=== PATIENT | female | born 1955 | race Caucasian/White ===

== ENCOUNTER 2021-11-02 11:17 | Emergency (ER) | payer MEDICARE, SELFPAY ==
--- NOTE | ~2021-11-02 | CT_ITS ---
EXAMINATION: CT lumbar spine wo con DATE: 11/02/2021 12:01 INDICATION: Ground-level fall. TECHNIQUE: Computed tomography (CT) of the lumbar spine was performed without intravenous contrast. A utomated exposure control and iterative reconstruction technique were employed. The dose-length produ ct was 1565.37 mGy-cm. COMPARISON: CT lumbar spine 03/26/2017 FINDINGS: There is hypolordosis of lumbar spine. There is mild chronic anterior wedging of T11 verteb ral body. There is severely decreased disc height from L2-L3 through L5-S1 with interbody fusion at L 3-L4. There is calcification of the thecal sac from L3 to L5. The following disc levels are specifica lly discussed: L1-L2: The disc is bulging. There is severe bilateral facet joint osteoarthritis. There is moderate r ight and mild left neural foraminal stenosis. There is mild central canal stenosis. L2-L3: The disc is bulging. There is severe bilateral facet joint osteoarthritis. There is moderate b ilateral neural foraminal stenosis. There is moderate central canal stenosis with posterior decompres arya. There is severe stenosis of right lateral recess. L3-L4: There is moderate bilateral facet joint hypertrophy. There is moderate bilateral neural forami nal stenosis. There is mild central canal stenosis with posterior decompression. L4-L5: The disc is bulging. There is severe bilateral facet joint osteoarthritis. There is severe rig ht and moderate left neural foraminal stenosis. There is moderate central canal stenosis. L5-S1: The disc is bulging. There is severe bilateral facet joint osteoarthritis. There is moderate b ilateral neural foraminal stenosis. There is mild central canal stenosis. IMPRESSION: 1. No fracture. 2. Severe lumbar spondylosis. 3. Arachnoiditis ossificans. Reviewed, dictated and finalized at location A.
[2021-11-02 11:18] VITALS: BP 131/104; PULSE 57; RESP 20; TEMP 36.7; O2SAT 100
--- NOTE | 2021-11-02 11:24 | ED_ITS ---
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 She landed on her buttock. She denies hitting her head or LOC and she has no neck or upper back pain. Onset (ago): hour(s) Fall from: wheelchair Fall witnessed: yes, by bystander Place fall occurred: street Loss of consciousness: none Prolonged down time: no Symptoms prior to fall: none Related Data Allergies Allergy/AdvReac Type Severity Reaction Status Date / Time latex Allergy Unknown Verified 03/25/17 19:50 Course Course Emergency Course: Pt CT is unremarkable for fracture. She and family at [facility] are advised of imaging results. Pain is controlled at this time. Plan to discharge home with RICE instructions, home medications for pain and muscle stiffness, FU with PCP if pain is not improving in 3-5 days Vital Signs Vital signs: Vital Signs Temperature 36.7 C 11/02/21 11:18 Pulse Rate 57 L 11/02/21 11:18 Respiratory Rate 20 11/02/21 11:18 Blood Pressure 131/104 H 11/02/21 11:18 Pulse Oximetry 100 11/02/21 11:18 Temperature 36.8 C 11/02/21 11:35 Pulse Rate 58 L 11/02/21 12:16 Respiratory Rate 28 H 11/02/21 12:16 Blood Pressure 172/67 H 11/02/21 12:16 Pulse Oximetry 97 11/02/21 12:16 MDM - Fall Differential Diagnosis Differential diagnosis: Likely other (fracture, sprain, strain, contusion) Discharge Plan Discharge Clinical Impression: Low back strain, Fall from ground level Patient Disposition: Home, Self-Care Condition: Improved Instructions: Antibiotic Form, Contusion in Adults (ED), Muscle Strain (ED) Additional Instructions: REST, ICE SORE AREAS OFF AND ON FOR 2 DAYS, CONTINUE HOME MEDICATIONS DIRECTED. FOLLOW UP WITH YOUR PRIMARY CARE PROVIDER IF PAIN IS NOT IMPROVING IN 3-5 DAYS Follow-up/Referrals: Robin,MD Soy [Primary Care Provider] -
[2021-11-02 11:35] VITALS: BP 186/88; PULSE 56; RESP 21; TEMP 36.8; O2SAT 100
[2021-11-02] MEDS: MORPHINE SULFATE (*CRX) 4 MG/ML INJ IV PUSH (11:50)
[2021-11-02 12:16] VITALS: BP 172/67; PULSE 58; RESP 28; O2SAT 97
[2021-11-02 12:37] VITALS: BP 156/72; PULSE 58; RESP 23; TEMP 36.7; O2SAT 96
--- NOTE | 2021-11-23 08:53 | ED_ITS ---
HPI - Fall General Chief Complaint: Fall Stated Complaint: ground level fall Time Seen by Provider: 11/02/21 11:20 Source: patient Mode of arrival: ambulatory Limitations: no limitations History of Present Illness Place fall occurred: street Related Data Allergies Allergy/AdvReac Type Severity Reaction Status Date / Time latex Allergy Unknown Verified 03/25/17 19:50 Review of Systems Review of Systems: refer to HPI Musculoskeletal: Musculoskeletal: Reports as per HPI and Reports back pain Comments: mild discomfort of the mid and low back, more concerned she may have caused an injury secondary to chronic back pain, denies bowel or bladder incontinence, saddle anesthesia, radicular pain or otherwise associated symptoms. Exam Const: Orientation/consciousness: patient oriented x3 HENMT: Head: normal to inspection Eyes: Conjunctivae: conjunctivae normal Pupils: Equal, round and reactive p upils present Neck: Neck: normal visual inspection Chest: Chest palpation & inspection: normal inspection of the chest Resp: Effort & Inspection: normal respiratory effort Cardio: Rate: regular rate GI: GI Palp: Yes Soft to palpation : General: Yes no CVA tenderness Back/Spine/Pelvis: Other: Pt is diffusely TTP over the lumbar paraspinal muscles bilaterally. No C T or L spine point tenderness, no step offs Neuro: General: patient oriented x3, moves all extremities, no meningeal signs and CN's II-XI intact bilaterally Extrem: General: normal to inspection Course Vital Signs Vital signs: Vital Signs Temperature 36.7 C 11/02/21 11:18 Pulse Rate 57 L 11/02/21 11:18 Respiratory Rate 20 11/02/21 11:18 Blood Pressure 131/104 H 11/02/21 11:18 Pulse Oximetry 100 11/02/21 11:18 Temperature 36.7 C 11/02/21 12:37 Pulse Rate 58 L 11/02/21 12:37 Respiratory Rate 23 H 11/02/21 12:37 Blood Pressure 156/72 H 11/02/21 12:37 Pulse Oximetry 96 11/02/21 12:37 MDM - Fall MDM Narrative Medical decision making narrative: contusion, fracture (given bariatric size), sprain, strain Differential Diagnosis Differential diagnosis: Likely compression fracture Discharge Plan Discharge Clinical Impression: Low back strain, Fall from ground level Patient Disposition: Home, Self-Care Condition: Improved Instructions: Antibiotic Form, Muscle Strain (ED), Contusion in Adults (ED) Additional Instructions: REST, ICE SORE AREAS OFF AND ON FOR 2 DAYS, CONTINUE HOME MEDICATIONS DIRECTED. FOLLOW UP WITH YOUR PRIMARY CARE PROVIDER IF PAIN IS NOT IMPROVING IN 3-5 DAYS Follow-up/Referrals: Robin,MD Soy [Primary Care Provider] - Time of Disposition: 12:32
== END 2021-11-02 12:45 | disposition home or self-care (01) ==
PROVIDERS: Emergency Provider Nurse Practitioner Family; PCP Internal Medicine
DX: S39.012A Strain of muscle, fascia and tendon of lower back, initial encounter (principal); M54.9 Dorsalgia, unspecified; G89.29 Other chronic pain; W05.0XXA Fall from non-moving wheelchair, initial encounter
CPT/HCPCS: 72131; 96374; 99284; J2270

== ENCOUNTER 2025-02-12 19:25 | Inpatient (IN) | payer MEDICARE, SELFPAY ==
--- NOTE | ~2025-02-12 | US_ITS ---
EXAMINATION: US renal BI DATE: 02/13/2025 16:14 INDICATION: Hydronephrosis TECHNIQUE: Multiple ultrasound grayscale images of the kidneys were obtained. COMPARISON: None. FINDINGS: The right kidney measures 12.2 x 6.2 x 6.0 cm. The left kidney measures 11.6 x 6.7 x 5.0 cm. The kidn eys demonstrate normal echogenicity. There is no hydronephrosis in either kidney. No stones identifi ed. The bladder is visualized, likely decompressed with a Olvera catheter reportedly in place. IMPRESSION: 1. Normal kidneys without hydronephrosis. Reviewed, dictated and finalized at location A.
--- NOTE | ~2025-02-12 | CT_ITS ---
Non-contrast CT scan of the Abdomen and Pelvis Clinical indication: Pyelonephritis Technique: 2.5 mm axial scans were obtained through the abdomen and pelvis without intravenous or or al contrast. Dose reduction technique was used on this scan by utilizing automated exposure control a nd iterative reconstruction technique. The dose-length product (DLP) was 2023.46 mGy-cm. Findings: Images through the lung bases reveal mild left basilar atelectatic change. There is mild to moderate right hydroureteronephrosis. There is mild left hydroureteronephrosis. No o bstructing stones are identified. There is a 3 mm nonobstructing left renal stone. The liver, spleen, pancreas, and adrenals appear normal. Gallbladder absent. There are atheroscleroti c calcifications of the aorta. . There is no evidence of bowel obstruction. Images through the pelvis were performed. There is no evidence of ascites or lymphadenopathy. Urinary bladder diffusely distended, but otherwise unremarkable. No adnexal mass. There is severe degenerative spondylosis of the visualized spine. Impression: Bilateral hydroureteronephrosis, as detailed above, right worse than left, without obstructing stone or mass evident. 3 mm nonobstructing left renal stone. Reviewed, dictated and finalized at location . Impression: Bilateral hydroureteronephrosis, as detailed above, right worse than left, with out obstructing stone or mass evident. 3 mm nonobstructing left renal stone.
--- NOTE | ~2025-02-12 | XR_ITS ---
CHEST RADIOGRAPH CLINICAL HISTORY: fever . COMPARISON: None available TECHNIQUE: Single portable view of the chest. FINDINGS Cardiomediastinal silhouette is unremarkable. Elevation of the left hemidiaphragm with adjacent compressive atelectasis. Increased interstitial markings are identified bilaterally, findings suggesting mild pulmonary vascul ar congestion. Blunting of the left costophrenic sulcus suggesting a small left-sided pleural effusion. The remainder of the lungs are clear. IMPRESSION: Mild pulmonary vascular congestion with a small left-sided pleural effusion. Reviewed, dictated and finalized at location A.
--- NOTE | ~2025-02-12 | US_ITS ---
Abdominal Sonogram: Real-time sonographic imaging of the abdomen was performed. Clinical History: Thrombocytopenia Findings: The liver appears normal with no evidence of mass lesion or bile duct dilatation. Main por bob vein demonstrates normal direction of flow. The spleen is normal in size without evidence of foca l lesion. The gallbladder is absent, compatible prior cholecystectomy. The common bile duct measures 8 mm. The pancreas, aorta, and IVC are largely obscured, but no gross abnormality seen. The right kidney measures 12.8 cm in length and the left kidney measures 12.2 cm. There is no hydronephrosis o r renal calculus. Impression: No significant abnormality seen. Somewhat suboptimal imaging related to patient body habitus. Reviewed, dictated and finalized at location . Impression: No significant abnormality seen. Somewhat suboptimal imaging related to patient body habitus.
[2025-02-12 19:20] VITALS: BP 171/69; PULSE 99; RESP 29; TEMP 38.4; O2SAT 95
--- NOTE | 2025-02-12 19:28 | ECG_ITS ---
Test Date: 2025-02-12 19:29:08 Measurements Intervals [place] Rate: 88 P: 57 AL: 175 QRS: -24 QRSD: 110 T: 66 QT: 346 QTc: 421 Interpretive Statements SINUS RHYTHM INTRAVENTRICULAR CONDUCTION DELAY DELAYED PRECORDIAL R/S TRANSITION LEFT VENTRICULAR HYPERTROPHY AND ST-T CHANGE BASELINE ARTIFACT- II, III, AVR, AVL, AVF, V1-V2, V4 BORDERLINE ECG No previous ECG available for comparison Electronically Signed On 02-12-2025 20:53:15 CDT by Homer Patrick D.O.
--- NOTE | 2025-02-12 19:43 | ED.GENADULT ---
HPI - General Adult General Chief complaint: Fever Stated complaint: FEVER, AMS, SEPSIS ALERT History of Present Illness HPI narrative: 69-year-old female with history of diabetes presents to the emergency department for evaluation for intermittent altered mental status. Patient does have a prior history of a left BKA and does have chronic wounds on her right lower extremity she is followed by wound care at [facility]. Patient has had worsening altered mental status fever for the past few days. Patient arrived to the emergency department by EMS. Patient's like complaint is that she feels shaky but patient family states that she does have a baseline tremor and this is unchanged than her baseline. Patient's temperature was 101.1? on arrival. Related Data Allergies Allergy/AdvReac Type Severity Reaction Status Date / Time latex Allergy Unknown Verified 03/25/17 19:50 Review of Systems Review of Systems: All systems reviewed & are unremarkable except as noted in HPI and below Exam Narrative: APPEARANCE: Ill-appearing HEAD: normocephalic, atraumatic. EYES: PERRLA/EOMI, conjunctivae clear. NOSE: Normal no drainage EARS:TMS clear with good light reflex. THROAT: Pharynx clear, no exudate. NECK: Supple. No adenopathy, no masses. RESPIRATORY: Airway patent, respirations nonlabored. Clear to auscultation bilaterally, no rales, rhonchi, wheezing. CARDIOVASCULAR: Regular rate and rhythm without murmurs rubs or gallops. ABDOMINAL: Soft, nontender, nondistended, normal bowel sounds MUSCULOSKELETAL: Moves all extremities. Strength/ROM intact, No edema, No calf tenderness. NEURO: Alert. Cranial nerves II through XII intact. Grossly intact SKIN: Warm, dry. Normal Color Course Vital Signs Vital signs: Vital Signs Temperature 101.1 F H 02/12/25 19:20 Pulse Rate 99 02/12/25 19:20 Respiratory Rate 29 H 02/12/25 19:20 Blood Pressure 171/69 H 02/12/25 19:20 Pulse Oximetry 95 02/12/25 19:20 Oxygen Delivery Room Air 02/12/25 19:20 Temperature 102.5 F H 02/12/25 21:33 Pulse Rate 78 02/12/25 21:33 Respiratory Rate 16 02/12/25 21:33 Blood Pressure 125/65 02/12/25 21:33 Pulse Oximetry 98 02/12/25 21:33 Oxygen Delivery Room Air 02/12/25 19:20 Medical Decision Making [facility] Narrative Medical decision making narrative: 69-year-old female presents emergency department for evaluation for altered mental status and tremor. Patient does have a chronic lower extremity wound on the right leg that does not appear to be acutely infected. Patient was febrile in the emergency department she was treated with Tylenol and ibuprofen, blood cultures were ordered. Patient has no elevated leukocytosis and hemoglobin 11.4, INR is 1.2, patient does have a mildly elevated glucose 186 with an anion gap of 13 with normal kidney function, UA was nitrate positive leukocyte esterase positive +4 bacteria and 50-100 white blood cells, urine culture was ordered and patient was started on IV Levaquin due to her penicillin allergy. Differential Diagnosis Differential Diagnosis: COVID, RSV, influenza, UTI, pneumonia Vital Signs Vital Signs: Vital Signs Temperature 101.1 F H 02/12/25 19:20 Pulse Rate 99 02/12/25 19:20 Respiratory Rate 29 H 02/12/25 19:20 Blood Pressure 171/69 H 02/12/25 19:20 Pulse Oximetry 95 02/12/25 19:20 Oxygen Delivery Room Air 02/12/25 19:20 Temperature 102.5 F H 02/12/25 21:33 Pulse Rate 78 02/12/25 21:33 Respiratory Rate 16 02/12/25 21:33 Blood Pressure 125/65 02/12/25 21:33 Pulse Oximetry 98 02/12/25 21:33 Oxygen Delivery Room Air 02/12/25 19:20 Lab Data Lab results reviewed: Yes I reviewed the patient's lab results. 02/12/25 19:46 02/12/25 19:46 Labs: Lab Results 02/12/25 02/12/25 Range/Units 19:46 20:18 WBC 9.5 (4.5-10.0) K/mm3 RBC 4.02 L (4.2-5.4) M/mm3 Hgb 11.4 L (12.0-15.0) g/dL Hct 35.5 L (37.0-47.0) % MCV 88.3 (80-100) fl MCH 28.4 (26-34) pg MCHC 32.1 (32-36) g/dl RDW 14.5 (11.5-14.5) % Plt Count 111 L (150-375) k/mm3 MPV 11.0 H (7.4-10.4) fl Immature Gran % (Auto) 0.4 (0-0.5) % Neut % (Auto) 90.1 H (45.5-73.1) % Lymph % (Auto) 3.8 L (18.3-44.2) % [place] % (Auto) 4.0 (2.6-8.5) % Eos % (Auto) 1.3 (0-4.4) % Baso % (Auto) 0.4 (0.2-1.2) % Lymph # (Auto) 0.36 L (0.9-3.2) K/mm3 [place] # (Auto) 0.4 (0.1-0.6) K/mm3 Eos # (Auto) 0.1 (0-0.3) K/mm3 Baso # (Auto) 0.0 (0.0-0.1) K/mm3 Abs Immat Gran (auto) 0.04 H (0.00-0.031) K/mm3 Absolute Neuts (auto) 8.6 H (1.3-6.7) K/mm3 Absolute Nucleated RBC 0.000 (0.0-0.012) K/mm3 Nucleated RBC % 0.0 (0.0-0.2) % PT 14.8 H (11.1-14.7) Seconds INR 1.2 APTT 22.9 (22.3-36.8) Seconds Sodium 137 (137-145) mmol/L Potassium 4.6 (3.4-5.0) mmol/L Chloride 106 (98-107) mmol/L Carbon Dioxide 18 L (22-30) mmol/L Anion Gap 13 H (4-12) mmol/L BUN 42 H (7-17) mg/dL Creatinine 0.96 (0.7-1.0) mg/dL Estim Creat Clear Calc 88 ml/min Estimated GFR 58 L (59 - ) Glucose 186 H (65-110) mg/dL Lactic Acid 1.3 (0.7-2.0) mmol/L Calcium 10.1 (8.4-10.2) mg/dL Total Bilirubin 0.7 (0.2-1.3) mg/dL AST 69 H (14-36) U/L ALT 58 H (6-35) U/L Alkaline Phosphatase 124 (38-126) U/L C-Reactive Protein 2.3 H (<1.0) mg/dL NT-Pro-B Natriuret Pep 404 H (19.9-100) pg/mL Total Protein 7.6 (6.3-8.2) g/dL Albumin 4.1 (3.5-5.1) g/dL Urine Color Yellow (Yellow) Urine Appearance Cloudy H (Clear) Urine pH 5.0 (5.0-9.0) Ur Specific [place] 1.018 (1.001-1.035) Urine Protein 2+ H (Negative) mg/dL Urine Glucose (UA) 3+ H (Negative) mg/dL Urine Ketones Negative (Negative) mg/dL Ur Blood (Man) Negative (Negative) Urine Nitrate Positive H (Negative) Urine Bilirubin Negative (Negative) Urine Urobilinogen 0.2 (<2.0) mg/dL Leukocyte Esterase Rfl 2+ H (Negative) RAVINDER/UL Urine RBC 0-2 (0-2) /hpf Urine WBC 51-100 H (0-3) /hpf Ur Squamous Epith Cells Occasional (Few) /hpf Urine Bacteria 4+ H /hpf Urine Casts 0-2 Imaging Data Radiologist's impression: Impressions Chest X-Ray 02/12/25 19:52 IMPRESSION: Mild pulmonary vascular congestion with a small left-sided pleural effusion. Discharge Plan Discharge Clinical Impression: Pyelonephritis, Fever Patient Disposition: Still a Patient Condition: Serious
[2025-02-12] MEDS: ACETAMINOPHEN 500 MG TABLET 1000 MG PO (19:52)
[2025-02-12] MEDS: KETOROLAC 30 MG/ML VIAL (*BKC) IV PUSH (19:52)
[2025-02-12 19:54] LABS: Hematocrit 35.5 % (37.0-47.0); Hemoglobin 11.4 g/dL (12.0-15.0); Immature Granulocyte Percent A 0.4 % (0-0.5); Lymphocytes Absolute Auto 0.36 K/mm3 (0.9-3.2); Mean Corpuscular HGB Conc 32.1 g/dl (32-36); Mean Corpuscular Hemoglobin 28.4 pg (26-34); Mean Corpuscular Volume 88.3 fl (80-100); Nucleated Red Blood Cells Absolute Auto 0.000 K/mm3 (0.0-0.012); Nucleated Red Blood Cells Perc 0.0 % (0.0-0.2); Platelet Count Result 111 k/mm3 (150-375); Red Blood Count 4.02 M/mm3 (4.2-5.4); White Blood Count 9.5 K/mm3 (4.5-10.0)
[2025-02-12 20:08] LABS: Alanine Aminotransferase 58 U/L (6-35); Albumin Level 4.1 g/dL (3.5-5.1); Alkaline Phosphatase 124 U/L (38-126); Anion Gap 13 mmol/L (4-12); Aspartate Amino Transferase 69 U/L (14-36); Bilirubin,Total 0.7 mg/dL (0.2-1.3); Blood Urea Nitrogen 42 mg/dL (7-17); Calcium 10.1 mg/dL (8.4-10.2); Carbon Dioxide 18 mmol/L (22-30); Chloride 106 mmol/L (98-107); Estimated CRCL calculation 88 ml/min; Estimated Glomerular Filt Rate 58; Glucose 186 mg/dL (65-110); Potassium 4.6 mmol/L (3.4-5.0); Sodium 137 mmol/L (137-145); Total Protein 7.6 g/dL (6.3-8.2)
[2025-02-12 20:16] LABS: INR 1.2; Prothrombin Time 14.8 Seconds (11.1-14.7)
[2025-02-12 20:17] LABS: Partial Thromboplastin Time 22.9 Seconds (22.3-36.8)
[2025-02-12 20:29] LABS: Add Urine Microscopic? YES; Appearance Urine Cloudy (Clear); Glucose Urine UA 3+ mg/dL (Negative); Leukocyte Esterase Ur 2+ LEU/UL (Negative); Nitrate Urine Positive (Negative); Non Pathogenic Casts 0-2; Specific Grav Ur 1.018 (1.001-1.035)
[2025-02-12 20:50] LABS: CRP 2.3 mg/dL (<1.0)
[2025-02-12] MEDS: LACTATED RINGERS 1,000 ML 250 ML IV CONT (20:54)
[2025-02-12] MEDS: levoFLOXacin 750 MG/D5W 150 ML 750 MG/150 ML BAG 100 MG IVPB (20:55)
[2025-02-12 21:06] LABS: NT Pro B Type Natriuretic Pept 404 pg/mL (19.9-100)
[2025-02-12 21:10] LABS: Alveolar/Arterial O2 Gradient 43.7 mmHg; Carboxyhemoglobin 0.7 % THb (0-2.0); Fractional Inspired Oxygen 21 %; HCO3 ABG 19.4 mEq/l (22.0-26.0); Methemoglobin ABG 0.3 %THb (0-1.5); Oxygen Content ABG 14.8 %vol (16.0-22.0); Oxygen Saturation ABG 95.1 % (95.0-100.0); PCO2 ABG 29.3 mmHg (35.0-45.0); PO2 ABG 70.9 mmHg (80.0-100.0); PO2 FiO2 Ratio Arterial Blood 3.38 %; Reduced Hemoglobin 6.0 %THb (0-5.0)
[2025-02-12 21:12] LABS: Modified Allen's Test Pass; Site Drawn RIGHT RADIAL
[2025-02-12 21:33] VITALS: BP 125/65; PULSE 78; RESP 16; TEMP 39.2; O2SAT 98
[2025-02-12] MEDS: ACETAMINOPHEN 500 MG TABLET PO (21:51)
--- NOTE | 2025-02-12 21:51 | PM.IMHP ---
H&P: HPI History of Present Illness Date/Time: 02/12/25 21:51 Chief Complaint: Fever, incoherence, UTI Narrative: The patient presented with acute onset fever, incoherence, and malaise beginning around 5:30 PM today. She reports feeling well earlier in the day and developed symptoms suddenly after supper. She was brought to the hospital by ambulance from her home in [place], as advised by EMS for proximity, as her usual [facility] facilities were further away. She has a history of chronic right leg wounds (requiring bandage changes three times weekly) and a left leg amputation two years ago at [facility]. She denies any history of Parkinson?s disease or multiple sclerosis but reports rhythmic arm shaking of unclear etiology, which is not associated with any massive disease. She has been noted to be dehydrated and has evidence of a urinary tract infection. She has experienced confusion, prompting admission for overnight observation, which she reluctantly agreed to. She reports pain with movement in her right mid abdomen area (present for 3?4 weeks), but denies chest pain (in the cardiac sense) or shortness of breath. She has had decreased urinary frequency (possibly twice daily) and dysuria at the end of urination for about a month. No nausea or vomiting. She has been seen regularly [facility] every Monday, including earlier today. She reports feeling very cold at home prior to arrival, turning on the heat, which was likely related to the onset of her fever. She has a Dexcom continuous glucose monitor (model 7); currently worn on her abdomen because she kept dislodging in from her arm. Her recent blood glucose readings have been within a good range (last reading 124 mg/dL).. She reports significant thirst and dry tongue despite drinking substantial fluids (64 oz water from a 32-ounce cup and two root beers today), noting she is still dehydrated. No known medication allergies except latex and possibly another, unspecified, mild allergy that the patient cannot recall. Review of Systems Review of Systems: Constitutional: Fever, chills, malaise, incoherence, dehydration, significant thirst, dry tongue Respiratory: No shortness of breath Cardiovascular: No chest pain (cardiac type) Gastrointestinal: No nausea, no vomiting Genitourinary: Dysuria at end of urination (1 month), decreased urinary frequency (possibly twice daily) Musculoskeletal: Chronic right leg wounds, left leg amputation (2 years ago), pain with movement in chest area (3?4 weeks), rhythmic arm shaking of unclear etiology, not associated with massive disease Skin: Chronic right leg wounds Neurological: Confusion, incoherence, no known neurodegenerative disease (Parkinson's or MS) Endocrine: Diabetes (on Dexcom CGM), recent glucose readings normal Allergic/Immunologic: Latex allergy, possible additional mild allergy (unspecified) All systems reviewed & are unremarkable except as noted in HPI and below PMFSH Surgical History Surgical History Hx of left BKA Family History Family History Father Acute myocardial infarction Mother Diabetes mellitus Social History Social History Smoking status: Light tobacco smoker Tobacco type: cigarettes Second hand tobacco smoke exposure: Yes Alcohol intake: current Drinks per week: 0 Substance use: never Substance use type: does not use Do You Feel Safe in your Home?: Yes Lack of Transportation: No Lack of Food: Never True Current Housing: I Have Housing Concerned About Future Housing: No Difficulty Paying Gas/Electric Bills: No Difficulty Paying for Meds: No Currently Unemployed: No Education: Decline to Answer Difficulty w/ Childcare or Family Care: No Spiritual care concerns: No Meds Home Medications and Allergies Home Medications ?Medication ?Instructions ?Recorded ?Confirmed ?Type amlodipine 10 mg tablet 10 mg PO DAILY 02/13/25 02/13/25 History aripiprazole 10 mg tablet 10 mg PO DAILY 02/13/25 02/13/25 History atorvastatin 80 mg tablet 80 mg PO DAILY 02/13/25 02/13/25 History baclofen 10 mg tablet 10 mg PO TID PRN muscle spasm 02/13/25 02/13/25 History clopidogrel 75 mg tablet 75 mg PO DAILY 02/13/25 02/13/25 History dapagliflozin propanediol 10 mg 10 mg PO DAILY 02/13/25 02/13/25 History tablet (Farxiga) duloxetine 60 mg capsule,delayed 60 mg PO QAM 02/13/25 02/13/25 History release ezetimibe 10 mg tablet 10 mg PO DAILY 02/13/25 02/13/25 History hydralazine 50 mg tablet mg 02/13/25 History Allergies Allergy/AdvReac Type Severity Reaction Status Date / Time latex Allergy Unknown Unknown Verified 02/12/25 22:38 Vital Signs Vital Signs - 24 hr 02/12/25 19:20 02/12/25 21:33 Temperature 38.4 C H 39.2 C H Pulse Rate 99 78 Respiratory Rate 29 H 16 Blood Pressure 171/69 H Pulse Oximetry 95 98 Oxygen Delivery Room Air Exam Narrative: GENERAL: Obese, left BKA, wounds right leg, awake, alert, oriented, no acute distress HEAD: Normocephalic, atraumatic. ENT:? Mucous membranes dry despite drinking fluids well today CHEST: Clear to auscultation.? No respiratory distress. HEART: Regular rate and rhythm. ? Normal peripheral pulses. ABDOMEN: Soft, nontender, nondistended. EXTREMITIES: Left BKA, right leg with multiple chronic wounds, no drainage or erythema SKIN: Warm dry normal color NEURO: Alert and oriented x3. Bilateral upper extremity gross tremors which patient states is chronic PSYCH: Normal mood and affect H&P: Results Labs Labs: Short CBC 02/12/25 Range/Units 19:46 WBC 9.5 (4.5-10.0) K/mm3 Hgb 11.4 L (12.0-15.0) g/dL Hct 35.5 L (37.0-47.0) % Plt Count 111 L (150-375) k/mm3 BMP 02/12/25 19:46 Sodium 137 Potassium 4.6 Chloride 106 Carbon Dioxide 18 L BUN 42 H Creatinine 0.96 Glucose 186 H Calcium 10.1 Liver Function 02/12/25 Range/Units 19:46 Total Bilirubin 0.7 (0.2-1.3) mg/dL AST 69 H (14-36) U/L ALT 58 H (6-35) U/L Alkaline Phosphatase 124 (38-126) U/L Albumin 4.1 (3.5-5.1) g/dL Urine 02/12/25 Range/Units 20:18 Urine Color Yellow (Yellow) Urine Appearance Cloudy H (Clear) Urine pH 5.0 (5.0-9.0) Ur Specific [place] 1.018 (1.001-1.035) Urine Protein 2+ H (Negative) mg/dL Urine Glucose (UA) 3+ H (Negative) mg/dL ABG ABG results: PH 7.439, pCO2 29.3, PO2 70.9, HC03 19.4, O2 saturation 95.1 Attestation: I personally reviewed and interpreted this ABG as follows: Interpretation: Compensated metabolic acidosis Pulse Oximetry SpO2 results: 95-100% on room air Attestation: I personally reviewed and interpreted this pulse oximetry as follows: Interpretation: No need for supplemental oxygenation at this ECG Attestation: I personally reviewed and interpreted this ECG as follows: ECG completion date: 02/12/25 ECG completion time: 19:29 Prior ECG tracings: not available for review Interpretation: Sinus rhythm rate of 88 SD interval 175 QRS duration 110 QTC 421 QRS axis -24 2, STEMI, nonspecific ST changes and LVH findings Imaging Chest x-ray: Radiologist's impression: CHEST RADIOGRAPH CLINICAL HISTORY: fever . COMPARISON: None available TECHNIQUE: Single portable view of the chest. FINDINGS Cardiomediastinal silhouette is unremarkable. Elevation of the left hemidiaphragm with adjacent compressive atelectasis. Increased interstitial markings are identified bilaterally, findings suggesting mild pulmonary vascular congestion. Blunting of the left costophrenic sulcus suggesting a small left-sided pleural effusion. The remainder of the lungs are clear. IMPRESSION: Mild pulmonary vascular congestion with a small left-sided pleural effusion. Reviewed, dictated and finalized at location A. Assessment and Plan Assessment and plan (1) Pyelonephritis: Code(s): N12 - Tubulo-interstitial nephritis, not specified as acute or chronic Status: Acute Assessment and Plan: -Presented with fever, altered mental status -Mental status improved with medical treatments so far -Fever resistant to Tylenol and ketorolac -WBC 9.5, CRP 2.3 -abnormal urine with positive nitrates, 2+ leukocyte esterase, 51-100 wbc's and 4+ urine bacteria -urine and blood cultures in process -prior history of requiring straight catheterization for urinary retention, bladder scan Q6 and straight cath if retaining (2) Fever: Code(s): R50.9 - Fever, unspecified Status: Acute Assessment and Plan: -T-max 39.2, took ibuprofen at home -Still 38.3 after a gram of Tylenol and IV ketorolac -Additional 500 mg Tylenol given -IV Levaquin given for pyelonephritis in ER, chosen due to possible PCN allergy per ER provider -Patient and family not able to confirm PCN allergy, only latex and maybe something else minor -CT scan abdomen pelvis ordered to rule out obstructive uropathy (3) Pulmonary vascular congestion: Code(s): R09.89 - Other specified symptoms and signs involving the circulatory and respiratory systems Status: Acute Assessment and Plan: -CXR with significant findings of pulmonary vascular congestion and small pleural effusion -BNP 404 -IV fluids LR 1500 mL given over 6 hours to prevent flash pulmonary edema -No records on file here, obtain echocardiogram recent report or obtain echocardiogram imaging recommended. (4) Metabolic acidosis: Code(s): E87.20 - Acidosis, unspecified Status: Acute Assessment and Plan: -Urine ketones noted with anion gap of 13 -Normal blood sugar -Patient appears mildly dehydrated with dry mucous membranes but is not in DKA -ABG shows overcompensated metabolic acidosis or more likely chronic metabolic alkalosis with acute metabolic acidosis and respiratory compensation of acute change -Patient does take Farxiga, possible mild euglycemic DKA initially present with confusion, nausea, abdominal pain... -Recheck metabolic panel in the morning and and will add beta-hydroxybutyrate (5) Diabetes mellitus: Code(s): E11.9 - Type 2 diabetes mellitus without complications Status: Acute Assessment and Plan: -Previously very uncontrolled and led to left BKA -Currently takes Farxiga and is better controlled -Wears Dexcom 7 but is on abdomen instead of back of arm, uncertain if this is ok with version 7... -Add A1c to labs -ACHS fingerstick glucose checks with high dose SSI -Consider holding Farxiga/Jardiance if Beta-hydroxybutyrate is elevated (6) Hx of left BKA: Code(s): Z89.512 - Acquired absence of left leg below knee Status: Acute Assessment and Plan: -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 diabetes -Chronic wounds present on right lower extremity, follows with [facility] VTE Prophylaxis VTE prophylaxis: pharmacologic ordered (Lovenox 40 mg BID (due to weight) Total time spent with this patient 115 minutes including critical care time documented below: Due to a high probability of clinically significant, life threatening deterioration, the patient required my highest level of preparedness to intervene emergently and I personally spent this critical care time directly and personally managing the patient. This critical care time included obtaining a history; examining the patient; pulse oximetry; ordering and review of studies; arranging urgent treatment with development of a management plan; evaluation of patient's response to treatment; frequent reassessment; and discussions with other providers. It was exclusive of separately billable procedures and treating other patients and teaching time. Please see Assessment and Plan section and the rest of the note for further information on patient assessment and treatment. Critical Care time: 35 minutes Hospitalist MIPS Advance Care Plan I have confirmed that the patient's Advanced Care Plan is present, code status is documented, or surrogate decision maker is listed in patient medical record.: Yes Medication Reconciliation I have utilized all available resources to obtain, update and review the patients current medications (includes all prescriptions, OTC, herbals, cannabis, and nutritional supplements).: Yes
[2025-02-12 22:50] VITALS: TEMP 38.3
[2025-02-12 23:27] VITALS: BMI 38.2
--- NOTE | 2025-02-12 23:47 | ADMGEN ---
This patient, Cassi Yo, was admitted to [facility] Surg Room 324-02, arrived to the floor at 2252. Patient/family oriented to hospital policies and general routines including ID bracelet, bed and alarms, visiting hours, pain management, procedures, bathroom and other care routines, personal items, smoking policy, room service/diet, and visiting hours. Information on how to activate the Rapid Response Team has been discussed. Patient/Family are encouraged to report perceived risks to care and to ask questions if they do not understand what they are told or what they should do.
[2025-02-13] VITALS (13 sets, daily range): BP systolic 125–154; BP diastolic 58–91; PULSE 59–92; RESP 16–24; TEMP 36.1–37.1; O2SAT 94–100
--- NOTE | 2025-02-13 | ECHO_ITS ---
Patient Info Name: Cassi Yo Age: 69 years : 1955 Gender: Female Ht: 75 in Wt: 306 lbs BSA: 2.76 m2 HR: 74 bpm BP: 152 / 84 mmHg Technical Quality: Good Exam Date: 02/13/2025 11:39 AM Patient Status: O Admit Date: 02/12/2025 Exam Type: CA echo dop color flow w con Complete two-dimensional, color flow and Doppler transthoracic echocardiogram is performed with contrast to opacify the left ventricle and to improve the deliniation of the left ventricle endocardial borders. Staff Referring Physician: Jayne Green MD Senior Analyst: Eileen Rodrigez Attending Provider: Antione Deras Contrast/Agitated Saline Contrast/Ag. Saline: Definity Amount: 3.00 ml Administered By: Eileen Rodrigez Existing IV Access: Yes IV Access Condition: patent with no signs of infiltration Summary 1. There is normal biventricular size and systolic function. 2. There are no significant valvular abnormalities. Left Ventricle The left ventricle is normal in size and systolic function. The left ventricular ejection fraction is visually estimated to be 60-65%. Right Ventricle The right ventricle is normal in size and systolic function. Left Atria The left atrium is normal size. Right Atria The right atrium is normal size. Atrial Septum Atrial septum is visually intact. Aortic Valve The aortic valve is trileaflet and opens well. There is no aortic regurgitation. Pulmonic Valve The pulmonic valve is not well visualized. There is no pulmonic valve regurgitation. Mitral Valve The mitral valve leaflets are sclerotic. There is no mitral stenosis. There is trace mitral regurgitation. Tricuspid Valve The tricuspid valve is grossly normal. There is trace tricuspid regurgitation. Pericardium/Pleural Pericardium is normal in appearance with no evidence for significant pericardial effusion. Inferior Vena Cava Inferior vena cava is not well visualized. Aorta The aortic root at the level of the sinus of Valsalva measures 3.0 cm in diameter. Left Ventricular Outflow Tract Name Value Normal LVOT 2D LVOT Diameter 2.2 cm LVOT Doppler LVOT Peak Velocity 152 cm/s LVOT Peak Gradient 9 mmHg LVOT Mean Gradient 5 mmHg LVOT VTI 33 cm LVOT VTI/AV VTI Ratio 0.8 LVOT Stroke Volume 128 ml LVOT CO 9.4 l/min LVOT CI 3.4 l/min/m2 Pulmonic Valve Name Value Normal RVOT Doppler RVOT Peak Velocity 117 cm/s RVOT Peak Gradient 6 mmHg PV Doppler PV Peak Velocity 138 cm/s PV Peak Gradient 8 mmHg Mitral Valve Name Value Normal MV Diastolic Function MV E Peak Velocity 92 cm/s MV A Peak Velocity 95 cm/s MV E/A 1.0 MV Decel Time (PW) 285 ms MV Annular TDI MV E/e' (Septal) 11.2 MV E/e' (Lateral) 7.2 MV E/e' (Average) 9.2 Tricuspid Valve Name Value Normal TV Regurgitation Doppler TR Peak Velocity 259 cm/s TR Peak Gradient 27 mmHg Aortic Valve Name Value Normal AV Doppler AV Peak Velocity 207 cm/s AV Peak Gradient 17 mmHg AV Mean Gradient 8 mmHg AV VTI 43 cm AV Area (Cont Eq VTI) 2.9 cm2 >=3.0 AV Area (Cont Eq Honorio) 2.9 cm2 AV DI (Honorio) 0.74 AV Regurgitation 2D LVOT Area 3.9 cm2 Ventricles Name Value Normal LV Dimensions 2D/MM IVS Diastolic Thickness (2D) 1.3 cm 0.6-1.0 LVID Diastole (2D) 4.5 cm 3.8-5.2 LVIW Diastolic Thickness (2D) 1.0 cm 0.6-0.9 LVID Systole (2D) 3.0 cm 2.2-3.5 LVOT Diameter 2.2 cm LV Mass (2D Cubed) 184.85 g 67.00-162.00 LV Mass Index (2D Cubed) 67 g/m2 43-95 Relative Wall Thickness (2D) 0.44 <=0.42 LV Fractional Shortening/Ejection Fraction 2D/MM LV Fractional Shortening (2D) 35 % 27-45 LV EF (2D Teichholz) 64 % LV Diastolic Volume (4C MOD) 140 ml LV EF (4C MOD) 65 % LV Diastolic Volume (2C MOD) 91 ml LV EF (2C MOD) 54 % LV Diastolic Volume (BP MOD) 118 ml 46-106 LV Diastolic Volume Index (BP MOD) 43 ml/m2 29-61 LV Systolic Volume (BP MOD) 45 ml 14-42 LV Systolic Volume Index (BP MOD) 16 ml/m2 8-24 LV EF (BP MOD) 62 % 54-74 LV Diastolic Length (4C) 9.1 cm LV Systolic Length (4C) 8.4 cm LV Stroke Volume (4C MOD) 91 ml Atria Name Value Normal LA Dimensions LA Volume (4C A-L) 63 ml LA Volume (BP A-L) 65 ml RA Dimensions RA Systolic Major Solon Length (4C) 6.2 cm 2.2-2.8 RA Area (4C) 20.4 cm2 <=18.0 Report Signatures
[2025-02-13 01:41] LABS: Hemoglobin A1C 6.3 % (<5.7)
[2025-02-13 02:09] LABS: Procalcitonin 0.6 ng/mL
--- NOTE | 2025-02-13 05:19 | PC.NURSE ---
Patient stated that her sister Allyn would be in today 02/13/25 to bring in her Dexcom Monitor and Medication list.
[2025-02-13 07:04] LABS: Hematocrit 34.2 % (37.0-47.0); Hemoglobin 10.6 g/dL (12.0-15.0); Immature Granulocyte Percent A 0.4 % (0-0.5); Immature Platelet Fraction Pct 2.4 % (0.9-11.2); Lymphocytes Absolute Auto 0.26 K/mm3 (0.9-3.2); Mean Corpuscular HGB Conc 31.0 g/dl (32-36); Mean Corpuscular Hemoglobin 27.8 pg (26-34); Mean Corpuscular Volume 89.8 fl (80-100); Nucleated Red Blood Cells Absolute Auto 0.000 K/mm3 (0.0-0.012); Nucleated Red Blood Cells Perc 0.0 % (0.0-0.2); Platelet Count Result 74 k/mm3 (150-375); Red Blood Count 3.81 M/mm3 (4.2-5.4); White Blood Count 7.5 K/mm3 (4.5-10.0)
[2025-02-13 07:21] LABS: Beta-Hydroxybutyrate/Acetoacetate 0.65 mmol/L (0.02-0.27)
[2025-02-13 07:22] LABS: Alanine Aminotransferase 119 U/L (6-35); Albumin Level 3.8 g/dL (3.5-5.1); Alkaline Phosphatase 140 U/L (38-126); Anion Gap 12 mmol/L (4-12); Aspartate Amino Transferase 188 U/L (14-36); Bilirubin,Total 0.9 mg/dL (0.2-1.3); Blood Urea Nitrogen 37 mg/dL (7-17); Calcium 9.9 mg/dL (8.4-10.2); Carbon Dioxide 19 mmol/L (22-30); Chloride 105 mmol/L (98-107); Estimated CRCL calculation 75 ml/min; Estimated Glomerular Filt Rate 52; Glucose 171 mg/dL (65-110); Magnesium 1.9 mg/dL (1.6-2.3); Potassium 4.1 mmol/L (3.4-5.0); Sodium 136 mmol/L (137-145); Total Protein 7.1 g/dL (6.3-8.2)
[2025-02-13] MEDS: DULoxetine HCL 60 MG CAPSULE.DR PO (08:36)
[2025-02-13] MEDS: CLOPIDOGREL BISULFATE 75 MG TABLET PO (08:36)
[2025-02-13] MEDS: EZETIMIBE 10 MG TABLET PO (08:36)
[2025-02-13] MEDS: ATORVASTATIN 40 MG TABLET 80 MG PO (08:36)
[2025-02-13] MEDS: ENOXAPARIN 40 MG/0.4 ML SYRINGE SUB-Q (08:57)
[2025-02-13] MEDS: PERFLUTREN LIPID MICROSPHERES 1.5 ML VIAL DILUTED TO 10 ML TOTAL VOLUME IV PUSH (11:45)
[2025-02-13] MEDS: INSULIN ASPART (*BKC) 100 UNITS/ML 20 UNITS SUB-Q ×2 (12:06→17:46)
--- NOTE | 2025-02-13 12:19 | IVDEFINITY ---
Prior to administration of IV Definity the patient was educated on the risks and benefits of the imaging enhancing agent including potential adverse side effects. The patient verbalized understanding. Allergies were verified. No exclusion criteria were identified and at least one of the following inclusion criteria were met: 1) physician request, 2) patient technically difficult to image (per the [place] [employer]ocardi[employer] guidelines of two or more segments not discernable within the apical view), or 3) questionable left ventricular function. ?
--- NOTE | 2025-02-13 13:39 | PM.IMPN ---
Progress Note: A&P Assessment and Plan (1) Pyelonephritis: Code(s): N12 - Tubulo-interstitial nephritis, not specified as acute or chronic Status: Acute Assessment and Plan: -Presented with fever, altered mental status -pt has clemons cath in situ -prior history of requiring straight catheterization for urinary retention - consult urology - start iv levaquin - wc much improved - order renal us - await UC and BC (2) Fever: Code(s): R50.9 - Fever, unspecified Status: Acute Assessment and Plan: -T-max 39.2, took ibuprofen at home -Still 38.3 after a gram of Tylenol and IV ketorolac in ED no fever now -Tylenol ordered for fever (3) Pulmonary vascular congestion: Code(s): R09.89 - Other specified symptoms and signs involving the circulatory and respiratory systems Status: Acute Assessment and Plan: -CXR with significant findings of pulmonary vascular congestion and small pleural effusion -BNP 404 - give fluids sparingly (4) Metabolic acidosis: Code(s): E87.20 - Acidosis, unspecified Status: Acute Assessment and Plan: -Urine ketones noted with anion gap of 13 -Normal blood sugar -give fluids sparingly (5) Diabetes mellitus: Code(s): E11.9 - Type 2 diabetes mellitus without complications Status: Acute Assessment and Plan: -Previously very uncontrolled and led to left BKA -restart home insulin -Consider holding Farxiga/Jardiance if Beta-hydroxybutyrate is elevated (6) Hx of left BKA: Code(s): Z89.512 - Acquired absence of left leg below knee Status: Acute Assessment and Plan: -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 She reports feeling well earlier in the day and developed symptoms suddenly after supper. She was brought to the hospital by ambulance from her home in [place], as advised by EMS for proximity, as her usual [facility] facilities were further away. She has a history of chronic right leg wounds (requiring bandage changes three times weekly) and a left leg amputation two years ago at [facility]. She denies any history of Parkinson?s disease or multiple sclerosis but reports rhythmic arm shaking of unclear etiology, which is not associated with any massive disease. She has been noted to be dehydrated and has evidence of a urinary tract infection. Pt admitted for fever, pyelonephritis, acidosis ct shows - right hydroureteronephrosis. There is mild left hydroureteronephrosis. No obstructing stones are identified. There is a 3 mm nonobstructing left renal stone. urology consulted Review of Systems Review of Systems: Pt feels unwell sugars are running high ongoing R flank pains Exam Narrative: GENERAL: Obese, left BKA, wounds right leg chronic old wound ENT:? Mucous membranes dry despite drinking fluids well today CHEST: Clear to auscultation.? No respiratory distress. HEART: Regular rate and rhythm. ? Normal peripheral pulses. ABDOMEN: Soft, nontender, nondistended. EXTREMITIES: Left BKA, right leg with multiple chronic wounds, no drainage or erythema SKIN: Warm dry normal color NEURO: Alert and oriented x3. Bilateral upper extremity gross tremors which patient states is chronic PSYCH: Normal mood and affect Objective Data Vital Signs Vital Signs: Vital Signs - 24 hr 02/12/25 19:20 02/12/25 21:33 02/12/25 22:50 Temperature 38.4 C H 39.2 C H 38.3 C H Pulse Rate 99 78 Respiratory Rate 29 H 16 Blood Pressure 171/69 H 125/65 Pulse Oximetry 95 98 Oxygen Delivery Room Air 02/13/25 00:15 02/13/25 02:49 02/13/25 04:00 Temperature 36.8 C Pulse Rate 59 L 69 70 Respiratory Rate 24 H Blood Pressure 125/91 H Pulse Oximetry 94 Oxygen Delivery 02/13/25 06:00 02/13/25 08:00 02/13/25 08:35 Temperature 36.1 C L Pulse Rate 92 80 Respiratory Rate 24 H Blood Pressure 152/84 H Pulse Oximetry 100 Oxygen Delivery Room Air 02/13/25 12:00 02/13/25 12:13 Temperature Pulse Rate 71 Respiratory Rate Blood Pressure Pulse Oximetry 94 Oxygen Delivery Room Air Intake/Output Intake/Output: Intake & Output 02/10/25 02/11/25 02/12/25 02/13/25 23:59 23:59 23:59 23:59 Intake Total 240 Output Total 100 1500 Balance -100 -1260 Meds/Results Medications: Active Medications Generic Name Dose Route Start Last Admin Trade Name Freq PRN Reason Stop Dose Admin Acetaminophen 325 mg 02/13/25 14:00 Acetaminophen 325 Mg Tablet PO 0900,1400,2100 [facility] Amlodipine Besylate 10 mg 02/13/25 09:00 02/13/25 08:36 Amlodipine Besylate 10 Mg Tablet PO 10 mg DAILY [facility] Administration Aripiprazole 10 mg 02/13/25 09:00 02/13/25 08:36 Aripiprazole 10 Mg Tablet PO 10 mg DAILY [facility] Administration Aspirin 81 mg 02/14/25 09:00 Aspirin 81 Mg Enteric Tablet PO DAILY [facility] Atorvastatin Calcium 80 mg 02/13/25 09:00 02/13/25 08:36 Atorvastatin 40 Mg Tablet PO 80 mg DAILY [facility] Administration Baclofen 10 mg 02/13/25 00:47 Baclofen 10 Mg Tablet PO TID PRN muscle spasm Clopidogrel Bisulfate 75 mg 02/13/25 09:00 02/13/25 08:36 Clopidogrel Bisulfate 75 Mg Tablet PO 75 mg DAILY [facility] Administration Dextrose 12.5 gm 02/13/25 01:20 Dextrose 50% 25 Gm/50 Ml Syringe IV PUSH PRN PRN Hypoglycemia Protocol Duloxetine HCl 60 mg 02/13/25 09:00 02/13/25 08:36 Duloxetine Hcl 60 Mg Capsule.Dr PO 60 mg QAM [facility] Administration Ezetimibe 10 mg 02/13/25 09:00 02/13/25 08:36 Ezetimibe 10 Mg Tablet PO 10 mg DAILY [facility] Administration Empagliflozin 25 mg 02/13/25 09:00 Empagliflozin 25 Mg Tablet BY MOUTH DAILY [facility] Enoxaparin Sodium 40 mg 02/13/25 09:00 02/13/25 11:28 Enoxaparin 40 Mg/0.4 Ml Syringe SUB-Q Not Given Q12HR [facility] Gabapentin 300 mg 02/13/25 14:00 Gabapentin 300 Mg Capsule PO 0900,1400,2100 [facility] Glucagon 1 mg 02/13/25 01:20 Glucagon For Inj 1 Mg Vial IM PRN PRN Hypoglycemia Protocol Glucose 15 gm 02/13/25 01:20 Glucose Oral Gel 15 Gm Of Glucse In 37.5 Gm Tube PO PRN PRN Hypoglycemia Protocol Hydralazine HCl 50 mg 02/13/25 14:00 Hydralazine Hcl 50 Mg Tablet PO 0900,1400,2100 [facility] Levofloxacin/Dextrose 750 mg in 150 mls @ 100 mls/hr 02/13/25 21:00 Levaquin 750 Mg/D5w 150 Ml IVPB Q24H [facility] Dextrose 1,000 mls @ 100 mls/hr 02/13/25 01:20 Dextrose 5% 1,000 Ml IVPB PRN PRN Hypoglycemia Protocol Ibuprofen 400 mg 02/12/25 20:53 Ibuprofen 400 Mg Tablet PO Q6H PRN Mild Pain (1-3) or Fever Insulin Aspart 4 - 8 units 02/13/25 08:00 02/13/25 12:16 Insulin Aspart (*Bkc) 100 Units/Ml SUB-Q Not Given TIDWM [facility] Protocol Insulin Glargine 35 units 02/13/25 21:00 Insulin Glargine (*Bkc) 100 Units/Ml 0.25 units/kg (35 units) SUB-Q HS [facility] Lamotrigine 100 mg 02/13/25 21:00 Lamotrigine 100 Mg Tablet PO Q12HR [facility] Losartan Potassium 100 mg 02/14/25 09:00 Losartan Potassium 100 Mg Tablet PO DAILY [facility] Melatonin 5 mg 02/13/25 21:00 Melatonin 5 Mg Tablet PO HS [facility] Metoprolol Tartrate 50 mg 02/13/25 13:35 Metoprolol Tartrate 50 Mg Tab PO Q12H [facility] Non-Formulary Medication 20 unit 02/13/25 17:00 Insulin Aspart U-100 [Novolog Flexpen U-100 Insulin] SUB-Q 03/15/25 16:59 TIDWM [facility] Rivaroxaban 2.5 mg 02/13/25 13:35 Rivaroxaban 2.5 Mg Tablet PO Q12H [facility] Radiology Results: ITS Impressions Chest X-Ray 02/12/25 19:52 IMPRESSION: Mild pulmonary vascular congestion with a small left-sided pleural effusion. Abdomen/Pelvis CT 02/13/25 05:24 Impression: Bilateral hydroureteronephrosis, as detailed above, right worse than left, without obstructing stone or mass evident. 3 mm nonobstructing left renal stone. Labs Labs: Laboratory Results - last 24 hr 02/12/25 02/12/25 02/12/25 19:46 20:18 21:03 WBC 9.5 RBC 4.02 L Hgb 11.4 L Hct 35.5 L MCV 88.3 MCH 28.4 MCHC 32.1 RDW 14.5 Plt Count 111 L MPV 11.0 H Immature Gran % (Auto) 0.4 Neut % (Auto) 90.1 H Lymph % (Auto) 3.8 L [place] % (Auto) 4.0 Eos % (Auto) 1.3 Baso % (Auto) 0.4 Lymph # (Auto) 0.36 L [place] # (Auto) 0.4 Eos # (Auto) 0.1 Baso # (Auto) 0.0 Abs Immat Gran (auto) 0.04 H Absolute Neuts (auto) 8.6 H Absolute Nucleated RBC 0.000 Nucleated RBC % 0.0 % Immature Plt Fraction PT 14.8 H INR 1.2 APTT 22.9 Puncture Site Right radial ABG pH 7.439 ABG pCO2 29.3 L ABG pO2 70.9 L ABG PO2/FiO2 Ratio 3.38 ABG HCO3 19.4 L ABG O2 Saturation 95.1 ABG O2 Content 14.8 L ABG Base Excess -3.8 A-a Gradient 43.7 Oxyhemoglobin 93.0 Carboxyhemoglobin 0.7 Methemoglobin 0.3 Reduced Hemoglobin 6.0 H Total Hemoglobin 11.3 L O2 Delivery Device Not Reportable O2 Liters/Min Not Reportable FiO2 21 Sodium 137 Potassium 4.6 Chloride 106 Carbon Dioxide 18 L Anion Gap 13 H BUN 42 H Creatinine 0.96 Estim Creat Clear Calc 88 Estimated GFR 58 L Glucose 186 H POC Capillary Glucose Hemoglobin A1c 6.3 H Lactic Acid 1.3 Calcium 10.1 Magnesium Total Bilirubin 0.7 AST 69 H ALT 58 H Alkaline Phosphatase 124 C-Reactive Protein 2.3 H NT-Pro-B Natriuret Pep 404 H Total Protein 7.6 Albumin 4.1 Beta-Hydroxybutyrate/Acetoacetate Procalcitonin Urine Color Yellow Urine Appearance Cloudy H Urine pH 5.0 Ur Specific [place] 1.018 Urine Protein 2+ H Urine Glucose (UA) 3+ H Urine Ketones Negative Ur Blood (Man) Negative Urine Nitrate Positive H Urine Bilirubin Negative Urine Urobilinogen 0.2 Leukocyte Esterase Rfl 2+ H Urine RBC 0-2 Urine WBC 51-100 H Ur Squamous Epith Cells Occasional Urine Bacteria 4+ H Urine Casts 0-2 06/25/25 06/26/25 06/26/25 23:09 06:37 07:41 WBC 7.5 RBC 3.81 L Hgb 10.6 L Hct 34.2 L MCV 89.8 MCH 27.8 MCHC 31.0 L RDW 14.6 H Plt Count 74 L MPV 10.9 H Immature Gran % (Auto) 0.4 Neut % (Auto) 90.6 H Lymph % (Auto) 3.5 L [place] % (Auto) 5.2 Eos % (Auto) 0.0 Baso % (Auto) 0.3 Lymph # (Auto) 0.26 L [place] # (Auto) 0.4 Eos # (Auto) 0.0 Baso # (Auto) 0.0 Abs Immat Gran (auto) 0.03 Absolute Neuts (auto) 6.8 H Absolute Nucleated RBC 0.000 Nucleated RBC % 0.0 % Immature Plt Fraction 2.4 PT INR APTT Puncture Site ABG pH ABG pCO2 ABG pO2 ABG PO2/FiO2 Ratio ABG HCO3 ABG O2 Saturation ABG O2 Content ABG Base Excess A-a Gradient Oxyhemoglobin Carboxyhemoglobin Methemoglobin Reduced Hemoglobin Total Hemoglobin O2 Delivery Device O2 Liters/Min FiO2 Sodium 136 L Potassium 4.1 Chloride 105 Carbon Dioxide 19 L Anion Gap 12 BUN 37 H Creatinine 1.05 H Estim Creat Clear Calc 75 Estimated GFR 52 L Glucose 171 H POC Capillary Glucose 183 H 181 H Hemoglobin A1c Lactic Acid Calcium 9.9 Magnesium 1.9 Total Bilirubin 0.9 AST 188 H ALT 119 H Alkaline Phosphatase 140 H C-Reactive Protein NT-Pro-B Natriuret Pep Total Protein 7.1 Albumin 3.8 Beta-Hydroxybutyrate/Acetoacetate 0.65 H Procalcitonin Urine Color Urine Appearance Urine pH Ur Specific [place] Urine Protein Urine Glucose (UA) Urine Ketones Ur Blood (Man) Urine Nitrate Urine Bilirubin Urine Urobilinogen Leukocyte Esterase Rfl Urine RBC Urine WBC Ur Squamous Epith Cells Urine Bacteria Urine Casts 02/13/25 02/13/25 11:53 19:46 WBC RBC Hgb Hct MCV MCH MCHC RDW Plt Count MPV Immature Gran % (Auto) Neut % (Auto) Lymph % (Auto) [place] % (Auto) Eos % (Auto) Baso % (Auto) Lymph # (Auto) [place] # (Auto) Eos # (Auto) Baso # (Auto) Abs Immat Gran (auto) Absolute Neuts (auto) Absolute Nucleated RBC Nucleated RBC % % Immature Plt Fraction PT INR APTT Puncture Site ABG pH ABG pCO2 ABG pO2 ABG PO2/FiO2 Ratio ABG HCO3 ABG O2 Saturation ABG O2 Content ABG Base Excess A-a Gradient Oxyhemoglobin Carboxyhemoglobin Methemoglobin Reduced Hemoglobin Total Hemoglobin O2 Delivery Device O2 Liters/Min FiO2 Sodium Potassium Chloride Carbon Dioxide Anion Gap BUN Creatinine Estim Creat Clear Calc Estimated GFR Glucose POC Capillary Glucose 218 H Hemoglobin A1c Lactic Acid Calcium Magnesium Total Bilirubin AST ALT Alkaline Phosphatase C-Reactive Protein NT-Pro-B Natriuret Pep Total Protein Albumin Beta-Hydroxybutyrate/Acetoacetate Procalcitonin 0.6 Urine Color Urine Appearance Urine pH Ur Specific [place] Urine Protein Urine Glucose (UA) Urine Ketones Ur Blood (Man) Urine Nitrate Urine Bilirubin Urine Urobilinogen Leukocyte Esterase Rfl Urine RBC Urine WBC Ur Squamous Epith Cells Urine Bacteria Urine Casts
[2025-02-13] MEDS: GABAPENTIN 300 MG CAPSULE PO ×2 (14:39→21:00)
[2025-02-13] MEDS: BACLOFEN 10 MG TABLET PO ×2 (14:39→21:00)
[2025-02-13] MEDS: ACETAMINOPHEN 325 MG TABLET PO ×2 (14:41→21:00)
[2025-02-13 14:52] LABS: Hematocrit 29.8 % (37.0-47.0); Hemoglobin 9.4 g/dL (12.0-15.0); Immature Platelet Fraction Pct 2.5 % (0.9-11.2); Mean Corpuscular HGB Conc 31.5 g/dl (32-36); Mean Corpuscular Hemoglobin 28.3 pg (26-34); Mean Corpuscular Volume 89.8 fl (80-100); Platelet Count Result 67 k/mm3 (150-375); Red Blood Count 3.32 M/mm3 (4.2-5.4); White Blood Count 5.0 K/mm3 (4.5-10.0)
--- NOTE | 2025-02-13 15:15 | P.CONUR_ITS ---
Assessment and Plan Assessment and plan (1) Urinary retention: Code(s): R33.9 - Retention of urine, unspecified Status: Acute Plan 69y old with urinary retention in the setting of UTI -CT AP today reveals mild to moderate right hydroureteronephrosis. There is mild left hydroureteronephrosis. No obstructing stones are identified. There is a 3 mm nonobstructing left renal stone. Urinary bladder diffusely distended, but otherwise unremarkable. -UA was nitrate positive leukocyte esterase positive +4 bacteria and 50-100 white blood cells. Culture pending. agree with empiric antibiotics. Culture driven antibiotics when resulted. -maintain clemons. -repeat renal us monday -start tamsulosin 0.4mg daily Urology Consult Note HPI Date Seen: 02/13/25 Requesting Physician: Antione Deras MD Primary Care Provider: Soy Kelly, Consult Narrative Narrative: Cassi Yo is a 69 year old female with history of diabetes presents to the emergency department for evaluation for intermittent altered mental status. Patient does have a prior history of a left BKA and does have chronic wounds on her right lower extremity she is followed by wound care at [facility]. Patient has had worsening altered mental status fever for the past few days. Patient arrived to the emergency department by EMS. Patient's like complaint is that she feels shaky but patient family states that she does have a baseline tremor and this is unchanged than her baseline. Patient's temperature was 101.1? on arrival. Patient has no elevated leukocytosis and hemoglobin 11.4, INR is 1.2, patient does have a mildly elevated glucose 186 with an anion gap of 13 with normal kidney function, UA was nitrate positive leukocyte esterase positive +4 bacteria and 50-100 white blood cells, urine culture was ordered and patient was started on IV Levaquin due to her penicillin allergy. [facility] Surgical History Surgical History Hx of left BKA Family History Family History Father Acute myocardial infarction Mother Diabetes mellitus Social History Social History Smoking status: Light tobacco smoker Tobacco type: cigarettes Second hand tobacco smoke exposure: Yes Alcohol intake: current Drinks per week: 0 Substance use: never Substance use type: does not use Do You Feel Safe in your Home?: Yes Lack of Transportation: No Lack of Food: Never True Current Housing: I Have Housing Concerned About Future Housing: No Difficulty Paying Gas/Electric Bills: No Difficulty Paying for Meds: No Currently Unemployed: No Education: Decline to Answer Difficulty w/ Childcare or Family Care: No Spiritual care concerns: No Meds Home Medications and Allergies Home Medications ?Medication ?Instructions ?Recorded ?Confirmed ?Type acetaminophen 325 mg tablet 325 mg PO 0900,1400,209902/13/25 02/13/25 History amlodipine 10 mg tablet 10 mg PO DAILY 02/13/25 02/13/25 History aripiprazole 10 mg tablet 10 mg PO DAILY 02/13/25 02/13/25 History ascorbic acid (vitamin C) 500 mg 500 mg PO DAILY 02/13/25 02/13/25 History tablet (C-500) aspirin 81 mg tablet,delayed 81 mg PO DAILY 02/13/25 02/13/25 History release (Adult Low Dose Aspirin) atorvastatin 80 mg tablet 80 mg PO DAILY 02/13/25 02/13/25 History baclofen 10 mg tablet 10 mg PO TID PRN muscle spasm 02/13/25 02/13/25 History calcium carbonate (Super Calcium) 600 mg PO DAILY 02/13/25 02/13/25 History cholecalciferol (vitamin D3) 50 2,000 unit PO DAILY 02/13/25 02/13/25 History mcg (2,000 unit) capsule (Vitamin D3) clopidogrel 75 mg tablet 75 mg PO DAILY 02/13/25 02/13/25 History dapagliflozin propanediol 10 mg 10 mg PO DAILY 02/13/25 02/13/25 History tablet (Farxiga) duloxetine 60 mg capsule,delayed 60 mg PO QAM 02/13/25 02/13/25 History release ezetimibe 10 mg tablet 10 mg PO DAILY 02/13/25 02/13/25 History gabapentin 300 mg capsule 300 mg PO 0900,1400,209902/13/25 02/13/25 History hydralazine 50 mg tablet 50 mg PO 0900,1400,209902/13/25 02/13/25 History insulin aspart U-100 100 unit/mL 20 unit subcut TIDWM 02/13/25 02/13/25 History (3 mL) subcutaneous pen (Novolog FlexPen U-100 Insulin aspart) insulin glargine 100 45 unit subcut Q12H 02/13/25 02/13/25 History unit-lixisenatide 33 mcg/mL subcutaneous pen ([place] /) lamotrigine 100 mg tablet 100 mg PO Q12H 02/13/25 02/13/25 History losartan 100 mg tablet 100 mg PO DAILY 02/13/25 02/13/25 History melatonin 5 mg tablet 5 mg PO HS 02/13/25 02/13/25 History metoprolol tartrate 50 mg tablet 50 mg PO Q12H 02/13/25 02/13/25 History multivitamin (Daily Multi-Vitamin 1 tablet PO DAILY 02/13/25 02/13/25 History tablet) rivaroxaban 2.5 mg tablet (Xarelto) 2.5 mg PO Q12H 02/13/25 02/13/25 History Allergies Allergy/AdvReac Type Severity Reaction Status Date / Time latex Allergy Unknown Unknown Verified 02/12/25 22:38 Vital Signs Vital Signs - 24 hr 02/12/25 19:20 02/12/25 21:33 02/12/25 22:50 Temperature 101.1 F H 102.5 F H 101.0 F H Pulse Rate 99 78 Respiratory Rate 29 H 16 Blood Pressure 171/69 H 125/65 Pulse Oximetry 95 98 Oxygen Delivery Room Air 02/13/25 00:15 02/13/25 02:49 02/13/25 04:00 Temperature 98.3 F Pulse Rate 59 L 69 70 Respiratory Rate 24 H Blood Pressure 125/91 H Pulse Oximetry 94 Oxygen Delivery 02/13/25 06:00 02/13/25 08:00 02/13/25 08:35 Temperature 96.9 F L Pulse Rate 92 80 Respiratory Rate 24 H Blood Pressure 152/84 H Pulse Oximetry 100 Oxygen Delivery Room Air 02/13/25 12:00 02/13/25 12:13 Temperature Pulse Rate 71 Respiratory Rate Blood Pressure Pulse Oximetry 94 Oxygen Delivery Room Air Exam 2 Narrative: APPEARANCE: Ill-appearing HEAD: normocephalic, atraumatic. EYES: PERRLA/EOMI, conjunctivae clear. NOSE: Normal no drainage NECK: Supple. No adenopathy, no masses. RESPIRATORY: Airway patent, respirations nonlabored. ABDOMINAL: Soft, nontender, nondistended, normal bowel sounds MUSCULOSKELETAL: Moves all extremities. Strength/ROM intact, No edema, No R calf tenderness. LLE BKA. RLE has wounds NEURO: Alert. Cranial nerves II through XII intact. Grossly intact SKIN: Warm, dry. Normal Color Results Labs 02/13/25 14:17 02/13/25 06:37 Labs: Short CBC 02/12/25 02/13/25 02/13/25 Range/Units 19:46 06:37 14:17 WBC 9.5 7.5 5.0 (4.5-10.0) K/mm3 Hgb 11.4 L 10.6 L 9.4 L (12.0-15.0) g/dL Hct 35.5 L 34.2 L 29.8 L (37.0-47.0) % Plt Count 111 L 74 L 67 L (150-375) k/mm3 BMP 02/12/25 02/13/25 19:46 06:37 Sodium 137 136 L Potassium 4.6 4.1 Chloride 106 105 Carbon Dioxide 18 L 19 L BUN 42 H 37 H Creatinine 0.96 1.05 H Glucose 186 H 171 H Calcium 10.1 9.9 Liver Function 02/12/25 02/13/25 Range/Units 19:46 06:37 Total Bilirubin 0.7 0.9 (0.2-1.3) mg/dL AST 69 H 188 H (14-36) U/L ALT 58 H 119 H (6-35) U/L Alkaline Phosphatase 124 140 H (38-126) U/L Albumin 4.1 3.8 (3.5-5.1) g/dL Urine 02/12/25 Range/Units 20:18 Urine Color Yellow (Yellow) Urine Appearance Cloudy H (Clear) Urine pH 5.0 (5.0-9.0) Ur Specific [place] 1.018 (1.001-1.035) Urine Protein 2+ H (Negative) mg/dL Urine Glucose (UA) 3+ H (Negative) mg/dL
[2025-02-13 17:12] LABS: Anion Gap 8 mmol/L (4-12); Blood Urea Nitrogen 36 mg/dL (7-17); Calcium 9.3 mg/dL (8.4-10.2); Carbon Dioxide 19 mmol/L (22-30); Chloride 107 mmol/L (98-107); Estimated CRCL calculation 71 ml/min; Estimated Glomerular Filt Rate 49; Glucose 186 mg/dL (65-110); Potassium 4.0 mmol/L (3.4-5.0); Sodium 134 mmol/L (137-145)
[2025-02-13] MEDS: levoFLOXacin 750 MG/D5W 150 ML 750 MG/150 ML BAG 100 MG IVPB (20:59)
[2025-02-13] MEDS: INSULIN GLARGINE (*BKC) 100 UNITS/ML 35 UNITS SUB-Q (20:59)
[2025-02-13] MEDS: RIVAROXABAN 2.5 MG TABLET PO (21:00)
[2025-02-13] MEDS: MELATONIN 5 MG TABLET PO (21:00)
[2025-02-13] MEDS: METOPROLOL TARTRATE 50 MG TAB PO (21:00)
[2025-02-14] VITALS (13 sets, daily range): BP systolic 118–142; BP diastolic 49–79; PULSE 47–68; RESP 18–20; TEMP 36.1–36.8; O2SAT 94–98
--- NOTE | 2025-02-14 07:21 | P.PNUR_ITS ---
Progress Note: A&P Assessment and Plan (1) Urinary retention: Code(s): R33.9 - Retention of urine, unspecified Status: Acute Assessment and Plan: * Imaging/chart reviewed and discussed with our [employer], Frederick Marrero. * Scant hydronephrosis is likely clinically insignificant and related to incomplete bladder emptying. * Recommend tamsulosin to enhance bladder emptying and repeat ultrasound tomorrow with catheter drainage. * Regardless of ultrasound findings I think her catheter can come out tomorrow after the ultrasound with follow-up in 2-3 weeks to check response to tamsulosin Subjective Subjective Date/Time Seen: 02/14/25 07:21 Interval history: Tolerating [place] catheter well Review of Systems Review of Systems: All systems reviewed & are unremarkable except as noted in HPI and below Exam Const: General: no acute distress Resp: Effort & Inspection: normal respiratory effort GI: Inspection: non-distended GI Palp: No abdominal tenderness and No Guarding due to palpation present (GI) Auscultation: normal bowel sounds Urinary Catheter: Urinary Catheter: patent and draining and urine clear Objective Data Vital Signs Vital Signs: Vital Signs - 24 hr 02/13/25 08:00 02/13/25 08:35 02/13/25 12:00 Temperature Pulse Rate 80 71 Respiratory Rate Blood Pressure Pulse Oximetry Oxygen Delivery Room Air 02/13/25 12:13 02/13/25 14:00 02/13/25 16:00 Temperature 98.8 F Pulse Rate 71 74 Respiratory Rate 16 Blood Pressure 143/58 H Pulse Oximetry 94 95 Oxygen Delivery Room Air 02/13/25 20:00 02/13/25 20:00 02/13/25 21:00 Temperature Pulse Rate 72 71 72 Respiratory Rate 18 Blood Pressure Pulse Oximetry 95 Oxygen Delivery Room Air 02/13/25 21:06 02/13/25 23:21 02/14/25 00:00 Temperature 98.4 F Pulse Rate 72 60 Respiratory Rate 18 Blood Pressure 154/64 H Pulse Oximetry 95 95 Oxygen Delivery Room Air 02/14/25 04:00 02/14/25 05:40 Temperature 98.2 F Pulse Rate 53 L 60 Respiratory Rate 20 Blood Pressure 118/79 Pulse Oximetry 94 Oxygen Delivery Intake/Output Intake/Output: Intake & Output 02/11/25 02/12/25 02/13/25 02/14/25 23:59 23:59 23:59 23:59 Intake Total 870 500 Output Total 100 3400 950 Balance -100 -2530 -450 Meds/Results Medications: Active Medications Generic Name Dose Route Start Last Admin Trade Name Freq PRN Reason Stop Dose Admin Acetaminophen 325 mg 02/13/25 14:00 02/13/25 21:00 Acetaminophen 325 Mg Tablet PO 325 mg 0900,1400,2100 [facility] Administration Amlodipine Besylate 10 mg 02/13/25 09:00 02/13/25 08:36 Amlodipine Besylate 10 Mg Tablet PO 10 mg DAILY [facility] Administration Aripiprazole 10 mg 02/13/25 09:00 02/13/25 08:36 Aripiprazole 10 Mg Tablet PO 10 mg DAILY [facility] Administration Aspirin 81 mg 02/14/25 09:00 Aspirin 81 Mg Enteric Tablet PO DAILY [facility] Atorvastatin Calcium 80 mg 02/13/25 09:00 02/13/25 08:36 Atorvastatin 40 Mg Tablet PO 80 mg DAILY [facility] Administration Baclofen 10 mg 02/13/25 21:00 02/13/25 21:00 Baclofen 10 Mg Tablet PO 10 mg 0900,1400,2100 [facility] Administration Clopidogrel Bisulfate 75 mg 02/13/25 09:00 02/13/25 08:36 Clopidogrel Bisulfate 75 Mg Tablet PO 75 mg DAILY [facility] Administration Dextrose 12.5 gm 02/13/25 01:20 Dextrose 50% 25 Gm/50 Ml Syringe IV PUSH PRN PRN Hypoglycemia Protocol Duloxetine HCl 60 mg 02/13/25 09:00 02/13/25 08:36 Duloxetine Hcl 60 Mg Capsule.Dr PO 60 mg QAM [facility] Administration Ezetimibe 10 mg 02/13/25 09:00 02/13/25 08:36 Ezetimibe 10 Mg Tablet PO 10 mg DAILY [facility] Administration Empagliflozin 25 mg 02/13/25 09:00 Empagliflozin 25 Mg Tablet BY MOUTH DAILY [facility] Enoxaparin Sodium 40 mg 02/13/25 09:00 02/13/25 11:28 Enoxaparin 40 Mg/0.4 Ml Syringe SUB-Q Not Given Q12HR [facility] Gabapentin 300 mg 02/13/25 14:00 02/13/25 21:00 Gabapentin 300 Mg Capsule PO 300 mg 0900,1400,2100 [facility] Administration Glucagon 1 mg 02/13/25 01:20 Glucagon For Inj 1 Mg Vial IM PRN PRN Hypoglycemia Protocol Glucose 15 gm 02/13/25 01:20 Glucose Oral Gel 15 Gm Of Glucse In 37.5 Gm Tube PO PRN PRN Hypoglycemia Protocol Hydralazine HCl 50 mg 02/13/25 14:00 02/13/25 21:00 Hydralazine Hcl 50 Mg Tablet PO 50 mg 0900,1400,2100 [facility] Administration Levofloxacin/Dextrose 750 mg in 150 mls @ 100 mls/hr 02/13/25 21:00 02/13/25 22:29 Levaquin 750 Mg/D5w 150 Ml IVPB Infused Q24H [facility] Infusion Dextrose 1,000 mls @ 100 mls/hr 02/13/25 01:20 Dextrose 5% 1,000 Ml IVPB PRN PRN Hypoglycemia Protocol Ibuprofen 400 mg 02/12/25 20:53 Ibuprofen 400 Mg Tablet PO Q6H PRN Mild Pain (1-3) or Fever Insulin Aspart 20 units 02/13/25 17:00 02/13/25 17:46 Insulin Aspart (*Bkc) 100 Units/Ml SUB-Q 20 units TIDWM [facility] Administration Insulin Glargine 35 units 02/13/25 21:00 02/13/25 20:59 Insulin Glargine (*Bkc) 100 Units/Ml 0.25 units/kg (35 units) 35 units SUB-Q Administration HS [facility] Lamotrigine 100 mg 02/13/25 21:00 02/13/25 21:03 Lamotrigine 100 Mg Tablet PO 100 mg Q12HR [facility] Administration Losartan Potassium 100 mg 02/14/25 09:00 Losartan Potassium 100 Mg Tablet PO DAILY [facility] Melatonin 5 mg 02/13/25 21:00 02/13/25 21:00 Melatonin 5 Mg Tablet PO 5 mg HS [facility] Administration Metoprolol Tartrate 50 mg 02/13/25 21:00 02/13/25 21:00 Metoprolol Tartrate 50 Mg Tab PO 50 mg Q12HR [facility] Administration Rivaroxaban 2.5 mg 02/13/25 21:00 02/13/25 21:00 Rivaroxaban 2.5 Mg Tablet PO 2.5 mg Q12HR [facility] Administration Radiology Results: ITS Impressions Chest X-Ray 02/12/25 19:52 IMPRESSION: Mild pulmonary vascular congestion with a small left-sided pleural effusion. Abdomen/Pelvis CT 02/13/25 05:24 Impression: Bilateral hydroureteronephrosis, as detailed above, right worse than left, without obstructing stone or mass evident. 3 mm nonobstructing left renal stone. Renal Ultrasound 02/13/25 16:16 IMPRESSION: 1. Normal kidneys without hydronephrosis. Labs Labs: Laboratory Results - last 24 hr 02/13/25 02/13/25 02/13/25 06:37 07:41 11:53 WBC 7.5 RBC 3.81 L Hgb 10.6 L Hct 34.2 L MCV 89.8 MCH 27.8 MCHC 31.0 L RDW 14.6 H Plt Count 74 L MPV 10.9 H Immature Gran % (Auto) 0.4 Neut % (Auto) 90.6 H Lymph % (Auto) 3.5 L [place] % (Auto) 5.2 Eos % (Auto) 0.0 Baso % (Auto) 0.3 Lymph # (Auto) 0.26 L [place] # (Auto) 0.4 Eos # (Auto) 0.0 Baso # (Auto) 0.0 Abs Immat Gran (auto) 0.03 Absolute Neuts (auto) 6.8 H Absolute Nucleated RBC 0.000 Nucleated RBC % 0.0 % Immature Plt Fraction 2.4 Sodium 136 L Potassium 4.1 Chloride 105 Carbon Dioxide 19 L Anion Gap 12 BUN 37 H Creatinine 1.05 H Estim Creat Clear Calc 75 Estimated GFR 52 L Glucose 171 H POC Capillary Glucose 181 H 218 H Calcium 9.9 Magnesium 1.9 Total Bilirubin 0.9 AST 188 H ALT 119 H Alkaline Phosphatase 140 H Total Protein 7.1 Albumin 3.8 Beta-Hydroxybutyrate/Acetoacetate 0.65 H 02/13/25 02/13/25 02/13/25 14:17 17:01 19:24 WBC 5.0 RBC 3.32 L Hgb 9.4 L Hct 29.8 L MCV 89.8 MCH 28.3 MCHC 31.5 L RDW 14.7 H Plt Count 67 L MPV 11.0 H Immature Gran % (Auto) Neut % (Auto) Lymph % (Auto) [place] % (Auto) Eos % (Auto) Baso % (Auto) Lymph # (Auto) [place] # (Auto) Eos # (Auto) Baso # (Auto) Abs Immat Gran (auto) Absolute Neuts (auto) Absolute Nucleated RBC Nucleated RBC % % Immature Plt Fraction 2.5 Sodium 134 L Potassium 4.0 Chloride 107 Carbon Dioxide 19 L Anion Gap 8 BUN 36 H Creatinine 1.12 H Estim Creat Clear Calc 71 Estimated GFR 49 L Glucose 186 H POC Capillary Glucose 190 H 212 H Calcium 9.3 Magnesium Total Bilirubin AST ALT Alkaline Phosphatase Total Protein Albumin Beta-Hydroxybutyrate/Acetoacetate
[2025-02-14 08:18] LABS: Hematocrit 31.0 % (37.0-47.0); Hemoglobin 9.7 g/dL (12.0-15.0); Immature Granulocyte Percent A 0.6 % (0-0.5); Immature Platelet Fraction Pct 3.5 % (0.9-11.2); Lymphocytes Absolute Auto 0.58 K/mm3 (0.9-3.2); Mean Corpuscular HGB Conc 31.3 g/dl (32-36); Mean Corpuscular Hemoglobin 28.0 pg (26-34); Mean Corpuscular Volume 89.3 fl (80-100); Nucleated Red Blood Cells Absolute Auto 0.000 K/mm3 (0.0-0.012); Nucleated Red Blood Cells Perc 0.0 % (0.0-0.2); Platelet Count Result 62 k/mm3 (150-375); Red Blood Count 3.47 M/mm3 (4.2-5.4); White Blood Count 3.1 K/mm3 (4.5-10.0)
[2025-02-14 08:54] LABS: Alanine Aminotransferase 171 U/L (6-35); Albumin Level 3.0 g/dL (3.5-5.1); Alkaline Phosphatase 156 U/L (38-126); Anion Gap 8 mmol/L (4-12); Aspartate Amino Transferase 174 U/L (14-36); Bilirubin,Total 0.7 mg/dL (0.2-1.3); Blood Urea Nitrogen 33 mg/dL (7-17); Calcium 9.2 mg/dL (8.4-10.2); Carbon Dioxide 20 mmol/L (22-30); Chloride 106 mmol/L (98-107); Estimated CRCL calculation 68 ml/min; Estimated Glomerular Filt Rate 46; Glucose 144 mg/dL (65-110); Magnesium 2.0 mg/dL (1.6-2.3); Potassium 3.9 mmol/L (3.4-5.0); Sodium 134 mmol/L (137-145); Total Protein 6.0 g/dL (6.3-8.2)
[2025-02-14] MEDS: METOPROLOL TARTRATE 50 MG TAB PO ×2 (08:54→21:24)
[2025-02-14] MEDS: ATORVASTATIN 40 MG TABLET 80 MG PO (08:54)
[2025-02-14] MEDS: DULoxetine HCL 60 MG CAPSULE.DR PO (08:55)
[2025-02-14] MEDS: EZETIMIBE 10 MG TABLET PO (08:55)
[2025-02-14] MEDS: ASPIRIN 81 MG ENTERIC TABLET PO (08:55)
[2025-02-14] MEDS: LOSARTAN POTASSIUM 100 MG TABLET PO (08:55)
[2025-02-14] MEDS: BACLOFEN 10 MG TABLET PO ×3 (09:00→21:27)
[2025-02-14] MEDS: ACETAMINOPHEN 325 MG TABLET PO ×3 (09:00→21:21)
[2025-02-14] MEDS: GABAPENTIN 300 MG CAPSULE PO ×3 (09:00→21:21)
[2025-02-14] MEDS: INSULIN ASPART (*BKC) 100 UNITS/ML 20 UNITS SUB-Q ×3 (09:03→17:13)
[2025-02-14 09:27] LABS: Schistocytes None Seen
[2025-02-14] MEDS: CLOPIDOGREL BISULFATE 75 MG TABLET PO (09:49)
[2025-02-14] MEDS: SENNA/DOCUSATE SODIUM TABLET 2 TAB PO ×2 (09:49→17:13)
--- NOTE | 2025-02-14 13:41 | P.PNIM_ITS ---
Progress Note: A&P Assessment and Plan (1) Pyelonephritis: Code(s): N12 - Tubulo-interstitial nephritis, not specified as acute or chronic Status: Acute Assessment and Plan: Pyelonephritis Presented with fever, altered mental status -pt has clemons cath in situ -prior history of requiring straight catheterization for urinary retention - consult urology on levaquin Urine culture is content admitted Blood culture grows E coli (2) Fever: Code(s): R50.9 - Fever, unspecified Status: Acute Assessment and Plan: Resulting from pyelonephritis Urine culture grows mixed genital michelle Blood culture grows E coli (3) Pulmonary vascular congestion: Code(s): R09.89 - Other specified symptoms and signs involving the circulatory and respiratory systems Status: Acute Assessment and Plan: -CXR with significant findings of pulmonary vascular congestion and small pleural effusion -BNP 404 - give fluids sparingly (4) Metabolic acidosis: Code(s): E87.20 - Acidosis, unspecified Status: Acute Assessment and Plan: -Urine ketones noted with anion gap of 13 -Normal blood sugar -give fluids sparingly (5) Diabetes mellitus: Code(s): E11.9 - Type 2 diabetes mellitus without complications Status: Acute Assessment and Plan: -Previously very uncontrolled and led to left BKA -restart home insulin -Consider holding Farxiga/Jardiance if Beta-hydroxybutyrate is elevated (6) Hx of left BKA: Code(s): Z89.512 - Acquired absence of left leg below knee Status: Acute Assessment and Plan: -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 diabetes -Chronic wounds present on right lower extremity, follows with [facility] wound care Plan Urine retention Scant hydronephrosis Continue tamsulosin Urologist recommend ultrasound tomorrow with folic catheter drainage bipolar - on aripiprazole HTN - on norvasc PAD- on plavix chronic pain - on baclofen BKA clean stump Subjective Date/time seen: 02/14/25 13:41 Interval history: Patient is afebrile over night, blood pressure stable Labs showed leukopenia white blood cells 3100 Chemistry showed hyponatremia, elevated BUN creatinine ratio 33/1.17 Exam Narrative: GENERAL: Obese, left BKA, wounds right leg chronic old wound ENT:? Mucous membranes dry despite drinking fluids well today CHEST: Clear to auscultation.? No respiratory distress. HEART: Regular rate and rhythm. ? Normal peripheral pulses. ABDOMEN: Soft, nontender, nondistended. EXTREMITIES: Left BKA, right leg with multiple chronic wounds, no drainage or erythema SKIN: Warm dry normal color NEURO: Alert and oriented x3. Bilateral upper extremity gross tremors which patient states is chronic PSYCH: Normal mood and affect Objective Data Vital Signs Vital Signs: Vital Signs - 24 hr 02/13/25 14:00 02/13/25 16:00 02/13/25 20:00 Temperature 98.8 F Pulse Rate 71 74 72 Respiratory Rate 16 18 Blood Pressure 143/58 H Pulse Oximetry 95 95 Oxygen Delivery Room Air 02/13/25 20:00 02/13/25 21:00 02/13/25 21:06 Temperature 98.4 F Pulse Rate 71 72 72 Respiratory Rate 18 Blood Pressure 154/64 H Pulse Oximetry 95 Oxygen Delivery 02/13/25 23:21 02/14/25 00:00 02/14/25 04:00 Temperature Pulse Rate 60 53 L Respiratory Rate Blood Pressure Pulse Oximetry 95 Oxygen Delivery Room Air 02/14/25 05:40 02/14/25 08:00 02/14/25 08:54 Temperature 98.2 F Pulse Rate 60 62 60 Respiratory Rate 20 Blood Pressure 118/79 Pulse Oximetry 94 Oxygen Delivery 02/14/25 09:00 02/14/25 12:00 Temperature Pulse Rate 60 61 Respiratory Rate 20 Blood Pressure Pulse Oximetry 94 Oxygen Delivery Room Air Intake/Output Intake/Output: Intake & Output 02/11/25 02/12/25 02/13/25 02/14/25 23:59 23:59 23:59 23:59 Intake Total 870 680 Output Total 100 3400 950 Balance -100 -2530 -270 Meds/Results Medications: Active Medications Generic Name Dose Route Start Last Admin Trade Name Freq PRN Reason Stop Dose Admin Acetaminophen 325 mg 02/13/25 14:00 02/14/25 09:00 Acetaminophen 325 Mg Tablet PO 325 mg 0900,1400,2100 [facility] Administration Amlodipine Besylate 10 mg 02/13/25 09:00 02/14/25 08:55 Amlodipine Besylate 10 Mg Tablet PO 10 mg DAILY [facility] Administration Aripiprazole 10 mg 02/13/25 09:00 02/14/25 08:54 Aripiprazole 10 Mg Tablet PO 10 mg DAILY [facility] Administration Aspirin 81 mg 02/14/25 09:00 02/14/25 08:55 Aspirin 81 Mg Enteric Tablet PO 81 mg DAILY [facility] Administration Atorvastatin Calcium 80 mg 02/13/25 09:00 02/14/25 08:54 Atorvastatin 40 Mg Tablet PO 80 mg DAILY [facility] Administration Baclofen 10 mg 02/13/25 21:00 02/14/25 09:00 Baclofen 10 Mg Tablet PO 10 mg 0900,1400,2100 [facility] Administration Clopidogrel Bisulfate 75 mg 02/13/25 09:00 02/14/25 09:49 Clopidogrel Bisulfate 75 Mg Tablet PO 75 mg DAILY [facility] Administration Dextrose 12.5 gm 02/13/25 01:20 Dextrose 50% 25 Gm/50 Ml Syringe IV PUSH PRN PRN Hypoglycemia Protocol Duloxetine HCl 60 mg 02/13/25 09:00 02/14/25 08:55 Duloxetine Hcl 60 Mg Capsule.Dr PO 60 mg QAM [facility] Administration Ezetimibe 10 mg 02/13/25 09:00 02/14/25 08:55 Ezetimibe 10 Mg Tablet PO 10 mg DAILY [facility] Administration Empagliflozin 25 mg 02/13/25 09:00 Empagliflozin 25 Mg Tablet BY MOUTH DAILY [facility] Enoxaparin Sodium 40 mg 02/13/25 09:00 02/14/25 09:01 Enoxaparin 40 Mg/0.4 Ml Syringe SUB-Q Not Given Q12HR [facility] Gabapentin 300 mg 02/13/25 14:00 02/14/25 09:00 Gabapentin 300 Mg Capsule PO 300 mg 0900,1400,2100 [facility] Administration Glucagon 1 mg 02/13/25 01:20 Glucagon For Inj 1 Mg Vial IM PRN PRN Hypoglycemia Protocol Glucose 15 gm 02/13/25 01:20 Glucose Oral Gel 15 Gm Of Glucse In 37.5 Gm Tube PO PRN PRN Hypoglycemia Protocol Hydralazine HCl 50 mg 02/13/25 14:00 02/14/25 09:00 Hydralazine Hcl 50 Mg Tablet PO 50 mg 0900,1400,2100 [facility] Administration Levofloxacin/Dextrose 750 mg in 150 mls @ 100 mls/hr 02/13/25 21:00 02/13/25 22:29 Levaquin 750 Mg/D5w 150 Ml IVPB Infused Q24H [facility] Infusion Dextrose 1,000 mls @ 100 mls/hr 02/13/25 01:20 Dextrose 5% 1,000 Ml IVPB PRN PRN Hypoglycemia Protocol Ibuprofen 400 mg 02/12/25 20:53 Ibuprofen 400 Mg Tablet PO Q6H PRN Mild Pain (1-3) or Fever Insulin Aspart 20 units 02/13/25 17:00 02/14/25 11:57 Insulin Aspart (*Bkc) 100 Units/Ml SUB-Q 20 units TIDWM [facility] Administration Insulin Glargine 35 units 02/13/25 21:00 02/13/25 20:59 Insulin Glargine (*Bkc) 100 Units/Ml 0.25 units/kg (35 units) 35 units SUB-Q Administration HS [facility] Lamotrigine 100 mg 02/13/25 21:00 02/14/25 08:55 Lamotrigine 100 Mg Tablet PO 100 mg Q12HR [facility] Administration Losartan Potassium 100 mg 02/14/25 09:00 02/14/25 08:55 Losartan Potassium 100 Mg Tablet PO 100 mg DAILY [facility] Administration Melatonin 5 mg 02/13/25 21:00 02/13/25 21:00 Melatonin 5 Mg Tablet PO 5 mg HS [facility] Administration Metoprolol Tartrate 50 mg 02/13/25 21:00 02/14/25 08:54 Metoprolol Tartrate 50 Mg Tab PO 50 mg Q12HR [facility] Administration Rivaroxaban 2.5 mg 02/13/25 21:00 02/14/25 09:49 Rivaroxaban 2.5 Mg Tablet PO Not Given Q12HR [facility] Senna/Docusate Sodium 2 tab 02/14/25 09:40 02/14/25 09:49 Senna/Docusate Sodium Tablet PO 2 tab BID [facility] Administration Radiology Results: ITS Impressions Chest X-Ray 02/12/25 19:52 IMPRESSION: Mild pulmonary vascular congestion with a small left-sided pleural effusion. Abdomen/Pelvis CT 02/13/25 05:24 Impression: Bilateral hydroureteronephrosis, as detailed above, right worse than left, without obstructing stone or mass evident. 3 mm nonobstructing left renal stone. Renal Ultrasound 02/13/25 16:16 IMPRESSION: 1. Normal kidneys without hydronephrosis. Labs Labs: Laboratory Results - last 24 hr 02/13/25 02/13/25 02/13/25 14:17 17:01 19:24 WBC 5.0 RBC 3.32 L Hgb 9.4 L Hct 29.8 L MCV 89.8 MCH 28.3 MCHC 31.5 L RDW 14.7 H Plt Count 67 L MPV 11.0 H Immature Gran % (Auto) Neut % (Auto) Lymph % (Auto) [place] % (Auto) Eos % (Auto) Baso % (Auto) Lymph # (Auto) [place] # (Auto) Eos # (Auto) Baso # (Auto) Abs Immat Gran (auto) Absolute Neuts (auto) Absolute Nucleated RBC Band Neutrophils % Nucleated RBC % Atypical Lymphocytes Platelet Estimate % Immature Plt Fraction 2.5 Schistocytes Sodium 134 L Potassium 4.0 Chloride 107 Carbon Dioxide 19 L Anion Gap 8 BUN 36 H Creatinine 1.12 H Estim Creat Clear Calc 71 Estimated GFR 49 L Glucose 186 H POC Capillary Glucose 190 H 212 H Calcium 9.3 Magnesium Total Bilirubin AST ALT Alkaline Phosphatase Total Protein Albumin 02/14/25 02/14/25 02/14/25 07:38 08:06 11:36 WBC 3.1 L RBC 3.47 L Hgb 9.7 L Hct 31.0 L MCV 89.3 MCH 28.0 MCHC 31.3 L RDW 14.8 H Plt Count 62 L MPV 11.2 H Immature Gran % (Auto) 0.6 H Neut % (Auto) 66.0 Lymph % (Auto) 18.6 [place] % (Auto) 13.5 H Eos % (Auto) 0.3 Baso % (Auto) 1.0 Lymph # (Auto) 0.58 L [place] # (Auto) 0.4 Eos # (Auto) 0.0 Baso # (Auto) 0.0 Abs Immat Gran (auto) 0.02 Absolute Neuts (auto) 2.1 Absolute Nucleated RBC 0.000 Band Neutrophils % Not Reportable Nucleated RBC % 0.0 Atypical Lymphocytes Present Platelet Estimate Decreased % Immature Plt Fraction 3.5 Schistocytes None seen Sodium 134 L Potassium 3.9 Chloride 106 Carbon Dioxide 20 L Anion Gap 8 BUN 33 H Creatinine 1.17 H Estim Creat Clear Calc 68 Estimated GFR 46 L Glucose 144 H POC Capillary Glucose 154 H 172 H Calcium 9.2 Magnesium 2.0 Total Bilirubin 0.7 AST 174 H ALT 171 H Alkaline Phosphatase 156 H Total Protein 6.0 L Albumin 3.0 L
[2025-02-14] MEDS: levoFLOXacin 750 MG/D5W 150 ML 750 MG/150 ML BAG 100 MG IVPB (21:19)
[2025-02-14] MEDS: MELATONIN 5 MG TABLET PO (21:21)
[2025-02-14] MEDS: RIVAROXABAN 2.5 MG TABLET PO (21:22)
[2025-02-14] MEDS: INSULIN GLARGINE (*BKC) 100 UNITS/ML 35 UNITS SUB-Q (21:34)
--- NOTE | 2025-02-14 23:43 | PC.NURSE ---
Hydralazine held due to patient sinus bradycardia mid-low 50's. When sleeping, heart rate ranges in 40's. Patient denies chest pain, light head, or dizziness. Yadi Kirk, notified change in patient heart rate. No new orders given, continue to monitor progress.
[2025-02-15] VITALS (12 sets, daily range): BP systolic 119–148; BP diastolic 40–52; PULSE 41–55; RESP 16–20; TEMP 35.7–36.6; O2SAT 95–100
--- NOTE | 2025-02-15 00:24 | ECG_ITS ---
Test Date: 2025-02-15 05:12:22 Measurements Intervals [place] Rate: 46 P: 0 SD: 0 QRS: -25 QRSD: 114 T: -39 QT: 497 QTc: 436 Interpretive Statements SINUS OR ECTOPIC ATRIAL BRADYCARDIA INCOMPLETE LEFT BUNDLE BRANCH BLOCK BORDERLINE R WAVE PROGRESSION, ANTERIOR LEADS LEFT VENTRICULAR HYPERTROPHY ST-T WAVE ABNORMALITY IN ANTEROLAT/INF LEADS- CONSIDER ISCHEMIA BASELINE ARTIFACT- I, II, AVR, AVL, AVF, V1-V6 ABNORMAL ECG Compared to ECG 02/12/2025 19:29:08 HEART RATE HAS DECREAED T-wave abnormality now present Possible ischemia now present Electronically Signed On 02-15-2025 07:16:23 CDT by Homer Patrick D.O.
--- NOTE | 2025-02-15 00:31 | PC.NURSE ---
Patient bradycardic on telemtry monitor lowest 39 bpm. Amaya Dobbs, notified patient status change in heart rate. Orders for EKG, continue to monitor progress. Patient asleep without chest pain or dizziness.
[2025-02-15 06:49] LABS: Hematocrit 31.8 % (37.0-47.0); Hemoglobin 9.9 g/dL (12.0-15.0); Immature Granulocyte Percent A 0.5 % (0-0.5); Immature Platelet Fraction Pct 4.2 % (0.9-11.2); Lymphocytes Absolute Auto 0.82 K/mm3 (0.9-3.2); Mean Corpuscular HGB Conc 31.1 g/dl (32-36); Mean Corpuscular Hemoglobin 28.0 pg (26-34); Mean Corpuscular Volume 89.8 fl (80-100); Nucleated Red Blood Cells Absolute Auto 0.000 K/mm3 (0.0-0.012); Nucleated Red Blood Cells Perc 0.0 % (0.0-0.2); Platelet Count Result 61 k/mm3 (150-375); Red Blood Count 3.54 M/mm3 (4.2-5.4); White Blood Count 3.9 K/mm3 (4.5-10.0)
[2025-02-15 07:05] LABS: Alanine Aminotransferase 125 U/L (6-35); Albumin Level 2.9 g/dL (3.5-5.1); Alkaline Phosphatase 143 U/L (38-126); Anion Gap 7 mmol/L (4-12); Aspartate Amino Transferase 93 U/L (14-36); Bilirubin,Total 0.3 mg/dL (0.2-1.3); Blood Urea Nitrogen 35 mg/dL (7-17); Calcium 9.2 mg/dL (8.4-10.2); Carbon Dioxide 20 mmol/L (22-30); Chloride 110 mmol/L (98-107); Estimated CRCL calculation 67 ml/min; Estimated Glomerular Filt Rate 46; Glucose 167 mg/dL (65-110); Magnesium 2.2 mg/dL (1.6-2.3); Potassium 4.1 mmol/L (3.4-5.0); Sodium 137 mmol/L (137-145); Total Protein 5.9 g/dL (6.3-8.2)
[2025-02-15 08:11] LABS: Anisocytosis 1+; Schistocytes None Seen; Smudge Cells FEW
[2025-02-15] MEDS: ATORVASTATIN 40 MG TABLET 80 MG PO (09:48)
[2025-02-15] MEDS: ASPIRIN 81 MG ENTERIC TABLET PO (09:48)
[2025-02-15] MEDS: SENNA/DOCUSATE SODIUM TABLET 2 TAB PO ×2 (09:49→17:20)
[2025-02-15] MEDS: METOPROLOL TARTRATE 50 MG TAB PO (09:49)
[2025-02-15] MEDS: LOSARTAN POTASSIUM 100 MG TABLET PO (09:50)
[2025-02-15] MEDS: EZETIMIBE 10 MG TABLET PO (09:50)
[2025-02-15] MEDS: DULoxetine HCL 60 MG CAPSULE.DR PO (09:50)
[2025-02-15] MEDS: INSULIN ASPART (*BKC) 100 UNITS/ML 20 UNITS SUB-Q ×3 (09:51→17:21)
--- NOTE | 2025-02-15 09:58 | P.PNIM_ITS ---
Progress Note: A&P Assessment and Plan (1) Fever: Code(s): R50.9 - Fever, unspecified Status: Acute Assessment and Plan: Resulting from pyelonephritis Urine culture grows mixed genital michelle Blood culture grows E coli Continue IV antibiotics. (2) Pulmonary vascular congestion: Code(s): R09.89 - Other specified symptoms and signs involving the circulatory and respiratory systems Status: Acute Assessment and Plan: -CXR with significant findings of pulmonary vascular congestion and small pleural effusion -BNP 404 - give fluids sparingly (3) Metabolic acidosis: Code(s): E87.20 - Acidosis, unspecified Status: Acute Assessment and Plan: -Urine ketones noted with anion gap of 13 -Normal blood sugar -give fluids sparingly (4) Diabetes mellitus: Code(s): E11.9 - Type 2 diabetes mellitus without complications Status: Acute Assessment and Plan: -Previously very uncontrolled and led to left BKA -restart home insulin -Consider holding Farxiga/Jardiance if Beta-hydroxybutyrate is elevated (5) Hx of left BKA: Code(s): Z89.512 - Acquired absence of left leg below knee Status: Acute Assessment and Plan: -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 diabetes -Chronic wounds present on right lower extremity, follows [facility] (6) Pancytopenia: Code(s): D61.818 - Other pancytopenia Status: Acute Assessment and Plan: Will hold anticoagulation for now. Consult Hematology-Oncology. Plan Urine retention Scant hydronephrosis Continue tamsulosin Urologist recommend ultrasound tomorrow with folic catheter drainage bipolar - on aripiprazole HTN - on norvasc PAD- on plavix chronic pain - on baclofen BKA clean stump Subjective Date/time seen: 02/15/25 09:58 Interval history: Pyelonephritis Diabetes Electrolyte imbalance Patient was seen during the morning rounds today. Patient is feeling slightly better. Decreased pain. No fever. No abdominal pain, nausea, no vomiting. No shortness of breath or chest pain Review of Systems Review of Systems: Pt feels unwell sugars are running high ongoing R flank pains All systems reviewed & are unremarkable except as noted in HPI and below Exam Narrative: GENERAL: Obese, left BKA, wounds right leg chronic old wound ENT:? Mucous membranes dry despite drinking fluids well today CHEST: Clear to auscultation.? No respiratory distress. HEART: Regular rate and rhythm. ? Normal peripheral pulses. ABDOMEN: Soft, nontender, nondistended. EXTREMITIES: Left BKA, right leg with multiple chronic wounds, no drainage or erythema SKIN: Warm dry normal color NEURO: Alert and oriented x3. Bilateral upper extremity gross tremors which patient states is chronic PSYCH: Normal mood and affect Objective Data Vital Signs Vital Signs: Vital Signs - 24 hr 02/14/25 12:00 02/14/25 14:00 02/14/25 16:00 Temperature 36.8 C Pulse Rate 61 68 54 L Respiratory Rate 18 Blood Pressure 142/49 H Pulse Oximetry 96 Oxygen Delivery 02/14/25 20:00 02/14/25 21:21 02/14/25 21:24 Temperature Pulse Rate 47 L 52 L 53 L Respiratory Rate 18 Blood Pressure Pulse Oximetry 98 Oxygen Delivery Room Air 02/14/25 22:00 02/15/25 00:05 02/15/25 04:01 Temperature 36.1 C L Pulse Rate 52 L 41 L 50 L Respiratory Rate 18 Blood Pressure 137/51 L Pulse Oximetry 98 Oxygen Delivery 02/15/25 06:00 02/15/25 08:33 02/15/25 09:49 Temperature 36.3 C L 35.7 C L Pulse Rate 47 L 51 L 51 L Respiratory Rate 18 16 Blood Pressure 123/52 L 131/49 L Pulse Oximetry 100 95 Oxygen Delivery Intake/Output Intake/Output: Intake & Output 02/12/25 02/13/25 02/14/25 02/15/25 23:59 23:59 23:59 23:59 Intake Total 870 1190 380 Output Total 100 3400 2075 1400 Balance -100 -2530 -885 -1020 Meds/Results Medications: Active Medications Generic Name Dose Route Start Last Admin Trade Name Freq PRN Reason Stop Dose Admin Acetaminophen 325 mg 02/13/25 14:00 02/14/25 21:21 Acetaminophen 325 Mg Tablet PO 325 mg 0900,1400,2100 FARHANA Administration Amlodipine Besylate 10 mg 02/13/25 09:00 02/15/25 09:48 Amlodipine Besylate 10 Mg Tablet PO 10 mg DAILY FARHANA Administration Aripiprazole 10 mg 02/13/25 09:00 02/15/25 09:48 Aripiprazole 10 Mg Tablet PO 10 mg DAILY FARHANA Administration Aspirin 81 mg 02/14/25 09:00 02/15/25 09:48 Aspirin 81 Mg Enteric Tablet PO 81 mg DAILY FARHANA Administration Atorvastatin Calcium 80 mg 02/13/25 09:00 02/15/25 09:48 Atorvastatin 40 Mg Tablet PO 80 mg DAILY FARHANA Administration Baclofen 10 mg 02/13/25 21:00 02/14/25 21:27 Baclofen 10 Mg Tablet PO 10 mg 0900,1400,2100 FARHANA Administration Clopidogrel Bisulfate 75 mg 02/13/25 09:00 02/14/25 09:49 Clopidogrel Bisulfate 75 Mg Tablet PO 75 mg DAILY FARHANA Administration Dextrose 12.5 gm 02/13/25 01:20 Dextrose 50% 25 Gm/50 Ml Syringe IV PUSH PRN PRN Hypoglycemia Protocol Duloxetine HCl 60 mg 02/13/25 09:00 02/15/25 09:50 Duloxetine Hcl 60 Mg Capsule. PO 60 mg QAM FARHANA Administration Ezetimibe 10 mg 02/13/25 09:00 02/15/25 09:50 Ezetimibe 10 Mg Tablet PO 10 mg DAILY FARHANA Administration Empagliflozin 25 mg 02/13/25 09:00 Empagliflozin 25 Mg Tablet BY MOUTH DAILY [facility] Enoxaparin Sodium 40 mg 02/13/25 09:00 02/14/25 09:01 Enoxaparin 40 Mg/0.4 Ml Syringe SUB-Q Not Given Q12HR [facility] Gabapentin 300 mg 02/13/25 14:00 02/14/25 21:21 Gabapentin 300 Mg Capsule PO 300 mg 0900,1400,2099 [facility] Administration Glucagon 1 mg 02/13/25 01:20 Glucagon For Inj 1 Mg Vial IM PRN PRN Hypoglycemia Protocol Glucose 15 gm 02/13/25 01:20 Glucose Oral Gel 15 Gm Of Glucse In 37.5 Gm Tube PO PRN PRN Hypoglycemia Protocol Hydralazine HCl 50 mg 02/13/25 14:00 02/14/25 21:30 Hydralazine Hcl 50 Mg Tablet PO Not Given 0900,1400,2100 [facility] Levofloxacin/Dextrose 750 mg in 150 mls @ 100 mls/hr 02/13/25 21:00 02/14/25 22:49 Levaquin 750 Mg/D5w 150 Ml IVPB Infused Q24H FARHANA Infusion Dextrose 1,000 mls @ 100 mls/hr 02/13/25 01:20 Dextrose 5% 1,000 Ml IVPB PRN PRN Hypoglycemia Protocol Ibuprofen 400 mg 02/12/25 20:53 Ibuprofen 400 Mg Tablet PO Q6H PRN Mild Pain (1-3) or Fever Insulin Aspart 20 units 02/13/25 17:00 02/14/25 17:13 Insulin Aspart (*Bkc) 100 Units/Ml SUB-Q 20 units TIDWM FARHANA Administration Insulin Glargine 35 units 02/13/25 21:00 02/14/25 21:34 Insulin Glargine (*Bkc) 100 Units/Ml 0.25 units/kg (35 units) 35 units SUB-Q Administration HS FARHANA Lamotrigine 100 mg 02/13/25 21:00 02/14/25 21:23 Lamotrigine 100 Mg Tablet PO 100 mg Q12HR FARHANA Administration Losartan Potassium 100 mg 02/14/25 09:00 02/15/25 09:50 Losartan Potassium 100 Mg Tablet PO 100 mg DAILY FARHANA Administration Melatonin 5 mg 02/13/25 21:00 02/14/25 21:21 Melatonin 5 Mg Tablet PO 5 mg HS FARHANA Administration Metoprolol Tartrate 50 mg 02/13/25 21:00 02/15/25 09:49 Metoprolol Tartrate 50 Mg Tab PO 50 mg Q12HR FARHANA Administration Rivaroxaban 2.5 mg 02/13/25 21:00 02/14/25 21:22 Rivaroxaban 2.5 Mg Tablet PO 2.5 mg Q12HR FARHANA Administration Senna/Docusate Sodium 2 tab 02/14/25 09:40 02/15/25 09:49 Senna/Docusate Sodium Tablet PO 2 tab BID FARHANA Administration Radiology Results: ITS Impressions Chest X-Ray 02/12/25 19:52 IMPRESSION: Mild pulmonary vascular congestion with a small left-sided pleural effusion. Abdomen/Pelvis CT 02/13/25 05:24 Impression: Bilateral hydroureteronephrosis, as detailed above, right worse than left, without obstructing stone or mass evident. 3 mm nonobstructing left renal stone. Renal Ultrasound 02/13/25 16:16 IMPRESSION: 1. Normal kidneys without hydronephrosis. Labs Labs: Laboratory Results - last 24 hr 02/14/25 02/14/25 02/14/25 11:36 16:29 20:57 WBC RBC Hgb Hct MCV MCH MCHC RDW Plt Count MPV Immature Gran % (Auto) Neut % (Auto) Lymph % (Auto) [place] % (Auto) Eos % (Auto) Baso % (Auto) Lymph # (Auto) [place] # (Auto) Eos # (Auto) Baso # (Auto) Abs Immat Gran (auto) Absolute Neuts (auto) Absolute Nucleated RBC Band Neutrophils % Nucleated RBC % Smudge Cells Platelet Estimate % Immature Plt Fraction Anisocytosis Schistocytes Sodium Potassium Chloride Carbon Dioxide Anion Gap BUN Creatinine Estim Creat Clear Calc Estimated GFR Glucose POC Capillary Glucose 172 H 162 H 155 H Calcium Magnesium Total Bilirubin AST ALT Alkaline Phosphatase Total Protein Albumin 02/15/25 02/15/25 06:32 07:52 WBC 3.9 L RBC 3.54 L Hgb 9.9 L Hct 31.8 L MCV 89.8 MCH 28.0 MCHC 31.1 L RDW 14.7 H Plt Count 61 L MPV 11.3 H Immature Gran % (Auto) 0.5 Neut % (Auto) 59.1 Lymph % (Auto) 21.1 [place] % (Auto) 14.9 H Eos % (Auto) 3.6 Baso % (Auto) 0.8 Lymph # (Auto) 0.82 L [place] # (Auto) 0.6 Eos # (Auto) 0.1 Baso # (Auto) 0.0 Abs Immat Gran (auto) 0.02 Absolute Neuts (auto) 2.3 Absolute Nucleated RBC 0.000 Band Neutrophils % Not Reportable Nucleated RBC % 0.0 Smudge Cells Few Platelet Estimate Decreased % Immature Plt Fraction 4.2 Anisocytosis 1+ Schistocytes None seen Sodium 137 Potassium 4.1 Chloride 110 H Carbon Dioxide 20 L Anion Gap 7 BUN 35 H Creatinine 1.18 H Estim Creat Clear Calc 67 Estimated GFR 46 L Glucose 167 H POC Capillary Glucose 173 H Calcium 9.2 Magnesium 2.2 Total Bilirubin 0.3 AST 93 H ALT 125 H Alkaline Phosphatase 143 H Total Protein 5.9 L Albumin 2.9 L
[2025-02-15] MEDS: BACLOFEN 10 MG TABLET PO ×3 (10:00→21:45)
[2025-02-15] MEDS: ACETAMINOPHEN 325 MG TABLET PO ×3 (10:00→21:45)
[2025-02-15] MEDS: GABAPENTIN 300 MG CAPSULE PO ×3 (10:01→21:46)
[2025-02-15 10:47] LABS: Vitamin B12 > 1000.0 pg/mL (239-931)
[2025-02-15 12:04] LABS: Iron 30 ug/dL (37-170)
[2025-02-15 12:13] LABS: Percent Iron Saturation 10 % (20-50)
[2025-02-15] MEDS: MELATONIN 5 MG TABLET PO (21:45)
[2025-02-15] MEDS: levoFLOXacin 750 MG/D5W 150 ML 750 MG/150 ML BAG 100 MG IVPB (21:50)
[2025-02-15] MEDS: INSULIN GLARGINE (*BKC) 100 UNITS/ML 35 UNITS SUB-Q (21:59)
[2025-02-16] VITALS (12 sets, daily range): BP systolic 145–161; BP diastolic 58–65; PULSE 48–61; RESP 18; TEMP 36.4–37; O2SAT 95–97
[2025-02-16 07:15] LABS: Hematocrit 31.7 % (37.0-47.0); Hemoglobin 9.9 g/dL (12.0-15.0); Immature Granulocyte Percent A 0.4 % (0-0.5); Immature Platelet Fraction Pct 3.3 % (0.9-11.2); Lymphocytes Absolute Auto 0.95 K/mm3 (0.9-3.2); Mean Corpuscular HGB Conc 31.2 g/dl (32-36); Mean Corpuscular Hemoglobin 28.1 pg (26-34); Mean Corpuscular Volume 90.1 fl (80-100); Nucleated Red Blood Cells Absolute Auto 0.000 K/mm3 (0.0-0.012); Nucleated Red Blood Cells Perc 0.0 % (0.0-0.2); Platelet Count Result 72 k/mm3 (150-375); Red Blood Count 3.52 M/mm3 (4.2-5.4); White Blood Count 4.5 K/mm3 (4.5-10.0)
[2025-02-16 07:31] LABS: Alanine Aminotransferase 90 U/L (6-35); Albumin Level 3.0 g/dL (3.5-5.1); Alkaline Phosphatase 145 U/L (38-126); Anion Gap 9 mmol/L (4-12); Aspartate Amino Transferase 49 U/L (14-36); Bilirubin,Total 0.2 mg/dL (0.2-1.3); Blood Urea Nitrogen 39 mg/dL (7-17); Calcium 9.0 mg/dL (8.4-10.2); Carbon Dioxide 19 mmol/L (22-30); Chloride 109 mmol/L (98-107); Estimated CRCL calculation 59 ml/min; Estimated Glomerular Filt Rate 39; Glucose 204 mg/dL (65-110); Magnesium 2.2 mg/dL (1.6-2.3); Potassium 4.4 mmol/L (3.4-5.0); Sodium 137 mmol/L (137-145); Total Protein 5.9 g/dL (6.3-8.2)
[2025-02-16] MEDS: ATORVASTATIN 40 MG TABLET 80 MG PO (08:56)
[2025-02-16] MEDS: DULoxetine HCL 60 MG CAPSULE.DR PO (09:08)
[2025-02-16] MEDS: SENNA/DOCUSATE SODIUM TABLET 2 TAB PO ×2 (09:08→16:09)
[2025-02-16] MEDS: LOSARTAN POTASSIUM 100 MG TABLET PO (09:08)
[2025-02-16] MEDS: ASPIRIN 81 MG ENTERIC TABLET PO (09:08)
[2025-02-16] MEDS: EZETIMIBE 10 MG TABLET PO (09:08)
[2025-02-16] MEDS: GABAPENTIN 300 MG CAPSULE PO ×3 (09:11→21:55)
[2025-02-16] MEDS: BACLOFEN 10 MG TABLET PO ×3 (09:11→21:55)
[2025-02-16] MEDS: ACETAMINOPHEN 325 MG TABLET PO ×3 (09:12→21:55)
--- NOTE | 2025-02-16 11:43 | P.PNIM_ITS ---
Progress Note: A&P Assessment and Plan (1) Fever: Code(s): R50.9 - Fever, unspecified Status: Acute Assessment and Plan: Resulting from pyelonephritis Urine culture grows mixed genital michelle Blood culture grows E coli Continue IV antibiotics. Improving, will continue current treatment. (2) Pulmonary vascular congestion: Code(s): R09.89 - Other specified symptoms and signs involving the circulatory and respiratory systems Status: Acute Assessment and Plan: -CXR with significant findings of pulmonary vascular congestion and small pleural effusion -BNP 404 - give fluids sparingly Improving,will continue current treatment. (3) Metabolic acidosis: Code(s): E87.20 - Acidosis, unspecified Status: Acute Assessment and Plan: -Urine ketones noted with anion gap of 13 -Normal blood sugar -give fluids sparingly Resolved (4) Diabetes mellitus: Code(s): E11.9 - Type 2 diabetes mellitus without complications Status: Acute Assessment and Plan: -Previously very uncontrolled and led to left BKA -restart home insulin -Consider holding Farxiga/Jardiance if Beta-hydroxybutyrate is elevated Getting better, will continue current treatment (5) Hx of left BKA: Code(s): Z89.512 - Acquired absence of left leg below knee Status: Acute Assessment and Plan: -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 diabetes -Chronic wounds present on right lower extremity, follows with [facility] wound care (6) Thrombocytopenia: Code(s): D69.6 - Thrombocytopenia, unspecified Status: Acute Assessment and Plan: Platelets 72 Will monitor closely. Heme consult. Plan Urine retention Scant hydronephrosis Continue tamsulosin Urologist recommend ultrasound tomorrow with folic catheter drainage bipolar - on aripiprazole HTN - on norvasc PAD- on plavix chronic pain - on baclofen BKA clean stump Subjective Date/time seen: 02/16/25 11:43 Interval history: Pyelonephritis Diabetes Electrolyte imbalance Patient was seen during the morning rounds today. Patient is feeling slightly better. Decreased pain. No fever. No abdominal pain, nausea, no vomiting. No shortness of breath or chest pain Review of Systems Review of Systems: Pt feels unwell sugars are running high ongoing R flank pains All systems reviewed & are unremarkable except as noted in HPI and below Exam Narrative: GENERAL: Obese, left BKA, wounds right leg chronic old wound ENT:? Mucous membranes dry despite drinking fluids well today CHEST: Clear to auscultation.? No respiratory distress. HEART: Regular rate and rhythm. ? Normal peripheral pulses. ABDOMEN: Soft, nontender, nondistended. EXTREMITIES: Left BKA, right leg with multiple chronic wounds, no drainage or erythema SKIN: Warm dry normal color NEURO: Alert and oriented x3. Bilateral upper extremity gross tremors which patient states is chronic PSYCH: Normal mood and affect Objective Data Vital Signs Vital Signs: Vital Signs - 24 hr 02/15/25 12:00 02/15/25 14:00 02/15/25 16:00 Temperature 36.2 C L Pulse Rate 52 L 54 L 54 L Respiratory Rate 16 Blood Pressure 119/40 L Pulse Oximetry 95 Oxygen Delivery 02/15/25 20:38 02/15/25 21:43 02/15/25 21:45 Temperature 36.6 C Pulse Rate 55 L 52 L Respiratory Rate 20 Blood Pressure 148/52 H Pulse Oximetry 96 96 Oxygen Delivery Room Air 02/15/25 21:45 02/16/25 00:05 02/16/25 01:00 Temperature Pulse Rate 49 L 53 L Respiratory Rate Blood Pressure 145/58 H Pulse Oximetry Oxygen Delivery 02/16/25 04:01 02/16/25 06:00 02/16/25 08:00 Temperature 36.6 C Pulse Rate 48 L 56 L Respiratory Rate 18 Blood Pressure 157/65 H Pulse Oximetry 95 Oxygen Delivery Room Air 02/16/25 09:06 Temperature Pulse Rate 57 L Respiratory Rate Blood Pressure Pulse Oximetry Oxygen Delivery Intake/Output Intake/Output: Intake & Output 02/13/25 02/14/25 02/15/25 02/16/25 23:59 23:59 23:59 23:59 Intake Total 870 1190 530 0 Output Total 3400 2075 2300 1500 Balance -2530 -885 -1770 -1500 Meds/Results Medications: Active Medications Generic Name Dose Route Start Last Admin Trade Name Freq PRN Reason Stop Dose Admin Acetaminophen 325 mg 02/13/25 14:00 02/16/25 09:12 Acetaminophen 325 Mg Tablet PO 325 mg 0900,1400,2100 FARHANA Administration Amlodipine Besylate 10 mg 02/13/25 09:00 02/16/25 09:08 Amlodipine Besylate 10 Mg Tablet PO 10 mg DAILY FARHANA Administration Aripiprazole 10 mg 02/13/25 09:00 02/16/25 09:08 Aripiprazole 10 Mg Tablet PO 10 mg DAILY FARHANA Administration Aspirin 81 mg 02/14/25 09:00 02/16/25 09:08 Aspirin 81 Mg Enteric Tablet PO 81 mg DAILY FARHANA Administration Atorvastatin Calcium 80 mg 02/13/25 09:00 02/16/25 08:56 Atorvastatin 40 Mg Tablet PO 80 mg DAILY FARHANA Administration Baclofen 10 mg 02/13/25 21:00 02/16/25 09:11 Baclofen 10 Mg Tablet PO 10 mg 0900,1399,2099 FARHANA Administration Clopidogrel Bisulfate 75 mg 02/13/25 09:00 02/14/25 09:49 Clopidogrel Bisulfate 75 Mg Tablet PO 75 mg DAILY FARHANA Administration Dextrose 12.5 gm 02/13/25 01:20 Dextrose 50% 25 Gm/50 Ml Syringe IV PUSH PRN PRN Hypoglycemia Protocol Duloxetine HCl 60 mg 02/13/25 09:00 02/16/25 09:08 Duloxetine Hcl 60 Mg Capsule. PO 60 mg QAM FARHANA Administration Ezetimibe 10 mg 02/13/25 09:00 02/16/25 09:08 Ezetimibe 10 Mg Tablet PO 10 mg DAILY [facility]ARHANA Administration Empagliflozin 25 mg 02/13/25 09:00 Empagliflozin 25 Mg Tablet BY MOUTH DAILY [facility] Enoxaparin Sodium 40 mg 02/13/25 09:00 02/14/25 09:01 Enoxaparin 40 Mg/0.4 Ml Syringe SUB-Q Not Given Q12HR [facility]ARHANA Gabapentin 300 mg 02/13/25 14:00 02/16/25 09:11 Gabapentin 300 Mg Capsule PO 300 mg 09,1399,2099 FARHANA Administration Glucagon 1 mg 02/13/25 01:20 Glucagon For Inj 1 Mg Vial IM PRN PRN Hypoglycemia Protocol Glucose 15 gm 02/13/25 01:20 Glucose Oral Gel 15 Gm Of Glucse In 37.5 Gm Tube PO PRN PRN Hypoglycemia Protocol Hydralazine HCl 50 mg 02/13/25 14:00 02/16/25 09:11 Hydralazine Hcl 50 Mg Tablet PO 50 mg 0900,1399,2099 FARHANA Administration Levofloxacin/Dextrose 750 mg in 150 mls @ 100 mls/hr 02/13/25 21:00 02/15/25 23:20 Levaquin 750 Mg/D5w 150 Ml IVPB Infused Q24H FARHANA Infusion Dextrose 1,000 mls @ 100 mls/hr 02/13/25 01:20 Dextrose 5% 1,000 Ml IVPB PRN PRN Hypoglycemia Protocol Ibuprofen 400 mg 02/12/25 20:53 Ibuprofen 400 Mg Tablet PO Q6H PRN Mild Pain (1-3) or Fever Insulin Aspart 20 units 02/13/25 17:00 02/16/25 08:55 Insulin Aspart (*Bkc) 100 Units/Ml SUB-Q Not Given TIDWM FARHANA Insulin Glargine 35 units 02/13/25 21:00 02/15/25 21:59 Insulin Glargine (*Bkc) 100 Units/Ml 0.25 units/kg (35 units) 35 units SUB-Q Administration HS [facility] Lamotrigine 100 mg 02/13/25 21:00 02/16/25 09:08 Lamotrigine 100 Mg Tablet PO 100 mg Q12HR FARHANA Administration Losartan Potassium 100 mg 02/14/25 09:00 02/16/25 09:08 Losartan Potassium 100 Mg Tablet PO 100 mg DAILY FARHANA Administration Melatonin 5 mg 02/13/25 21:00 02/15/25 21:45 Melatonin 5 Mg Tablet PO 5 mg HS FARHANA Administration Metoprolol Tartrate 50 mg 02/16/25 21:00 Metoprolol Tartrate 50 Mg Tab PO Q12HR FARHANA Polyethylene Glycol 17 gm 02/16/25 11:01 Polyethylene Glycol 3350 17 Gm Powd.Pack PO QAM PRN Constipation Rivaroxaban 2.5 mg 02/13/25 21:00 02/14/25 21:22 Rivaroxaban 2.5 Mg Tablet PO 2.5 mg Q12HR FARHANA Administration Senna/Docusate Sodium 2 tab 02/14/25 09:40 02/16/25 09:08 Senna/Docusate Sodium Tablet PO 2 tab BID FARHANA Administration Radiology Results: ITS Impressions Chest X-Ray 02/12/25 19:52 IMPRESSION: Mild pulmonary vascular congestion with a small left-sided pleural effusion. Abdomen/Pelvis CT 02/13/25 05:24 Impression: Bilateral hydroureteronephrosis, as detailed above, right worse than left, without obstructing stone or mass evident. 3 mm nonobstructing left renal stone. Renal Ultrasound 02/13/25 16:16 IMPRESSION: 1. Normal kidneys without hydronephrosis. Abdomen Ultrasound 02/16/25 08:52 Impression: No significant abnormality seen. Somewhat suboptimal imaging related to patient body habitus. Labs Labs: Laboratory Results - last 24 hr 02/15/25 02/15/25 02/15/25 06:30 16:44 21:58 WBC RBC Hgb Hct MCV MCH MCHC RDW Plt Count MPV Immature Gran % (Auto) Neut % (Auto) Lymph % (Auto) [place] % (Auto) Eos % (Auto) Baso % (Auto) Lymph # (Auto) [place] # (Auto) Eos # (Auto) Baso # (Auto) Abs Immat Gran (auto) Absolute Neuts (auto) Absolute Nucleated RBC Nucleated RBC % % Immature Plt Fraction Sodium Potassium Chloride Carbon Dioxide Anion Gap BUN Creatinine Estim Creat Clear Calc Estimated GFR Glucose POC Capillary Glucose 168 H 143 H Calcium Magnesium Iron 30 L TIBC 286 % Saturation 10 L Total Bilirubin AST ALT Alkaline Phosphatase Total Protein Albumin 02/16/25 02/16/25 06:20 08:09 WBC 4.5 RBC 3.52 L Hgb 9.9 L Hct 31.7 L MCV 90.1 MCH 28.1 MCHC 31.2 L RDW 14.8 H Plt Count 72 L MPV 11.3 H Immature Gran % (Auto) 0.4 Neut % (Auto) 62.9 Lymph % (Auto) 21.2 [place] % (Auto) 11.1 H Eos % (Auto) 4.0 Baso % (Auto) 0.4 Lymph # (Auto) 0.95 [place] # (Auto) 0.5 Eos # (Auto) 0.2 Baso # (Auto) 0.0 Abs Immat Gran (auto) 0.02 Absolute Neuts (auto) 2.8 Absolute Nucleated RBC 0.000 Nucleated RBC % 0.0 % Immature Plt Fraction 3.3 Sodium 137 Potassium 4.4 Chloride 109 H Carbon Dioxide 19 L Anion Gap 9 BUN 39 H Creatinine 1.35 H Estim Creat Clear Calc 59 Estimated GFR 39 L Glucose 204 H POC Capillary Glucose 201 H Calcium 9.0 Magnesium 2.2 Iron TIBC % Saturation Total Bilirubin 0.2 AST 49 H ALT 90 H Alkaline Phosphatase 145 H Total Protein 5.9 L Albumin 3.0 L Quality VTE Prophylaxis VTE prophylaxis: pharmacologic ordered (Lovenox 40 mg BID (due to weight)
[2025-02-16] MEDS: INSULIN ASPART (*BKC) 100 UNITS/ML 20 UNITS SUB-Q ×2 (12:10→17:01)
[2025-02-16] MEDS: levoFLOXacin 750 MG/D5W 150 ML 750 MG/150 ML BAG 100 MG IVPB (21:53)
[2025-02-16] MEDS: MELATONIN 5 MG TABLET PO (21:55)
[2025-02-16] MEDS: INSULIN GLARGINE (*BKC) 100 UNITS/ML 35 UNITS SUB-Q (21:55)
[2025-02-17] VITALS (12 sets, daily range): BP systolic 136–160; BP diastolic 44–58; PULSE 49–73; RESP 18; TEMP 36–36.8; O2SAT 96–97
--- NOTE | 2025-02-17 02:06 | PC.NURSE ---
Amaya Dobbs notified, patient pulse has been bradycardic throughout day shift ranging high 40's but low 50's. Blood pressure medications Hydralazine 50mg PO and Lopressor 50mg PO held. Will continue to monitor blood pressures and pulse Q4H for high blood pressures and bradycardic pulses. Patient denies chest pain, lightheadedness or fatigued, resting in bed. Call light within reach, bed in lowest position, and bed alarm set for fall precautions.
[2025-02-17 06:43] LABS: Hematocrit 31.9 % (37.0-47.0); Hemoglobin 9.9 g/dL (12.0-15.0); Immature Granulocyte Percent A 0.7 % (0-0.5); Immature Platelet Fraction Pct 2.5 % (0.9-11.2); Lymphocytes Absolute Auto 1.09 K/mm3 (0.9-3.2); Mean Corpuscular HGB Conc 31.0 g/dl (32-36); Mean Corpuscular Hemoglobin 28.0 pg (26-34); Mean Corpuscular Volume 90.1 fl (80-100); Nucleated Red Blood Cells Absolute Auto 0.000 K/mm3 (0.0-0.012); Nucleated Red Blood Cells Perc 0.0 % (0.0-0.2); Platelet Count Result 83 k/mm3 (150-375); Red Blood Count 3.54 M/mm3 (4.2-5.4); White Blood Count 5.9 K/mm3 (4.5-10.0)
[2025-02-17 06:52] LABS: Alanine Aminotransferase 78 U/L (6-35); Albumin Level 3.4 g/dL (3.5-5.1); Alkaline Phosphatase 156 U/L (38-126); Anion Gap 9 mmol/L (4-12); Aspartate Amino Transferase 40 U/L (14-36); Bilirubin,Total 0.3 mg/dL (0.2-1.3); Blood Urea Nitrogen 36 mg/dL (7-17); Calcium 9.6 mg/dL (8.4-10.2); Carbon Dioxide 21 mmol/L (22-30); Chloride 109 mmol/L (98-107); Estimated CRCL calculation 64 ml/min; Estimated Glomerular Filt Rate 43; Glucose 175 mg/dL (65-110); Magnesium 2.1 mg/dL (1.6-2.3); Potassium 4.5 mmol/L (3.4-5.0); Sodium 139 mmol/L (137-145); Total Protein 6.7 g/dL (6.3-8.2)
[2025-02-17] MEDS: INSULIN ASPART (*BKC) 100 UNITS/ML 20 UNITS SUB-Q ×3 (08:49→17:09)
[2025-02-17] MEDS: EZETIMIBE 10 MG TABLET PO (08:55)
[2025-02-17] MEDS: ASPIRIN 81 MG ENTERIC TABLET PO (08:56)
[2025-02-17] MEDS: SENNA/DOCUSATE SODIUM TABLET 2 TAB PO ×2 (08:56→17:06)
[2025-02-17] MEDS: LOSARTAN POTASSIUM 100 MG TABLET PO (08:57)
[2025-02-17] MEDS: DULoxetine HCL 60 MG CAPSULE.DR PO (08:57)
[2025-02-17] MEDS: ATORVASTATIN 40 MG TABLET 80 MG PO (08:57)
[2025-02-17] MEDS: GABAPENTIN 300 MG CAPSULE PO ×3 (09:00→21:17)
[2025-02-17] MEDS: BACLOFEN 10 MG TABLET PO ×3 (09:00→21:17)
[2025-02-17] MEDS: ACETAMINOPHEN 325 MG TABLET PO ×3 (09:00→21:17)
--- NOTE | 2025-02-17 11:31 | PM.IMPN ---
Progress Note: A&P Assessment and Plan (1) Fever: Code(s): R50.9 - Fever, unspecified Status: Acute Assessment and Plan: Resulting from pyelonephritis Urine culture grows mixed genital michelle Blood culture grows E coli Continue IV Levaquin today Will changed over Levaquin tomorrow per ID pharmacist recommendation Improving, will continue current treatment. (2) Pulmonary vascular congestion: Code(s): R09.89 - Other specified symptoms and signs involving the circulatory and respiratory systems Status: Acute Assessment and Plan: -CXR with significant findings of pulmonary vascular congestion and small pleural effusion -BNP 404 - give fluids sparingly Improving,will continue current treatment. (3) Metabolic acidosis: Code(s): E87.20 - Acidosis, unspecified Status: Acute Assessment and Plan: -Urine ketones noted with anion gap of 13 -Normal blood sugar -give fluids sparingly Resolved (4) Diabetes mellitus: Code(s): E11.9 - Type 2 diabetes mellitus without complications Status: Acute Assessment and Plan: -Previously very uncontrolled and led to left BKA -restart home insulin -Consider holding Farxiga/Jardiance if Beta-hydroxybutyrate is elevated Getting better, will continue current treatment (5) Hx of left BKA: Code(s): Z89.512 - Acquired absence of left leg below knee Status: Acute Assessment and Plan: -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 diabetes -Chronic wounds present on right lower extremity, follows with [facility] wound care (6) Thrombocytopenia: Code(s): D69.6 - Thrombocytopenia, unspecified Status: Acute Assessment and Plan: Platelets is trending up, bleed 83 today Will monitor closely. Heme consult. Plan Urine retention Scant hydronephrosis Continue tamsulosin management per Urologist sinus bradycardia Hold metoprolol p.o. History DVT Hold Xarelto because of thrombocytopenia bipolar - on aripiprazole HTN - on norvasc PAD- hold plavix ago thrombocytopenia chronic pain - on baclofen BKA clean stump Subjective Date/time seen: 02/17/25 11:31 Interval history: Patient feels better, still feels generally weak. Denies nausea vomiting dysuria Exam Narrative: GENERAL: Obese, left BKA, wounds right leg chronic old wound ENT:? Mucous membranes dry despite drinking fluids well today CHEST: Clear to auscultation.? No respiratory distress. HEART: Regular rate and rhythm. ? Normal peripheral pulses. ABDOMEN: Soft, nontender, nondistended. EXTREMITIES: Left BKA, right leg with multiple chronic wounds, no drainage or erythema SKIN: Warm dry normal color NEURO: Alert and oriented x3. Bilateral upper extremity gross tremors which patient states is chronic PSYCH: Normal mood and affect Objective Data Vital Signs Vital Signs: Vital Signs - 24 hr 02/16/25 12:00 02/16/25 14:00 02/16/25 16:00 Temperature 97.5 F L Pulse Rate 59 L 61 58 L Respiratory Rate 18 Blood Pressure 151/60 H Pulse Oximetry 96 Oxygen Delivery 02/16/25 20:01 02/16/25 21:55 02/16/25 21:55 Temperature Pulse Rate 54 L 48 L Respiratory Rate Blood Pressure Pulse Oximetry 97 Oxygen Delivery Room Air 02/16/25 22:00 02/17/25 00:00 02/17/25 00:04 Temperature 98.6 F Pulse Rate 56 L 49 L 58 L Respiratory Rate 18 Blood Pressure 161/59 H 147/53 H Pulse Oximetry 97 Oxygen Delivery 02/17/25 04:00 02/17/25 06:00 02/17/25 08:00 Temperature 96.8 F L Pulse Rate 59 L 56 L Respiratory Rate 18 Blood Pressure 160/58 H Pulse Oximetry 97 Oxygen Delivery Room Air 02/17/25 08:54 02/17/25 09:00 Temperature Pulse Rate 54 L Respiratory Rate Blood Pressure 154/55 H Pulse Oximetry Oxygen Delivery Intake/Output Intake/Output: Intake & Output 02/14/25 02/15/25 02/16/25 02/17/25 23:59 23:59 23:59 23:59 Intake Total 1190 530 630 790 Output Total 2075 2300 3950 1400 [facility] -[phone] Meds/Results Medications: Active Medications Generic Name Dose Route Start Last Admin Trade Name Freq PRN Reason Stop Dose Admin Acetaminophen 325 mg 02/13/25 14:00 02/17/25 09:00 Acetaminophen 325 Mg Tablet PO 325 mg 0900,1400,2100 FARHANA Administration Amlodipine Besylate 10 mg 02/13/25 09:00 02/17/25 08:57 Amlodipine Besylate 10 Mg Tablet PO 10 mg DAILY FARHANA Administration Aripiprazole 10 mg 02/13/25 09:00 02/17/25 08:57 Aripiprazole 10 Mg Tablet PO 10 mg DAILY FARHANA Administration Aspirin 81 mg 02/14/25 09:00 02/17/25 08:56 Aspirin 81 Mg Enteric Tablet PO 81 mg DAILY FARHANA Administration Atorvastatin Calcium 80 mg 02/13/25 09:00 02/17/25 08:57 Atorvastatin 40 Mg Tablet PO 80 mg DAILY FARHANA Administration Baclofen 10 mg 02/13/25 21:00 02/17/25 09:00 Baclofen 10 Mg Tablet PO 10 mg 0900,1399,2099 [facility] Administration Clopidogrel Bisulfate 75 mg 02/13/25 09:00 02/14/25 09:49 Clopidogrel Bisulfate 75 Mg Tablet PO 75 mg DAILY FARHANA Administration Dextrose 12.5 gm 02/13/25 01:20 Dextrose 50% 25 Gm/50 Ml Syringe IV PUSH PRN PRN Hypoglycemia Protocol Duloxetine HCl 60 mg 02/13/25 09:00 02/17/25 08:57 Duloxetine Hcl 60 Mg Capsule. PO 60 mg QAM FARHANA Administration Ezetimibe 10 mg 02/13/25 09:00 02/17/25 08:55 Ezetimibe 10 Mg Tablet PO 10 mg DAILY FARHANA Administration Empagliflozin 25 mg 02/13/25 09:00 Empagliflozin 25 Mg Tablet BY MOUTH DAILY [facility] Enoxaparin Sodium 40 mg 02/13/25 09:00 02/14/25 09:01 Enoxaparin 40 Mg/0.4 Ml Syringe SUB-Q Not Given Q12HR [facility] Gabapentin 300 mg 02/13/25 14:00 02/17/25 09:00 Gabapentin 300 Mg Capsule PO 300 mg 09,1399,2099 [facility] Administration Glucagon 1 mg 02/13/25 01:20 Glucagon For Inj 1 Mg Vial IM PRN PRN Hypoglycemia Protocol Glucose 15 gm 02/13/25 01:20 Glucose Oral Gel 15 Gm Of Glucse In 37.5 Gm Tube PO PRN PRN Hypoglycemia Protocol Hydralazine HCl 50 mg 02/13/25 14:00 02/17/25 09:00 Hydralazine Hcl 50 Mg Tablet PO 50 mg 0900,1399,2099 [facility] Administration Levofloxacin/Dextrose 750 mg in 150 mls @ 100 mls/hr 02/13/25 21:00 02/16/25 23:23 Levaquin 750 Mg/D5w 150 Ml IVPB 02/17/25 22:29 Infused Q24H FARHANA Infusion Dextrose 1,000 mls @ 100 mls/hr 02/13/25 01:20 Dextrose 5% 1,000 Ml IVPB PRN PRN Hypoglycemia Protocol Ibuprofen 400 mg 02/12/25 20:53 Ibuprofen 400 Mg Tablet PO Q6H PRN Mild Pain (1-3) or Fever Insulin Aspart 20 units 02/13/25 17:00 02/17/25 08:49 Insulin Aspart (*Bkc) 100 Units/Ml SUB-Q 20 units TIDWM FARHANA Administration Insulin Glargine 35 units 02/13/25 21:00 02/16/25 21:55 Insulin Glargine (*Bkc) 100 Units/Ml 0.25 units/kg (35 units) 35 units SUB-Q Administration HS [facility] Lamotrigine 100 mg 02/13/25 21:00 02/17/25 08:57 Lamotrigine 100 Mg Tablet PO 100 mg Q12HR FARHANA Administration Levofloxacin 750 mg 02/18/25 21:00 Levofloxacin 750 Mg Tablet PO 02/21/25 21:01 QHS FARHANA Losartan Potassium 100 mg 02/14/25 09:00 02/17/25 08:57 Losartan Potassium 100 Mg Tablet PO 100 mg DAILY FARHANA Administration Melatonin 5 mg 02/13/25 21:00 02/16/25 21:55 Melatonin 5 Mg Tablet PO 5 mg HS [facility] Administration Metoprolol Tartrate 50 mg 02/16/25 21:00 02/17/25 09:00 Metoprolol Tartrate 50 Mg Tab PO Not Given Q12HR [facility] Polyethylene Glycol 17 gm 02/16/25 11:01 02/17/25 08:55 Polyethylene Glycol 3350 17 Gm Powd.Pack PO 17 gm QAM PRN Administration Constipation Rivaroxaban 2.5 mg 02/13/25 21:00 02/14/25 21:22 Rivaroxaban 2.5 Mg Tablet PO 2.5 mg Q12HR FARHANA Administration Senna/Docusate Sodium 2 tab 02/14/25 09:40 02/17/25 08:56 Senna/Docusate Sodium Tablet PO 2 tab BID FARHANA Administration Radiology Results: ITS Impressions Chest X-Ray 02/12/25 19:52 IMPRESSION: Mild pulmonary vascular congestion with a small left-sided pleural effusion. Abdomen/Pelvis CT 02/13/25 05:24 Impression: Bilateral hydroureteronephrosis, as detailed above, right worse than left, without obstructing stone or mass evident. 3 mm nonobstructing left renal stone. Renal Ultrasound 02/13/25 16:16 IMPRESSION: 1. Normal kidneys without hydronephrosis. Abdomen Ultrasound 02/16/25 08:52 Impression: No significant abnormality seen. Somewhat suboptimal imaging related to patient body habitus. Labs Labs: Laboratory Results - last 24 hr 02/16/25 02/16/25 02/16/25 11:55 16:28 20:41 WBC RBC Hgb Hct MCV MCH MCHC RDW Plt Count MPV Immature Gran % (Auto) Neut % (Auto) Lymph % (Auto) [place] % (Auto) Eos % (Auto) Baso % (Auto) Lymph # (Auto) [place] # (Auto) Eos # (Auto) Baso # (Auto) Abs Immat Gran (auto) Absolute Neuts (auto) Absolute Nucleated RBC Nucleated RBC % % Immature Plt Fraction Sodium Potassium Chloride Carbon Dioxide Anion Gap BUN Creatinine Estim Creat Clear Calc Estimated GFR Glucose POC Capillary Glucose 181 H 193 H 174 H Calcium Magnesium Total Bilirubin AST ALT Alkaline Phosphatase Total Protein Albumin 02/17/25 02/17/25 06:12 08:00 WBC 5.9 RBC 3.54 L Hgb 9.9 L Hct 31.9 L MCV 90.1 MCH 28.0 MCHC 31.0 L RDW 14.6 H Plt Count 83 L MPV 10.8 H Immature Gran % (Auto) 0.7 H Neut % (Auto) 68.2 Lymph % (Auto) 18.5 [place] % (Auto) 8.0 Eos % (Auto) 4.3 Baso % (Auto) 0.3 Lymph # (Auto) 1.09 [place] # (Auto) 0.5 Eos # (Auto) 0.3 Baso # (Auto) 0.0 Abs Immat Gran (auto) 0.04 H Absolute Neuts (auto) 4.0 Absolute Nucleated RBC 0.000 Nucleated RBC % 0.0 % Immature Plt Fraction 2.5 Sodium 139 Potassium 4.5 Chloride 109 H Carbon Dioxide 21 L Anion Gap 9 BUN 36 H Creatinine 1.24 H Estim Creat Clear Calc 64 Estimated GFR 43 L Glucose 175 H POC Capillary Glucose 179 H Calcium 9.6 Magnesium 2.1 Total Bilirubin 0.3 AST 40 H ALT 78 H Alkaline Phosphatase 156 H Total Protein 6.7 Albumin 3.4 L
--- NOTE | 2025-02-17 18:49 | WPDONCCN ---
Assessment and Plan Assessment and plan (1) Thrombocytopenia: Code(s): D69.6 - Thrombocytopenia, unspecified Status: Acute Plan Thrombocytopenia. Patient has a history of chronic right leg wound and left leg amputation. She came into the hospital with mental status changes and fever. She was diagnosed with pyelonephritis. CT scan abdomen and pelvis showed bilateral hydroureteronephrosis with 3 mm left renal stone. There was no evidence of hepatosplenomegaly. I suspect her thrombocytopenia could be secondary to infection or drug induced. Vitamin B12 level came back elevated. Iron levels were low. I will start her on iron infusion for anemia as well. 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 Her liver enzymes are also elevated suggesting liver pathology even though the CT scan showed normal liver and spleen. No need for platelet transfusion at this time. No need for bone marrow biopsy testing. I will see her in my office for follow-up visit. HPI Data of Consult Date/Time: 02/17/25 18:49 Requesting Physician: Antione Deras MD Primary Care Provider: Soy Kelly, Consult Narrative Narrative: Cassi Yo is a 69 year old female with history of chronic right leg wound and left leg amputation 2 years ago brought into the hospital with acute onset of fever and mental status changes. She was diagnosed with UTI. She denies any bleeding including melena and hematochezia. She denies any previous history of liver disease. Her labs showed hemoglobin [place] 9.9 [place] [address]. Abdominal ultrasound showed no acute abnormality. CT abdomen and pelvis showed 3 mm left kidney stone and bilateral hydroureteronephrosis. She was diagnosed with pyelonephritis with E coli and started on Levaquin. Denies any other new complaints. Review of Systems Review of Systems: Review of system as per HPI otherwise negative [facility] Surgical History Surgical History Hx of left BKA Family History Family History Father Acute myocardial infarction Mother Diabetes mellitus Social History Social History Smoking status: Light tobacco smoker Tobacco type: cigarettes Second hand tobacco smoke exposure: Yes Alcohol intake: current Drinks per week: 0 Substance use: never Substance use type: does not use Do You Feel Safe in your Home?: Yes Lack of Transportation: No Lack of Food: Never True Current Housing: I Have Housing Concerned About Future Housing: No Difficulty Paying Gas/Electric Bills: No Difficulty Paying for Meds: No Currently Unemployed: No Education: Decline to Answer Difficulty w/ Childcare or Family Care: No Spiritual care concerns: No Meds Home Medications and Allergies Home Medications ?Medication ?Instructions ?Recorded ?Confirmed ?Type acetaminophen 325 mg tablet 325 mg PO 0900,1400,209902/13/25 02/13/25 History amlodipine 10 mg tablet 10 mg PO DAILY 02/13/25 02/13/25 History aripiprazole 10 mg tablet 10 mg PO DAILY 02/13/25 02/13/25 History ascorbic acid (vitamin C) 500 mg 500 mg PO DAILY 02/13/25 02/13/25 History tablet (C-500) aspirin 81 mg tablet,delayed 81 mg PO DAILY 02/13/25 02/13/25 History release (Adult Low Dose Aspirin) atorvastatin 80 mg tablet 80 mg PO DAILY 02/13/25 02/13/25 History baclofen 10 mg tablet 10 mg PO TID PRN muscle spasm 02/13/25 02/13/25 History calcium carbonate (Super Calcium) 600 mg PO DAILY 02/13/25 02/13/25 History cholecalciferol (vitamin D3) 50 2,000 unit PO DAILY 02/13/25 02/13/25 History mcg (2,000 unit) capsule (Vitamin D3) clopidogrel 75 mg tablet 75 mg PO DAILY 02/13/25 02/13/25 History dapagliflozin propanediol 10 mg 10 mg PO DAILY 02/13/25 02/13/25 History tablet (Farxiga) duloxetine 60 mg capsule,delayed 60 mg PO QAM 02/13/25 02/13/25 History release ezetimibe 10 mg tablet 10 mg PO DAILY 02/13/25 02/13/25 History gabapentin 300 mg capsule 300 mg PO 0900,1400,209902/13/25 02/13/25 History hydralazine 50 mg tablet 50 mg PO 0900,1400,209902/13/25 02/13/25 History insulin aspart U-100 100 unit/mL 20 unit subcut TIDWM 02/13/25 02/13/25 History (3 mL) subcutaneous pen (Novolog FlexPen U-100 Insulin aspart) insulin glargine 100 45 unit subcut Q12H 02/13/25 02/13/25 History unit-lixisenatide 33 mcg/mL subcutaneous pen (Soliqua ) lamotrigine 100 mg tablet 100 mg PO Q12H 02/13/25 02/13/25 History losartan 100 mg tablet 100 mg PO DAILY 02/13/25 02/13/25 History melatonin 5 mg tablet 5 mg PO HS 02/13/25 02/13/25 History metoprolol tartrate 50 mg tablet 50 mg PO Q12H 02/13/25 02/13/25 History multivitamin (Daily Multi-Vitamin 1 tablet PO DAILY 02/13/25 02/13/25 History tablet) rivaroxaban 2.5 mg tablet (Xarelto) 2.5 mg PO Q12H 02/13/25 02/13/25 History Allergies Allergy/AdvReac Type Severity Reaction Status Date / Time latex Allergy Unknown Unknown Verified 02/12/25 22:38 Vital Signs Vital Signs - 24 hr 02/16/25 20:01 02/16/25 21:55 02/16/25 21:55 Temperature Pulse Rate 54 L 48 L Respiratory Rate Blood Pressure Pulse Oximetry 97 Oxygen Delivery Room Air 02/16/25 22:00 02/17/25 00:00 02/17/25 00:04 Temperature 37.0 C Pulse Rate 56 L 49 L 58 L Respiratory Rate 18 Blood Pressure 161/59 H 147/53 H Pulse Oximetry 97 Oxygen Delivery 02/17/25 04:00 02/17/25 06:00 02/17/25 08:00 Temperature 36.0 C L Pulse Rate 59 L 56 L Respiratory Rate 18 Blood Pressure 160/58 H Pulse Oximetry 97 Oxygen Delivery Room Air 02/17/25 08:00 02/17/25 08:54 02/17/25 09:00 Temperature Pulse Rate 73 54 L Respiratory Rate Blood Pressure 154/55 H Pulse Oximetry Oxygen Delivery 02/17/25 12:00 02/17/25 14:00 02/17/25 16:00 Temperature 36.7 C Pulse Rate 66 63 52 L Respiratory Rate 18 Blood Pressure 136/44 L Pulse Oximetry 96 Oxygen Delivery Exam Narrative: Lungs are clear to auscultation bilaterally Cardiovascular regular rate rhythm no murmurs Abdomen soft nontender nondistended bowel sounds are positive Extremities no edema Results Labs 02/17/25 06:12 02/17/25 06:12 Labs: Short CBC 02/17/25 Range/Units 06:12 WBC 5.9 (4.5-10.0) K/mm3 Hgb 9.9 L (12.0-15.0) g/dL Hct 31.9 L (37.0-47.0) % Plt Count 83 L (150-375) k/mm3 BMP 02/17/25 06:12 Sodium 139 Potassium 4.5 Chloride 109 H Carbon Dioxide 21 L BUN 36 H Creatinine 1.24 H Glucose 175 H Calcium 9.6 Liver Function 02/17/25 Range/Units 06:12 Total Bilirubin 0.3 (0.2-1.3) mg/dL AST 40 H (14-36) U/L ALT 78 H (6-35) U/L Alkaline Phosphatase 156 H (38-126) U/L Albumin 3.4 L (3.5-5.1) g/dL
[2025-02-17] MEDS: IRON SUCROSE COMPLEX 400 MG, IRON SUCROSE COMPLEX 100 MG in SODIUM CHLORIDE 0.9% IV 250 ML 78.57 MG IVPB (21:16)
[2025-02-17] MEDS: INSULIN GLARGINE (*BKC) 100 UNITS/ML 35 UNITS SUB-Q (21:16)
[2025-02-17] MEDS: TAMSULOSIN HCL 0.4 MG CAPSULE PO (21:16)
[2025-02-17] MEDS: MELATONIN 5 MG TABLET PO (21:17)
[2025-02-18] VITALS: PULSE 45
[2025-02-18] MEDS: levoFLOXacin 750 MG/D5W 150 ML 750 MG/150 ML BAG 100 MG IVPB (01:14)
[2025-02-18 04:00] VITALS: PULSE 43
[2025-02-18 06:00] VITALS: BP 158/60; PULSE 55; RESP 18; TEMP 36.1; O2SAT 95
[2025-02-18 06:06] LABS: Hematocrit 31.1 % (37.0-47.0); Hemoglobin 9.6 g/dL (12.0-15.0); Immature Granulocyte Percent A 0.7 % (0-0.5); Immature Platelet Fraction Pct 1.9 % (0.9-11.2); Lymphocytes Absolute Auto 1.73 K/mm3 (0.9-3.2); Mean Corpuscular HGB Conc 30.9 g/dl (32-36); Mean Corpuscular Hemoglobin 27.7 pg (26-34); Mean Corpuscular Volume 89.9 fl (80-100); Nucleated Red Blood Cells Absolute Auto 0.000 K/mm3 (0.0-0.012); Nucleated Red Blood Cells Perc 0.0 % (0.0-0.2); Platelet Count Result 96 k/mm3 (150-375); Red Blood Count 3.46 M/mm3 (4.2-5.4); White Blood Count 5.6 K/mm3 (4.5-10.0)
[2025-02-18 06:16] LABS: Alanine Aminotransferase 56 U/L (6-35); Albumin Level 3.1 g/dL (3.5-5.1); Alkaline Phosphatase 127 U/L (38-126); Anion Gap 5 mmol/L (4-12); Aspartate Amino Transferase 33 U/L (14-36); Bilirubin,Total 0.4 mg/dL (0.2-1.3); Blood Urea Nitrogen 31 mg/dL (7-17); Calcium 9.2 mg/dL (8.4-10.2); Carbon Dioxide 23 mmol/L (22-30); Chloride 109 mmol/L (98-107); Estimated CRCL calculation 75 ml/min; Estimated Glomerular Filt Rate 52; Glucose 133 mg/dL (65-110); Magnesium 2.1 mg/dL (1.6-2.3); Potassium 4.4 mmol/L (3.4-5.0); Sodium 137 mmol/L (137-145); Total Protein 6.0 g/dL (6.3-8.2)
[2025-02-18 08:00] VITALS: PULSE 92
[2025-02-18] MEDS: INSULIN ASPART (*BKC) 100 UNITS/ML 20 UNITS SUB-Q ×2 (08:30→13:02)
[2025-02-18] MEDS: DULoxetine HCL 60 MG CAPSULE.DR PO (08:32)
[2025-02-18] MEDS: LOSARTAN POTASSIUM 100 MG TABLET PO (08:32)
[2025-02-18] MEDS: ASPIRIN 81 MG ENTERIC TABLET PO (08:32)
[2025-02-18] MEDS: EZETIMIBE 10 MG TABLET PO (08:32)
[2025-02-18] MEDS: SENNA/DOCUSATE SODIUM TABLET 2 TAB PO (08:32)
[2025-02-18] MEDS: ATORVASTATIN 40 MG TABLET 80 MG PO (08:32)
[2025-02-18] MEDS: ACETAMINOPHEN 325 MG TABLET PO (08:37)
[2025-02-18] MEDS: BACLOFEN 10 MG TABLET PO (08:37)
[2025-02-18] MEDS: GABAPENTIN 300 MG CAPSULE PO (08:41)
[2025-02-18 12:00] VITALS: PULSE 62
--- NOTE | 2025-02-18 13:43 | PM.DS ---
DS: Admitting Diagnosis Discharge Date 02/18/25 Admitting Diagnosis Pyelonephritis DS: Discharge Diagnosis Discharge Diagnosis (1) Fever: Code(s): R50.9 - Fever, unspecified Status: Acute Assessment and Plan: Resulting from pyelonephritis Urine culture grows mixed genital michelle Blood culture grows E coli Continue IV Levaquin today Will changed over Levaquin tomorrow per ID pharmacist recommendation Improving, will continue current treatment. (2) Pulmonary vascular congestion: Code(s): R09.89 - Other specified symptoms and signs involving the circulatory and respiratory systems Status: Acute Assessment and Plan: -CXR with significant findings of pulmonary vascular congestion and small pleural effusion -BNP 404 - give fluids sparingly Improving,will continue current treatment. (3) Metabolic acidosis: Code(s): E87.20 - Acidosis, unspecified Status: Acute Assessment and Plan: -Urine ketones noted with anion gap of 13 -Normal blood sugar -give fluids sparingly Resolved (4) Diabetes mellitus: Code(s): E11.9 - Type 2 diabetes mellitus without complications Status: Acute Assessment and Plan: -Previously very uncontrolled and led to left BKA -restart home insulin -Consider holding Farxiga/Jardiance if Beta-hydroxybutyrate is elevated Getting better, will continue current treatment (5) Hx of left BKA: Code(s): Z89.512 - Acquired absence of left leg below knee Status: Acute Assessment and Plan: -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 diabetes -Chronic wounds present on right lower extremity, follows with [facility] wound care (6) Thrombocytopenia: Code(s): D69.6 - Thrombocytopenia, unspecified Status: Acute Assessment and Plan: Platelets is trending up, bleed 83 today Will monitor closely. Heme consult. Plan Urine retention Scant hydronephrosis Continue tamsulosin management per Urologist sinus bradycardia Hold metoprolol p.o. History DVT Hold Xarelto because of thrombocytopenia bipolar - on aripiprazole HTN - on norvasc PAD- hold plavix ago thrombocytopenia chronic pain - on baclofen BKA clean stump DS: Summary Hospital Course Hospital Course: patient presented with c/o urinary retention, was seen by the urologist and started patient on tamsulosin, and recommended to discharge home, RTC to urology clinic in 2-3 week for reassessment if the medication is helping. patient is clinically stable will discharge home today without [place]. Time Spent with Patient Time attestation: Total time spent providing and/or coordinating discharge services: Exam Narrative: GENERAL: Obese, left BKA, wounds right leg chronic old wound ENT:? Mucous membranes dry despite drinking fluids well today CHEST: Clear to auscultation.? No respiratory distress. HEART: Regular rate and rhythm. ? Normal peripheral pulses. ABDOMEN: Soft, nontender, nondistended. EXTREMITIES: Left BKA, right leg with multiple chronic wounds, no drainage or erythema SKIN: Warm dry normal color NEURO: Alert and oriented x3. Bilateral upper extremity gross tremors which patient states is chronic PSYCH: Normal mood and affect DS: Data Data Completed and Pending Labs on day of discharge: Labs from last 24 hours 02/18/25 02/18/25 02/18/25 12:03 07:57 05:49 WBC 5.6 RBC 3.46 L Hgb 9.6 L Hct 31.1 L MCV 89.9 MCH 27.7 MCHC 30.9 L RDW 14.7 H Plt Count 96 L MPV 10.6 H Immature Gran % (Auto) 0.7 H Neut % (Auto) 52.2 Lymph % (Auto) 30.7 [place] % (Auto) 8.3 Eos % (Auto) 7.4 H Baso % (Auto) 0.7 Lymph # (Auto) 1.73 [place] # (Auto) 0.5 Eos # (Auto) 0.4 H Baso # (Auto) 0.0 Abs Immat Gran (auto) 0.04 H Absolute Neuts (auto) 2.9 Absolute Nucleated RBC 0.000 Nucleated RBC % 0.0 % Immature Plt Fraction 1.9 Sodium 137 Potassium 4.4 Chloride 109 H Carbon Dioxide 23 Anion Gap 5 BUN 31 H Creatinine 1.06 H Estim Creat Clear Calc 75 Estimated GFR 52 L Glucose 133 H POC Capillary Glucose 191 H 154 H Calcium 9.2 Magnesium 2.1 Total Bilirubin 0.4 AST 33 ALT 56 H Alkaline Phosphatase 127 H Total Protein 6.0 L Albumin 3.1 L Direct Plt-Bound IgG Ab Pending 02/17/25 02/17/25 21:11 17:03 WBC RBC Hgb Hct MCV MCH MCHC RDW Plt Count MPV Immature Gran % (Auto) Neut % (Auto) Lymph % (Auto) [place] % (Auto) Eos % (Auto) Baso % (Auto) Lymph # (Auto) [place] # (Auto) Eos # (Auto) Baso # (Auto) Abs Immat Gran (auto) Absolute Neuts (auto) Absolute Nucleated RBC Nucleated RBC % % Immature Plt Fraction Sodium Potassium Chloride Carbon Dioxide Anion Gap BUN Creatinine Estim Creat Clear Calc Estimated GFR Glucose POC Capillary Glucose 127 H 146 H Calcium Magnesium Total Bilirubin AST ALT Alkaline Phosphatase Total Protein Albumin Direct Plt-Bound IgG Ab Discharge Plan Discharge Attending physician on discharge: Antione Deras Consulting providers: Oscar Sigala; Colton Arias; Jillian Marrero; Homer Patrick; Riley Sullivan; Bk Nunez; Jayne Green; Arpit Valerio; Jamey Guillen; Rola Bonilla; Damien Gee; Rocky Simpson Discharging Clinician: Dandre Lopez Patient Disposition: Home with Home Health Service Activity: as tolerated Discharge Instructions: Per Care Coordination: [facility] will resume services at discharge. [facility] will follow for daycare provider. [facility] can be contacted at [phone]. Nursing please fax discharge paperwork to [phone] patient to follow up with her primary care provider as soon as possible, patient is instructed if any symptoms redevelop to go to nearest ER. Patient Instructions: Tamsulosin (By mouth), Clopidogrel (By mouth) Patient Language: [place]ib[place]ian Stand Alone Forms: General Discharge Information Follow-up/Referrals: Robin,MD Soy [Primary Care Provider] - Jillian Marrero APRN [Advanced Practice Nurse] - 2 Weeks Discharge Medications: New polyethylene glycol 3350 [Miralax] 17 gram Powder In Packet 17 g PO QAM PRN (Reason: Constipation) Qty: 30 0RF sennosides-docusate sodium [Senokot-S] 8.6-50 mg Tablet 2 tab PO BID Qty: 60 0RF tamsulosin 0.4 mg Capsule 0.4 mg PO HS Qty: 30 0RF Continued atorvastatin 80 mg tablet 80 mg PO DAILY clopidogrel 75 mg tablet 75 mg PO DAILY baclofen 10 mg tablet 10 mg PO TID PRN (Reason: muscle spasm) Patient Comments: it is not prn she takes 0900,1400,2100 amlodipine 10 mg tablet 10 mg PO DAILY hydralazine 50 mg tablet 50 mg PO 0900,1400,2100 ezetimibe 10 mg tablet 10 mg PO DAILY aripiprazole 10 mg tablet 10 mg PO DAILY duloxetine 60 mg capsule,delayed release(DR/EC) 60 mg PO QAM dapagliflozin propanediol [Farxiga] 10 mg tablet 10 mg PO DAILY acetaminophen 325 mg tablet 325 mg PO 0900,1399,2099 aspirin [Adult Low Dose Aspirin] 81 mg tablet,delayed release (DR/EC) 81 mg PO DAILY calcium carbonate [Super Calcium] 600 mg calcium (1,500 mg) tablet 600 mg PO DAILY cholecalciferol (vitamin D3) [Vitamin D3] 50 mcg (2,000 unit) capsule 2,000 unit PO DAILY gabapentin 300 mg capsule 300 mg PO 0900,1399,2099 lamotrigine 100 mg tablet 100 mg PO Q12H losartan 100 mg tablet 100 mg PO DAILY metoprolol tartrate 50 mg tablet 50 mg PO Q12H melatonin 5 mg tablet 5 mg PO HS rivaroxaban [Xarelto] 2.5 mg tablet 2.5 mg PO Q12H multivitamin [Daily Multi-Vitamin] Tablet 1 tablet PO DAILY ascorbic acid (vitamin C) [C-500] 500 mg tablet 500 mg PO DAILY insulin aspart U-100 [Novolog FlexPen U-100 Insulin] 100 unit/mL (3 mL) insulin pen 20 unit SUBCUT TIDWM Soliqua 100/33 100 unit-33 mcg/mL insulin pen 45 unit subcut Q12H Date of admission: 02/14/25 14:09 Primary Care Provider: TcSoy Admitting Provider: Antione Deras Attending physician on admission: Dandre Lopez Condition: Stable
[2025-02-18 13:45] VITALS: BP 151/53; PULSE 66; RESP 16; TEMP 36.1; O2SAT 96
--- NOTE | 2025-02-18 14:25 | PC.NURSE ---
On 02/18/25, the TANK CALIBRATOR, Vania Gottlieb, provided care and completed [place] documentation on this patient. I have reviewed the TANK CALIBRATOR's documentation and agree with the findings.Patient refused 1400 meds.
[2025-02-18 22:38] LABS: Platelet Ab,Indirect (IgA) NEGATIVE (NEGATIVE); Platelet Ab,Indirect (IgG) NEGATIVE (NEGATIVE); Platelet Ab,Indirect (IgM) NEGATIVE (NEGATIVE)
== END 2025-02-18 14:25 | disposition home health service (06) | DRG 690 ==
LOC: ANHED 20:55 → ANH3MEDSUR 22:20
PROVIDERS: Family Medicine; Internal Medicine Hematology & Oncology; Nurse Practitioner; Admitting Provider Internal Medicine; Emergency Provider Emergency Medicine; PCP Internal Medicine; Visit Provider Family Medicine
DX: N10 Acute pyelonephritis (principal); R78.81 Bacteremia; L97.919 Non-pressure chronic ulcer of unspecified part of right lower leg with unspecified severity; E87.1 Hypo-osmolality and hyponatremia; E87.20 Acidosis, unspecified; E87.4 Mixed disorder of acid-base balance; N20.0 Calculus of kidney; D69.59 Other secondary thrombocytopenia; E11.622 Type 2 diabetes mellitus with other skin ulcer; R33.9 Retention of urine, unspecified; E11.65 Type 2 diabetes mellitus with hyperglycemia; B96.20 Unspecified Escherichia coli [E. coli] as the cause of diseases classified elsewhere; I10 Essential (primary) hypertension; F31.9 Bipolar disorder, unspecified; Z79.82 Long term (current) use of aspirin; Z79.02 Long term (current) use of antithrombotics/antiplatelets; Z72.0 Tobacco use; Z89.512 Acquired absence of left leg below knee
CPT/HCPCS: 36415; 36600; 71045; 74176; 76700; 76775; 80048; 80053; 81001; 82010; 82375; 82607; 82805; 82948; 83036; 83050; 83540; 83550; 83605; 83735; 83880; 84145; 85018; 85025; 85027; 85055; 85610; 85730; 86022; 86023; 86140; 87040; 87086; 87186; 93005; 96365; 96366; 96372; 96375; 99285; A9270; C8929; G0378; J1650; J1756; J1815; J1885; J1956; J7050; J7120; Q9957

== ENCOUNTER 2025-03-13 10:43 | Outpatient (CLI) | payer MEDICARE, SELFPAY ==
--- NOTE | ~2025-03-13 | XR_ITS ---
EXAM/ PROCEDURE: XR hand LT min 3V - 03/13/2025 11:06 CDT HISTORY: 69 years old Female with Left hand pain. COMPARISON: None available TECHNIQUE: 5 view(s) FINDINGS/ IMPRESSION: There are no fractures or dislocations.Joint space narrowing, subchondral sclerosis, subchondral cyst formation and osteophyte formation, compatible with mild osteoarthritis. Reviewed, dictated and finalized at location A.
--- OUTSIDE RECORDS SUMMARY | 2025-03-13 10:49 | XMS_ITS ---
Author Name VASYL FRAUSTO, MS. WILLIAN Fox CASTRO Address [address] [place] [address] Phone [phone] Organization [facility] Care Team Providers Care Employee Adviser Name Role Phone WILLIAN FALLON Unavailable [phone] Reason for Referral Not Available Allergies, adverse reactions, alerts Allergen Type Reaction Severity Status Onset Date Adhesive Tape Allergy to substance (disorder) Unknown Active N/A Latex Allergy to substance (disorder) Unknown Active N/A Carbidopa-Levodopa Allergy to substance (disorder) Unknown Active N/A History of medication use Medication Class Instructions Start Date End Date BD Ultra-Fine Short Pen Needle 31 gauge x 5/16 USE TO INJECT INSULIN THREE TIMES DAILY 2023-10-26 2025-03-01 hydrALAZINE 50 mg Tab TAKE 1 TABLET BY M OUTH THREE TIMES DAILY 2024-09-17 No Data Available Farxiga 10 mg Tab TAKE ONE TABLET BY M OUTH (10 MG TOTAL) BY MOUTH DAILY 2024-04-04 No Data Available Clopidogrel Bisulfate 75 mg Tab TAKE 1 TABLET BY MOUTH ONCE DAILY 2024-09-17 No Data Available NovoLOG FlexPen 100 UNIT/ML Solution Pen-injector Subcutaneous INJECT 20 UNITS UNDER THE SKIN THREE TIMES DAILY BEFORE MEALS 2024-03-19 No Data Available Xarelto 2.5 mg Tab TAKE ONE TABLET (2.5 MG TOTAL) BY MOUTH TWICE DAILY 2024-07-04 No Data Available amLODIPine Besylate 10 mg Tab TAKE ONE TABLET BY MOUTH DAILY 2024-04-04 No Data Available Atorvastatin Calcium 80 mg Tab TAKE ONE TABLET (80MG TOTAL) BY MOUTH DAILY 2024-04-04 No Data Available Carbidopa-Levodopa 10/100 mg Tab TAKE ONE TABLET BY MOUTH THREE TIMES DAILY 2024-04-04 2025-03-01 Losartan Potassium 100 mg Tab TAKE ONE TABLET BY MOUTH DAILY AT 9AM 2024-04-05 No Data Available Ezetimibe 10 mg Tab TAKE 1 TABLET BY MAICOL TH ONCE DAILY 2024-04-04 No Data Available Metoprolol Tartrate 50 mg Tab TAKE ONE TABLET (50MG TOTAL) BY MOUTH TWICE DAILY 2024-07-04 2025-03-01 DULoxetine 60 mg Cap delayed rel TAKE ONE CAPSULE BY MOUTH DAILY IN THE MORNING 90 DAYS 2024-10-10 No Data Available ARIPiprazole 10 mg Tab TAKE ONE TABLET B Y MOUTH ONCE DAILY 90 DAYS 2024-10-04 No Data Available lamoTRIgine 100 mg Tab TAKE ONE TABLET B Y MOUTH TWICE DAILY 90 DAYS 2024-10-10 No Data Available Gabapentin 300 mg Cap TAKE 1 CAPSULE BY MOUTH THREE TIMES DAILY 2024-11-07 No Data Available prednisoLONE Acetate 1 % Suspension INSTILL 1 DROP INTO SURGICAL EYE 3 TIMES DAILY STARTING AFTER SURGERY AND CONTINUING FOR 3 WEEKS 2025-01-14 2025-03-01 Ofloxacin 0.3 % Solution INSTILL 1 DROP 3 TIMES DAILY INTO SURGICAL EYE STARTING 2 DAYS PRIOR TO SURGERY CONTINUING FOR 1 WEEK AFTER SURGERY 2025-01-14 2025-03-01 Ketorolac Tromethamine 0.5 % Solution INSTILL 1 DROP INTO THE SURGICAL EYE 3 TIMES DAILY STARTING 2 DAYS PRIOR TO SURGERY AND CONTINUING FOR 2 WEEKS AFTER 2025-01-14 2025-03-01 Tamsulosin 0.4 mg Cap TAKE 1 CAPSULE BY MOUTH AT BEDTIME 2025-02-18 No Data Available Embecta Pen Needle Ultrafine 31G X 8 MM Miscellaneous No Data Available 2025-02-25 No Data Availab le Aspirin EC 81 mg Tab delayed rel 1 tab po daily 2025-03-01 No Data Available Calcium 600 1500 (600 Ca) MG Tab 1 tablet orally daily 2025-03-01 No Data Available Tylenol 325 mg Tab 2 tablets orally deo ry 8 hours 2025-03-01 No Data Available Melatonin 5 mg Cap 1 capsule orally daily 2025-03-01 No Data Available Soliqua 100-33 UNT-MCG/ML Solution Pen-injector Subcutaneous 45 units subcutaneously 2 times daily 2025-03-01 No Data Available Vitamin D3 50 MCG (2000 UT) Cap 1 capsule orally daily 2025-03-01 No Data Available True Vitamin B12 500 MCG Tab 1 tablet orally daily 12-26-11 No Data Available Baclofen 10 mg Tab 1 tablet orally 3 ti mes per day 2025-03-01 No Data Available Lactulose 10 GM Packet 1 packet orally 2 times per day 2025-03-01 2025-03-01 Union 5 mg-325 mg tablet 1 tab q8 hrs prn 2025-03-01 No Data Available Lidocaine 5 % Patch 1 patch topically to affected area every 12 hours 2025-03-01 No Data Available Lidocaine 5 % Patch 1 patch topically to affected area every 12 hours 2025-03-01 No Data Available Zinc Oxide 25 % Paste 1 application as n eeded to prevent skin breakdown 2025-03-01 No Data Available Problem List Problem Status Onset Date Resolved Date Synopsis Tobacco use disorder Active 2025-03-01 N/A N/A Anemia Active 2025-03-01 N/A N/A Thrombocytopenia Active 2025-03-01 N/A N/A Spinal stenosis, lumbar milton on with neurogenic claudication Active 2025-03-01 N/A N/A Mixed action and resting tremor Active 2025-03-01 N/A N/A PAD (peripheral artery disease) with stent placement Active 2025-03-01 N/A N/ A T2DM (type 2 diabetes mellitus) Active 2025-03-01 N/A per endo 01/12 - controlled, continue Soliqua 100/33- 20 and 45 units, lispro 20 units tid before meals, farxiga 10 mg daily CKD stage 3b, GFR 30-44 ml/min Active 2025-03-01 N/A 11/12 - eGFR 39, uACR 180 Bipolar 1 disorder Active 2025-03-01 N/A N/A Status post below-knee amputation of left lower extremity - unable to get prosthesis due to chronic wound Active 2025-03-01 N/A N/A Diabetic ulcer of morrison - left Active 2025-03-01 N/A N/A Chronic constipation Active 2025-03-01 N/A / 4 - likely due to immobility and narcotic use. Continue current aggressive bowel regimen including bisacodyl 10 mg daily, lactulose 10 g b.i.d., MiraLax b.i.d., p.r.n. 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 Active 2025-03-01 N/A N/A HLD (hyperlipidemia) Active 2025-03-01 N/A N/A Diabetic neuropathy Active 2025-03-01 N/A N/A Urinary retention Active 2025-03-01 N/A N/A Alcohol use disorder Active 2025-03-01 N/A N/A Unstable angina Active 2025-03-01 N/A N/A Encounters Encounters Type Facility Date of Service Diagnosis/Co mplaint [facility] 7 Day Disch [facility], [place], [facility] 03/01/2025 Sepsis, unspecified organismEncntr for f/u exam aft trtmt for cond oth than malig neoplm [facility] 7 Day Disch [place], [place], PC 03/01/2025 Sepsis, unspecified organismEncntr for f/u exam aft trtmt for cond oth than malig neoplm [facility] 7 Day Disch [place], 03/01/2025 Sepsis, unspecified organismEncntr for f/u exam aft trtmt for cond oth than malig neoplm [facility] 7 Day Disch [facility], [place], [facility] 03/01/2025 Sepsis, unspecified organismEncntr for f/u exam aft trtmt for cond oth than malig neoplm [facility] 7 Day Disch [place], [place], [facility] 03/01/2025 Sepsis, unspecified organismEncntr for f/u exam aft trtmt for cond oth than malig neoplm Vital Signs Date of Collection Vitals 2025-03-01 10:02:35 BP Diastolic - 70.0 mm[Hg]BP Systolic - 160.0 mm[Hg]Pain Scale - 5.0 {score} Social History Sex Female History of Procedures Procedures Service Procedure code Service date Servicing provider Phone# Transitional [facility] 7 Day Disch [id number] 2025-03-01 No Data Available No Data Avail able Medrec Completed within 30 Days of Discharge 1111F 2025-03-01 No Data Available No Data Availa ble Pain Assessment - Pain Documented 1125F 2025-03-01 No Data Available No Data Availa ble Systolic BP Greater Than or Equal to 140 MMHG (Not Controlled) 3077F 2025-03-01 No Data Available No Data Available Diastolic BP Less Than 80 MMHG (Controlled) 3078F 2025-03-01 No Data Available No Data Availa ble Functional Status No Information Mental Status No Information Assessments Date of Service Assessments 2025-03-01 10:02:35 Sepsis, unspecified organismType 2 diabetes mellitusHypertensionAcute back painUrinary incontinence Plan of Care Date of Service Plans 2025-03-01 10:02:35 F/u with urology and PCP as plannedRN follow up needs: gave pt/sister the number for [employer] CM to discuss additional caregiver support, etc.F/u with endo as planneduncontrolled; recommended that she contact cardiology re: med adjustment, since next PCP appt is in em[place] likely [facility], ?2/2 immobility. Rxd lidocaine 5% patch; f/u with PCP as plannedrxd barrier cream as requested; may not be covered. F/u with urology as planned Goals Date Goal 2025-03-01 Provider recommendat ions and precautions reviewed with patient/caregiver. They have been advised to call the urgent care number provided for any concerning symptoms or signs that arise prior to 03/20/25. Patient/caregiver expressed understanding and agreement with the plan. Health Concerns Date Concern 2025-03-01 [employer] access ends: 0 5Can patient text? Yes, but prefers phone calls. Plan name: [employer] Medicare Gold Advantage (HMO-POS) 2025-03-01 Visit modality:Phone visit 2025-03-01 Transitions of Care Visit:The patient name and date of were confirmed.The patient/caregiver consented to a PRIYANKA/PD visit with Sharif. The patient was present at the time of the visit. Pt spoke with: Ana Jordan NPPresent during call: sister Georgia gill preferred language: EnglishTime spent with patient: xx minutesHPI: Pt is a 69 yo F . 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 Treated and discharged to home where she lives alone; has support from caregivers (day/evening) sister, and mom. She is non-ambulatory due to BKA, transfers from bed to wheelchair in a Brenda lift, spends day in the wheelchair. Urinates in a female urinal or diapers; BM in bedpan. She does not see well due to cataracts; sister manages her meds. Has home health RN once a week. She has been feeling better, but notes new pain in bilateral mid and lower back since getting home from the hospital. Also has pain in R anterior hip since before the hospitalization, and pain from her chronic wounds. No fever, chills, CP, SOB, n/v, abd pain, dysuria, diarrhea, constipation. Pain in back and hip is managed with pain pill (takes Union occasionally, used to be followed by pain management for chronic back pain), OTC pain patch, rest. She saw cardiology last week, they d/c'd metoprolol due to overnight hypotension. She is seeing a new computer terminal operator on 03/03. She sees urology on 03/06. She continues to see wound care regularly. She sees PCP in April. Wears a CGM; states BG has been well controlled (did not provide readings). States BP was 160/70 when checked by home health cna (after metoprolol was discontinued). Does not know heart rate. She would like rx for lidocaine patch and triple paste barrier cream. 2025-03-01 Type of Visit: IPAdm ission date: 02/14/2025Discharge date: 02/18/2025?Hospital: [facility] Description: Sepsis, unspecified organism 2025-03-01 Discharge summary un available
--- OUTSIDE RECORDS SUMMARY | 2025-03-13 10:49 | XMS_ITS | Encounter Summary ---
Author Organization [facility] Healthcare Address [address] [place] [address] Care Team Providers Care Clinical Veterinarian Name Role Phone José Verduzco DPM Unavailable [phone] Anup Mayo MD Unavailable [phone] Tha Arzate MD Unavailable Salinas Hawkins MD Unavailable [phone] Lula Lafleur RN Unavailable [phone] Hu Bruno MD Unavailable [phone] Elyse Young CNM Unavailable Burton Akhtar MD Primary Care Provider Encounter Details Date Type Department Care Team (Late st Contact Info) Description 03/12/2025 10:00 AM CDT Orders Only [facility] [address] [place] [address] Social History Tobacco Use Types Packs/Day Years Used Date Smoking Tobacco: Some Days Cigarettes Last attempted to quit: 1957 Smokeless Tobacco: Never Comments:Julien july 2022 Alcohol Use Standard Drinks/Week Comments No 0 (1 standard drink = 0.6 oz pur e alcohol) occasional OASIS D0700: Social Isolation Answer Da te Recorded Frequency of experiencing loneliness or isolatio n Never 05/02/2023 OASIS A1250: Transportation Answer Date Recorded Lack of Transportation (Medical) No 05/02/2023 Lack of Transportation (Non-Medical) No 05/02/2023 Patient Unable or Declines to Respond No 05/02/2023 OASIS B1300: Health Literacy Answer Salomon e Recorded Frequency of needing help to read materials from doctor or pharmacy Never 05/02/2023 [facility] Utilities Answer Date Recorded In the past 12 months has th e electric, gas, oil, or water company threatened to shut off services in your home? No 08/23/2024 Social Connection and Isolation Panel [NHANES] A nswer Date Recorded In a typical week, how many times do you talk on the phone with family, friends, or neighbors? Twice a week 08/23/2024 How often do you get together with friends or re latives? Once a week 08/23/2024 How often do you attend presybeterian or buddhism serv ices? Never 08/23/2024 Do you belong to any clubs o r organizations such as presybeterian groups, unions, fraternal or athletic groups, or school groups? No 08/23/2024 How often do you attend meet ings of the clubs or organizations you belong to? Never 08/23/2024 Are you , , di vorced, , never , or living with a partner? 08/23/2024 AUDIT-C Answer Date Recorded Q1: How often do you have a drink containing alc ohol? Monthly or less 08/23/2024 Q2: How many drinks containi ng alcohol do you have on a typical day when you are drinking? 1 or 2 08/23/2024 Q3: How often do you have si x or more drinks on one occasion? Never 08/23/2024 Overall Financial Resource Strain (CARDIA) Answe r Date Recorded How hard is it for you to pa y for the very basics like food, housing, medical care, and heating? Not hard at all 08/23/2024 PHQ-2 Answer Date Recorded PHQ-2 Total Score (If total score is 3 or more points, staff should administer the PHQ-9) 0 01/10/2025 Hunger Vital Sign Answer Date Recorded Within the past 12 months, y ou worried that your food would run out before you got the money to buy more. Never true 08/23/19 25 Within the past 12 months, t he food you bought just didn't last and you didn't have money to get more. Never true 08/23/2024 PRAPARE - Transportation Answer Date Re corded In the past 12 months, has l ack of transportation kept you from medical appointments or from getting medications? No 10/2024 In the past 12 months, has l ack of transportation kept you from meetings, work, or from getting things needed for daily living? No 08/23/2024 Housing Stability Vital Sign Answer Salomon e Recorded In the last 12 months, was t here a time when you were not able to pay the mortgage or rent on time? No 07/01/2022 Number of Places Lived in the Last Year Not on f ile 07/01/2022 In the last 12 months, was t here a time when you did not have a steady place to sleep or slept in a chcf (including now)? No 07/01/2022 PHQ-9 Answer Date Recorded PHQ-9 Total Score 3 04/26/2024 Housing Stability Vital Sign Answer Salomon e Recorded In the last 12 months, was t here a time when you were not able to pay the mortgage or rent on time? No 08/23/2024 In the past 12 months, how m any times have you moved where you were living? 0 08/23/2024 At any time in the past 12 m onths, were you homeless or living in a chcf (including now)? No 08/23/2024 Personal Safety Answer Date Recorded Have you ever been in or are you currently in a harmful physical or emotional relationship or is someone making you feel afraid or unsafe? Denies 08/23/2024 Education Answer Date Recorded What is the highest level of school you have completed or the highest degree you have received? 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 Author PRIYANKA General Goal - Patient / caregiver verbalizes lifestyle changes necessary to meet self-care needs and executes self-care activities to utmost capability ACO Care Management On track(2024 10:05 AM CDT) Lula Barber, JES Note: Problem: At Risk for Self Care Deficit Interventions: - Assess patient's level of dependence on others along with current level of assistance being provided. - Use motivational interviewing to help guide the patient in accepting the needed amount of assisstance, as applicable. - Contact caregiver and assess their involvement with patient and level of assistance provided, as appropriate. - Assess appropriateness for Home Health. Start referral process if skilled need is present. - Encourage independent ADL's as appropriate. Ensure patient has the appropriate tools at home to be as independent as possible. - Provide fall prevention education to patient and caregiver. - Evaluate need for assistive devices. - Refer to SW if appropriate and patient is agreeable. PRIYANKA General Goal - Patient is knowledgeable about condition when worsening and how to respond ACO Care Management On track(2024 10:05 AM CDT) Lula Barber, RN Note: Problem: Knowledge deficit related to signs and symptoms of worsening condition Interventions: - Assess patient's level of understanding related to their condition(s), specific medications and self-management of their chronic conditions. - Send educational materials to patient related to their chronic condition, including signs and symptoms, self-management actions, and serious symptoms that require urgent medical intervention. - Assist patient/provider in developing an action plan for symptom management. - Review with patient weekly: s/s worsening condition, self-management actions to take, when to call CM or provider. documented as of this encounter Visit Diagnoses Not on filedocumented in this encounter Additional Health Concerns Infection Onset Date Last Indicated Resolved Time CRE Comment:Contact Precautions (gown and gloves) JES De La Cruz 01/04/23 07/08/2022 07/13/2022 documented as of this encounter Care Teams Clinical Veterinarian Relationship Specialty Start Date End Date Burton Akhtar MD [address] [facility] [address] [place] [address] PCP - General Family Medicine 01/28/25 José Verduzco DPM [id number] [place] [address] Consulting Physician Foot and Ankle Surg 07/26/22 Anup Mayo MD [address] [address] [place] [address] Endocrinology Diabetes & Metabolism 07/26/22 Tha Arzate MD [address] [facility] [address] [place] [address] Consulting Physician Cardiovascular Disease 07/26/22 Salinas Hawkins MD [address] [facility] [address] [place] [address] Surgeon General Surgery 09/09/22 Lula Lafleur RN [address] [place] [address] [address] [place] [address] Derrick Boat Leverman 07/19/24 Hu Bruno MD [address] [facility] [address] [place] [address] Consulting Physician Vascular Surgery 08/27/24 Elyse Young CNM [address] [place], [place] [id number] Nurse Practitioner Psychiatry 01/10/25 documented as of this encounter
--- OUTSIDE RECORDS SUMMARY | 2025-03-13 10:49 | XMS_ITS | Encounter Summary ---
Author Organization [facility] Healthcare Address [address] [place] [address] Care Team Providers Care Rotating Equipment Engineer Name Role Phone José Verduzco DPM Unavailable [phone] Anup Mayo MD Unavailable [phone] Tha Arzate MD Unavailable Salinas Hawkins MD Unavailable [phone] Lula Lafleur RN Unavailable Hu Bruno MD Unavailable Elyse Young CNM Unavailable [phone] Burton Akhtar MD Primary Care Provider Reason for Visit * Reason Onset Date Comments Medical Question/Miscellaneous 03/09/2025 Encounter Details Date Type Department Care Team (Late st Contact Info) Description 03/09/2025 Results Follow-Up [facility] Primary Care at [address] [address] Burton Akhtar MD [address] [place] [address] [address] [place] [address] Thyroid Function [place], Hemoglobin A1c, Lipid panel, Additional followed-up results: 4 Social History Tobacco Use Types Packs/Day Years [...] materials from doctor or pharmacy Never 05/02/2023 [facility] Utilities Answer Date Recorded In the past 12 months has e electric, gas, oil, or water company [...] week 08/23/2024 How often do you attend pentecostalism or buddhist serv ices? 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 Akhtar's results/recommendations, patient understood. Does message need to be routed? Yes-FYI Only * Result Encounter Note - Burton Akhtar MD - 03/09/2025 11:34 PM CDT Have results show good cholesterol levels was well-controlled diabetes, good improvement in your anemia which is very encouraging as well as platelet count. Good improvement in your kidney function as well with normal thyroid function and electrolytes. Overall encouraging results so keep it up. Theonly area that I can see that needs to be improvement is your triglyceride level which I recommend that you start taking [id number] omega-3/fish oil supplements which can help lower this. documented in this encounter Plan of Treatment Not on file documented as of this encounter Goals Goal Patient Goal Type Associated Problems Recent Progress Patient-Stated? Author PRIYANKA General Goal - Patient / caregiver verbalizes lifestyle changes necessary to meet self-care needs and executes self-care activities to utmost capability ACO Care Management On track(2024 10:05 AM CDT) No Lula Lafleur, JES Note: Problem: At Risk for Self [...] Management On track(2024 10:05 AM CDT) Lula Barber RN Note: Problem: Knowledge deficit related to [...] documented as of this encounter Care Teams Rotating Equipment Engineer Relationship Specialty Start Date End Date Burton Akhtar MD [address] [facility] [address] [place] [address] PCP - General Family Medicine 01/28/25 José Verduzco DPM [id number] [place] [address] Consulting Physician Foot and Ankle Surg 07/26/22 Anup Mayo MD [facility] [facility] [address] [place] [address] Endocrinology Diabetes & Metabolism 07/26/22 Tha Arzate MD [address] [facility] [address] [place] [address] Consulting Physician Cardiovascular Disease 07/26/22 Salinas Hawkins MD [address] [facility] [address] [place] [address] Surgeon General Surgery 09/09/22 Lula Lafleur, JES [address] [place] [address] [address] [place] [address] Materials Technician 07/19/24 Hu Bruno MD [address] [facility] [address] [place] [address] Consulting Physician Vascular Surgery 08/27/24 Elyse Young CNM [address] [place] [address] Nurse Practitioner Psychiatry 01/10/25 documented as of this encounter
--- OUTSIDE RECORDS SUMMARY | 2025-03-13 10:49 | XMS_ITS | Clinical Summary ---
Author Organization [facility] Address [address] [place] [address] Care Team Providers Care Senior Bioinformatics Specialist Name Role Phone Stefan Frost MD Primary Care Provider [phone] Source Comments [facility],non-owned Affiliates and Associated Physician Practices is [facility] organization consisting of ambulatory clinics and hospital sitesin [place], [place], [place] and [place]. This disclosure is being madepursuant to the Care Everywhere program and may not contain all information available regarding this patient. Last updated 18.[facility] Allergies No known active allergies Medications * Be aware that medications may not be up to date on this document. Alwaysverify current medications with the patient. cyclobenzaprine (FLEXERIL) 10 MG tablet 3 times daily. Active DULoxetine (CYMBALTA) 60 MG capsule once daily. Active metoprolol tartrate IR (LOPRESSOR) 100 MG tablet 2 times daily. Active metFORMIN (GLUCOPHAGE) 500 MG tablet 2 times daily. Active glimepiride (AMARYL) 1 MG tablet once daily. Active oxycodone-acetam inophen (PERCOCET) 5-325 MG tablet every 6 hours as needed. Active Active Problems Problem Noted Date Diagnosed Date HTN (hypertension) 08/31/2012 Diabetes mellitus type II, uncontrolled 08/31/19 13 Overview (08/31/2012): Per Dr. Dang's demographic sheet sent with pt on 08/29/2012 visit. Hyperlipidemia 08/31/2012 Displacement of lumbar inter vertebral disc without myelopathy 08/31/2012 Degeneration of lumbar or lumbosacral interverte bral disc 08/31/2012 Spinal stenosis, lumbar milton on, without neurogenic claudication 08/31/2012 Social History Tobacco Use Types Packs/Day Years Used Date Smoking Tobacco: Every Day Cigarettes Alcohol Use Standard Drinks/Week Comments Not Asked 0 (1 standard drink = 0.6 oz pur e alcohol) Comments Unknown Sex and Gender Information Value Date Recorded Sex Assigned at Not on file Legal Sex Female 6:17 AM PERIODONTIST Gender Identity Not on file Sexual Orientation Not on file Last Filed Vital Signs Vital Sign Reading Time Taken Comments Blood Pressure 118/82 08/31/2012 10:14 AM PERIODONTIST Pulse - - Temperature - - Respiratory Rate - - Oxygen Saturation - - Inhaled Oxygen Concentration - - Weight 169.2 kg (373 lb) 08/31/2012 10:14 AM PERIODONTIST Height 188 cm (6' 2) 08/31/2012 10:14 AM PERIODONTIST Body Mass Index 47.89 08/31/2012 10:14 AM PERIODONTIST Plan of Treatment Health Maintenance Due Date Last Done Comments BONE DENSITY TESTING 1957 COLOGUARD (AGES 45-75) - COL ON CA SCREENING 1957 COLON MONITORING 1957 COLONOSCOPY - COLON CA SCREENING 1957 CT COLONOGRAPHY - COLON CA SCREENING 1957 Colorectal Cancer Screening 1957 FIT - COLON CA SCREENING 1957 FLEX SIG - COLON CA SCREENING 1957 LIPID TESTING 1957 MAMMOGRAM 1957 MEDICARE AWV 12 MONTHS 1957 HEPATITIS C SCREENING 10/15/1975 DTAP/TDAP/TD VACCINES (1 - Tdap) 1976 PNEUMOCOCCAL VACCINE 50+ (1 of 2 - PCV) 1976 ZOSTER VACCINE (1 of 2) 10/20/2007 Respiratory Syncytial Virus (RSV) Vaccine Pt: or over 60 yrs (1 - Risk 60-74 years 1-dose series) 2017 COVID-19 VACCINE ( - 2023-2 5 season) 2024 DEPRESSION SCREENING 08/21/2024 INFLUENZA VACCINE (#1) 2025 HEPATITIS B VACCINE Aged Out No longe r eligible based on patient's age to complete this topic HIB VACCINE Aged Out No longer eligi ble based on patient's age to complete this topic HPV VACCINE Aged Out No longer eligi ble based on patient's age to complete this topic MENINGOCOCCAL (Group B) VACC INE SHARED DECISION-MAKING Aged Out No longer eligibl e based on patient's age to complete this topic MENINGOCOCCAL GROUPS A/C/Y/W VACCINE Aged Out No longer eligible b ased on patient's age to complete this topic Procedures Procedure Name Priority Date/Time Associated Diagnosis Comments EYE EXAM 05/13/2024 from Last 3 Months or Most Recently Relevant to Health Maintenance Results * EYE EXAM (05/13/2024) Anatomical Region Laterality Modality Other 05/13/2024 Narrative 05/13/2024 Ordered by an unspecified provider. us Scanned Document SCANNING ONLY Final Result from Last 3 Months or Most Recently Relevant to Health Maintenance Insurance MEDICARE Care Teams Senior Bioinformatics Specialist Relationship Specialty Start Date End Date Stefan Frost MD PCP - General Internal Medicine 08/29/12
--- OUTSIDE RECORDS SUMMARY | 2025-03-13 10:49 | XMS_ITS | Clinical Summary ---
Author Organization [facility] Address [address] [place] [address] Care Team Providers Care Shook Machine Operator Name Role Phone José Verduzco DPM Unavailable [phone] Anup Mayo MD Unavailable Tha Arzate MD Unavailable Salinas Hawkins MD Unavailable [phone] Lula Lafleur RN Unavailable [phone] Hu Bruno MD Unavailable [phone] Darren Young CNM Unavailable Burton Akhtar MD Primary Care Provider Allergies Active Allergy Reactions Criticality Noted Date Comments Adhesive Rash High 11/02/2021 Carbidopa-Levodopa Rash Medium 04/18/2024 Latex Rash Medium 05/18/[address] (CYMBALTA) 60 mg capsule Take 1 capsule (60 mg total) by mouth daily before breakfast Active lamoTRIgine (LaMICtal) 100 mg tablet Take 1 tablet (100 mg total) by mouth 2 (two) times a day 018 Active aspirin 81 mg enteric coated tabletIndications :cardiovascular disease Take 1 tablet (81 mg total) by mouth daily 30 tablet 11 022 Active calcium carbonate (CALCIUM 600 ORAL)Indications: Low bone density Take 600 mg of base by mouth daily. Indications: Low bone density 021 Active losartan (COZAAR) 100 mg tablet Take 1 tablet (100 mg total) by mouth daily 023 Active ARIPiprazole (ABILIFY) 10 mg tablet Take 1 tablet (10 mg total) by mouth daily for 90 days 024 Active acetaminophen (TYLENOL) 325 mg tabletIndications :Spinal stenosis of lumbar region with neurogenic claudication Take 2 tablets (650 mg total) by mouth 3 (three) times a day Active melatonin 5 mg tabletIndications :Type 2 diabetes mellitus with diabetic polyneuropathy, with long-term current use of insulin (HCC) Take 1 tablet (5 mg total) by mouth nightly Active tamsulosin (FLOMAX) 0.4 mg extended release capsuleIndication s:Urinary retention Take 1 capsule (0.4 mg total) by mouth nightly 30 capsule Active Additional Information Patient not taking.Reported on 03/03/2025 insulin glargine-lixisena tide (Soliqua 100/33) 100 unit-33 mcg/mL insulin pen Inject 45 Units under the skin daily Active rivaroxaban (XARELTO) 2.5 mg tablet Take 1 tablet (2.5 mg total) by mouth 2 (two) times a day Active cholecalciferol (VITAMIN D-3) 2000 unit tablet Take 1 tablet (2,000 Units total) by mouth daily Active cyanocobalamin (Vitamin B-12) 500 mcg tabletIndications :Prevention of Vitamin B12 Deficiency Take 1 tablet (500 mcg total) by mouth daily Active baclofen (LIORESAL) 10 mg tablet TAKE ONE TABLET (10MG TOTAL) BY MOUTH THREE TIMES DAILY NEEDED FOR MUSCLE SPASMS 30 tablet 025 Active lactulose (CEPHULAC) 10 gram packetIndications :Drug-induced constipation Take 1 packet (10 g total) by mouth 2 (two) times a day 60 packet 2 025 Active clopidogreL (PLAVIX) 75 mg tabletIndications :myocardial infarction prevention,cardio vascular disease Take 1 tablet (75 mg total) by mouth daily 90 tablet 1 025 2025 Active Farxiga 10 mg tabletIndications :Type 2 diabetes mellitus with diabetic polyneuropathy, with long-term current use of insulin ([facility]),Type 2 diabetes mellitus with microalbuminuria, with long-term current use of insulin (HCC),CKD stage 2 due to type 2 diabetes mellitus (HCC) {VIAL] TAKE ONE TABLET (10 MG TOTAL) BY MOUTH DAILY 90 tablet 1 025 Active amLODIPine (NORVASC) 10 mg tabletIndications :Essential hypertension TAKE ONE TABLET (10 MG) BY MOUTH DAILY 90 tablet 11 025 Active NovoLOG 100 unit/mL (3 mL) pen for injection INJECT 60 UNITS UNDER THE SKIN THREE TIMES DAILY BEFORE MEALS 150 mL 3 025 Active atorvastatin (LIPITOR) 80 mg tablet Take 1 tablet (80 mg total) by mouth daily 90 tablet 1 025 Active pen needle, diabetic (Pen Needle) 31 gauge x 5/16 needle Use to inject insulin 3 times daily 300 each 1 025 Active ezetimibe (ZETIA) 10 mg tabletIndications :Mixed diabetic hyperlipidemia associated with type 2 diabetes mellitus (HCC) Take 1 tablet (10 mg total) by mouth daily 90 tablet 3 025 Active hydrALAZINE (APRESOLINE) 50 mg tabletIndications :Hypertension associated with type 2 diabetes mellitus (HCC) TAKE ONE TABLET BY MOUTH THREE TIMES DAILY 300 tablet 1 025 Active gabapentin (NEURONTIN) 300 mg capsuleIndication s:Spinal stenosis of lumbar region with neurogenic claudication TAKE 1 CAPSULE BY MOUTH THREE TIMES DAILY 300 capsule 1 025 Active Gvoke HypoPen 2-Pack 1 mg/0.2 mL auto-injectorIndi cations:patient with diabetes mellitus at risk of hypoglycemia Inject 0.2 mL under the skin as needed (for severe Hypoglycemia) 0.4 mL 3 025 Active metoprolol tartrate (LOPRESSOR) 50 mg immediate release tablet Take 1 tablet (50 mg total) by mouth 2 (two) times a day 2024 Discontinued(P atient Reported) gabapentin (Neurontin) 300 mg capsuleIndication s:Spinal stenosis of lumbar region with neurogenic claudication Take 1 capsule (300 mg total) by mouth 3 (three) times a day 90 capsule 025 2024 Discontinued Active Problems Problem Noted Date Diagnosed Date Stage 3a chronic kidney disease 03/03/2025 Tobacco use disorder 10/28/2024 Overview (01/10/2025): Active smoker Assessment & Plan (02/16/2025 9:28 PM CDT): - chronic condition, not at goal - Current active daily tobacco smoker, discussed importance of tobacco smoking cessation, she has quit several times in her life but has resumed back to smoking. Most recent that she restarted smoking was around July of 2024 - has known PAD, T2DM - she was smoking at least 1/2 pk/day, now smoking about 3-4 cig/day Anemia 08/23/2024 Thrombocytopenia 08/23/2024 Class 2 severe obesity due t o excess calories with serious comorbidity and body mass index (BMI) of 37.0 to 37.9 in adult 08/06/2024 Assessment & Plan (10/28/2024 1:47 AM CDT): Wt Readings from Last 3 Encounters: 08/23/24 133.4 kg (294 lb 1.5 oz) 08/23/24 134.7 kg (297 lb) 06/09/24 (!) 138.4 kg (305 lb 1.6 oz) Body mass index is 37.76 kg/m . - chronic condition, not at goal - BMI Follow-up includes: nutrition counseling, exercise counseling and education provided - Recommend to exercise at least 30 minutes moderate to vigorous exercise most days of the week. (minimum 150 minutes weekly) Assessment & Plan (08/06/2024 8:56 PM CAUSTIC PURIFICATION OPERATOR): - ADA/heart healthy/renal diet Multilevel thoracic spondylosis with myelopathy 08/06/2024 Overview (10/28/2024): Chronic back pain Hx of back surgery Assessment & Plan (10/28/2024 2:17 AM CDT): - Chronic conditipon, persistent - reports hx of back pain since , s/p two back surgeries S/p laminectomy in 1997- and another surgery in 1999 - Spinal stenosis of lumbar region with neurogenic claudication - Continues on baclofen 10 mg t.i.d. p.r.n., gabapentin 600 mg t.i.d. - she is no longer on Gatzke 5-325 Q6hrs - reviewed PDMP, last refilled in 05/2024 - reports she used to get injections from Pain management in the past but never wants to get injections in future, reports hx of developing abscesses - during past hospital stay, diagnosed with spinal stensosi, was discharged with narcotic pain medications - Consider pain management referral Assessment & Plan (08/06/2024 9:04 PM CAUSTIC PURIFICATION OPERATOR): - Chronic; on conservative tx; continue home PT - Continues on Gatzke 5/325 mg- 1 tab 4 times daily p.r.n., baclofen 10 mg t.i.d. p.r.n., gabapentin 600 mg t.i.d. - Consider pain management referral Spinal stenosis of lumbar re gion with neurogenic claudication 06/12/2024 Overview (10/28/2024): Chronic back pain Assessment & Plan (07/14/2024 9:00 PM CAUSTIC PURIFICATION OPERATOR): Pain has been adequately controlled, continue scheduled baclofen, scheduled Tylenol, scheduled Gatzke. Patient continues to require significant assistance for bed mobility and transfers, unfortunately has not made much progress with therapy. Patient was felt stable for discharge on 07/15/2024 to return home with family who has demonstrated the ability to care for patient. We will arrange home health PT, OT, RN. Assessment & Plan (07/08/2024 1:25 PM CAUSTIC PURIFICATION OPERATOR): Pain is controlled, continue scheduled norco, baclofen, tylenol. Pt has not made much progress, therapy working on family transfers with zaynab. Anticipate that she will need 24 hour at discharge. Assessment & Plan (07/03/2024 12:49 PM CAUSTIC PURIFICATION OPERATOR): Pain is better controlled with current regimen of scheduled Gatzke 5/325 mg 1 tab q.i.d., baclofen 10 mg t.i.d., Tylenol t.i.d. therapies are in place, monitor patient's progress. Has not made much progress with slide board transfers, but has been sitting up in chair for a short period of time in the afternoons. Assessment & Plan (06/25/2024 1:57 PM CAUSTIC PURIFICATION OPERATOR): Patient continues to struggle with pain with movement. Patient was not standing at baseline but is hoping to be able to transfer via slide board independently. Patient was not noted increased lethargy with last weeks medication adjustments. She is concerned because he does not feel she is getting her pain medication in correlation with when she has therapy. Have asked the care team to estimate a time so that medications can be given more routinely in relationship to therapy. We will scheduled Gatzke 1 tab q.i.d., continue baclofen 10 mg t.i.d., scheduled Tylenol t.i.d. Assessment & Plan (06/22/2024 11:02 AM CDT): She is currently in appeal. Later, I was advised that her appeal had been recognized and she will not be discharged soon. She does report that her pain control is improved. I recommend continuing gabapentin as scripted and Gatzke as scripted t.i.d. p.r.n. pain. Also continue baclofen as scripted Assessment & Plan (06/19/2024 11:49 PM CDT): Nursing staff in care plan/family reporting that pain is suboptimally controlled. When patient is initially asked she denies this however she then explains that pain is still preventing her from pushing herself in therapy and making progress. Patient is already somewhat lethargic but is able to arouse and participate. She reports that she has been having difficulty receiving her p.r.n. Gatzke due to nursing staff. Agreeable to scheduled Gatzke t.i.d., schedule baclofen increase gabapentin dosing. We will need to monitor closely for over-sedation, inability to participate in therapy due to lethargy Assessment & Plan (06/14/2024 11:05 AM CDT): Pain remains uncontrolled, we will scheduled Gatzke 5/325 mg, 1 tablet b.i.d., and t.i.d. p.r.n.. We will also increase gabapentin to 300 mg t.i.d.(creatinine clearance 84). Continue p.r.n. baclofen. Assessment & Plan (06/12/2024 8:31 PM CDT): We will continue conservative management. Therapies are in place, monitor patient's progress. Continue pain control with baclofen t.i.d. p.r.n., gabapentin 200 mg b.i.d., Gatzke 5/325 1 tablet q.6 hours p.r.n.. We will stop ibuprofen secondary to renal dysfunction. Patient's baseline functional level is independent slide board transfers, wheelchair level. Patient does not have a prosthesis to left lower extremity. Personal history of colonic polyps 05/02/2024 History of colon polyps 04/26/2024 Assessment & Plan (02/16/2025 9:26 PM CDT): - reports hx of colon polyps - reports she has had Colonoscopy in [place] about 2 years ago, at [facility] Mixed action and resting tremor 01/24/2024 Assessment & Plan (02/16/2025 9:24 PM CDT): - reports chronic - prior PCP had prescribed Carbidopa-Levodopa but patient discontinued it, states she was allergic to it - Primidone shows interaction with her blood thinner Xarelto - I have also talked to her to talk with the psychiatrist if this is secondary to her psychiatric medications - Referral placed to Neurology for patient - Dr. Rodriguez ([facility]) neurology Assessment & Plan (10/28/2024 2:10 AM CDT): - reports chronic - prior PCP had prescribed Carbidopa-Levodopa but patient discontinued it, states she was allergic to it Ben[employer]a continuous glucose monitoring device 12/19 Assessment & Plan (12/29/2023 3:16 PM CDT): Continuous glucose monitor (cgm) applied from 12/16/2023 to 12/29/2023 This device was placed for monitor and treatment of blood sugar. Interpretation of data- average glucose 260. 21% time in range. 79% hyperglycemia. 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 - Follow-up with cardiology - hx of poorly controlled DM, active tobacco smoker - long diabetes hx since - continue current management Lab Results Component Value Date LDLCALC 50 04/18/2024 Lab Results Component Value Date HGBA1C 6.0 (H) 08/24/2024 Lab Results Component Value Date SCRA1C 10.7 08/06/2021 Assessment & Plan (10/28/2024 2:14 AM CDT): - chronic; stable - reports hx of stent placement in bilateral lower extremities - Continues on Xarelto 2.5 mg b.i.d., Plavix 75 mg daily, ASA 81 mg daily and Atorvastatin 80 mg daily with Ezetimibe 10 mg daily - 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 She still has a chronic lower extremity wound that is in the process of healing. She sees [facility] vascular for vascular side of things. Cholesterol is controlled. Continue low-dose Xarelto, aspirin, Clopidogrel as well as cholesterol medications for risk factor modification Assessment & Plan (01/24/2024 7:18 PM CDT): Patient reports she has a new recent wound on the left leg. Working with the wound care center. Were closely with specialists. Continue cholesterol medication. Assessment & Plan (09/18/2023 5:50 PM CAUSTIC PURIFICATION OPERATOR): Patient has significant atherosclerosis of the lower extremity. The prior right leg ulceration has now healed after having interventions with her vascular specialist. Continue risk factor modification with high-intensity statin and Zetia. LDL goal less than 70 with optimal less than 55 Assessment & Plan (06/14/2023 6:44 PM CDT): Patient has ulceration of over the right greater toe that started after a injury. She is likely having difficulty healing this due to her underlying vascular conditions. She is seen wound care for her left leg and plans to discuss with them tomorrow on the right Type 2 diabetes mellitus wit h stage 3b chronic kidney disease, with long-term current use of insulin 12/12/2022 Assessment & Plan (10/28/2024 1:51 AM CDT): - Chronic; slightly decreased from prior - eGFR 39, uACR 180 - avoid NSAIDs/nephrotoxic medications - Continue lispro, Soliqua, Farxiga, Zetia, atorvastatin - another provider had recommended referral to Nephrology- Pt declines at this time 07/2024 Lab Results Component Value Date CREATININE 1.17 (H) 08/27/2024 CREATININE 1.02 08/26/2024 CREATININE 1.16 (H) 08/25/2024 CREATININE 1.17 (H) 08/24/2024 Assessment & Plan (08/06/2024 8:52 PM CAUSTIC PURIFICATION OPERATOR): - Chronic; slightly decreased from prior - eGFR 39, uACR 180 - avoid NSAIDs/nephrotoxic medications - Continue lispro, Soliqua, Farxiga, Zetia, atorvastatin - Consider referral to Nephrology- Pt declines at this time Assessment & Plan (06/22/2024 10:59 AM CDT): Chronic stable. Continue to monitor point of care glucose. Continue insulin lispro, Victoza, Farxiga, Zetia, atorvastatin, Assessment & Plan (06/10/2024 2:52 PM CDT): This is currently stable with hyperglycemia. The nurses will follow Accu-Cheks a.c. and HS q.i.d.. Dietary will follow. We will continue insulin glargine 48 units subcutaneous b.i.d., discontinue Soliqua, order Victoza, decrease insulin lispro a.c. from 70 units t.i.d. to 20 units t.i.d., and continue insulin lispro. The nurses are asked to call this provider if glucose a.c. is greater than 300. We will try to simplify her regimen and achieve adequate glycemic control prior to discharge. Continue Farxiga Assessment & Plan (04/26/2024 3:41 PM CDT): Renal function worsening on most recent labs. We will do repeat to see if it has improved. Avoid dehydration. Monitor Assessment & Plan (01/24/2024 7:09 PM CDT): Renal function has been stable on labs. We will continue to monitor. Continue work with Endocrinology for diabetes. Continue Farxiga for renal benefits Assessment & Plan (09/18/2023 5:49 PM CAUSTIC PURIFICATION OPERATOR): Patient has chronic diabetes with stage 2 chronic kidney disease. Continue care per endocrinology. Monitor renal function Assessment & Plan (06/14/2023 6:45 PM CDT): Diabetes was uncontrolled on last check. Recent blood sugars out arrange. Patient was encouraged to work closely with her in home caregiver. She is an appointment coming up in 2 weeks. Discussed blood sugar goals. Encouraged her to continue working on diabetic diet. Encouraged her to work on exercise as able Bipolar 1 disorder, depressed 12/12/2022 Overview (02/16/2025): Follows with Psychiatry - Psychiatrist is DARREN YOUNG NP in [place] Assessment & Plan (01/10/2025 12:37 PM CDT): - Chronic, stable on current regimen - known conditions of Anxiety and Bipolar disorder - follows and managed by psychiatry - Continue duloxetine 60 mg daily, Lamictal 100 mg b.i.d., Abilify 10 mg daily - recommend that she talk with her psychiatrist about her tremors/movement disorder that she is having this is secondary to psychiatric medications Assessment & Plan (10/28/2024 2:13 AM CDT): - Chronic, stable on current regimen - known conditions of Anxiety and Bipolar disorder - follows and managed by psychiatry - Continue duloxetine 60 mg daily, Lamictal 100 mg b.i.d., Abilify 10 mg daily The current medical regimen is effective; continue present plan and medications per psychiatry provider Assessment & Plan (08/06/2024 8:43 PM CAUSTIC PURIFICATION OPERATOR): - Chronic, stable on current regimen - Continue duloxetine 60 mg daily, Lamictal 100 mg b.i.d., Abilify 10 mg daily Assessment & Plan (07/14/2024 8:58 PM CAUSTIC PURIFICATION OPERATOR): Mood has significantly improved. Patient has been participating but has not yet made much progress in therapy. Continue duloxetine, Lamictal, Abilify Assessment & Plan (07/03/2024 12:47 PM CAUSTIC PURIFICATION OPERATOR): Pt reported some hallucinations yesterday - has a history of these with psych meds. Mental status now back to baseline. Continue duloxetine, Lamictal, Abilify Assessment & Plan (07/01/2024 1:34 PM CAUSTIC PURIFICATION OPERATOR): Mood stable, pt participating. Continue Abilify, lamictal, duloxetine. Assessment & Plan (06/10/2024 3:09 PM CDT): Continue duloxetine 60 mg daily, continue Lamictal 100 mg p.o. b.i.d. we will also continue Abilify 10 mg daily. Since this is a chronic prescription (epic indicates that she has been prescribed this medication since at least 2021,) I advise against a gradual dose reduction and we will continue as scripted. Assessment & Plan (04/26/2024 3:39 PM CDT): Chronic. Mood fluctuates. Continue medication and care per Psychiatry Assessment & Plan (01/24/2024 7:11 PM CDT): Chronic. Could be slightly better. Continue current medications. Keep work closely with Psychiatry. We will need to monitor for potential worsening mood with starting Sinemet for the new tremor as they are some risk that these 2 can counter act each other. It is possible that the Abilify could be contributing some to her parkinsonism Assessment & Plan (09/18/2023 5:49 PM CAUSTIC PURIFICATION OPERATOR): Chronic. Stable. Follows with Psychiatry. Denies any issues with severe anxiety or depression today Assessment & Plan (06/14/2023 6:44 PM CDT): Chronic. Patient reports mood is relatively stable on the current medications. She is managed by Psychiatry S/P BKA (below knee amputation), left 09/05/2022 Overview (11/28/2022): Due to Diabetic ulcer with gangrene Assessment & Plan (04/26/2024 3:38 PM CDT): Chronic. Following with [facility] for a chronic diabetic ulcer. The picture she provided today do not show any signs of infection. Continue care per [facility]. Patient has not been able to get a prosthesis due to the chronic wound issue Assessment & Plan (01/24/2024 7:12 PM CDT): Patient has a recurrent wound on the left leg for which she is still working with wound care. They are continuing to work with her to heal up her BKA site. Continue wound care per movement education specialist Assessment & Plan (09/18/2023 5:49 PM CAUSTIC PURIFICATION OPERATOR): Patient with prior left leg amputation due to diabetic ulcer with gangrene. She has a chronic wound on the upper morrison for which she is working with the wound care center. Continue care per movement education specialist Assessment & Plan (09/10/2022 10:21 AM CAUSTIC PURIFICATION OPERATOR): Patient underwent left BKA on 09/05, postop day 5. Due to gangrenous ulcer. Reviewed WBC count on 09/10 at 7.5 and remains without leukocytosis. Hemoglobin of 8.7 on 09/10 and presently stable. - s/p vancomycin (08/31 - 09/05), Meropenem (09/01 - 09/06), Flagyl (09/02 - 09/05) - infectious disease does not recommend any further antibiotic treatment - Wound care, Podiatry, Infectious Disease and surgery consulted. - pain control per surgery - weaned off Dilaudid MINIATURE SET DESIGNER pump on 09/08 and transitioned to oral pain control JOSE L (obstructive sleep apnea) 09/04/2022 Overview (10/28/2024): Not on CPAP, CPAP intolerant Assessment & Plan (08/06/2024 8:39 PM CAUSTIC PURIFICATION OPERATOR): - chronic; uncontrolled, CPAP intolerant Assessment & Plan (04/26/2024 3:38 PM CDT): Chronic. Uncontrolled. CPAP intolerant. Work on diet, exercise, weight loss. If patient is able to get her leg wounds healed up then may be worth having her see sleep medicine for consult to see if she might be a candidate for inspire device. Assessment & Plan (01/24/2024 7:14 PM CDT): Remains untreated. Prior intolerance to CPAP. May benefit from oral appliance Assessment & Plan (09/18/2023 5:51 PM CAUSTIC PURIFICATION OPERATOR): Chronic. Previously intolerant to CPAP. Encouraged weight loss Assessment & Plan (09/10/2022 10:07 AM CAUSTIC PURIFICATION OPERATOR): Using home CPAP. Constipation 09/03/2022 Assessment & Plan (01/10/2025 9:48 AM CDT): - chronic, better controlled - Associated with immobility - Lactulose PRN use - MiraLax p.r.n., continue The current medical regimen is effective; continue present plan and medications. Assessment & Plan (10/28/2024 2:09 AM CDT): - Associated with immobility and chronic foods - Lactulose PRN --> refill provided - MiraLax p.r.n., continue - Notify office if further concerns - continue current management Assessment & Plan (08/06/2024 8:57 PM CAUSTIC PURIFICATION OPERATOR): - Associated with immobility and chronic foods - Lactulose, MiraLax p.r.n. - Notify office if further concerns Assessment & Plan (07/14/2024 8:57 PM CAUSTIC PURIFICATION OPERATOR): Patient continues to struggle with constipation likely due to immobility and narcotic use. No longer is uncomfortable and is having small bowel movements. Continue current aggressive bowel regimen including bisacodyl 10 mg daily, lactulose 10 g b.i.d., MiraLax b.i.d., p.r.n. milk of magnesia Assessment & Plan (07/03/2024 12:44 PM CAUSTIC PURIFICATION OPERATOR): Abd xray demonstrates large fecal burden in rectum and large intestine. Still has not had a bowel movement per patient report. Nursing documentation indicates she had a bowel movement 06/30/2024. We will give fleets x1 today, continue other bowel regimen with lactulose 10 g b.i.d., bisacodyl 10 mg daily, Monika Colace 2 capsules b.i.d., MiraLax b.i.d.. We will repeat fleets enema if she does not have a bowel movement before 8:00 p.m.. Assessment & Plan (07/01/2024 1:49 PM CAUSTIC PURIFICATION OPERATOR): Pt continues to report that she is constipated despite additional medications - miralax x 7, mag citrate. Pt denies abd pain, no vomiting. Pt sits up only a hour or so per day, non ambulatory. Will check abd xray, will add lactulose 10g bid. Continue bisacodyl 10mg daily, pericolace 2 cap BID, miralax bid. Assessment & Plan (06/27/2024 2:57 PM CAUSTIC PURIFICATION OPERATOR): Bonnie and her mother report no substantial bowel movement for at least 7 days despite all interventions offered. These have included enemas and cathartics. Nurse Aure confirms this history. I have ordered 7 scoops of MiraLax and 1/2 gal of water or gatoraid (nurse is going to use OJ at patient request). She is to sepsis slowly by bedtime tonight. If there is no effective bowel movement by tomorrow morning this exercises to be repeated. Otherwise she is to continue her sennosides with docusate as scripted Assessment & Plan (06/10/2024 3:03 PM CDT): She reports an absence of bowel movement since May 30. The discharge summary documents that this is not true. We will continue MiraLax as scripted Dependence on wheelchair 07/26/2022 Overview (01/10/2025): S/p Left BKA Assessment & Plan (01/10/2025 12:40 PM CDT): Patient is still wheelchair dependent. She is s/p Left BKA, hx of diabetic foot ulcers, active smoker She is unable to use a prosthesis on her left lower extremity due to chronic wound. She will continue use a wheelchair she has handicap placard Assessment & Plan (10/28/2024 2:12 AM CDT): Patient is still wheelchair dependent. She is unable to use a prosthesis on her left lower extremity due to chronic wound. She will continue use a wheelchair Completed paperwork for handicap placcarina on this visit Assessment & Plan (09/18/2023 5:50 PM CAUSTIC PURIFICATION OPERATOR): Patient is still wheelchair dependent. She is unable to use a prosthesis on her left lower extremity due to chronic wound. She will continue use a wheelchair Assessment & Plan (06/14/2023 6:44 PM CDT): Patient remains wheelchair dependent at current time. She is unable to use a left leg prosthesis until the chronic wound on the left lower extremity heels Hypertension associated with diabetes 10/23/2020 Assessment & Plan (01/10/2025 9:40 AM CDT): BP Readings from Last 3 Encounters: 01/10/25 132/74 09/12/24 136/80 08/27/24 146/49 - chronic, better controlled - continue Amlodipine 10 mg daily, Losartan 100 mg daily, metoprolol tartrate 50 mg BID, hydralazine 50 mg TID - Monitor BP 1-2x daily, report readings > 140/90 or < 100/60 - has known conditions of PAD, follows with Cardiology The current medical regimen is effective; continue present plan and medications. Assessment & Plan (10/28/2024 1:49 AM CDT): BP Readings from Last 3 Encounters: 09/12/24 136/80 08/27/24 146/49 07/24/24 132/78 - chronic, stable at goal of < 140/90 - continue amlodipine 10 mg daily, losartan 100 mg daily, metoprolol tartrate 50 mg daily, hydralazine 50 mg TID - Monitor BP 1-2x daily, report readings > 140/90 or < 100/60 - has known conditions of PAD, follows with Cardiology Assessment & Plan (08/06/2024 8:35 PM CAUSTIC PURIFICATION OPERATOR): - chronic, stable at goal of < 140/90 - continue amlodipine 10 mg daily, losartan 100 mg daily, metoprolol 50 mg daily, hydralazine 50 mg TID - Monitor BP 1-2x daily, report readings > 140/90 or < 100/60 Assessment & Plan (07/14/2024 8:54 PM CAUSTIC PURIFICATION OPERATOR): Blood pressure controlled, continue losartan, Norvasc, metoprolol. Chlorthalidone has been discontinued Assessment & Plan (07/08/2024 1:17 PM CAUSTIC PURIFICATION OPERATOR): BP stable, continue metoprolol, norvasc, losartan. Chlorthalidone on hold Assessment & Plan (07/03/2024 12:41 PM CAUSTIC PURIFICATION OPERATOR): Blood pressure well controlled, continue losartan 100 mg daily, Norvasc 10 mg daily, metoprolol 50 mg b.i.d. Chlorthalidone on hold Assessment & Plan (06/27/2024 2:58 PM CAUSTIC PURIFICATION OPERATOR): Continue current scripting of hydralazine, losartan, metoprolol Assessment & Plan (06/22/2024 10:58 AM CDT): Chronic, stable. Continue to monitor vital signs for trending patterns. Continue amlodipine, chlorthalidone, losartan, metoprolol, all as scripted Assessment & Plan (06/12/2024 8:27 PM CDT): Blood pressure mildly elevated, continue Norvasc 10 mg daily, chlorthalidone 25 mg daily, metoprolol 50 mg b.i.d., losartan 100 mg daily, will increase hydralazine to 75 mg t.i.d. Assessment & Plan (06/10/2024 2:54 PM CDT): This is chronic and stable. Monitor vital signs for trending pattern. Continue amlodipine 10 mg daily, chlorthalidone 25 mg daily, hydralazine 50 mg t.i.d. continue losartan, continue metoprolol Assessment & Plan (04/26/2024 3:37 PM CDT): Chronic. Blood pressure is controlled. Continue amlodipine and losartan. Encouraged healthy diet, exercise, weight loss. Continue working with Endocrinology for diabetes Assessment & Plan (04/18/2024 11:11 AM CDT): This is a chronic condition which is at goal. Goal is less than 140/90 Continue amlodipine, chlorthalidone, losartan, metoprolol Encouraged to monitor weight and B/P at home. Encouraged to void caffeine and excessive alcohol consumption as this will elevate B/P Assessment & Plan (01/24/2024 7:10 PM CDT): Chronic. Hypertension is controlled. Continue losartan and amlodipine. Diabetes needs improvement. She will continue on her insulin regimen, Soliqua, Farxiga. She will continue working with Endocrinology Assessment & Plan (12/29/2023 3:14 PM CDT): This is a chronic condition which is was not at goal upon arrival to the office. But returned a goal after some rest. Goal is less than 140/90 Personally reviewed labs. Continue amlodipine, chlorthalidone, losartan, metoprolol Encouraged to monitor weight and B/P at home. Explained correct way to take blood pressure. - After 5 minutes of sitting calmly with arm supported. Encouraged to void caffeine and excessive alcohol consumption as this will elevate B/P Encouraged to take medications as prescribed. Assessment & Plan (09/18/2023 5:50 PM CAUSTIC PURIFICATION OPERATOR): Chronic. HTN controlled. Cont prescription Rx. Low sodium diet (DASH or Mediterranean), exercise, wt loss (if over weight) discussed Assessment & Plan (06/28/2023 12:13 PM CAUSTIC PURIFICATION OPERATOR): This is a chronic condition which is at goal of less than 140/90 Personally reviewed labs. Continue chlorthalidone, amlodipine, losartan Encouraged to monitor weight and B/P at home Encouraged to take medications as prescribed. Assessment & Plan (06/14/2023 6:45 PM CDT): Chronic. Controlled. Continue current prescription medications Assessment & Plan (09/10/2022 10:13 AM CAUSTIC PURIFICATION OPERATOR): Patient with a history of elevated blood pressure managed with home medication Norvasc 10 mg daily, Chlorthalidone 25 mg daily, Losartan 25 mg daily. Blood pressure reviewed 09/10/2022; stable. Plan: - continue amlodipine 10 mg, Chlorthalidone 25 mg daily, losartan 25 mg daily. - continue metoprolol 50 mg b.i.d. Assessment & Plan (03/11/2022 12:55 PM CDT): This is a chronic condition which is not at goal Goal is <140/90 B/P today- 150/74, currently on enalapril, lopressor. not at Goal blood pressure is <140/90 and as close to 120/80 as possible. Continue enalapril, lopressor. Avoid caffeine, caffeine will raise blood pressure and excessive alcohol consumption. Monitor your weight and B/P. Encouraged to take medications as prescribed. Assessment & Plan (11/02/2021 9:20 AM CDT): This is a chronic condition which is not at goal Goal is <140/90 b/p today 150/74 Personally reviewed labs. Continue enalapril, lopressor. Avoid caffeine, caffeine will raise blood pressure and excessive alcohol consumption. Monitor your weight and B/P. Encouraged to take medications as prescribed. Assessment & Plan (06/25/2021 4:09 PM CDT): This is a chronic condition which is not at goal Goal is <140/90 b/p today 150/74 Personally reviewed labs. Continue enalapril, lopressor. Avoid caffeine, caffeine will raise blood pressure and excessive alcohol consumption. Monitor your weight and B/P. Encouraged to take medications as prescribed. Assessment & Plan (03/01/2021 6:08 PM CDT): This is a chronic condition which is not at goal Goal is <140/90 Personally reviewed labs. Continue enalapril, lopressor. Avoid caffeine, caffeine will raise blood pressure and excessive alcohol consumption. Monitor your weight and B/P. Encouraged to take medications as prescribed. Type 2 diabetes mellitus wit h diabetic polyneuropathy, with long-term current use of insulin 08/31/2012 Overview (10/28/2024): Follows with Endocrinology Assessment & Plan (01/10/2025 9:39 AM CDT): - chronic, well controlled - hx of poorly controlled DM - hx of diabetic foot ulcers, s/p left BKA - continue Soliqua 100/33- 20 and 45 units, lispro 20 units tid before meals, farxiga 10 mg daily - currently on atoravstatin 80 and Ezetimibe 10 daily - has CKD stage3 - recommend yearly dilated eye exams - recommend routine diabetic foot care per podiatry - continue management per endocrinology, establishing with new endocrinology on March 03, 2025 Dr. Hutchison Lab Results Component Value Date HGBA1C 6.0 (H) 08/24/2024 HGBA1C 10.2 04/18/2024 HGBA1C 10.2 12/29/2023 Lab Results Component Value Date LDLCALC 50 04/18/2024 CREATININE 1.17 (H) 08/27/2024 Assessment & Plan (10/28/2024 2:02 AM CDT): - chronic, well controlled but improved from prior, most recent HgA1c 10.2 (04/18/24) - hx of poorly controlled DM - hx of diabetic foot ulcers, s/p left BKA - continue Soliqua 100/33- 45 units subQ bid, lispro 20 units tid before meals, farxiga 10 mg daily - currently on atoravstatin 80 and Ezetimibe 10 daily - has CKD stage3 - recommend yearly dilated eye exams - recommend routine diabetic foot care per podiatry - continue management per endocrinology Lab Results Component Value Date HGBA1C 6.0 (H) 08/24/2024 HGBA1C 10.2 04/18/2024 HGBA1C 10.2 12/29/2023 Lab Results Component Value Date LDLCALC 50 04/18/2024 CREATININE 1.17 (H) 08/27/2024 Assessment & Plan (08/06/2024 7:23 AM CAUSTIC PURIFICATION OPERATOR): - chronic, poorly controlled but improved from prior, most recent HgA1c 10.2 (04/18/24) - continue Soliqua 100/33- 45 units subQ bid, lispro 20 units tid before meals, farxiga 10 mg daily - eGFR 39 - recommend yearly dilated eye exams - recommend routine diabetic foot care per podiatry Assessment & Plan (07/14/2024 8:55 PM CAUSTIC PURIFICATION OPERATOR): A1c 10.2, Accu-Cheks generally controlled, ranging from 123 to 246, continue Lantus 45 units b.i.d., lispro 20 units t.i.d. a.c., Victoza, Farxiga. We will discontinue sliding scale insulin upon discharge Assessment & Plan (07/08/2024 1:22 PM CAUSTIC PURIFICATION OPERATOR): A1c 10.2, BS 107-247. Continue lantus 45 units BID, lispro 20 units TIDAC, SSI, vitcoza, farxiga Assessment & Plan (06/25/2024 1:55 PM CAUSTIC PURIFICATION OPERATOR): A1c 10.2, BS 110-211, we will continue Victoza, Farxiga, Lantus 45 units b.i.d., lispro 20 units t.i.d. with sliding scale insulin Assessment & Plan (06/19/2024 11:52 PM CDT): A1c 10.2, Accu-Cheks better controlled, currently ranging from 112-315. Continue Lantus 45 units b.i.d., lispro 20 units t.i.d. a.c., sliding scale t.i.d. a.c., Farxiga, Victoza Assessment & Plan (06/14/2024 11:09 AM CDT): A1c 10.2, blood sugar lower at 93-187. We will reduce Lantus to 45 units b.i.d., continue mealtime insulin 20 units t.i.d. a.c. with sliding scale. We will continue Farxiga, Victoza Assessment & Plan (06/12/2024 8:25 PM CDT): A1c 10.2, Accu-Cheks ranging from 95-218. No noted hypoglycemic events, continue glargine 48 units b.i.d., lispro 20 units t.i.d. a.c. with sliding scale insulin, Farxiga, Victoza. Continue to monitor Assessment & Plan (06/10/2024 2:51 PM CDT): Continue gabapentin 200 mg p.o. b.i.d.. Continue Gatzke as scripted Assessment & Plan (04/26/2024 3:37 PM CDT): Chronic. Controlled needs improvement. She had been off insulin for a while due to refill issues. Work closely with Endocrinology. Encouraged diabetic diet and exercise. Assessment & Plan (01/24/2024 7:09 PM CDT): Chronic. Poorly controlled. Working with Endocrinology. Encouraged to continue working on diabetic diet. Try to get exercise as able. Patient did recently have some adjustments in her short-acting insulin. She had been off her Humalog for a few weeks prior to her last A1c as she was having difficulty getting it. Endocrinology is trying to get her some of her medications through patient assistance. Assessment & Plan (09/18/2023 5:49 PM CAUSTIC PURIFICATION OPERATOR): Chronic. Poorly controlled. Working with Endocrinology. Encouraged patient to really work on diabetic diet. Encouraged to work on exercise as able. We offered a referral for perinatal educator and dietitian but patient deferred Assessment & Plan (06/28/2023 12:13 PM CAUSTIC PURIFICATION OPERATOR): This is a chronic condition which is out of control, worsening not at goal of less than 7%. Personally reviewed most recent A1c - Lab Results Component Value Date HGBA1C 12.1 06/28/2023 Personally reviewed POC blood sugar- not at goal 80-180 Lab Results Component Value Date POCGLU 442 06/28/2023 Medication- continue xultophy 50 units daily. (Received from Patient assistance from [employer] program) continue Humalog U200 60 units 3 times a day prior to meals. We discussed possibly switching to U500 insulin. She does not want to change anything at this time. We discussed setting alarms on her cell phone to ring when she should take her insulin. She states she will try this. She reports she is sleeping a lot and struggling emotionally Monitor blood sugar 4times a day. Encouraged annual eye exam. Monofilament foot exam completed. loss of protective senses. Treated with Gabapentin Wearing a postop boot to right foot has ulcer on big toe, is being treated by Dr. Siu We discussed the importance of keeping blood sugars around 150 to promote wound healing of her foot ulcer. Personally reviewed CMP eGFR- 43 Kidney function- abnormal Urine microalbumin/creatinine ratio - not at goal <30 treated with chlorthalidone, amlodipine, losartan B/P today- at goal of <140/90. continue chlorthalidone, amlodipine, losartan Personally reviewed lipid panel. at Goal of less than 70. Continue atorvastatin, Zetia Assessment & Plan (06/14/2023 6:45 PM CDT): Chronic diagnosis. Diabetes needs improvement. Continue gabapentin for neuropathic pain. Continue care per Endocrinology Assessment & Plan (03/29/2023 1:44 PM CDT): This is a chronic condition which is worsening not at goal of less than 7%. Personally reviewed most recent A1c - Lab Results Component Value Date HGBA1C 8.3 03/29/2023 Personally reviewed POC blood sugar- not at goal 80-180 Lab Results Component Value Date POCGLU 210 03/29/2023 Medication- Continue xultophy 50 units daily. (Received from Patient assistance from [employer] program) continue Humalog U200 36 units 3 times a day prior to meals. Encouraged good blood sugar control to promote wound healing. Monitor blood sugar 3 times a day. Will apply for dexcom 7 sensor Encouraged annual eye exam. Monofilament foot exam completed. 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 Treated with Gabapentin Personally reviewed CMP eGFR- 83 Kidney function- normal Urine microalbumin/creatinine ratio - at goal <30 not treated with losartan, amlodipine, metoprolol, chlorthalidone B/P today- at goal of <140/90. continue losartan, amlodipine, metoprolol, chlorthalidone Personally reviewed lipid panel. Not at Goal of less than 70. Continue atorvastatin, Zetia Assessment & Plan (12/21/2022 2:52 PM CDT): This is a chronic condition which is close at goal of less than 8% with taking Xultophy 36 units every 4 hrs. (6x/day) Total daily dose of insulin 216 units . Informed that she could not continue to take Xultophy 36 units every 4 hours. She would need to be turned back to Tresiba U 200 basal insulin. However she has a surplus of the Xultophy from the [employer] patient assistance. Will start Humalog U 200 at 32 units 3 times a day prior to meals. This will equal 146 units- total daily dose. She may need U500 insulin. Encouraged to call blood sugars. She is off all her oral medications. I attempted to refill those. She states she prefers to just take insulin. Personally reviewed most recent A1c - Lab Results Component Value Date HGBA1C 7.5 12/21/2022 Personally reviewed POC blood sugar- not at goal 80-180 Lab Results Component Value Date POCGLU 274 12/21/2022 Medication- Continue Xultophy 50 units daily, start humalog u200 36 units three times a day prior to meals. Continue Farxiga 10 mg p.o. daily. Monitor blood sugar 4 times a day. Encouraged annual eye exam. Monofilament foot exam completed. Complete loss of protective senses. Continue Cymbalta, gabapentin Urine microalbumin/creatinine ratio - not at goal <30 treated with amlodipine, chlorthalidone, losartan, metoprolol Personally reviewed CMP eGFR- 83. Kidney function- normal B/P today-at goal of <140/90. continue amlodipine, chlorthalidone, losartan, metoprolol Personally reviewed lipid panel. Not at Goal of less than 70. Continue atorvastatin. Assessment & Plan (09/10/2022 10:13 AM CAUSTIC PURIFICATION OPERATOR): Home regimen includes Lantus 62 units every morning, Humalog 22 units t.i.d. with meals and sliding scale with meals and nightly. Blood sugars initially elevated on admission. Last hemoglobin A1c on 06/29/2022 was 10.7. Blood sugar range 183-268 in the last 24 hours reviewed on 09/10/2022. Poorly controlled diabetes. Patient denies any late night meal consumption or intermittent snacks. Plan: - Lantus 46 units b.i.d. (increased on 09/08/22) - Lispro mealtime t.i.d. 25 units - continue sliding scale - monitor blood sugar and adjust as needed Assessment & Plan (03/11/2022 12:55 PM CDT): This is a chronic condition which is worsening but not at goal. Personally reviewed A1c Today- increased to 9.9% Not at goal less than 7% Personally reviewed blood sugar -257- Not at goal 80-180 Medication- switch Tresiba 50 units daily to xultophy 50 units daily. Will start at 25 units and titrate up once she received the medication. Patient assistance forms provided and filled out for the [employer] program- she is receiving Tresiba U200 already. Glimeperide 4mg twice a day, Metformin XL 1000mg bid. Monitor blood sugar 3 times a day for 3 days Encouraged annual eye exam. Monofilament foot exam completed, loss of protective senses. Urine microalbumin/creatinine ratio -442 POC >300mg high abnormal. Will monitor as blood sugars/A1c decreases. currently on enalapril , not at goal <30 Personally reviewed labs: will obtain most recent labs from PCP office BUN- 19, creatinine-0.86 GFR- >60 Kidney function- normal B/P today- 150/74, currently on enalapril, lopressor. not at Goal blood pressure is <140/90 and as close to 120/80 as possible. Encouraged to notify PMD. Personally reviewed LDL - 112 currently on atorvastatin, 20mg daily. Not at goal of less than 70 No history of macrovascular disease - [place], [place]. Assessment & Plan (11/02/2021 4:44 PM CDT): This is a chronic condition which is improving but not at goal. Personally reviewed A1c Today- 9.2% Not at goal less than 7% Personally reviewed blood sugar -300 Not at goal 80-180 Medication- ITresiba U200 48 units daily. Bydureon 2mg weekly on - not taking due to cost- will stop, Glimeperide 4mg twice a day, Metformin XL 1000mg bid- patient is receiving Tresiba from [employer] assistance program- will change to Xultophy to cover tresiba and GLP-1 victoza. Monitor blood sugar 3 times a day for 3 days Encouraged annual eye exam. Monofilament foot exam completed, loss of protective senses. Urine microalbumin/creatinine ratio -442 (08/09) from care everywhere. POC >300mg high abnormal. Will monitor as blood sugars/A1c decreases. currently on enalapril , not at goal <30 Personally reviewed labs: fax from PCP office BUN- 19, creatinine-0.86 GFR- >60 Kidney function- normal B/P today- 168/84, currently on enalapril, lopressor. not at Goal blood pressure is <140/90 and as close to 120/80 as possible. Encouraged to notify PMD. Personally reviewed LDL - 112 currently on atorvastatin, 20mg daily. Not at goal of less than 70 No history of macrovascular disease - CVA, [place]. Assessment & Plan (06/25/2021 4:09 PM CDT): This is a chronic condition which is worsening and not at goal. Personally reviewed A1c Today- 10.9% Not at goal less than 7% Personally reviewed blood sugar -258 Not at goal 80-180 Medication- Increase Tresiba U200 40 units daily goal blood sugar 90-130, if blood sugars not in this range, increase to 42units daily. Continue Bydureon 2mg weekly on , Glimeperide 4mg twice a day, Metformin XL 1000mg bid. Has not been taking insulin or bydureon as she could not afford it. Applied for patient assistance for [employer] and was accepted. Tresiba provided to patient today. Applied for Bydureon patient assistance. Monitor blood sugar 3 times a day for 3 days Encouraged annual eye exam. Monofilament foot exam completed, loss of protective senses. Urine microalbumin/creatinine ratio -442 (08/09) from care everywhere. POC >300mg high abnormal. Will monitor as blood sugars/A1c decreases. currently on enalapril , not at goal <30 Personally reviewed labs: (07/31/20-care everywhere) BUN- 21 , creatinine-0.92 GFR- >60 Kidney function- normal B/P today- 150/74, currently on enalapril, lopressor. not at Goal blood pressure is <140/90 and as close to 120/80 as possible. Encouraged to notify PMD. Personally reviewed LDL - 85 currently on atorvastatin, 20mg daily. Not at goal of less than 70 No history of macrovascular disease - CVA, [place]. Assessment & Plan (03/01/2021 6:06 PM CDT): This is a chronic condition which is improving but not at goal. Personally reviewed A1c Today- 9.1%% Not at goal less than 7% Personally reviewed blood sugar -203 Not at goal 80-180 Medication- Increase Tresiba U200 40 units daily goal blood sugar 90-130, if blood sugars not in this range, increase to 42units daily. Continue Bydureon 2mg weekly on , Glimeperide 4mg twice a day, Metformin XL 1000mg bid. Monitor blood sugar 3 times a day for 3 days Encouraged annual eye exam. Monofilament foot exam completed, loss of protective senses. Urine microalbumin/creatinine ratio -442 (08/09) from care everywhere. POC >300mg high abnormal. Will monitor as blood sugars/A1c decreases. currently on enalapril , not at goal <30 Personally reviewed labs: (07/31/20-care everywhere) BUN- 21 , creatinine-0.92 GFR- >60 Kidney function- normal B/P today- 150/70, currently on enalapril, lopressor. not at Goal blood pressure is <140/90 and as close to 120/80 as possible. Encouraged to notify PMD. Personally reviewed LDL - 85 currently on atorvastatin, 20mg daily. Not at goal of less than 70 No history of macrovascular disease - CVA, [place]. Assessment & Plan (12/07/2020 12:48 PM CDT): This is a chronic condition which is improving but not at goal. Personally reviewed A1c Today- 8.3% decreased from 11.4% Not at goal less than 7% Personally reviewed blood sugar -245 Not at goal 80-180 Medication- Increase Tresiba U200 40 units daily goal blood sugar 90-130, if blood sugars not in this range, increase to 42units daily. Continue Bydureon 2mg weekly on , Glimeperide 4mg twice a day, Metformin XL 1000mg bid. we discussed add jardiance once A1C is decreased to avoid yeast infections. Se discussed adding mealtime insulin after seeing the dietitian if blood sugar do not improve. Monitor blood sugar 3 times a day for 3 days and call results to the office for adjustment next . Encouraged annual eye exam. Monofilament foot exam completed, loss of protective senses. Urine microalbumin/creatinine ratio -442 (08/09) from care everywhere. POC >300mg high abnormal. Will monitor as blood sugars/A1c decreases. currently on enalapril , not at goal <30 Personally reviewed labs: (07/31/20-care everywhere) BUN- 21 , creatinine-0.92 GFR- >60 Kidney function- normal B/P today- 164/94, currently on enalapril, lopressor. not at Goal blood pressure is <140/90 and as close to 120/80 as possible. Encouraged to notify PMD. Personally reviewed LDL - 87 currently on atorvastatin, increased to 20mg daily. Not at goal of less than 70 No history of macrovascular disease - [place], [place]. Referred for nutritional counseling. Assessment & Plan (10/23/2020 12:27 PM CAUSTIC PURIFICATION OPERATOR): This is a chronic condition which is uncontrolled with hyperglycemia, not at goal. Personally reviewed A1c Today- 11.4 Not at goal less than 7% Personally reviewed blood sugar -264 Not at goal 80-180 Medication- Continue Tresiba U200 38 units daily, Bydureon 2mg weekly on , Glimeperide 4mg twice a day, Metformin XL 1000mg bid Monitor blood sugar 3 times a day for 3 days and call results to the office for adjustment next . Encouraged annual eye exam. Monofilament foot exam completed, loss of protective senses. Urine microalbumin/creatinine ratio -442 (08/09) from care everywhere. currently on enalapril , not at goal <30 Personally reviewed labs: BUN- , creatinine-0.92 GFR- >60 Kidney function- normal B/P today- 130/78, currently on enalapril, lopressor. Goal blood pressure is <140/90 and as close to 120/80 as possible. Personally reviewed LDL - 81, currently on atorvastatin. Close to goal of less than 70 No history of macrovascular disease - CVA, [place]. Referred for nutritional counseling. Encouraged to take medications as prescribed and call blood sugars in 1 week. Hyperlipidemia associated with type 2 diabetes andrew yap 08/31/2012 Assessment & Plan (01/10/2025 12:40 PM CDT): - chronic, LDL at goal of < 70 - Continue atorvastatin 80 mg daily, Zetia 10 mg daily - check lipid panel, order placed, results updated below The current medical regimen is effective; continue present plan and medications. Lab Results Component Value Date LDLCALC 50 04/18/2024 Assessment & Plan (10/28/2024 1:54 AM CDT): - chronic, LDL at goal of < 70 - Continue atorvastatin 80 mg daily, Zetia 10 mg daily The current medical regimen is effective; continue present plan and medications. Lab Results Component Value Date LDLCALC 50 04/18/2024 Assessment & Plan (08/06/2024 8:38 PM CAUSTIC PURIFICATION OPERATOR): - chronic, LDL at goal of < 70 - Continue atorvastatin 80 mg daily, Zetia 10 mg daily Assessment & Plan (06/10/2024 2:52 PM CDT): This is chronic and stable. Continue atorvastatin, dietary to follow. Continue Zetia Assessment & Plan (04/26/2024 3:38 PM CDT): Chronic. Continue atorvastatin 80 mg daily and ezetimibe. Work on healthy diet, exercise and weight loss. LDL at goal Resulted in the Past 12 Months 04/18/24 1145 CHOL 117 TRIG 130 HDL 44 LDLCALC 50 Assessment & Plan (04/18/2024 11:11 AM CDT): This is a chronic condition which is at goal . Goal is LDL less than 70 Continue atorvastatin, Zetia Encouraged to eat healthy, include fresh fruits and vegetables daily and avoid eating fried foods more than once per week. Assessment & Plan (04/18/2024 11:12 AM CDT): >>ASSESSMENT AND PLAN FOR MIXED DIABETIC HYPERLIPIDEMIA ASSOCIATED WITH TYPE 2 DIABETES MELLITUS (HCC) WRITTEN ON 01/24/2024 7:10 PM BY ALEXIS FLORES MD Chronic. Diabetes is poorly controlled but is slightly better than last check. Cholesterol levels are improving. Continue atorvastatin and ezetimibe. Continue risk factor modification >>ASSESSMENT AND PLAN FOR HYPERLIPIDEMIA WRITTEN ON 01/24/2024 7:12 PM BY ALEXIS FLORES MD Chronic. Tolerates cholesterol medications. Continue Assessment & Plan (12/29/2023 3:13 PM CDT): This is a chronic condition which is at goal . Goal is LDL less than 70 Continue atorvastatin, Zetia Encouraged to eat healthy, include fresh fruits and vegetables daily and avoid eating fried foods more than once per week. Encouraged to take medications as prescribed. Assessment & Plan (09/18/2023 5:51 PM CAUSTIC PURIFICATION OPERATOR): Chronic. Tolerates rx. Atorvastatin now 80 mg daily. continue Assessment & Plan (06/28/2023 12:14 PM CAUSTIC PURIFICATION OPERATOR): This is a chronic condition which is at goal of LDL less than 70 Continue atorvastatin, Zetia Encouraged to eat healthy, include fresh fruits and vegetables daily and avoid eating fried foods more than once per week. Encouraged to take medications as prescribed. Assessment & Plan (06/14/2023 6:45 PM CDT): Chronic. On cholesterol medications. LDL goal is less than 70. Continue atorvastatin and ezetimibe Assessment & Plan (03/29/2023 1:46 PM CDT): This is a chronic condition which is not at goal of LDL less than 70 Continue atorvastatin Zetia Encouraged to eat healthy, include fresh fruits and vegetables daily and avoid eating fried foods more than once per week. Encouraged to take medications as prescribed. Assessment & Plan (12/21/2022 2:49 PM CDT): This is a chronic condition which is not at goal of LDL less than 70 Continue atorvastatin Will repeat lipid panel with at next office visit Encouraged to eat healthy, include fresh fruits and vegetables daily and avoid eating fried foods more than once per week. Encouraged to take medications as prescribed. Assessment & Plan (11/02/2021 11:25 AM CDT): This is a chronic condition which is not at goal. Goal is less than 70. Personally reviewed lipid panel from care everywhere (07/31/20). Personally reviewed LDL - 85 increased atorvastatin 20mg daily. Not at goal of less than 70 Encouraged to eat healthy, include fresh fruits and vegetables daily and avoid eating fried foods more than once per week. Please take medications as prescribed. Resolved Problems Problem Noted Date Diagnosed Date Resolved Date Diabetic ulcer of heel assoc iated with diabetes mellitus due to underlying condition, limited to breakdown of skin, unspecified laterality 08/23/2024 09/12/2024 Osteomyelitis of right foot 08/23/2024 10/28/2024 Overview (08/23/2024): Suspected osteomyelitis of right heel Diabetes 08/23/2024 10/28/2024 CKD (chronic kidney disease) 08/23/2024 09/12/2024 Neuropathy 08/23/2024 09/12/2024 Bradycardia 08/23/2024 10/28/2024 Acute cystitis without hematuria 06/30/2024 09/12/2024 Abnormal urine 06/27/2024 10/28/2024 Assessment & Plan (06/27/2024 2:58 PM CAUSTIC PURIFICATION OPERATOR): The midnight nurse notes urine with a strange odor. Appearance cloudy. I have asked the nurses to obtain a urine specimen and send for UA with reflex culture. The patient and her mother deny any symptoms of acute cystitis Urinary retention 06/25/2024 09/12/2024 Assessment & Plan (08/06/2024 8:45 PM CAUSTIC PURIFICATION OPERATOR): - chronic, indwelling catheter; continue tamsulosin 0.4 mg nightly - Follow-up with urology Assessment & Plan (07/15/2024 2:08 PM CAUSTIC PURIFICATION OPERATOR): Now resolved, continue Flomax 0.4 mg nightly Assessment & Plan (07/01/2024 1:52 PM CAUSTIC PURIFICATION OPERATOR): Pt has been voiding more often, but still needing occasional straight cath. Will increase flomax 0.8mg nightly Assessment & Plan (06/25/2024 1:58 PM CAUSTIC PURIFICATION OPERATOR): Patient reports that Olvera catheter is leaking, we will remove catheter, attempt voiding trial. Straight cath p.r.n. Chronic renal failure, stage 3b 06/14/2024 10/28/2024 Assessment & Plan (07/14/2024 8:58 PM CAUSTIC PURIFICATION OPERATOR): Renal function had elevated but has since been stable after discontinuing chlorthalidone. GFR of 39-47. Continue to monitor Assessment & Plan (07/01/2024 1:31 PM CAUSTIC PURIFICATION OPERATOR): Renal function stable, Bun/Cr 57/1.40, GFR 41. Chlorthalidone will remain on hold. F/u labs 07/03 Assessment & Plan (06/25/2024 1:56 PM CAUSTIC PURIFICATION OPERATOR): Renal function slightly worsened, BUN/creatinine 51/1.52 with a GFR of [address]. [address] chlorthalidone on hold, follow-up labs on 03/31/2024, monitor for edema/fluid overload Assessment & Plan (06/19/2024 11:50 PM CDT): Renal function stable, BUN/creatinine 25/1.25 with a GFR 48 Assessment & Plan (06/14/2024 11:15 AM CDT): Renal function about at baseline, BUN/creatinine 41/1.33 with EGFR of 44. Continue to monitor Acute encephalopathy 06/10/2024 025 Acute exacerbation of chronic low back pain 05/30/2024 09/12/2024 Assessment & Plan (06/14/2024 11:00 AM CDT): Assessment & Plan (06/10/2024 2:53 PM CDT): Continue gabapentin. Consult physical and occupational therapy. I have ordered Gatzke 5 over 3-5 every 6 hours p.r.n. pain because the patient complains of uncontrolled low back pain. Encounter for screening colonoscopy 05/02/2024 06/10/2024 Type 2 diabetes mellitus wit h diabetic microalbuminuria, with long-term current use of insulin 04/29/2024 08/06/2024 Type 2 diabetes mellitus wit h hyperglycemia, with long-term current use of insulin 09/18/2023 Assessment & Plan (04/26/2024 3:39 PM CDT): Diabetes remains poorly controlled. Needs improvement. Work on diabetic diet and exercise. Continue medications and work closely with Endocrinology to get A1c under better control Assessment & Plan (04/18/2024 11:11 AM CDT): This is a chronic condition which is not at goal, uncontrolled. Due to Lack of insulin . Goal is less than 7%. Personally reviewed most recent A1c - Lab Results Component Value Date HGBA1C 10.2 04/18/2024 This morning she took 60 units of NovoLog without checking her blood sugar. Her blood sugars was in the 60s upon arrival to the office she was sweaty and weak. She was provided with 8 glucose tablets and 4 oz of apple juice. Prior to leaving her blood sugar was up in the 90s. Personally reviewed POC blood sugar- not at goal of 80-180 Lab Results Component Value Date POCGLU 67 04/18/2024 Medication- Continue Soliqua 50 units daily- received from patient assistance. Take Novolog 3 times a day prior to meals. If blood sugar less than 100 take 0 units If blood sugar 100-125 - take 30 units If blood sugar 125-200 - 45 units If blood sugar >200 - take 50 units If blood sugar >250 - take 55 units If blood sugar >300 - take 60 units Monitor blood sugar 3 times a day times a day. Continuously with Dexcom cgm. Encouraged not to take insulin if she did not check her blood sugar Encouraged annual eye exam. eGFR- 55 Kidney function-abnormal Urine microalbumin/creatinine ratio - abnormal. Goal is <30 Continue amlodipine, chlorthalidone, losartan, metoprolol Assessment & Plan (01/24/2024 7:12 PM CDT): Chronic. Needs improvement. Continue diabetic medication. Work closely with Endocrinology Assessment & Plan (12/29/2023 3:12 PM CDT): This is a chronic condition which is Improving but still not at goal due to lack of fast acting insulin . Goal is less than 7%. Personally reviewed most recent A1c - Lab Results Component Value Date HGBA1C 10.2 12/29/2023 Personally reviewed POC blood sugar- at goal of 80-180 Lab Results Component Value Date POCGLU 177 12/29/2023 Medication- continue xultophy 50 units daily. (Received from Patient assistance from [employer] program). change Humalog U200 to Fiasp 60 units 3 times a day prior to meals. Monitor blood sugar continuously with cgm. Monofilament foot exam completed. Loss of protective senses Treated with Gabapentin Personally reviewed CMP eGFR- 55 Kidney function- abnormal Urine microalbumin/creatinine ratio - abnormal. Goal is <30 Continue amlodipine, chlorthalidone, losartan, metoprolol Assessment & Plan (09/18/2023 5:55 PM CAUSTIC PURIFICATION OPERATOR): Chronic. Very poorly controlled on last A1c. Continue work with endocrinology. Really needs to work on diabetic diet and lifestyle. Patient declined referral for perinatal educator today Peripheral angiopathy due to DM 07/18/2023 10/28/2024 Assessment & Plan (01/24/2024 7:10 PM CDT): Continue atorvastatin and ezetimibe. Continue working on trying to keep cholesterol controlled. Continue risk factor modification with Clopidogrel as well as low- dose Xarelto. Has had prior vascular interventions. 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 Continue risk factor modification. Works with Interventional Cardiology as well as endocrinology. Continue cholesterol medications. Needs to work with endocrinology to get diabetes better controlled PVD (peripheral vascular disease) 06/15/2023 09/18/2023 Transaminitis 03/30/2023 04/26/2024 Overview (03/30/2023): Present all the way back to original labs in 2017 with mild elevation to alkaline phosphatase and ALT. CT abdomen and pelvis in 2017 did not show signs of fatty liver disease. Prior screen for viral hepatitis-A, B, C were negative. Ferritin was elevated June 2022 but associated iron panel showed actual iron-deficiency so was likely being elevated due to being acute phase reaction and not true iron overload. Unlikely to be statin related as she was not on cholesterol medication in 2017 May need to consider liver ultrasound in the future to further assess says not had imaging since 2017. Assessment & Plan (01/24/2024 7:13 PM CDT): Mild low-level elevation. We will need to continue to monitor. Chest pain 03/01/2023 06/14/2023 Atherosclerosis of arteries of extremities 03/01/2023 10/28/2024 Assessment & Plan (07/14/2024 8:53 PM CAUSTIC PURIFICATION OPERATOR): Currently at baseline, continue aspirin, atorvastatin, Zetia, blood pressure control. Assessment & Plan (06/10/2024 2:49 PM CDT): Wound care to follow. Continue aspirin and atorvastatin Assessment & Plan (01/24/2024 7:12 PM CDT): Chronic. Continue risk factor modification with low-dose Xarelto as well as high-intensity atorvastatin Assessment & Plan (09/18/2023 5:50 PM CAUSTIC PURIFICATION OPERATOR): Patient has a significant amount of peripheral arterial disease. She has had prior interventions on both lower extremities with Interventional Cardiology. Continue risk factor modification Assessment & Plan (06/14/2023 6:43 PM CDT): Bilateral lower extremities. Prior intervention on the left lower extremity. Recent right lower extremity intervention failed. Sees [facility]. Continue low-dose Xarelto and cholesterol medications. LDL goal less than 70 Obesity 12/12/2022 08/06/2024 Assessment & Plan (06/10/2024 2:51 PM CDT): Dietary to follow Assessment & Plan (04/26/2024 3:42 PM CDT): Obesity needs improvement. Unable to get accurate weight today due to patient's wheelchair status. Encouraged healthy diet, exercise and weight loss. Assessment & Plan (09/18/2023 5:51 PM CAUSTIC PURIFICATION OPERATOR): Chronic. Suboptimally controlled. Encouraged healthy diet and lifestyle. Encouraged weight loss Assessment & Plan (06/14/2023 6:46 PM CDT): Chronic. Suboptimally controlled. Encouraged healthy diet, exercise as able as well as weight loss Asymptomatic COVID-19 virus infection 09/09/2022 12/12/2022 Assessment & Plan (09/10/2022 10:09 AM CAUSTIC PURIFICATION OPERATOR): Patient is asymptomatic. No treatment necessary at this time. Isolation precautions put in place. 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 Plan: - continue aspirin 81 mg daily and Xarelto 2.5 mg b.i.d. Gangrene 06/28/2022 06/14/2023 Overview (07/12/2022): Added automatically from request for surgery [id number] Dyslipidemia 07/06/2019 09/12/2024 Assessment & Plan (06/25/2021 4:10 PM CDT): This is a chronic condition which is not at goal. Goal is less than 70. Personally reviewed lipid panel from care everywhere (07/31/20). Personally reviewed LDL - 85 increased atorvastatin 20mg daily. Not at goal of less than 70 Encouraged to eat healthy, include fresh fruits and vegetables daily and avoid eating fried foods more than once per week. Please take medications as prescribed. Assessment & Plan (12/07/2020 12:47 PM CDT): This is a chronic condition which is not at goal. Goal is less than 70. Personally reviewed lipid panel from care everywhere (07/31/20). Personally reviewed LDL - 85 increased atorvastatin 20mg daily. Not at goal of less than 70 Encouraged to eat healthy, include fresh fruits and vegetables daily and avoid eating fried foods more than once per week. Please take medications as prescribed. See dietitian as scheduled. Chronic cholecystitis 02/09/20182022 Osteomyelitis of left foot (CMS/HCC) 05/18/2017 09/06/2022 Chronic back pain 06/13/2013 10/28/2024 Degeneration of lumbar or mike mbosacral intervertebral disc 08/31/2012 10/28/2024 Osteoarthritis 08/21/2012 09/12/2024 Encounters Date Type Department Care Team Description 03/12/2025 10:00 AM CDT Orders Only [address] [address] 03/09/2025 Results Follow-Up [facility] Primary Care at [address] [phone] Burton Akhtar MD Thyroid Function [place], Hemoglobin A1c, Lipid panel, Additional followed-up results: 4 03/07/2025 12:30 PM CDT Lab [facility] Outpatient Lab at [address] [phone] 03/07/2025 12:21 PM CDT - 03/07/2025 11:59 PM CDT Hospital Encounter [address] [address] Type 2 diabetes mellitus with diabetic polyneuropathy, with long-term current use of insulin ([facility]) Discharge Disposition: Discharge to home or self care 03/05/2025 10:00 AM CDT Orders Only [address] [address] 03/05/2025 Telephone [facility] [id number] [place] [address] [address] [phone] Lynne Astorga MD 03/03/2025 11:42 AM CDT - 03/03/2025 11:59 PM CDT Hospital Encounter [address] [address] Type 2 diabetes mellitus with diabetic polyneuropathy, with long-term current use of insulin (HCC); Mixed diabetic hyperlipidemia associated with type 2 diabetes mellitus (HCC); Hypertension associated with type 2 diabetes mellitus (HCC) Discharge Disposition: Discharge to home or self care 03/03/2025 11:42 AM CDT - 03/03/2025 11:59 PM CDT Hospital Encounter [address] [address] Type 2 diabetes mellitus with diabetic polyneuropathy, with long-term current use of insulin (HCC); Stage 3a chronic kidney disease (HCC); Hypertension associated with diabetes (HCC) Discharge Disposition: Discharge to home or self care 03/03/2025 11:30 AM CDT Lab [facility] Outpatient Lab at [address] [phone] 03/03/2025 11:30 AM CDT Office Visit [facility] Endocr[facility]ology [address] [place] [phone] Lynne Astorga MD Type 2 diabetes mellitus with diabetic polyneuropathy, with long-term current use of insulin (HCC) (Primary Dx); Stage 3a chronic kidney disease (HCC); Hyperlipidemia associated with type 2 diabetes mellitus (HCC); Hypertension associated with diabetes (HCC); Class 2 severe obesity due to excess calories with serious comorbidity and body mass index (BMI) of 37.0 to 37.9 in adult ([facility]); S/P BKA (below knee amputation), left ([facility]) 03/03/2025 Telephone [facility] [id number] [place] [address] [address] [phone] Lynne Astorga MD 02/26/2025 10:00 AM CDT Orders Only [facility] [address] [place] [phone] 02/24/2025 Telephone [facility] Diabetes Endocrine [facility] at [place] [address] [place] [phone] Rola Mae, LICENSE AND PERMIT SPECIALIST 02/17/2025 Telephone [facility] Endocrine Care at [address] [phone] Rola Mae, JETT 02/12/2025 10:00 AM CDT Orders Only [facility] [address] [place] [address] 02/05/2025 10:00 AM CDT Orders Only [address] [address] 01/22/2025 Telephone [facility] Primary Care at [address] [phone] Burotn Akhtar MD Medical Question/Miscellaneous 01/15/2025 10:00 AM CDT Orders Only [address] [address] 01/10/2025 9:15 AM CDT Office Visit [facility] Primary Care at [address] [phone] Burton Akhtar MD Type 2 diabetes mellitus with diabetic polyneuropathy, with long-term current use of insulin ([facility]) (Primary Dx); Hypertension associated with type 2 diabetes mellitus ([facility]); Mixed diabetic hyperlipidemia associated with type 2 diabetes mellitus ([facility]); Tobacco use disorder; Drug-induced constipation; Bipolar 1 disorder, depressed ([facility]); Mixed action and resting tremor; Left hand pain; Dependence on wheelchair; PAD (peripheral artery disease); History of colon polyps 01/08/2025 10:00 AM CDT Orders Only [address] [address] 01/01/2025 10:00 AM CDT Orders Only [address] [address] 12/26/2024 Telephone [facility] Primary Care at [address] [phone] Burton Akhtar MD Additional Services Or Orders; Call Back 12/25/2024 10:45 AM CDT - 12/25/2024 11:59 PM CDT Hospital Encounter [facility] [address] [place] [address] Pain in right foot; PAD (peripheral artery disease); Type 2 diabetes mellitus with diabetic polyneuropathy, with long-term current use of insulin ([facility]) Discharge Disposition: Discharge to home or self care 12/25/2024 10:00 AM CDT Orders Only [facility] [address] [place] [address] 12/25/2024 Results Follow-Up General Surgery Fatuma Stone V., JETT XR Calcaneus Right 2 or More Views 12/25/2024 Orders Only General Surgery Fatuma Stone NP Pain in right foot (Primary Dx); PAD (peripheral artery disease); Type 2 diabetes mellitus with diabetic polyneuropathy, with long-term current use of insulin ([facility]) 12/18/2024 10:00 AM CDT Orders Only [facility] [address] [place] [address] from Last 3 Months Immunizations Immunization Administration Dates Next Due Influenza, Quadrivalent, Spl it, Preservative Free, Intramuscular 07/12/2022(Deferred: Patient Refused) Influenza, Trivalent, High D ose, Split, Preservative Free, Intramuscular 06/09/2024 Influenza, Trivalent, IM (MDV) 06/17/2014 Influenza, Trivalent, Preser vative Free, Intramuscular 06/17/2014 Influenza, Unspecified 04/26/2024(Deferred: Angelita ent Refused) Pfizer SARS-CoV-2 Monovalent Vaccination (12+ Yrs) PURPLE 10/20/2020 Tdap 06/14/2023 Surgical History Surgery Date Site/Laterality Comments [facility] W/O FACETEC FORAMOT/D SC 1/2 VRT SGM CRV Laminectomy Lumbar - (Added by TW Conv) KNEE SURGERY Knee Surgery - (Added by TW Conv) CHOLECYSTECTOMY SPINE SURGERY AMPUTATION FOOT / TOE Left INCISION AND DRAINAGE ABSCES S POSTERIOR THORACIC SPINE BELOW KNEE LEG AMPUTATION Left SMALL INTESTINE SURGERY Medical History Medical History Date Comments Personal history of other me ntal and behavioral disorders History of depression - (Add ed by TW Conv) Personal history of other en docrine, nutritional and metabolic disease History of diabetes mellitus - (Added by TW Conv) Personal history of other di seases of the circulatory system History of hypertension - (A dded by TW Conv) Dyslipidemia 07/06/2019 Diabetes ([facility]) Unstable angina (HCC) 09/03/2022 Hypertension Sleep apnea 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, with necrosis of bone (HCC) 08/31/2022 Gangrene ([facility]) 06/28/2022 Added automatica lly from request for surgery [id number] Peripheral arterial disease PONV (postoperative nausea a nd vomiting) Motion sickness Depression Alcohol abuse Arthritis Osteoporosis Meningitis Chronic kidney disease Neuromuscular disorder (HCC) Mixed conductive and sensori neural hearing loss Infection PVD (peripheral vascular disease) Cataracts, bilateral Family History Medical History Relation Name Comments Alcohol abuse Father Juliocesar Yo Arthritis Father Juliocesar Yo Depression Father Juliocesar Yo Early Father Juliocesar Yo Hearing loss Father Juliocesar Yo Heart attack Father Juliocesar Yo Heart disease Father Juliocesar Yo Hypertension Father Juliocesar Yo Learning disabilities Father Juliocesar Yo Mental illness Father Juliocesar oY Obesity Father Juliocesar Yo Obesity Maternal Grandfather Bud Darby Obesity Maternal Grandmother Cassi Darby Stroke Maternal Grandmother Cassi Darby Diabetes Mother Geri Yo Hearing loss Mother Geri Yo Hypertension Mother Geri Yo Memory loss Mother Geri Yo Obesity Mother Geri Yo heart palpatations Mother Geri Yo Diabetes Other 1 Family history of diabetes mellitus - (Added by TW Conv) Hypertension Other 2 Family history of hypertension - (Added by TW Conv) Coronary artery disease Other 3 Fami ly history of coronary artery disease - (Added by TW Conv) Heart failure Other 4 Family history of congestive heart failure - (Added by TW Conv) Hypertension Sister 2 Allyn Mccoy Obesity Sister 2 Allyn Mccoy Relation Name Status Comments Father Juliocesar Yo Maternal Grandfather Bud Darby Maternal Grandmother Cassi Darby Mother Geri Yo Alive Other 1 Other 2 Other 3 Other 4 Sister 1 Alive Sister 2 Allyn Mccoy Social History Tobacco Use Types Packs/Day Years Used Date Smoking Tobacco: Some Days Cigarettes Last attempted to quit: 1957 Smokeless Tobacco: Never Tobacco Cessation:Ready to Q uit: Not Asked; Counseling Given: Not Answered Comments:Julien july 2022 Alcohol Use Standard Drinks/Week [...] materials from doctor or pharmacy Never 05/02/2023 [facility] Utilities Answer Date Recorded In the past 12 months has e [employer], gas, oil, or water [employer] threatened to shut off services in your home? No 08/23/2024 Social Connection and Isolation Panel [NHANES] A nswer Date Recorded In a typical week, how many times do you talk on the phone with family, friends, or neighbors? Twice a week 08/23/2024 How often do you get together with friends or re latives? Once a week 08/23/2024 How often do you attend zoroastrian or yarsanism serv ices? Never 08/23/2024 Do you belong to any clubs o r organizations such as zoroastrian groups, unions, fraternal or athletic groups, or [...] place to sleep or slept in a mcfp (including now)? No 07/01/2022 PHQ-9 Answer Date [...] in the past 12 m [facility], were you homeless or living in a mcfp (including now)? No 08/23/2024 Personal Safety Answer [...] on file Legal Sex Female 10:33 AM CAUSTIC PURIFICATION OPERATOR Gender Identity Female 11/26/2022 1:44 AM CDT Sexual Orientation Straight 11/26/2022 1: 44 AM CDT Obstetrics History Last Filed Vital Signs Vital Sign Reading Time Taken Comments Blood Pressure 138/72 03/03/2025 10:57 AM CDT Pulse 76 03/03/2025 10:57 AM CDT Temperature 36.8 C (98.2 F) 01/10/2025 9:27 AM CDT Respiratory Rate 17 03/03/2025 10:5 7 AM CDT Oxygen Saturation 96% 01/10/2025 9:27 AM CDT Inhaled Oxygen Concentration - - Weight 133.4 kg (294 lb 1.5 oz) 08/23/2024 2:59 PM CAUSTIC PURIFICATION OPERATOR Height 188 cm (6' 2) 03/03/2025 10:57 AM CDT Body Mass Index 37.76 08/23/2024 2:59 PM CAUSTIC PURIFICATION OPERATOR Plan of Treatment Health Maintenance Due Date Last Done Comments Breast Cancer Screening-Mammogram 1955 Osteoporosis Screening-Bone Density Scan 1955 Pneumococcal vaccine 65+ (1 of 2 - PCV) 1976 Zoster Vaccine (1 of 2) 10/20/2007 Covid-19 Vaccine (4 - 2023-2 5 season) 2024 10/12/2021, 11/11/2020, 10/20/2020 Foot Exam 04/18/2025 04/18/2024, 12/19, 06/28/2023, Additional history exists Influenza Vaccine (#1) 2025 , 06/17/2014, 06/17/2014 Well Visit 65+ 04/26/2025 04/26/2024 Hemoglobin A1C 09/03/2025 03/03/2025, 02/18, 08/24/2024, Additional history exists Depression Screening 01/10/2026 01/10/2025, 09/12/2024, 04/26/2024, Additional history exists Fall Risk Assessment 01/10/2026 01/10/2025, 09/12/2024, 08/27/2024, Additional history exists Dilated Eye Exam 01/14/2026 01/14/2025, 09/2023, 07/15/2019 Lipid Panel 03/03/2026 03/03/2025, 03/22, 03/29/2023, Additional history exists eGFR 03/03/2026 03/03/2025, 02/18, 08/27/2024, Additional history exists Albumin Creatinine Ratio, Urine 03/07/2026 03/07/2025, 04/29/2024, 07/16/2022, Additional history exists Colon Cancer Screening-Colonoscopy 09/07/2031 09/07/2021 DTaP/Tdap/Td Vaccine (2 - Td or Tdap) 06/14/2033 06/14/2023 Colon Cancer Screening-CT Colonography Discontinued 09/07/2021 Colon Cancer Screening-DNA Stool Discontinued 09/07/19 Colon Cancer Screening-FIT Discontinued 09/07/2021 Colon Cancer Screening-Sigmoidoscopy Discontinued 09/07/2021 Hepatitis C Screening Completed 07/17/2022 Hepatitis B Screening Completed 04/29/2024 Goals Goal Patient Goal Type Associated Problems Recent Progress Patient-Stated? Author PRIYANKA General Goal - Patient / caregiver verbalizes lifestyle changes necessary to meet self-care needs and executes self-care activities to utmost capability ACO Care Management On track(2024 10:05 AM CDT) Lula Barber, RN Note: Problem: At Risk for Self Care [...] AM CDT) Lula Barber, JES Note: Problem: Knowledge deficit related to signs [...] take, when to call CM or provider. Medical Devices Implanted Type Area Production Internship Device Identifier Shelf Expiration Date Model / Serial / Lot Med[employer]onic [employer] Everflex Entrust 7mm 150mm 120cm Self Expand Delivery System Low - [id number] - [id number] Implanted:Qty: 1 on 06/29/2022 by Tha Arzate MD at [facility] Stent Left: Superficial Femoral Artery [employer] 10/09/2023 [id number] 150-120 / [id number] / [id number] Med[employer] Everflex Entrust 7mm 150mm 120cm Self Expand Delivery System Low - [id number] - [id number] Implanted:Qty: 1 on 07/06/2022 by Tha Arzate MD at [facility] Stent Left: Superficial Femoral Artery [employer]onic Inc 03/22/2025 [id number] 150-120 / [id number] / [id number] Med[employer]onic Inc Stent Peripheral Biliary Over The Wire Protege Everflex [id number] Nitinol [id number] - [id number] Implanted:Qty: 1 on 07/18/2023 by Tha Arzate MD at [facility] [employer] 03/12/2024 [id number] 200-120 / / [id number] Procedures Procedure Name Priority Date/Time Associated Diagnosis Comments ALBUMIN CREATININE RATIO, URINE Routine 03/07/2025 12:21 PM CDT Type 2 diabetes mellitus with diabetic polyneuropathy, with long-term current use of insulin (HCC) EGFR Routine 03/03/2025 11:42 AM CDT Type 2 diabetes mellitus with diabetic polyneuropathy, with long-term current use of insulin (HCC) Stage 3a chronic kidney disease (HCC) Hypertension associated with diabetes (HCC) EGFR Routine 03/03/2025 11:42 AM CDT Type 2 diabetes mellitus with diabetic polyneuropathy, with long-term current use of insulin (HCC) Hypertension associated with type 2 diabetes mellitus (HCC) DIFFERENTIAL AUTO Routine 03/03/2025 11:42 AM CDT Type 2 diabetes mellitus with diabetic polyneuropathy, with long-term current use of insulin (HCC) Hypertension associated with type 2 diabetes mellitus (HCC) CBC WITH AUTO DIFFERENTIAL Routine 03/03/2025 11:42 AM CDT Type 2 diabetes mellitus with diabetic polyneuropathy, with long-term current use of insulin (HCC) Hypertension associated with type 2 diabetes mellitus (HCC) COMPREHENSIVE METABOLIC PANEL Routine 03/03/2025 11:42 AM CDT Type 2 diabetes mellitus with diabetic polyneuropathy, with long-term current use of insulin (HCC) Hypertension associated with type 2 diabetes mellitus (HCC) LIPID PANEL Routine 03/03/2025 11:42 AM CDT Type 2 diabetes mellitus with diabetic polyneuropathy, with long-term current use of insulin (HCC) Mixed diabetic hyperlipidemia associated with type 2 diabetes mellitus (HCC) HEMOGLOBIN A1C Routine 03/03/2025 11:42 AM CDT Type 2 diabetes mellitus with diabetic polyneuropathy, with long-term current use of insulin (HCC) THYROID FUNCTION CASCADE Routine 03/03/2025 11:42 AM CDT Type 2 diabetes mellitus with diabetic polyneuropathy, with long-term current use of insulin (HCC) COMPREHENSIVE METABOLIC PANEL Routine 03/03/2025 11:42 AM CDT Type 2 diabetes mellitus with diabetic polyneuropathy, with long-term current use of insulin (HCC) Stage 3a chronic kidney disease (HCC) Hypertension associated with diabetes (HCC) POCT HEMOGLOBIN A1C Routine 03/03/2025 11:02 AM CDT Type 2 diabetes mellitus with diabetic polyneuropathy, with long-term current use of insulin (HCC) POCT GLUCOSE Routine 03/03/2025 10:59 AM CDT Type 2 diabetes mellitus with diabetic polyneuropathy, with long-term current use of insulin (HCC) DIABETES EYE EXAM Routine 01/14/2025 XR CALCANEUS RIGHT 2 OR MORE VIEWS Schedule Routine, Read Routine (OP Routine) 12/25/2024 11:02 AM CDT Pain in right foot PAD (peripheral artery disease) Type 2 diabetes mellitus with diabetic polyneuropathy, with long-term current use of insulin (HCC) HEPATITIS PANEL, ACUTE Routine 07/17/2022 6:03 AM CAUSTIC PURIFICATION OPERATOR COLONOSCOPY Routine 09/07/2021 from Last 3 Months or Most Recently Relevant to Health Maintenance Results * (ABNORMAL) Albumin Creatinine Ratio, Urine (03/07/2025 12:21 PM CDT) Albumin Ur 149.3 mg/L Comment: Interpretive Data No reference range established. Current interpretive data was last revised 2019. Creatinine Ur 42.7 mg/dL [facility] Comment: Interpretive Data No reference range established. Current interpretive data was last revised 2019. Albumin Creatinine Ratio, Ur 350(H) 1 - 29 mg/g [facility] Urine 03/07/2025 12:2 1 PM CDT 03/07/2025 7:58 PM CDT us Lynne Hutchison MD LAB URINE ORDERABLE S Final Result [facility] [address] [facility] [place] [address] * eGFR (03/03/2025 11:42 AM CDT) eGFR 67 >=60 mL/min/1. 73 m2 Comment: Interpretive Data Reference Interval Normal >/= 90 mL/min/1.73m2 Mildly decreased* 60 - 89 mL/min/1.73m2 Mildly to moderately decreased 45 - 59 mL/min/1.73m2 Moderately to severely decreased 30 - 44 mL/min/1.73m2 Severely decreased 15 - 29 mL/min/1.73m2 Kidney Failure < 15 mL/min/1.73m2 *Relative to young adult level Estimated glomerular filtration rate is determined by the 2020 CKD-EPI equation recommended by the National Kidney Foundation (A Unifying Approach to GFR Estimation: Recommendations of the NKF-ASK Task Force on Reassessing the Inclusion of Race in Diagnosing Kidney Disease, JASN 2021). The CKD-EPI equation should not be used for patients with unstable renal function and has not been validated in children and those over 70. Current interpretive data was last reviewed 2021. Blood 03/03/2025 11:4 2 AM CDT 03/03/2025 8:14 PM CDT us Shajija Foster Hutchison MD LAB BLOOD ORDERABLE S Final Result [facility] [id number] [place] [address] * eGFR (03/03/2025 11:42 AM CDT) eGFR 80 >=60 mL/min/1. 73 m2 Comment: Interpretive Data Reference Interval Normal >/= 90 mL/min/1.73m2 Mildly decreased* 60 - 89 mL/min/1.73m2 Mildly to moderately decreased 45 - 59 mL/min/1.73m2 Moderately to severely decreased 30 - 44 mL/min/1.73m2 Severely decreased 15 - 29 mL/min/1.73m2 Kidney Failure < 15 mL/min/1.73m2 *Relative to young adult level Estimated glomerular filtration rate is determined by the 2020 CKD-EPI equation recommended by the National Kidney Foundation (A Unifying Approach to GFR Estimation: Recommendations of the NKF-ASK Task Force on Reassessing the Inclusion of Race in Diagnosing Kidney Disease, JASN 2021). The CKD-EPI equation should not be used for patients with unstable renal function and has not been validated in children and those over 70. Current interpretive data was last reviewed 2021. Blood 03/03/2025 11:4 2 AM CDT 03/03/2025 8:14 PM CDT us Burton Akhtar MD LAB BLOOD ORDERABLES Fi nal Result [facility] [address] [place] [address] * Differential, auto (03/03/2025 11:42 AM CDT) Neutrophil abs 5.61 1.50 - 6.50 K/cumm Imm gran abs 0.01 0.00 - 0.10 K/cumm [facility] Lymphocyte abs 1.28 0.80 - 3.30 K/cumm [facility] Monocyte abs 0.57 0.20 - 0.80 K/cumm [facility] Eosinophil abs 0.23 0.00 - 0.50 K/cumm [facility] Basophil abs 0.05 0.00 - 0.10 K/cumm [facility] Neutrophil pct 72.4 % [facility] Comment: Interpretive Data Percent cell count reference ranges are not reported, since discordance with absolute values may lead to misinterpretation of CBC data. Current Interpretive Data was last revised on 2017. Imm gran pct 0.1 % [facility] Comment: Interpretive Data Percent cell count reference ranges are not reported, since discordance with absolute values may lead to misinterpretation of CBC data. Current Interpretive Data was last revised on 2017. Lymphocyte pct 16.5 % [facility] Comment: Interpretive Data Percent cell count reference ranges are not reported, since discordance with absolute values may lead to misinterpretation of CBC data. Current Interpretive Data was last revised on 2017. Monocyte pct 7.4 % [facility] Comment: Interpretive Data Percent cell count reference ranges are not reported, since discordance with absolute values may lead to misinterpretation of CBC data. Current Interpretive Data was last revised on 2017. Eosinophil pct 3.0 % [facility] Comment: Interpretive Data Percent cell count reference ranges are not reported, since discordance with absolute values may lead to misinterpretation of CBC data. Current Interpretive Data was last revised on 2017. Basophil pct 0.6 % [facility] Comment: Interpretive Data Percent cell count reference ranges are not reported, since discordance with absolute values may lead to misinterpretation of CBC data. Current Interpretive Data was last revised on 2017. Blood 03/03/2025 11:4 2 AM CDT 03/03/2025 8:13 PM CDT Burton Akhtar MD LAB BLOOD ORDERABLES Fi nal Result Performing Organization Address City/[facility]/ZIP Co de Phone Number [facility] [address] [place], [place] [id number] * Thyroid Function [place] (03/03/2025 11:42 AM CDT) [facility] TSH 1.54 0.30 - 4.20 mcIUnit/mL Blood 03/03/2025 11:4 2 AM CDT 03/03/2025 8:13 PM CDT Burton Akhtar MD LAB BLOOD ORDERABLES Fi nal Result Performing Organization Address [facility] Co de Phone Number [facility] [address] [facility] [place] [address] * (ABNORMAL) CBC with auto differential (03/03/2025 11:42 AM CDT) Pathologist [facility] WBC 7.75 3.80 - 9.90 K/cumm Hgb 11.4(L) 11.9 - 15.5 g/dL [facility] Hct 38.6 35.6 - 45.5 % [facility] Plt 135(L) 150 - 400 K/cumm [facility] MPV 11.6 9.1 - 12.3 fL [facility] RBC 4.07 3.90 - 5.20 M/cumm [facility] MCV 94.8 81.3 - 96.4 fL [facility] MCH 28.0 27.1 - 33.3 pg [facility] MCHC 29.5(L) 32.3 - 35.7 g/dL [facility] RDW CV 16.0(H) 11.1 - 14.9 % [facility] RDW SD 56.1(H) 35.7 - 48.1 fL [facility] NRBC abs 0.00 0.00 - 0.01 K/cumm [facility] Blood 03/03/2025 11:4 2 AM CDT 03/03/2025 8:13 PM CDT Burton Akhtar MD LAB BLOOD ORDERABLES nal Result Performing Organization Address [facility] de Phone Number [facility] [address] [place] [address] * (ABNORMAL) Hemoglobin A1c (03/03/2025 11:42 AM CDT) Hgb A1C 6.7(H) 4.0 - 5.6 % Estimated Average Glucose 146 mg/dL [facility] Comment: The ADA recommends reporting an estimated Average Glucose (eAG) with all Hemoglobin A1c results using the equation derived from a study of 507 normal and diabetic adults. Minority populations were underrepresented and children were not included. (Diabetes Care 31:7213-8951, 2008). The eAG is not equivalent to a fasting glucose. Blood 03/03/2025 11:4 2 AM CDT 03/03/2025 8:13 PM CDT Burton Akhtar MD LAB BLOOD ORDERABLES nal Result Performing Organization Address [facility] Co de Phone Number [facility] [address] [employer] [place], [place] [id number] * (ABNORMAL) Lipid panel (03/03/2025 11:42 AM CDT) Cholesterol 138 30 - 199 mg/dL Comment: Interpretive Data Ages < or = 19 years Acceptable: <170 mg/dL Borderline high: 170-199 mg/dL High: >or= 200 mg/dL Ages > or = 20 years Desirable: <200 mg/dL Borderline high: 200-239 mg/dL High: >or= 240 mg/dL Literature References: 1. Expert Panel on Integrated Guidelines for Cardiovascular Health and Risk Reduction in Children and Adolescents. Pediatrics 2011;128:S213 2. NCEP Expert Panel. Circulation 2004;110:227 Current Interpretive Data was last revised on 2018. Triglycerides 249(H) <=149 mg/dL [facility] Comment: Interpretive Data Ages < or = 9 years Acceptable: <75 mg/dL Borderline high: 75-99 mg/dL High: >or= 100 mg/dL Ages 10 to 20 years Acceptable: <90 mg/dL Borderline high: 90-129 mg/dL High: >or= 130 mg/dL Ages > or = 20 years Desirable: <150 mg/dL Borderline high: 150-199 mg/dL High: 200-499 mg/dL Very high: >or= 499 mg/dL Literature References: 1. Expert Panel on Integrated Guidelines for Cardiovascular Health and Risk Reduction in Children and Adolescents. Pediatrics 2011;128:S213 2. NCEP Expert Panel. Circulation 2004;110:227 Current Interpretive Data was last revised on 2018. HDL 44 >=40 mg/dL [facility] Comment: Interpretive Data Ages < or = 19 years Acceptable: >45 mg/dL Borderline low: 40-45 mg/dL Low: <40 mg/dL Ages > or = 20 years Desirable: >or= 60 mg/dL Low: <40 mg/dL Literature References: 1. Expert Panel on Integrated Guidelines for Cardiovascular Health and Risk Reduction in Children and Adolescents. Pediatrics 2011;128:S213 2. NCEP Expert Panel. Circulation 2004;110:227 Current Interpretive Data was last revised on 2018. LDL, calculated 55 <=129 mg/dL [facility] Comment: Interpretive Data Ages < or = 19 years Acceptable: <110 mg/dL Borderline high: 110-129 mg/dL High: >or= 130 mg/dL Ages > or = 20 years Optimal: <100 mg/dL Near optimal: 100-129 mg/dL Borderline high: 130-159 mg/dL High: >160 mg/dL Calculated using the Dozier LDL-C estimating equation. This equation was implemented on 2024. Prior to this date LDL-C was estimated using the Friedewald equation. Literature References: 1. Expert Panel on Integrated Guidelines for Cardiovascular Health and Risk Reduction in Children and Adolescents. Pediatrics 2011;128:S213 2. NCEP Expert Panel. Circulation 2004;110:227 3. Jacoby M et al. NANDA Cardiol. 2020 December 19;5(5):540-548. doi: 10.1001/jamacardio.2020.0013 Current Interpretive Data was last revised on 2024. Non-HDL Cholesterol 94 mg/dL [facility] Comment: Interpretive Data Ages < or = 19 years Acceptable: <120 mg/dL Borderline high: 120-144 mg/dL High: >145 mg/dL Ages > or = 20 years When triglycerides are >200 mg/dL, Non-HDL cholesterol is a secondary target of therapy with treatment goals that are 30 mg/dL greater than the LDL cholesterol target. Literature References: 1. Expert Panel on Integrated Guidelines for Cardiovascular Health and Risk Reduction in Children and Adolescents. Pediatrics 2011;128:S213 2. NCEP Expert Panel. Circulation 2004;110:227 Current Interpretive Data was last revised on 2018. Chol/HDL ratio 3 [facility] Blood 03/03/2025 11:4 2 AM CDT 03/03/2025 8:13 PM CDT Narrative [facility] - 03/03/2025 8:37 PM CDT Has the patient been fasting for 8 hours or more?->No us Burton Akhtar MD LAB BLOOD ORDERABLES Fi nal Result [facility] [address] Department [place] [address] * (ABNORMAL) Comprehensive metabolic panel (03/03/2025 11:42 AM CDT) Sodium 142 135 - 145 mmol/L Potassium, pl 4.1 3.3 - 4.9 mmol/L [facility] Chloride 105 97 - 110 mmol/L [facility] CO2 24 22 - 32 mmol/L [facility] Anion gap 13 2 - 15 mmol/L [facility] BUN 29(H) 6 - 25 mg/dL [facility] Creatinine 0.81 0.60 - 1.10 mg/dL [facility] Glucose 200(H) 70 - 199 mg/dL [facility] Comment: Interpretive Data Fasting glucose >/= 126 mg/dl is diagnostic for diabetes. Fasting is defined as no caloric intake for at least 8 hours. Fasting glucose between 100 mg/dl to 125 mg/dl is diagnostic of prediabetes. In a patient with classic symptoms of hyperglycemia or hyperglycemic crisis, a random glucose >/= 200 mg/dl is diagnostic for diabetes. In the absence of unequivocal hyperglycemia, results should be confirmed by repeat testing. The classification and Diagnosis of Diabetes Diabetes Care 2021; 46: S19-S40. Current interpretive data was last revised 2022. Calcium 10.4(H) 8.5 - 10.3 mg/dL [facility] Bilirubin, total 0.3 0.1 - 1.2 mg/dL [facility] Protein, pl 7.2 6.5 - 8.5 g/dL [facility] Albumin 3.8 3.5 - 5.0 g/dL [facility] Alk phos 115 40 - 130 Units/L [facility] ALT 21 7 - 45 Units/L [facility] AST 22 10 - 45 Units/L [facility] Blood 03/03/2025 11:4 2 AM CDT 03/03/2025 8:13 PM CDT Burton Akhtar MD LAB BLOOD ORDERABLES nal [facility] [address] Department [place] [address] * (ABNORMAL) Comprehensive metabolic panel (03/03/2025 11:42 AM CDT) [facility] Sodium 141 135 - 145 mmol/L Potassium, pl 4.3 3.3 - 4.9 mmol/L [facility] Chloride 106 97 - 110 mmol/L [facility] CO2 23 22 - 32 mmol/L [facility] Anion gap 12 2 - 15 mmol/L [facility] BUN 29(H) 6 - 25 mg/dL [facility] Creatinine 0.94 0.60 - 1.10 mg/dL [facility] Glucose 201(H) 70 - 199 mg/dL [facility] Comment: Interpretive Data Fasting glucose >/= 126 mg/dl is diagnostic for diabetes. Fasting is defined as no caloric intake for at least 8 hours. Fasting glucose between 100 mg/dl to 125 mg/dl is diagnostic of prediabetes. In a patient with classic symptoms of hyperglycemia or hyperglycemic crisis, a random glucose >/= 200 mg/dl is diagnostic for diabetes. In the absence of unequivocal hyperglycemia, results should be confirmed by repeat testing. The classification and Diagnosis of Diabetes Diabetes Care 2021; 46: S19-S40. Current interpretive data was last revised 2022. Calcium 10.3 8.5 - 10.3 mg/dL [facility] Bilirubin, total 0.3 0.1 - 1.2 mg/dL [facility] Protein, pl 7.0 6.5 - 8.5 g/dL [facility] Albumin 3.7 3.5 - 5.0 g/dL [facility] Alk phos 115 40 - 130 Units/L [facility] ALT 25 7 - 45 Units/L [facility] AST 30 10 - 45 Units/L [facility] Blood 03/03/2025 11:4 2 AM CDT 03/03/2025 8:13 PM CDT Lynne Hutchison MD LAB BLOOD ORDERABLE S Final Result [facility] [address] Department [place] [address] * (ABNORMAL) POCT hemoglobin A1c (03/03/2025 11:02 AM CDT) Hemoglobin A1C, POC 6.6(A) 4.0 - 5.6 % Blood 03/03/2025 11:0 2 AM CDT Lynne Hutchison MD POINT OF CARE TEST ORDERABLES Final Result * POCT glucose (03/03/2025 10:59 AM CDT) Glucose Blood, POC 247 Normal Fasting 70 - 100, Random <200 mg/dL Blood 03/03/2025 10:5 9 AM CDT Lynne Hutchison MD POINT OF CARE TEST ORDERABLES Final Result * (ABNORMAL) DIABETES EYE EXAM (01/14/2025) Historical Provider HEALTH MAINTENANCE Final Result * XR Calcaneus Right 2 or More Views (12/25/2024 11:02 AM CDT) Anatomical Region Laterality Modality Lower Extremities, Foot Right Computed Radiography 12/25/2024 11:0 5 AM CDT Impressions 12/25/2024 11:05 AM CDT No significant abnormality. Electronically signed by: Ginna Price M.D. Narrative 12/25/2024 11:05 AM CDT EXAMINATION: XR CALCANEUS RIGHT 2 OR MORE VIEWS HISTORY: The patient is a 69-year-old female who presents with pain in the right foot. TECHNIQUE: 2 views. FINDINGS: No fracture or dislocation seen. The right os calcis is normal in appearance other than for mild osteopenia. The talocalcaneal joint is normal. Procedure Note Ginna Price MD - 12/25/2024 EXAMINATION: XR CALCANEUS RIGHT 2 OR MORE VIEWS HISTORY: The patient is a 69-year-old female who presents with pain in the right foot. TECHNIQUE: 2 views. FINDINGS: No fracture or dislocation seen. The right os calcis is normal in appearance other than for mild osteopenia. The talocalcaneal joint is normal. IMPRESSION: No significant abnormality. Electronically signed by: Ginna Price M.D. Fatuma Stone LICENSE AND PERMIT SPECIALIST IMG XR PROCEDURES Final Res ult * Hepatitis panel, acute (07/17/2022 6:03 AM CAUSTIC PURIFICATION OPERATOR) Hep A IgM Nonreactive [facility] Comment: Interpretive Data: If Hep A IgM Ab is reported as Equivocal, a new sample should be drawn in two weeks for testing. Current interpretive data was last revised on 19. Hep B core IgM Nonreactive Nonreactive [facility] Comment: Interpretive Data If HepB Core IgM Ab is reported as Equivocal, a new sample should be drawn in two weeks for testing. Current interpretive data was last revised on 19. Hep C Ab Nonreactive Nonreactive [facility] Comment: Interpretive Data Nonreactive: Antibodies to HCV not detected. Does NOT exclude the possibility of recent exposure to HCV. Equivocal: Equivocal for HCV antibodies. Supplemental molecular testing will be automatically performed to determine infection status in accordance with current CDC screening recommendations. Reactive: Positive for HCV antibodies. This may represent current or past HCV infection. Supplemental molecular testing will be automatically performed to determine current infection status in accordance with current CDC screening recommendations. Interpretive data was last revised on 2019. HepBsAg Nonreactive Nonreactive [facility] Blood 07/17/2022 6:03 AM CAUSTIC PURIFICATION OPERATOR 07/17/2022 6:37 AM CAUSTIC PURIFICATION OPERATOR Brian Peng MD [facility] Final Result [facility] [address] Department [place] [address] * HM COLONOSCOPY (09/07/2021) Historical Provider HEALTH MAINTENANCE Final Result from Last 3 Months or Most Recently Relevant to Health Maintenance Additional Health Concerns Infection Onset Date Last Indicated CRE Comment:Contact Precautions (gown and gloves) JES De La Cruz 01/04/23 07/08/2022 07/13/2022 Insurance [employer] MEDICARE [facility] MEDICARE [facility] MEDICARE [facility] MEDICARE Address: [address] [address] [place] [address] IDPA Advance Directives For more information, please contact: [phone] Documents on File Type Date Recorded Patient Leasing Consultant Expl anation ADVANCE DIRECTIVE 08/31/2022 10:35 PM DNR * LIMITED - No CPR (Latest Code Status on File) Date Activated Date Inactivated Comments 08/23/2024 4:34 PM 08/27/2024 10:34 PM * Full Code Date Activated Date Inactivated Comments 08/23/2024 2:57 PM 08/23/2024 4:34 PM * Full Code Date Activated Date Inactivated Comments 05/30/2024 11:57 PM 06/09/2024 10:23 PM * Full Code Date Activated Date Inactivated Comments 07/18/2023 1:34 PM 07/19/2023 7:38 PM * Full Code Date Activated Date Inactivated Comments 06/12/2023 12:54 PM 06/14/2023 1:42 PM 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 Relationship Specialty Start Date End Date Burton Akhtar MD [address] [facility] [address] [place] [address] PCP - General Family Medicine 01/28/25 José Verduzco DPM [id number] [place] [address] Consulting Physician Foot and Ankle Surg 07/26/22 Anup Mayo MD [address] [facility] [address] [place] [address] Endocrinology Diabetes & Metabolism 07/26/22 Tha Arzate MD [address] [facility] [address] [place] [address] Consulting Physician Cardiovascular Disease 07/26/22 Salinas Hawkins MD [address] [facility] [address] [place] [address] Surgeon General Surgery 09/09/22 Lula Lafleur, RN [address] [place] [address] [address] [place] [address] Comfort Filler 07/19/24 Hu Bruno MD [address] [facility] [address] [place] [address] Consulting Physician Vascular Surgery 08/27/24 Darren Young CNM [address] [place] [address] Nurse Practitioner Psychiatry 01/10/25
--- OUTSIDE RECORDS SUMMARY | 2025-03-13 10:49 | XMS_ITS | Referral Summary ---
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 [address] [place] [id number] 03/09/2025 Results Follow-Up [facility] Primary Care at [address] [phone] Burton Akhtar MD Thyroid Function [place], Hemoglobin A1c, Lipid panel, Additional followed-up results: 4 03/07/2025 12:21 PM CDT - 03/07/2025 11:59 PM CDT Hospital Encounter [address] [address] Type 2 diabetes mellitus with diabetic polyneuropathy, with long-term current use of insulin (HCC) Discharge Disposition: Discharge to home or self care 03/07/2025 12:30 PM CDT Lab [facility] Outpatient Lab at [address] [phone] 03/05/2025 Telephone [facility] [address] [phone] Lynne Astorga MD 03/05/2025 10:00 AM CDT Orders Only [facility] [address] [place] [phone] 03/03/2025 11:42 AM CDT - 03/03/2025 11:59 PM CDT Hospital Encounter [address] [address] Type 2 diabetes mellitus with diabetic polyneuropathy, with long-term current use of insulin (HCC); Mixed diabetic hyperlipidemia associated with type 2 diabetes mellitus (HCC); Hypertension associated with type 2 diabetes mellitus (HCC) Discharge Disposition: Discharge to home or self care 03/03/2025 11:42 AM CDT - 03/03/2025 11:59 PM CDT Hospital Encounter [address] [address] Type 2 diabetes mellitus with diabetic polyneuropathy, with long-term current use of insulin (HCC); Stage 3a chronic kidney disease (HCC); Hypertension associated with diabetes (HCC) Discharge Disposition: Discharge to home or self care 03/03/2025 Telephone [facility] [address] [phone] Lynne Astorga MD 03/03/2025 11:30 AM CDT Lab [facility] Outpatient Lab at [address] [phone] 03/03/2025 11:30 AM CDT Office Visit [facility] Diabetes and Endocrinology [address] [place] [phone] Lynne Astorga MD Type 2 diabetes mellitus with diabetic polyneuropathy, with long-term current use of insulin ([facility]) (Primary Dx); Stage 3a chronic kidney disease (HCC); Hyperlipidemia associated with type 2 diabetes mellitus ([facility]); Hypertension associated with diabetes ([facility]); Class 2 severe obesity due to excess calories with serious comorbidity and body mass index (BMI) of 37.0 to 37.9 in adult ([facility]); S/P BKA (below knee amputation), left ([facility]) 02/26/2025 10:00 AM CDT Orders Only [facility] [address] [place] [phone] 02/24/2025 Telephone [facility] Diabetes Endocrine Care at [address] [phone] Rola Mae NP 02/17/2025 Telephone [facility] Endocrine Care at [address] [phone] Rola Mae NP 02/12/2025 10:00 AM CDT Orders Only [facility] [address] [place] [phone] 02/05/2025 10:00 AM CDT Orders Only [facility] [address] [place] [phone] 01/22/2025 Telephone [facility] Primary Care at [address] [phone] Burton Akhtar MD Medical Question/Miscellaneous 01/15/2025 10:00 AM CDT Orders Only [facility] [address] [place] [phone] 01/10/2025 9:15 AM CDT Office Visit [facility] Primary Care at [address] [phone] Burton Ahktar MD Type 2 diabetes mellitus with diabetic polyneuropathy, with long-term current use of insulin ([facility]) (Primary Dx); Hypertension associated with type 2 diabetes mellitus (HCC); Mixed diabetic hyperlipidemia associated with type 2 diabetes mellitus ([facility]); Tobacco use disorder; Drug-induced constipation; Bipolar 1 disorder, depressed ([facility]); Mixed action and resting tremor; Left hand pain; Dependence on wheelchair; PAD (peripheral artery disease); History of colon polyps 01/08/2025 10:00 AM CDT Orders Only [facility] [address] [place] [phone] 01/01/2025 10:00 AM CDT Orders Only [facility] [address] [place] [address] 12/26/2024 Telephone [facility] Primary Care at [address] [phone] Burton Akhtar MD Additional Services Or Orders; Call Back 12/25/2024 Results Follow-Up General Surgery Fatuma Stone NP XR Calcaneus Right 2 or More Views 12/25/2024 10:45 AM CDT - 12/25/2024 11:59 PM CDT Hospital Encounter [facility] [address] [place] [id number] Pain in right foot; PAD (peripheral artery disease); Type 2 diabetes mellitus with diabetic polyneuropathy, with long-term current use of insulin ([facility]) Discharge Disposition: Discharge to home or self care 12/25/2024 Orders Only General Surgery Fatuma Stone NP Pain in right foot (Primary Dx); PAD (peripheral artery disease); Type 2 diabetes mellitus with diabetic polyneuropathy, with long-term current use of insulin ([facility]) 12/25/2024 10:00 AM CDT Orders Only [facility] [address] [place] [address] 12/18/2024 10:00 AM CDT Orders Only [facility] [address] [place] [phone] from Last 3 Months Allergies Active Allergy Reactions Criticality Noted Date [...] by mouth 3 (three) times a day 024 Active melatonin 5 mg tabletIndications :Type 2 diabetes mellitus with diabetic polyneuropathy, with long-term current use of insulin (HCC) Take 1 tablet (5 mg total) by mouth nightly 024 Active tamsulosin (FLOMAX) 0.4 mg extended release capsuleIndication s:Urinary retention Take 1 capsule (0.4 mg total) by mouth nightly 30 capsule 024 Active Additional Information Patient not taking.Reported on [...] with long-term current use of insulin ([facility]),Type 2 diabetes mellitus with microalbuminuria, with long-term current use of insulin ([facility]),CKD stage 2 due to type 2 diabetes mellitus ([facility]) {VIAL] TAKE ONE TABLET (10 MG TOTAL) [...] weekly) Assessment & Plan (08/06/2024 8:56 PM PRODUCT MARKETING EXECUTIVE): - ADA/heart healthy/renal diet Multilevel thoracic spondylosis [...] t.i.d. - she is no longer on [place] 5-325 Q6hrs - reviewed PDMP, last refilled in 05/2024 - reports she used to get injections from Pain management in the past but never wants to get injections in future, reports hx of developing abscesses - during past hospital stay, diagnosed with spinal stensosi, was discharged with narcotic pain medications - Consider pain management referral Assessment & Plan (08/06/2024 9:04 PM PRODUCT MARKETING EXECUTIVE): - Chronic; on conservative tx; continue home PT - Continues on [place] 5/325 mg- 1 tab 4 times daily p.r.n., baclofen 10 mg t.i.d. p.r.n., gabapentin 600 mg t.i.d. - Consider pain management referral Spinal stenosis of lumbar re gion with neurogenic claudication 06/12/2024 Overview (10/28/2024): Chronic back pain Assessment & Plan (07/14/2024 9:00 PM PRODUCT MARKETING EXECUTIVE): Pain has been adequately controlled, continue scheduled baclofen, scheduled Tylenol, scheduled [place]. Patient continues to require significant assistance for bed mobility and transfers, unfortunately has not made much progress with therapy. Patient was felt stable for discharge on 07/15/2024 to return home with family who has demonstrated the ability to care for patient. We will arrange home health PT, OT, RN. Assessment & Plan (07/08/2024 1:25 PM PRODUCT MARKETING EXECUTIVE): Pain is controlled, continue scheduled norco, baclofen, tylenol. Pt has not made much progress, therapy working on family transfers with zaynab. Anticipate that she will need 24 hour at discharge. Assessment & Plan (07/03/2024 12:49 PM PRODUCT MARKETING EXECUTIVE): Pain is better controlled with current regimen of scheduled [place] 5/325 mg 1 tab q.i.d., baclofen 10 mg t.i.d., Tylenol t.i.d. therapies are in place, monitor patient's progress. Has not made much progress with slide board transfers, but has been sitting up in chair for a short period of time in the afternoons. Assessment & Plan (06/25/2024 1:57 PM PRODUCT MARKETING EXECUTIVE): Patient continues to struggle with pain with [...] in relationship to therapy. We will scheduled [place] 1 tab q.i.d., continue baclofen 10 mg t.i.d., scheduled Tylenol t.i.d. Assessment & Plan (06/22/2024 11:02 AM CDT): She is currently in appeal. Later, I was advised that her appeal had been recognized and she will not be discharged soon. She does report that her pain control is improved. I recommend continuing gabapentin as scripted and [place] as scripted t.i.d. p.r.n. pain. Also continue [...] has been having difficulty receiving her p.r.n. [place] due to nursing staff. Agreeable to scheduled [place] t.i.d., schedule baclofen increase gabapentin dosing. We will need to monitor closely for over-sedation, inability to participate in therapy due to lethargy Assessment & Plan (06/14/2024 11:05 AM CDT): Pain remains uncontrolled, we will scheduled [place] 5/325 mg, 1 tablet b.i.d., and t.i.d. p.r.n.. We will also increase gabapentin to 300 mg t.i.d.(creatinine clearance 84). Continue p.r.n. baclofen. Assessment & Plan (06/12/2024 8:31 PM CDT): We will continue conservative management. Therapies are in place, monitor patient's progress. Continue pain control with baclofen t.i.d. p.r.n., gabapentin 200 mg b.i.d., [place] 5/325 1 tablet q.6 hours p.r.n.. We [...] - reports she has had Colonoscopy in [place] about 2 years ago, [facility] [...] it, states she was allergic to it Peatix continuous glucose monitoring device 12/19 Assessment & [...] 04/18/2024 Assessment & Plan (08/06/2024 8:42 PM PRODUCT MARKETING EXECUTIVE): - chronic; stable - Continues on Xarelto 2.5 mg b.i.d., Plavix 75 mg daily, ASA 81 mg daily - Follow-up with cardiology Assessment & Plan (04/26/2024 3:39 PM CDT): Chronic. She still has a chronic lower extremity wound that is in the process of healing. She sees [facility] for vascular side of things. Cholesterol is controlled. Continue low-dose Xarelto, aspirin, Clopidogrel as well as cholesterol medications for risk factor modification Assessment & Plan (01/24/2024 7:18 PM CDT): Patient reports she has a new recent wound on the left leg. Working with the wound care center. Were closely with specialists. Continue cholesterol medication. Assessment & Plan (09/18/2023 5:50 PM PRODUCT MARKETING EXECUTIVE): Patient has significant atherosclerosis of the lower [...] 08/24/2024 Assessment & Plan (08/06/2024 8:52 PM PRODUCT MARKETING EXECUTIVE): - Chronic; slightly decreased from prior - [...] benefits Assessment & Plan (09/18/2023 5:49 PM PRODUCT MARKETING EXECUTIVE): Patient has chronic diabetes with stage 2 chronic kidney disease. Continue care per endocrinology. Monitor renal function Assessment & Plan (06/14/2023 6:45 PM CDT): Diabetes was uncontrolled on last check. Recent blood sugars out arrange. Patient was encouraged to work closely with her immigration law specialist. She is an appointment coming up in 2 weeks. Discussed blood sugar goals. Encouraged her to continue working on diabetic diet. Encouraged her to work on exercise as able Bipolar 1 disorder, depressed 12/12/2022 Overview (02/16/2025): Follows with Psychiatry - Psychiatrist is DARR[facility] [facility] [employer] [facility] in [place] Assessment & Plan (01/10/2025 12:37 PM CDT): [...] provider Assessment & Plan (08/06/2024 8:43 PM PRODUCT MARKETING EXECUTIVE): - Chronic, stable on current regimen - Continue duloxetine 60 mg daily, Lamictal 100 mg b.i.d., Abilify 10 mg daily Assessment & Plan (07/14/2024 8:58 PM PRODUCT MARKETING EXECUTIVE): Mood has significantly improved. Patient has been participating but has not yet made much progress in therapy. Continue duloxetine, Lamictal, Abilify Assessment & Plan (07/03/2024 12:47 PM PRODUCT MARKETING EXECUTIVE): Pt reported some hallucinations yesterday - has a history of these with psych meds. Mental status now back to baseline. Continue duloxetine, Lamictal, Abilify Assessment & Plan (07/01/2024 1:34 PM PRODUCT MARKETING EXECUTIVE): Mood stable, pt participating. Continue Abilify, lamictal, duloxetine. Assessment & Plan (06/10/2024 3:09 PM CDT): Continue duloxetine 60 mg daily, continue Lamictal 100 mg p.o. b.i.d. we will also continue Abilify 10 mg daily. Since this is a chronic prescription ([facility] indicates that she has been prescribed this [...] parkinsonism Assessment & Plan (09/18/2023 5:49 PM PRODUCT MARKETING EXECUTIVE): Chronic. Stable. Follows with Psychiatry. Denies any [...] her BKA site. 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 She has a chronic wound on the upper morrison for which she is working with the wound care center. Continue care per central melt specialist Assessment & Plan (09/10/2022 10:21 AM PRODUCT MARKETING EXECUTIVE): Patient underwent left BKA on 09/05, postop [...] control per surgery - weaned off Dilaudid ARCHITECTURAL MODELER pump on 09/08 and transitioned to oral pain control JOSE L (obstructive sleep apnea) 09/04/2022 Overview (10/28/2024): Not on CPAP, CPAP intolerant Assessment & Plan (08/06/2024 8:39 PM PRODUCT MARKETING EXECUTIVE): - chronic; uncontrolled, CPAP intolerant Assessment & [...] appliance Assessment & Plan (09/18/2023 5:51 PM PRODUCT MARKETING EXECUTIVE): Chronic. Previously intolerant to CPAP. Encouraged weight loss Assessment & Plan (09/10/2022 10:07 AM PRODUCT MARKETING EXECUTIVE): Using home CPAP. Constipation 09/03/2022 Assessment & [...] management Assessment & Plan (08/06/2024 8:57 PM PRODUCT MARKETING EXECUTIVE): - Associated with immobility and chronic foods - Lactulose, MiraLax p.r.n. - Notify office if further concerns Assessment & Plan (07/14/2024 8:57 PM PRODUCT MARKETING EXECUTIVE): Patient continues to struggle with constipation likely due to immobility and narcotic use. No longer is uncomfortable and is having small bowel movements. Continue current aggressive bowel regimen including bisacodyl 10 mg daily, lactulose 10 g b.i.d., MiraLax b.i.d., p.r.n. milk of magnesia Assessment & Plan (07/03/2024 12:44 PM PRODUCT MARKETING EXECUTIVE): Abd xray demonstrates large fecal burden in [...] p.m.. Assessment & Plan (07/01/2024 1:49 PM PRODUCT MARKETING EXECUTIVE): Pt continues to report that she is constipated despite additional medications - miralax x 7, mag citrate. Pt denies abd pain, no vomiting. Pt sits up only a hour or so per day, non ambulatory. Will check abd xray, will add lactulose 10g bid. Continue bisacodyl 10mg daily, pericolace 2 cap BID, miralax bid. Assessment & Plan (06/27/2024 2:57 PM PRODUCT MARKETING EXECUTIVE): Bonnie and her mother report no substantial [...] continue use a wheelchair she has handicap uyen Assessment & Plan (10/28/2024 2:12 AM CDT): Patient is still wheelchair dependent. She is unable to use a prosthesis on her left lower extremity due to chronic wound. She will continue use a wheelchair Completed paperwork for handicap uyen on this visit Assessment & Plan (09/18/2023 5:50 PM PRODUCT MARKETING EXECUTIVE): Patient is still wheelchair dependent. She is [...] Cardiology Assessment & Plan (08/06/2024 8:35 PM PRODUCT MARKETING EXECUTIVE): - chronic, stable at goal of < 140/90 - continue amlodipine 10 mg daily, losartan 100 mg daily, metoprolol 50 mg daily, hydralazine 50 mg TID - Monitor BP 1-2x daily, report readings > 140/90 or < 100/60 Assessment & Plan (07/14/2024 8:54 PM PRODUCT MARKETING EXECUTIVE): Blood pressure controlled, continue losartan, Norvasc, metoprolol. Chlorthalidone has been discontinued Assessment & Plan (07/08/2024 1:17 PM PRODUCT MARKETING EXECUTIVE): BP stable, continue metoprolol, norvasc, losartan. Chlorthalidone on hold Assessment & Plan (07/03/2024 12:41 PM PRODUCT MARKETING EXECUTIVE): Blood pressure well controlled, continue losartan 100 mg daily, Norvasc 10 mg daily, metoprolol 50 mg b.i.d. Chlorthalidone on hold Assessment & Plan (06/27/2024 2:58 PM PRODUCT MARKETING EXECUTIVE): Continue current scripting of hydralazine, losartan, metoprolol [...] prescribed. Assessment & Plan (09/18/2023 5:50 PM PRODUCT MARKETING EXECUTIVE): Chronic. HTN controlled. Cont prescription Rx. Low sodium diet (DASH or Mediterranean), exercise, wt loss (if over weight) discussed Assessment & Plan (06/28/2023 12:13 PM PRODUCT MARKETING EXECUTIVE): This is a chronic condition which is at goal of less than 140/90 Personally reviewed labs. Continue chlorthalidone, amlodipine, losartan Encouraged to monitor weight and B/P at home Encouraged to take medications as prescribed. Assessment & Plan (06/14/2023 6:45 PM CDT): Chronic. Controlled. Continue current prescription medications Assessment & Plan (09/10/2022 10:13 AM PRODUCT MARKETING EXECUTIVE): Patient with a history of elevated blood [...] 08/27/2024 Assessment & Plan (08/06/2024 7:23 AM PRODUCT MARKETING EXECUTIVE): - chronic, poorly controlled but improved from prior, most recent HgA1c 10.2 (04/18/24) - continue Soliqua 100/33- 45 units subQ bid, lispro 20 units tid before meals, farxiga 10 mg daily - eGFR 39 - recommend yearly dilated eye exams - recommend routine diabetic foot care per podiatry Assessment & Plan (07/14/2024 8:55 PM PRODUCT MARKETING EXECUTIVE): A1c 10.2, Accu-Cheks generally controlled, ranging from 123 to 246, continue Lantus 45 units b.i.d., lispro 20 units t.i.d. a.c., Victoza, Farxiga. We will discontinue sliding scale insulin upon discharge Assessment & Plan (07/08/2024 1:22 PM PRODUCT MARKETING EXECUTIVE): A1c 10.2, BS 107-247. Continue lantus 45 units BID, lispro 20 units TIDAC, SSI, vitcoza, farxiga Assessment & Plan (06/25/2024 1:55 PM PRODUCT MARKETING EXECUTIVE): A1c 10.2, BS 110-211, we will continue [...] units t.i.d. a.c. with sliding scale insulin, Shaye Victoza. Continue to monitor Assessment & Plan (06/10/2024 2:51 PM CDT): Continue gabapentin 200 mg p.o. b.i.d.. Continue [place] as scripted Assessment & Plan (04/26/2024 3:37 [...] assistance. Assessment & Plan (09/18/2023 5:49 PM PRODUCT MARKETING EXECUTIVE): Chronic. Poorly controlled. Working with Endocrinology. Encouraged patient to really work on diabetic diet. Encouraged to work on exercise as able. We offered a referral for breastfeeding educator and dietitian but patient deferred Assessment & Plan (06/28/2023 12:13 PM PRODUCT MARKETING EXECUTIVE): This is a chronic condition which is out of control, worsening not at goal of less than 7%. Personally reviewed most recent A1c - Lab Results Component Value Date HGBA1C 12.1 06/28/2023 Personally reviewed POC blood sugar- not at goal 80-180 Lab Results Component Value Date POCGLU 442 06/28/2023 Medication- continue xultophy 50 units daily. (Received from Patient assistance from [employer] program) continue Humalog U200 60 units 3 [...] units daily. (Received from Patient assistance from [employer] program) continue Humalog U200 36 units 3 [...] a surplus of the Xultophy from the [employer] patient assistance. Will start Humalog U 200 [...] atorvastatin. Assessment & Plan (09/10/2022 10:13 AM PRODUCT MARKETING EXECUTIVE): Home regimen includes Lantus 62 units every [...] forms provided and filled out for the [employer] program- she is receiving Tresiba U200 already. [...] No history of macrovascular disease - CVA, [place]. Assessment & Plan (11/02/2021 4:44 PM CDT): [...] 1000mg bid- patient is receiving Tresiba from [employer] assistance program- will change to Xultophy to [...] No history of macrovascular disease - CVA, SC. Assessment & Plan (06/25/2021 4:09 PM CDT): [...] afford it. Applied for patient assistance for Tresiba and was accepted. Tresiba provided to patient [...] No history of macrovascular disease - CVA, SC. Assessment & Plan (03/01/2021 6:06 PM CDT): [...] No history of macrovascular disease - CVA, SC. Assessment & Plan (12/07/2020 12:48 PM CDT): [...] No history of macrovascular disease - CVA, SC. Referred for nutritional counseling. Assessment & Plan (10/23/2020 12:27 PM PRODUCT MARKETING EXECUTIVE): This is a chronic condition which is [...] No history of macrovascular disease - CVA, SC. Referred for nutritional counseling. Encouraged to take [...] 04/18/2024 Assessment & Plan (08/06/2024 8:38 PM PRODUCT MARKETING EXECUTIVE): - chronic, LDL at goal of < [...] prescribed. Assessment & Plan (09/18/2023 5:51 PM PRODUCT MARKETING EXECUTIVE): Chronic. Tolerates rx. Atorvastatin now 80 mg daily. continue Assessment & Plan (06/28/2023 12:14 PM PRODUCT MARKETING EXECUTIVE): This is a chronic condition which is [...] 10/28/2024 Assessment & Plan (06/27/2024 2:58 PM PRODUCT MARKETING EXECUTIVE): The midnight nurse notes urine with a strange odor. Appearance cloudy. I have asked the nurses to obtain a urine specimen and send for UA with reflex culture. The patient and her mother deny any symptoms of acute cystitis Urinary retention 06/25/2024 09/12/2024 Assessment & Plan (08/06/2024 8:45 PM PRODUCT MARKETING EXECUTIVE): - chronic, indwelling catheter; continue tamsulosin 0.4 mg nightly - Follow-up with urology Assessment & Plan (07/15/2024 2:08 PM PRODUCT MARKETING EXECUTIVE): Now resolved, continue Flomax 0.4 mg nightly Assessment & Plan (07/01/2024 1:52 PM PRODUCT MARKETING EXECUTIVE): Pt has been voiding more often, but still needing occasional straight cath. Will increase flomax 0.8mg nightly Assessment & Plan (06/25/2024 1:58 PM PRODUCT MARKETING EXECUTIVE): Patient reports that [place] catheter is leaking, we will remove catheter, attempt voiding trial. Straight cath p.r.n. Chronic renal failure, stage 3b 06/14/2024 10/28/2024 Assessment & Plan (07/14/2024 8:58 PM PRODUCT MARKETING EXECUTIVE): Renal function had elevated but has since been stable after discontinuing chlorthalidone. GFR of 39-47. Continue to monitor Assessment & Plan (07/01/2024 1:31 PM PRODUCT MARKETING EXECUTIVE): Renal function stable, Bun/Cr 57/1.40, GFR 41. Chlorthalidone will remain on hold. F/u labs 07/03 Assessment & Plan (06/25/2024 1:56 PM PRODUCT MARKETING EXECUTIVE): Renal function slightly worsened, BUN/creatinine 51/1.52 with [...] physical and occupational therapy. I have ordered [place] 5 over 3-5 every 6 hours p.r.n. [...] units daily. (Received from Patient assistance from [employer]). change Humalog U200 to Fiasp 60 units 3 times a day prior to meals. Monitor blood sugar continuously with cgm. Monofilament foot exam completed. Loss of protective senses Treated with Gabapentin Personally reviewed CMP eGFR- 55 Kidney function- abnormal Urine microalbumin/creatinine ratio - abnormal. Goal is <30 Continue amlodipine, chlorthalidone, losartan, metoprolol Assessment & Plan (09/18/2023 5:55 PM PRODUCT MARKETING EXECUTIVE): Chronic. Very poorly controlled on last A1c. Continue work with endocrinology. Really needs to work on diabetic diet and lifestyle. Patient declined referral for breastfeeding educator today Peripheral angiopathy due to DM 07/18/2023 10/28/2024 Assessment & Plan (01/24/2024 7:10 PM CDT): Continue atorvastatin and ezetimibe. Continue working on trying to keep cholesterol controlled. Continue risk factor modification with Clopidogrel as well as low- dose Xarelto. Has had prior vascular interventions. Prior left leg BKA due to diabetic complication Assessment & Plan (09/18/2023 5:52 PM PRODUCT MARKETING EXECUTIVE): Chronic. Continue risk factor modification. Works with [...] 10/28/2024 Assessment & Plan (07/14/2024 8:53 PM PRODUCT MARKETING EXECUTIVE): Currently at baseline, continue aspirin, atorvastatin, Zetia, blood pressure control. Assessment & Plan (06/10/2024 2:49 PM CDT): Wound care to follow. Continue aspirin and atorvastatin Assessment & Plan (01/24/2024 7:12 PM CDT): Chronic. Continue risk factor modification with low-dose Xarelto as well as high-intensity atorvastatin Assessment & Plan (09/18/2023 5:50 PM PRODUCT MARKETING EXECUTIVE): Patient has a significant amount of peripheral arterial disease. She has had prior interventions on both lower extremities with Interventional Cardiology. Continue risk factor modification Assessment & Plan (06/14/2023 6:43 PM CDT): Bilateral lower extremities. Prior intervention on the left lower extremity. Recent right lower extremity intervention failed. [facility]es [facility]. Continue low-dose Xarelto and cholesterol medications. LDL goal less than 70 Obesity 12/12/2022 08/06/2024 Assessment & Plan (06/10/2024 2:51 PM CDT): Dietary to follow Assessment & Plan (04/26/2024 3:42 PM CDT): Obesity needs improvement. Unable to get accurate weight today due to patient's wheelchair status. Encouraged healthy diet, exercise and weight loss. Assessment & Plan (09/18/2023 5:51 PM PRODUCT MARKETING EXECUTIVE): Chronic. Suboptimally controlled. Encouraged healthy diet and lifestyle. Encouraged weight loss Assessment & Plan (06/14/2023 6:46 PM CDT): Chronic. Suboptimally controlled. Encouraged healthy diet, exercise as able as well as weight loss Asymptomatic COVID-19 virus infection 09/09/2022 12/12/2022 Assessment & Plan (09/10/2022 10:09 AM PRODUCT MARKETING EXECUTIVE): Patient is asymptomatic. No treatment necessary at this time. Isolation precautions put in place. 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 Plan: - continue aspirin 81 mg daily and Xarelto 2.5 mg b.i.d. Gangrene 06/28/2022 06/14/2023 Overview (07/12/2022): Added automatically from request for surgery [id number] Dyslipidemia 07/06/2019 09/12/2024 Assessment & Plan (06/25/2021 [...] intervertebral disc 08/31/2012 10/28/2024 Osteoarthritis 08/21/2012 09/12/2024 Immunizations Immunization Administration Dates Next Due Influenza, Quadrivalent, Spl it, Preservative Free, Intramuscular 07/12/2022(Deferred: Patient Refused) Influenza, Trivalent, High D ose, Split, Preservative Free, Intramuscular 06/09/2024 Influenza, Trivalent, IM (MDV) 06/17/2014 Influenza, Trivalent, Preser vative Free, Intramuscular 06/17/2014 Influenza, Unspecified 04/26/2024(Deferred: Angelita ent Refused) Pfizer SARS-CoV-2 Monovalent Vaccination (12+ Yrs) PURPLE 10/20/2020 Tdap 06/14/2023 Social History Tobacco Use Types Packs/Day Years [...] materials from doctor or pharmacy Never 05/02/2023 [facility] Utilities Answer Date Recorded In the past 12 months has th e [employer], gas, oil, or water [place] threatened to shut off services in your home? No 08/23/2024 Social Connection and Isolation Panel [NHANES] A nswer Date Recorded In a typical week, how many times do you talk on the phone with family, friends, or neighbors? Twice a week 08/23/2024 How often do you get together with friends or re latives? Once a week 08/23/2024 How often do you attend muslim or jehovah's witness serv ices? Never 08/23/2024 Do you belong to any clubs o r organizations such as muslim groups, unions, fraternal or athletic groups, or [...] place to sleep or slept in a nursing home (including now)? No 07/01/2022 PHQ-9 Answer Date [...] any time in the past 12 m [facility], were you homeless or living in a nursing home (including now)? No 08/23/2024 Personal Safety Answer [...] on file Legal Sex Female 10:33 AM PRODUCT MARKETING EXECUTIVE Gender Identity Female 11/26/2022 1:44 AM CDT Sexual Orientation Straight 11/26/2022 1: 44 AM CDT Last Filed Vital Signs Vital Sign Reading Time Taken Comments Blood Pressure 138/72 03/03/2025 10:57 AM CDT Pulse 76 03/03/2025 10:57 AM CDT Temperature 36.8 C (98.2 F) 01/10/2025 9:27 AM CDT Respiratory Rate 17 03/03/2025 10:5 7 AM CDT Oxygen Saturation 96% 01/10/2025 9:27 AM CDT Inhaled Oxygen Concentration - - Weight 133.4 kg (294 lb 1.5 oz) 08/23/2024 2:59 PM PRODUCT MARKETING EXECUTIVE Height 188 cm (6' 2) 03/03/2025 10:57 AM CDT Body Mass Index 37.76 08/23/2024 2:59 PM PRODUCT MARKETING EXECUTIVE Plan of Treatment Not on file Goals Goal Patient Goal Type Associated Problems [...] or provider. Medical Devices Implanted Type Area Vocational Nurse Lvn Device Identifier Shelf Expiration Date Model / Serial / Lot Med[employer]onic [employer] Everflex Entrust 7mm 150mm 120cm Self Expand Delivery System Low - [id number] - [id number] Implanted:Qty: 1 on 06/29/2022 by Tha Arzate MD at [facility] Stent Left: Superficial Femoral Artery [employer] Inc 10/09/2023 [id number] 150-120 / 0 / [id number] Med[employer] Everflex Entrust 7mm 150mm 120cm Self Expand Delivery System Low - [id number] - [id number] Implanted:Qty: 1 on 07/06/2022 by Tha Arzate MD at [facility] Stent Left: Superficial Femoral Artery [employer]onic Inc 03/22/2025 [id number] 150-120 / [id number] / [id number] Med[employer]onic Inc Stent Peripheral Biliary Over The Wire Protege Everflex [id number] Nitinol [id number] - [id number] Implanted:Qty: 1 on 07/18/2023 by Tha Arzate MD at [facility] [employer] 03/12/2024 [id number] 200-120 / / [id number] Procedures Procedure Name Priority Date/Time Associated Diagnosis [...] HEPATITIS PANEL, ACUTE Routine 07/17/2022 6:03 AM PRODUCT MARKETING EXECUTIVE COLONOSCOPY Routine 09/07/2021 from Last 3 Months [...] URINE ORDERABLE S Final Result [facility] [address] Department [place] [address] * eGFR (03/03/2025 11:42 AM [...] glomerular filtration rate is determined by the 202 CKD-EPI equation recommended by the National Kidney [...] AM CDT 03/03/2025 8:14 PM CDT us Lynne Hutchison MD LAB BLOOD ORDERABLE S Final Result MIKE [address] Department [place] [address] * eGFR (03/03/2025 11:42 AM CDT) eGFR [...] MD LAB BLOOD ORDERABLES Fi nal Result [facility] [address] [place] [address] * Differential, auto (03/03/2025 11:42 AM CDT) Neutrophil abs 5.61 1.50 - 6.50 K/cumm Imm gran abs 0.01 0.00 - 0.10 K/cumm [facility] Lymphocyte abs 1.28 0.80 - 3.30 K/cumm [facility] Monocyte abs 0.57 0.20 - 0.80 K/cumm [facility] Eosinophil abs 0.23 0.00 - 0.50 K/cumm [facility] Basophil abs 0.05 0.00 - 0.10 K/cumm [facility] Neutrophil pct 72.4 % [facility] Comment: Interpretive Data Percent cell count reference ranges are not reported, since discordance with absolute values may lead to misinterpretation of CBC data. Current Interpretive Data was last revised on 2017. Imm gran pct 0.1 % [facility] Comment: Interpretive Data Percent cell count reference ranges are not reported, since discordance with absolute values may lead to misinterpretation of CBC data. Current Interpretive Data was last revised on 2017. Lymphocyte pct 16.5 % [facility] Comment: Interpretive Data Percent cell count reference ranges are not reported, since discordance with absolute values may lead to misinterpretation of CBC data. Current Interpretive Data was last revised on 2017. Monocyte pct 7.4 % [facility] Comment: Interpretive Data Percent cell count reference ranges are not reported, since discordance with absolute values may lead to misinterpretation of CBC data. Current Interpretive Data was last revised on 2017. Eosinophil pct 3.0 % [facility] Comment: Interpretive Data Percent cell count reference ranges are not reported, since discordance with absolute values may lead to misinterpretation of CBC data. Current Interpretive Data was last revised on 2017. Basophil pct 0.6 % [facility] Comment: Interpretive Data Percent cell count reference ranges are not reported, since discordance with absolute values may lead to misinterpretation of CBC data. Current Interpretive Data was last revised on 2017. Blood 03/03/2025 11:4 2 AM CDT 03/03/2025 8:13 PM CDT Burton Akhtar MD LAB BLOOD ORDERABLES Fi nal Result Performing Organization Address City/[facility] Co de Phone Number [facility]KE [facility] [address] [facility] [place] [address] * Thyroid Function [place] (03/03/2025 11:42 AM CDT) Pathologist [facility] TSH 1.54 0.30 - 4.20 mcIUnit/mL Blood 03/03/2025 11:4 2 AM CDT 03/03/2025 8:13 PM CDT Burton Akhtar MD LAB BLOOD ORDERABLES Fi nal Result Performing Organization Address [facility] de Phone Number [facility]KE [facility] [address] [place] [address] * (ABNORMAL) CBC with auto differential (03/03/2025 11:42 AM CDT) Pathologist [facility] WBC 7.75 3.80 - 9.90 K/cumm Hgb 11.4(L) 11.9 - 15.5 g/dL [facility] Hct 38.6 35.6 - 45.5 % [facility] Plt 135(L) 150 - 400 K/cumm [facility] MPV 11.6 9.1 - 12.3 fL [facility] RBC 4.07 3.90 - 5.20 M/cumm [facility] MCV 94.8 81.3 - 96.4 fL [facility] MCH 28.0 27.1 - 33.3 pg [facility] MCHC 29.5(L) 32.3 - 35.7 g/dL [facility] RDW CV 16.0(H) 11.1 - 14.9 % [facility] CH RDW SD 56.1(H) 35.7 - 48.1 fL [facility] CH NRBC abs 0.00 0.00 - 0.01 K/cumm [facility] CH Blood 03/03/2025 11:4 2 AM CDT 03/03/2025 8:13 PM CDT Burton Akhtar MD LAB BLOOD ORDERABLES nal Result Performing Organization Address [facility] de Phone Number MIKE [address] [facility] [place] [address] * (ABNORMAL) Hemoglobin A1c (03/03/2025 11:42 AM CDT) Hgb A1C 6.7(H) 4.0 - 5.6 % Estimated Average Glucose 146 mg/dL [facility] Comment: The ADA recommends reporting an estimated Average Glucose (eAG) with all Hemoglobin A1c results using the equation derived from a study of 507 normal and diabetic adults. Minority populations were underrepresented and children were not included. (Diabetes Care 31:2896-6265, 2008). The eAG is not equivalent to a fasting glucose. Blood 03/03/2025 11:4 2 AM CDT 03/03/2025 8:13 PM CDT Burton Akhtar MD LAB BLOOD ORDERABLES Fi nal Result Performing Organization Address [facility] de Phone Number LAMINEJERRY [address] [facility] [place] [address] * (ABNORMAL) Lipid panel (03/03/2025 11:42 AM [...] on 2018. Triglycerides 249(H) <=149 mg/dL [facility] Comment: Interpretive Data Ages < or = [...] mg/dL High: >160 mg/dL Calculated using the Jacoby LDL-C estimating equation. This equation was implemented on 2024. Prior to this date LDL-C was estimated using the Friedewald equation. Literature References: 1. Expert Panel on Integrated Guidelines for Cardiovascular Health and Risk Reduction in Children and Adolescents. Pediatrics 2011;128:S213 2. NCEP Expert Panel. Circulation 2004;110:227 3. Jacoby Hall al. NANDA Cardiol. 2019December 19;5(5):540-548. doi: 10.1001/jamacardio.2020.0013 Current Interpretive Data was last revised on 2024. Non-HDL Cholesterol 94 mg/dL [facility] Comment: Interpretive Data Ages < or = [...] revised on 2018. Chol/HDL ratio 3 [facility] Blood 03/03/2025 11:4 2 AM CDT 03/03/2025 8:13 PM CDT Narrative [facility] CH - 03/03/2025 8:37 PM CDT Has the patient been fasting for 8 hours or more?->No Burton Akhtar MD LAB BLOOD ORDERABLES nal Result [facility] [address] Department [place] [address] * (ABNORMAL) Comprehensive metabolic panel (03/03/2025 11:42 AM CDT) Sodium 142 135 - 145 mmol/L Potassium, pl 4.1 3.3 - 4.9 mmol/L [facility] Chloride 105 97 - 110 mmol/L [facility] CO2 24 22 - 32 mmol/L [facility] Anion gap 13 2 - 15 mmol/L [facility] BUN 29(H) 6 - 25 mg/dL [facility] Creatinine 0.81 0.60 - 1.10 mg/dL [facility] Glucose 200(H) 70 - 199 mg/dL [facility] Comment: Interpretive Data Fasting glucose >/= 126 [...] 2 AM CDT 03/03/2025 8:13 PM CDT us Burton Akhtar MD LAB BLOOD ORDERABLES [facility] Result [facility] [address] Department [place] [address] * (ABNORMAL) Comprehensive metabolic panel (03/03/2025 11:42 AM CDT) Sodium 141 135 - 145 mmol/L Potassium, [...] MD LAB BLOOD ORDERABLE S Final Result [facility] [address] Department [place] [address] * (ABNORMAL) POCT hemoglobin A1c (03/03/2025 11:02 [...] * (ABNORMAL) DIABETES EYE EXAM (01/14/2025) Historical [facility] Final Result * XR Calcaneus [...] signed by: Ginna Price M.D. Fatuma Stone CUSTOM SHOE DESIGNER AND MAKER IMG XR PROCEDURES Final Res ult * Hepatitis panel, acute (07/17/2022 6:03 AM PRODUCT MARKETING EXECUTIVE) Hep A IgM Nonreactive Nonreactive [facility] Comment: Interpretive Data: If Hep A IgM Ab is reported as Equivocal, a new sample should be drawn in two weeks for testing. Current interpretive data was last revised on 19. Hep B core IgM Nonreactive Nonreactive [facility] Comment: Interpretive Data If HepB Core IgM Ab is reported as Equivocal, a new sample should be drawn in two weeks for testing. Current interpretive data was last revised on 19. Hep C Ab Nonreactive Nonreactive [facility] Comment: Interpretive Data Nonreactive: Antibodies to HCV [...] last revised on 2019. HepBsAg Nonreactive Nonreactive [facility] Blood 07/17/2022 6:03 AM PRODUCT MARKETING EXECUTIVE 07/17/2022 6:37 AM PRODUCT MARKETING EXECUTIVE Brian Peng MD [facility] Final Result [facility] [address] Department [place] [address] * HM COLONOSCOPY (09/07/2021) Historical Provider HEALTH MAINTENANCE Final Result from Last 3 Months or Most Recently Relevant to Health Maintenance Additional Health Concerns Infection Onset Date Last Indicated CRE Comment:Contact Precautions (gown and gloves) JES De La Cruz 01/04/23 07/08/2022 07/13/2022 Insurance [facility] MEDICARE [facility] MEDICARE GOLD [facility] MEDICARE ADVANTAGE IDPA Advance Directives For more information, please contact: [phone] Documents on File Type Date Recorded 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 ADVANCE DIRECTIVE 08/31/2022 10:35 PM [...] 12:54 PM 06/14/2023 1:42 PM Care Teams Typewriter Assembly And Parts Inspector Relationship Specialty Start Date End Date Burton Akhtar MD [address] [facility] [address] [place] [address] PCP - General Family Medicine 01/28/25 José Verduzco DPM [address] [place] [address] Consulting Physician Foot and Ankle Surg 07/26/22 Anup Mayo MD [address] [place] [address] [address] [place] [address] Endocrinology Diabetes & Metabolism 07/26/22 Tha Arzate MD [address] [place] [address] [address] [place] [address] Consulting Physician Cardiovascular Disease 07/26/22 Salinas Hawkins MD [facility] [facility] [address] [place] [address] Surgeon General Surgery 09/09/22 Lula Lafleur, JES [address] [place] [address] [address] [place] [address] Transmission Systems Operator 07/19/24 Hu Bruno MD [address] [address] Consulting Physician Vascular Surgery 08/27/24 Darren Young CNM [address] [place] [address] Nurse Practitioner Psychiatry 01/10/25
--- OUTSIDE RECORDS SUMMARY | 2025-03-13 10:49 | XMS_ITS | Encounter Summary ---
Author Organization [facility] Address [address] [place] [address] Care Team Providers Care Construction Or Leak Gang Laborer Name Role Phone Joés Verduzco DPM Unavailable Anup Mayo MD Unavailable [phone] Tha Arzate MD Unavailable Salinas Hawkins MD Unavailable [phone] Yvonne Bowers MD Primary Care Provider Lula Lafleur RN Unavailable Montse AsencioW Unavailable [phone] Yasmin Reynolds NP Primary Care Provider [phone] Hu Bruno MD Unavailable [phone] No, Physician Primary Care Provider [phone] Burton Akhtar MD Primary Care Provider Elyse Young CNRaymon Unavailable [phone] Burton Akhtar MD Primary Care Provider Reason for Visit * Auth/Cert (Routine) Specialty Diagnoses / Procedures Referred By Contac t Referred To Contact Diagnoses Personal history of colonic polyps Encounter for screening colonoscopy Personal history of colonic polyps [Z86.010] Encounter for screening colonoscopy [Z12.11] Procedures GA COLONOSCOPY FLX DX W/COLLJ SPEC WHEN PFRMD COLONOSCOPY Referral ID Status Reason Start Date Expiration Date Visits Re quested Visits Authorized [id number] 1 1 Encounter Details Date Type Department Care Team (Late st Contact Info) Description 06/10/2024 Hospital Encounter [facility] [address] [place] [address] Rakesh Friend DO [address] [facility] [facility] [address] [place] [address] Social History Tobacco Use Types Packs/Day Years [...] materials from doctor or pharmacy Never 05/02/2023 [facility] Utilities Answer Date Recorded In the [...] week 08/23/2024 How often do you attend methodist or mu-ism serv ices? Never 08/23/2024 Do you belong to any clubs o r organizations such as methodist groups, unions, fraternal or athletic groups, or [...] place to sleep or slept in a penitentiary (including now)? No 07/01/2022 PHQ-9 Answer Date [...] any time in the past 12 m [facility], were you homeless or living in a penitentiary (including now)? 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 Monthly or less 08/23/2024 4:43 PM Valarie Goodwin, RN Q2: How many drinks containing alcohol do you have on a typical day when you are drinking? 1 or 2 08/23/2024 4:43 PM Valarie Goodwin, RN Q3: How often do you have six or more drinks on one occasion? Never 08/23/2024 4:43 PM Valarie Goodwin, RN documented as of this encounter Plan of [...] documented as of this encounter Visit Diagnoses Diagnosis Personal history of colonic polyps documented in this encounter Admitting Diagnoses Diagnosis Personal history of colonic polyps Encounter for screening colonoscopy documented in this encounter Additional Health Concerns Infection Onset Date Last Indicated Resolved Time CRE Comment:Contact Precautions (gown and gloves) JES De La Cruz 01/04/23 07/08/2022 07/13/2022 MRSA Comment:Wound from L Leg - 01/01/2024 01/01/2024 01/01/2024 06/29/2024 3:[address] documented as of this encounter Care Teams Construction Or Leak Gang Laborer Relationship Specialty Start Date End Date Yvonne Bowers MD [address] [facility] [address] [place] [address] PCP - General Family Practice 12/12/22 08/22/24 Yasmin Reynolds NP [address] [facility] [address] [place] [address] PCP - General Infectious Diseases 08/23/24 08/25/24 No, Physician PCP - General 09/09/24 09/11/24 Burton Akhtar MD PCP - General Family Medicine 09/12/24 01/27/25 Burton Akhtar MD [address] [facility] [address] [place] [address] PCP - General Family Medicine 01/28/25 José Verduzco DPM [address] [place] [address] Consulting Physician Foot and Ankle Surg 07/26/22 Anup Mayo MD [facility] [facility] [address] [place] [address] Endocrinology Diabetes & Metabolism 07/26/22 Tha Arzate MD [facility] [facility] [address] [place] [address] Consulting Physician Cardiovascular Disease 07/26/22 Salinas Hawkins MD [facility] [facility] [address] [place] [address] Surgeon General Surgery 09/09/22 Lula Lafleur, RN [address] [facility] [address] [place], [place] [address] Street Inspector 07/19/24 Montse Asencio, SAFETY PHYSICIAN [address] [facility] [address] [place] [id number] Tire Regrooving Machine Operator 07/30/24 09/16/24 Hu Bruno MD [address] [facility] [address] [place] [address] Consulting Physician Vascular Surgery 08/27/24 Elyse Young CNM [address] [facility] [address] [place], [place] [id number] Nurse Practitioner Psychiatry 01/10/25 documented as of this encounter
--- OUTSIDE RECORDS SUMMARY | 2025-03-13 10:49 | XMS_ITS | Patient Health Record ---
Author Organization [facility] [employer] Address [address] [place] [address] Care Team Providers Care Torque Tester Name Role Phone Hermilo NELSON, Burton Olivier Primary Care Provider Unavailable Penny Rivera Unavailable [phone] Elyse Young Unavailable [phone] Allergies Allergen (clinical drug ingredient) Drug/Non Drug Allergy documented on EMR Reaction Allergy Type Onset Date Status carbidopa / levodopa Carbidopa-Levodopa rash Drug Aller gy Active Latex Latex Unknown Allergy 10/12/2023 Active Reason For Referral No Information Medications Medication SIG (Take, Route, Frequency, Duration) Notes Start Date End Date Status DULoxetine HCl 60 MG 1 capsule in the mo rning Oral Once a day; Duration: 90 days Active lamoTRIgine 100 MG 1 tablet Oral twice a day; Duration: 90 days Active Metoprolol Tartrate 50 MG Oral; Duration: 30 Days Active ARIPiprazole 10 MG 1 tablet Oral Once a day; Duration: 90 days Active Losartan Potassium 100 MG Oral; Duration: 30 Days Active Immunizations Vaccine Route Administration Date Status Comme nts Influenza, seasonal, injecta ble, preservative free, 3 yrs and above Unknown 06/17/2014 Administered Pfizer [employer]ion[employer] Covid-19 Vac cine 2nd dose Unknown 10/20/2020 Administered Pfizer [employer] Covid-19 Vac cine 2nd dose Unknown 11/11/2020 Administered Pfizer [employer] Covid-19 Vac cine 2nd dose Unknown 10/12/2021 Administered Social History Tobacco Use: Social History Observation Description Date Details (start date - stop date) Current some da y smoker NA - NA Sex Assigned At : Social History Observation Description Sex Assigned At Female Tobacco Control (Standard) Question Answer Notes Tobacco use: Current some day smoker Problems Problem Type SNOMED Code ICD Code Onset Dates Problem Status W/U Status Risk Notes Problem Generalized anxiety disorder (18852589) Generalized anxiety disorder (F41.1) 4 Active confirmed Problem Insomnia disorder related to another mental disorder (44436511) Insomnia due to other mental disorder (F51.05) 4 Active confirmed Problem Obstructive sleep apnea syndrome (disorder) (69400075) Obstructive sleep apnea (adult) (pediatric) (G47.33) 4 Active confirmed Problem Bipolar I disorder (265659024) Bipolar I disorder (F31.9) Active confirmed Vital Signs Heart Rate 63 /min 10/04/2024 Height-cm 187.96 cm 10/04/2024 Blood pressure diastolic 75 mm Hg 10/04/2024 Height 74.00 in 10/04/2024 Blood pressure systolic 160 mm Hg 10/04/2024 Encounters Encounter Location Date Provider Diagnosis [facility] [employer] [place] [id number] [facility] [address] [address] 04/12/2024 Elyse Young Bipolar I disorder F31.9 ; Generalized anxiety disorder F41.1 ; Insomnia due to other mental disorder F51.05 and Obstructive sleep apnea (adult) (pediatric) G47.33 [facility] [employer] [place] [id number] [facility] [address] [address] 10/04/2024 Penny Rivera Bipolar I disorder F31.9 ; Generalized anxiety disorder F41.1 ; Insomnia due to other mental disorder F51.05 ; Obstructive sleep apnea (adult) (pediatric) G47.33 and Benign essential HTN I10 [facility] [employer] [place] [address] [facility] [address] [address] 05/01/2024 Elyse Young [facility] [employer] [place] [address] [facility] [address] [address] 10/10/2024 Penny Rivera Generalized anxiety disorder F41.1 and Bipolar I disorder F31.9 Assessments Encounter Date Diagnosis (ICD Code) Assessment Notes Treatment Notes Treatment Clinical Notes Section Notes 04/12/2024 Bipolar I disorder (ICD-10 - F31.9) cont abilify 10mg dailycont lamotrigine 100mg BID; take consistently, monitor for rash increased visual hallucinations , reports increasing prior to taking sinemet discuss options, recomend increase abilify, refuses, or could decrease duloxetine, refuses. says let sleeping dogs lie, they don't bother me she does not want to risk worsening of other sx. Discuss monitoring and reach out if worsening or other concerns. May also have been exacerbated by sinemet, has been off about 2 wks, so might still have some improvement. will cont current meds, education on medications and treatment course f/u in 3 months, monitor and call for earlier if concerns 10/04/2024 Generalized anxiety disorder (ICD-10 - F41.1) Bipolar Disorder - Mood stable on current medications Plan: - Continue Abilify 10 mg daily - Continue Lamotrigine 100 mg twice a day Anxiety - No concerns reported Plan: - Continue Duloxetine 60 mg daily Insomnia - Occasional difficulty sleeping reported - Reports sleep apnea not problematic, does not wear CPAP Plan: - untreated JOSE L, have recommended f/u with PCP or sleep medicine about getting new/different CPAP - Encourage sleep hygiene practices Follow-up in 3 months to monitor progress and address concerns 04/12/2024 Generalized anxiety disorder (ICD-10 - F41.1) cont duloxetine 60mg daily-takes in am 10/04/2024 Bipolar I disorder (ICD-10 - F31.9) Bipolar Disorder - Mood stable on current medications Plan: - Continue Abilify 10 mg daily - Continue Lamotrigine 100 mg twice a day Anxiety - No concerns reported Plan: - Continue Duloxetine 60 mg daily Insomnia - Occasional difficulty sleeping reported - Reports sleep apnea not problematic, does not wear CPAP Plan: - untreated JOSE L, have recommended f/u with PCP or sleep medicine about getting new/different CPAP - Encourage sleep hygiene practices Follow-up in 3 months to monitor progress and address concerns 10/10/2024 Generalized anxiety disorder (ICD-10 - F41.1) 10/10/2024 Bipolar I disorder (ICD-10 - F31.9) 04/12/2024 Insomnia due to other mental disorder (ICD-10 - F51.05) practice good sleep hygeine caution with sedating agents, falls, JOSE L not treated 10/04/2024 Insomnia due to other mental disorder (ICD-10 - F51.05) Bipolar Disorder - Mood stable on current medications Plan: - Continue Abilify 10 mg daily - Continue Lamotrigine 100 mg twice a day Anxiety - No concerns reported Plan: - Continue Duloxetine 60 mg daily Insomnia - Occasional difficulty sleeping reported - Reports sleep apnea not problematic, does not wear CPAP Plan: - untreated JOSE L, have recommended f/u with PCP or sleep medicine about getting new/different CPAP - Encourage sleep hygiene practices Follow-up in 3 months to monitor progress and address concerns 10/04/2024 Obstructive sleep apnea (adult) (pediatric) (ICD-10 - G47.33) untreated JOSE L, have recommended f/u with PCP or sleep medicine about getting new/different CPAP Bipolar Disorder - Mood stable on current medications Plan: - Continue Abilify 10 mg daily - Continue Lamotrigine 100 mg twice a day Anxiety - No concerns reported Plan: - Continue Duloxetine 60 mg daily Insomnia - Occasional difficulty sleeping reported - Reports sleep apnea not problematic, does not wear CPAP Plan: - untreated JOSE L, have recommended f/u with PCP or sleep medicine about getting new/different CPAP - Encourage sleep hygiene practices Follow-up in 3 months to monitor progress and address concerns 04/12/2024 Obstructive sleep apnea (adult) (pediatric) (ICD-10 - G47.33) untreated JOSE L, have recommended f/u with PCP or sleep medicine about getting new/different CPAP 10/04/2024 Benign essential HTN (ICD-10 - I10) Bipolar Disorder - Mood stable on current medications Plan: - Continue Abilify 10 mg daily - Continue Lamotrigine 100 mg twice a day Anxiety - No concerns reported Plan: - Continue Duloxetine 60 mg daily Insomnia - Occasional difficulty sleeping reported - Reports sleep apnea not problematic, does not wear CPAP Plan: - untreated JOSE L, have recommended f/u with PCP or sleep medicine about getting new/different CPAP - Encourage sleep hygiene practices Follow-up in 3 months to monitor progress and address concerns Plan Of Treatment Next Appt Details Provider Name:Penny rae, 03/24/2025 11:00:00 AM, [address], [facility] [address], [place], [address], Insurance Providers Payer Name Payer Address Payer Phone Subscriber Number Group Number Insured Name Patient Relationship to Insured Coverage Start Date Coverage End Date [employer] [address] [place] [address] [id number] Q[employer] IN[employer] Self - patient is the insured Medical (General) History Medical History History ICD Code Hypnopompic hallucinations Obesity 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
--- OUTSIDE RECORDS SUMMARY | 2025-03-13 10:50 | XMS_ITS ---
Author Organization [facility] [employer] Address [address] [facility] [address] [facility] [address] [place] [address] Care Team Providers Care Landfill Grader Name Role Phone Hermilo NELSON, Burton Olivier Primary Care Provider Unavailable Penny Rivera Unavailable [phone] REASON FOR VISIT follow-up Social History Sex Assigned At : Social History Observation Description Sex Assigned At Female Encounters Encounter Location Date Provider Diagnosis [facility] [employer] [facility] [address] [facility] [address] [facility] [address] [place] [address] 03/10/2025 Penny Rivera Plan Of Treatment Next Appt Details Provider Name:Penny rae, 03/24/2025 11:00:00 AM, [address], [facility] [address], [place], [address], Progress Notes * SUZE QUIQUE ADOB:[birth year] (69 yo F)Acc No.[id number]:03/10/2025 Patient: QUIQUE CORRALES Provider: Fela Rivera :1955 A ge:69 Y S ex:Female Date:03/10/2025 Address:[address] [facility] Pcp:Burton Akhtar MD Subjective: * Chief Complaints: * 1 . Follow-up. * Medical History: Objective: * Vitals: Assessment: Plan: * Treatment: * Billing Information: * Visit Code: * Procedure Codes: * Electronic signature of Deny Rivera on 03/13/2025 at 10:49 AM CDT Sign off status: Pending * Provider: Fela Rivera Date: 03/10/2025 Generated for Lázaro Ruelas on: 03/13/2025 10:49 AM CDT
== END 2025-03-13 10:44 | disposition home or self-care (01) ==
PROVIDERS: PCP Internal Medicine; Visit Provider Family Medicine
DX: M79.642 Pain in left hand (principal)
CPT/HCPCS: 73130

== ENCOUNTER 2025-04-14 19:47 | Inpatient (IN) | payer MEDICARE, SELFPAY ==
[2025-04-14] VITALS (31 sets, daily range): BP systolic 99–125; BP diastolic 40–47; PULSE 60–102; RESP 13–20; TEMP 34.9–35.6; O2SAT 93–100
--- NOTE | ~2025-04-14 | CT_ITS ---
EXAMINATION: CT lumbar spine wo con DATE: 04/23/2025 15:12 INDICATION: Weakness and lower extremity TECHNIQUE: Computed tomography (CT) of the lumbar spine was performed without intravenous contrast. The dose-length product was 1580.86 mGy-cm. Automated exposure control and iterative reconstruction technique were employed. COMPARISON: None FINDINGS: There is osteopenia. There is multilevel disc narrowing involving all lumbar levels as well as the T11-12 and T12-L1 spaces. There is mild dextrocurvature. There are laminectomy changes at L2-L5. There is severe multilevel central canal and bilateral neural foraminal narrowing at T11-12 through L5-S1 secondary to combination of endplate hypertrophy, annular disc bulging and facet hypertrophy. There is atherosclerosis of the aorta without aneurysm. No acute fracture or traumatic malalignment is identified. There is a 3 mm nonobstructing left renal stone. IMPRESSION: 1. Severe lower thoracic and lumbar spondylosis with multilevel central canal and bilateral neural foraminal narrowing. Reviewed, dictated and finalized at location O. IMPRESSION: 1. Severe lower thoracic and lumbar spondylosis with multilevel central canal a nd bilateral neural foraminal narrowing.
--- NOTE | ~2025-04-14 | XR_ITS ---
XR chest 1V portable 04/17/2025 05:37 Indication: Respiratory failure Procedure: AP portable chest Comparison: Comparison to multiple prior studies sequentially, with oldest reviewed study dated 02/12/2025. Findings: Endotracheal tube tip 5 cm above the robbi. Right IJ central line tip near the cavoatrial junction. NG tube passes into the stomach. Persistent retrocardiac consolidation with small left pleural effusion. Cardiomegaly. Impression: 1: Stable retrocardiac consolidation which may represent atelectasis and/or pneumonia. 2: Small left pleural effusion. Reviewed, dictated and finalized at location O. Impression: 1: Stable retrocardiac consolidation which may represent atelectasis and/or pne umonia. 2: Small left pleural effusion.
--- NOTE | ~2025-04-14 | XR_ITS ---
EXAMINATION: XR chest 1V portable, 04/19/2025 5:22 CDT HISTORY: Respiratory failure, mechanical ventilation COMPARISON: No comparisons available. Technique: Single view. Findings: Small basilar infiltrate with trace effusions. Mild pulmonary venous congestion. No pneumothorax. Mild cardiomegaly. Mediastinal and hilar contours are within normal limits. Bony thorax no acute abnormality. Right central line terminates in the SVC. Impression: CHF. Superimposed probable pneumonia Reviewed, dictated and finalized at location A. Impression: CHF. Superimposed probable pneumonia
--- NOTE | ~2025-04-14 | XR_ITS ---
XR chest 1V portable 04/20/2025 05:42 Indication: Respiratory failure Procedure: AP portable chest Comparison: Comparison to multiple prior studies sequentially, with oldest reviewed study dated 04/16/2025. Findings: Right IJ central line tip in the SVC. There is bilateral interstitial infiltrates with confluence in the left lung base, without significant change. Heart size normal. No significant effusion or pneumothorax. Impression: 1: Bilateral interstitial infiltrates with consolidation in the left lung base. Findings compatible with edema with superimposed atelectasis/pneumonia. Reviewed, dictated and finalized at location O. Impression: 1: Bilateral interstitial infiltrates with consolidation in the left lung base. Findings compatible with edema with superimposed atelectasis/pneumonia.
--- NOTE | ~2025-04-14 | XR_ITS ---
XR chest 1V portable 04/18/2025 06:04 Indication: Respiratory failure. Procedure: AP portable chest Comparison: Comparison to multiple prior studies sequentially, with oldest reviewed study dated 04/14/2025. Findings: Endotracheal tube tip 6.2 cm above the robbi. NG tube in the stomach. Right IJ central line tip near the cavoatrial junction. Cardiomegaly. Focal consolidation left lower lobe unchanged. There is diffuse mild interstitial infiltrates which may select edema. Impression: 1: Focal consolidation left lung base which may represent pneumonia and/or atelectasis. 2: Cardiomegaly with probable mild interstitial edema. Reviewed, dictated and finalized at location O. Impression: 1: Focal consolidation left lung base which may represent pneumonia and/or atel ectasis. 2: Cardiomegaly with probable mild interstitial edema.
--- NOTE | ~2025-04-14 | XR_ITS ---
EXAMINATION: XR chest 1V portable, 04/27/2025 17:00 CDT HISTORY: fever, possible aspiration COMPARISON: No comparisons available. Technique: Single view. Findings: Moderate pulmonary venous congestion. Small bibasilar infiltrates. No pneumothorax. Moderate cardiomegaly. Mediastinal and hilar contours are within normal limits. Bony thorax no acute abnormality. Impression: CHF. Early basilar pneumonia suspected Reviewed, dictated and finalized at location A. Impression: CHF. Early basilar pneumonia suspected
--- NOTE | ~2025-04-14 | XR_ITS ---
MODIFIED ESOPHAGRAM HISTORY: Dysphagia. TECHNIQUE: Modified barium esophagram was performed on 04/28/2025. I administered fluoroscopy and performed the exam with speech pathologist. Patient was seated for lateral fluoroscopic imaging for ingestion of thin liquids, pudding, solids and quantified amounts, followed by thin liquids in uncontrolled amounts. This was recorded on tape. A single fluoroscopic spot image was also recorded. The DAP for this procedure was 2.1 Gycm2. The amount of fluoroscopy time used during this procedure was 1.9 minutes. FINDINGS: Oral stage: Adequate function. Pharyngeal stage: Reduced laryngeal elevation. With thin liquids trace laryngeal penetration without aspiration with thin liquids. Cervical/esophageal stage: Adequate function. IMPRESSION: Virtual dysphagia with trace laryngeal penetration without aspiration with thin liquids. Please correlate with speech pathologist findings and specific feeding recommendations. Reviewed, dictated and finalized at location A. IMPRESSION: Virtual dysphagia with trace laryngeal penetration without aspirati on with thin liquids. Please correlate with speech pathologist findings and sp ecific feeding recommendations.
--- NOTE | ~2025-04-14 | CT_ITS ---
EXAMINATION: CT brain wo con DATE: 04/14/2025 22:25 INDICATION: Overdose. TECHNIQUE: Computed tomography (CT) of the head was performed without intravenous contrast. The dose-length product was 756.67 mGy-cm. Automated exposure control and iterative reconstruction technique were employed. COMPARISON: CT dated 03/25/2017 FINDINGS: Brain parenchymal volume is normal for age. There are scattered mild periventricular and subcortical white matter changes, most likely related to small vessel ischemic disease (microangiopathy). There is intracranial atherosclerosis. No acute infarction, hemorrhage, mass or mass effect. No ve ntriculomegaly or midline shift. Endotracheal tube is present. There is mild mucosal thickening of the ethmoid sinuses. Small left mastoid effusion. No depressed skull fractures. IMPRESSION: 1. No acute intracranial abnormality. Reviewed, dictated and finalized at location O.
--- NOTE | ~2025-04-14 | CT_ITS ---
EXAM: CT cervical spine wo con - 04/23/2025 14:50 CDT History: 69 years old Female with weakness in upper extremity COMPARISON: None available. PROCEDURE: CT of the cervical spine without contrast. Axial, sagittal and coronal reformatted planes were evaluated. Automatic exposure control was used for this study. FINDINGS: No acute fracture or subluxation. Straightening of cervical lordosis, likely positional or may be related to muscle spasm. Multilevel degenerative changes of the cervical spine include varying degrees of disk space narrowing, endplate osteophytosis as well as facet and uncal arthropathy. Prevertebral soft tissues are within normal limits. Visualized lung apices are clear. IMPRESSION: No evidence for cervical spine fracture or traumatic subluxation. Multilevel degenerative changes of the cervical spine. Reviewed, dictated and finalized at location N.
--- NOTE | ~2025-04-14 | XR_ITS ---
EXAMINATION: XR chest 1V portable DATE: 04/25/2025 07:04 INDICATION: Possible aspiration TECHNIQUE: frontal view of the chest was obtained. COMPARISON: Chest radiograph dated 04/20/2025 FINDINGS: Elevation the left hemidiaphragm. Persistent opacities in the left lung base with configuration favoring atelectasis over pneumonia or aspiration. No new airspace opacities, pulmonary edema, pleural effusion or pneumothorax. Heart size is normal. IMPRESSION: 1. Chronic elevation the left hemidiaphragm with persistent left basilar opacities opacities and favor atelectasis over pneumonia. Reviewed, dictated and finalized at location A. IMPRESSION: 1. Chronic elevation the left hemidiaphragm with persistent left basilar opacit ies opacities and favor atelectasis over pneumonia.
--- NOTE | ~2025-04-14 | XR_ITS ---
XR chest 1V portable 04/16/2025 05:45 Indication: Respiratory failure. Mechanical ventilation. Procedure: AP portable chest Comparison: Comparison to multiple prior studies sequentially, with oldest reviewed study dated 02/12/2025. Findings: Persistent retrocardiac airspace disease. Small left pleural effusion. Endotracheal tube 5.3 cm above the robbi. Right IJ central line tip near the cavoatrial junction. NG tube in the stomach. Impression: 1: Persistent retrocardiac airspace disease which may represent atelectasis and/or pneumonia. 2: Small left pleural effusion. Reviewed, dictated and finalized at location O. Impression: 1: Persistent retrocardiac airspace disease which may represent atelectasis and /or pneumonia. 2: Small left pleural effusion.
--- NOTE | ~2025-04-14 | XR_ITS ---
EXAMINATION: XR chest ET placement, XR abdomen gastric tube insert DATE: 04/14/2025 20:37 INDICATION: Overdose. Endotracheal tube and orogastric tube placement. TECHNIQUE: 1. AP view of the chest was obtained. 2. AP view of the abdomen was obtained. COMPARISON: Chest radiograph dated 02/12/2025 FINDINGS: Chest: Endotracheal tube tip 4.7 cm above the robbi. Elevation of the left hemidiaphragm. Pulmonary vascular congestion with mild increased interstitial pattern in the right perihilar region. More patchy airspace opacities in the left lung. No pleural effusion or pneumothorax. Heart size is normal. Abdomen: The pelvis and right abdomen are excluded from the [id number]. Orogastric tube tip in proximal side port in the body the stomach. No dilated loops of gas- filled bowel in the visualized abdomen. IMPRESSION: 1. Endotracheal tube and orogastric tube in expected positions. 2. Decreased left lung volume with elevation the left hemidiaphragm and patchy airspace opacities throughout the left lung which could represent atelectasis and/or pneumonia. 3. Pulmonary vascular congestion with increased interstitial pattern in the right perihilar region which could represent mild pulmonary edema and/or pneumonia. Reviewed, dictated and finalized at location A. IMPRESSION: 1. Endotracheal tube and orogastric tube in expected positions. 2. Decreased left lung volume with elevation the left hemidiaphragm and patchy airspace opacities throughout the left lung which could represent atelectasis a nd/or pneumonia. 3. Pulmonary vascular congestion with increased interstitial pattern in the rig ht perihilar region which could represent mild pulmonary edema and/or pneumonia .
--- NOTE | ~2025-04-14 | XR_ITS ---
XR chest port-a-cath/central 04/14/2025 22:04 Indication: Central line placement Procedure: AP portable chest Comparison: 04/14/2025 Findings: Right IJ central line tip near the cavoatrial junction. NG tube in the stomach. Cardiomegaly. There is pulmonary edema. There is left basilar consolidation which may represent atelectasis and/or pneumonia. No pneumothorax. Impression: 1: Cardiomegaly with interstitial edema. 2: Persistent retrocardiac opacification which may represent atelectasis and/or pneumonia. Reviewed, dictated and finalized at location O. Impression: 1: Cardiomegaly with interstitial edema. 2: Persistent retrocardiac opacification which may represent atelectasis and/or pneumonia.
--- NOTE | ~2025-04-14 | XR_ITS ---
MODIFIED ESOPHAGRAM HISTORY: Rule out aspiration TECHNIQUE: Modified barium esophagram was performed on 04/22/2025. I administered fluoroscopy and performed the exam with speech pathologist. Patient was seated for lateral fluoroscopic imaging for ingestion of thin liquids, pudding, solids and quantified amounts, followed by thin liquids in uncontrolled amounts. This was recorded on tape. A single fluoroscopic spot image was also recorded. The DAP for this procedure was 2.264 Gycm2. The amount of fluoroscopy time used during this procedure was 1.9 minutes. FINDINGS: Oral stage: Adequate function. Pharyngeal stage: Reduced laryngeal elevation. There is laryngeal penetration without aspiration with thin liquids which eliminated with decreased size of the bolus and with chin tuck position. Cervical/esophageal stage: Adequate function. IMPRESSION: Laryngeal penetration without aspiration with thin liquids which improved with chin tuck position and decreased bolus size. Please correlate with speech pathologist findings and specific feeding recommendations. Reviewed, dictated and finalized at location A. IMPRESSION: Laryngeal penetration without aspiration with thin liquids which im proved with chin tuck position and decreased bolus size. Please correlate with speech pathologist findings and specific feeding recommendations.
--- NOTE | 2025-04-14 19:40 | PC.NURSE ---
AT 1938 ON 04/14/2025 ANSHUL ANDRE CALLED FROM [place] [facility]. [facility] HAD PREVIOUSLY MADE [facility] AWARE OF THIS PT. ANSHUL INFORMED ME THAT THIS PT WILL NEED FLUIDS AND MULTIPLE CONCURRENT THERAPIES. SHE STATED THAT SHE WILL FAX INFORMATION. ANSHUL ADVISED IF THIS PT'S BG IS HIGH IT CAN BE INDICATIVE OF A BAD OVERDOSE.
--- NOTE | 2025-04-14 19:52 | ECG_ITS ---
Test Date: 2025-04-14 21:01:46 Measurements Intervals [place] Rate: 62 P: 0 CA: 0 QRS: -12 QRSD: 124 T: 56 QT: 420 QTc: 428 Interpretive Statements SINUS RHYTHM WITH INTERMITTENT JUNCTIONAL COMPLEXES INCOMPLETE LEFT BUNDLE BRANCH BLOCK BORDERLINE ST-T WAVE ABNORMALITY- LATERAL LEADS BASELINE WANDER- II, III, AVR, AVL, AVF ABNORMAL ECG Compared to ECG 02/15/2025 05:12:22 HEART RATE HAS INCREASED Electronically Signed On 04-15-2025 06:22:13 CDT by Homer Patrick D.O.
[2025-04-14] MEDS: SODIUM CHLORIDE 0.9% IV 1,000 ML 999 ML IV CONT ×2 (19:55→20:10)
[2025-04-14] MEDS: ONDANSETRON INJ 4 MG/2 ML VIAL 8 MG (19:55)
--- OUTSIDE RECORDS SUMMARY | 2025-04-14 19:56 | XMS_ITS | Clinical Summary ---
Author Organization [facility] Address [address] [place] [address] Care Team Providers Care Spike Driver Name Role Phone José Verduzco DPM Unavailable [phone] Anup Mayo MD Unavailable [phone] Tha Arzate MD Unavailable Salinas Hawkins MD Unavailable [phone] Lula Lafleur RN Unavailable Hu Bruno MD Unavailable Darren Young CNM Unavailable [phone] Burton Akhtar MD Primary Care Provider Allergies Active Allergy Reactions Criticality Noted Date Comments Adhesive Rash High 11/02/2021 Carbidopa-Levodopa Rash Medium 04/18/2024 Latex Rash Medium 05/18/[address] (CYMBALTA) 60 mg capsule Take 1 capsule (60 mg total) by mouth daily before breakfast Active aspirin 81 mg enteric coated tabletIndications :cardiovascular disease Take 1 tablet (81 mg total) by mouth daily 30 tablet 11 07/26/20 22 Active calcium carbonate (CALCIUM 600 ORAL)Indications: Low bone density Take 600 mg of base by mouth daily. Indications: Low bone density 12/06/19 21 Active losartan (COZAAR) 100 mg tablet Take 1 tablet (100 mg total) by mouth daily 03/01/20 23 Active acetaminophen (TYLENOL) 325 mg tabletIndications :Spinal stenosis of lumbar region with neurogenic claudication Take 2 tablets (650 mg total) by mouth 3 (three) times a day 07/15/20 24 Active melatonin 5 mg tabletIndications :Type 2 diabetes mellitus with diabetic polyneuropathy, with long-term current use of insulin (HCC) Take 1 tablet (5 mg total) by mouth nightly 07/15/20 24 Active tamsulosin (FLOMAX) 0.4 mg extended release capsuleIndication s:Urinary retention Take 1 capsule (0.4 mg total) by mouth nightly 30 capsule 07/15/20 Active insulin glargine-lixisena tide (Soliqua ) 100 unit-33 mcg/mL insulin pen Inject 45 Units under the skin daily Active cholecalciferol (VITAMIN D-3) 2000 unit tablet Take 1 tablet (2,000 Units total) by mouth daily Active cyanocobalamin (Vitamin B-12) 500 mcg tabletIndications :Prevention of Vitamin B12 Deficiency Take 1 tablet (500 mcg total) by mouth daily Active baclofen (LIORESAL) 10 mg tablet TAKE ONE TABLET (10MG TOTAL) BY MOUTH THREE TIMES DAILY NEEDED FOR MUSCLE SPASMS 30 tablet 09/02/19 25 Active lactulose (CEPHULAC) 10 gram packetIndications :Drug-induced constipation Take 1 packet (10 g total) by mouth 2 (two) times a day 60 packet 2 09/12/19 25 Active amLODIPine (NORVASC) 10 mg tabletIndications :Essential hypertension TAKE ONE TABLET (10 MG) BY MOUTH DAILY 90 tablet 11 10/07/19 25 Active NovoLOG 100 unit/mL (3 mL) pen for injection INJECT 60 UNITS UNDER THE SKIN THREE TIMES DAILY BEFORE MEALS 150 mL 3 11/12/19 25 Active atorvastatin (LIPITOR) 80 mg tablet Take 1 tablet (80 mg total) by mouth daily 90 tablet 1 11/20/19 25 Active pen needle, diabetic (Pen Needle) 31 gauge x 5/16 needle Use to inject insulin 3 times daily 300 each 1 11/26/19 25 Active ezetimibe (ZETIA) 10 mg tabletIndications :Mixed diabetic hyperlipidemia associated with type 2 diabetes mellitus (HCC) Take 1 tablet (10 mg total) by mouth daily 90 tablet 3 01/11/20 25 Active hydrALAZINE (APRESOLINE) 50 mg tabletIndications :Hypertension associated with type 2 diabetes mellitus (HCC) TAKE ONE TABLET BY MOUTH THREE TIMES DAILY 300 tablet 1 01/22/20 25 Active gabapentin (NEURONTIN) 300 mg capsuleIndication s:Spinal stenosis of lumbar region with neurogenic claudication TAKE 1 CAPSULE BY MOUTH THREE TIMES DAILY 300 capsule 1 02/16/20 25 Active Gvoke HypoPen 2-Pack 1 mg/0.2 mL auto-injectorIndi cations:patient with diabetes mellitus at risk of hypoglycemia Inject 0.2 mL under the skin as needed (for severe Hypoglycemia ) 0.4 mL 3 03/03/20 25 Active Xarelto 2.5 mg tablet TAKE ONE TABLET (2.5MG TOTAL) BY MOUTH TWICE DAILY 180 tablet 1 03/21/20 25 Active Farxiga 10 mg tabletIndications :Type 2 diabetes mellitus with diabetic polyneuropathy, with long-term current use of insulin ([facility]),Type 2 diabetes mellitus with microalbuminuria, with long-term current use of insulin ([facility]),CKD stage 2 due to type 2 diabetes mellitus ([facility]) TAKE ONE TABLET BY MOUTH (10 MG TOTAL) BY MOUTH DAILY 90 tablet 11 03/31/20 25 Active clopidogreL (PLAVIX) 75 mg tabletIndications :PAD (peripheral artery disease) Take 1 tablet by mouth once daily 90 tablet 03/31/20 25 Active lamoTRIgine (LaMICtal) 100 mg tablet Take 1 tablet (100 mg total) by mouth 2 (two) times a day 09/27/19 18 2024 Discontinued(R eorder) ARIPiprazole (ABILIFY) 10 mg tablet Take 1 tablet (10 mg total) by mouth daily for 90 days 09/13/19 24 2024 Discontinued(R eorder) rivaroxaban (XARELTO) 2.5 mg tablet Take 1 tablet (2.5 mg total) by mouth 2 (two) times a day 2024 Discontinued clopidogreL (PLAVIX) 75 mg tabletIndications :myocardial infarction prevention,cardio vascular disease Take 1 tablet (75 mg total) by mouth daily 90 tablet 1 09/17/19 25 2024 Discontinued Farxiga 10 mg tabletIndications :Type 2 diabetes mellitus with diabetic polyneuropathy, with long-term current use of insulin (HCC),Type 2 diabetes mellitus with microalbuminuria, with long-term current use of insulin (HCC),CKD stage 2 due to type 2 diabetes mellitus (HCC) {VIAL] TAKE ONE TABLET (10 MG TOTAL) BY MOUTH DAILY 90 tablet 1 10/03/19 25 2024 Discontinued cephalexin (KEFLEX) 500 mg capsuleIndication s:Urinary Tract/Genitourina ry Infection Take 1 capsule (500 mg total) by mouth 2 (two) times a day for 7 days 14 capsule 03/27/20 25 2024 ARIPiprazole (ABILIFY) 10 mg tablet Take 1 tablet (10 mg total) by mouth daily for 90 days 90 tablet 1 04/02/20 25 2024 Discontinued lamoTRIgine (LaMICtal) 100 mg tablet Take 1 tablet (100 mg total) by mouth 2 (two) times a day 90 tablet 04/02/20 25 2024 Discontinued Active Problems Problem Noted Date [...] weekly) Assessment & Plan (08/06/2024 8:56 PM SECURITY LEAD): - ADA/heart healthy/renal diet Multilevel thoracic spondylosis [...] t.i.d. - she is no longer on [place] 5-325 Q6hrs - reviewed PDMP, last refilled in 05/2024 - reports she used to get injections from Pain management in the past but never wants to get injections in future, reports hx of developing abscesses - during past hospital stay, diagnosed with spinal stensosi, was discharged with narcotic pain medications - Consider pain management referral Assessment & Plan (08/06/2024 9:04 PM SECURITY LEAD): - Chronic; on conservative tx; continue home PT - Continues on [place] 5/325 mg- 1 tab 4 times daily p.r.n., baclofen 10 mg t.i.d. p.r.n., gabapentin 600 mg t.i.d. - Consider pain management referral Spinal stenosis of lumbar re gion with neurogenic claudication 06/12/2024 Overview (10/28/2024): Chronic back pain Assessment & Plan (07/14/2024 9:00 PM SECURITY LEAD): Pain has been adequately controlled, continue scheduled baclofen, scheduled Tylenol, scheduled [place]. Patient continues to require significant assistance for bed mobility and transfers, unfortunately has not made much progress with therapy. Patient was felt stable for discharge on 07/15/2024 to return home with family who has demonstrated the ability to care for patient. We will arrange home health PT, OT, RN. Assessment & Plan (07/08/2024 1:25 PM SECURITY LEAD): Pain is controlled, continue scheduled norco, baclofen, tylenol. Pt has not made much progress, therapy working on family transfers with zaynab. Anticipate that she will need 24 hour at discharge. Assessment & Plan (07/03/2024 12:49 PM SECURITY LEAD): Pain is better controlled with current regimen of scheduled [place] 5/325 mg 1 tab q.i.d., baclofen 10 mg t.i.d., Tylenol t.i.d. therapies are in place, monitor patient's progress. Has not made much progress with slide board transfers, but has been sitting up in chair for a short period of time in the afternoons. Assessment & Plan (06/25/2024 1:57 PM SECURITY LEAD): Patient continues to struggle with pain with [...] in relationship to therapy. We will scheduled [place] 1 tab q.i.d., continue baclofen 10 mg t.i.d., scheduled Tylenol t.i.d. Assessment & Plan (06/22/2024 11:02 AM CDT): She is currently in appeal. Later, I was advised that her appeal had been recognized and she will not be discharged soon. She does report that her pain control is improved. I recommend continuing gabapentin as scripted and [place] as scripted t.i.d. p.r.n. pain. Also continue [...] has been having difficulty receiving her p.r.n. [place] due to nursing staff. Agreeable to scheduled [place] t.i.d., schedule baclofen increase gabapentin dosing. We will need to monitor closely for over-sedation, inability to participate in therapy due to lethargy Assessment & Plan (06/14/2024 11:05 AM CDT): Pain remains uncontrolled, we will scheduled [place] 5/325 mg, 1 tablet b.i.d., and t.i.d. p.r.n.. We will also increase gabapentin to 300 mg t.i.d.(creatinine clearance 84). Continue p.r.n. baclofen. Assessment & Plan (06/12/2024 8:31 PM CDT): We will continue conservative management. Therapies are in place, monitor patient's progress. Continue pain control with baclofen t.i.d. p.r.n., gabapentin 200 mg b.i.d., [place] 5/325 1 tablet q.6 hours p.r.n.. We [...] - reports she has had Colonoscopy in [place] about 2 years ago, [facility] [...] to Neurology for patient - Dr. Rodriguez ([facility]) neurology Assessment & Plan (10/28/2024 2:10 AM CDT): - reports chronic - prior PCP had prescribed Carbidopa-Levodopa but patient discontinued it, states she was allergic to it [employer] continuous glucose monitoring device 12/19 Assessment & [...] years ago - long diabetes hx since [id number] Lab Results Component Value Date LDLCALC 50 04/18/2024 Assessment & Plan (08/06/2024 8:42 PM SECURITY LEAD): - chronic; stable - Continues on Xarelto 2.5 mg b.i.d., Plavix 75 mg daily, ASA 81 mg daily - Follow-up with cardiology Assessment & Plan (04/26/2024 3:39 PM CDT): Chronic. She still has a chronic lower extremity wound that is in the process of healing. She sees [facility] vascular for vascular side of things. Cholesterol is controlled. Continue low-dose Xarelto, aspirin, Clopidogrel as well as cholesterol medications for risk factor modification Assessment & Plan (01/24/2024 7:18 PM CDT): Patient reports she has a new recent wound on the left leg. Working with the wound care center. Were closely with specialists. Continue cholesterol medication. Assessment & Plan (09/18/2023 5:50 PM SECURITY LEAD): Patient has significant atherosclerosis of the lower [...] 08/24/2024 Assessment & Plan (08/06/2024 8:52 PM SECURITY LEAD): - Chronic; slightly decreased from prior - [...] benefits Assessment & Plan (09/18/2023 5:49 PM SECURITY LEAD): Patient has chronic diabetes with stage 2 chronic kidney disease. Continue care per endocrinology. Monitor renal function Assessment & Plan (06/14/2023 6:45 PM CDT): Diabetes was uncontrolled on last check. Recent blood sugars out arrange. Patient was encouraged to work closely with her kidney trimmer. She is an appointment coming up in 2 weeks. Discussed blood sugar goals. Encouraged her to continue working on diabetic diet. Encouraged her to work on exercise as able Bipolar 1 disorder, depressed 12/12/2022 Overview (02/16/2025): Follows with Psychiatry - Psychiatrist is DARREN YOUNG NP in [place] Assessment & Plan (01/10/2025 12:37 PM CDT): [...] provider Assessment & Plan (08/06/2024 8:43 PM SECURITY LEAD): - Chronic, stable on current regimen - Continue duloxetine 60 mg daily, Lamictal 100 mg b.i.d., Abilify 10 mg daily Assessment & Plan (07/14/2024 8:58 PM SECURITY LEAD): Mood has significantly improved. Patient has been participating but has not yet made much progress in therapy. Continue duloxetine, Lamictal, Abilify Assessment & Plan (07/03/2024 12:47 PM SECURITY LEAD): Pt reported some hallucinations yesterday - has a history of these with psych meds. Mental status now back to baseline. Continue duloxetine, Lamictal, Abilify Assessment & Plan (07/01/2024 1:34 PM SECURITY LEAD): Mood stable, pt participating. Continue Abilify, lamictal, duloxetine. Assessment & Plan (06/10/2024 3:09 PM CDT): Continue duloxetine 60 mg daily, continue Lamictal 100 mg p.o. b.i.d. we will also continue Abilify 10 mg daily. Since this is a chronic prescription ([facility] indicates that she has been prescribed this [...] parkinsonism Assessment & Plan (09/18/2023 5:49 PM SECURITY LEAD): Chronic. Stable. Follows with Psychiatry. Denies any [...] her BKA site. 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 She has a chronic wound on the upper morrison for which she is working with the wound care center. 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 Previously intolerant to CPAP. Encouraged weight loss Assessment & Plan (09/10/2022 10:07 AM SECURITY LEAD): Using home CPAP. Constipation 09/03/2022 Assessment & [...] management Assessment & Plan (08/06/2024 8:57 PM SECURITY LEAD): - Associated with immobility and chronic foods - Lactulose, MiraLax p.r.n. - Notify office if further concerns Assessment & Plan (07/14/2024 8:57 PM SECURITY LEAD): Patient continues to struggle with constipation likely due to immobility and narcotic use. No longer is uncomfortable and is having small bowel movements. Continue current aggressive bowel regimen including bisacodyl 10 mg daily, lactulose 10 g b.i.d., MiraLax b.i.d., p.r.n. milk of magnesia Assessment & Plan (07/03/2024 12:44 PM SECURITY LEAD): Abd xray demonstrates large fecal burden in [...] p.m.. Assessment & Plan (07/01/2024 1:49 PM SECURITY LEAD): Pt continues to report that she is constipated despite additional medications - miralax x 7, mag citrate. Pt denies abd pain, no vomiting. Pt sits up only a hour or so per day, non ambulatory. Will check abd xray, will add lactulose 10g bid. Continue bisacodyl 10mg daily, pericolace 2 cap BID, miralax bid. Assessment & Plan (06/27/2024 2:57 PM SECURITY LEAD): Bonnie and her mother report no substantial [...] continue use a wheelchair she has handicap [place] Assessment & Plan (10/28/2024 2:12 AM CDT): Patient is still wheelchair dependent. She is unable to use a prosthesis on her left lower extremity due to chronic wound. She will continue use a wheelchair Completed paperwork for handicap uyen on this visit Assessment & Plan (09/18/2023 5:50 PM SECURITY LEAD): Patient is still wheelchair dependent. She is [...] Cardiology Assessment & Plan (08/06/2024 8:35 PM SECURITY LEAD): - chronic, stable at goal of < 140/90 - continue amlodipine 10 mg daily, losartan 100 mg daily, metoprolol 50 mg daily, hydralazine 50 mg TID - Monitor BP 1-2x daily, report readings > 140/90 or < 100/60 Assessment & Plan (07/14/2024 8:54 PM SECURITY LEAD): Blood pressure controlled, continue losartan, Norvasc, metoprolol. Chlorthalidone has been discontinued Assessment & Plan (07/08/2024 1:17 PM SECURITY LEAD): BP stable, continue metoprolol, norvasc, losartan. Chlorthalidone on hold Assessment & Plan (07/03/2024 12:41 PM SECURITY LEAD): Blood pressure well controlled, continue losartan 100 mg daily, Norvasc 10 mg daily, metoprolol 50 mg b.i.d. Chlorthalidone on hold Assessment & Plan (06/27/2024 2:58 PM SECURITY LEAD): Continue current scripting of hydralazine, losartan, metoprolol [...] prescribed. Assessment & Plan (09/18/2023 5:50 PM SECURITY LEAD): Chronic. HTN controlled. Cont prescription Rx. Low sodium diet (DASH or Mediterranean), exercise, wt loss (if over weight) discussed Assessment & Plan (06/28/2023 12:13 PM SECURITY LEAD): This is a chronic condition which is at goal of less than 140/90 Personally reviewed labs. Continue chlorthalidone, amlodipine, losartan Encouraged to monitor weight and B/P at home Encouraged to take medications as prescribed. Assessment & Plan (06/14/2023 6:45 PM CDT): Chronic. Controlled. Continue current prescription medications Assessment & Plan (09/10/2022 10:13 AM SECURITY LEAD): Patient with a history of elevated blood [...] 08/27/2024 Assessment & Plan (08/06/2024 7:23 AM SECURITY LEAD): - chronic, poorly controlled but improved from prior, most recent HgA1c 10.2 (04/18/24) - continue Soliqua 100/33- 45 units subQ bid, lispro 20 units tid before meals, farxiga 10 mg daily - eGFR 39 - recommend yearly dilated eye exams - recommend routine diabetic foot care per podiatry Assessment & Plan (07/14/2024 8:55 PM SECURITY LEAD): A1c 10.2, Accu-Cheks generally controlled, ranging from 123 to 246, continue Lantus 45 units b.i.d., lispro 20 units t.i.d. a.c., Victoza, Farxiga. We will discontinue sliding scale insulin upon discharge Assessment & Plan (07/08/2024 1:22 PM SECURITY LEAD): A1c 10.2, BS 107-247. Continue lantus 45 units BID, lispro 20 units TIDAC, SSI, vitcoza, farxiga Assessment & Plan (06/25/2024 1:55 PM SECURITY LEAD): A1c 10.2, BS 110-211, we will continue [...] units t.i.d. a.c. with sliding scale insulin, Eriberto Crtoza. Continue to monitor Assessment & Plan (06/10/2024 2:51 PM CDT): Continue gabapentin 200 mg p.o. b.i.d.. Continue [place] as scripted Assessment & Plan (04/26/2024 3:37 [...] assistance. Assessment & Plan (09/18/2023 5:49 PM SECURITY LEAD): Chronic. Poorly controlled. Working with Endocrinology. Encouraged patient to really work on diabetic diet. Encouraged to work on exercise as able. We offered a referral for religious educator and dietitian but patient deferred Assessment & Plan (06/28/2023 12:13 PM SECURITY LEAD): This is a chronic condition which is out of control, worsening not at goal of less than 7%. Personally reviewed most recent A1c - Lab Results Component Value Date HGBA1C 12.1 06/28/2023 Personally reviewed POC blood sugar- not at goal 80-180 Lab Results Component Value Date POCGLU 442 06/28/2023 Medication- continue xultophy 50 units daily. (Received from Patient assistance from [employer] program) continue Humalog U200 60 units 3 [...] units daily. (Received from Patient assistance from [employer] program) continue Humalog U200 36 units 3 [...] a surplus of the Xultophy from the [employer] patient assistance. Will start Humalog U 200 [...] atorvastatin. Assessment & Plan (09/10/2022 10:13 AM SECURITY LEAD): Home regimen includes Lantus 62 units every [...] forms provided and filled out for the [employer] program- she is receiving Tresiba U200 already. [...] No history of macrovascular disease - CVA, AR. Assessment & Plan (11/02/2021 4:44 PM CDT): [...] 1000mg bid- patient is receiving Tresiba from [employer] program- will change to Xultophy to cover [...] No history of macrovascular disease - CVA, AR. Assessment & Plan (06/25/2021 4:09 PM CDT): [...] Tresiba provided to patient today. Applied for [employer] patient assistance. Monitor blood sugar 3 times [...] No history of macrovascular disease - CVA, AR. Assessment & Plan (03/01/2021 6:06 PM CDT): [...] No history of macrovascular disease - CVA, AR. Assessment & Plan (12/07/2020 12:48 PM CDT): [...] No history of macrovascular disease - CVA, AR. Referred for nutritional counseling. Assessment & Plan (10/23/2020 12:27 PM SECURITY LEAD): This is a chronic condition which is [...] No history of macrovascular disease - CVA, AR. Referred for nutritional counseling. Encouraged to take [...] 04/18/2024 Assessment & Plan (08/06/2024 8:38 PM SECURITY LEAD): - chronic, LDL at goal of < [...] prescribed. Assessment & Plan (09/18/2023 5:51 PM SECURITY LEAD): Chronic. Tolerates rx. Atorvastatin now 80 mg daily. continue Assessment & Plan (06/28/2023 12:14 PM SECURITY LEAD): This is a chronic condition which is [...] 10/28/2024 Assessment & Plan (06/27/2024 2:58 PM SECURITY LEAD): The midnight nurse notes urine with a strange odor. Appearance cloudy. I have asked the nurses to obtain a urine specimen and send for UA with reflex culture. The patient and her mother deny any symptoms of acute cystitis Urinary retention 06/25/2024 09/12/2024 Assessment & Plan (08/06/2024 8:45 PM SECURITY LEAD): - chronic, indwelling catheter; continue tamsulosin 0.4 mg nightly - Follow-up with urology Assessment & Plan (07/15/2024 2:08 PM SECURITY LEAD): Now resolved, continue Flomax 0.4 mg nightly Assessment & Plan (07/01/2024 1:52 PM SECURITY LEAD): Pt has been voiding more often, but still needing occasional straight cath. Will increase flomax 0.8mg nightly Assessment & Plan (06/25/2024 1:58 PM SECURITY LEAD): Patient reports that [place] catheter is leaking, we will remove catheter, attempt voiding trial. Straight cath p.r.n. Chronic renal failure, stage 3b 06/14/2024 10/28/2024 Assessment & Plan (07/14/2024 8:58 PM SECURITY LEAD): Renal function had elevated but has since been stable after discontinuing chlorthalidone. GFR of 39-47. Continue to monitor Assessment & Plan (07/01/2024 1:31 PM SECURITY LEAD): Renal function stable, Bun/Cr 57/1.40, GFR 41. Chlorthalidone will remain on hold. F/u labs 07/03 Assessment & Plan (06/25/2024 1:56 PM SECURITY LEAD): Renal function slightly worsened, BUN/creatinine 51/1.52 with [...] physical and occupational therapy. I have ordered [place] 5 over 3-5 every 6 hours p.r.n. [...] daily. (Received from Patient assistance from [employer] program). change Humalog U200 to Fiasp 60 units 3 times a day prior to meals. Monitor blood sugar continuously with cgm. Monofilament foot exam completed. Loss of protective senses Treated with Gabapentin Personally reviewed CMP eGFR- 55 Kidney function- abnormal Urine microalbumin/creatinine ratio - abnormal. Goal is <30 Continue amlodipine, chlorthalidone, losartan, metoprolol Assessment & Plan (09/18/2023 5:55 PM SECURITY LEAD): Chronic. Very poorly controlled on last A1c. Continue work with endocrinology. Really needs to work on diabetic diet and lifestyle. Patient declined referral for religious educator today Peripheral angiopathy due to DM 07/18/2023 10/28/2024 Assessment & Plan (01/24/2024 7:10 PM CDT): Continue atorvastatin and ezetimibe. Continue working on trying to keep cholesterol controlled. Continue risk factor modification with Clopidogrel as well as low- dose Xarelto. Has had prior vascular interventions. Prior left leg BKA due to diabetic complication Assessment & Plan (09/18/2023 5:52 PM SECURITY LEAD): Chronic. Continue risk factor modification. Works with [...] 10/28/2024 Assessment & Plan (07/14/2024 8:53 PM SECURITY LEAD): Currently at baseline, continue aspirin, atorvastatin, Zetia, blood pressure control. Assessment & Plan (06/10/2024 2:49 PM CDT): Wound care to follow. Continue aspirin and atorvastatin Assessment & Plan (01/24/2024 7:12 PM CDT): Chronic. Continue risk factor modification with low-dose Xarelto as well as high-intensity atorvastatin Assessment & Plan (09/18/2023 5:50 PM SECURITY LEAD): Patient has a significant amount of peripheral arterial disease. She has had prior interventions on both lower extremities with Interventional Cardiology. Continue risk factor modification Assessment & Plan (06/14/2023 6:43 PM CDT): Bilateral lower extremities. Prior intervention on the left lower extremity. Recent right lower extremity intervention failed. Sees [facility]. Continue low-dose Xarelto and cholesterol medications. LDL goal less than 70 Obesity 12/12/2022 08/06/2024 Assessment & Plan (06/10/2024 2:51 PM CDT): Dietary to follow Assessment & Plan (04/26/2024 3:42 PM CDT): Obesity needs improvement. Unable to get accurate weight today due to patient's wheelchair status. Encouraged healthy diet, exercise and weight loss. Assessment & Plan (09/18/2023 5:51 PM SECURITY LEAD): Chronic. Suboptimally controlled. Encouraged healthy diet and lifestyle. Encouraged weight loss Assessment & Plan (06/14/2023 6:46 PM CDT): Chronic. Suboptimally controlled. Encouraged healthy diet, exercise as able as well as weight loss Asymptomatic COVID-19 virus infection 09/09/2022 12/12/2022 Assessment & Plan (09/10/2022 10:09 AM SECURITY LEAD): Patient is asymptomatic. No treatment necessary at this time. Isolation precautions put in place. 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 Plan: - continue aspirin 81 mg daily and Xarelto 2.5 mg b.i.d. Gangrene 06/28/2022 06/14/2023 Overview (07/12/2022): Added automatically from request for surgery [id number] Dyslipidemia 07/06/2019 09/12/2024 Assessment & Plan (06/25/2021 [...] Encounters Date Type Department Care Team Description 04/09/2025 10:00 AM CDT Orders Only [facility] [id number] [place] [address] 03/27/2025 Results Follow-Up [facility] Primary Care at [address] [phone] Burton Akhtar MD Urinalysis reflex to microscopic and culture Urine, clean voided, Urinalysis, microscopic only, Urine culture Urine, clean voided 03/26/2025 Telephone [facility] Medical [facility] Primary Care at [address] [phone] Burton Akhtar MD Medical Question/Miscellaneou s 03/26/2025 ACO Outreach [address] [address] Lula Lafleur RN 03/25/2025 10:40 AM CDT Lab [address] [address] Cystitis 03/19/2025 2:45 PM CDT Telemedicine [facility] Primary Care at [address] [phone] Burton Akhtar MD Cystitis (Primary Dx) 03/19/2025 10:00 AM CDT Orders Only [address] [address] 03/17/2025 Telephone [facility] Medical [facility] Primary Care at [address] [phone] Burton Akhtar MD Symptom Based Call 03/17/2025 Orders Only [facility] Primary Care at [address] [phone] Burton Akhtar MD Left hand pain 03/12/2025 10:00 AM CDT Orders Only [address] [address] 03/09/2025 Results Follow-Up [facility] Medical [facility] Primary Care at [address] [phone] uBrton Akhtar MD Thyroid Function [place], Hemoglobin A1c, Lipid panel, Additional followed-up results: 4 03/07/2025 12:30 PM CDT Lab [facility] Medical [facility] Outpatient Lab at [address] [phone] 03/07/2025 12:21 PM CDT - 03/07/2025 11:59 PM CDT Hospital Encounter [address] [address] Type 2 diabetes mellitus with diabetic polyneuropathy, with long-term current use of insulin (HCC) Discharge Disposition: Discharge to home or self care 03/05/2025 10:00 AM CDT Orders Only [facility] [address] [place] [address] 03/05/2025 Telephone [facility] [id number] [place] [address] [address] [phone] Lynne Astorga MD 03/03/2025 11:42 AM CDT - 03/03/2025 11:59 PM CDT Hospital Encounter [address] [address] Type 2 diabetes mellitus with diabetic polyneuropathy, with long-term current use of insulin (HCC); Mixed diabetic hyperlipidemia associated with type 2 diabetes mellitus (HCC); Hypertension associated with type 2 diabetes mellitus (HCC) Discharge Disposition: Discharge to home or self care 03/03/2025 11:42 AM CDT - 03/03/2025 11:59 PM CDT Hospital Encounter [address] [address] Type 2 diabetes mellitus with diabetic polyneuropathy, with long-term current use of insulin (HCC); Stage 3a chronic kidney disease (HCC); Hypertension associated with diabetes (HCC) Discharge Disposition: Discharge to home or self care 03/03/2025 11:30 AM CDT Lab [facility] Outpatient Lab at [address] [phone] 03/03/2025 11:30 AM CDT Office Visit [facility] Diabetes and Endocrinology [address] [place] [phone] Lynne Astorga MD Type 2 diabetes mellitus with diabetic polyneuropathy, with long-term current use of insulin (HCC) (Primary Dx); Stage 3a chronic kidney disease (HCC); Hyperlipidemia associated with type 2 diabetes mellitus (HCC); Hypertension associated with diabetes (HCC); Class 2 severe obesity due to excess calories with serious comorbidity and body mass index (BMI) of 37.0 to 37.9 in adult ([facility]); S/P BKA (below knee amputation), left ([facility]) 03/03/2025 Telephone [facility] [phone] [place] [address] [phone] Lynne Astorga MD 02/26/2025 10:00 AM CDT Orders Only [facility] [address] [place] [address] 02/24/2025 Telephone [facility] Diabetes Endocrine Care at [address] [phone] Rola Mae, JETT 02/17/2025 Telephone [facility] Diabetes Endocrine Care at [address] [phone] Rola Mae, GARLAND MACHINE OPERATOR 02/12/2025 10:00 AM CDT Orders Only [facility] [address] [place] [address] 02/05/2025 10:00 AM CDT Orders Only [address] [address] 01/22/2025 Telephone [facility] Primary Care at [address] [phone] Burton Akhtar MD Medical Question/Miscellaneou s 01/15/2025 10:00 AM CDT Orders Only 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, with necrosis of bone (HCC) 08/31/2022 Gangrene ([facility]) 06/28/2022 Added automatica lly from request for surgery [id number] Peripheral arterial disease PONV (postoperative nausea a nd vomiting) Motion sickness Depression Alcohol abuse Arthritis Osteoporosis Meningitis Chronic kidney disease Neuromuscular disorder Mixed conductive and sensori neural hearing loss Infection PVD (peripheral vascular disease) Cataracts, bilateral Family History Medical History Relation Name Comments Alcohol abuse Father Juliocesar Yo Arthritis Father Juliocesar Yo Depression Father Juliocesar Yo Early Father Juliocesar Sanaz Hearing loss Father Juliocesar Sanaz Heart attack Father Juliocesar Sanaz Heart disease Father Juliocesar ey Hypertension Father Juliocesar Missey Learning disabilities Father Juliocesar Sanaz Mental illness Father Juliocesar Sanaz Obesity Father Juliocesar Sanaz Obesity Maternal Grandfather Bud Darby Obesity Maternal [...] materials from doctor or pharmacy Never 05/02/2023 [facility] Utilities Answer Date Recorded In the past 12 months has [employer], gas, oil, or water [address] threatened to shut off services in your home? No 08/23/2024 Social Connection and Isolation Panel Answer Date Recorded In a typical week, how many times do you talk on the phone with family, friends, or neighbors? Twice a week 08/23/2024 How often do you get together with friends or re latives? Once a week 08/23/2024 How often do you attend mosque or catholic serv ices? Never 08/23/2024 Do you belong to any clubs o r organizations such as mosque groups, unions, fraternal or athletic groups, or [...] points, staff should administer the PHQ-9) 0 03/19/2025 Hunger Vital Sign Answer Date Recorded Within [...] place to sleep or slept in a halfway (including now)? No 07/01/2022 PHQ-9 Answer Date [...] any time in the past 12 m [facility], were you homeless or living in a halfway (including now)? No 08/23/2024 Personal Safety Answer [...] on file Legal Sex Female 10:33 AM SECURITY LEAD Gender Identity Female 11/26/2022 1:44 AM CDT [...] (294 lb 1.5 oz) 08/23/2024 2:59 PM SECURITY LEAD Height 188 cm (6' 2) 03/03/2025 10:57 AM CDT Body Mass Index 37.76 08/23/2024 2:59 PM SECURITY LEAD Plan of Treatment Health Maintenance Due Date [...] 09/03/2025 03/03/2025, 02/18, 08/24/2024, Additional history exists Dilated Eye Exam 01/14/2026 01/14/2025, 09/2023, 07/15/2019 Lipid Panel 03/03/2026 03/03/2025, 03/22, 03/29/2023, Additional history exists eGFR 03/03/2026 03/03/2025, 02/18, 08/27/2024, Additional history exists Albumin Creatinine Ratio, Urine 03/07/2026 03/07/2025, 04/29/2024, 07/16/2022, Additional history exists Depression Screening 03/19/2026 03/19/2025, 03/18/2025, 01/10/2025, Additional history exists Fall Risk Assessment 03/19/2026 03/19/2025, 03/18/2025, 01/10/2025, Additional history exists Colon Cancer Screening-Colonoscopy 09/07/2026 09/07/2021 DTaP/Tdap/Td Vaccine (2 - Td or [...] or provider. Medical Devices Implanted Type Area Coil Finisher Device Identifier Shelf Expiration Date Model / Serial / Lot [employer] Everflex Entrust 7mm 150mm 120cm Self Expand Delivery System Low - [id number] - [id number] Implanted:Qty: 1 on 06/29/2022 by Tha Arzate MD at [facility] Stent Left: Superficial Femoral Artery [employer] 10/09/2023 [id number] 150-120 / 0 / [id number] [employer] Everflex Entrust 7mm 150mm 120cm Self Expand Delivery System Low - [id number] - [id number] Implanted:Qty: 1 on 07/06/2022 by Tha Arzate MD at [facility] Stent Left: Superficial Femoral Artery [employer] 03/22/2025 [id number] 150-120 / [id number] / [id number] [employer] Stent Peripheral Biliary Over The Wire Protege Everflex [id number] Nitinol [id number] 20 - [id number] Implanted:Qty: 1 on 07/18/2023 by Tha Arzate MD at [facility] [employer] 03/12/2024 [id number] 200-120 / / [id number] Procedures Procedure Name Priority Date/Time Associated Diagnosis Comments URINALYSIS, MICROSCOPIC ONLY Routine 03/25/2025 10:40 AM CDT Cystitis URINE CULTURE Routine 03/25/2025 10:40 AM CDT URINALYSIS AND REFLEX TO MICROSCOPIC AND CULTURE Routine 03/25/2025 10:40 AM CDT Cystitis XR HAND LEFT 3 OR MORE VIEWS Schedule Routine, Read Routine (OP Routine) 03/13/2025 Left hand pain ALBUMIN CREATININE RATIO, URINE Routine 03/07/2025 12:21 [...] insulin (HCC) DIABETES EYE EXAM Routine 01/14/2025 HEPATITIS PANEL, ACUTE Routine 07/17/2022 6:03 AM SECURITY LEAD COLONOSCOPY Routine 09/07/2021 from Last 3 Months or Most Recently Relevant to Health Maintenance Results * (ABNORMAL) Urinalysis reflex to microscopic and culture Urine, clean voided (03/25/2025 10:40 AM CDT) Color, ur Yellow Yellow Clarity, ur Cloudy(A) Clear MIKE KONG Specific gravity, ur 1.013 1.003 - 1.030 MIKE pH, urine 5.5 MIKE KONG Comment: Interpretive Data U rine pH is affected by diet, medications, systemic acid-base disturbances, and renal tubular function. pH may affect urinary stone formation. For example, urine pH below 6.0 may help reduce the tendency for calcium phosphate stones and pH greater than 6.0 may reduce the tendency for uric acid stone formation. Source: [facility] Current Interpretive Data was last revised on 2017 Protein, ur ql 1+(A) Negative [facility] Glucose, ur ql 4+(A) Negative [facility] Ketones, ur Negative Negative [facility] Bilirubin, ur Negative Negative [facility] Blood, ur Negative Negative [facility] Urobilinogen, ur <2.0 <2.0 mg/dL [facility] Nitrite, ur Positive(A) Negative [facility] Leukocyte esterase, ur 4+(A) Negative [facility] UA reflex comment Reflex to microscopic UA will be performed. [facility] Urine, clean voided 03/25/2025 10:40 AM CDT 03/25/2025 1:58 PM CDT Burton Akhtar MD LAB MICROBIOLOGY - GENE RAL ORDERABLES Final Result Performing Organization Address [facility] de Phone Number MIKE [address] [employer] [place] [place] [address] * (ABNORMAL) Urinalysis, microscopic only (03/25/2025 10:40 AM CDT) WBC, ur >50(A) 0 - 5 /HPF RBC, ur 0-2 0 - 2 /HPF [facility] Bacteria, ur 2+(A) [facility] Mucous, ur Present(A) [facility] Culture Reflex Comment Reflex to urine culture will be performed. [facility] Urine, clean voided 03/25/2025 10:40 AM CDT 03/25/2025 1:58 PM CDT Burton Akhtar MD LAB URINE ORDERABLES Fi nal Result Performing Organization Address [facility] de Phone Number MIKE [address] Department [place] [address] * (ABNORMAL) Urine culture Urine, clean voided (03/25/2025 10:40 AM CDT) Report Final Report: Greater than or equal to 100,000 colonies/mL of Escherichia coli Plus growth of clinically insignificant bacterial laith. (.) Comment:Testing performed by : [facility], [address] [place]., [address] Organism ESCHERICHIA COLI MIKE Organism PLUS GROWTH OF CLINICALLY INSIGNIFICANT LAITH. MIKE Urine, clean voided 03/25/2025 10:40 AM CDT 03/25/2025 6:13 PM CDT Narrative [facility] - 03/27/2025 11:17 PM CDT Urine culture reflexed based upon urinalysis results. Testing performed by [facility] Microbiology Laboratory ([phone]) Organism Antibiotic Method Susceptibility Escherichia coli Ampicillin INTERPRETATION Susceptible Escherichia coli Cefazolin INTERPRETATION Susceptible Escherichia coli Nitrofurantoin INTERPRETATION Susceptible Escherichia coli Gentamicin INTERPRETATION Susceptible Escherichia coli Trimethoprim with Sulfamethoxazole IN TERPRETATION Susceptible Escherichia coli Meropenem INTERPRETATION Susceptible Escherichia coli Cefepime INTERPRETATION Susceptible Escherichia coli Ciprofloxacin INTERPRETATION Susceptible Escherichia coli Ceftazidime INTERPRETATION Susceptible Escherichia coli Ceftriaxone INTERPRETATION Susceptible Escherichia coli Piperacillin/Tazobactam INTERPRETATIO N Susceptible Escherichia coli Cephalexin INTERPRETATION Susceptible Escherichia coli Cefuroxime-axetil INTERPRETATION Susceptible Escherichia coli Cefdinir INTERPRETATION Susceptible Burton Akhtar MD LAB MICROBIOLOGY - [facility] ORDERABLES Final Result MIKE [address] [facility] Department [place] [address] * XR Hand Left 3+ Vw (03/13/2025) Anatomical Region Laterality Modality Upper Extremities, Hand Left Radiogra phic Imaging Burton Akhtar MD IMG XR PROCEDURES Final Result * (ABNORMAL) Albumin Creatinine Ratio, Urine (03/07/2025 12:21 PM CDT) Albumin Ur 149.3 mg/L Comment: Interpretive Data No reference range established. Current interpretive data was last revised 2019. Creatinine Ur 42.7 mg/dL CERJERRY BLAND Comment: Interpretive Data No reference range established. Current interpretive data was last revised 2019. Albumin Creatinine Ratio, Ur 350(H) 1 - 29 mg/g MIKE BLAND Urine 03/07/2025 12:2 1 PM CDT 03/07/2025 7:58 PM CDT us Lynne Hutchison MD LAB URINE ORDERABLE S Final Result Performing Organization Address City/[facility]/ZIP Co de Phone Number MIKE BALDO [address] [place] [address] * eGFR (03/03/2025 11:42 AM CDT) eGFR [...] of Race in Diagnosing Kidney Disease, JASN 202). The CKD-EPI equation should not be used for patients with unstable renal function and has not been validated in children and those over 70. Current interpretive data was last reviewed 2021. Blood 03/03/2025 11:4 2 AM CDT 03/03/2025 8:14 PM CDT Lynne Hutchison MD LAB BLOOD ORDERABLE S Final Result Performing Organization Address City/[facility]/ZIP Co de Phone Number LAMINEJERRY BLAND [address] [place] [address] * eGFR (03/03/2025 11:42 AM CDT) eGFR [...] of Race in Diagnosing Kidney Disease, JASN 2020). The CKD-EPI equation should not be used for patients with unstable renal function and has not been validated in children and those over 70. Current interpretive data was last reviewed 2021. Blood 03/03/2025 11:4 2 AM CDT 03/03/2025 8:14 PM CDT us Burton Akhtar MD LAB BLOOD ORDERABLES nal Result MIKE [address] Department [place] [address] * Differential, auto (03/03/2025 11:42 AM CDT) Pathologist [facility] Neutrophil abs 5.61 1.50 - 6.50 K/cumm Imm gran abs 0.01 0.00 - 0.10 K/cumm [facility] Lymphocyte abs 1.28 0.80 - 3.30 K/cumm [facility] Monocyte abs 0.57 0.20 - 0.80 K/cumm [facility] Eosinophil abs 0.23 0.00 - 0.50 K/cumm [facility] Basophil abs 0.05 0.00 - 0.10 K/cumm [facility] Neutrophil pct 72.4 % [facility] Comment: Interpretive Data Percent cell count reference ranges are not reported, since discordance with absolute values may lead to misinterpretation of CBC data. Current Interpretive Data was last revised on 2017. Imm gran pct 0.1 % CERNER Comment: Interpretive Data Percent cell [...] revised on 2017. Basophil pct 0.6 % [facility] Comment: Interpretive Data Percent cell count reference ranges are not reported, since discordance with absolute values may lead to misinterpretation of CBC data. Current Interpretive Data was last revised on 2017. Blood 03/03/2025 11:4 2 AM CDT 03/03/2025 8:13 PM CDT Burton Akhtar MD LAB BLOOD ORDERABLES Fi nal Result Performing Organization Address [facility] Co de Phone Number MIKE BLAND [address] Department [place] [employer] [place] [address] * Thyroid Function [place] (03/03/2025 11:42 AM CDT) TSH 1.54 0.30 - 4.20 mcIUnit/mL Blood 03/03/2025 11:4 2 AM CDT 03/03/2025 8:13 PM CDT Burton Akhtar MD LAB BLOOD ORDERABLES Fi nal Result Performing Organization Address City/[facility]/ZIP Co de Phone Number MIKE BLAND [address] Department [place] [address] * (ABNORMAL) CBC with auto differential (03/03/2025 11:42 AM CDT) [facility] WBC 7.75 3.80 - 9.90 K/cumm Hgb 11.4(L) 11.9 - 15.5 g/dL [facility] Hct 38.6 35.6 - 45.5 % [facility] Plt 135(L) 150 - 400 K/cumm [facility] MPV 11.6 9.1 - 12.3 fL [facility] RBC 4.07 3.90 - 5.20 M/cumm [facility] MCV 94.8 81.3 - 96.4 fL [facility] MCH 28.0 27.1 - 33.3 pg [facility] MCHC 29.5(L) 32.3 - 35.7 g/dL [facility] RDW CV 16.0(H) 11.1 - 14.9 % [facility] RDW SD 56.1(H) 35.7 - 48.1 fL [facility] NRBC abs 0.00 0.00 - 0.01 K/cumm [facility] Blood 03/03/2025 11:4 2 AM CDT 03/03/2025 8:13 PM CDT Burotn Akhtar MD LAB BLOOD ORDERABLES nal Result MIKE BLAND [address] [facility] [place] [place] [address] * (ABNORMAL) Hemoglobin A1c (03/03/2025 11:42 AM CDT) [facility] Hgb A1C 6.7(H) 4.0 - 5.6 % Estimated Average Glucose 146 mg/dL [facility] Comment: The ADA recommends reporting an estimated Average Glucose (eAG) with all Hemoglobin A1c results using the equation derived from a study of 507 normal and diabetic adults. Minority populations were underrepresented and children were not included. (Diabetes Care 31:2552-9794, 2008). The eAG is not equivalent to a fasting glucose. Blood 03/03/2025 11:4 2 AM CDT 03/03/2025 8:13 PM CDT us Burton Akhtar MD LAB BLOOD ORDERABLES Fi nal Result MIKE [address] Department [place] [address] * (ABNORMAL) Lipid panel (03/03/2025 11:42 AM [...] on 2018. HDL 44 >=40 mg/dL MIKE BLAND Comment: Interpretive Data Ages [...] 2018. LDL, calculated 55 <=129 mg/dL MIKE BLAND Comment: Interpretive Data Ages [...] NCEP Expert Panel. Circulation 2004;110:227 3. Jacoby Ennis et al. NANDA Cardiol. 2020 December 19;5(5):540-548. doi: 10.1001/jamacardio.2020.0013 Current Interpretive Data was last revised on 2024. Non-HDL Cholesterol 94 mg/dL MIKE BLAND Comment: Interpretive Data Ages [...] last revised on 2018. Chol/HDL ratio 3 MIKE BLAND Blood 03/03/2025 11:4 2 AM CDT 03/03/2025 8:13 PM CDT Narrative MIKE - 03/03/2025 8:37 PM CDT Has the patient been fasting for 8 hours or more?->No Burton Akhtar MD LAB BLOOD ORDERABLES Fi nal Result Performing Organization Address City/State/[facility] Co de Phone Number CERNER [address] Department [place] [address] * (ABNORMAL) Comprehensive metabolic panel [...] MD LAB BLOOD ORDERABLES Fi nal Result MIKE BLAND [address] [place] [address] * (ABNORMAL) Comprehensive metabolic panel (03/03/2025 11:42 [...] classification and Diagnosis of Diabetes Diabetes Care 202; 46: S19-S40. Current interpretive data was last [...] AM CDT 03/03/2025 8:13 PM CDT us Lynne Hutchison MD LAB BLOOD ORDERABLE S Final Result Performing Organization Address City/[facility]/ZIP Co de Phone Number MIKE BLAND [address] Department [place] [address] * (ABNORMAL) POCT hemoglobin A1c (03/03/2025 11:02 AM CDT) Pathologist [facility] Hemoglobin A1C, POC 6.6(A) 4.0 - 5.6 % Blood 03/03/2025 11:0 2 AM CDT Lynne Hutchison MD POINT OF CARE TEST ORDERABLES Final Result * POCT glucose (03/03/2025 10:59 AM CDT) Pathologist [facility] Glucose Blood, POC 247 Normal Fasting 70 - 100, Random <200 mg/dL Blood 03/03/2025 10:5 9 AM CDT Lynne Hutchison MD POINT OF CARE TEST ORDERABLES Final Result * (ABNORMAL) DIABETES EYE EXAM (01/14/2025) Historical Provider HEALTH MAINTENANCE Final Result * Hepatitis panel, acute (07/17/2022 6:03 AM SECURITY LEAD) Pathologist [facility] Hep A IgM Nonreactive Nonreactive [facility] Comment: Interpretive Data: If Hep A IgM Ab is reported as Equivocal, a new sample should be drawn in two weeks for testing. Current interpretive data was last revised on 19. Hep B core IgM Nonreactive Nonreactive [facility] Comment: Interpretive Data If HepB Core IgM Ab is reported as Equivocal, a new sample should be drawn in two weeks for testing. Current interpretive data was last revised on 19. Hep C Ab Nonreactive Nonreactive [facility] Comment: Interpretive Data Nonreactive: Antibodies to [...] revised on 2019. HepBsAg Nonreactive Nonreactive MIKE [facility] Blood 07/17/2022 6:03 AM SECURITY LEAD 07/17/2022 6:37 AM SECURITY LEAD Brian Peng MD LAB MICROBIOLOGY - GENERAL DOMINGO CERVANTES Final Result MIKE [facility] [address] [place] [address] * HM COLONOSCOPY (09/07/2021) us Historical Provider HEALTH MAINTENANCE Final Result from Last 3 Months or Most Recently Relevant to Health Maintenance Additional Health Concerns Infection Onset Date Last Indicated CRE Comment:Contact Precautions (gown and gloves) JES De La Cruz 01/04/23 07/08/2022 07/13/2022 Insurance T MEDICARE GOLD AET MEDICARE GOLD [facility] MEDICARE ADVANTAGE [id number] Advance Directives For more information, please contact: [phone] Documents on File Type Date Recorded 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 ADVANCE DIRECTIVE 08/31/2022 10:35 PM [...] 12:54 PM 06/14/2023 1:42 PM Care Teams Spike Driver Relationship Specialty Start Date End Date Burton Akhtar MD [address] [facility] [address] [place] [address] PCP - General Family Medicine 01/28/25 José Verduzco DPM [address] [place] [address] Consulting Physician Foot and Ankle Surg 07/26/22 Anup Mayo MD [address] [facility] [address] [place] [address] Endocrinology Diabetes & Metabolism 07/26/22 Tha Arzate MD [address] [facility] [address] [place] [address] Consulting Physician Cardiovascular Disease 07/26/22 Salinas Hawkins MD [address] [facility] [address] [place] [address] Surgeon General Surgery 09/09/22 Lula Lafleur, JES [address] [place] [address] [address] [place] [address] Appraisal Analyst 07/19/24 Hu Bruno MD [address] [place] [address] [address] [place] [address] Consulting Physician Vascular Surgery 08/27/24 Darren Young CNM [address] [facility] [address] [place] [address] Nurse Practitioner Psychiatry 01/10/25
--- OUTSIDE RECORDS SUMMARY | 2025-04-14 19:56 | XMS_ITS | Clinical Summary ---
Author Organization [facility] Address [address] [place] [address] Care Team Providers Care Intern Retail Name Role Phone Stefan Frost MD Primary Care Provider [phone] Source Comments [facility],non-owned Affiliates and Associated Physician Practices is [facility] organization consisting of ambulatory clinics and hospital sitesin [place], [place], [place] and [place]. This disclosure is being madepursuant to the Care Everywhere program and may not contain all information available regarding this patient. Last updated 18.[facility] Allergies No known active allergies Medications * [...] on file Legal Sex Female 6:17 AM INTAKE COORDINATOR Gender Identity Not on file Sexual Orientation Not on file Last Filed Vital Signs Vital Sign Reading Time Taken Comments Blood Pressure 118/82 08/31/2012 10:14 AM INTAKE COORDINATOR Pulse - - Temperature - - Respiratory Rate - - Oxygen Saturation - - Inhaled Oxygen Concentration - - Weight 169.2 kg (373 lb) 08/31/2012 10:14 AM INTAKE COORDINATOR Height 188 cm (6' 2) 08/31/2012 10:14 AM INTAKE COORDINATOR Body Mass Index 47.89 08/31/2012 10:14 AM INTAKE COORDINATOR Plan of Treatment Health Maintenance Due Date [...] to Health Maintenance Insurance MEDICARE Care Teams Intern Retail Relationship Specialty Start Date End Date Stefan Frost MD PCP - General Internal Medicine 08/29/12
--- OUTSIDE RECORDS SUMMARY | 2025-04-14 19:56 | XMS_ITS ---
Author Name MARSHA MEDRANO MD Address [address] [place] [address] Phone [phone] Organization [facility] Care Team Providers Care Roof Plumber Name Role Phone MARSHA MEDRANO Unavailable [phone] Reason for Referral Not Available Allergies, adverse [...] orally 2 times per day 2025-03-01 2025-03-01 Arcadia 5 mg-325 mg tablet 1 tab q8 [...] N/A N/A Chronic constipation Active 2025-03-01 N/A 06/22 4 - likely due to immobility and [...] mplaint [facility] [place] 03/01/2025 Sepsis, unspecified organismEncntr for f/u exam aft trtmt for cond oth than malig neoplm [facility] 7 Day Disch [place] [place] 03/01/2025 Sepsis, unspecified organismEncntr for f/u exam aft trtmt for cond oth than malig neoplm [facility] 7 [facility] [place], 03/01/2025 Sepsis, unspecified organismEncntr for f/u exam aft trtmt for cond oth than malig neoplm [facility] [place] [place] 03/01/2025 Sepsis, unspecified organismEncntr for f/u exam aft trtmt for cond oth than malig neoplm [facility] 7 Day [facility] 03/01/2025 Sepsis, unspecified organismEncntr for f/u exam aft trtmt for cond oth than malig neoplm Vital Signs Date of Collection Vitals 2025-03-01 10:02:35 BP Diastolic - 70.0 mm[Hg]BP Systolic - 160.0 mm[Hg]Pain Scale - 5.0 {score} Social History Sex Female History of Procedures Procedures Service Procedure code Service date Servicing provider Phone# [facility] 7 Day Disch [id number] 2025-03-01 No Data Available No Data Avail [...] hip is managed with pain pill (takes Arcadia occasionally, used to be followed by pain management for chronic back pain), OTC pain patch, rest. She saw cardiology last week, they d/c'd metoprolol due to overnight hypotension. She is seeing a new learning and development associate on 03/03. She sees urology on 03/06. She continues to see wound care regularly. She sees PCP in April. Wears a CGM; states BG has been well controlled (did not provide readings). States BP was 160/70 when checked by psychometric examiner (after metoprolol was discontinued). Does not know heart rate. She would like rx for lidocaine patch and triple paste barrier cream. 2025-03-01 Type of Visit: IPAdm ission date: 02/14/2025Discharge date: 02/18/2025?Hospital: [facility] Description: Sepsis, unspecified organism 2025-03-01 Discharge summary un available
--- OUTSIDE RECORDS SUMMARY | 2025-04-14 19:56 | XMS_ITS | Encounter Summary ---
Author Organization [facility] Healthcare Address [address] [place] [address] Care Team Providers Care Helicopter Pilot Name Role Phone José Verduzco DPM Unavailable Anup Mayo MD Unavailable [phone] Tha Arzate MD Unavailable Salinas Hawkins MD Unavailable [phone] Yvonne Bowers MD Primary Care Provider Lula Lafleur RN Unavailable Montse AsencioW Unavailable [phone] Yasmin Reynolds NP Primary Care Provider [phone] Hu Bruno MD Unavailable [phone] No, Physician Primary Care Provider [phone] Burton Akhtar MD Primary Care Provider Elyse Young CNRaymon Unavailable [phone] Burton Akhtar MD Primary Care Provider Reason for Visit * Auth/Cert (Routine) Specialty Diagnoses / Procedures Referred By Contac t Referred To Contact Diagnoses Personal history of colonic polyps Encounter for screening colonoscopy Personal history of colonic polyps [Z86.010] Encounter for screening colonoscopy [Z12.11] Procedures SC COLONOSCOPY FLX DX W/COLLJ SPEC WHEN PFRMD COLONOSCOPY Referral ID Status Reason Start Date Expiration Date Visits Re quested Visits Authorized [id number] 1 1 Encounter Details Date Type Department Care Team (Late st Contact Info) Description 06/10/2024 Hospital Encounter [facility] [address] [place] [address] Rakesh Friend, [address] [place] [address] [place] [address] Social History Tobacco Use Types Packs/Day Years [...] materials from doctor or pharmacy Never 05/02/2023 [facility] Utilities Answer Date Recorded In the past [...] week 08/23/2024 How often do you attend nondenominational or mu-ism serv ices? Never 08/23/2024 Do you belong to any clubs o r organizations such as nondenominational groups, unions, fraternal or athletic groups, or [...] place to sleep or slept in a snf (including now)? No 07/01/2022 PHQ-9 Answer Date [...] any time in the past 12 m [facility], were you homeless or living in a snf (including now)? 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 Gender Identity Female 11/26/2022 1:44 AM CDT Sexual Orientation Straight 11/26/2022 1: 44 AM CDT documented as of this encounter Functional Status * AUDIT-C Score Answer Date of Assessment Author 1 [...] documented as of this encounter Care Teams Helicopter Pilot Relationship Specialty Start Date End Date Yvonne Bowers MD [facility] [facility] [address] [place] [address] PCP - General Family Practice 12/12/22 08/22/24 Yasmin Reynolds NP [address] [place] [address] L[place] Galvez [address] PCP - General Infectious Diseases 08/23/24 08/25/24 No, Physician PCP - General 09/09/24 09/11/24 Burton Akhtar MD PCP - General Family Medicine 09/12/24 01/27/25 Burton Akhtar MD [address] [facility] [address] [place] [address] PCP - General Family Medicine 01/28/25 José Verduzco DPM [address] [place] [address] Consulting Physician Foot and Ankle Surg 07/26/22 Anup Mayo MD [facility] [facility] [address] [place] [address] Endocrinology Diabetes & Metabolism 07/26/22 Tha Arzate MD [address] [facility] [address] [place] [address] Consulting Physician Cardiovascular Disease 07/26/22 Salinas Hawkins MD [facility] [facility] [address] [place] [address] Surgeon General Surgery 09/09/22 Lula Lafleur, JES [address] [facility] [address] [place] [address] Criminal Attorney 07/19/24 Montse Asencio, ASSISTANT REAL ESTATE MANAGER [address] [place] [address] Rose Grader 07/30/24 09/16/24 Hu Bruno MD [address] [facility] [address] [place] [address] Consulting Physician Vascular Surgery 08/27/24 Elyse Young CNM [address] [facility] [address] [place], [place] [address] Nurse Practitioner Psychiatry 01/10/25 documented as of this encounter
--- OUTSIDE RECORDS SUMMARY | 2025-04-14 19:56 | XMS_ITS | Patient Health Record ---
Author Organization [facility] Address [address] [place] [address] Care Team Providers Care Talk Show Host Name Role Phone Burton Akhtar MD Primary Care Provider Unavailable Penny Rivera Unavailable [phone] Elyse Young Unavailable [phone] Allergies Allergen (clinical drug ingredient) Drug/Non Drug Allergy documented on EMR Reaction Allergy Type Onset Date Status carbidopa / levodopa Carbidopa-Levodopa rash Drug Aller gy Active Latex Latex Unknown Allergy 10/12/2023 Active Reason For Referral No Information Medications Medication SIG (Take, Route, Frequency, Duration) Notes Start Date End Date Status lamoTRIgine 100 MG Tablet 1 tablet Oral twice a day; Duration: 90 days Active NovoLOG FlexPen 100 UNIT/ML Solution Pen-injector Subcutaneous; Duration: 33 Days Active DULoxetine HCl 60 MG Capsule Delayed Release Particles 1 capsule in the morning Oral Once a day; Duration: 90 days Active NovoLOG FlexPen 100 UNIT/ML Solution Pen-injector Subcutaneous; Duration: 33 Days Active Losartan Potassium 100 MG Tablet Oral; Duration: 30 Days Active Embecta Pen Needle Ultrafine 31G X 8 MM Miscellaneous ; Duration: 33 Days Active ARIPiprazole 5 MG Tablet 1 tablet Orally Once a day; Duration: 30 days decreasing dose 03/24/2025 Active Amantadine HCl 100 MG Capsule 1 capsule Orally Once a day; Duration: 30 days 03/24/2025 04/23/2025 Active hydrALAZINE HCl 50 MG Tablet Oral; Duration: 30 Days Active Farxiga 10 MG Tablet Oral; Duration: 30 Days Active Atorvastatin Calcium 80 MG Tablet Oral; Duration: 30 Days Active amLODIPine Besylate 10 MG Tablet Oral; Duration: 30 Days Active Immunizations Vaccine [...] History Observation Description Sex Assigned At Female Social History Tobacco Use: Social Info Question Answer Notes Tobacco Control (Standard) Tobacco use: Current some day smoker Additional Details Category Social Info Options Details Migrated Social History Migrated Social History Alcohol Intake: Occasional 12/23/2020,Tobacco Years: Current some days smoker 09/13/2023,Smoking Status: 44 09/13/2023 Problems Problem Type SNOMED Code ICD Code Onset Dates Problem Status W/U Status Risk Notes Problem Generalized anxiety disorder (57488061) Generalized anxiety disorder (F41.1) 4 Active confirmed Problem Insomnia disorder related to another mental disorder (74908200) Insomnia due to other mental disorder (F51.05) 4 Active confirmed Problem Obstructive sleep apnea syndrome (disorder) (10664090) Obstructive sleep apnea (adult) (pediatric) (G47.33) 4 Active confirmed Problem Bipolar I disorder (816063840) Bipolar I disorder (F31.9) Active confirmed Vital Signs Heart Rate 65 /min 03/24/2025 Height-cm 187.96 cm 03/24/2025 Blood pressure diastolic 74 mm Hg 03/24/2025 Weight-kg 141.07 kg 03/24/2025 Height 74.00 in 03/24/2025 Blood pressure systolic 130 mm Hg 03/24/2025 Weight 311.0 lbs 03/24/2025 BMI 39.93 kg/m2 03/24/2025 Encounters Encounter Location Date Provider Diagnosis [facility] MD [employer] [facility] [address] [address] 10/04/2024 Penny Rivera Bipolar I disorder F31.9 ; Generalized anxiety disorder F41.1 ; Insomnia due to other mental disorder F51.05 ; Obstructive sleep apnea (adult) (pediatric) G47.33 and Benign essential HTN I10 [facility] MD [employer] [facility] [address] [place] [address] 03/24/2025 Penny Rivera Bipolar I disorder F31.9 ; Generalized anxiety disorder F41.1 ; Insomnia due to other mental disorder F51.05 and Drug-induced dyskinesia G24.01 [facility] MD [employer] [facility] [address] [place] [address] 05/01/2024 Elyse Young [facility] MD [employer] [facility] [address] [place] [address] 10/10/2024 Penny Rivera Generalized anxiety disorder F41.1 and Bipolar I disorder F31.9 [facility] MD [employer] [place] [address] [place] [address] 03/27/2025 Penny Rivera Assessments Encounter Date Diagnosis (ICD Code) Assessment Notes Treatment Notes Treatment Clinical Notes Section Notes 03/24/2025 Bipolar I disorder (ICD-10 - F31.9) 10/10/2024 Generalized anxiety disorder (ICD-10 - F41.1) 10/04/2024 Generalized anxiety disorder (ICD-10 - F41.1) [...] to monitor progress and address concerns 10/04/2024 Bipolar I disorder (ICD-10 - F31.9) [...] months to monitor progress and address concerns 03/24/2025 Generalized anxiety disorder (ICD-10 - F41.1) 03/24/2025 Insomnia due to other mental disorder (ICD-10 - F51.05) 10/04/2024 Insomnia due to other mental disorder [...] to monitor progress and address concerns 10/10/2024 Bipolar I disorder (ICD-10 - F31.9) 03/24/2025 Drug-induced dyskinesia (ICD-10 - G24.01) 10/04/2024 Obstructive sleep apnea (adult) (pediatric) (ICD-10 [...] to monitor progress and address concerns 10/04/2024 Benign essential HTN (ICD-10 - I10) [...] months to monitor progress and address concerns 03/24/2025 Kareen Ingram, a patient with a history of cardiovascular issues and mood disorders, presents with hand tremors and sleep disturbances. Mood Disorder Assessment: Patient reports mood as on an even keel with no significant depressive symptoms or anxiety. Currently on lamotrigine 100 mg twice daily for mood stabilization and duloxetine 60 mg for depression, anxiety, and pain management. No suicidal ideation reported. Plan: - Continue lamotrigine 100 mg PO twice daily - Continue duloxetine 60 mg - Decrease aripiprazole to 5 mg - Follow up in 4 weeks - Plan to further decrease aripiprazole to 2 mg and then discontinue if tremors improve - Monitor for mood changes with medication adjustment Drug-Induced Tremor Assessment: Patient reports significant hand tremors, likely a side effect of aripiprazole 10 mg. The tremors are interfering with daily activities. Patient also mentions jaw shaking when nervous, which could be related to drug-induced dyskinesia. Tremor is rhythmic, recent development, has not seen a Neurologist. Plan: - Decrease aripiprazole to 5 mg - Start amantadine 100 mg capsule PO in the morning for drug-induced dyskinesia - Avoid introducing propranolol due to patient's heart rate issues - Monitor for improvement in tremors with medication adjustments Sleep Disturbance Assessment: Patient reports difficulty staying asleep, with frequent nighttime awakenings. Eventually able to fall back asleep after some time. Plan: - Continue current medications and monitor for improvement in sleep with adjustment of aripiprazole Cardiovascular Issues Assessment: Patient reports recent adjustment to heart medication due to nocturnal bradycardia, with heart rate dropping into the 30s. Currently on metoprolol (recently increased), hydralazine, amlodipine, and azilsartan for blood pressure management. Plan: - Continue current cardiovascular medications as prescribed by primary care or cardiology - Monitor for any cardiovascular symptoms or medication side effects Medical Decision Making Cassi Ingram is a patient with a history of cardiovascular issues and mood disorders presenting with hand tremors and sleep disturbances. The patient's report of hand tremors, potentially exacerbated by aripiprazole, necessitates medication adjustment. Given the patient's history of low heart rate (dropping into the 30s at night) and recent increase in heart medication, introducing propranolol for tremor management is contraindicated. Tremor is rhythmic, recent development, has not seen a Neurologist. Suggestive of a possible drug-induced dyskinesia. To address this, amantadine is being introduced. The decision to taper aripiprazole is based on the likelihood that it is contributing to the hand tremors, with a plan to reassess mood stability during the taper. 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
--- OUTSIDE RECORDS SUMMARY | 2025-04-14 19:56 | XMS_ITS | Encounter Summary ---
Author Organization [facility] Healthcare Address [address] [place] [address] Care Team Providers Care Hand Molder And Caster Name Role Phone José Verduzco DPM Unavailable Anup Mayo MD Unavailable Tha Arzate MD Unavailable Salinas Hawkins MD Unavailable [phone] Lula Lafleur RN Unavailable Hu Bruno MD Unavailable [phone] Elyse Young CNM Unavailable [phone] Burton Akhtar MD Primary Care Provider Reason for Visit * Reason Onset Date Comments Medical Question/Miscellaneous 03/09/2025 Encounter Details Date Type Department Care Team (Late st Contact Info) Description 03/09/2025 Results Follow-Up [facility] Primary Care at [address] [address] Burton Akhtar MD [address] [place] [address] [address] [place] [address] Thyroid Function Sunflower, Hemoglobin A1c, Lipid panel, Additional followed-up results: [...] materials from doctor or pharmacy Never 05/02/2023 [facility] Utilities Answer Date Recorded In the past 12 months has e [employer], gas, oil, or water [employer] threatened to shut off services in your home? No 08/23/2024 Social Connection and Isolation Panel Answer Date Recorded In a typical week, how many times do you talk on the phone with family, friends, or neighbors? Twice a week 08/23/2024 How often do you get together with friends or re latives? Once a week 08/23/2024 How often do you attend samaritan or judaism serv ices? 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 Gender Identity Female 11/26/2022 1:44 AM [...] which I recommend that you start taking qpur-yyc-fjbcaez omega-3/fish oil supplements which can help lower [...] track(2024 10:05 AM CDT) No Lula Lafleur, RN Note: Problem: At Risk for Self [...] documented as of this encounter Care Teams Hand Molder And Caster Relationship Specialty Start Date End Date Burton Akhtar MD [address] [facility] [address] [place] [address] PCP - General Family Medicine 01/28/25 José Verduzco DPM [address] [place] [address] Consulting Physician Foot and Ankle Surg 07/26/22 Anup Mayo MD [address] [facility] [address] [place] [address] Endocrinology Diabetes & Metabolism 07/26/22 Tha Arzate MD [address] [facility] [address] [place] [address] Consulting Physician Cardiovascular Disease 07/26/22 Salinas Hawkins MD [address] [facility] [address] [place] [address] Surgeon General Surgery 09/09/22 Lula Lafleur, JES [address] [place] [address] [address] [place] [address] Mathematics Faculty Member 07/19/24 Hu Bruno MD [address] [facility] [address] [place] [address] Consulting Physician Vascular Surgery 08/27/24 Elyse Young CNM [address] [facility] [address] [facility] [address] [place] [address] Nurse Practitioner Psychiatry 01/10/25 documented as of this encounter
[2025-04-14] MEDS: RAPID SEQUENCE INTUBATION KIT 1 EACH (19:59)
[2025-04-14] MEDS: SODIUM CHLORIDE 0.9% IV 800 ML 999 ML IV CONT (20:00)
[2025-04-14 20:36] LABS: Alveolar/Arterial O2 Gradient 364.2 mmHg; Carboxyhemoglobin 0.0 % THb (0-2.0); Fractional Inspired Oxygen 100 %; HCO3 ABG 17.5 mEq/l (22.0-26.0); Methemoglobin ABG 0.5 %THb (0-1.5); Oxygen Content ABG 16.3 %vol (16.0-22.0); Oxygen Saturation ABG 99.6 % (95.0-100.0); PCO2 ABG 40.9 mmHg (35.0-45.0); PO2 ABG 307.9 mmHg (80.0-100.0); PO2 FiO2 Ratio Arterial Blood 3.08 %; Reduced Hemoglobin 0.2 %THb (0-5.0)
[2025-04-14 20:42] LABS: Hematocrit 35.0 % (37.0-47.0); Hemoglobin 10.8 g/dL (12.0-15.0); Immature Granulocyte Percent A 0.5 % (0-0.5); Lymphocytes Absolute Auto 1.69 K/mm3 (0.9-3.2); Mean Corpuscular HGB Conc 30.9 g/dl (32-36); Mean Corpuscular Hemoglobin 28.7 pg (26-34); Mean Corpuscular Volume 93.1 fl (80-100); Nucleated Red Blood Cells Absolute Auto 0.000 K/mm3 (0.0-0.012); Nucleated Red Blood Cells Perc 0.0 % (0.0-0.2); Platelet Count Result 168 k/mm3 (150-375); Red Blood Count 3.76 M/mm3 (4.2-5.4); White Blood Count 8.0 K/mm3 (4.5-10.0)
[2025-04-14 20:44] LABS: Arterial Blood Gas Ventilator rate 15 /MIN; Modified Allen's Test Pass; Site Drawn LEFT RADIAL
[2025-04-14 20:45] LABS: Arterial Blood Gas Tidal Volume 450 ml
[2025-04-14 20:48] LABS: Add Urine Microscopic? YES; Appearance Urine Turbid (Clear); Glucose Urine UA 3+ mg/dL (Negative); Leukocyte Esterase Ur 3+ LEU/UL (Negative); Nitrate Urine Negative (Negative); Non Pathogenic Casts 0-2; Specific Grav Ur 1.017 (1.001-1.035)
[2025-04-14 20:54] LABS: INR 2.0; Prothrombin Time 22.4 Seconds (11.1-14.7)
[2025-04-14 20:55] LABS: Partial Thromboplastin Time 41.3 Seconds (22.3-36.8)
[2025-04-14] MEDS: PIPERACILLIN/TAZOBACTAM SOD 4.5 GM in SODIUM CHLORIDE 0.9% IV 100 ML 200 ML IVPB (21:04)
[2025-04-14 21:06] LABS: Acetaminophen 100 ug/mL (10-30)
[2025-04-14 21:06] LABS: Alanine Aminotransferase 29 U/L (6-35); Albumin Level 4.0 g/dL (3.5-5.1); Alkaline Phosphatase 151 U/L (38-126); Anion Gap 11 mmol/L (4-12); Aspartate Amino Transferase 37 U/L (14-36); Bilirubin,Total 0.5 mg/dL (0.2-1.3); Blood Urea Nitrogen 28 mg/dL (7-17); Calcium 9.5 mg/dL (8.4-10.2); Carbon Dioxide 21 mmol/L (22-30); Chloride 102 mmol/L (98-107); Estimated CRCL calculation 55 ml/min; Estimated Glomerular Filt Rate 39; Glucose 252 mg/dL (65-110); Lipase 85 U/L (23-300); Magnesium 2.4 mg/dL (1.6-2.3); Potassium 5.2 mmol/L (3.4-5.0); Sodium 134 mmol/L (137-145); Total Protein 7.1 g/dL (6.3-8.2)
--- NOTE | 2025-04-14 21:11 | PC.NURSE ---
194- EMS arrives Pt is unresponsive, on 4 L NC w an O2 of 93%. epi , 350 mL of NS given in route w a blood sugar of 288 1949-1 mL epi given 1954- 4 mg Zofran given IV 1958-1,000 mL of NS infused 1958- 30 mg etomidate 1999-100 mg rocuronium 2000- intubated, 7.5 23 '' at the lip 2004- 1,000 mL infused. 2009- clemons catheter, shant ascencion OG placed 73 @ the teeth
[2025-04-14 21:18] LABS: Troponin I < 0.012 ng/mL (0.000-0.034)
[2025-04-14 21:18] LABS: Influenza A QL RT-PCR Negative (Negative); Influenza B QL RT-PCR Negative (Negative); RSV RNA, RT-PCR Negative (Negative); SARS-CoV-2 RNA PCR Negative (Negative)
[2025-04-14] MEDS: INSULIN HUMAN REGULAR (*BKC) 100 UNITS in SODIUM CHLORIDE 0.9% IV 99 ML IV CONT (21:18)
[2025-04-14] MEDS: DEXTROSE 5%/0.45% SOD CHL 1,000 ML 62.5 ML IV CONT (21:19)
--- NOTE | 2025-04-14 21:21 | ED.GENADULT ---
HPI - General Adult General Chief complaint: Overdose Stated complaint: OD ON VARIOUS Rx MEDS History of Present Illness HPI narrative: Patient is a 69-year-old female who presents to the emergency department this evening status post intentional drug overdose. EMS got called by family members who found the patient drowsy/somnolent. Patient informed family members that she did overdose. Upon EMS arrival, patient did inform them that she took 10 of each of her morning medications. Patient does have an extensive list of medications, most concerning of those meds were amlodipine, Tylenol, losartan, calcium, baclofen, aripiprazole, duloxetine and gabapentin. Upon arrival to the ED, patient is altered, alert and oriented times 0-1, actively vomiting. Related Data Home Medications ?Medication ?Instructions ?Recorded ?Confirmed ?Last Taken ?Type acetaminophen 325 mg tablet 325 mg PO 0900,1400,2100 02/13/25 04/15/25 02/12/25 14:00 History amlodipine 10 mg tablet 10 mg PO DAILY 02/13/25 04/15/25 02/12/25 History ascorbic acid (vitamin C) 500 mg 500 mg PO DAILY 02/13/25 04/15/25 02/12/25 09:00 History tablet (C-500) aspirin 81 mg tablet,delayed 81 mg PO DAILY 02/13/25 04/15/25 02/12/25 09:00 History release (Adult Low Dose Aspirin) atorvastatin 80 mg tablet 80 mg PO DAILY 02/13/25 04/15/25 02/12/25 History baclofen 10 mg tablet 10 mg PO TID PRN muscle spasm 02/13/25 04/15/25 Unknown History calcium carbonate (Super Calcium) 600 mg PO DAILY 02/13/25 04/15/25 02/12/25 09:00 History cholecalciferol (vitamin D3) 50 2,000 unit PO DAILY 02/13/25 04/15/25 02/12/25 09:00 History mcg (2,000 unit) capsule (Vitamin D3) clopidogrel 75 mg tablet 75 mg PO DAILY 02/13/25 04/15/25 02/12/25 History dapagliflozin propanediol 10 mg 10 mg PO DAILY 02/13/25 04/15/25 02/12/25 History tablet (Farxiga) duloxetine 60 mg capsule,delayed 60 mg PO QAM 02/13/25 04/15/25 02/12/25 History release ezetimibe 10 mg tablet 10 mg PO DAILY 02/13/25 04/15/25 02/12/25 History gabapentin 300 mg capsule 300 mg PO 0900,1400,2100 02/13/25 04/15/25 02/12/25 09:00 History hydralazine 50 mg tablet 50 mg PO 0900,1400,2100 02/13/25 04/15/25 02/12/25 09:00 History insulin aspart U-100 100 unit/mL 20 unit subcut TIDWM 02/13/25 04/15/25 02/12/25 12:00 History (3 mL) subcutaneous pen (Novolog FlexPen U-100 Insulin aspart) insulin glargine 100 45 unit subcut Q12H 02/13/25 04/15/25 02/12/25 09:00 History unit-lixisenatide 33 mcg/mL subcutaneous pen ([place]iqua 100/33) lamotrigine 100 mg tablet 100 mg PO Q12H 02/13/25 04/15/25 02/12/25 09:00 History losartan 100 mg tablet 100 mg PO DAILY 02/13/25 04/15/25 02/12/25 09:00 History melatonin 5 mg tablet 5 mg PO HS 02/13/25 04/15/25 02/11/25 21:00 History multivitamin (Daily Multi-Vitamin 1 tablet PO DAILY 02/13/25 04/15/25 02/12/25 09:00 History tablet) rivaroxaban 2.5 mg tablet (Xarelto) 2.5 mg PO Q12H 02/13/25 04/15/25 02/12/25 09:00 History aripiprazole 5 mg tablet 5 mg PO DAILY 04/15/25 04/15/25 Unknown History sennosides 8.6 mg-docusate sodium 2 tab PO BID PRN constipation 04/15/25 04/15/25 Unknown History 50 mg tablet (Senokot-S) Allergies Allergy/AdvReac Type Severity Reaction Status Date / Time latex Allergy Unknown Unknown Verified 02/12/25 22:38 Review of Systems Review of Systems: Unable to obtain full review of systems secondary to patient's current status. [facility] Surgical History Surgical History Hx of left BKA Family History Family History Father Acute myocardial infarction Mother Diabetes mellitus Social History Social History Smoking status: Smoker, status unknown Tobacco type: cigarettes Second hand tobacco smoke exposure: Yes Alcohol intake: unknown Drinks per week: 0 Substance use: unknown Substance use type: does not use Do You Feel Safe in your Home?: Yes Lack of Transportation: No Lack of Food: Never True Current Housing: I Have Housing Concerned About Future Housing: No Difficulty Paying Gas/Electric Bills: No Difficulty Paying for Meds: No Currently Unemployed: No Education: Decline to Answer Difficulty w/ Childcare or Family Care: No Spiritual care concerns: No Exam Narrative: General: Response to sternal rub only. HEENT: PERRL, no rhinorrhea, no post nasal drip, actively vomiting. Neck: Trachea midline, no JVD, no lymphadenopathy. Cardiovascular: Regular rate and rhythm, no murmurs, rubs or gallops, no peripheral edema. Respiratory: Clear to auscultation bilaterally, no tachypnea, no wheezing, no rhonchi, no rubs, no respiratory distress. Abdomen: Soft, nontender, nondistended, no rebound, no guarding, no peritoneal signs. Musculoskeletal: No joint swelling, [id number] amputation, normal muscle tone. Skin: No rashes or petechia, no signs of infection. Neurological: Unable to obtain full neurological examination secondary to patient's altered mental status, spontaneous movement of all extremities, patient will respond to sternal rub only but opening her eyes. Course Vital Signs Vital signs: Vital Signs Temperature 95.3 F L 04/14/25 19:40 Pulse Rate 101 H 04/14/25 19:40 Respiratory Rate 14 04/14/25 19:40 Blood Pressure 99/47 L 04/14/25 19:40 Pulse Oximetry 94 04/14/25 19:40 Oxygen Delivery Nasal Cannula 04/14/25 19:40 Oxygen Flow Rate 4 04/14/25 19:40 Temperature 97.4 F L 04/16/25 00:00 Pulse Rate 56 L 04/16/25 00:00 Respiratory Rate 20 04/16/25 00:00 Blood Pressure 140/44 L 04/16/25 00:00 Pulse Oximetry 98 04/16/25 00:00 Oxygen Delivery Mechanical Ventilation 04/15/25 23:46 Oxygen Flow Rate 4 04/14/25 19:45 Fraction of Inspired Oxygen 30 04/16/25 00:00 Procedures Central Line Placement Right IJ: Central Line Date: 04/14/25 Central Line Time: 21:30 Performed Emergently - Given emergent patient condition, temporal constraints may have precluded informed consent.: Yes Time Out Performed: Yes Patient Placed on Monitor/Pulse Ox: Yes Max. Sterile Barrier Technique: Caps, large sterile sheet and hand hygiene Central Line Prep: 2% chlorhexidine scrub Technique: US-Guided Local Anesthetic: none Ultrasound Used for Placement: Yes Central Line Lumen Inserted: triple Post Procedure: sutured in place Post Procedure X-Ray: tip of catheter in good position and no pneumothorax seen Patient Tolerated Procedure: well and no complications Complications: none Intubation Intubation #1: Intubation Date: 04/14/25 Intubation Time: 21:00 Time out performed: Yes sedative: Etomidate Mg Given: 30 paralytic: Rocuronium Mg Given: 100 Laryngoscope: fiber optic video scope Tube Size (cm): 7.5 Method of Intubation: orotracheal Number of Attempts: 1 Tube Secured Depth (cm): 23 Tube Secured Location: lips Tube Placement Confirmation: visualized tube passing through cords, equal breath sounds bilaterally, no breath sounds over epigastrium and confirmation by capnometry Patient Tolerated Procedure: well and no complications Intubation Complications: none Medical Decision Making MDM Narrative Medical decision making narrative: The patient was evaluated by myself in the emergency department. History is obtained from EMS report and physical exam was performed. External medical records were reviewed at this time. IV was established and pertinent tests were ordered. Poison Control was contacted at this time by my battery recharger for recommendations. I also spoke with the poison Control myself, with Nikki at 2213. Patient was administered push dose epi for blood pressure support in preparation for intubation due to systolic blood pressure in the 50s. She was also administered 3 L IV fluid bolus with normal saline. Patient was administered calcium gluconate 1 g IV pending central line placement per poison control's recommendation. She was intubated for airway protection secondary to a GCS less than 8 as detailed under procedural note. She was also administered an amp of dextrose and started on D5 half-normal saline at a rate of 0.5 grams/kilogram per hour totaling to 62.5 cc per based on a weight of 125 kg. Initiated IV insulin bolus of 0.5 units/kilogram totalling 62.5 units and continued on an insulin drip at a rate of 0.5 units/kg per hour totaling 62.5 units per hour. Patient was also started on broad-spectrum antibiotics with vancomycin and Zosyn due to concern for aspiration pneumonia. Patient has not required any sedation post intubation likely secondary to some of the sedative medications that she took including baclofen which can cause [employer]IN[employer] depression. EKG was obtained which revealed sinus rhythm rate of 62 beats per minute, no evidence of arrhythmia or acute ischemia. EKG was independently interpreted by me and is currently pending official cardiology read. Laboratory results obtained revealing a pH of 7.248, bicarb 17.5, BUN 28, creatinine 1.3, lactic acid 3.7 with a repeat lactic acid of 2.8, magnesium 2.4, initial Tylenol level 100 with a repeat acetaminophen level 72. Otherwise remainder of the blood work is unremarkable. Urinalysis did reveal urinary tract infection. Viral swabs negative for COVID/influenza/RSV. Imaging studies obtained included CXR, abdominal x-ray and CT brain without IV contrast which was independently interpreted by me revealing: IMPRESSION: 1. Endotracheal tube and orogastric tube in expected positions. 2. Decreased left lung volume with elevation the left hemidiaphragm and patchy airspace opacities throughout the left lung which could represent atelectasis and/or pneumonia. 3. Pulmonary vascular congestion with increased interstitial pattern in the right perihilar region which could represent mild pulmonary edema and/or pneumonia. 4. No acute intracranial process. Differential diagnosis considerations include drug overdose, septic shock, dehydration, electrolyte derangements. Comorbidities impacting this visit include none. I have evaluated and discussed social determinants of health with the patient that could potentially impact subsequent diagnosis and treatment plans. Case was discussed with the on-call head of english Dr. Parada at 2230 and the on-call hospitalist Nate who accepts ICU admission. Per Dr. Parada's recommendation, the D5 half-normal saline drip was increased to 125 cc/hour. On repeat assessment of the patient, reevaluation revealed that the patient is doing well and is in no acute distress. arrived to our emergency department. Repeat vital signs were all reviewed and noted to be stable. Family members were updated regarding patient's current status. Critical care time of 120 minutes, exclusive of separately performed procedures, necessary for treating or preventing eminent or life-threatening deterioration of patient's condition of septic shock, polysubstance intentional drug overdose, focused on patient care provided personally by me and time spent during initial evaluation, physical examination, ordering and performing treatments and interventions, ordering and reviewing laboratory studies, ordering and reviewing radiographic studies, re-evaluation of the patient's condition, evaluation of the patient's response to treatment, and discussion of patient case with admitting provider in multiple consultants. Vital Signs Vital Signs: Vital Signs Temperature 95.3 F L 04/14/25 19:40 Pulse Rate 101 H 04/14/25 19:40 Respiratory Rate 14 04/14/25 19:40 Blood Pressure 99/47 L 04/14/25 19:40 Pulse Oximetry 94 04/14/25 19:40 Oxygen Delivery Nasal Cannula 04/14/25 19:40 Oxygen Flow Rate 4 04/14/25 19:40 Temperature 97.4 F L 04/16/25 00:00 Pulse Rate 56 L 04/16/25 00:00 Respiratory Rate 20 04/16/25 00:00 Blood Pressure 140/44 L 04/16/25 00:00 Pulse Oximetry 98 04/16/25 00:00 Oxygen Delivery Mechanical Ventilation 04/15/25 23:46 Oxygen Flow Rate 4 04/14/25 19:45 Fraction of Inspired Oxygen 30 04/16/25 00:00 Lab Data 04/15/25 04:56 04/15/25 04:56 Labs: Lab Results 04/14/25 04/14/25 04/14/25 Range/Units 20:20 20:21 20:29 WBC 8.0 (4.5-10.0) K/mm3 RBC 3.76 L (4.2-5.4) M/mm3 Hgb 10.8 L (12.0-15.0) g/dL Hct 35.0 L (37.0-47.0) % MCV 93.1 (80-100) fl MCH 28.7 (26-34) pg MCHC 30.9 L (32-36) g/dl RDW 15.3 H (11.5-14.5) % Plt Count 168 D (150-375) k/mm3 MPV 10.2 (7.4-10.4) fl Immature Gran % (Auto) 0.5 (0-0.5) % Neut % (Auto) 65.5 (45.5-73.1) % Lymph % (Auto) 21.0 (18.3-44.2) % [place] % (Auto) 10.8 H (2.6-8.5) % Eos % (Auto) 1.5 (0-4.4) % Baso % (Auto) 0.7 (0.2-1.2) % Lymph # (Auto) 1.69 (0.9-3.2) K/mm3 [place] # (Auto) 0.9 H (0.1-0.6) K/mm3 Eos # (Auto) 0.1 (0-0.3) K/mm3 Baso # (Auto) 0.1 (0.0-0.1) K/mm3 Abs Immat Gran (auto) 0.04 H (0.00-0.031) K/mm3 Absolute Neuts (auto) 5.3 (1.3-6.7) K/mm3 Absolute Nucleated RBC 0.000 (0.0-0.012) K/mm3 Nucleated RBC % 0.0 (0.0-0.2) % PT 22.4 H (11.1-14.7) Seconds INR 2.0 APTT 41.3 H (22.3-36.8) Seconds Methemoglobin (0-1.5) %THb Minute Volume Vent Mode Tidal Volume ml PEEP cmH2O Peak Inspir Pressure Pressure Support Sodium 134 L (137-145) mmol/L Potassium 5.2 H (3.4-5.0) mmol/L Chloride 102 (98-107) mmol/L Carbon Dioxide 21 L (22-30) mmol/L Anion Gap 11 (4-12) mmol/L BUN 28 H (7-17) mg/dL Creatinine 1.34 H (0.7-1.0) mg/dL Estim Creat Clear Calc 55 ml/min Estimated GFR 39 L (59 - ) Glucose 252 H (65-110) mg/dL POC Capillary Glucose (65-105) mg/dl Lactic Acid 3.7 H (0.7-2.0) mmol/L Calcium 9.5 (8.4-10.2) mg/dL Ionized Calcium Pending Magnesium 2.4 H (1.6-2.3) mg/dL Total Bilirubin 0.5 (0.2-1.3) mg/dL AST 37 H (14-36) U/L ALT 29 (6-35) U/L Alkaline Phosphatase 151 H (38-126) U/L Troponin I < 0.012 (0.000-0.034) ng/mL Total Protein 7.1 (6.3-8.2) g/dL Albumin 4.0 (3.5-5.1) g/dL Lipase 85 (23-300) U/L TSH (Reflex) 2.030 (0.465-4.68) uIU/mL Urine Color Yellow (Yellow) Urine Appearance Turbid H (Clear) Urine pH 5.5 (5.0-9.0) Ur Specific [place] 1.017 (1.001-1.035) Urine Protein 2+ H (Negative) mg/dL Urine Glucose (UA) 3+ H (Negative) mg/dL Urine Ketones Negative (Negative) mg/dL Ur Blood (Man) Negative (Negative) Urine Nitrate Negative (Negative) Urine Bilirubin Negative (Negative) Urine Urobilinogen 0.2 (<2.0) mg/dL Leukocyte Esterase Rfl 3+ H (Negative) RAVINDER/UL Urine RBC 0-2 (0-2) /hpf Urine WBC >100 H (0-3) /hpf Ur Squamous Epith Cells None seen (Few) /hpf Urine Bacteria 4+ /hpf Urine Casts 0-2 Salicylates (2-20) mg/dL Urine Opiates Screen Negative (Negative) Urine Methadone Screen Negative (Negative) Acetaminophen 100 H (10-30) ug/mL Ur Barbiturates Screen Negative (Negative) Ur Phencyclidine Scrn Negative (Negative) Ur Amphetamine Screen Negative (Negative) U Benzodiazepines Scrn Negative (Negative) Urine Cocaine Screen Negative (Negative) U Cannabinoids Screen Negative (Negative) Ethyl Alcohol < 10 (<10) mg/dL Influenza A (RT-PCR) Negative (Negative) Influenza B (RT-PCR) Negative (Negative) RSV (RT-PCR) Negative (Negative) SARS-CoV-2 RNA (RT-PCR) Negative (Negative) 08/25/25 08/25/25 08/25/25 Range/Units 20:34 21:20 22:29 WBC (4.5-10.0) K/mm3 RBC (4.2-5.4) M/mm3 Hgb (12.0-15.0) g/dL Hct (37.0-47.0) % MCV (80-100) fl MCH (26-34) pg MCHC (32-36) g/dl RDW (11.5-14.5) % Plt Count (150-375) k/mm3 MPV (7.4-10.4) fl Immature Gran % (Auto) (0-0.5) % Neut % (Auto) (45.5-73.1) % Lymph % (Auto) (18.3-44.2) % [place] % (Auto) (2.6-8.5) % Eos % (Auto) (0-4.4) % Baso % (Auto) (0.2-1.2) % Lymph # (Auto) (0.9-3.2) K/mm3 [place] # (Auto) (0.1-0.6) K/mm3 Eos # (Auto) (0-0.3) K/mm3 Baso # (Auto) (0.0-0.1) K/mm3 Abs Immat Gran (auto) (0.00-0.031) K/mm3 Absolute Neuts (auto) (1.3-6.7) K/mm3 Absolute Nucleated RBC (0.0-0.012) K/mm3 Nucleated RBC % (0.0-0.2) % PT (11.1-14.7) Seconds INR APTT (22.3-36.8) Seconds Methemoglobin 0.5 (0-1.5) %THb Minute Volume Not Reportable Vent Mode Cmv Tidal Volume 450 ml PEEP 5 cmH2O Peak Inspir Pressure Not Reportable Pressure Support Not Reportable Sodium 135 L (137-145) mmol/L Potassium 5.0 (3.4-5.0) mmol/L Chloride 103 (98-107) mmol/L Carbon Dioxide 22 (22-30) mmol/L Anion Gap 10 (4-12) mmol/L BUN 28 H (7-17) mg/dL Creatinine 1.30 H (0.7-1.0) mg/dL Estim Creat Clear Calc 56 ml/min Estimated GFR 41 L (59 - ) Glucose 301 H (65-110) mg/dL POC Capillary Glucose 246 H (65-105) mg/dl Lactic Acid (0.7-2.0) mmol/L Calcium 9.0 (8.4-10.2) mg/dL Ionized Calcium Magnesium (1.6-2.3) mg/dL Total Bilirubin (0.2-1.3) mg/dL AST (14-36) U/L ALT (6-35) U/L Alkaline Phosphatase (38-126) U/L Troponin I (0.000-0.034) ng/mL Total Protein (6.3-8.2) g/dL Albumin (3.5-5.1) g/dL Lipase (23-300) U/L TSH (Reflex) (0.465-4.68) uIU/mL Urine Color (Yellow) Urine Appearance (Clear) Urine pH (5.0-9.0) Ur Specific [place] (1.001-1.035) Urine Protein (Negative) mg/dL Urine Glucose (UA) (Negative) mg/dL Urine Ketones (Negative) mg/dL Ur Blood (Man) (Negative) Urine Nitrate (Negative) Urine Bilirubin (Negative) Urine Urobilinogen (<2.0) mg/dL Leukocyte Esterase Rfl (Negative) RAVINDER/UL Urine RBC (0-2) /hpf Urine WBC (0-3) /hpf Ur Squamous Epith Cells (Few) /hpf Urine Bacteria /hpf Urine Casts Salicylates (2-20) mg/dL Urine Opiates Screen (Negative) Urine Methadone Screen (Negative) Acetaminophen (10-30) ug/mL Ur Barbiturates Screen (Negative) Ur Phencyclidine Scrn (Negative) Ur Amphetamine Screen (Negative) U Benzodiazepines Scrn (Negative) Urine Cocaine Screen (Negative) U Cannabinoids Screen (Negative) Ethyl Alcohol (<10) mg/dL Influenza A (RT-PCR) (Negative) Influenza B (RT-PCR) (Negative) RSV (RT-PCR) (Negative) SARS-CoV-2 RNA (RT-PCR) (Negative) 04/14/25 04/14/25 04/14/25 Range/Units 22:29 22:42 22:50 WBC (4.5-10.0) K/mm3 RBC (4.2-5.4) M/mm3 Hgb (12.0-15.0) g/dL Hct (37.0-47.0) % MCV (80-100) fl MCH (26-34) pg MCHC (32-36) g/dl RDW (11.5-14.5) % Plt Count (150-375) k/mm3 MPV (7.4-10.4) fl Immature Gran % (Auto) (0-0.5) % Neut % (Auto) (45.5-73.1) % Lymph % (Auto) (18.3-44.2) % [place] % (Auto) (2.6-8.5) % Eos % (Auto) (0-4.4) % Baso % (Auto) (0.2-1.2) % Lymph # (Auto) (0.9-3.2) K/mm3 [place] # (Auto) (0.1-0.6) K/mm3 Eos # (Auto) (0-0.3) K/mm3 Baso # (Auto) (0.0-0.1) K/mm3 Abs Immat Gran (auto) (0.00-0.031) K/mm3 Absolute Neuts (auto) (1.3-6.7) K/mm3 Absolute Nucleated RBC (0.0-0.012) K/mm3 Nucleated RBC % (0.0-0.2) % PT (11.1-14.7) Seconds INR APTT (22.3-36.8) Seconds Methemoglobin (0-1.5) %THb Minute Volume Vent Mode Tidal Volume ml PEEP cmH2O Peak Inspir Pressure Pressure Support Sodium (137-145) mmol/L Potassium (3.4-5.0) mmol/L Chloride (98-107) mmol/L Carbon Dioxide (22-30) mmol/L Anion Gap (4-12) mmol/L BUN (7-17) mg/dL Creatinine (0.7-1.0) mg/dL Estim Creat Clear Calc ml/min Estimated GFR (59 - ) Glucose (65-110) mg/dL POC Capillary Glucose 284 H (65-105) mg/dl Lactic Acid 2.8 H (0.7-2.0) mmol/L Calcium 9.1 (8.4-10.2) mg/dL Ionized Calcium Magnesium (1.6-2.3) mg/dL Total Bilirubin (0.2-1.3) mg/dL AST (14-36) U/L ALT (6-35) U/L Alkaline Phosphatase (38-126) U/L Troponin I (0.000-0.034) ng/mL Total Protein (6.3-8.2) g/dL Albumin (3.5-5.1) g/dL Lipase (23-300) U/L TSH (Reflex) (0.465-4.68) uIU/mL Urine Color (Yellow) Urine Appearance (Clear) Urine pH (5.0-9.0) Ur Specific [place] (1.001-1.035) Urine Protein (Negative) mg/dL Urine Glucose (UA) (Negative) mg/dL Urine Ketones (Negative) mg/dL Ur Blood (Man) (Negative) Urine Nitrate (Negative) Urine Bilirubin (Negative) Urine Urobilinogen (<2.0) mg/dL Leukocyte Esterase Rfl (Negative) RAVINDER/UL Urine RBC (0-2) /hpf Urine WBC (0-3) /hpf Ur Squamous Epith Cells (Few) /hpf Urine Bacteria /hpf Urine Casts Salicylates 1.4 L (2-20) mg/dL Urine Opiates Screen (Negative) Urine Methadone Screen (Negative) Acetaminophen 72 H (10-30) ug/mL Ur Barbiturates Screen (Negative) Ur Phencyclidine Scrn (Negative) Ur Amphetamine Screen (Negative) U Benzodiazepines Scrn (Negative) Urine Cocaine Screen (Negative) U Cannabinoids Screen (Negative) Ethyl Alcohol (<10) mg/dL Influenza A (RT-PCR) (Negative) Influenza B (RT-PCR) (Negative) RSV (RT-PCR) (Negative) SARS-CoV-2 RNA (RT-PCR) (Negative) ABG Data ABG results: 04/14/25 20:34 Puncture Site Left radial ABG pH 7.248 L* ABG pCO2 40.9 ABG pO2 307.9 H ABG PO2/FiO2 Ratio 3.08 ABG HCO3 17.5 L ABG O2 Saturation 99.6 ABG O2 Content 16.3 ABG Base Excess -9.2 A-a Gradient 364.2 Oxyhemoglobin 99.3 Carboxyhemoglobin 0.0 Reduced Hemoglobin 0.2 Total Hemoglobin 11.1 L O2 Delivery Device Ventilator O2 Liters/Min Not Reportable Vent Rate 15 FiO2 100 Critical Care Time Critical Care Time Critical Care Time: Yes Total Critical Care Time: 120 (Please refer to [facility] for attestation.) Discharge Plan Discharge Clinical Impression: Septic shock, Suicide attempt, Polysubstance abuse, Intentional drug overdose, Aspiration pneumonia Patient Disposition: Still a Patient Condition: Critical
[2025-04-14] MEDS: INSULIN HUMAN REGULAR (*BKC) 100 UNITS/ML 62 UNITS IV PUSH (21:22)
[2025-04-14] MEDS: CALCIUM GLUCONATE 1,000 MG/10 ML VIAL 1000 MG IV PUSH (21:23)
[2025-04-14] MEDS: DEXTROSE 50% 25 GM/50 ML SYRINGE IV PUSH (21:26)
[2025-04-14 21:37] LABS: Thyroid Stimulating Hormone Reflex 2.030 uIU/mL (0.465-4.68)
--- NOTE | 2025-04-14 21:48 | PC.NURSE ---
per EMS report family verbalized pt took 10 days of AM medication pill boxes. each day pt takes 2 acetaminophen 325 mg amlodipine 10 mg aripiprazole 5 mg aspirin 81 mg atorvastatin 80 mg baclofen 10 mg calcium 600 mg vitamin D-3 2,000 ceu clopidogrel- 75 mg vitamin B-12 500 mg duloxetine 60 mg ezetimibe 10 mg Farxiga 10 mg gabapentin 300 mg hydralazine 50 mg lamotrigine 100 mg losartan 100 mg Xarelto 2.5 TheraCran one multivitamin vitamin c -500 mg see copy of pt handwritten med list.
[2025-04-14 21:50] LABS: Cannabinoid Screen Urine Negative (Negative)
--- NOTE | 2025-04-14 22:13 | PC.NURSE ---
ON 04/14/2025 AT 1443 THIS RN CALLED [facility] AT PER EDP; DR. CADE'S REQUEST. WAS ABLE TO AGAIN SPEAK WITH ANSHUL ANDRE. CALL TRANSFERRED TO EDP; DR MADDIE BOATENG.
[2025-04-14] MEDS: VANCOMYCIN 1,250 MG/NS 250 ML 1,250 MG/250 ML BAG 166.67 MG IVPB (22:36)
[2025-04-14 22:50] LABS: Acetaminophen 72 ug/mL (10-30); Calcium 9.0 mg/dL (8.4-10.2); Salicylate 1.4 mg/dL (2-20)
[2025-04-14 23:12] LABS: Anion Gap 10 mmol/L (4-12); Blood Urea Nitrogen 28 mg/dL (7-17); Calcium 9.1 mg/dL (8.4-10.2); Carbon Dioxide 22 mmol/L (22-30); Chloride 103 mmol/L (98-107); Estimated CRCL calculation 56 ml/min; Estimated Glomerular Filt Rate 41; Glucose 301 mg/dL (65-110); Potassium 5.0 mmol/L (3.4-5.0); Sodium 135 mmol/L (137-145)
--- NOTE | 2025-04-14 23:57 | PC.NURSE ---
This patient, Cassi Yo, was admitted to Intensive Care Unit-6. Patient/family oriented to hospital policies and general routines including ID bracelet, bed and alarms, visiting hours, pain management, procedures, bathroom and other care routines, personal items, smoking policy, room service/diet, and visiting hours. Information on how to activate the Rapid Response Team has been discussed. Patient/Family are encouraged to report perceived risks to care and to ask questions if they do not understand what they are told or what they should do.
[2025-04-15] VITALS (80 sets, daily range): BP systolic 81–164; BP diastolic 32–81; PULSE 48–89; RESP 16–24; TEMP 35.3–36.4; O2SAT 96–100; BMI 48.2; BMI 48.7
[2025-04-15] MEDS: VANCOMYCIN 1,250 MG/NS 250 ML 1,250 MG/250 ML BAG 166.67 MG IVPB (00:21)
[2025-04-15] MEDS: EPINEPHrine HCL INJ 1 MG in DEXTROSE 5% IN WATER 250 ML 15.06 MG IV CONT (00:39)
[2025-04-15] MEDS: CALCIUM CHLORIDE 1,000 MG/10 ML SYRINGE 2000 MG IV PUSH (00:51)
--- NOTE | 2025-04-15 00:54 | PM.IMHP ---
H&P: HPI History of Present Illness Date/Time: 04/15/25 00:54 Chief Complaint: Calcium channel ryne overdose, intentional Narrative: Cassi Wilkins is a 69-year-old female who presented after an intentional overdose of her morning medications, reportedly due to suicidal ideation (just over life, can't do it anymore). Family members called EMS when she told them she took 10 of each of her morning medications. She has a medication list of 15?20 drugs, with the most concerning for overdose being amlodipine (calcium channel ryne), Tylenol (acetaminophen), losartan, calcium, baclofen, aripiprazole (antipsychotic), duloxetine, and gabapentin. On EMS arrival, she was alert and communicative. By ED arrival, she was only opening her eyes to sternal rub and began actively vomiting. She exhibited hypotension (BP in the 50s systolic) and bradycardia (HR in the 50s). Initial management included push-dose epinephrine, intubation, a 3-liter normal saline bolus, and initiation of calcium channel ryne toxicity protocol (calcium gluconate, dextrose, and insulin drip). Poison Control was consulted. Time of ingestion is estimated at 1900. Patient is intubated but not sedated on arrival to the ICU. She was bradycardic in the 50s while we were preparing to administer more calcium (chloride now that she has a central line) her bradycardia worsened and she temporarily lost P waves on bedside telemetry monitoring. 2 grams of Calcium Chloride IV Push over 10 minutes completed by this provider as we placed Pacer Pads in AP placement. An additional 2 grams of Calcium Chloride (for infusion) ordered from pharmacy. Patient was initiated on an epinephrine drip and quickly uptitrated to 10 mcgs/kg/min. Through these efforts, blood pressure and heart rate improved. Insulin drip in place along with ICU DKA order set per instructions from Dr. Parada, [employer] architect [employer] Sales Engineer. We updated poison control as well. Review of Systems Review of Systems: ROS unobtainable: Yes unobtainable due to endotracheal tube, unobtainable due to medical condition and unobtainable due to mental status PMFSH Surgical History Surgical History Hx of left BKA Family History Family History Father Acute myocardial infarction Mother Diabetes mellitus Social History Social History Smoking status: Smoker, status unknown Tobacco type: cigarettes Second hand tobacco smoke exposure: Yes Alcohol intake: unknown Drinks per week: 0 Substance use: unknown Substance use type: does not use Do You Feel Safe in your Home?: Yes Lack of Transportation: No Lack of Food: Never True Current Housing: I Have Housing Concerned About Future Housing: No Difficulty Paying Gas/Electric Bills: No Difficulty Paying for Meds: No Currently Unemployed: No Education: Decline to Answer Difficulty w/ Childcare or Family Care: No Spiritual care concerns: Yes Meds Home Medications and Allergies Home Medications ?Medication ?Instructions ?Recorded ?Confirmed ?Type acetaminophen 325 mg tablet 325 mg PO 0900,1400,2100 02/13/25 04/15/25 History amlodipine 10 mg tablet 10 mg PO DAILY 02/13/25 04/15/25 History ascorbic acid (vitamin C) 500 mg 500 mg PO DAILY 02/13/25 04/15/25 History tablet (C-500) aspirin 81 mg tablet,delayed 81 mg PO DAILY 02/13/25 04/15/25 History release (Adult Low Dose Aspirin) atorvastatin 80 mg tablet 80 mg PO DAILY 02/13/25 04/15/25 History baclofen 10 mg tablet 10 mg PO TID PRN muscle spasm 02/13/25 04/15/25 History calcium carbonate (Super Calcium) 600 mg PO DAILY 02/13/25 04/15/25 History cholecalciferol (vitamin D3) 50 2,000 unit PO DAILY 02/13/25 04/15/25 History mcg (2,000 unit) capsule (Vitamin D3) clopidogrel 75 mg tablet 75 mg PO DAILY 02/13/25 04/15/25 History dapagliflozin propanediol 10 mg 10 mg PO DAILY 02/13/25 04/15/25 History tablet (Farxiga) duloxetine 60 mg capsule,delayed 60 mg PO QAM 02/13/25 04/15/25 History release ezetimibe 10 mg tablet 10 mg PO DAILY 02/13/25 04/15/25 History gabapentin 300 mg capsule 300 mg PO 0900,1400,2100 02/13/25 04/15/25 History hydralazine 50 mg tablet 50 mg PO 0900,1400,2100 02/13/25 04/15/25 History insulin aspart U-100 100 unit/mL 20 unit subcut TIDWM 02/13/25 04/15/25 History (3 mL) subcutaneous pen (Novolog FlexPen U-100 Insulin aspart) insulin glargine 100 45 unit subcut Q12H 02/13/25 04/15/25 History unit-lixisenatide 33 mcg/mL subcutaneous pen (Soliqua 100/33) lamotrigine 100 mg tablet 100 mg PO Q12H 02/13/25 04/15/25 History losartan 100 mg tablet 100 mg PO DAILY 02/13/25 04/15/25 History melatonin 5 mg tablet 5 mg PO HS 02/13/25 04/15/25 History multivitamin (Daily Multi-Vitamin 1 tablet PO DAILY 02/13/25 04/15/25 History tablet) rivaroxaban 2.5 mg tablet (Xarelto) 2.5 mg PO Q12H 02/13/25 04/15/25 History tamsulosin 0.4 mg capsule 0.4 mg PO HS #30 caps 02/18/25 04/15/25 Rx aripiprazole 5 mg tablet 5 mg PO DAILY 04/15/25 04/15/25 History sennosides 8.6 mg-docusate sodium 2 tab PO BID PRN constipation 04/15/25 04/15/25 History 50 mg tablet (Senokot-S) Allergies Allergy/AdvReac Type Severity Reaction Status Date / Time latex Allergy Unknown Unknown Verified 02/12/25 22:38 Vital Signs Vital Signs - 24 hr 04/14/25 19:40 04/14/25 19:45 04/14/25 19:45 Temperature 35.2 C L Pulse Rate 101 H 85 Respiratory Rate 14 Blood Pressure 99/47 L Pulse Oximetry 94 93 100 Oxygen Delivery Nasal Cannula Nasal Cannula Mechanical Ventilation Oxygen Flow Rate 4 4 Fraction of Inspired Oxygen 40 04/14/25 20:01 04/14/25 20:20 04/14/25 20:29 Temperature 35.6 C L Pulse Rate 84 62 Respiratory Rate 15 Blood Pressure Pulse Oximetry 95 98 Oxygen Delivery Mechanical Ventilation Oxygen Flow Rate Fraction of Inspired Oxygen 04/14/25 20:30 04/14/25 20:31 04/14/25 20:45 Temperature 35.5 C L 35.5 C L Pulse Rate 62 60 89 Respiratory Rate 15 15 Blood Pressure 106/42 L Pulse Oximetry 99 99 96 Oxygen Delivery Mechanical Ventilation Oxygen Flow Rate Fraction of Inspired Oxygen 40 04/14/25 20:46 04/14/25 20:47 04/14/25 21:00 Temperature 35.3 C L 35.3 C L 35.0 C L Pulse Rate 62 70 Respiratory Rate 15 17 Blood Pressure 122/43 L Pulse Oximetry 95 95 Oxygen Delivery Oxygen Flow Rate Fraction of Inspired Oxygen 04/14/25 21:02 04/14/25 21:10 04/14/25 21:15 Temperature 35.2 C L 35.2 C L 35.2 C L Pulse Rate 62 64 63 Respiratory Rate 15 18 13 Blood Pressure 109/41 L Pulse Oximetry 94 93 93 Oxygen Delivery Oxygen Flow Rate Fraction of Inspired Oxygen 04/14/25 21:16 04/14/25 21:30 04/14/25 21:31 Temperature 35.2 C L 35.1 C L 35.1 C L Pulse Rate 60 102 H 91 Respiratory Rate 15 20 15 Blood Pressure 114/40 L 125/41 L Pulse Oximetry 93 95 95 Oxygen Delivery Oxygen Flow Rate Fraction of Inspired Oxygen 04/14/25 21:47 04/14/25 21:53 04/14/25 22:00 Temperature 34.9 C L 35.0 C L Pulse Rate 88 93 Respiratory Rate 19 16 Blood Pressure Pulse Oximetry 94 95 95 Oxygen Delivery Mechanical Ventilation Oxygen Flow Rate Fraction of Inspired Oxygen 40 04/14/25 22:01 04/14/25 22:30 04/14/25 22:31 Temperature 35.0 C L 35.1 C L Pulse Rate 89 89 86 Respiratory Rate 17 Blood Pressure 116/40 L Pulse Oximetry 95 96 95 Oxygen Delivery Mechanical Ventilation Oxygen Flow Rate Fraction of Inspired Oxygen 40 04/14/25 22:33 04/14/25 22:43 04/14/25 22:45 Temperature 35.1 C L 35.1 C L 35.2 C L Pulse Rate 86 87 Respiratory Rate 16 14 Blood Pressure 109/40 L Pulse Oximetry 96 97 Oxygen Delivery Oxygen Flow Rate Fraction of Inspired Oxygen 04/14/25 22:46 04/14/25 23:00 04/14/25 23:01 Temperature 35.2 C L 35.3 C L 35.3 C L Pulse Rate 86 86 85 Respiratory Rate 15 14 15 Blood Pressure 114/42 L 115/40 L Pulse Oximetry 96 96 95 Oxygen Delivery Oxygen Flow Rate Fraction of Inspired Oxygen 04/14/25 23:17 04/14/25 23:32 04/15/25 00:05 Temperature 35.4 C L 35.6 C L 35.5 C L Pulse Rate 85 Respiratory Rate 17 Blood Pressure 114/49 L Pulse Oximetry 97 Oxygen Delivery Oxygen Flow Rate Fraction of Inspired Oxygen 04/15/25 00:12 04/15/25 00:23 04/15/25 00:39 Temperature 35.5 C L Pulse Rate 89 85 54 L Respiratory Rate 17 Blood Pressure 114/49 L 81/37 L Pulse Oximetry 96 97 Oxygen Delivery Mechanical Ventilation Oxygen Flow Rate Fraction of Inspired Oxygen 35 04/15/25 00:43 04/15/25 00:46 04/15/25 00:50 Temperature Pulse Rate 48 L 56 L 55 L Respiratory Rate Blood Pressure 83/41 L 100/37 L 108/37 L Pulse Oximetry Oxygen Delivery Oxygen Flow Rate Fraction of Inspired Oxygen Exam Narrative: GENERAL: Unconscious, minimally responsive to pain, intubated but not sedated HEAD: Normocephalic, atraumatic. Pupils initially dilated, later constricted then dilated again, responsive to light but sluggish ENT:? Mucous membranes moist. CHEST: Scattered coarse sounds throughout HEART: Borderline bradycardic rate, peripheral pulses weak ABDOMEN: Soft, nontender, nondistended. EXTREMITIES: Left BKA SKIN: Cool dry pale NEURO: Intubated but not sedated, motor activity and response to pain and occasionally spontaneous H&P: Results Labs Labs: Short CBC 04/14/25 Range/Units 20:20 WBC 8.0 (4.5-10.0) K/mm3 Hgb 10.8 L (12.0-15.0) g/dL Hct 35.0 L (37.0-47.0) % Plt Count 168 D (150-375) k/mm3 BMP 04/14/25 04/14/25 04/14/25 20:20 22:29 22:29 Sodium 134 L 135 L Potassium 5.2 H 5.0 Chloride 102 103 Carbon Dioxide 21 L 22 BUN 28 H 28 H Creatinine 1.34 H 1.30 H Glucose 252 H 301 H Calcium 9.5 9.0 9.1 Cardiac Enzymes 04/14/25 Range/Units 20:20 Troponin I < 0.012 (0.000-0.034) ng/mL Liver Function 04/14/25 Range/Units 20:20 Total Bilirubin 0.5 (0.2-1.3) mg/dL AST 37 H (14-36) U/L ALT 29 (6-35) U/L Alkaline Phosphatase 151 H (38-126) U/L Albumin 4.0 (3.5-5.1) g/dL Urine 04/14/25 Range/Units 20:20 Urine Color Yellow (Yellow) Urine Appearance Turbid H (Clear) Urine pH 5.5 (5.0-9.0) Ur Specific [place] 1.017 (1.001-1.035) Urine Protein 2+ H (Negative) mg/dL Urine Glucose (UA) 3+ H (Negative) mg/dL Pulse Oximetry SpO2 results: 97% average via ventilator Attestation: I personally reviewed and interpreted this pulse oximetry as follows: Interpretation: Patient still requires oxygenation with ventilation ECG Attestation: I personally reviewed and interpreted this ECG as follows: ECG completion date: 04/14/25 ECG completion time: 21:01 Prior ECG tracings: available for review Interpretation: atrial fibrillation rate of 62, QRSd 124, QTC 428, QRS axis -12, no STEMI Imaging Chest x-ray: Radiologist's impression: EXAMINATION: XR chest ET placement, XR abdomen gastric tube insert DATE: 04/14/2025 20:37 INDICATION: Overdose. Endotracheal tube and orogastric tube placement. TECHNIQUE: 1. AP view of the chest was obtained. 2. AP view of the abdomen was obtained. COMPARISON: Chest radiograph dated 02/12/2025 FINDINGS: Chest: Endotracheal tube tip 4.7 cm above the robbi. Elevation of the left hemidiaphragm. Pulmonary vascular congestion with mild increased interstitial pattern in the right perihilar region. More patchy airspace opacities in the left lung. No pleural effusion or pneumothorax. Heart size is normal. Abdomen: The pelvis and right abdomen are excluded from the [id number]. Orogastric tube tip in proximal side port in the body the stomach. No dilated loops of gas-filled bowel in the visualized abdomen. IMPRESSION: 1. Endotracheal tube and orogastric tube in expected positions. 2. Decreased left lung volume with elevation the left hemidiaphragm and patchy airspace opacities throughout the left lung which could represent atelectasis and/or pneumonia. 3. Pulmonary vascular congestion with increased interstitial pattern in the right perihilar region which could represent mild pulmonary edema and/or pneumonia. Reviewed, dictated and finalized at location A. Assessment and Plan Assessment and plan (1) Intentional overdose of calcium-channel ryne: Code(s): T46.1X2A - Poisoning by calcium-channel blockers, intentional self-harm, initial encounter Status: Acute Assessment and Plan: -Intense resuscitation required in ER and ICU -Epinephrine drip, calcium chloride, vasopressin, D5 1/2 NS, antibiotics for urine and sputum infection concerns -Frequent medication changes (2) Suicide attempt: Code(s): T14.91XA - Suicide attempt, initial encounter Status: Acute Assessment and Plan: -Reported by Family to ER that patient called to say what she had done -10 days of all home medications taken--several blood pressure medications including calcium channel ryne amlodipine as well as several blood thinning medicines including aspirin Plavix and Xarelto. (3) Septic shock: Code(s): A41.9 - Sepsis, unspecified organism; R65.21 - Severe sepsis with septic shock Status: Acute Assessment and Plan: -imaging findings concerning for pneumonia and urine findings concerning for UTI with elevated lactic acid decreased level of consciousness and hypotension (4) Metabolic acidosis: Code(s): E87.20 - Acidosis, unspecified Status: Acute Assessment and Plan: Initial ABG with decreased HC03 to 17 and pH of 7.248 (5) Aspiration pneumonia: Code(s): J69.0 - Pneumonitis due to inhalation of food and vomit Status: Acute Assessment and Plan: -thick dark brown sputum with imaging findings consistent with pneumonia versus aspiration (6) Thrombocytopenia: Code(s): D69.6 - Thrombocytopenia, unspecified Status: Acute Assessment and Plan: -aspirin and Plavix included in medications used for overdose labs with initial platelet count 168 but a history thrombocytopenia in the 60s and 70s -slow oozing noted around central line access in the right IJ (7) Diabetes mellitus: Code(s): E11.9 - Type 2 diabetes mellitus without complications Status: Acute Assessment and Plan: -patient on intense insulin drip and glucose administration calcium channel ryne overdose (8) Hx of left BKA: Code(s): Z89.512 - Acquired absence of left leg below knee Status: Chronic Assessment and Plan: Noted history Quality VTE Prophylaxis VTE prophylaxis: mechanical ordered If No VTE Prophylaxis Answer both mechanical and pharmacologic: Reason no pharmacologic proph: medical contraindication (Overdose on aspirin, Plavix, Xarelto) active bleeding/bleeding risk Due to a high probability of clinically significant, life threatening deterioration, the patient required my highest level of preparedness to intervene emergently and I personally spent this critical care time directly and personally managing the patient. This critical care time included obtaining a history; examining the patient; pulse oximetry; ordering and review of studies; arranging urgent treatment with development of a management plan; evaluation of patient's response to treatment; frequent reassessment; and discussions with other providers. It was exclusive of separately billable procedures and treating other patients and teaching time. Please see Assessment and Plan section and the rest of the note for further information on patient assessment and treatment. Critical Care time: 120 minutes Hospitalist MIPS Advance Care Plan I have confirmed that the patient's Advanced Care Plan is present, code status is documented, or surrogate decision maker is listed in patient medical record.: Yes Medication Reconciliation I have utilized all available resources to obtain, update and review the patients current medications (includes all prescriptions, OTC, herbals, cannabis, and nutritional supplements).: Yes
[2025-04-15 00:57] LABS: MRSA (PCR) NOT DETECTED (NOT DETECTE)
[2025-04-15] MEDS: SODIUM CHLORIDE 0.9% IVPB (01:03)
[2025-04-15] MEDS: CALCIUM CHLORIDE IVPB (01:03)
[2025-04-15] MEDS: INSULIN HUMAN REGULAR (*BKC) 100 UNITS in SODIUM CHLORIDE 0.9% IV 99 ML 14.44 UNITS IV CONT (01:16)
--- NOTE | 2025-04-15 01:50 | WNDPHOTO ---
PHOTO ONLY - See Nursing Notes and/ or assessments for documentation.
--- NOTE | 2025-04-15 01:52 | WNDPHOTO ---
PHOTO ONLY - See Nursing Notes and/ or assessments for documentation.
[2025-04-15] MEDS: CEFEPIME 2 GM in SODIUM CHLORIDE 0.9% IV 50 ML 100 ML IVPB ×2 (02:17→13:44)
[2025-04-15] MEDS: EPINEPHrine HCL INJ 1 MG in DEXTROSE 5% IN WATER 250 ML 150.6 MG IV CONT (02:21)
[2025-04-15] MEDS: metroNIDAZOLE 500 MG/ISO 100ML 500 MG/100 ML BAG 100 MG IVPB ×2 (02:44→09:42)
[2025-04-15 03:23] LABS: Alveolar/Arterial O2 Gradient 96.6 mmHg; Fractional Inspired Oxygen 35 %; HCO3 ABG 21.3 mEq/l (22.0-26.0); Oxygen Content ABG 15.0 %vol (16.0-22.0); Oxygen Saturation ABG 96.0 % (95.0-100.0); PCO2 ABG 50.0 mmHg (35.0-45.0); PO2 ABG 94.8 mmHg (80.0-100.0); PO2 FiO2 Ratio Arterial Blood 2.71 %
[2025-04-15 03:27] LABS: Modified Allen's Test Pass; Site Drawn RIGHT RADIAL
[2025-04-15 03:28] LABS: Arterial Blood Gas Tidal Volume 450 ml; Arterial Blood Gas Ventilator rate 15 /MIN
[2025-04-15] MEDS: EPINEPHrine HCL INJ 4 MG in DEXTROSE 5% IN WATER 250 ML 38.1 MG IV CONT (04:01)
[2025-04-15] MEDS: VASOPRESSIN INJ 100 UNITS in DEXTROSE 5% 95 ML IV CONT (04:04)
[2025-04-15] MEDS: CENTRAL LINE FLUSH 10 ML IV PUSH ×3 (04:52→20:18)
[2025-04-15 05:02] LABS: Hematocrit 32.5 % (37.0-47.0); Hemoglobin 9.9 g/dL (12.0-15.0); Immature Granulocyte Percent A 0.5 % (0-0.5); Lymphocytes Absolute Auto 0.75 K/mm3 (0.9-3.2); Mean Corpuscular HGB Conc 30.5 g/dl (32-36); Mean Corpuscular Hemoglobin 29.2 pg (26-34); Mean Corpuscular Volume 95.9 fl (80-100); Nucleated Red Blood Cells Absolute Auto 0.000 K/mm3 (0.0-0.012); Nucleated Red Blood Cells Perc 0.0 % (0.0-0.2); Platelet Count Result 198 k/mm3 (150-375); Red Blood Count 3.39 M/mm3 (4.2-5.4); White Blood Count 13.7 K/mm3 (4.5-10.0)
[2025-04-15] MEDS: fentaNYL CITRATE INJ (*CRX) 100 MCG/2 ML VIAL IV PUSH (05:15)
[2025-04-15] MEDS: MIDAZOLAM HCL (*CRX) 2 MG/2 ML VIAL 4 MG IV PUSH (05:16)
[2025-04-15 05:19] LABS: Alanine Aminotransferase 29 U/L (6-35); Albumin Level 3.3 g/dL (3.5-5.1); Alkaline Phosphatase 117 U/L (38-126); Anion Gap 7 mmol/L (4-12); Aspartate Amino Transferase 38 U/L (14-36); Bilirubin,Total 0.4 mg/dL (0.2-1.3); Blood Urea Nitrogen 28 mg/dL (7-17); Calcium 10.6 mg/dL (8.4-10.2); Carbon Dioxide 22 mmol/L (22-30); Chloride 103 mmol/L (98-107); Estimated CRCL calculation 50 ml/min; Estimated Glomerular Filt Rate 37; Glucose 357 mg/dL (65-110); Magnesium 2.3 mg/dL (1.6-2.3); Potassium 5.1 mmol/L (3.4-5.0); Sodium 132 mmol/L (137-145); Total Protein 6.1 g/dL (6.3-8.2)
[2025-04-15 05:23] LABS: INR 1.3; Prothrombin Time 16.7 Seconds (11.1-14.7)
[2025-04-15] MEDS: FENTANYL 2,500MCG/NS250ML(*CRX 2,500 MCG/250 ML BAG IV CONT (06:06)
[2025-04-15] MEDS: MIDAZOLAM 100MG/NS 100ML(*CRX) 100 MG/100 ML BAG IV CONT (06:06)
[2025-04-15] MEDS: INSULIN HUMAN REGULAR (*BKC) 100 UNITS in SODIUM CHLORIDE 0.9% IV 99 ML 24.4 UNITS IV CONT (06:21)
[2025-04-15] MEDS: IPRATROPIUM 0.5 MG/ALBUTEROL SULFATE 2.5 MG AMPUL.NEB 3 ML INHALATION ×3 (07:19→20:03)
[2025-04-15] MEDS: DEXTROSE 5%/0.45% SOD CHL 1,000 ML 65 ML IV CONT ×2 (08:10→23:48)
[2025-04-15] MEDS: MINERAL OIL/WHITE PETROLATUM OINTMENT 1 APPLIC EACH EYE ×2 (08:12→20:18)
[2025-04-15] MEDS: PANTOPRAZOLE SODIUM IV 40 MG VIAL IV PUSH (08:36)
--- NOTE | 2025-04-15 08:38 | WPDCNINT ---
Assessment and Plan Assessment and plan (1) Intentional overdose of calcium-channel ryne: Code(s): T46.1X2A - Poisoning by calcium-channel blockers, intentional self-harm, initial encounter Status: Acute Assessment and Plan: Patient with calcium channel ryne/amlodipine overdose causing severe hypotension, bradycardia -received multiple doses of calcium chloride and calcium gluconate -calcium level this morning 10.6 -patient currently on insulin infusion for calcium channel ryne, patient also on D5 1/2 NS infusion -continue epinephrine infusion, maintain MAP > 60 mmHg or SBP > 120 mmHg -Poison Control was notified and following and recommended insulin infusion -continue to monitor closely (2) Intentional drug overdose: Code(s): T50.902A - Poisoning by unspecified drugs, medicaments and biological substances, intentional self-harm, initial encounter Status: Acute Assessment and Plan: Patient overdosed on multiple other medications, most concerning are Tylenol, losartan, baclofen, aripiprazole, duloxetine, gabapentin, clopidogrel, rivaroxaban -INR is 1.3 this morning -received IV fluids, will give additional IV fluids -continue monitor urine output (3) Suicide attempt: Code(s): T14.91XA - Suicide attempt, initial encounter Status: Acute Assessment and Plan: Likely suicidal attempt/ideation - According the family she did tell them just over life, cannot do it anymore -once patient is medically stable will have care coordination and crisis management evaluate the patient for inpatient psych (4) Shock circulatory: Code(s): R57.9 - Shock, unspecified Status: Acute Assessment and Plan: Circulatory shock likely related to losartan, amlodipine and multiple other medications -continue vasopressors as needed -lactic acid trending down, 2.6 this morning, will give additional fluids (5) Respiratory failure: Code(s): J96.90 - Respiratory failure, unspecified, unspecified whether with hypoxia or hypercapnia Status: Acute Assessment and Plan: Acute respiratory failure likely related to altered mental status, aspiration pneumonia due to emesis upon arrival to the ER -continue CMV mode of ventilation, peep of 8, 35% FiO2 -ABGs and chest x-ray reviewed, ventilator adjusted -will add bronchodilators flow patient was wheezing earlier this morning -sedated with fentanyl, Versed, maintain RASS of 0 to -2, daily SBT and SAT (6) Aspiration pneumonia: Code(s): J69.0 - Pneumonitis due to inhalation of food and vomit Status: Acute Assessment and Plan: Patient had emesis with altered mental status, chest x-ray showed possible atelectasis versus pneumonia likely aspiration -continue cefepime and vancomycin (04/15) (7) Diabetes mellitus: Code(s): E11.9 - Type 2 diabetes mellitus without complications Status: Acute Assessment and Plan: Continue insulin infusion Plan DVT prophylaxis: SCDs, patient is overdosed on rivaroxaban, aspirin, clopidogrel, bruising noted around central line, will hold off chemoprophylaxis at this time due to increase risk of bleeding Stress ulcer prophylaxis: Proton Nutrition: NPO for now Code Status: Full code Critical Care Time Spent: 51 minutes Due to a high probability of clinically significant, life threatening deterioration, the patient required my highest level of preparedness to intervene emergently and I personally spent this critical care time directly and personally managing the patient. This critical care time included obtaining a history; examining the patient; pulse oximetry; ordering and review of studies; arranging urgent treatment with development of a management plan; evaluation of patient's response to treatment; frequent reassessment; and discussions with other providers. It was exclusive of separately billable procedures and treating other patients and teaching time. Please see Assessment and Plan section and the rest of the note for further information on patient assessment and treatment This dictation may have been done utilizing a voice recognition system. Attempts have been made to correct errors. However, there may be uncorrected grammatical, spelling, and recognitions errors present. 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 She told the family just over life, cannot do it anymore. Patient took 10 each of her morning medications. She has a long list of multiple medications but the most concerning murmur amlodipine(calcium channel ryne), losartan, baclofen, aripiprazole, duloxetine, gabapentin, rivaroxaban, lamotrigine, clopidogrel, Tylenol. Poison Control was called from the ER, recommended insulin infusion for calcium channel ryne, as patient was hypotensive, along with altered mental status, patient was intubated and a central line was inserted in the ER. Patient received 3 L IV fluid bolus, was given multiple doses of calcium chloride and calcium gluconate. Transfer the ICU with insulin infusion and epinephrine infusion. Patient was started on vasopressin overnight which has since been discontinued. Patient also is on D5 NaCl IV fluids. Currently sedated with fentanyl and Versed infusion -CT brain with no acute intracranial abnormality -chest x-ray showed cardiomegaly with interstitial edema, persistent retrocardiac opacification each measuring represent atelectases and/or pneumonia Patient seen examined in the ICU this morning, remains intubated on CMV mode of ventilation, peep of 5, 35% FiO2. Sedated with fentanyl and Versed infusion. Remains on epinephrine infusion, off vasopressin infusion. Urine output has been, afebrile with adequate blood pressures and heart rate. Patient does not open her eyes, follows simple commands or withdraw to pain Review of Systems Review of Systems: ROS unobtainable: Yes unobtainable due to endotracheal tube, unobtainable due to medical condition and unobtainable due to mental status PMFSH Surgical History Surgical History Hx of left BKA Family History Family History Father Acute myocardial infarction Mother Diabetes mellitus Social History Social History Smoking status: Smoker, status unknown Tobacco type: cigarettes Second hand tobacco smoke exposure: Yes Alcohol intake: unknown Drinks per week: 0 Substance use: unknown Substance use type: does not use Do You Feel Safe in your Home?: Yes Lack of Transportation: No Lack of Food: Never True Current Housing: I Have Housing Concerned About Future Housing: No Difficulty Paying Gas/Electric Bills: No Difficulty Paying for Meds: No Currently Unemployed: No Education: Decline to Answer Difficulty w/ Childcare or Family Care: No Spiritual care concerns: Yes Meds Home Medications and Allergies Home Medications ?Medication ?Instructions ?Recorded ?Confirmed ?Type acetaminophen 325 mg tablet 325 mg PO 0900,1400,209902/13/25 04/15/25 History amlodipine 10 mg tablet 10 mg PO DAILY 02/13/25 04/15/25 History ascorbic acid (vitamin C) 500 mg 500 mg PO DAILY 02/13/25 04/15/25 History tablet (C-500) aspirin 81 mg tablet,delayed 81 mg PO DAILY 02/13/25 04/15/25 History release (Adult Low Dose Aspirin) atorvastatin 80 mg tablet 80 mg PO DAILY 02/13/25 04/15/25 History baclofen 10 mg tablet 10 mg PO TID PRN muscle spasm 02/13/25 04/15/25 History calcium carbonate (Super Calcium) 600 mg PO DAILY 02/13/25 04/15/25 History cholecalciferol (vitamin D3) 50 2,000 unit PO DAILY 02/13/25 04/15/25 History mcg (2,000 unit) capsule (Vitamin D3) clopidogrel 75 mg tablet 75 mg PO DAILY 02/13/25 04/15/25 History dapagliflozin propanediol 10 mg 10 mg PO DAILY 02/13/25 04/15/25 History tablet (Farxiga) duloxetine 60 mg capsule,delayed 60 mg PO QAM 02/13/25 04/15/25 History release ezetimibe 10 mg tablet 10 mg PO DAILY 02/13/25 04/15/25 History gabapentin 300 mg capsule 300 mg PO 0900,1400,209902/13/25 04/15/25 History hydralazine 50 mg tablet 50 mg PO 0900,1400,209902/13/25 04/15/25 History insulin aspart U-100 100 unit/mL 20 unit subcut TIDWM 02/13/25 04/15/25 History (3 mL) subcutaneous pen (Novolog FlexPen U-100 Insulin aspart) insulin glargine 100 45 unit subcut Q12H 02/13/25 04/15/25 History unit-lixisenatide 33 mcg/mL subcutaneous pen (Soliqua 100/33) lamotrigine 100 mg tablet 100 mg PO Q12H 02/13/25 04/15/25 History losartan 100 mg tablet 100 mg PO DAILY 02/13/25 04/15/25 History melatonin 5 mg tablet 5 mg PO HS 02/13/25 04/15/25 History multivitamin (Daily Multi-Vitamin 1 tablet PO DAILY 02/13/25 04/15/25 History tablet) rivaroxaban 2.5 mg tablet (Xarelto) 2.5 mg PO Q12H 02/13/25 04/15/25 History tamsulosin 0.4 mg capsule 0.4 mg PO HS #30 caps 02/18/25 04/15/25 Rx aripiprazole 5 mg tablet 5 mg PO DAILY 04/15/25 04/15/25 History sennosides 8.6 mg-docusate sodium 2 tab PO BID PRN constipation 04/15/25 04/15/25 History 50 mg tablet (Senokot-S) Allergies Allergy/AdvReac Type Severity Reaction Status Date / Time latex Allergy Unknown Unknown Verified 02/12/25 22:38 Vital Signs Vital Signs - 24 hr 04/14/25 19:40 04/14/25 19:45 04/14/25 19:45 Temperature 95.3 F L Pulse Rate 101 H 85 Respiratory Rate 14 Blood Pressure 99/47 L Pulse Oximetry 94 93 100 Oxygen Delivery Nasal Cannula Nasal Cannula Mechanical Ventilation Oxygen Flow Rate 4 4 Fraction of Inspired Oxygen 40 04/14/25 20:01 04/14/25 20:20 04/14/25 20:29 Temperature 96.0 F L Pulse Rate 84 62 Respiratory Rate 15 Blood Pressure Pulse Oximetry 95 98 Oxygen Delivery Mechanical Ventilation Oxygen Flow Rate Fraction of Inspired Oxygen 04/14/25 20:30 04/14/25 20:31 04/14/25 20:45 Temperature 95.9 F L 95.9 F L Pulse Rate 62 60 89 Respiratory Rate 15 15 Blood Pressure 106/42 L Pulse Oximetry 99 99 96 Oxygen Delivery Mechanical Ventilation Oxygen Flow Rate Fraction of Inspired Oxygen 40 04/14/25 20:46 04/14/25 20:47 04/14/25 21:00 Temperature 95.5 F L 95.5 F L 95.0 F L Pulse Rate 62 70 Respiratory Rate 15 17 Blood Pressure 122/43 L Pulse Oximetry 95 95 Oxygen Delivery Oxygen Flow Rate Fraction of Inspired Oxygen 04/14/25 21:02 04/14/25 21:10 04/14/25 21:15 Temperature 95.3 F L 95.3 F L 95.3 F L Pulse Rate 62 64 63 Respiratory Rate 15 18 13 Blood Pressure 109/41 L Pulse Oximetry 94 93 93 Oxygen Delivery Oxygen Flow Rate Fraction of Inspired Oxygen 04/14/25 21:16 04/14/25 21:30 04/14/25 21:31 Temperature 95.3 F L 95.1 F L 95.1 F L Pulse Rate 60 102 H 91 Respiratory Rate 15 20 15 Blood Pressure 114/40 L 125/41 L Pulse Oximetry 93 95 95 Oxygen Delivery Oxygen Flow Rate Fraction of Inspired Oxygen 04/14/25 21:47 04/14/25 21:53 04/14/25 22:00 Temperature 94.9 F L 95.0 F L Pulse Rate 88 93 Respiratory Rate 19 16 Blood Pressure Pulse Oximetry 94 95 95 Oxygen Delivery Mechanical Ventilation Oxygen Flow Rate Fraction of Inspired Oxygen 40 04/14/25 22:01 04/14/25 22:30 04/14/25 22:31 Temperature 95.0 F L 95.2 F L Pulse Rate 89 89 86 Respiratory Rate 17 Blood Pressure 116/40 L Pulse Oximetry 95 96 95 Oxygen Delivery Mechanical Ventilation Oxygen Flow Rate Fraction of Inspired Oxygen 40 04/14/25 22:33 04/14/25 22:43 04/14/25 22:45 Temperature 95.2 F L 95.2 F L 95.3 F L Pulse Rate 86 87 Respiratory Rate 16 14 Blood Pressure 109/40 L Pulse Oximetry 96 97 Oxygen Delivery Oxygen Flow Rate Fraction of Inspired Oxygen 04/14/25 22:46 04/14/25 23:00 04/14/25 23:01 Temperature 95.3 F L 95.5 F L 95.5 F L Pulse Rate 86 86 85 Respiratory Rate 15 14 15 Blood Pressure 114/42 L 115/40 L Pulse Oximetry 96 96 95 Oxygen Delivery Oxygen Flow Rate Fraction of Inspired Oxygen 04/14/25 23:17 04/14/25 23:32 04/15/25 00:00 Temperature 95.8 F L 96.1 F L Pulse Rate Respiratory Rate Blood Pressure Pulse Oximetry Oxygen Delivery Oxygen Flow Rate Fraction of Inspired Oxygen 40 04/15/25 00:05 04/15/25 00:07 04/15/25 00:12 Temperature 96 F L Pulse Rate 85 77 89 Respiratory Rate 17 Blood Pressure 114/49 L Pulse Oximetry 97 96 Oxygen Delivery Mechanical Ventilation Oxygen Flow Rate Fraction of Inspired Oxygen 35 04/15/25 00:16 04/15/25 00:16 04/15/25 00:16 Temperature 96.6 F L 96.6 F L Pulse Rate 70 Respiratory Rate 16 Blood Pressure 101/37 L Pulse Oximetry 96 Oxygen Delivery Mechanical Ventilation Oxygen Flow Rate Fraction of Inspired Oxygen 40 04/15/25 00:23 04/15/25 00:39 04/15/25 00:43 Temperature 96 F L Pulse Rate 85 54 L 48 L Respiratory Rate 17 Blood Pressure 114/49 L 81/37 L 83/41 L Pulse Oximetry 97 Oxygen Delivery Oxygen Flow Rate Fraction of Inspired Oxygen 04/15/25 00:46 04/15/25 00:50 04/15/25 00:56 Temperature Pulse Rate 56 L 55 L 60 Respiratory Rate Blood Pressure 100/37 L 108/37 L 113/39 L Pulse Oximetry Oxygen Delivery Oxygen Flow Rate Fraction of Inspired Oxygen 04/15/25 01:00 04/15/25 01:02 04/15/25 01:12 Temperature 96.2 F L Pulse Rate 61 61 70 Respiratory Rate 22 H Blood Pressure 111/40 L 111/40 L Pulse Oximetry 97 97 Oxygen Delivery Mechanical Ventilation Oxygen Flow Rate Fraction of Inspired Oxygen 35 04/15/25 01:15 04/15/25 01:30 04/15/25 01:30 Temperature 95.7 F L Pulse Rate 70 70 Respiratory Rate Blood Pressure 137/45 L 140/45 L Pulse Oximetry Oxygen Delivery Oxygen Flow Rate Fraction of Inspired Oxygen 04/15/25 01:46 04/15/25 02:00 04/15/25 02:00 Temperature 95.6 F L Pulse Rate 68 61 Respiratory Rate Blood Pressure 140/43 L 122/39 L Pulse Oximetry Oxygen Delivery Oxygen Flow Rate Fraction of Inspired Oxygen 04/15/25 02:00 04/15/25 02:00 04/15/25 02:21 Temperature 95.6 F L Pulse Rate 62 62 61 Respiratory Rate 17 Blood Pressure 122/39 L 118/38 L Pulse Oximetry 97 Oxygen Delivery Oxygen Flow Rate Fraction of Inspired Oxygen 04/15/25 02:21 04/15/25 02:30 04/15/25 02:46 Temperature 95.9 F L Pulse Rate 61 63 Respiratory Rate Blood Pressure 118/38 L 123/39 L Pulse Oximetry Oxygen Delivery Oxygen Flow Rate Fraction of Inspired Oxygen 04/15/25 03:00 04/15/25 03:00 04/15/25 03:03 Temperature 96.4 F L 96.3 F L Pulse Rate 62 62 Respiratory Rate 19 Blood Pressure 123/40 L 123/40 L Pulse Oximetry 98 Oxygen Delivery Oxygen Flow Rate Fraction of Inspired Oxygen 04/15/25 03:29 04/15/25 03:30 04/15/25 03:45 Temperature 97.1 F L Pulse Rate 62 60 Respiratory Rate Blood Pressure 117/35 L Pulse Oximetry 98 Oxygen Delivery Mechanical Ventilation Oxygen Flow Rate Fraction of Inspired Oxygen 35 04/15/25 04:00 04/15/25 04:00 04/15/25 04:00 Temperature 97.2 F L 97.2 F L Pulse Rate 61 59 L Respiratory Rate 19 Blood Pressure 129/38 L Pulse Oximetry 98 Oxygen Delivery Oxygen Flow Rate Fraction of Inspired Oxygen 04/15/25 04:00 04/15/25 04:00 04/15/25 04:01 Temperature Pulse Rate 61 Respiratory Rate Blood Pressure 129/38 L Pulse Oximetry Oxygen Delivery Mechanical Ventilation Oxygen Flow Rate Fraction of Inspired Oxygen 35 35 04/15/25 04:01 04/15/25 04:04 04/15/25 04:07 Temperature Pulse Rate 62 59 L 59 L Respiratory Rate Blood Pressure 129/38 L 129/38 L Pulse Oximetry 98 Oxygen Delivery Mechanical Ventilation Oxygen Flow Rate Fraction of Inspired Oxygen 35 04/15/25 04:50 04/15/25 04:51 04/15/25 05:00 Temperature 97.4 F L Pulse Rate 60 60 60 Respiratory Rate 18 Blood Pressure 158/48 H 158/48 H 151/47 H Pulse Oximetry 98 Oxygen Delivery Oxygen Flow Rate Fraction of Inspired Oxygen 04/15/25 05:01 04/15/25 05:02 04/15/25 05:19 Temperature Pulse Rate 59 L 58 L 63 Respiratory Rate Blood Pressure 151/47 H 151/48 H Pulse Oximetry 98 Oxygen Delivery Mechanical Ventilation Oxygen Flow Rate Fraction of Inspired Oxygen 35 04/15/25 05:30 04/15/25 05:30 04/15/25 06:00 Temperature Pulse Rate 59 L 59 L 59 L Respiratory Rate Blood Pressure 142/44 H 142/44 H 133/37 L Pulse Oximetry Oxygen Delivery Oxygen Flow Rate Fraction of Inspired Oxygen 04/15/25 06:00 04/15/25 06:00 04/15/25 06:06 Temperature 97.5 F L Pulse Rate 59 L 59 L 59 L Respiratory Rate 18 18 Blood Pressure 133/37 L Pulse Oximetry 99 Oxygen Delivery Oxygen Flow Rate Fraction of Inspired Oxygen 04/15/25 06:06 04/15/25 06:07 04/15/25 07:19 Temperature Pulse Rate 59 L 59 L 57 L Respiratory Rate 18 18 Blood Pressure 133/37 L Pulse Oximetry Oxygen Delivery Oxygen Flow Rate Fraction of Inspired Oxygen 04/15/25 07:30 04/15/25 07:31 04/15/25 07:45 Temperature Pulse Rate 57 L 57 L 58 L Respiratory Rate Blood Pressure 150/44 H 155/47 H Pulse Oximetry 99 Oxygen Delivery Mechanical Ventilation Oxygen Flow Rate Fraction of Inspired Oxygen 35 04/15/25 08:00 04/15/25 08:00 04/15/25 08:00 Temperature Pulse Rate 55 L 55 L 55 L Respiratory Rate 20 20 Blood Pressure 155/47 H Pulse Oximetry Oxygen Delivery Oxygen Flow Rate Fraction of Inspired Oxygen 04/15/25 08:00 04/15/25 08:00 04/15/25 08:00 Temperature Pulse Rate 55 L 55 L 55 L Respiratory Rate 20 Blood Pressure 155/47 H Pulse Oximetry 99 Oxygen Delivery Mechanical Ventilation Oxygen Flow Rate Fraction of Inspired Oxygen 35 04/15/25 08:00 04/15/25 08:00 Temperature 97.4 F L Pulse Rate 56 L Respiratory Rate 18 Blood Pressure 158/43 H Pulse Oximetry 99 Oxygen Delivery Oxygen Flow Rate Fraction of Inspired Oxygen 30 Exam Narrative: General: Intubated and sedated, in no acute distress HEENT:? Pupils equal and reactive but sluggish, sclera is clear Neck:? Supple Respiratory:? Clear to auscultation bilaterally, decreased at bases Rt > Lt, no wheezing, adequate air entry Cardiac:? S1-S2 is normal, bradycardia Abdomen:? 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 Intubated, sedated, does not open her eyes, follows simple commands a withdraws to pain stimulus Skin:? Multiple healing wounds on the bilateral lower extremity Psych:? Unable to assess at this time Results Labs 04/15/25 04:56 04/15/25 04:56 Labs: Short CBC 04/14/25 04/15/25 Range/Units 20:20 04:56 WBC 8.0 13.7 H (4.5-10.0) K/mm3 Hgb 10.8 L 9.9 L (12.0-15.0) g/dL Hct 35.0 L 32.5 L (37.0-47.0) % Plt Count 168 D 198 (150-375) k/mm3 BMP 04/14/25 04/14/25 04/14/25 20:20 22:29 22:29 Sodium 134 L 135 L Potassium 5.2 H 5.0 Chloride 102 103 Carbon Dioxide 21 L 22 BUN 28 H 28 H Creatinine 1.34 H 1.30 H Glucose 252 H 301 H Calcium 9.5 9.0 9.1 04/15/25 04:56 Sodium 132 L Potassium 5.1 H Chloride 103 Carbon Dioxide 22 BUN 28 H Creatinine 1.43 H Glucose 357 H Calcium 10.6 H Cardiac Enzymes 04/14/25 Range/Units 20:20 Troponin I < 0.012 (0.000-0.034) ng/mL Liver Function 04/14/25 04/15/25 Range/Units 20:20 04:56 Total Bilirubin 0.5 0.4 (0.2-1.3) mg/dL AST 37 H 38 H (14-36) U/L ALT 29 29 (6-35) U/L Alkaline Phosphatase 151 H 117 (38-126) U/L Albumin 4.0 3.3 L (3.5-5.1) g/dL Urine 04/14/25 Range/Units 20:20 Urine Color Yellow (Yellow) Urine Appearance Turbid H (Clear) Urine pH 5.5 (5.0-9.0) Ur Specific [place] 1.017 (1.001-1.035) Urine Protein 2+ H (Negative) mg/dL Urine Glucose (UA) 3+ H (Negative) mg/dL Quality VTE Prophylaxis VTE prophylaxis: mechanical ordered Hospitalist MIPS Advance Care Plan I have confirmed that the patient's Advanced Care Plan is present, code status is documented, or surrogate decision maker is listed in patient medical record.: Yes Medication Reconciliation I have utilized all available resources to obtain, update and review the patients current medications (includes all prescriptions, OTC, herbals, cannabis, and nutritional supplements).: Yes
[2025-04-15] MEDS: LACTATED RINGERS 500 ML IV CONT (08:55)
[2025-04-15] MEDS: INSULIN HUMAN REGULAR (*BKC) 100 UNITS in SODIUM CHLORIDE 0.9% IV 99 ML 29.9 UNITS IV CONT ×2 (10:01→13:05)
[2025-04-15] MEDS: EPINEPHrine HCL INJ 4 MG in DEXTROSE 5% IN WATER 250 ML 22.86 MG IV CONT (10:21)
[2025-04-15] MEDS: DOXYCYCLINE IV 100 MG in SODIUM CHLORIDE 0.9% IV 100 ML IVPB ×2 (12:06→20:17)
[2025-04-15 12:09] LABS: Alveolar/Arterial O2 Gradient 72.9 mmHg; Fractional Inspired Oxygen 30 %; HCO3 ABG 20.0 mEq/l (22.0-26.0); Oxygen Content ABG 15.0 %vol (16.0-22.0); Oxygen Saturation ABG 96.7 % (95.0-100.0); PCO2 ABG 39.9 mmHg (35.0-45.0); PO2 ABG 94.1 mmHg (80.0-100.0); PO2 FiO2 Ratio Arterial Blood 3.14 %
[2025-04-15 12:14] LABS: Liters per Minute 30.0 LPM; Site Drawn ARTLINE
[2025-04-15 12:15] LABS: Arterial Blood Gas Ventilator rate 20 /MIN
[2025-04-15 12:16] LABS: Arterial Blood Gas Tidal Volume 450 ml
--- NOTE | 2025-04-15 13:32 | WPDPROCEDUR ---
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
--- NOTE | 2025-04-15 15:49 | P.PNIM_ITS ---
Progress Note: A&P Assessment and Plan (1) Intentional overdose of calcium-channel ryne: Code(s): T46.1X2A - Poisoning by calcium-channel blockers, intentional self-harm, initial encounter Status: Acute Assessment and Plan: Patient with calcium channel ryne/amlodipine overdose causing severe hypotension, bradycardia -received multiple doses of calcium chloride and calcium gluconate -calcium level this morning 10.6 -patient currently on insulin infusion for calcium channel ryne, patient also on D5 1/2 NS infusion -continue epinephrine infusion, maintain MAP > 60 mmHg or SBP > 120 mmHg -Poison Control was notified and following and recommended insulin infusion -continue to monitor closely (2) Intentional drug overdose: Code(s): T50.902A - Poisoning by unspecified drugs, medicaments and biological substances, intentional self-harm, initial encounter Status: Acute Assessment and Plan: Patient overdosed on multiple other medications, most concerning are Tylenol, losartan, baclofen, aripiprazole, duloxetine, gabapentin, clopidogrel, rivar oxaban -INR is 1.3 this morning -received IV fluids, will give additional IV fluids -continue monitor urine output (3) Suicide attempt: Code(s): T14.91XA - Suicide attempt, initial encounter Status: Acute Assessment and Plan: Likely suicidal attempt/ideation - According the family she did tell them just over life, cannot do it anymore -once patient is medically stable will have care coordination and crisis management evaluate the patient for inpatient psych (4) Shock circulatory: Code(s): R57.9 - Shock, unspecified Status: Acute Assessment and Plan: Circulatory shock likely related to losartan, amlodipine and multiple other medications -continue vasopressors as needed -lactic acid trending down, 2.6 this morning, will give additional fluids (5) Respiratory failure: Code(s): J96.90 - Respiratory failure, unspecified, unspecified whether with hypoxia or hypercapnia Status: Acute Assessment and Plan: Acute respiratory failure likely related to altered mental status, aspiration pneumonia due to emesis upon arrival to the ER -continue CMV mode of ventilation, peep of 8, 35% FiO2 -ABGs and chest x-ray reviewed, ventilator adjusted -will add bronchodilators flow patient was wheezing earlier this morning -sedated with fentanyl, Versed, maintain RASS of 0 to -2, daily SBT and SAT (6) Aspiration pneumonia: Code(s): J69.0 - Pneumonitis due to inhalation of food and vomit Status: Acute Assessment and Plan: Patient had emesis with altered mental status, chest x-ray showed possible atelectasis versus pneumonia likely aspiration -continue cefepime and vancomycin (04/15) (7) Diabetes mellitus: Code(s): E11.9 - Type 2 diabetes mellitus without complications Status: Acute Assessment and Plan: Continue insulin infusion Subjective Date/time seen: 04/15/25 15:49 Interval history: Patient currently on insulin drip, fentanyl and epinephrine drip. Management As per ICU Review of Systems Review of Systems: ROS unobtainable: Yes unobtainable due to endotracheal tube, unobtainable due to medical condition and unobtainable due to mental status Exam Narrative: General: Intubated and sedated, in no acute distress HEENT:? Pupils equal and reactive but sluggish, sclera is clear Neck:? Supple Respiratory:? Clear to auscultation bilaterally, decreased at bases Rt > Lt, no wheezing, adequate air entry Cardiac:? S1-S2 is normal, bradycardia Abdomen:? 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 Intubated, sedated, does not open her eyes, follows simple commands a withdraws to pain stimulus Skin:? Multiple healing wounds on the bilateral lower extremity Psych:? Unable to assess at this time Objective Data Vital Signs Vital Signs: Vital Signs - 24 hr 04/14/25 19:40 04/14/25 19:45 04/14/25 19:45 Temperature 95.3 F L Pulse Rate 101 H 85 Respiratory Rate 14 Blood Pressure 99/47 L Pulse Oximetry 94 93 100 Oxygen Delivery Nasal Cannula Nasal Cannula Mechanical Ventilation Oxygen Flow Rate 4 4 Fraction of Inspired Oxygen 40 04/14/25 20:01 04/14/25 20:20 04/14/25 20:29 Temperature 96.0 F L Pulse Rate 84 62 Respiratory Rate 15 Blood Pressure Pulse Oximetry 95 98 Oxygen Delivery Mechanical Ventilation Oxygen Flow Rate Fraction of Inspired Oxygen 04/14/25 20:30 04/14/25 20:31 04/14/25 20:45 Temperature 95.9 F L 95.9 F L Pulse Rate 62 60 89 Respiratory Rate 15 15 Blood Pressure 106/42 L Pulse Oximetry 99 99 96 Oxygen Delivery Mechanical Ventilation Oxygen Flow Rate Fraction of Inspired Oxygen 40 04/14/25 20:46 04/14/25 20:47 04/14/25 21:00 Temperature 95.5 F L 95.5 F L 95.0 F L Pulse Rate 62 70 Respiratory Rate 15 17 Blood Pressure 122/43 L Pulse Oximetry 95 95 Oxygen Delivery Oxygen Flow Rate Fraction of Inspired Oxygen 04/14/25 21:02 04/14/25 21:10 04/14/25 21:15 Temperature 95.3 F L 95.3 F L 95.3 F L Pulse Rate 62 64 63 Respiratory Rate 15 18 13 Blood Pressure 109/41 L Pulse Oximetry 94 93 93 Oxygen Delivery Oxygen Flow Rate Fraction of Inspired Oxygen 04/14/25 21:16 04/14/25 21:30 04/14/25 21:31 Temperature 95.3 F L 95.1 F L 95.1 F L Pulse Rate 60 102 H 91 Respiratory Rate 15 20 15 Blood Pressure 114/40 L 125/41 L Pulse Oximetry 93 95 95 Oxygen Delivery Oxygen Flow Rate Fraction of Inspired Oxygen 04/14/25 21:47 04/14/25 21:53 04/14/25 22:00 Temperature 94.9 F L 95.0 F L Pulse Rate 88 93 Respiratory Rate 19 16 Blood Pressure Pulse Oximetry 94 95 95 Oxygen Delivery Mechanical Ventilation Oxygen Flow Rate Fraction of Inspired Oxygen 40 04/14/25 22:01 04/14/25 22:30 04/14/25 22:31 Temperature 95.0 F L 95.2 F L Pulse Rate 89 89 86 Respiratory Rate 17 Blood Pressure 116/40 L Pulse Oximetry 95 96 95 Oxygen Delivery Mechanical Ventilation Oxygen Flow Rate Fraction of Inspired Oxygen 40 04/14/25 22:33 04/14/25 22:43 04/14/25 22:45 Temperature 95.2 F L 95.2 F L 95.3 F L Pulse Rate 86 87 Respiratory Rate 16 14 Blood Pressure 109/40 L Pulse Oximetry 96 97 Oxygen Delivery Oxygen Flow Rate Fraction of Inspired Oxygen 04/14/25 22:46 04/14/25 23:00 04/14/25 23:01 Temperature 95.3 F L 95.5 F L 95.5 F L Pulse Rate 86 86 85 Respiratory Rate 15 14 15 Blood Pressure 114/42 L 115/40 L Pulse Oximetry 96 96 95 Oxygen Delivery Oxygen Flow Rate Fraction of Inspired Oxygen 04/14/25 23:17 04/14/25 23:32 04/15/25 00:00 Temperature 95.8 F L 96.1 F L Pulse Rate Respiratory Rate Blood Pressure Pulse Oximetry Oxygen Delivery Oxygen Flow Rate Fraction of Inspired Oxygen 40 04/15/25 00:05 04/15/25 00:07 04/15/25 00:12 Temperature 96 F L Pulse Rate 85 77 89 Respiratory Rate 17 Blood Pressure 114/49 L Pulse Oximetry 97 96 Oxygen Delivery Mechanical Ventilation Oxygen Flow Rate Fraction of Inspired Oxygen 35 04/15/25 00:16 04/15/25 00:16 04/15/25 00:16 Temperature 96.6 F L 96.6 F L Pulse Rate 70 Respiratory Rate 16 Blood Pressure 101/37 L Pulse Oximetry 96 Oxygen Delivery Mechanical Ventilation Oxygen Flow Rate Fraction of Inspired Oxygen 40 04/15/25 00:23 04/15/25 00:39 04/15/25 00:43 Temperature 96 F L Pulse Rate 85 54 L 48 L Respiratory Rate 17 Blood Pressure 114/49 L 81/37 L 83/41 L Pulse Oximetry 97 Oxygen Delivery Oxygen Flow Rate Fraction of Inspired Oxygen 04/15/25 00:46 04/15/25 00:50 04/15/25 00:56 Temperature Pulse Rate 56 L 55 L 60 Respiratory Rate Blood Pressure 100/37 L 108/37 L 113/39 L Pulse Oximetry Oxygen Delivery Oxygen Flow Rate Fraction of Inspired Oxygen 04/15/25 01:00 04/15/25 01:02 04/15/25 01:12 Temperature 96.2 F L Pulse Rate 61 61 70 Respiratory Rate 22 H Blood Pressure 111/40 L 111/40 L Pulse Oximetry 97 97 Oxygen Delivery Mechanical Ventilation Oxygen Flow Rate Fraction of Inspired Oxygen 35 04/15/25 01:15 04/15/25 01:30 04/15/25 01:30 Temperature 95.7 F L Pulse Rate 70 70 Respiratory Rate Blood Pressure 137/45 L 140/45 L Pulse Oximetry Oxygen Delivery Oxygen Flow Rate Fraction of Inspired Oxygen 04/15/25 01:46 04/15/25 02:00 04/15/25 02:00 Temperature 95.6 F L Pulse Rate 68 61 Respiratory Rate Blood Pressure 140/43 L 122/39 L Pulse Oximetry Oxygen Delivery Oxygen Flow Rate Fraction of Inspired Oxygen 04/15/25 02:00 04/15/25 02:00 04/15/25 02:21 Temperature 95.6 F L Pulse Rate 62 62 61 Respiratory Rate 17 Blood Pressure 122/39 L 118/38 L Pulse Oximetry 97 Oxygen Delivery Oxygen Flow Rate Fraction of Inspired Oxygen 04/15/25 02:21 04/15/25 02:30 04/15/25 02:46 Temperature 95.9 F L Pulse Rate 61 63 Respiratory Rate Blood Pressure 118/38 L 123/39 L Pulse Oximetry Oxygen Delivery Oxygen Flow Rate Fraction of Inspired Oxygen 04/15/25 03:00 04/15/25 03:00 04/15/25 03:03 Temperature 96.4 F L 96.3 F L Pulse Rate 62 62 Respiratory Rate 19 Blood Pressure 123/40 L 123/40 L Pulse Oximetry 98 Oxygen Delivery Oxygen Flow Rate Fraction of Inspired Oxygen 04/15/25 03:29 04/15/25 03:30 04/15/25 03:45 Temperature 97.1 F L Pulse Rate 62 60 Respiratory Rate Blood Pressure 117/35 L Pulse Oximetry 98 Oxygen Delivery Mechanical Ventilation Oxygen Flow Rate Fraction of Inspired Oxygen 35 04/15/25 04:00 04/15/25 04:00 04/15/25 04:00 Temperature 97.2 F L 97.2 F L Pulse Rate 61 59 L Respiratory Rate 19 Blood Pressure 129/38 L Pulse Oximetry 98 Oxygen Delivery Oxygen Flow Rate Fraction of Inspired Oxygen 04/15/25 04:00 04/15/25 04:00 04/15/25 04:01 Temperature Pulse Rate 61 Respiratory Rate Blood Pressure 129/38 L Pulse Oximetry Oxygen Delivery Mechanical Ventilation Oxygen Flow Rate Fraction of Inspired Oxygen 35 35 04/15/25 04:01 04/15/25 04:04 04/15/25 04:07 Temperature Pulse Rate 62 59 L 59 L Respiratory Rate Blood Pressure 129/38 L 129/38 L Pulse Oximetry 98 Oxygen Delivery Mechanical Ventilation Oxygen Flow Rate Fraction of Inspired Oxygen 35 04/15/25 04:50 04/15/25 04:51 04/15/25 05:00 Temperature 97.4 F L Pulse Rate 60 60 60 Respiratory Rate 18 Blood Pressure 158/48 H 158/48 H 151/47 H Pulse Oximetry 98 Oxygen Delivery Oxygen Flow Rate Fraction of Inspired Oxygen 04/15/25 05:01 04/15/25 05:02 04/15/25 05:19 Temperature Pulse Rate 59 L 58 L 63 Respiratory Rate Blood Pressure 151/47 H 151/48 H Pulse Oximetry 98 Oxygen Delivery Mechanical Ventilation Oxygen Flow Rate Fraction of Inspired Oxygen 35 04/15/25 05:30 04/15/25 05:30 04/15/25 06:00 Temperature Pulse Rate 59 L 59 L 59 L Respiratory Rate Blood Pressure 142/44 H 142/44 H 133/37 L Pulse Oximetry Oxygen Delivery Oxygen Flow Rate Fraction of Inspired Oxygen 04/15/25 06:00 04/15/25 06:00 04/15/25 06:06 Temperature 97.5 F L Pulse Rate 59 L 59 L 59 L Respiratory Rate 18 18 Blood Pressure 133/37 L Pulse Oximetry 99 Oxygen Delivery Oxygen Flow Rate Fraction of Inspired Oxygen 04/15/25 06:06 04/15/25 06:07 04/15/25 07:19 Temperature Pulse Rate 59 L 59 L 57 L Respiratory Rate 18 18 Blood Pressure 133/37 L Pulse Oximetry Oxygen Delivery Oxygen Flow Rate Fraction of Inspired Oxygen 04/15/25 07:30 04/15/25 07:31 04/15/25 07:45 Temperature Pulse Rate 57 L 57 L 58 L Respiratory Rate Blood Pressure 150/44 H 155/47 H Pulse Oximetry 99 Oxygen Delivery Mechanical Ventilation Oxygen Flow Rate Fraction of Inspired Oxygen 35 04/15/25 08:00 04/15/25 08:00 04/15/25 08:00 Temperature Pulse Rate 55 L 55 L 55 L Respiratory Rate 20 20 Blood Pressure 155/47 H Pulse Oximetry Oxygen Delivery Oxygen Flow Rate Fraction of Inspired Oxygen 04/15/25 08:00 04/15/25 08:00 04/15/25 08:00 Temperature Pulse Rate 55 L 55 L 55 L Respiratory Rate 20 Blood Pressure 155/47 H Pulse Oximetry 99 Oxygen Delivery Mechanical Ventilation Oxygen Flow Rate Fraction of Inspired Oxygen 35 04/15/25 08:00 04/15/25 08:00 04/15/25 08:10 Temperature 97.4 F L Pulse Rate 56 L 65 Respiratory Rate 18 18 Blood Pressure 158/43 H Pulse Oximetry 99 Oxygen Delivery Oxygen Flow Rate Fraction of Inspired Oxygen 30 04/15/25 08:52 04/15/25 09:00 04/15/25 10:00 Temperature 97.3 F L 97.2 F L Pulse Rate 55 L 56 L Respiratory Rate 20 20 Blood Pressure 158/41 H 164/49 H Pulse Oximetry 99 99 Oxygen Delivery Mechanical Ventilation Oxygen Flow Rate Fraction of Inspired Oxygen 30 04/15/25 10:00 04/15/25 10:00 04/15/25 10:00 Temperature Pulse Rate 55 L 55 L 55 L Respiratory Rate 20 20 Blood Pressure Pulse Oximetry Oxygen Delivery Oxygen Flow Rate Fraction of Inspired Oxygen 04/15/25 10:15 04/15/25 10:21 04/15/25 10:21 Temperature Pulse Rate 55 L 55 L 55 L Respiratory Rate Blood Pressure 164/40 H 164/49 H 164/49 H Pulse Oximetry Oxygen Delivery Oxygen Flow Rate Fraction of Inspired Oxygen 04/15/25 11:00 04/15/25 11:56 04/15/25 12:00 Temperature 97.0 F L Pulse Rate 53 L 51 L 52 L Respiratory Rate 20 Blood Pressure 158/42 H 107/32 L 111/33 L Pulse Oximetry 99 Oxygen Delivery Oxygen Flow Rate Fraction of Inspired Oxygen 04/15/25 12:00 04/15/25 12:00 04/15/25 12:00 Temperature Pulse Rate 52 L 52 L 52 L Respiratory Rate 20 20 Blood Pressure 111/33 L Pulse Oximetry Oxygen Delivery Oxygen Flow Rate Fraction of Inspired Oxygen 04/15/25 12:00 04/15/25 12:00 04/15/25 12:00 Temperature Pulse Rate 52 L 52 L Respiratory Rate 20 Blood Pressure Pulse Oximetry 99 Oxygen Delivery Mechanical Ventilation Oxygen Flow Rate Fraction of Inspired Oxygen 30 30 04/15/25 12:18 04/15/25 13:43 04/15/25 13:46 Temperature 96.9 F L Pulse Rate 52 L 51 L 53 L Respiratory Rate 20 Blood Pressure 108/33 L 110/33 L Pulse Oximetry 100 99 Oxygen Delivery Mechanical Ventilation Oxygen Flow Rate Fraction of Inspired Oxygen 30 04/15/25 14:00 04/15/25 14:00 04/15/25 14:00 Temperature Pulse Rate 55 L 55 L 55 L Respiratory Rate 20 Blood Pressure 110/33 L Pulse Oximetry Oxygen Delivery Oxygen Flow Rate Fraction of Inspired Oxygen 04/15/25 14:00 04/15/25 14:45 04/15/25 14:49 Temperature Pulse Rate 55 L 55 L 55 L Respiratory Rate 20 20 Blood Pressure Pulse Oximetry 99 Oxygen Delivery Mechanical Ventilation Oxygen Flow Rate Fraction of Inspired Oxygen 30 04/15/25 14:50 Temperature Pulse Rate 55 L Respiratory Rate Blood Pressure 110/33 L Pulse Oximetry Oxygen Delivery Oxygen Flow Rate Fraction of Inspired Oxygen Intake/Output Intake/Output: Intake & Output 04/12/25 04/13/25 04/14/25 04/15/25 23:59 23:59 23:59 23:59 Intake Total 2900 3094.1 Output Total 680 Balance 2900 2414.1 Meds/Results Medications: Active Medications Generic Name Dose Route Start Last Admin Trade Name Mishaq PRN Reason Stop Dose Admin Albuterol/Ipratropium 3 ml 04/15/25 07:30 04/15/25 14:44 Ipratropium 0.5 Mg/Albuterol Sulfate 2.5 Mg Ampul.Neb 3 Ml INHALATION 3 ml Q6HRT FARHANA Administration Dextrose/Sodium Chloride 1,000 mls @ 65 mls/hr 04/14/25 20:40 04/15/25 08:10 Dextrose 5% Sodium Chloride 0.45% IV CONT 65 mls/hr .[id number] FARHANA Administration Insulin Human Regular 100 100 mls @ 15.9 mls/hr 04/15/25 00:30 04/15/25 15:01 units/ Sodium Chloride IV CONT 15.9 units/hr .Q6H18M FARHANA 15.9 mls/hr Protocol Titration 15.9 UNITS/HR Cefepime HCl 2 gm/ Sodium 50 mls @ 100 mls/hr 04/15/25 02:00 04/15/25 13:44 Chloride IVPB 100 mls/hr Q12H FARHANA Administration Epinephrine HCl 4 mg/ Dextrose 254 mls @ 30.48 mls/hr 04/15/25 04:00 04/15/25 14:50 IV CONT 8 mcg/min .Q8H20M FARHANA 30.48 mls/hr Protocol Titration 8 MCG/MIN Fentanyl Citrate 2,500 mcg in 250 mls @ 2.5 mls/hr 04/15/25 05:10 04/15/25 14:00 Fentanyl 2,500 Mcg/Ns 250 Ml IV CONT 25 mcg/hr .Q72H FARHANA 2.5 mls/hr Protocol Titration 25 MCG/HR Midazolam HCl 100 mg in 100 mls @ 1 mls/hr 04/15/25 05:10 04/15/25 14:00 Versed 100 Mg/Ns 100 Ml IV CONT 1 mg/hr .Q72H FARHANA 1 mls/hr Protocol Titration 1 MG/HR Doxycycline Hyclate 100 mg/ 100 mls @ 100 mls/hr 04/15/25 10:15 04/15/25 13:06 Sodium Chloride IVPB Infused Q12HR FARHANA Infusion Multi-Ingred Cream/Lotion/Oil/Oint 1 applic 04/15/25 09:00 04/15/25 08:12 Mineral Oil/White Petrolatum Ointment EACH EYE 1 applic Q12HR FARHANA Administration Pantoprazole Sodium 40 mg 04/15/25 08:00 04/15/25 08:36 Pantoprazole Sodium Iv 40 Mg Vial IV PUSH 40 mg QAM FARHANA Administration Sodium Chloride 10 ml 04/15/25 06:00 04/15/25 14:51 Central Line Flush IV PUSH 10 ml Q8HR FARHANA Administration Sodium Chloride 20 ml 04/15/25 02:07 Central Line Flush IV PUSH PRN PRN after blood draws Radiology Results: ITS Impressions Abdomen X-Ray 04/14/25 20:46 IMPRESSION: 1. Endotracheal tube and orogastric tube in expected positions. 2. Decreased left lung volume with elevation the left hemidiaphragm and patchy airspace opacities throughout the left lung which could represent atelectasis and/or pneumonia. 3. Pulmonary vascular congestion with increased interstitial pattern in the right perihilar region which could represent mild pulmonary edema and/or pneumonia. Chest X-Ray 04/15/25 07:42 Impression: 1: Cardiomegaly with interstitial edema. 2: Persistent retrocardiac opacification which may represent atelectasis and/or pneumonia. Head CT 04/15/25 08:50 IMPRESSION: 1. No acute intracranial abnormality. Labs Labs: Laboratory Results - last 24 hr 04/14/25 04/14/25 04/14/25 20:20 20:21 20:29 WBC 8.0 RBC 3.76 L Hgb 10.8 L Hct 35.0 L MCV 93.1 MCH 28.7 MCHC 30.9 L RDW 15.3 H Plt Count 168 D MPV 10.2 Immature Gran % (Auto) 0.5 Neut % (Auto) 65.5 Lymph % (Auto) 21.0 [place] % (Auto) 10.8 H Eos % (Auto) 1.5 Baso % (Auto) 0.7 Lymph # (Auto) 1.69 [place] # (Auto) 0.9 H Eos # (Auto) 0.1 Baso # (Auto) 0.1 Abs Immat Gran (auto) 0.04 H Absolute Neuts (auto) 5.3 Absolute Nucleated RBC 0.000 Nucleated RBC % 0.0 PT 22.4 H INR 2.0 APTT 41.3 H Puncture Site ABG pH ABG pCO2 ABG pO2 ABG PO2/FiO2 Ratio ABG HCO3 ABG O2 Saturation ABG O2 Content ABG Base Excess A-a Gradient Oxyhemoglobin Carboxyhemoglobin Methemoglobin Reduced Hemoglobin Total Hemoglobin O2 Delivery Device O2 Liters/Min Minute Volume Vent Rate Vent Mode FiO2 Tidal Volume PEEP Peak Inspir Pressure Pressure Support Sodium 134 L Potassium 5.2 H Chloride 102 Carbon Dioxide 21 L Anion Gap 11 BUN 28 H Creatinine 1.34 H Estim Creat Clear Calc 55 Estimated GFR 39 L Glucose 252 H POC Capillary Glucose Lactic Acid 3.7 H Calcium 9.5 Magnesium 2.4 H Total Bilirubin 0.5 AST 37 H ALT 29 Alkaline Phosphatase 151 H Troponin I < 0.012 Total Protein 7.1 Albumin 4.0 Lipase 85 TSH (Reflex) 2.030 Urine Color Yellow Urine Appearance Turbid H Urine pH 5.5 Ur Specific [place] 1.017 Urine Protein 2+ H Urine Glucose (UA) 3+ H Urine Ketones Negative Ur Blood (Man) Negative Urine Nitrate Negative Urine Bilirubin Negative Urine Urobilinogen 0.2 Leukocyte Esterase Rfl 3+ H Urine RBC 0-2 Urine WBC >100 H Ur Squamous Epith Cells None seen Urine Bacteria 4+ Urine Casts 0-2 Nasal MRSA (PCR) Salicylates Urine Opiates Screen Negative Urine Methadone Screen Negative Acetaminophen 100 H Ur Barbiturates Screen Negative Ur Phencyclidine Scrn Negative Ur Amphetamine Screen Negative U Benzodiazepines Scrn Negative Urine Cocaine Screen Negative U Cannabinoids Screen Negative Ethyl Alcohol < 10 Influenza A (RT-PCR) Negative Influenza B (RT-PCR) Negative RSV (RT-PCR) Negative SARS-CoV-2 RNA (RT-PCR) Negative 04/14/25 04/14/25 04/14/25 20:34 21:20 22:29 WBC RBC Hgb Hct MCV MCH MCHC RDW Plt Count MPV Immature Gran % (Auto) Neut % (Auto) Lymph % (Auto) [place] % (Auto) Eos % (Auto) Baso % (Auto) Lymph # (Auto) [place] # (Auto) Eos # (Auto) Baso # (Auto) Abs Immat Gran (auto) Absolute Neuts (auto) Absolute Nucleated RBC Nucleated RBC % PT INR APTT Puncture Site Left radial ABG pH 7.248 L* ABG pCO2 40.9 ABG pO2 307.9 H ABG PO2/FiO2 Ratio 3.08 ABG HCO3 17.5 L ABG O2 Saturation 99.6 ABG O2 Content 16.3 ABG Base Excess -9.2 A-a Gradient 364.2 Oxyhemoglobin 99.3 Carboxyhemoglobin 0.0 Methemoglobin 0.5 Reduced Hemoglobin 0.2 Total Hemoglobin 11.1 L O2 Delivery Device Ventilator O2 Liters/Min Not Reportable Minute Volume Not Reportable Vent Rate 15 Vent Mode Cmv FiO2 100 Tidal Volume 450 PEEP 5 Peak Inspir Pressure Not Reportable Pressure Support Not Reportable Sodium 135 L Potassium 5.0 Chloride 103 Carbon Dioxide 22 Anion Gap 10 BUN 28 H Creatinine 1.30 H Estim Creat Clear Calc 56 Estimated GFR 41 L Glucose 301 H POC Capillary Glucose 246 H Lactic Acid Calcium 9.0 Magnesium Total Bilirubin AST ALT Alkaline Phosphatase Troponin I Total Protein Albumin Lipase TSH (Reflex) Urine Color Urine Appearance Urine pH Ur Specific [place] Urine Protein Urine Glucose (UA) Urine Ketones Ur Blood (Man) Urine Nitrate Urine Bilirubin Urine Urobilinogen Leukocyte Esterase Rfl Urine RBC Urine WBC Ur Squamous Epith Cells Urine Bacteria Urine Casts Nasal MRSA (PCR) Salicylates Urine Opiates Screen Urine Methadone Screen Acetaminophen Ur Barbiturates Screen Ur Phencyclidine Scrn Ur Amphetamine Screen U Benzodiazepines Scrn Urine Cocaine Screen U Cannabinoids Screen Ethyl Alcohol Influenza A (RT-PCR) Influenza B (RT-PCR) RSV (RT-PCR) SARS-CoV-2 RNA (RT-PCR) 04/14/25 04/14/25 04/14/25 22:29 22:42 22:50 WBC RBC Hgb Hct MCV MCH MCHC RDW Plt Count MPV Immature Gran % (Auto) Neut % (Auto) Lymph % (Auto) [place] % (Auto) Eos % (Auto) Baso % (Auto) Lymph # (Auto) [place] # (Auto) Eos # (Auto) Baso # (Auto) Abs Immat Gran (auto) Absolute Neuts (auto) Absolute Nucleated RBC Nucleated RBC % PT INR APTT Puncture Site ABG pH ABG pCO2 ABG pO2 ABG PO2/FiO2 Ratio ABG HCO3 ABG O2 Saturation ABG O2 Content ABG Base Excess A-a Gradient Oxyhemoglobin Carboxyhemoglobin Methemoglobin Reduced Hemoglobin Total Hemoglobin O2 Delivery Device O2 Liters/Min Minute Volume Vent Rate Vent Mode FiO2 Tidal Volume PEEP Peak Inspir Pressure Pressure Support Sodium Potassium Chloride Carbon Dioxide Anion Gap BUN Creatinine Estim Creat Clear Calc Estimated GFR Glucose POC Capillary Glucose 284 H Lactic Acid 2.8 H Calcium 9.1 Magnesium Total Bilirubin AST ALT Alkaline Phosphatase Troponin I Total Protein Albumin Lipase TSH (Reflex) Urine Color Urine Appearance Urine pH Ur Specific [place] Urine Protein Urine Glucose (UA) Urine Ketones Ur Blood (Man) Urine Nitrate Urine Bilirubin Urine Urobilinogen Leukocyte Esterase Rfl Urine RBC Urine WBC Ur Squamous Epith Cells Urine Bacteria Urine Casts Nasal MRSA (PCR) Salicylates 1.4 L Urine Opiates Screen Urine Methadone Screen Acetaminophen 72 H Ur Barbiturates Screen Ur Phencyclidine Scrn Ur Amphetamine Screen U Benzodiazepines Scrn Urine Cocaine Screen U Cannabinoids Screen Ethyl Alcohol Influenza A (RT-PCR) Influenza B (RT-PCR) RSV (RT-PCR) SARS-CoV-2 RNA (RT-PCR) 04/14/25 04/14/25 04/15/25 23:34 23:38 00:54 WBC RBC Hgb Hct MCV MCH MCHC RDW Plt Count MPV Immature Gran % (Auto) Neut % (Auto) Lymph % (Auto) [place] % (Auto) Eos % (Auto) Baso % (Auto) Lymph # (Auto) [place] # (Auto) Eos # (Auto) Baso # (Auto) Abs Immat Gran (auto) Absolute Neuts (auto) Absolute Nucleated RBC Nucleated RBC % PT INR APTT Puncture Site ABG pH ABG pCO2 ABG pO2 ABG PO2/FiO2 Ratio ABG HCO3 ABG O2 Saturation ABG O2 Content ABG Base Excess A-a Gradient Oxyhemoglobin Carboxyhemoglobin Methemoglobin Reduced Hemoglobin Total Hemoglobin O2 Delivery Device O2 Liters/Min Minute Volume Vent Rate Vent Mode FiO2 Tidal Volume PEEP Peak Inspir Pressure Pressure Support Sodium Potassium Chloride Carbon Dioxide Anion Gap BUN Creatinine Estim Creat Clear Calc Estimated GFR Glucose POC Capillary Glucose 270 H 277 H Lactic Acid Calcium Magnesium Total Bilirubin AST ALT Alkaline Phosphatase Troponin I Total Protein Albumin Lipase TSH (Reflex) Urine Color Urine Appearance Urine pH Ur Specific [place] Urine Protein Urine Glucose (UA) Urine Ketones Ur Blood (Man) Urine Nitrate Urine Bilirubin Urine Urobilinogen Leukocyte Esterase Rfl Urine RBC Urine WBC Ur Squamous Epith Cells Urine Bacteria Urine Casts Nasal MRSA (PCR) Not detected Salicylates Urine Opiates Screen Urine Methadone Screen Acetaminophen Ur Barbiturates Screen Ur Phencyclidine Scrn Ur Amphetamine Screen U Benzodiazepines Scrn Urine Cocaine Screen U Cannabinoids Screen Ethyl Alcohol Influenza A (RT-PCR) Influenza B (RT-PCR) RSV (RT-PCR) SARS-CoV-2 RNA (RT-PCR) 04/15/25 04/15/25 04/15/25 01:58 03:00 03:09 WBC RBC Hgb Hct MCV MCH MCHC RDW Plt Count MPV Immature Gran % (Auto) Neut % (Auto) Lymph % (Auto) [place] % (Auto) Eos % (Auto) Baso % (Auto) Lymph # (Auto) [place] # (Auto) Eos # (Auto) Baso # (Auto) Abs Immat Gran (auto) Absolute Neuts (auto) Absolute Nucleated RBC Nucleated RBC % PT INR APTT Puncture Site Right radial ABG pH 7.247 L* ABG pCO2 50.0 H ABG pO2 94.8 ABG PO2/FiO2 Ratio 2.71 ABG HCO3 21.3 L ABG O2 Saturation 96.0 ABG O2 Content 15.0 L ABG Base Excess -6.0 A-a Gradient 96.6 Oxyhemoglobin 95.9 Carboxyhemoglobin Methemoglobin Reduced Hemoglobin Total Hemoglobin 11.0 L O2 Delivery Device Ventilator O2 Liters/Min Not Reportable Minute Volume Not Reportable Vent Rate 15 Vent Mode Assist control FiO2 35 Tidal Volume 450 PEEP 5 Peak Inspir Pressure Not Reportable Pressure Support Not Reportable Sodium Potassium Chloride Carbon Dioxide Anion Gap BUN Creatinine Estim Creat Clear Calc Estimated GFR Glucose POC Capillary Glucose 304 H 331 H Lactic Acid Calcium Magnesium Total Bilirubin AST ALT Alkaline Phosphatase Troponin I Total Protein Albumin Lipase TSH (Reflex) Urine Color Urine Appearance Urine pH Ur Specific [place] Urine Protein Urine Glucose (UA) Urine Ketones Ur Blood (Man) Urine Nitrate Urine Bilirubin Urine Urobilinogen Leukocyte Esterase Rfl Urine RBC Urine WBC Ur Squamous Epith Cells Urine Bacteria Urine Casts Nasal MRSA (PCR) Salicylates Urine Opiates Screen Urine Methadone Screen Acetaminophen Ur Barbiturates Screen Ur Phencyclidine Scrn Ur Amphetamine Screen U Benzodiazepines Scrn Urine Cocaine Screen U Cannabinoids Screen Ethyl Alcohol Influenza A (RT-PCR) Influenza B (RT-PCR) RSV (RT-PCR) SARS-CoV-2 RNA (RT-PCR) 04/15/25 04/15/25 04/15/25 03:59 04:56 04:59 WBC 13.7 H RBC 3.39 L Hgb 9.9 L Hct 32.5 L MCV 95.9 MCH 29.2 MCHC 30.5 L RDW 15.6 H Plt Count 198 MPV 9.7 Immature Gran % (Auto) 0.5 Neut % (Auto) 87.1 H Lymph % (Auto) 5.5 L [place] % (Auto) 6.7 Eos % (Auto) 0.0 Baso % (Auto) 0.2 Lymph # (Auto) 0.75 L [place] # (Auto) 0.9 H Eos # (Auto) 0.0 Baso # (Auto) 0.0 Abs Immat Gran (auto) 0.07 H Absolute Neuts (auto) 11.9 H Absolute Nucleated RBC 0.000 Nucleated RBC % 0.0 PT 16.7 H D INR 1.3 APTT Puncture Site ABG pH ABG pCO2 ABG pO2 ABG PO2/FiO2 Ratio ABG HCO3 ABG O2 Saturation ABG O2 Content ABG Base Excess A-a Gradient Oxyhemoglobin Carboxyhemoglobin Methemoglobin Reduced Hemoglobin Total Hemoglobin O2 Delivery Device O2 Liters/Min Minute Volume Vent Rate Vent Mode FiO2 Tidal Volume PEEP Peak Inspir Pressure Pressure Support Sodium 132 L Potassium 5.1 H Chloride 103 Carbon Dioxide 22 Anion Gap 7 BUN 28 H Creatinine 1.43 H Estim Creat Clear Calc 50 Estimated GFR 37 L Glucose 357 H POC Capillary Glucose 350 H 361 H Lactic Acid 2.6 H Calcium 10.6 H Magnesium 2.3 Total Bilirubin 0.4 AST 38 H ALT 29 Alkaline Phosphatase 117 Troponin I Total Protein 6.1 L Albumin 3.3 L Lipase TSH (Reflex) Urine Color Urine Appearance Urine pH Ur Specific [place] Urine Protein Urine Glucose (UA) Urine Ketones Ur Blood (Man) Urine Nitrate Urine Bilirubin Urine Urobilinogen Leukocyte Esterase Rfl Urine RBC Urine WBC Ur Squamous Epith Cells Urine Bacteria Urine Casts Nasal MRSA (PCR) Salicylates Urine Opiates Screen Urine Methadone Screen Acetaminophen Ur Barbiturates Screen Ur Phencyclidine Scrn Ur Amphetamine Screen U Benzodiazepines Scrn Urine Cocaine Screen U Cannabinoids Screen Ethyl Alcohol Influenza A (RT-PCR) Influenza B (RT-PCR) RSV (RT-PCR) SARS-CoV-2 RNA (RT-PCR) 04/15/25 04/15/25 04/15/25 06:04 07:03 08:00 WBC RBC Hgb Hct MCV MCH MCHC RDW Plt Count MPV Immature Gran % (Auto) Neut % (Auto) Lymph % (Auto) [place] % (Auto) Eos % (Auto) Baso % (Auto) Lymph # (Auto) [place] # (Auto) Eos # (Auto) Baso # (Auto) Abs Immat Gran (auto) Absolute Neuts (auto) Absolute Nucleated RBC Nucleated RBC % PT INR APTT Puncture Site ABG pH ABG pCO2 ABG pO2 ABG PO2/FiO2 Ratio ABG HCO3 ABG O2 Saturation ABG O2 Content ABG Base Excess A-a Gradient Oxyhemoglobin Carboxyhemoglobin Methemoglobin Reduced Hemoglobin Total Hemoglobin O2 Delivery Device O2 Liters/Min Minute Volume Vent Rate Vent Mode FiO2 Tidal Volume PEEP Peak Inspir Pressure Pressure Support Sodium Potassium Chloride Carbon Dioxide Anion Gap BUN Creatinine Estim Creat Clear Calc Estimated GFR Glucose POC Capillary Glucose 303 H 314 H 321 H Lactic Acid Calcium Magnesium Total Bilirubin AST ALT Alkaline Phosphatase Troponin I Total Protein Albumin Lipase TSH (Reflex) Urine Color Urine Appearance Urine pH Ur Specific [place] Urine Protein Urine Glucose (UA) Urine Ketones Ur Blood (Man) Urine Nitrate Urine Bilirubin Urine Urobilinogen Leukocyte Esterase Rfl Urine RBC Urine WBC Ur Squamous Epith Cells Urine Bacteria Urine Casts Nasal MRSA (PCR) Salicylates Urine Opiates Screen Urine Methadone Screen Acetaminophen Ur Barbiturates Screen Ur Phencyclidine Scrn Ur Amphetamine Screen U Benzodiazepines Scrn Urine Cocaine Screen U Cannabinoids Screen Ethyl Alcohol Influenza A (RT-PCR) Influenza B (RT-PCR) RSV (RT-PCR) SARS-CoV-2 RNA (RT-PCR) 04/15/25 04/15/25 04/15/25 08:58 09:59 10:59 WBC RBC Hgb Hct MCV MCH MCHC RDW Plt Count MPV Immature Gran % (Auto) Neut % (Auto) Lymph % (Auto) [place] % (Auto) Eos % (Auto) Baso % (Auto) Lymph # (Auto) [place] # (Auto) Eos # (Auto) Baso # (Auto) Abs Immat Gran (auto) Absolute Neuts (auto) Absolute Nucleated RBC Nucleated RBC % PT INR APTT Puncture Site ABG pH ABG pCO2 ABG pO2 ABG PO2/FiO2 Ratio ABG HCO3 ABG O2 Saturation ABG O2 Content ABG Base Excess A-a Gradient Oxyhemoglobin Carboxyhemoglobin Methemoglobin Reduced Hemoglobin Total Hemoglobin O2 Delivery Device O2 Liters/Min Minute Volume Vent Rate Vent Mode FiO2 Tidal Volume PEEP Peak Inspir Pressure Pressure Support Sodium Potassium Chloride Carbon Dioxide Anion Gap BUN Creatinine Estim Creat Clear Calc Estimated GFR Glucose POC Capillary Glucose 271 H 271 H 238 H Lactic Acid Calcium Magnesium Total Bilirubin AST ALT Alkaline Phosphatase Troponin I Total Protein Albumin Lipase TSH (Reflex) Urine Color Urine Appearance Urine pH Ur Specific [place] Urine Protein Urine Glucose (UA) Urine Ketones Ur Blood (Man) Urine Nitrate Urine Bilirubin Urine Urobilinogen Leukocyte Esterase Rfl Urine RBC Urine WBC Ur Squamous Epith Cells Urine Bacteria Urine Casts Nasal MRSA (PCR) Salicylates Urine Opiates Screen Urine Methadone Screen Acetaminophen Ur Barbiturates Screen Ur Phencyclidine Scrn Ur Amphetamine Screen U Benzodiazepines Scrn Urine Cocaine Screen U Cannabinoids Screen Ethyl Alcohol Influenza A (RT-PCR) Influenza B (RT-PCR) RSV (RT-PCR) SARS-CoV-2 RNA (RT-PCR) 04/15/25 04/15/25 04/15/25 12:00 12:06 13:03 WBC RBC Hgb Hct MCV MCH MCHC RDW Plt Count MPV Immature Gran % (Auto) Neut % (Auto) Lymph % (Auto) [place] % (Auto) Eos % (Auto) Baso % (Auto) Lymph # (Auto) [place] # (Auto) Eos # (Auto) Baso # (Auto) Abs Immat Gran (auto) Absolute Neuts (auto) Absolute Nucleated RBC Nucleated RBC % PT INR APTT Puncture Site Artline ABG pH 7.317 L ABG pCO2 39.9 ABG pO2 94.1 ABG PO2/FiO2 Ratio 3.14 ABG HCO3 20.0 L ABG O2 Saturation 96.7 ABG O2 Content 15.0 L ABG Base Excess -5.7 A-a Gradient 72.9 Oxyhemoglobin 96.8 Carboxyhemoglobin Methemoglobin Reduced Hemoglobin Total Hemoglobin 10.9 L O2 Delivery Device Ventilator O2 Liters/Min 30.0 Minute Volume Not Reportable Vent Rate 20 Vent Mode Cmv FiO2 30 Tidal Volume 450 PEEP 8 Peak Inspir Pressure Not Reportable Pressure Support Not Reportable Sodium Potassium Chloride Carbon Dioxide Anion Gap BUN Creatinine Estim Creat Clear Calc Estimated GFR Glucose POC Capillary Glucose 221 H 203 H Lactic Acid Calcium Magnesium Total Bilirubin AST ALT Alkaline Phosphatase Troponin I Total Protein Albumin Lipase TSH (Reflex) Urine Color Urine Appearance Urine pH Ur Specific [place] Urine Protein Urine Glucose (UA) Urine Ketones Ur Blood (Man) Urine Nitrate Urine Bilirubin Urine Urobilinogen Leukocyte Esterase Rfl Urine RBC Urine WBC Ur Squamous Epith Cells Urine Bacteria Urine Casts Nasal MRSA (PCR) Salicylates Urine Opiates Screen Urine Methadone Screen Acetaminophen Ur Barbiturates Screen Ur Phencyclidine Scrn Ur Amphetamine Screen U Benzodiazepines Scrn Urine Cocaine Screen U Cannabinoids Screen Ethyl Alcohol Influenza A (RT-PCR) Influenza B (RT-PCR) RSV (RT-PCR) SARS-CoV-2 RNA (RT-PCR) 04/15/25 04/15/25 14:04 14:55 WBC RBC Hgb Hct MCV MCH MCHC RDW Plt Count MPV Immature Gran % (Auto) Neut % (Auto) Lymph % (Auto) [place] % (Auto) Eos % (Auto) Baso % (Auto) Lymph # (Auto) [place] # (Auto) Eos # (Auto) Baso # (Auto) Abs Immat Gran (auto) Absolute Neuts (auto) Absolute Nucleated RBC Nucleated RBC % PT INR APTT Puncture Site ABG pH ABG pCO2 ABG pO2 ABG PO2/FiO2 Ratio ABG HCO3 ABG O2 Saturation ABG O2 Content ABG Base Excess A-a Gradient Oxyhemoglobin Carboxyhemoglobin Methemoglobin Reduced Hemoglobin Total Hemoglobin O2 Delivery Device O2 Liters/Min Minute Volume Vent Rate Vent Mode FiO2 Tidal Volume PEEP Peak Inspir Pressure Pressure Support Sodium Potassium Chloride Carbon Dioxide Anion Gap BUN Creatinine Estim Creat Clear Calc Estimated GFR Glucose POC Capillary Glucose 168 H 169 H Lactic Acid Calcium Magnesium Total Bilirubin AST ALT Alkaline Phosphatase Troponin I Total Protein Albumin Lipase TSH (Reflex) Urine Color Urine Appearance Urine pH Ur Specific [place] Urine Protein Urine Glucose (UA) Urine Ketones Ur Blood (Man) Urine Nitrate Urine Bilirubin Urine Urobilinogen Leukocyte Esterase Rfl Urine RBC Urine WBC Ur Squamous Epith Cells Urine Bacteria Urine Casts Nasal MRSA (PCR) Salicylates Urine Opiates Screen Urine Methadone Screen Acetaminophen Ur Barbiturates Screen Ur Phencyclidine Scrn Ur Amphetamine Screen U Benzodiazepines Scrn Urine Cocaine Screen U Cannabinoids Screen Ethyl Alcohol Influenza A (RT-PCR) Influenza B (RT-PCR) RSV (RT-PCR) SARS-CoV-2 RNA (RT-PCR) Quality VTE Prophylaxis VTE prophylaxis: mechanical ordered Hospitalist MIPS Advance Care Plan I have confirmed that the patient's Advanced Care Plan is present, code status is documented, or surrogate decision maker is listed in patient medical record.: Yes Medication Reconciliation I have utilized all available resources to obtain, update and review the patients current medications (includes all prescriptions, OTC, herbals, cannabis, and nutritional supplements).: Yes
[2025-04-15] MEDS: EPINEPHrine HCL INJ 4 MG in DEXTROSE 5% IN WATER 250 ML 30.48 MG IV CONT (20:16)
--- NOTE | 2025-04-15 21:55 | PC.NURSE ---
Poison Control updated on patient condition. Patient remains stable at this time. No change from poison control at this time. Will continue to monitor.
[2025-04-16] VITALS (30 sets, daily range): BP systolic 121–148; BP diastolic 39–50; PULSE 47–67; RESP 18–20; TEMP 36–36.4; O2SAT 93–100
[2025-04-16] MEDS: IPRATROPIUM 0.5 MG/ALBUTEROL SULFATE 2.5 MG AMPUL.NEB 3 ML INHALATION ×4 (01:39→20:28)
[2025-04-16] MEDS: CEFEPIME 2 GM in SODIUM CHLORIDE 0.9% IV 50 ML 100 ML IVPB ×2 (03:02→14:27)
[2025-04-16] MEDS: SODIUM CHLORIDE 0.9% IV 1,000 ML 10 ML (03:41)
[2025-04-16 04:57] LABS: Hematocrit 31.1 % (37.0-47.0); Hemoglobin 9.9 g/dL (12.0-15.0); Immature Granulocyte Percent A 0.2 % (0-0.5); Lymphocytes Absolute Auto 1.66 K/mm3 (0.9-3.2); Mean Corpuscular HGB Conc 31.8 g/dl (32-36); Mean Corpuscular Hemoglobin 29.3 pg (26-34); Mean Corpuscular Volume 92.0 fl (80-100); Nucleated Red Blood Cells Absolute Auto 0.000 K/mm3 (0.0-0.012); Nucleated Red Blood Cells Perc 0.0 % (0.0-0.2); Platelet Count Result 159 k/mm3 (150-375); Red Blood Count 3.38 M/mm3 (4.2-5.4); White Blood Count 12.6 K/mm3 (4.5-10.0)
[2025-04-16 05:07] LABS: Ammonia < 9 umol/L (9-30)
[2025-04-16 05:24] LABS: Alanine Aminotransferase 25 U/L (6-35); Albumin Level 3.1 g/dL (3.5-5.1); Alkaline Phosphatase 115 U/L (38-126); Anion Gap 6 mmol/L (4-12); Aspartate Amino Transferase 36 U/L (14-36); Bilirubin,Total 0.2 mg/dL (0.2-1.3); Blood Urea Nitrogen 30 mg/dL (7-17); Calcium 9.7 mg/dL (8.4-10.2); Carbon Dioxide 21 mmol/L (22-30); Chloride 105 mmol/L (98-107); Estimated CRCL calculation 54 ml/min; Estimated Glomerular Filt Rate 39; Glucose 215 mg/dL (65-110); Magnesium 2.4 mg/dL (1.6-2.3); Potassium 5.2 mmol/L (3.4-5.0); Sodium 132 mmol/L (137-145); Total Protein 5.7 g/dL (6.3-8.2)
[2025-04-16] MEDS: CENTRAL LINE FLUSH 10 ML IV PUSH ×3 (05:26→20:10)
[2025-04-16 05:57] LABS: Carboxyhemoglobin 0.3 % THb (0-2.0); Fractional Inspired Oxygen 30 %; HCO3 ABG 21.3 mEq/l (22.0-26.0); Methemoglobin ABG 0.1 %THb (0-1.5); PCO2 ABG 30.7 mmHg (35.0-45.0); Reduced Hemoglobin 1.7 %THb (0-5.0); Site Drawn ARTLINE
[2025-04-16 05:58] LABS: Arterial Blood Gas Tidal Volume 450 ml; Arterial Blood Gas Ventilator rate 20 /MIN
[2025-04-16] MEDS: SODIUM BICARBONATE 8.4% 50 MEQ/50 ML SYRINGE IV PUSH (07:43)
[2025-04-16] MEDS: MINERAL OIL/WHITE PETROLATUM OINTMENT 1 APPLIC EACH EYE ×2 (08:12→20:10)
[2025-04-16] MEDS: PANTOPRAZOLE SODIUM IV 40 MG VIAL IV PUSH (08:14)
[2025-04-16] MEDS: DOXYCYCLINE IV 100 MG in SODIUM CHLORIDE 0.9% IV 100 ML IVPB ×2 (08:14→20:09)
--- NOTE | 2025-04-16 09:07 | P.PNINT_ITS ---
Progress Note: A&P Assessment and Plan (1) Intentional overdose of calcium-channel ryne: Code(s): T46.1X2A - Poisoning by calcium-channel blockers, intentional self-harm, initial encounter Status: Acute Assessment and Plan: Patient with calcium channel ryne/amlodipine overdose causing severe hypotension, bradycardia -received multiple doses of calcium chloride and calcium gluconate -calcium level this morning 9.7 -patient currently on insulin infusion for calcium channel ryne overdose, also on D5 1/2 NS infusion -continue epinephrine infusion, maintain MAP > 60 mmHg or SBP > 120 mmHg -Poison Control was notified and following and recommended insulin infusion -continue to monitor closely (2) Intentional drug overdose: Code(s): T50.902A - Poisoning by unspecified drugs, medicaments and biological substances, intentional self-harm, initial encounter Status: Acute Assessment and Plan: Patient overdosed on multiple other medications, most concerning are Tylenol, losartan, baclofen, aripiprazole, duloxetine, gabapentin, clopidogrel, sonny roxaban -INR is 1.3 -received IV fluids, -continue monitor urine output (3) Suicide attempt: Code(s): T14.91XA - Suicide attempt, initial encounter Status: Acute Assessment and Plan: Likely suicidal attempt/ideation - According the family she did tell them just over life, cannot do it anymore -once patient is medically stable will have care coordination and crisis management evaluate the patient for inpatient psych (4) Shock circulatory: Code(s): R57.9 - Shock, unspecified Status: Acute Assessment and Plan: Circulatory shock likely related to losartan, amlodipine and multiple other medications -continue vasopressors as needed -lactic acid has normalized -continue epinephrine as above for bradycardia and hypotension (5) Respiratory failure: Code(s): J96.90 - Respiratory failure, unspecified, unspecified whether with hypoxia or hypercapnia Status: Acute Assessment and Plan: Acute respiratory failure likely related to altered mental status, aspiration pneumonia due to emesis upon arrival to the ER -continue CMV mode of ventilation, peep of 8, 35% FiO2 -ABGs and chest x-ray reviewed, ventilator adjusted -will add bronchodilators flow patient was wheezing earlier this morning -sedated with fentanyl, Versed, maintain RASS of 0 to -2, daily SBT and SAT (6) Aspiration pneumonia: Code(s): J69.0 - Pneumonitis due to inhalation of food and vomit Status: Acute Assessment and Plan: Patient had emesis with altered mental status, chest x-ray showed possible atelectasis versus pneumonia likely aspiration --continue cefepime and doxycycline (04/15) (7) Diabetes mellitus: Code(s): E11.9 - Type 2 diabetes mellitus without complications Status: Acute Assessment and Plan: Continue insulin infusion (8) Electrolyte imbalance: Code(s): E87.8 - Other disorders of electrolyte and fluid balance, not elsewhere classified Status: Acute Assessment and Plan: Hyperkalemia, will give a dose of bicarb, patient already on insulin infusion -will give a dose of Lokelma Plan DVT prophylaxis: SCDs, patient is overdosed on rivaroxaban, aspirin, clopidogrel, bruising noted around central line, will hold off chemoprophylaxis at this time due to increase risk of bleeding Stress ulcer prophylaxis: Protonix Nutrition: Will start tube feeds Code Status: Full code Critical Care Time Spent: 34 minutes 04/15/2025: Discussed at length during rounds with Geri, mother and Vee, sister who is the POA and updated them regarding patient's condition and plan of care. I explained to them that she is on vasopressors for her blood pressure support medication, insulin infusion, intubation requiring mechanical ventilation for airway protection in oxygenation. She has also taken multiple other medication which can cause altered mental status. Discussed with the POA at length regarding code status, patient's wishes were to be DNR, POA also agrees with that. Have placed DNR orders in the chart Due to a high probability of clinically significant, life threatening deterioration, the patient required my highest level of preparedness to intervene emergently and I personally spent this critical care time directly and personally managing the patient. This critical care time included obtaining a history; examining the patient; pulse oximetry; ordering and review of studies; arranging urgent treatment with development of a management plan; evaluation of patient's response to treatment; frequent reassessment; and discussions with other providers. It was exclusive of separately billable procedures and treating other patients and teaching time. Please see Assessment and Plan section and the rest of the note for further information on patient assessment and treatment This dictation may have been done utilizing a voice recognition system. Attempts have been made to correct errors. However, there may be uncorrected grammatical, spelling, and recognitions errors present. Subjective Date/time seen: 04/16/25 09:07 Interval history: Reason for consult: Intentional poly medication overdose, acute respiratory failure, altered mental status, aspiration pneumonia, acute kidney injury, lactic acidosis, suicidal ideation 04/15: Arterial line placed 04/16/2025: Patient seen and examined the ICU, remains intubated on CMV mode of ventilation, peep of 8, 30% FiO2. Sedated with Versed and fentanyl infusion. Patient opens her eyes, tracks but does not follow simple commands. Patient is afebrile, adequate urine output. Remains on epinephrine and insulin infusion. Afebrile and bradycardic. Potassium 5.2 this morning, creatinine improving Review of Systems Review of Systems: ROS unobtainable: Yes unobtainable due to endotracheal tube, unobtainable due to medical condition and unobtainable due to mental status Exam Narrative: General: Intubated and sedated, in no acute distress HEENT:? Pupils equal and reactive, sclera is clear Neck:? Supple Respiratory:? Clear to auscultation bilaterally, decreased at bases Rt > Lt, no wheezing, adequate air entry Cardiac:? S1-S2 is normal, bradycardia Abdomen:? 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 Intubated, sedated, opens her eyes, tracks but does not follow simple commands, withdraws to pain stimuli Skin:? Multiple healing wounds on the bilateral lower extremity Psych:? Unable to assess at this time Objective Data Vital Signs Vital Signs: Vital Signs - 24 hr 04/15/25 10:00 04/15/25 10:00 04/15/25 10:00 Temperature 97.2 F L Pulse Rate 56 L 55 L 55 L Respiratory Rate 20 20 20 Blood Pressure 164/49 H Pulse Oximetry 99 Oxygen Delivery Fraction of Inspired Oxygen 04/15/25 10:00 04/15/25 10:15 04/15/25 10:21 Temperature Pulse Rate 55 L 55 L 55 L Respiratory Rate Blood Pressure 164/40 H 164/49 H Pulse Oximetry Oxygen Delivery Fraction of Inspired Oxygen 04/15/25 10:21 04/15/25 11:00 04/15/25 11:56 Temperature 97.0 F L Pulse Rate 55 L 53 L 51 L Respiratory Rate 20 Blood Pressure 164/49 H 158/42 H 107/32 L Pulse Oximetry 99 Oxygen Delivery Fraction of Inspired Oxygen 04/15/25 12:00 04/15/25 12:00 04/15/25 12:00 Temperature Pulse Rate 52 L 52 L 52 L Respiratory Rate 20 Blood Pressure 111/33 L 111/33 L Pulse Oximetry Oxygen Delivery Fraction of Inspired Oxygen 04/15/25 12:00 04/15/25 12:00 04/15/25 12:00 Temperature Pulse Rate 52 L 52 L 52 L Respiratory Rate 20 20 Blood Pressure Pulse Oximetry 99 Oxygen Delivery Mechanical Ventilation Fraction of Inspired Oxygen 30 04/15/25 12:00 04/15/25 12:18 04/15/25 13:43 Temperature Pulse Rate 52 L 51 L Respiratory Rate Blood Pressure 108/33 L Pulse Oximetry 100 Oxygen Delivery Mechanical Ventilation Fraction of Inspired Oxygen 30 30 04/15/25 13:46 04/15/25 14:00 04/15/25 14:00 Temperature 96.9 F L Pulse Rate 53 L 55 L 55 L Respiratory Rate 20 Blood Pressure 110/33 L 110/33 L Pulse Oximetry 99 Oxygen Delivery Fraction of Inspired Oxygen 04/15/25 14:00 04/15/25 14:00 04/15/25 14:45 Temperature Pulse Rate 55 L 55 L 55 L Respiratory Rate 20 20 20 Blood Pressure Pulse Oximetry Oxygen Delivery Fraction of Inspired Oxygen 04/15/25 14:49 04/15/25 14:50 04/15/25 15:00 Temperature Pulse Rate 55 L 55 L 57 L Respiratory Rate 20 Blood Pressure 110/33 L Pulse Oximetry 99 Oxygen Delivery Mechanical Ventilation Fraction of Inspired Oxygen 30 04/15/25 16:00 04/15/25 16:00 04/15/25 16:00 Temperature Pulse Rate 56 L 55 L 55 L Respiratory Rate 20 20 Blood Pressure 109/33 L Pulse Oximetry Oxygen Delivery Fraction of Inspired Oxygen 04/15/25 16:00 04/15/25 16:00 04/15/25 16:00 Temperature 97.0 F L Pulse Rate 55 L 55 L 55 L Respiratory Rate 20 20 Blood Pressure 109/34 L 109/33 L Pulse Oximetry 99 99 Oxygen Delivery Mechanical Ventilation Fraction of Inspired Oxygen 30 04/15/25 16:00 04/15/25 16:00 04/15/25 17:56 Temperature Pulse Rate 55 L 52 L Respiratory Rate Blood Pressure Pulse Oximetry 99 Oxygen Delivery Mechanical Ventilation Fraction of Inspired Oxygen 30 30 04/15/25 18:00 04/15/25 18:00 04/15/25 18:00 Temperature Pulse Rate 66 65 65 Respiratory Rate 20 20 Blood Pressure 140/46 L Pulse Oximetry Oxygen Delivery Fraction of Inspired Oxygen 04/15/25 18:00 04/15/25 18:00 04/15/25 20:00 Temperature 97.1 F L Pulse Rate 65 48 L 54 L Respiratory Rate 20 Blood Pressure 111/37 L 124/39 L Pulse Oximetry 99 Oxygen Delivery Fraction of Inspired Oxygen 04/15/25 20:00 04/15/25 20:00 04/15/25 20:00 Temperature 97.1 F L Pulse Rate 54 L 54 L 53 L Respiratory Rate 20 20 20 Blood Pressure 128/40 L Pulse Oximetry 99 Oxygen Delivery Fraction of Inspired Oxygen 04/15/25 20:00 04/15/25 20:04 04/15/25 20:04 Temperature Pulse Rate 54 L 54 L 54 L Respiratory Rate 20 Blood Pressure Pulse Oximetry 99 Oxygen Delivery Mechanical Ventilation Fraction of Inspired Oxygen 30 04/15/25 20:10 04/15/25 20:16 04/15/25 20:16 Temperature Pulse Rate 55 L 55 L 53 L Respiratory Rate 20 Blood Pressure 135/38 L 136/39 L Pulse Oximetry Oxygen Delivery Fraction of Inspired Oxygen 04/15/25 20:29 04/15/25 20:30 04/15/25 20:30 Temperature 97.1 F L Pulse Rate 54 L 53 L Respiratory Rate 20 Blood Pressure 145/40 H 147/44 H Pulse Oximetry 99 Oxygen Delivery Fraction of Inspired Oxygen 30 04/15/25 20:30 04/15/25 20:45 04/15/25 21:35 Temperature 97.1 F L Pulse Rate 53 L 54 L 75 Respiratory Rate 20 20 24 H Blood Pressure 140/39 L Pulse Oximetry 99 99 Oxygen Delivery Mechanical Ventilation Fraction of Inspired Oxygen 30 04/15/25 21:35 04/15/25 21:36 04/15/25 21:38 Temperature 97 F L Pulse Rate 75 75 71 Respiratory Rate 24 H 24 H Blood Pressure 161/81 H 161/81 H Pulse Oximetry 100 Oxygen Delivery Fraction of Inspired Oxygen 04/15/25 21:45 04/15/25 22:00 04/15/25 22:00 Temperature 96.9 F L 97 F L Pulse Rate 57 L 55 L 55 L Respiratory Rate 20 20 Blood Pressure 135/41 L 134/40 L Pulse Oximetry 99 99 Oxygen Delivery Fraction of Inspired Oxygen 04/15/25 22:00 04/15/25 22:00 04/15/25 22:00 Temperature Pulse Rate 55 L 55 L 55 L Respiratory Rate 20 20 Blood Pressure 135/41 L Pulse Oximetry Oxygen Delivery Fraction of Inspired Oxygen 04/15/25 23:06 04/15/25 23:45 04/15/25 23:45 Temperature 97.4 F L Pulse Rate 52 L 59 L 55 L Respiratory Rate 20 Blood Pressure 143/46 H 143/46 H Pulse Oximetry 99 100 Oxygen Delivery Mechanical Ventilation Fraction of Inspired Oxygen 30 04/15/25 23:46 04/15/25 23:52 04/16/25 00:00 Temperature Pulse Rate 54 L 54 L 51 L Respiratory Rate 20 Blood Pressure 143/46 H 129/39 L Pulse Oximetry 99 Oxygen Delivery Mechanical Ventilation Fraction of Inspired Oxygen 30 04/16/25 00:00 04/16/25 00:00 04/16/25 00:00 Temperature 97.4 F L Pulse Rate 51 L 51 L 56 L Respiratory Rate 20 20 20 Blood Pressure 140/44 L Pulse Oximetry 98 Oxygen Delivery Fraction of Inspired Oxygen 04/16/25 00:00 04/16/25 00:00 04/16/25 01:39 Temperature Pulse Rate 51 L 49 L Respiratory Rate 20 Blood Pressure Pulse Oximetry Oxygen Delivery Fraction of Inspired Oxygen 30 04/16/25 01:44 04/16/25 01:45 04/16/25 02:00 Temperature Pulse Rate 49 L 50 L 50 L Respiratory Rate 20 Blood Pressure 126/39 L Pulse Oximetry 100 Oxygen Delivery Mechanical Ventilation Fraction of Inspired Oxygen 30 04/16/25 02:00 04/16/25 02:00 04/16/25 02:00 Temperature Pulse Rate 51 L 51 L 51 L Respiratory Rate 20 20 Blood Pressure Pulse Oximetry Oxygen Delivery Fraction of Inspired Oxygen 04/16/25 02:00 04/16/25 03:55 04/16/25 04:00 Temperature 97.5 F L 97.4 F L Pulse Rate 51 L 51 L 49 L Respiratory Rate 20 20 20 Blood Pressure 125/41 L 125/39 L Pulse Oximetry 100 99 99 Oxygen Delivery Mechanical Ventilation Fraction of Inspired Oxygen 30 04/16/25 04:00 04/16/25 04:00 04/16/25 04:00 Temperature Pulse Rate 50 L 51 L Respiratory Rate 20 Blood Pressure 125/39 L Pulse Oximetry Oxygen Delivery Fraction of Inspired Oxygen 30 04/16/25 04:00 04/16/25 04:00 04/16/25 05:35 Temperature Pulse Rate 51 L 48 L 47 L Respiratory Rate 20 Blood Pressure Pulse Oximetry 96 Oxygen Delivery Mechanical Ventilation Fraction of Inspired Oxygen 30 04/16/25 06:00 04/16/25 06:00 04/16/25 06:00 Temperature 96.8 F L Pulse Rate 48 L 48 L 48 L Respiratory Rate 20 Blood Pressure 126/39 L 128/39 L Pulse Oximetry 96 Oxygen Delivery Fraction of Inspired Oxygen 04/16/25 06:00 04/16/25 06:00 04/16/25 07:47 Temperature Pulse Rate 48 L 48 L 56 L Respiratory Rate 20 20 Blood Pressure 148/47 H Pulse Oximetry Oxygen Delivery Fraction of Inspired Oxygen 04/16/25 08:00 04/16/25 08:00 04/16/25 08:00 Temperature 96.8 F L Pulse Rate 53 L 61 56 L Respiratory Rate 20 20 20 Blood Pressure 137/44 L Pulse Oximetry 96 Oxygen Delivery Fraction of Inspired Oxygen 04/16/25 08:07 04/16/25 08:16 04/16/25 08:18 Temperature Pulse Rate 59 L 54 L 57 L Respiratory Rate 18 Blood Pressure 141/48 H Pulse Oximetry 96 Oxygen Delivery Mechanical Ventilation Fraction of Inspired Oxygen 30 04/16/25 08:23 04/16/25 08:29 Temperature Pulse Rate 57 L 55 L Respiratory Rate 18 Blood Pressure 139/49 L Pulse Oximetry Oxygen Delivery Fraction of Inspired Oxygen Intake/Output Intake/Output: Intake & Output 04/13/25 04/14/25 04/15/25 04/16/25 23:59 23:59 23:59 23:59 Intake Total 2900 4547.1 253.8 Output Total 1680 1450 Balance 2900 2867.1 -1196.2 Meds/Results Medications: Active Medications Generic Name Dose Route Start Last Admin Trade Name Freq PRN Reason Stop Dose Admin Albuterol/Ipratropium 3 ml 04/15/25 07:30 04/16/25 08:16 Ipratropium 0.5 Mg/Albuterol Sulfate 2.5 Mg Ampul.Neb 3 Ml INHALATION 3 ml Q6HRT FARHANA Administration Dextrose/Sodium Chloride 1,000 mls @ 65 mls/hr 04/14/25 20:40 04/15/25 23:48 Dextrose 5% Sodium Chloride 0.45% IV CONT 65 mls/hr .[id number] FARHANA Administration Insulin Human Regular 100 100 mls @ 1 mls/hr 04/15/25 00:30 04/16/25 08:00 units/ Sodium Chloride IV CONT 1 units/hr .Q24H FARHANA 1 mls/hr Protocol Titration 1 UNITS/HR Cefepime HCl 2 gm/ Sodium 50 mls @ 100 mls/hr 04/15/25 02:00 04/16/25 03:32 Chloride IVPB Infused Q12H FARHANA Infusion Epinephrine HCl 4 mg/ Dextrose 254 mls @ 0 mls/hr 04/15/25 04:00 04/16/25 08:29 IV CONT 0 mcg/min .Q0M FARHANA 0 mls/hr Protocol Titration Fentanyl Citrate 2,500 mcg in 250 mls @ 5 mls/hr 04/15/25 05:10 04/16/25 08:00 Fentanyl 2,500 Mcg/Ns 250 Ml IV CONT 50 mcg/hr .Q50H FARHANA 5 mls/hr Protocol Titration 50 MCG/HR Midazolam HCl 100 mg in 100 mls @ 1 mls/hr 04/15/25 05:10 04/16/25 08:00 Versed 100 Mg/Ns 100 Ml IV CONT 1 mg/hr .Q72H FARHANA 1 mls/hr Protocol Titration 1 MG/HR Doxycycline Hyclate 100 mg/ 100 mls @ 100 mls/hr 04/15/25 10:15 04/16/25 08:14 Sodium Chloride IVPB 100 mls/hr Q12HR FARHANA Administration Multi-Ingred Cream/Lotion/Oil/Oint 1 applic 04/15/25 09:00 04/16/25 08:12 Mineral Oil/White Petrolatum Ointment EACH EYE 1 applic Q12HR FARHANA Administration Pantoprazole Sodium 40 mg 04/15/25 08:00 04/16/25 08:14 Pantoprazole Sodium Iv 40 Mg Vial IV PUSH 40 mg QAM FARHANA Administration Sodium Chloride 10 ml 04/15/25 06:00 04/16/25 05:26 Central Line Flush IV PUSH 10 ml Q8HR FARHANA Administration Sodium Chloride 20 ml 04/15/25 02:07 Central Line Flush IV PUSH PRN PRN after blood draws Radiology Results: ITS Impressions Abdomen X-Ray 04/14/25 20:46 IMPRESSION: 1. Endotracheal tube and orogastric tube in expected positions. 2. Decreased left lung volume with elevation the left hemidiaphragm and patchy airspace opacities throughout the left lung which could represent atelectasis and/or pneumonia. 3. Pulmonary vascular congestion with increased interstitial pattern in the right perihilar region which could represent mild pulmonary edema and/or pneumonia. Head CT 04/15/25 08:50 IMPRESSION: 1. No acute intracranial abnormality. Chest X-Ray 04/16/25 05:51 Impression: 1: Persistent retrocardiac airspace disease which may represent atelectasis and/or pneumonia. 2: Small left pleural effusion. Labs Labs: Laboratory Results - last 24 hr 04/15/25 04/15/25 04/15/25 09:59 10:59 12:00 WBC RBC Hgb Hct MCV MCH MCHC RDW Plt Count MPV Immature Gran % (Auto) Neut % (Auto) Lymph % (Auto) [place] % (Auto) Eos % (Auto) Baso % (Auto) Lymph # (Auto) [place] # (Auto) Eos # (Auto) Baso # (Auto) Abs Immat Gran (auto) Absolute Neuts (auto) Absolute Nucleated RBC Nucleated RBC % Puncture Site ABG pH ABG pCO2 ABG pO2 ABG PO2/FiO2 Ratio ABG HCO3 ABG O2 Saturation ABG O2 Content ABG Base Excess A-a Gradient Oxyhemoglobin Carboxyhemoglobin Methemoglobin Reduced Hemoglobin Total Hemoglobin O2 Delivery Device O2 Liters/Min Minute Volume Vent Rate Vent Mode FiO2 Tidal Volume PEEP Peak Inspir Pressure Pressure Support Sodium Potassium Chloride Carbon Dioxide Anion Gap BUN Creatinine Estim Creat Clear Calc Estimated GFR Glucose POC Capillary Glucose 271 H 238 H 221 H Lactic Acid Calcium Phosphorus Magnesium Total Bilirubin AST ALT Alkaline Phosphatase Ammonia Total Protein Albumin 04/15/25 04/15/25 04/15/25 12:06 13:03 14:04 WBC RBC Hgb Hct MCV MCH MCHC RDW Plt Count MPV Immature Gran % (Auto) Neut % (Auto) Lymph % (Auto) [place] % (Auto) Eos % (Auto) Baso % (Auto) Lymph # (Auto) [place] # (Auto) Eos # (Auto) Baso # (Auto) Abs Immat Gran (auto) Absolute Neuts (auto) Absolute Nucleated RBC Nucleated RBC % Puncture Site Artline ABG pH 7.317 L ABG pCO2 39.9 ABG pO2 94.1 ABG PO2/FiO2 Ratio 3.14 ABG HCO3 20.0 L ABG O2 Saturation 96.7 ABG O2 Content 15.0 L ABG Base Excess -5.7 A-a Gradient 72.9 Oxyhemoglobin 96.8 Carboxyhemoglobin Methemoglobin Reduced Hemoglobin Total Hemoglobin 10.9 L O2 Delivery Device Ventilator O2 Liters/Min 30.0 Minute Volume Not Reportable Vent Rate 20 Vent Mode Cmv FiO2 30 Tidal Volume 450 PEEP 8 Peak Inspir Pressure Not Reportable Pressure Support Not Reportable Sodium Potassium Chloride Carbon Dioxide Anion Gap BUN Creatinine Estim Creat Clear Calc Estimated GFR Glucose POC Capillary Glucose 203 H 168 H Lactic Acid Calcium Phosphorus Magnesium Total Bilirubin AST ALT Alkaline Phosphatase Ammonia Total Protein Albumin 04/15/25 04/15/25 04/15/25 14:55 15:59 16:54 WBC RBC Hgb Hct MCV MCH MCHC RDW Plt Count MPV Immature Gran % (Auto) Neut % (Auto) Lymph % (Auto) [place] % (Auto) Eos % (Auto) Baso % (Auto) Lymph # (Auto) [place] # (Auto) Eos # (Auto) Baso # (Auto) Abs Immat Gran (auto) Absolute Neuts (auto) Absolute Nucleated RBC Nucleated RBC % Puncture Site ABG pH ABG pCO2 ABG pO2 ABG PO2/FiO2 Ratio ABG HCO3 ABG O2 Saturation ABG O2 Content ABG Base Excess A-a Gradient Oxyhemoglobin Carboxyhemoglobin Methemoglobin Reduced Hemoglobin Total Hemoglobin O2 Delivery Device O2 Liters/Min Minute Volume Vent Rate Vent Mode FiO2 Tidal Volume PEEP Peak Inspir Pressure Pressure Support Sodium Potassium Chloride Carbon Dioxide Anion Gap BUN Creatinine Estim Creat Clear Calc Estimated GFR Glucose POC Capillary Glucose 169 H 162 H 156 H Lactic Acid Calcium Phosphorus Magnesium Total Bilirubin AST ALT Alkaline Phosphatase Ammonia Total Protein Albumin 04/15/25 04/15/25 04/15/25 17:57 18:56 20:06 WBC RBC Hgb Hct MCV MCH MCHC RDW Plt Count MPV Immature Gran % (Auto) Neut % (Auto) Lymph % (Auto) [place] % (Auto) Eos % (Auto) Baso % (Auto) Lymph # (Auto) [place] # (Auto) Eos # (Auto) Baso # (Auto) Abs Immat Gran (auto) Absolute Neuts (auto) Absolute Nucleated RBC Nucleated RBC % Puncture Site ABG pH ABG pCO2 ABG pO2 ABG PO2/FiO2 Ratio ABG HCO3 ABG O2 Saturation ABG O2 Content ABG Base Excess A-a Gradient Oxyhemoglobin Carboxyhemoglobin Methemoglobin Reduced Hemoglobin Total Hemoglobin O2 Delivery Device O2 Liters/Min Minute Volume Vent Rate Vent Mode FiO2 Tidal Volume PEEP Peak Inspir Pressure Pressure Support Sodium Potassium Chloride Carbon Dioxide Anion Gap BUN Creatinine Estim Creat Clear Calc Estimated GFR Glucose POC Capillary Glucose 142 H 169 H 198 H Lactic Acid Calcium Phosphorus Magnesium Total Bilirubin AST ALT Alkaline Phosphatase Ammonia Total Protein Albumin 04/15/25 04/15/25 04/15/25 21:02 22:03 23:03 WBC RBC Hgb Hct MCV MCH MCHC RDW Plt Count MPV Immature Gran % (Auto) Neut % (Auto) Lymph % (Auto) [place] % (Auto) Eos % (Auto) Baso % (Auto) Lymph # (Auto) [place] # (Auto) Eos # (Auto) Baso # (Auto) Abs Immat Gran (auto) Absolute Neuts (auto) Absolute Nucleated RBC Nucleated RBC % Puncture Site ABG pH ABG pCO2 ABG pO2 ABG PO2/FiO2 Ratio ABG HCO3 ABG O2 Saturation ABG O2 Content ABG Base Excess A-a Gradient Oxyhemoglobin Carboxyhemoglobin Methemoglobin Reduced Hemoglobin Total Hemoglobin O2 Delivery Device O2 Liters/Min Minute Volume Vent Rate Vent Mode FiO2 Tidal Volume PEEP Peak Inspir Pressure Pressure Support Sodium Potassium Chloride Carbon Dioxide Anion Gap BUN Creatinine Estim Creat Clear Calc Estimated GFR Glucose POC Capillary Glucose 198 H 225 H 245 H Lactic Acid Calcium Phosphorus Magnesium Total Bilirubin AST ALT Alkaline Phosphatase Ammonia Total Protein Albumin 04/15/25 04/16/25 04/16/25 23:53 00:59 02:04 WBC RBC Hgb Hct MCV MCH MCHC RDW Plt Count MPV Immature Gran % (Auto) Neut % (Auto) Lymph % (Auto) [place] % (Auto) Eos % (Auto) Baso % (Auto) Lymph # (Auto) [place] # (Auto) Eos # (Auto) Baso # (Auto) Abs Immat Gran (auto) Absolute Neuts (auto) Absolute Nucleated RBC Nucleated RBC % Puncture Site ABG pH ABG pCO2 ABG pO2 ABG PO2/FiO2 Ratio ABG HCO3 ABG O2 Saturation ABG O2 Content ABG Base Excess A-a Gradient Oxyhemoglobin Carboxyhemoglobin Methemoglobin Reduced Hemoglobin Total Hemoglobin O2 Delivery Device O2 Liters/Min Minute Volume Vent Rate Vent Mode FiO2 Tidal Volume PEEP Peak Inspir Pressure Pressure Support Sodium Potassium Chloride Carbon Dioxide Anion Gap BUN Creatinine Estim Creat Clear Calc Estimated GFR Glucose POC Capillary Glucose 254 H 223 H 203 H Lactic Acid Calcium Phosphorus Magnesium Total Bilirubin AST ALT Alkaline Phosphatase Ammonia Total Protein Albumin 04/16/25 04/16/25 04/16/25 03:04 04:04 04:49 WBC 12.6 H RBC 3.38 L Hgb 9.9 L Hct 31.1 L MCV 92.0 MCH 29.3 MCHC 31.8 L RDW 15.7 H Plt Count 159 MPV 9.8 Immature Gran % (Auto) 0.2 Neut % (Auto) 77.3 H Lymph % (Auto) 13.2 L [place] % (Auto) 8.6 H Eos % (Auto) 0.2 Baso % (Auto) 0.5 Lymph # (Auto) 1.66 [place] # (Auto) 1.1 H Eos # (Auto) 0.0 Baso # (Auto) 0.1 Abs Immat Gran (auto) 0.03 Absolute Neuts (auto) 9.7 H Absolute Nucleated RBC 0.000 Nucleated RBC % 0.0 Puncture Site Artline ABG pH 7.459 H ABG pCO2 30.7 L ABG pO2 ABG PO2/FiO2 Ratio ABG HCO3 21.3 L ABG O2 Saturation ABG O2 Content ABG Base Excess -1.8 A-a Gradient Oxyhemoglobin 97.9 Carboxyhemoglobin 0.3 Methemoglobin 0.1 Reduced Hemoglobin 1.7 Total Hemoglobin 10.6 L O2 Delivery Device Ventilator O2 Liters/Min Not Reportable Minute Volume Not Reportable Vent Rate 20 Vent Mode Cmv FiO2 30 Tidal Volume 450 PEEP 8 Peak Inspir Pressure Not Reportable Pressure Support Not Reportable Sodium 132 L Potassium 5.2 H Chloride 105 Carbon Dioxide 21 L Anion Gap 6 BUN 30 H Creatinine 1.35 H Estim Creat Clear Calc 54 Estimated GFR 39 L Glucose 215 H POC Capillary Glucose 214 H 191 H Lactic Acid 1.3 Calcium 9.7 Phosphorus 3.9 Magnesium 2.4 H Total Bilirubin 0.2 AST 36 ALT 25 Alkaline Phosphatase 115 Ammonia < 9 L Total Protein 5.7 L Albumin 3.1 L 04/16/25 04/16/25 04/16/25 04:59 06:10 06:56 WBC RBC Hgb Hct MCV MCH MCHC RDW Plt Count MPV Immature Gran % (Auto) Neut % (Auto) Lymph % (Auto) [place] % (Auto) Eos % (Auto) Baso % (Auto) Lymph # (Auto) [place] # (Auto) Eos # (Auto) Baso # (Auto) Abs Immat Gran (auto) Absolute Neuts (auto) Absolute Nucleated RBC Nucleated RBC % Puncture Site ABG pH ABG pCO2 ABG pO2 ABG PO2/FiO2 Ratio ABG HCO3 ABG O2 Saturation ABG O2 Content ABG Base Excess A-a Gradient Oxyhemoglobin Carboxyhemoglobin Methemoglobin Reduced Hemoglobin Total Hemoglobin O2 Delivery Device O2 Liters/Min Minute Volume Vent Rate Vent Mode FiO2 Tidal Volume PEEP Peak Inspir Pressure Pressure Support Sodium Potassium Chloride Carbon Dioxide Anion Gap BUN Creatinine Estim Creat Clear Calc Estimated GFR Glucose POC Capillary Glucose 212 H 212 H 212 H Lactic Acid Calcium Phosphorus Magnesium Total Bilirubin AST ALT Alkaline Phosphatase Ammonia Total Protein Albumin 04/16/25 04/16/25 07:59 08:59 WBC RBC Hgb Hct MCV MCH MCHC RDW Plt Count MPV Immature Gran % (Auto) Neut % (Auto) Lymph % (Auto) [place] % (Auto) Eos % (Auto) Baso % (Auto) Lymph # (Auto) [place] # (Auto) Eos # (Auto) Baso # (Auto) Abs Immat Gran (auto) Absolute Neuts (auto) Absolute Nucleated RBC Nucleated RBC % Puncture Site ABG pH ABG pCO2 ABG pO2 ABG PO2/FiO2 Ratio ABG HCO3 ABG O2 Saturation ABG O2 Content ABG Base Excess A-a Gradient Oxyhemoglobin Carboxyhemoglobin Methemoglobin Reduced Hemoglobin Total Hemoglobin O2 Delivery Device O2 Liters/Min Minute Volume Vent Rate Vent Mode FiO2 Tidal Volume PEEP Peak Inspir Pressure Pressure Support Sodium Potassium Chloride Carbon Dioxide Anion Gap BUN Creatinine Estim Creat Clear Calc Estimated GFR Glucose POC Capillary Glucose 206 H 215 H Lactic Acid Calcium Phosphorus Magnesium Total Bilirubin AST ALT Alkaline Phosphatase Ammonia Total Protein Albumin Quality VTE Prophylaxis VTE prophylaxis: mechanical ordered
[2025-04-16] MEDS: SODIUM ZIRCONIUM CYCLOSILICATE 10 GM POWD.PACK PO (09:41)
--- NOTE | 2025-04-16 12:03 | PCFNICU ---
ICU Rounding Note: Pt current nutrition is NPO. Nutrition recommendation: Vital High Protein at 20 ml/hr. Last recorded weight is 143.5 kg, up from 141 kg on admit. Bowel Motility: No BM reported. Labs Reviewed:Mg 2.4, K 5.2, Alb 3.1, Hct 31.1, Hgb 9.69, BUN 30, Cr 1.35 Meds Noted: Fentanyl, Versed, Insulin, Protonix Skin: WNL Additional Notes: Patient remains on mechanical vent. Tube feedings to start today to Vital High Protein at 20 ml/hr with goal rate at 40 ml/hr today. Flush 30 ml q 4hours. Agree with diet order at this time. Following daily in ICU rounds. Will monitor weight, labs, skin, diet orders, meds, every Monday and Monday.
[2025-04-16 14:08] LABS: Calcium, Ionized 4.5 mg/dL (4.5-5.6)
[2025-04-16] MEDS: INSULIN HUMAN REGULAR (*BKC) 100 UNITS in SODIUM CHLORIDE 0.9% IV 99 ML IV CONT (14:26)
[2025-04-16] MEDS: DEXTROSE 5%/0.45% SOD CHL 1,000 ML 65 ML IV CONT (14:27)
--- NOTE | 2025-04-16 21:37 | PC.NURSE ---
Poison control updated at 2134 with vitals and current patient status. Patient remains stable and intubated & sedated at this time. No further recommendations from poison control at this time.
[2025-04-17] VITALS (34 sets, daily range): BP systolic 122–153; BP diastolic 44–54; PULSE 54–93; RESP 18–28; TEMP 36.4–37.3; O2SAT 92–99
[2025-04-17] MEDS: CEFEPIME 2 GM in SODIUM CHLORIDE 0.9% IV 50 ML 100 ML IVPB (01:22)
[2025-04-17] MEDS: IPRATROPIUM 0.5 MG/ALBUTEROL SULFATE 2.5 MG AMPUL.NEB 3 ML INHALATION ×4 (02:24→20:54)
[2025-04-17] MEDS: DEXTROSE 5%/0.45% SOD CHL 1,000 ML 65 ML IV CONT (04:05)
[2025-04-17] MEDS: FENTANYL 2,500MCG/NS250ML(*CRX 2,500 MCG/250 ML BAG 10 MCG IV CONT (04:06)
[2025-04-17 04:44] LABS: Alveolar/Arterial O2 Gradient 79.3 mmHg; Carboxyhemoglobin 0.0 % THb (0-2.0); Fractional Inspired Oxygen 30 %; HCO3 ABG 22.0 mEq/l (22.0-26.0); Methemoglobin ABG 0.1 %THb (0-1.5); Oxygen Content ABG 14.0 %vol (16.0-22.0); Oxygen Saturation ABG 97.3 % (95.0-100.0); PCO2 ABG 35.0 mmHg (35.0-45.0); PO2 ABG 93.5 mmHg (80.0-100.0); PO2 FiO2 Ratio Arterial Blood 3.12 %; Reduced Hemoglobin 2.9 %THb (0-5.0)
[2025-04-17 04:54] LABS: Hematocrit 29.6 % (37.0-47.0); Hemoglobin 9.4 g/dL (12.0-15.0); Immature Granulocyte Percent A 0.2 % (0-0.5); Lymphocytes Absolute Auto 1.45 K/mm3 (0.9-3.2); Mean Corpuscular HGB Conc 31.8 g/dl (32-36); Mean Corpuscular Hemoglobin 29.2 pg (26-34); Mean Corpuscular Volume 91.9 fl (80-100); Nucleated Red Blood Cells Absolute Auto 0.000 K/mm3 (0.0-0.012); Nucleated Red Blood Cells Perc 0.0 % (0.0-0.2); Platelet Count Result 112 k/mm3 (150-375); Red Blood Count 3.22 M/mm3 (4.2-5.4); White Blood Count 8.2 K/mm3 (4.5-10.0)
[2025-04-17] MEDS: CENTRAL LINE FLUSH 10 ML IV PUSH ×3 (04:55→20:04)
[2025-04-17 05:01] LABS: Ammonia < 9 umol/L (9-30)
[2025-04-17 05:04] LABS: Alanine Aminotransferase 25 U/L (6-35); Albumin Level 3.0 g/dL (3.5-5.1); Alkaline Phosphatase 122 U/L (38-126); Anion Gap 4 mmol/L (4-12); Aspartate Amino Transferase 36 U/L (14-36); Bilirubin,Total 0.3 mg/dL (0.2-1.3); Blood Urea Nitrogen 30 mg/dL (7-17); Calcium 9.1 mg/dL (8.4-10.2); Carbon Dioxide 24 mmol/L (22-30); Chloride 106 mmol/L (98-107); Estimated CRCL calculation 68 ml/min; Estimated Glomerular Filt Rate 52; Glucose 171 mg/dL (65-110); Magnesium 2.1 mg/dL (1.6-2.3); Potassium 4.2 mmol/L (3.4-5.0); Sodium 134 mmol/L (137-145); Total Protein 5.7 g/dL (6.3-8.2)
[2025-04-17 05:37] LABS: Site Drawn ARTLINE
[2025-04-17 05:38] LABS: Arterial Blood Gas Ventilator rate 18 /MIN
[2025-04-17 05:39] LABS: Arterial Blood Gas Tidal Volume 450 ml
[2025-04-17] MEDS: MINERAL OIL/WHITE PETROLATUM OINTMENT 1 APPLIC EACH EYE ×2 (09:05→20:04)
[2025-04-17] MEDS: PANTOPRAZOLE SODIUM IV 40 MG VIAL IV PUSH (09:05)
[2025-04-17] MEDS: DOXYCYCLINE IV 100 MG in SODIUM CHLORIDE 0.9% IV 100 ML IVPB ×2 (09:05→20:03)
[2025-04-17] MEDS: MIDAZOLAM 100MG/NS 100ML(*CRX) 100 MG/100 ML BAG IV CONT (09:17)
--- NOTE | 2025-04-17 11:31 | PCFNICU ---
ICU Rounding Note: Pt current nutrition is Vital High Protein at 40 ml/hr. Nutrition recommendation: goal rate 60 ml/hr. Last recorded weight is 144.1 kg, up from 141.3 kg on admit. Bowel Motility: No BM reported. Labs Reviewed: Glu 171, BUN 30, Na 134, Alb 3.0, Hgb 9.4, Hct 29.6 Meds Noted: Protonix, Fentanyl, Versed. Skin: WNL Additional Notes: Patient remains on mechanical vent. Tube feedings are being tolerated of Vital High Protein at 40 ml/hr. Recommend to increase goal today to 60 ml/hr to meet caloric needs. Total Nutrition: 1320 kcal/115 gm protein/1104 ml water. Flush 30 ml q 4 hours. Agree with diet orders. Following daily in ICU rounds. Will monitor weight, labs, skin, diet orders, meds, every Monday and Monday.
[2025-04-17] MEDS: cefTRIAXone 2 GM in SODIUM CHLORIDE 0.9% IV 100 ML 200 ML IVPB (12:11)
--- NOTE | 2025-04-17 12:33 | P.PNINT_ITS ---
Progress Note: A&P Assessment and Plan (1) Intentional overdose of calcium-channel ryne: Code(s): T46.1X2A - Poisoning by calcium-channel blockers, intentional self-harm, initial encounter Status: Acute Assessment and Plan: Patient with calcium channel ryne/amlodipine overdose causing severe hypotension, bradycardia. oison Control was notified and following and recommended insulin infusion -received multiple doses of calcium chloride and calcium gluconate -calcium level is 9.1 this morning -OFF epinephrine infusion and insulin infusion, discontinue D5 half-normal saline -blood pressures and heart rate are holding -continue to monitor closely (2) Intentional drug overdose: Code(s): T50.902A - Poisoning by unspecified drugs, medicaments and biological substances, intentional self-harm, initial encounter Status: Acute Assessment and Plan: Patient overdosed on multiple other medications, most concerning are Tylenol, losartan, baclofen, aripiprazole, duloxetine, gabapentin, clopidogrel, rivaroxaban -INR is 1.3 -received IV fluids, -continue monitor urine output (3) Suicide attempt: Code(s): T14.91XA - Suicide attempt, initial encounter Status: Acute Assessment and Plan: Likely suicidal attempt/ideation - According the family she did tell them just over life, cannot do it anymore -once patient is medically stable will have care coordination and crisis management evaluate the patient for inpatient psych (4) Shock circulatory: Code(s): R57.9 - Shock, unspecified Status: Acute Assessment and Plan: Circulatory shock likely related to losartan, amlodipine and multiple other medications -off vasopressors -lactic acid has normalized -off epinephrine and insulin infusion -04/14/2025 urine cultures growing E coli, sensitivities pending, continue ceftriaxone -04/14/2025: Blood cultures negative so far -04/15/2025: Sputum cultures pending (5) Respiratory failure: Code(s): J96.90 - Respiratory failure, unspecified, unspecified whether with hypoxia or hypercapnia Status: Acute Assessment and Plan: Acute respiratory failure likely related to altered mental status, aspiration pneumonia due to emesis upon arrival to the ER -continue CMV mode of ventilation, peep of 8, 35% FiO2 -ABGs and chest x-ray reviewed, ventilator adjusted -continue bronchodilator -sedated with fentanyl, Versed, maintain RASS of 0 to -2, daily SBT and SAT, have asked the bedside RN to discontinue all sedation to evaluate her neurological status (6) Aspiration pneumonia: Code(s): J69.0 - Pneumonitis due to inhalation of food and vomit Status: Acute Assessment and Plan: Patient had emesis with altered mental status, chest x-ray showed possible atelectasis versus pneumonia likely aspiration -continue doxycycline (04/15) 04/17: Switched cefepime to ceftriaxone, (7) Diabetes mellitus: Code(s): E11.9 - Type 2 diabetes mellitus without complications Status: Acute Assessment and Plan: Continue insulin infusion (8) Electrolyte imbalance: Code(s): E87.8 - Other disorders of electrolyte and fluid balance, not elsewhere classified Status: Acute Assessment and Plan: Potassium improved after Lokelma x1 and bicarb Continue to monitor Plan DVT prophylaxis: SCDs, patient is overdosed on rivaroxaban, aspirin, clopidogrel, bruising noted around central line, will hold off chemoprophylaxis at this time due to increase risk of bleeding Stress ulcer prophylaxis: Protonix Nutrition: Tolerating tube feeds Code Status: Full code Critical Care Time Spent: 33 minutes Updated patient's mother and sister doing rounds, answered all the questions Due to a high probability of clinically significant, life threatening deterioration, the patient required my highest level of preparedness to intervene emergently and I personally spent this critical care time directly and personally managing the patient. This critical care time included obtaining a history; examining the patient; pulse oximetry; ordering and review of studies; arranging urgent treatment with development of a management plan; evaluation of patient's response to treatment; frequent reassessment; and discussions with ot her providers. It was exclusive of separately billable procedures and treating other patients and teaching time. Please see Assessment and Plan section and the rest of the note for further information on patient assessment and treatment This dictation may have been done utilizing a voice recognition system. Attempts have been made to correct errors. However, there may be uncorrected grammatical, spelling, and recognitions errors present. Subjective Date/time seen: 04/17/25 12:33 Interval history: Reason for consult: Intentional poly medication overdose, acute respiratory failure, altered mental status, aspiration pneumonia, acute kidney injury, lactic acidosis, suicidal ideation 04/15: Arterial line placed 04/17/2025: Patient seen and examined the ICU, remains intubated on CMV mode of ventilation, peep of 5, 30% FiO2, sedated with fentanyl and Versed infusion. Patient opens her eyes but does not track or follow simple commands. Is afebrile, hemodynamically stable, good urine output. Patient is off the epinephrine infusion since yesterday, the bedside RN has stopped the insulin infusion this morning. Patient is holding up blood pressures and heart rate. Review of Systems Review of Systems: ROS unobtainable: Yes unobtainable due to endotracheal tube, unobtainable due to medical condition and unobtainable due to mental status Exam Narrative: General: Intubated and sedated, in no acute distress HEENT:? Pupils equal and reactive, sclera is clear, ETT in place Neck:? Supple Respiratory:? Clear to auscultation bilaterally, decreased at bases Rt > Lt, no wheezing, adequate air entry Cardiac:? S1-S2 is normal, bradycardia Abdomen:? 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 Intubated, sedated, opens her eyes, does not track or follow simple commands, withdraws to pain stimuli Skin:? Multiple healing wounds on the bilateral lower extremity Psych:? Unable to assess at this time Objective Data Vital Signs Vital Signs: Vital Signs - 24 hr 04/16/25 14:00 04/16/25 14:00 04/16/25 14:00 Temperature 97.4 F L Pulse Rate 53 L 55 L 60 Respiratory Rate 18 18 Blood Pressure 131/48 L 134/49 L Pulse Oximetry 97 Oxygen Delivery Fraction of Inspired Oxygen 04/16/25 14:04/16/25 14:00 04/16/25 14:26 Temperature Pulse Rate 55 L 56 L 56 L Respiratory Rate 18 Blood Pressure Pulse Oximetry 95 Oxygen Delivery Mechanical Ventilation Fraction of Inspired Oxygen 30 04/16/25 14:29 04/16/25 16:00 04/16/25 16:00 Temperature 97.1 F L Pulse Rate 56 L 60 67 Respiratory Rate 18 18 20 Blood Pressure 123/46 L Pulse Oximetry 94 Oxygen Delivery Fraction of Inspired Oxygen 04/16/25 16:00 04/16/25 16:00 04/16/25 16:00 Temperature Pulse Rate 67 Respiratory Rate 20 Blood Pressure Pulse Oximetry 99 Oxygen Delivery Mechanical Ventilation Fraction of Inspired Oxygen 30 30 04/16/25 16:00 04/16/25 17:31 04/16/25 18:00 Temperature 96.9 F L Pulse Rate 60 60 54 L Respiratory Rate 18 Blood Pressure 129/48 L Pulse Oximetry 95 93 Oxygen Delivery Mechanical Ventilation Fraction of Inspired Oxygen 30 04/16/25 18:00 04/16/25 18:00 04/16/25 18:00 Temperature Pulse Rate 55 L 55 L 55 L Respiratory Rate 18 18 Blood Pressure Pulse Oximetry Oxygen Delivery Fraction of Inspired Oxygen 04/16/25 20:00 04/16/25 20:00 04/16/25 20:00 Temperature Pulse Rate 57 L 57 L Respiratory Rate 18 18 Blood Pressure Pulse Oximetry 95 Oxygen Delivery Mechanical Ventilation Fraction of Inspired Oxygen 30 04/16/25 20:00 04/16/25 20:00 04/16/25 20:00 Temperature 97.1 F L Pulse Rate 61 61 Respiratory Rate 20 Blood Pressure 135/50 L Pulse Oximetry 96 Oxygen Delivery Fraction of Inspired Oxygen 30 04/16/25 20:28 04/16/25 20:28 04/16/25 20:28 Temperature Pulse Rate 55 L 55 L 58 L Respiratory Rate 18 18 Blood Pressure Pulse Oximetry 95 95 Oxygen Delivery Mechanical Ventilation Mechanical Ventilation Fraction of Inspired Oxygen 30 30 04/16/25 20:40 04/16/25 22:00 04/16/25 22:00 Temperature Pulse Rate 58 L 54 L 54 L Respiratory Rate 18 18 18 Blood Pressure Pulse Oximetry Oxygen Delivery Fraction of Inspired Oxygen 04/16/25 22:00 04/16/25 22:00 04/16/25 23:20 Temperature 97.4 F L Pulse Rate 54 L 55 L 53 L Respiratory Rate 18 Blood Pressure 125/44 L Pulse Oximetry 95 95 Oxygen Delivery Mechanical Ventilation Fraction of Inspired Oxygen 30 04/16/25 23:54 04/17/25 00:00 04/17/25 00:00 Temperature 97.6 F Pulse Rate 66 Respiratory Rate 18 Blood Pressure 142/53 H Pulse Oximetry 95 Oxygen Delivery Mechanical Ventilation Fraction of Inspired Oxygen 30 30 04/17/25 00:00 04/17/25 00:00 04/17/25 00:00 Temperature Pulse Rate 57 L 68 70 Respiratory Rate 18 18 Blood Pressure Pulse Oximetry Oxygen Delivery Fraction of Inspired Oxygen 04/17/25 01:06 04/17/25 01:07 04/17/25 02:00 Temperature Pulse Rate 60 60 55 L Respiratory Rate 24 H 24 H 18 Blood Pressure Pulse Oximetry Oxygen Delivery Fraction of Inspired Oxygen 04/17/25 02:00 04/17/25 02:00 04/17/25 02:00 Temperature 97.9 F Pulse Rate 55 L 70 60 Respiratory Rate 18 18 Blood Pressure 131/48 L Pulse Oximetry 94 Oxygen Delivery Fraction of Inspired Oxygen 04/17/25 02:24 04/17/25 02:24 04/17/25 02:36 Temperature Pulse Rate 64 64 57 L Respiratory Rate 19 18 Blood Pressure Pulse Oximetry 97 Oxygen Delivery Mechanical Ventilation Fraction of Inspired Oxygen 30 04/17/25 02:37 04/17/25 02:45 04/17/25 04:00 Temperature Pulse Rate 57 L 66 55 L Respiratory Rate 18 20 18 Blood Pressure Pulse Oximetry Oxygen Delivery Fraction of Inspired Oxygen 04/17/25 04:00 04/17/25 04:00 04/17/25 04:00 Temperature Pulse Rate 57 L Respiratory Rate Blood Pressure Pulse Oximetry 95 Oxygen Delivery Mechanical Ventilation Fraction of Inspired Oxygen 30 30 04/17/25 04:00 04/17/25 04:06 04/17/25 04:06 Temperature 97.9 F Pulse Rate 57 L 61 61 Respiratory Rate 18 18 18 Blood Pressure 141/54 H Pulse Oximetry 97 Oxygen Delivery Fraction of Inspired Oxygen 04/17/25 04:39 04/17/25 06:00 04/17/25 06:00 Temperature Pulse Rate 56 L 58 L 58 L Respiratory Rate 18 18 Blood Pressure Pulse Oximetry 95 Oxygen Delivery Mechanical Ventilation Fraction of Inspired Oxygen 30 04/17/25 06:00 04/17/25 06:00 04/17/25 07:24 Temperature 97.9 F Pulse Rate 57 L 93 58 L Respiratory Rate 18 18 Blood Pressure 122/44 L Pulse Oximetry 96 Oxygen Delivery Fraction of Inspired Oxygen 04/17/25 07:26 04/17/25 08:00 04/17/25 08:00 Temperature 98.1 F Pulse Rate 57 L 58 L Respiratory Rate 18 18 Blood Pressure 124/44 L Pulse Oximetry 94 Oxygen Delivery Mechanical Ventilation Fraction of Inspired Oxygen 30 04/17/25 08:00 04/17/25 08:00 04/17/25 08:00 Temperature Pulse Rate 58 L Respiratory Rate 18 Blood Pressure Pulse Oximetry 94 Oxygen Delivery Mechanical Ventilation Fraction of Inspired Oxygen 30 30 04/17/25 08:00 04/17/25 08:30 04/17/25 08:30 Temperature Pulse Rate 57 L 57 L 57 L Respiratory Rate 18 18 Blood Pressure Pulse Oximetry Oxygen Delivery Fraction of Inspired Oxygen 04/17/25 09:04 04/17/25 09:04 04/17/25 09:17 Temperature Pulse Rate 59 L 59 L 60 Respiratory Rate 18 18 18 Blood Pressure Pulse Oximetry Oxygen Delivery Fraction of Inspired Oxygen 04/17/25 09:17 04/17/25 10:00 04/17/25 10:00 Temperature 98.1 F Pulse Rate 60 56 L 57 L Respiratory Rate 18 18 18 Blood Pressure 127/48 L Pulse Oximetry 93 Oxygen Delivery Fraction of Inspired Oxygen 04/17/25 10:00 04/17/25 10:00 04/17/25 10:44 Temperature Pulse Rate 57 L 57 L 61 Respiratory Rate 18 Blood Pressure Pulse Oximetry 93 Oxygen Delivery Mechanical Ventilation Fraction of Inspired Oxygen 30 04/17/25 12:00 04/17/25 12:00 04/17/25 12:00 Temperature 98.3 F Pulse Rate 56 L 54 L 54 L Respiratory Rate 18 18 18 Blood Pressure 130/46 L Pulse Oximetry 92 Oxygen Delivery Fraction of Inspired Oxygen 04/17/25 12:00 Temperature Pulse Rate Respiratory Rate Blood Pressure Pulse Oximetry 92 Oxygen Delivery Mechanical Ventilation Fraction of Inspired Oxygen 30 Intake/Output Intake/Output: Intake & Output 04/14/25 04/15/25 04/16/25 04/17/25 23:59 23:59 23:59 23:59 Intake Total 2900 4547.1 1737.1 2148.1 Output Total 1680 3050 1150 Balance 2900 2867.1 -1312.9 998.1 Meds/Results Medications: Active Medications Generic Name Dose Route Start Last Admin Trade Name Freq PRN Reason Stop Dose Admin Albuterol/Ipratropium 3 ml 04/15/25 07:30 04/17/25 07:24 Ipratropium 0.5 Mg/Albuterol Sulfate 2.5 Mg Ampul.Neb 3 Ml INHALATION 3 ml Q6HRT FARHANA Administration Dextrose 12.5 gm 04/17/25 09:09 Dextrose 50% 25 Gm/50 Ml Syringe IV PUSH PRN PRN Hypoglycemia Protocol Glucagon 1 mg 04/17/25 09:09 Glucagon For Inj 1 Mg Vial IM PRN PRN Hypoglycemia Protocol Glucose 15 gm 04/17/25 09:09 Glucose Oral Gel 15 Gm Of Glucse In 37.5 Gm Tube PO PRN PRN Hypoglycemia Protocol Fentanyl Citrate 2,500 mcg in 250 mls @ 0 mls/hr 04/15/25 05:10 04/17/25 12:00 Fentanyl 2,500 Mcg/Ns 250 Ml IV CONT 0 mcg/hr .Q0M FARHANA 0 mls/hr Protocol Titration Midazolam HCl 100 mg in 100 mls @ 0 mls/hr 04/15/25 05:10 04/17/25 12:00 Versed 100 Mg/Ns 100 Ml IV CONT 0 mg/hr .Q0M FARHANA 0 mls/hr Protocol Titration Doxycycline Hyclate 100 mg/ 100 mls @ 100 mls/hr 04/15/25 10:15 04/17/25 10:32 Sodium Chloride IVPB 04/19/25 21:59 Infused Q12HR FARHANA Infusion Dextrose 1,000 mls @ 100 mls/hr 04/17/25 09:09 Dextrose 5% 1,000 Ml IVPB PRN PRN Hypoglycemia Protocol Ceftriaxone Sodium 2 gm/ 100 mls @ 200 mls/hr 04/17/25 11:00 04/17/25 12:11 Sodium Chloride IVPB 04/19/25 11:29 200 mls/hr Q24H FARHANA Administration Insulin Aspart 3 - 6 units 04/17/25 12:00 04/17/25 12:13 Insulin Aspart (*Bkc) 100 Units/Ml SUB-Q Not Given Q6HR FARHANA Protocol Multi-Ingred Cream/Lotion/Oil/Oint 1 applic 04/15/25 09:00 04/17/25 09:05 Mineral Oil/White Petrolatum Ointment EACH EYE 1 applic Q12HR FARHANA Administration Pantoprazole Sodium 40 mg 04/15/25 08:00 04/17/25 09:05 Pantoprazole Sodium Iv 40 Mg Vial IV PUSH 40 mg QAM FARHANA Administration Sodium Chloride 10 ml 04/15/25 06:00 04/17/25 12:13 Central Line Flush IV PUSH 10 ml Q8HR FARHANA Administration Sodium Chloride 20 ml 04/15/25 02:07 Central Line Flush IV PUSH PRN PRN after blood draws Radiology Results: ITS Impressions Abdomen X-Ray 04/14/25 20:46 IMPRESSION: 1. Endotracheal tube and orogastric tube in expected positions. 2. Decreased left lung volume with elevation the left hemidiaphragm and patchy airspace opacities throughout the left lung which could represent atelectasis and/or pneumonia. 3. Pulmonary vascular congestion with increased interstitial pattern in the right perihilar region which could represent mild pulmonary edema and/or pneumonia. Head CT 04/15/25 08:50 IMPRESSION: 1. No acute intracranial abnormality. Chest X-Ray 04/17/25 05:49 Impression: 1: Stable retrocardiac consolidation which may represent atelectasis and/or pneumonia. 2: Small left pleural effusion. Labs Labs: Laboratory Results - last 24 hr 04/14/25 04/16/25 04/16/25 20:48 13:13 14:00 WBC RBC Hgb Hct MCV MCH MCHC RDW Plt Count MPV Immature Gran % (Auto) Neut % (Auto) Lymph % (Auto) [place] % (Auto) Eos % (Auto) Baso % (Auto) Lymph # (Auto) [place] # (Auto) Eos # (Auto) Baso # (Auto) Abs Immat Gran (auto) Absolute Neuts (auto) Absolute Nucleated RBC Nucleated RBC % Puncture Site ABG pH ABG pCO2 ABG pO2 ABG PO2/FiO2 Ratio ABG HCO3 ABG O2 Saturation ABG O2 Content ABG Base Excess A-a Gradient Oxyhemoglobin Carboxyhemoglobin Methemoglobin Reduced Hemoglobin Total Hemoglobin O2 Delivery Device O2 Liters/Min Minute Volume Vent Rate Vent Mode FiO2 Tidal Volume PEEP Peak Inspir Pressure Pressure Support Sodium Potassium Chloride Carbon Dioxide Anion Gap BUN Creatinine Estim Creat Clear Calc Estimated GFR Glucose POC Capillary Glucose 140 H 147 H Lactic Acid Calcium Ionized Calcium 4.5 Phosphorus Magnesium Total Bilirubin AST ALT Alkaline Phosphatase Ammonia Total Protein Albumin 04/16/25 04/16/25 04/16/25 14:59 15:59 17:01 WBC RBC Hgb Hct MCV MCH MCHC RDW Plt Count MPV Immature Gran % (Auto) Neut % (Auto) Lymph % (Auto) [place] % (Auto) Eos % (Auto) Baso % (Auto) Lymph # (Auto) [place] # (Auto) Eos # (Auto) Baso # (Auto) Abs Immat Gran (auto) Absolute Neuts (auto) Absolute Nucleated RBC Nucleated RBC % Puncture Site ABG pH ABG pCO2 ABG pO2 ABG PO2/FiO2 Ratio ABG HCO3 ABG O2 Saturation ABG O2 Content ABG Base Excess A-a Gradient Oxyhemoglobin Carboxyhemoglobin Methemoglobin Reduced Hemoglobin Total Hemoglobin O2 Delivery Device O2 Liters/Min Minute Volume Vent Rate Vent Mode FiO2 Tidal Volume PEEP Peak Inspir Pressure Pressure Support Sodium Potassium Chloride Carbon Dioxide Anion Gap BUN Creatinine Estim Creat Clear Calc Estimated GFR Glucose POC Capillary Glucose 139 H 133 H 136 H Lactic Acid Calcium Ionized Calcium Phosphorus Magnesium Total Bilirubin AST ALT Alkaline Phosphatase Ammonia Total Protein Albumin 04/16/25 04/16/25 04/16/25 18:08 19:00 20:06 WBC RBC Hgb Hct MCV MCH MCHC RDW Plt Count MPV Immature Gran % (Auto) Neut % (Auto) Lymph % (Auto) [place] % (Auto) Eos % (Auto) Baso % (Auto) Lymph # (Auto) [place] # (Auto) Eos # (Auto) Baso # (Auto) Abs Immat Gran (auto) Absolute Neuts (auto) Absolute Nucleated RBC Nucleated RBC % Puncture Site ABG pH ABG pCO2 ABG pO2 ABG PO2/FiO2 Ratio ABG HCO3 ABG O2 Saturation ABG O2 Content ABG Base Excess A-a Gradient Oxyhemoglobin Carboxyhemoglobin Methemoglobin Reduced Hemoglobin Total Hemoglobin O2 Delivery Device O2 Liters/Min Minute Volume Vent Rate Vent Mode FiO2 Tidal Volume PEEP Peak Inspir Pressure Pressure Support Sodium Potassium Chloride Carbon Dioxide Anion Gap BUN Creatinine Estim Creat Clear Calc Estimated GFR Glucose POC Capillary Glucose 126 H 139 H 129 H Lactic Acid Calcium Ionized Calcium Phosphorus Magnesium Total Bilirubin AST ALT Alkaline Phosphatase Ammonia Total Protein Albumin 04/16/25 04/16/25 04/16/25 21:05 22:02 23:05 WBC RBC Hgb Hct MCV MCH MCHC RDW Plt Count MPV Immature Gran % (Auto) Neut % (Auto) Lymph % (Auto) [place] % (Auto) Eos % (Auto) Baso % (Auto) Lymph # (Auto) [place] # (Auto) Eos # (Auto) Baso # (Auto) Abs Immat Gran (auto) Absolute Neuts (auto) Absolute Nucleated RBC Nucleated RBC % Puncture Site ABG pH ABG pCO2 ABG pO2 ABG PO2/FiO2 Ratio ABG HCO3 ABG O2 Saturation ABG O2 Content ABG Base Excess A-a Gradient Oxyhemoglobin Carboxyhemoglobin Methemoglobin Reduced Hemoglobin Total Hemoglobin O2 Delivery Device O2 Liters/Min Minute Volume Vent Rate Vent Mode FiO2 Tidal Volume PEEP Peak Inspir Pressure Pressure Support Sodium Potassium Chloride Carbon Dioxide Anion Gap BUN Creatinine Estim Creat Clear Calc Estimated GFR Glucose POC Capillary Glucose 136 H 143 H 146 H Lactic Acid Calcium Ionized Calcium Phosphorus Magnesium Total Bilirubin AST ALT Alkaline Phosphatase Ammonia Total Protein Albumin 04/17/25 04/17/25 04/17/25 00:07 01:04 01:57 WBC RBC Hgb Hct MCV MCH MCHC RDW Plt Count MPV Immature Gran % (Auto) Neut % (Auto) Lymph % (Auto) [place] % (Auto) Eos % (Auto) Baso % (Auto) Lymph # (Auto) [place] # (Auto) Eos # (Auto) Baso # (Auto) Abs Immat Gran (auto) Absolute Neuts (auto) Absolute Nucleated RBC Nucleated RBC % Puncture Site ABG pH ABG pCO2 ABG pO2 ABG PO2/FiO2 Ratio ABG HCO3 ABG O2 Saturation ABG O2 Content ABG Base Excess A-a Gradient Oxyhemoglobin Carboxyhemoglobin Methemoglobin Reduced Hemoglobin Total Hemoglobin O2 Delivery Device O2 Liters/Min Minute Volume Vent Rate Vent Mode FiO2 Tidal Volume PEEP Peak Inspir Pressure Pressure Support Sodium Potassium Chloride Carbon Dioxide Anion Gap BUN Creatinine Estim Creat Clear Calc Estimated GFR Glucose POC Capillary Glucose 137 H 138 H 156 H Lactic Acid Calcium Ionized Calcium Phosphorus Magnesium Total Bilirubin AST ALT Alkaline Phosphatase Ammonia Total Protein Albumin 04/17/25 04/17/25 04/17/25 03:03 04:02 04:40 WBC RBC Hgb Hct MCV MCH MCHC RDW Plt Count MPV Immature Gran % (Auto) Neut % (Auto) Lymph % (Auto) [place] % (Auto) Eos % (Auto) Baso % (Auto) Lymph # (Auto) [place] # (Auto) Eos # (Auto) Baso # (Auto) Abs Immat Gran (auto) Absolute Neuts (auto) Absolute Nucleated RBC Nucleated RBC % Puncture Site Artline ABG pH 7.417 ABG pCO2 35.0 ABG pO2 93.5 ABG PO2/FiO2 Ratio 3.12 ABG HCO3 22.0 ABG O2 Saturation 97.3 ABG O2 Content 14.0 L ABG Base Excess -2.0 A-a Gradient 79.3 Oxyhemoglobin 97.0 Carboxyhemoglobin 0.0 Methemoglobin 0.1 Reduced Hemoglobin 2.9 Total Hemoglobin 10.2 L O2 Delivery Device Ventilator O2 Liters/Min Not Reportable Minute Volume Not Reportable Vent Rate 18 Vent Mode Cmv FiO2 30 Tidal Volume 450 PEEP 8 Peak Inspir Pressure Not Reportable Pressure Support Not Reportable Sodium Potassium Chloride Carbon Dioxide Anion Gap BUN Creatinine Estim Creat Clear Calc Estimated GFR Glucose POC Capillary Glucose 162 H 167 H Lactic Acid Calcium Ionized Calcium Phosphorus Magnesium Total Bilirubin AST ALT Alkaline Phosphatase Ammonia Total Protein Albumin 04/17/25 04/17/25 04/17/25 04:41 04:43 04:55 WBC 8.2 RBC 3.22 L Hgb 9.4 L Hct 29.6 L MCV 91.9 MCH 29.2 MCHC 31.8 L RDW 15.6 H Plt Count 112 L MPV 10.0 Immature Gran % (Auto) 0.2 Neut % (Auto) 69.2 Lymph % (Auto) 17.8 L [place] % (Auto) 9.7 H Eos % (Auto) 2.5 Baso % (Auto) 0.6 Lymph # (Auto) 1.45 [place] # (Auto) 0.8 H Eos # (Auto) 0.2 Baso # (Auto) 0.1 Abs Immat Gran (auto) 0.02 Absolute Neuts (auto) 5.6 Absolute Nucleated RBC 0.000 Nucleated RBC % 0.0 Puncture Site ABG pH ABG pCO2 ABG pO2 ABG PO2/FiO2 Ratio ABG HCO3 ABG O2 Saturation ABG O2 Content ABG Base Excess A-a Gradient Oxyhemoglobin Carboxyhemoglobin Methemoglobin Reduced Hemoglobin Total Hemoglobin O2 Delivery Device O2 Liters/Min Minute Volume Vent Rate Vent Mode FiO2 Tidal Volume PEEP Peak Inspir Pressure Pressure Support Sodium 134 L Potassium 4.2 Chloride 106 Carbon Dioxide 24 Anion Gap 4 BUN 30 H Creatinine 1.06 H Estim Creat Clear Calc 68 Estimated GFR 52 L Glucose 171 H POC Capillary Glucose 157 H Lactic Acid 0.5 L Calcium 9.1 Ionized Calcium Phosphorus 3.6 Magnesium 2.1 Total Bilirubin 0.3 AST 36 ALT 25 Alkaline Phosphatase 122 Ammonia < 9 L Total Protein 5.7 L Albumin 3.0 L 04/17/25 04/17/25 04/17/25 06:09 06:53 08:49 WBC RBC Hgb Hct MCV MCH MCHC RDW Plt Count MPV Immature Gran % (Auto) Neut % (Auto) Lymph % (Auto) [place] % (Auto) Eos % (Auto) Baso % (Auto) Lymph # (Auto) [place] # (Auto) Eos # (Auto) Baso # (Auto) Abs Immat Gran (auto) Absolute Neuts (auto) Absolute Nucleated RBC Nucleated RBC % Puncture Site ABG pH ABG pCO2 ABG pO2 ABG PO2/FiO2 Ratio ABG HCO3 ABG O2 Saturation ABG O2 Content ABG Base Excess A-a Gradient Oxyhemoglobin Carboxyhemoglobin Methemoglobin Reduced Hemoglobin Total Hemoglobin O2 Delivery Device O2 Liters/Min Minute Volume Vent Rate Vent Mode FiO2 Tidal Volume PEEP Peak Inspir Pressure Pressure Support Sodium Potassium Chloride Carbon Dioxide Anion Gap BUN Creatinine Estim Creat Clear Calc Estimated GFR Glucose POC Capillary Glucose 149 H 162 H 172 H Lactic Acid Calcium Ionized Calcium Phosphorus Magnesium Total Bilirubin AST ALT Alkaline Phosphatase Ammonia Total Protein Albumin 04/17/25 11:27 WBC RBC Hgb Hct MCV MCH MCHC RDW Plt Count MPV Immature Gran % (Auto) Neut % (Auto) Lymph % (Auto) [place] % (Auto) Eos % (Auto) Baso % (Auto) Lymph # (Auto) [place] # (Auto) Eos # (Auto) Baso # (Auto) Abs Immat Gran (auto) Absolute Neuts (auto) Absolute Nucleated RBC Nucleated RBC % Puncture Site ABG pH ABG pCO2 ABG pO2 ABG PO2/FiO2 Ratio ABG HCO3 ABG O2 Saturation ABG O2 Content ABG Base Excess A-a Gradient Oxyhemoglobin Carboxyhemoglobin Methemoglobin Reduced Hemoglobin Total Hemoglobin O2 Delivery Device O2 Liters/Min Minute Volume Vent Rate Vent Mode FiO2 Tidal Volume PEEP Peak Inspir Pressure Pressure Support Sodium Potassium Chloride Carbon Dioxide Anion Gap BUN Creatinine Estim Creat Clear Calc Estimated GFR Glucose POC Capillary Glucose 168 H Lactic Acid Calcium Ionized Calcium Phosphorus Magnesium Total Bilirubin AST ALT Alkaline Phosphatase Ammonia Total Protein Albumin Quality VTE Prophylaxis VTE prophylaxis: mechanical ordered
[2025-04-17] MEDS: dexmedeTOMIDine 400 MCG/100 ML 400 MCG/100 ML BAG 7.21 MCG IV CONT (16:49)
[2025-04-17] MEDS: INSULIN ASPART (*BKC) 100 UNITS/ML SUB-Q (23:50)
[2025-04-18] VITALS (32 sets, daily range): BP systolic 145–169; BP diastolic 50–69; PULSE 53–80; RESP 14–21; TEMP 37.2–37.6; O2SAT 92–98
[2025-04-18] MEDS: dexmedeTOMIDine 400 MCG/100 ML 400 MCG/100 ML BAG 14.41 MCG IV CONT (01:43)
[2025-04-18] MEDS: IPRATROPIUM 0.5 MG/ALBUTEROL SULFATE 2.5 MG AMPUL.NEB 3 ML INHALATION ×4 (02:27→20:11)
[2025-04-18 05:00] LABS: Alveolar/Arterial O2 Gradient 110.5 mmHg; Carboxyhemoglobin 0.5 % THb (0-2.0); Fractional Inspired Oxygen 30 %; HCO3 ABG 20.7 mEq/l (22.0-26.0); Methemoglobin ABG 0.3 %THb (0-1.5); Oxygen Content ABG 15.1 %vol (16.0-22.0); Oxygen Saturation ABG 93.8 % (95.0-100.0); PCO2 ABG 31.9 mmHg (35.0-45.0); PO2 ABG 65.9 mmHg (80.0-100.0); PO2 FiO2 Ratio Arterial Blood 2.20 %; Reduced Hemoglobin 6.9 %THb (0-5.0)
[2025-04-18 05:09] LABS: Hematocrit 31.1 % (37.0-47.0); Hemoglobin 9.9 g/dL (12.0-15.0); Immature Granulocyte Percent A 0.4 % (0-0.5); Lymphocytes Absolute Auto 0.96 K/mm3 (0.9-3.2); Mean Corpuscular HGB Conc 31.8 g/dl (32-36); Mean Corpuscular Hemoglobin 29.2 pg (26-34); Mean Corpuscular Volume 91.7 fl (80-100); Nucleated Red Blood Cells Absolute Auto 0.000 K/mm3 (0.0-0.012); Nucleated Red Blood Cells Perc 0.0 % (0.0-0.2); Platelet Count Result 106 k/mm3 (150-375); Red Blood Count 3.39 M/mm3 (4.2-5.4); White Blood Count 7.4 K/mm3 (4.5-10.0)
[2025-04-18 05:16] LABS: Ammonia < 9 umol/L (9-30)
[2025-04-18 05:29] LABS: Alanine Aminotransferase 24 U/L (6-35); Albumin Level 3.2 g/dL (3.5-5.1); Alkaline Phosphatase 136 U/L (38-126); Anion Gap 7 mmol/L (4-12); Aspartate Amino Transferase 29 U/L (14-36); Bilirubin,Total 0.3 mg/dL (0.2-1.3); Blood Urea Nitrogen 37 mg/dL (7-17); Calcium 9.3 mg/dL (8.4-10.2); Carbon Dioxide 22 mmol/L (22-30); Chloride 108 mmol/L (98-107); Estimated CRCL calculation 69 ml/min; Estimated Glomerular Filt Rate 53; Glucose 277 mg/dL (65-110); Magnesium 2.1 mg/dL (1.6-2.3); Potassium 4.4 mmol/L (3.4-5.0); Sodium 137 mmol/L (137-145); Total Protein 6.1 g/dL (6.3-8.2)
[2025-04-18] MEDS: CENTRAL LINE FLUSH 10 ML IV PUSH ×3 (05:49→21:36)
[2025-04-18] MEDS: INSULIN ASPART (*BKC) 100 UNITS/ML SUB-Q (05:56)
[2025-04-18] MEDS: DOXYCYCLINE IV 100 MG in SODIUM CHLORIDE 0.9% IV 100 ML IVPB ×2 (08:52→20:26)
[2025-04-18] MEDS: PANTOPRAZOLE SODIUM IV 40 MG VIAL IV PUSH (08:52)
[2025-04-18] MEDS: VANCOMYCIN 1,250 MG/NS 250 ML 1,250 MG/250 ML BAG 166.67 MG IVPB ×2 (09:36→11:22)
[2025-04-18] MEDS: cefTRIAXone 2 GM in SODIUM CHLORIDE 0.9% IV 100 ML 200 ML IVPB (11:22)
--- NOTE | 2025-04-18 11:42 | WPDINTPN ---
Progress Note: A&P Assessment and Plan (1) Intentional overdose of calcium-channel ryne: Code(s): T46.1X2A - Poisoning by calcium-channel blockers, intentional self-harm, initial encounter Status: Acute Assessment and Plan: Patient with calcium channel ryne/amlodipine overdose causing severe hypotension, bradycardia. oison Control was notified and following and recommended insulin infusion -received multiple doses of calcium chloride and calcium gluconate -calcium level is 9.1 this morning -OFF epinephrine infusion and insulin infusion, discontinue D5 half-normal saline -blood pressure is slightly higher, will add hydralazine p.r.n. -heart rates in this upper 60s and 70s, so that has improved -continue to monitor closely (2) Intentional drug overdose: Code(s): T50.902A - Poisoning by unspecified drugs, medicaments and biological substances, intentional self-harm, initial encounter Status: Acute Assessment and Plan: Patient overdosed on multiple other medications, most concerning are Tylenol, losartan, baclofen, aripiprazole, duloxetine, gabapentin, clopidogrel, rivaroxaban -INR is 1.3 -status post IV fluids, -continue monitor urine output (3) Suicide attempt: Code(s): T14.91XA - Suicide attempt, initial encounter Status: Acute Assessment and Plan: Likely suicidal attempt/ideation - According the family she did tell them just over life, cannot do it anymore -once patient is medically stable will have care coordination and crisis management evaluate the patient for inpatient psych (4) Shock circulatory: Code(s): R57.9 - Shock, unspecified Status: Acute Assessment and Plan: Circulatory shock likely related to losartan, amlodipine and multiple other medications -lactic acid has normalized -off epinephrine and insulin infusion -04/14/2025 urine cultures growing E coli, sensitivities pending, continue ceftriaxone -04/14/2025: Blood cultures negative so far -04/15/2025: Sputum cultures growing Staph aureus, sensitivities pending Continue ceftriaxone, doxycycline and vancomycin (5) Respiratory failure: Code(s): J96.90 - Respiratory failure, unspecified, unspecified whether with hypoxia or hypercapnia Status: Acute Assessment and Plan: Acute respiratory failure likely related to altered mental status, aspiration pneumonia due to emesis upon arrival to the ER -continue CMV mode of ventilation, peep of 8, 35% FiO2 -ABGs and chest x-ray reviewed, ventilator adjusted -continue bronchodilator -off all sedation, patient placed on SBT, doing well, will obtain ABGs and evaluate for extubation (6) Aspiration pneumonia: Code(s): J69.0 - Pneumonitis due to inhalation of food and vomit Status: Acute Assessment and Plan: Patient had emesis with altered mental status, chest x-ray showed possible atelectasis versus pneumonia likely aspiration -continue ceftriaxone, vancomycin and doxycycline (04/15) (7) Diabetes mellitus: Code(s): E11.9 - Type 2 diabetes mellitus without complications Status: Acute Assessment and Plan: Accu-Cheks and sliding scale insulin (8) Electrolyte imbalance: Code(s): E87.8 - Other disorders of electrolyte and fluid balance, not elsewhere classified Status: Acute Assessment and Plan: Potassium improved after Lokelma x1 and bicarb (04/16) Continue to monitor Plan DVT prophylaxis: SCDs, patient is overdosed on rivaroxaban, aspirin, clopidogrel, bruising noted around central line, will hold off chemoprophylaxis at this time due to increase risk of bleeding Stress ulcer prophylaxis: Protonix Nutrition: Holding tube feeds for possible extubation Code Status: Full code Critical Care Time Spent: 32 minutes Updated patient's mother and sister doing rounds, answered all the questions Due to a high probability of clinically significant, life threatening deterioration, the patient required my highest level of preparedness to intervene emergently and I personally spent this critical care time directly and personally managing the patient. This critical care time included obtaining a history; examining the patient; pulse oximetry; ordering and review of studies; arranging urgent treatment with development of a management plan; evaluation of patient's response to treatment; frequent reassessment; and discussions with other providers. It was exclusive of separately billable procedures and treating other patients and teaching time. Please see Assessment and Plan section and the rest of the note for further information on patient assessment and treatment This dictation may have been done utilizing a voice recognition system. Attempts have been made to correct errors. However, there may be uncorrected grammatical, spelling, and recognitions errors present. Subjective Date/time seen: 04/18/25 11:42 Interval history: Reason for consult: Intentional poly medication overdose, acute respiratory failure, altered mental status, aspiration pneumonia, acute kidney injury, lactic acidosis, suicidal ideation 04/15: Arterial line placed 04/18/2025: Patient seen examined the ICU, remains intubated on CMV mode of ventilation, peep of 8, 30% FiO2. Patient is afebrile, adequate urine output. Not any pressors or insulin infusion. Blood pressures have been slightly higher this morning. Tolerating tube feeds. Afebrile, adequate urine output and hemodynamically stable. Creatinine has normalized. Heart rate is improved this morning to upper 60s and 70s Review of Systems Review of Systems: ROS unobtainable: Yes unobtainable due to endotracheal tube, unobtainable due to medical condition and unobtainable due to mental status Exam Narrative: General: Intubated off sedation, a little uncomfortable with the ETT HEENT:? Pupils equal and reactive, sclera is clear, ETT in place Neck:? Supple Respiratory:? Clear to auscultation bilaterally, decreased at bases Lt > Rt, no wheezing, adequate air entry Cardiac:? S1-S2 is normal, regular rate and rhythm in the 60s and 70s Abdomen:? 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 Intubated, off sedation, patient is awake, alert, opens her eyes, nods to questions but does not follows commands in any extremities Skin:? Multiple healing wounds on the bilateral lower extremity Psych:? Unable to assess at this time Objective Data Vital Signs Vital Signs: Vital Signs - 24 hr 04/17/25 12:00 04/17/25 12:00 04/17/25 12:00 Temperature 98.3 F Pulse Rate 56 L 54 L 54 L Respiratory Rate 18 18 18 Blood Pressure 130/46 L Pulse Oximetry 92 Oxygen Delivery Fraction of Inspired Oxygen 04/17/25 12:00 04/17/25 12:00 04/17/25 12:00 Temperature Pulse Rate 56 L Respiratory Rate Blood Pressure Pulse Oximetry 92 Oxygen Delivery Mechanical Ventilation Fraction of Inspired Oxygen 30 30 04/17/25 14:00 04/17/25 14:00 04/17/25 14:00 Temperature 98.6 F Pulse Rate 70 61 61 Respiratory Rate 28 H 18 18 Blood Pressure 142/52 H Pulse Oximetry 92 Oxygen Delivery Fraction of Inspired Oxygen 04/17/25 14:00 04/17/25 14:32 04/17/25 14:34 Temperature Pulse Rate 61 68 71 Respiratory Rate 18 Blood Pressure Pulse Oximetry 92 Oxygen Delivery Mechanical Ventilation Fraction of Inspired Oxygen 04/17/25 16:00 04/17/25 16:00 04/17/25 16:00 Temperature 99.1 F Pulse Rate 61 60 Respiratory Rate 18 Blood Pressure 133/44 L Pulse Oximetry 95 95 Oxygen Delivery Mechanical Ventilation Fraction of Inspired Oxygen 30 04/17/25 16:00 04/17/25 16:49 04/17/25 17:10 Temperature Pulse Rate 74 72 Respiratory Rate 18 Blood Pressure Pulse Oximetry 94 Oxygen Delivery Mechanical Ventilation Fraction of Inspired Oxygen 30 04/17/25 18:00 04/17/25 18:00 04/17/25 18:01 Temperature 99.2 F Pulse Rate 58 L 59 L 57 L Respiratory Rate 18 18 Blood Pressure 130/47 L Pulse Oximetry 95 Oxygen Delivery Fraction of Inspired Oxygen 04/17/25 20:00 04/17/25 20:00 04/17/25 20:00 Temperature Pulse Rate 58 L Respiratory Rate 18 Blood Pressure Pulse Oximetry 98 Oxygen Delivery Mechanical Ventilation Fraction of Inspired Oxygen 30 30 04/17/25 20:00 04/17/25 20:00 04/17/25 20:45 Temperature 99 F Pulse Rate 58 L 58 L 59 L Respiratory Rate 18 18 Blood Pressure 153/53 H Pulse Oximetry 98 Oxygen Delivery Fraction of Inspired Oxygen 04/17/25 20:53 04/17/25 20:56 04/17/25 22:00 Temperature Pulse Rate 61 59 L 65 Respiratory Rate 18 Blood Pressure Pulse Oximetry 99 Oxygen Delivery Mechanical Ventilation Fraction of Inspired Oxygen 30 04/17/25 22:00 04/17/25 22:00 04/17/25 23:30 Temperature 99.1 F Pulse Rate 60 62 55 L Respiratory Rate 18 18 Blood Pressure 130/47 L Pulse Oximetry 97 94 Oxygen Delivery Mechanical Ventilation Fraction of Inspired Oxygen 30 04/18/25 00:00 04/18/25 00:00 04/18/25 00:00 Temperature Pulse Rate 60 60 Respiratory Rate 18 18 Blood Pressure Pulse Oximetry 97 Oxygen Delivery Mechanical Ventilation Fraction of Inspired Oxygen 30 30 04/18/25 00:00 04/18/25 00:00 04/18/25 01:43 Temperature 99.1 F Pulse Rate 61 58 L 58 L Respiratory Rate 20 18 Blood Pressure 145/55 H Pulse Oximetry 95 Oxygen Delivery Fraction of Inspired Oxygen 04/18/25 01:43 04/18/25 02:00 04/18/25 02:00 Temperature 99.0 F Pulse Rate 59 L 55 L 58 L Respiratory Rate 18 18 Blood Pressure 148/55 H Pulse Oximetry 95 Oxygen Delivery Fraction of Inspired Oxygen 04/18/25 02:00 04/18/25 02:29 04/18/25 02:30 Temperature Pulse Rate 58 L 56 L 56 L Respiratory Rate 18 18 Blood Pressure Pulse Oximetry 96 Oxygen Delivery Mechanical Ventilation Fraction of Inspired Oxygen 30 04/18/25 02:37 04/18/25 04:00 04/18/25 04:00 Temperature Pulse Rate 57 L Respiratory Rate 18 Blood Pressure Pulse Oximetry Oxygen Delivery Mechanical Ventilation Fraction of Inspired Oxygen 30 30 04/18/25 04:00 04/18/25 04:00 04/18/25 04:05 Temperature 99.1 F Pulse Rate 56 L 56 L 59 L Respiratory Rate 18 18 Blood Pressure 149/52 H Pulse Oximetry 95 Oxygen Delivery Fraction of Inspired Oxygen 04/18/25 05:05 04/18/25 06:00 04/18/25 06:00 Temperature 99.0 F Pulse Rate 55 L 53 L 54 L Respiratory Rate 18 Blood Pressure 155/53 H Pulse Oximetry 96 95 Oxygen Delivery Mechanical Ventilation Fraction of Inspired Oxygen 30 04/18/25 06:15 04/18/25 07:00 04/18/25 08:00 Temperature 99.1 F Pulse Rate 55 L 56 L 57 L Respiratory Rate 18 18 18 Blood Pressure 155/53 H Pulse Oximetry 94 Oxygen Delivery Fraction of Inspired Oxygen 04/18/25 08:00 04/18/25 08:00 04/18/25 08:10 Temperature Pulse Rate 57 L 57 L Respiratory Rate 18 21 H Blood Pressure Pulse Oximetry 97 Oxygen Delivery Mechanical Ventilation Fraction of Inspired Oxygen 30 04/18/25 08:15 04/18/25 08:20 04/18/25 08:51 Temperature Pulse Rate 63 64 62 Respiratory Rate 19 20 Blood Pressure Pulse Oximetry 93 Oxygen Delivery Mechanical Ventilation Fraction of Inspired Oxygen 30 04/18/25 09:50 04/18/25 10:00 04/18/25 11:10 Temperature 99.2 F Pulse Rate 70 63 74 Respiratory Rate 14 Blood Pressure 167/50 H Pulse Oximetry 97 97 98 Oxygen Delivery Mechanical Ventilation Mechanical Ventilation Fraction of Inspired Oxygen 30 30 Intake/Output Intake/Output: Intake & Output 04/15/25 04/16/25 04/17/25 04/18/25 23:59 23:59 23:59 23:59 Intake Total 4547.1 1737.1 3026.5 242.9 Output Total 1680 3050 2350 1600 Balance 2867.1 -1312.9 676.5 -1357.1 Meds/Results Medications: Active Medications Generic Name Dose Route Start Last Admin Trade Name Freq PRN Reason Stop Dose Admin Albuterol/Ipratropium 3 ml 04/15/25 07:30 04/18/25 08:10 Ipratropium 0.5 Mg/Albuterol Sulfate 2.5 Mg Ampul.Neb 3 Ml INHALATION 3 ml Q6HRT FARHANA Administration Dextrose 12.5 gm 04/17/25 09:09 Dextrose 50% 25 Gm/50 Ml Syringe IV PUSH PRN PRN Hypoglycemia Protocol Glucagon 1 mg 04/17/25 09:09 Glucagon For Inj 1 Mg Vial IM PRN PRN Hypoglycemia Protocol Glucose 15 gm 04/17/25 09:09 Glucose Oral Gel 15 Gm Of Glucse In 37.5 Gm Tube PO PRN PRN Hypoglycemia Protocol Doxycycline Hyclate 100 mg/ 100 mls @ 100 mls/hr 04/15/25 10:15 04/18/25 09:55 Sodium Chloride IVPB 04/19/25 21:59 Infused Q12HR FARHANA Infusion Dextrose 1,000 mls @ 100 mls/hr 04/17/25 09:09 Dextrose 5% 1,000 Ml IVPB PRN PRN Hypoglycemia Protocol Ceftriaxone Sodium 2 gm/ 100 mls @ 200 mls/hr 04/17/25 11:00 04/18/25 11:22 Sodium Chloride IVPB 04/19/25 11:29 200 mls/hr Q24H FARHANA Administration Dexmedetomidine HCl 400 mcg in 100 mls @ 0 mls/hr 04/17/25 16:50 04/18/25 08:51 Precedex 400 Mcg/100 Ml IV CONT 0 mcg/kg/hr .Q0M FARHANA 0 mls/hr Protocol Titration Vancomycin HCl 1,250 mg in 250 mls @ 166.667 mls/hr 04/18/25 10:30 04/18/25 11:22 Vancomycin 1,250 Mg/Ns 250 Ml IVPB 04/18/25 11:59 166.67 mls/hr ONCE ONE Administration Vancomycin HCl 1,500 mg in 500 mls @ 250 mls/hr 04/19/25 03:00 Vancomycin 1,500 Mg/Ns 500 Ml IVPB Q18H FARHANA Insulin Aspart 3 - 6 units 04/17/25 12:00 04/18/25 05:56 Insulin Aspart (*Bkc) 100 Units/Ml SUB-Q 4 units Q6HR FARHANA Administration Protocol Multi-Ingred Cream/Lotion/Oil/Oint 1 applic 04/15/25 09:00 04/18/25 08:52 Mineral Oil/White Petrolatum Ointment EACH EYE Not Given Q12HR FARHANA Pantoprazole Sodium 40 mg 04/15/25 08:00 04/18/25 08:52 Pantoprazole Sodium Iv 40 Mg Vial IV PUSH 40 mg QAM FARHANA Administration Sodium Chloride 10 ml 04/15/25 06:00 04/18/25 05:49 Central Line Flush IV PUSH 10 ml Q8HR FARHANA Administration Sodium Chloride 20 ml 04/15/25 02:07 Central Line Flush IV PUSH PRN PRN after blood draws Radiology Results: ITS Impressions Abdomen X-Ray 04/14/25 20:46 IMPRESSION: 1. Endotracheal tube and orogastric tube in expected positions. 2. Decreased left lung volume with elevation the left hemidiaphragm and patchy airspace opacities throughout the left lung which could represent atelectasis and/or pneumonia. 3. Pulmonary vascular congestion with increased interstitial pattern in the right perihilar region which could represent mild pulmonary edema and/or pneumonia. Head CT 04/15/25 08:50 IMPRESSION: 1. No acute intracranial abnormality. Chest X-Ray 04/18/25 06:23 Impression: 1: Focal consolidation left lung base which may represent pneumonia and/or atelectasis. 2: Cardiomegaly with probable mild interstitial edema. Labs Labs: Laboratory Results - last 24 hr 04/14/25 04/17/25 04/17/25 19:48 17:39 23:49 WBC RBC Hgb Hct MCV MCH MCHC RDW Plt Count MPV Immature Gran % (Auto) Neut % (Auto) Lymph % (Auto) Weber % (Auto) Eos % (Auto) Baso % (Auto) Lymph # (Auto) Weber # (Auto) Eos # (Auto) Baso # (Auto) Abs Immat Gran (auto) Absolute Neuts (auto) Absolute Nucleated RBC Nucleated RBC % ABG pH ABG pCO2 ABG pO2 ABG PO2/FiO2 Ratio ABG HCO3 ABG O2 Saturation ABG O2 Content ABG Base Excess A-a Gradient Oxyhemoglobin Carboxyhemoglobin Methemoglobin Reduced Hemoglobin Total Hemoglobin FiO2 Sodium Potassium Chloride Carbon Dioxide Anion Gap BUN Creatinine Estim Creat Clear Calc Estimated GFR Glucose POC Capillary Glucose 228 H 200 H 225 H Calcium Phosphorus Magnesium Total Bilirubin AST ALT Alkaline Phosphatase Ammonia Total Protein Albumin 04/18/25 04:56 WBC 7.4 RBC 3.39 L Hgb 9.9 L Hct 31.1 L MCV 91.7 MCH 29.2 MCHC 31.8 L RDW 15.5 H Plt Count 106 L MPV 10.2 Immature Gran % (Auto) 0.4 Neut % (Auto) 75.2 H Lymph % (Auto) 13.0 L Weber % (Auto) 8.1 Eos % (Auto) 2.8 Baso % (Auto) 0.5 Lymph # (Auto) 0.96 Weber # (Auto) 0.6 Eos # (Auto) 0.2 Baso # (Auto) 0.0 Abs Immat Gran (auto) 0.03 Absolute Neuts (auto) 5.5 Absolute Nucleated RBC 0.000 Nucleated RBC % 0.0 ABG pH 7.430 ABG pCO2 31.9 L ABG pO2 65.9 L ABG PO2/FiO2 Ratio 2.20 ABG HCO3 20.7 L ABG O2 Saturation 93.8 L ABG O2 Content 15.1 L ABG Base Excess -2.8 A-a Gradient 110.5 Oxyhemoglobin 92.3 Carboxyhemoglobin 0.5 Methemoglobin 0.3 Reduced Hemoglobin 6.9 H Total Hemoglobin 11.6 L FiO2 30 Sodium 137 Potassium 4.4 Chloride 108 H Carbon Dioxide 22 Anion Gap 7 BUN 37 H Creatinine 1.04 H Estim Creat Clear Calc 69 Estimated GFR 53 L Glucose 277 H POC Capillary Glucose Calcium 9.3 Phosphorus 3.7 Magnesium 2.1 Total Bilirubin 0.3 AST 29 ALT 24 Alkaline Phosphatase 136 H Ammonia < 9 L Total Protein 6.1 L Albumin 3.2 L Quality VTE Prophylaxis VTE prophylaxis: mechanical ordered
--- NOTE | 2025-04-18 11:51 | PCNFU ---
Nutrition Follow-Up Complete: Suboptimal Energy Intake as related to mechanical as evidenced by NPO. Goal: Meet estimated nutritional needs Patient will continue current goal. Pt current nutrition is NPO. Last recorded weight is 143.6 kg, up from 141 kg on admit. Bowel Motility: No BM reported. Labs Reviewed:Glu 217, BUN 37, Cr 1.04, Alb 3.2, Hct 31.1, Hgb 9.9 Meds Noted: Protonix, NovoLog Skin: WNL Additional Notes: Patient current with mechanical vent. Plans for breathing trial today and extubate. Tube feedings are currently on hold. Will monitor weight, labs, skin, diet orders, meds, every Monday and Monday.
[2025-04-18 11:55] LABS: Alveolar/Arterial O2 Gradient 110.4 mmHg; Fractional Inspired Oxygen 30 %; HCO3 ABG 21.4 mEq/l (22.0-26.0); Oxygen Content ABG 13.4 %vol (16.0-22.0); Oxygen Saturation ABG 91.8 % (95.0-100.0); PCO2 ABG 35.7 mmHg (35.0-45.0); PO2 ABG 61.6 mmHg (80.0-100.0); PO2 FiO2 Ratio Arterial Blood 2.05 %
[2025-04-18 11:57] LABS: Liters per Minute 0.0 LPM; Modified Allen's Test Pass; Site Drawn LEFT RADIAL
[2025-04-18 11:58] LABS: Arterial Blood Gas Pressure Support 8 cmH2O
--- NOTE | 2025-04-18 14:54 | PCSTNOTE ---
Please refer to the Modified Barium Swallow Evaluation in the EMR. The above patient was seen for a BSE due to post-extubation this morning. Pt was intubated x4 days. Pt was positioned upright in the bed; several family members were present who responded to questions for her, but when the pt did respond, vocal quality was clear and appeared strong. Pt just completed a breathing treatment with RT which caused some concern that pt would have some residual coughing, which could make determining true dysphagia difficult. Pt was noted to be edentulous; ST was informed that her dentures were at home and that she doesn't usually eat without them. Pt followed commands for an oral exam, which revealed good labial and lingual strength and ROM. Pt was presented with tsp thin liquids, tsp amounts of pudding, cup sips of water, tsp amounts of mildly thick liquids. Pt refused a crumbled cracker in pudding; Oral stage: leakage with the water trials at times when taken via a spoon which was felt to be related to her lack of awareness. Also noted was excessive lingual pumping, but no residue or pocketing was noted. Pt presents with a thick neck, which prevented the ability for ST to palpate and determine if laryngeal elevation was adequate. After the trials of thin liquid and mildly thick liquids, pt was noted to cough/exhibited overt s/s of aspiration. After the overt s/s of aspiration with the mildly thick liquids, testing was discontinued. MBS was felt to be necessary in order to further assess swallow function, determine a safe diet, and an appropriate POC. Impression: suspected dysphagia as pt exhibited overt s/s of aspiration, i.e.coughing after the trials of thin liquid and mildly thick liquid. ST spoke with JES Crao and Dr Ibrahim and felt that an MBS should be completed on this date due to xray not being able to complete the testing for 3 more days. However, RN later notified ST that the pt's O2 level desated after the BSE, and the MBS is being deferred due to pt being too unstable to go to xray. It was suggested that ST begin laryngeal exercises and complete the MBS when the pt is more stable and X-ray is available. POC therefore was established to strengthen laryngeal adduction and elevation. One ice chip at a time is also recommended in order to facilitate swallowing and prevent further swallow atrophy.
[2025-04-19] VITALS (20 sets, daily range): BP systolic 143–184; BP diastolic 46–63; PULSE 62–632; RESP 16–24; TEMP 36.6–37.6; O2SAT 88–99
[2025-04-19] MEDS: IPRATROPIUM 0.5 MG/ALBUTEROL SULFATE 2.5 MG AMPUL.NEB 3 ML INHALATION ×4 (02:27→19:42)
[2025-04-19] MEDS: VANCOMYCIN 1,500 MG/NS 500 ML 1,500 MG/500 ML BAG 250 MG IVPB ×2 (02:56→21:55)
[2025-04-19 03:56] LABS: Hematocrit 30.8 % (37.0-47.0); Hemoglobin 9.5 g/dL (12.0-15.0); Immature Granulocyte Percent A 0.4 % (0-0.5); Lymphocytes Absolute Auto 0.99 K/mm3 (0.9-3.2); Mean Corpuscular HGB Conc 30.8 g/dl (32-36); Mean Corpuscular Hemoglobin 29.1 pg (26-34); Mean Corpuscular Volume 94.2 fl (80-100); Nucleated Red Blood Cells Absolute Auto 0.000 K/mm3 (0.0-0.012); Nucleated Red Blood Cells Perc 0.0 % (0.0-0.2); Platelet Count Result 116 k/mm3 (150-375); Red Blood Count 3.27 M/mm3 (4.2-5.4); White Blood Count 8.1 K/mm3 (4.5-10.0)
[2025-04-19 04:10] LABS: Alanine Aminotransferase 22 U/L (6-35); Albumin Level 3.2 g/dL (3.5-5.1); Alkaline Phosphatase 132 U/L (38-126); Anion Gap 6 mmol/L (4-12); Aspartate Amino Transferase 29 U/L (14-36); Bilirubin,Total 0.4 mg/dL (0.2-1.3); Blood Urea Nitrogen 36 mg/dL (7-17); Calcium 9.3 mg/dL (8.4-10.2); Carbon Dioxide 25 mmol/L (22-30); Chloride 112 mmol/L (98-107); Estimated CRCL calculation 69 ml/min; Estimated Glomerular Filt Rate 52; Glucose 174 mg/dL (65-110); Magnesium 2.2 mg/dL (1.6-2.3); Potassium 4.0 mmol/L (3.4-5.0); Sodium 143 mmol/L (137-145); Total Protein 6.1 g/dL (6.3-8.2)
[2025-04-19] MEDS: CENTRAL LINE FLUSH 10 ML IV PUSH ×3 (06:05→20:39)
--- NOTE | 2025-04-19 07:30 | PM.IMPN ---
Progress Note: A&P Assessment and Plan (1) Intentional overdose of calcium-channel ryne: Code(s): T46.1X2A - Poisoning by calcium-channel blockers, intentional self-harm, initial encounter Status: Acute Assessment and Plan: Patient with calcium channel ryne/amlodipine overdose causing severe hypotension, bradycardia. Poison Control was notified and following and recommended insulin infusion Status post multiple doses of calcium chloride, calcium gluconate, epinephrine infusion, insulin infusion BP 157/54, heart rate 69-74 P.r.n. hydralazine for blood pressure control until patient starts swallowing Continue to monitor vital signs (2) Intentional drug overdose: Code(s): T50.902A - Poisoning by unspecified drugs, medicaments and biological substances, intentional self-harm, initial encounter Status: Acute Assessment and Plan: Patient overdosed on multiple other medications, most concerning are Tylenol, losartan, baclofen, aripiprazole, duloxetine, gabapentin, clopidogrel, rivaroxaban -INR is 1.3 -status post IV fluids, -continue monitor urine output (3) Suicide attempt: Code(s): T14.91XA - Suicide attempt, initial encounter Status: Acute Assessment and Plan: Likely suicidal attempt/ideation - According the family she did tell them just over life, cannot do it anymore -once patient is medically stable will have care coordination and crisis management evaluate the patient for inpatient psych (4) Shock circulatory: Code(s): R57.9 - Shock, unspecified Status: Acute Assessment and Plan: Circulatory shock likely related to losartan, amlodipine and multiple other medications Resolved, lactic acid normalized, blood culture no growth to date 04/14/2025, The sputum grows E coli and MRSA, urine culture grows E coli- susceptible for ceftriaxone Complete ceftriaxone 5 days Continue doxycycline and vancomycin for now Upon discharge we can switch to linezolid (5) Respiratory failure: Code(s): J96.90 - Respiratory failure, unspecified, unspecified whether with hypoxia or hypercapnia Status: Acute Assessment and Plan: Acute respiratory failure likely related to altered mental status, aspiration pneumonia due to emesis upon arrival to the ER off of mechanical ventilation and intubation Continue bronchodilator, chest physiotherapy, and incentive spirometry CPAP/BiPAP at HS p.r.n. (6) Aspiration pneumonia: Code(s): J69.0 - Pneumonitis due to inhalation of food and vomit Status: Acute Assessment and Plan: Patient had emesis with altered mental status, chest x-ray showed possible atelectasis versus pneumonia likely aspiration -continue ceftriaxone, vancomycin and doxycycline (04/15) (7) Diabetes mellitus: Code(s): E11.9 - Type 2 diabetes mellitus without complications Status: Acute Assessment and Plan: At home she takes NovoLog 2 units t.i.d. , Soliqua (/) 45 units b.i.d. POCT, sliding scale, hypoglycemia protocol (8) Electrolyte imbalance: Code(s): E87.8 - Other disorders of electrolyte and fluid balance, not elsewhere classified Status: Acute Assessment and Plan: Potassium improved after Lokelma x1 and bicarb (04/16) Continue to monitor (9) Peripheral arterial disease with history of revascularization: Code(s): I73.9 - Peripheral vascular disease, unspecified; Z98.890 - Other specified postprocedural states Status: Acute Assessment and Plan: History of revascularization and stent placement Continue home does Xarelto 2.5 mg b.i.d. and Plavix 75 mg p.o. daily, aspirin 81 mg daily, atorvastatin 80 mg HS Time Spent With Patient Time: 35 minute Subjective Date/time seen: 04/19/25 07:30 Interval history: Patient was seen and evaluated in ICU. Were on 2 L nasal cannula. Tachypneic. Morbidly obese. Left BKA. Patient is on DNR/DNI. Exam Narrative: General: Morbid obese HEENT:? Pupils equal and reactive, sclera is clear Neck:? Supple Respiratory:? Clear to auscultation bilaterally, no wheezing/rhonchi/crackles Cardiac:? Regular rate rhythm, S1 and S2 appreciated. No murmur/gallop/regurgitation Abdomen:? 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 Alert and oriented to person, place, and situation Skin:? Multiple healing wounds on the bilateral lower extremity Psych:? Mood appropriate Objective Data Vital Signs Vital Signs: Vital Signs - 24 hr 04/18/25 08:00 04/18/25 08:00 04/18/25 08:00 Temperature 37.3 C Pulse Rate 57 L 57 L Respiratory Rate 18 18 Blood Pressure 155/53 H Pulse Oximetry 94 97 Oxygen Delivery Mechanical Ventilation Oxygen Flow Rate Fraction of Inspired Oxygen 30 04/18/25 08:00 04/18/25 08:00 04/18/25 08:10 Temperature Pulse Rate 61 57 L Respiratory Rate 21 H Blood Pressure Pulse Oximetry Oxygen Delivery Oxygen Flow Rate Fraction of Inspired Oxygen 30 04/18/25 08:15 04/18/25 08:20 04/18/25 08:51 Temperature Pulse Rate 63 64 62 Respiratory Rate 19 20 Blood Pressure Pulse Oximetry 93 Oxygen Delivery Mechanical Ventilation Oxygen Flow Rate Fraction of Inspired Oxygen 30 04/18/25 09:50 04/18/25 10:00 04/18/25 10:00 Temperature 37.3 C Pulse Rate 70 63 63 Respiratory Rate 14 Blood Pressure 167/50 H Pulse Oximetry 97 97 Oxygen Delivery Mechanical Ventilation Oxygen Flow Rate Fraction of Inspired Oxygen 30 04/18/25 10:00 04/18/25 11:10 04/18/25 12:00 Temperature 37.3 C Pulse Rate 63 74 72 Respiratory Rate 14 19 Blood Pressure 169/51 H Pulse Oximetry 98 92 Oxygen Delivery Mechanical Ventilation Oxygen Flow Rate Fraction of Inspired Oxygen 30 04/18/25 12:00 04/18/25 12:00 04/18/25 12:00 Temperature Pulse Rate 72 72 Respiratory Rate 19 19 Blood Pressure Pulse Oximetry 92 Oxygen Delivery Nasal Cannula Oxygen Flow Rate 3 Fraction of Inspired Oxygen 04/18/25 12:00 04/18/25 12:00 04/18/25 12:08 Temperature Pulse Rate 74 Respiratory Rate Blood Pressure Pulse Oximetry 93 Oxygen Delivery Nasal Cannula Oxygen Flow Rate 3 Fraction of Inspired Oxygen 30 04/18/25 13:36 04/18/25 13:45 04/18/25 14:00 Temperature 37.2 C Pulse Rate 79 77 79 Respiratory Rate 20 19 18 Blood Pressure 163/69 H Pulse Oximetry 95 Oxygen Delivery Oxygen Flow Rate Fraction of Inspired Oxygen 04/18/25 14:00 04/18/25 16:00 04/18/25 16:00 Temperature 37.2 C Pulse Rate 79 76 Respiratory Rate 15 Blood Pressure 161/51 H Pulse Oximetry 96 96 Oxygen Delivery Nasal Cannula Oxygen Flow Rate 5 Fraction of Inspired Oxygen 04/18/25 16:00 04/18/25 18:00 04/18/25 18:00 Temperature 37.4 C Pulse Rate 80 77 77 Respiratory Rate 18 Blood Pressure 154/51 H Pulse Oximetry 97 Oxygen Delivery Oxygen Flow Rate Fraction of Inspired Oxygen 04/18/25 20:00 04/18/25 20:00 04/18/25 20:00 Temperature 37.4 C Pulse Rate 72 73 Respiratory Rate 16 Blood Pressure 151/50 H Pulse Oximetry 98 98 Oxygen Delivery Nasal Cannula Oxygen Flow Rate 5 Fraction of Inspired Oxygen 04/18/25 20:12 04/18/25 20:15 04/18/25 20:19 Temperature Pulse Rate 73 71 Respiratory Rate 18 18 Blood Pressure Pulse Oximetry 96 Oxygen Delivery Nasal Cannula Oxygen Flow Rate 5 Fraction of Inspired Oxygen 04/18/25 22:00 04/18/25 22:00 04/19/25 00:00 Temperature 37.6 C H 37.6 C H Pulse Rate 80 80 69 Respiratory Rate 20 16 Blood Pressure 160/50 H 151/46 H Pulse Oximetry 95 94 Oxygen Delivery Oxygen Flow Rate Fraction of Inspired Oxygen 04/19/25 00:00 04/19/25 00:00 04/19/25 02:00 Temperature 37.4 C Pulse Rate 72 68 Respiratory Rate 20 Blood Pressure 157/54 H Pulse Oximetry 94 94 Oxygen Delivery Nasal Cannula Oxygen Flow Rate 3 Fraction of Inspired Oxygen 04/19/25 02:00 04/19/25 02:00 04/19/25 02:27 Temperature Pulse Rate 68 67 Respiratory Rate 20 22 H Blood Pressure Pulse Oximetry 88 L Oxygen Delivery Nasal Cannula Oxygen Flow Rate 6 Fraction of Inspired Oxygen 04/19/25 02:33 04/19/25 04:00 04/19/25 04:00 Temperature 37.1 C Pulse Rate 68 66 66 Respiratory Rate 19 21 H Blood Pressure 143/46 H Pulse Oximetry 95 Oxygen Delivery Oxygen Flow Rate Fraction of Inspired Oxygen 04/19/25 04:00 04/19/25 06:00 04/19/25 06:00 Temperature 36.9 C Pulse Rate 63 632 H Respiratory Rate 22 H Blood Pressure 145/54 H Pulse Oximetry 94 99 Oxygen Delivery Nasal Cannula Oxygen Flow Rate 3 Fraction of Inspired Oxygen 04/19/25 06:00 Temperature Pulse Rate Respiratory Rate Blood Pressure Pulse Oximetry 99 Oxygen Delivery Nasal Cannula Oxygen Flow Rate 3 Fraction of Inspired Oxygen Intake/Output Intake/Output: Intake & Output 04/16/25 04/17/25 04/18/25 04/19/25 23:59 23:59 23:59 23:59 Intake Total 1737.1 3026.5 942.9 500 Output Total 3050 2350 3900 1200 Balance -1312.9 676.5 -7647.1 -700 Meds/Results Medications: Active Medications Generic Name Dose Route Start Last Admin Trade Name Freq PRN Reason Stop Dose Admin Albuterol/Ipratropium 3 ml 04/15/25 07:30 04/19/25 02:27 Ipratropium 0.5 Mg/Albuterol Sulfate 2.5 Mg Ampul.Neb 3 Ml INHALATION 3 ml Q6HRT FARHANA Administration Dextrose 12.5 gm 04/17/25 09:09 Dextrose 50% 25 Gm/50 Ml Syringe IV PUSH PRN PRN Hypoglycemia Protocol Glucagon 1 mg 04/17/25 09:09 Glucagon For Inj 1 Mg Vial IM PRN PRN Hypoglycemia Protocol Glucose 15 gm 04/17/25 09:09 Glucose Oral Gel 15 Gm Of Glucse In 37.5 Gm Tube PO PRN PRN Hypoglycemia Protocol Hydralazine HCl 10 mg 04/18/25 11:43 Hydralazine Hcl 20 Mg/Ml Vial IV PUSH Q4H PRN Blood Pressure - High Doxycycline Hyclate 100 mg/ 100 mls @ 100 mls/hr 04/15/25 10:15 04/18/25 21:30 Sodium Chloride IVPB 04/19/25 21:59 Infused Q12HR FARHANA Infusion Dextrose 1,000 mls @ 100 mls/hr 04/17/25 09:09 Dextrose 5% 1,000 Ml IVPB PRN PRN Hypoglycemia Protocol Ceftriaxone Sodium 2 gm/ 100 mls @ 200 mls/hr 04/17/25 11:00 04/18/25 11:55 Sodium Chloride IVPB 04/19/25 11:29 Infused Q24H FARHANA Infusion Vancomycin HCl 1,500 mg in 500 mls @ 250 mls/hr 04/19/25 03:00 04/19/25 05:00 Vancomycin 1,500 Mg/Ns 500 Ml IVPB Infused Q18H FARHANA Infusion Insulin Aspart 3 - 6 units 04/17/25 12:00 04/19/25 05:24 Insulin Aspart (*Bkc) 100 Units/Ml SUB-Q Not Given Q6HR FARHANA Protocol Pantoprazole Sodium 40 mg 04/15/25 08:00 04/18/25 08:52 Pantoprazole Sodium Iv 40 Mg Vial IV PUSH 40 mg QAM FARHANA Administration Sodium Chloride 10 ml 04/15/25 06:00 04/19/25 06:05 Central Line Flush IV PUSH 10 ml Q8HR FARHANA Administration Sodium Chloride 20 ml 04/15/25 02:07 Central Line Flush IV PUSH PRN PRN after blood draws Radiology Results: ITS Impressions Abdomen X-Ray 04/14/25 20:46 IMPRESSION: 1. Endotracheal tube and orogastric tube in expected positions. 2. Decreased left lung volume with elevation the left hemidiaphragm and patchy airspace opacities throughout the left lung which could represent atelectasis and/or pneumonia. 3. Pulmonary vascular congestion with increased interstitial pattern in the right perihilar region which could represent mild pulmonary edema and/or pneumonia. Head CT 04/15/25 08:50 IMPRESSION: 1. No acute intracranial abnormality. Labs Labs: Laboratory Results - last 24 hr 04/18/25 04/18/25 04/18/25 11:49 12:00 17:49 WBC RBC Hgb Hct MCV MCH MCHC RDW Plt Count MPV Immature Gran % (Auto) Neut % (Auto) Lymph % (Auto) [place] % (Auto) Eos % (Auto) Baso % (Auto) Lymph # (Auto) [place] # (Auto) Eos # (Auto) Baso # (Auto) Abs Immat Gran (auto) Absolute Neuts (auto) Absolute Nucleated RBC Nucleated RBC % Puncture Site Left radial ABG pH 7.396 ABG pCO2 35.7 ABG pO2 61.6 L ABG PO2/FiO2 Ratio 2.05 ABG HCO3 21.4 L ABG O2 Saturation 91.8 L ABG O2 Content 13.4 L ABG Base Excess -3.0 A-a Gradient 110.4 Oxyhemoglobin 90.5 Total Hemoglobin 10.5 L O2 Delivery Device Ventilator O2 Liters/Min 0.0 Minute Volume Not Reportable Vent Rate Not Reportable Vent Mode Spontaneous FiO2 30 Tidal Volume Not Reportable PEEP 5 Peak Inspir Pressure Not Reportable Pressure Support 8 Sodium Potassium Chloride Carbon Dioxide Anion Gap BUN Creatinine Estim Creat Clear Calc Estimated GFR Glucose POC Capillary Glucose 199 H 198 H Calcium Phosphorus Magnesium Total Bilirubin AST ALT Alkaline Phosphatase Total Protein Albumin 04/18/25 04/19/25 23:59 03:41 WBC 8.1 RBC 3.27 L Hgb 9.5 L Hct 30.8 L MCV 94.2 MCH 29.1 MCHC 30.8 L RDW 15.3 H Plt Count 116 L MPV 10.5 H Immature Gran % (Auto) 0.4 Neut % (Auto) 75.6 H Lymph % (Auto) 12.3 L [place] % (Auto) 9.2 H Eos % (Auto) 2.0 Baso % (Auto) 0.5 Lymph # (Auto) 0.99 [place] # (Auto) 0.7 H Eos # (Auto) 0.2 Baso # (Auto) 0.0 Abs Immat Gran (auto) 0.03 Absolute Neuts (auto) 6.1 Absolute Nucleated RBC 0.000 Nucleated RBC % 0.0 Puncture Site ABG pH ABG pCO2 ABG pO2 ABG PO2/FiO2 Ratio ABG HCO3 ABG O2 Saturation ABG O2 Content ABG Base Excess A-a Gradient Oxyhemoglobin Total Hemoglobin O2 Delivery Device O2 Liters/Min Minute Volume Vent Rate Vent Mode FiO2 Tidal Volume PEEP Peak Inspir Pressure Pressure Support Sodium 143 Potassium 4.0 Chloride 112 H Carbon Dioxide 25 Anion Gap 6 BUN 36 H Creatinine 1.05 H Estim Creat Clear Calc 69 Estimated GFR 52 L Glucose 174 H POC Capillary Glucose 174 H Calcium 9.3 Phosphorus 3.7 Magnesium 2.2 Total Bilirubin 0.4 AST 29 ALT 22 Alkaline Phosphatase 132 H Total Protein 6.1 L Albumin 3.2 L Quality VTE Prophylaxis VTE prophylaxis: mechanical ordered and pharmacologic ordered (xarelto)
[2025-04-19] MEDS: DOXYCYCLINE IV 100 MG in SODIUM CHLORIDE 0.9% IV 100 ML IVPB ×2 (08:11→20:38)
[2025-04-19] MEDS: PANTOPRAZOLE SODIUM IV 40 MG VIAL IV PUSH (08:12)
[2025-04-19] MEDS: cefTRIAXone 2 GM in SODIUM CHLORIDE 0.9% IV 100 ML 200 ML IVPB (12:02)
--- NOTE | 2025-04-19 12:02 | WPDINTPN ---
Progress Note: A&P Assessment and Plan (1) Intentional overdose of calcium-channel ryne: Code(s): T46.1X2A - Poisoning by calcium-channel blockers, intentional self-harm, initial encounter Status: Acute Assessment and Plan: Patient with calcium channel ryne/amlodipine overdose causing severe hypotension, bradycardia. oison Control was notified and following and recommended insulin infusion -received multiple doses of calcium chloride and calcium gluconate -calcium level is 9.1 this morning -OFF epinephrine infusion and insulin infusion, discontinue D5 half-normal saline -blood pressure is slightly higher, will add hydralazine p.r.n. -heart rates in this upper 60s and 70s, so that has improved -continue to monitor closely (2) Intentional drug overdose: Code(s): T50.902A - Poisoning by unspecified drugs, medicaments and biological substances, intentional self-harm, initial encounter Status: Acute Assessment and Plan: Patient overdosed on multiple other medications, most concerning are Tylenol, losartan, baclofen, aripiprazole, duloxetine, gabapentin, clopidogrel, rivaroxaban -INR is 1.3 -status post IV fluids, -continue monitor urine output (3) Suicide attempt: Code(s): T14.91XA - Suicide attempt, initial encounter Status: Acute Assessment and Plan: Likely suicidal attempt/ideation - According the family she did tell them just over life, cannot do it anymore -patient is medically stable, care coordination and crisis management may evaluate the patient (4) Shock circulatory: Code(s): R57.9 - Shock, unspecified Status: Acute Assessment and Plan: RESOLVED Circulatory shock likely related to losartan, amlodipine and multiple other medications -lactic acid has normalized -off epinephrine and insulin infusion -04/14/2025 urine cultures growing E coli, only resistant to ampicillin -04/14/2025: Blood cultures negative so far -04/15/2025: Sputum cultures growing MRSA susceptible to vancomycin and E coli only resistant to ampicillin Continue ceftriaxone, doxycycline and vancomycin (04/15) (5) Respiratory failure: Code(s): J96.90 - Respiratory failure, unspecified, unspecified whether with hypoxia or hypercapnia Status: Acute Assessment and Plan: Acute respiratory failure likely related to altered mental status, aspiration pneumonia due to emesis upon arrival to the ER -04/14: Intubated -04/18: Extubated Continue bronchodilators -patient has sleep apnea at home, has a CPAP patient does not use it, will have family bring CPAP machine at home and will start patient on CPAP at night and while asleep during the day (6) Aspiration pneumonia: Code(s): J69.0 - Pneumonitis due to inhalation of food and vomit Status: Acute Assessment and Plan: Patient had emesis with altered mental status, chest x-ray showed possible atelectasis versus pneumonia likely aspiration -continue antibiotics as above (7) Diabetes mellitus: Code(s): E11.9 - Type 2 diabetes mellitus without complications Status: Acute Assessment and Plan: Accu-Cheks and sliding scale insulin (8) Electrolyte imbalance: Code(s): E87.8 - Other disorders of electrolyte and fluid balance, not elsewhere classified Status: Acute Assessment and Plan: Electrolytes are within normal limits Continue to monitor Plan DVT prophylaxis: SCDs to right lower extremity, patient overdosed on rivaroxaban, aspirin, clopidogrel, bruising noted around central line, will hold off chemoprophylaxis at this time due to increase risk of bleeding and low platelet Stress ulcer prophylaxis: Protonix Nutrition: Ice chips, appreciate speech therapy bedside evaluation, is recommended modified barium swallow but okay for ice chips at this time Code Status: Full code Critical Care Time Spent: 31 minutes Patient may transfer to medical status but remain in ICU due to suicidal precautions Updated patient's mother during rounds, answered all the questions Due to a high probability of clinically significant, life threatening deterioration, the patient required my highest level of preparedness to intervene emergently and I personally spent this critical care time directly and personally managing the patient. This critical care time included obtaining a history; examining the patient; pulse oximetry; ordering and review of studies; arranging urgent treatment with development of a management plan; evaluation of patient's response to treatment; frequent reassessment; and discussions with other providers. It was exclusive of separately billable procedures and treating other patients and teaching time. Please see Assessment and Plan section and the rest of the note for further information on patient assessment and treatment This dictation may have been done utilizing a voice recognition system. Attempts have been made to correct errors. However, there may be uncorrected grammatical, spelling, and recognitions errors present. Subjective Date/time seen: 04/19/25 12:02 Interval history: Reason for consult: Intentional poly medication overdose, acute respiratory failure, altered mental status, aspiration pneumonia, acute kidney injury, lactic acidosis, suicidal ideation 04/14: Intubated in the ER 04/15: Arterial line placed 04/18: Extubated 04/19/2025: Patient seen and examined the ICU, was on 3 L at night, likely due to sleep apnea and slight hypoxia. This morning she is awake, alert on 2 L nasal cannula with adequate O2 sats. Able to answer questions and follows simple commands. States she was to have some ice chips. Denies any chest pain, difficulty breathing, abdominal pain, nausea, vomiting Review of Systems Review of Systems: All systems reviewed & are unremarkable except as noted in HPI and below Exam Narrative: General: Pleasant female in no acute distress HEENT:? Pupils equal and reactive, sclera is clear, Neck:? Supple Respiratory:? Coarse breath sounds but better air entry,, no wheezing, Cardiac:? S1-S2 is normal, regular rate and rhythm in the 60s and 70s Abdomen:? 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 Patient is awake, alert, able to answer questions appropriately and follows commands Skin:? Multiple healing wounds on the bilateral lower extremity Psych:? Unable to assess at this time Objective Data Vital Signs Vital Signs: Vital Signs - 24 hr 04/18/25 12:08 04/18/25 13:36 04/18/25 13:45 Temperature Pulse Rate 79 77 Respiratory Rate 20 19 Blood Pressure Pulse Oximetry 93 Oxygen Delivery Nasal Cannula Oxygen Flow Rate 3 04/18/25 14:00 04/18/25 14:00 04/18/25 16:00 Temperature 98.9 F 99.0 F Pulse Rate 79 79 76 Respiratory Rate 18 15 Blood Pressure 163/69 H 161/51 H Pulse Oximetry 95 96 Oxygen Delivery Oxygen Flow Rate 04/18/25 16:00 04/18/25 16:00 04/18/25 18:00 Temperature Pulse Rate 80 77 Respiratory Rate Blood Pressure Pulse Oximetry 96 Oxygen Delivery Nasal Cannula Oxygen Flow Rate 5 04/18/25 18:00 04/18/25 20:00 04/18/25 20:00 Temperature 99.3 F 99.4 F Pulse Rate 77 72 Respiratory Rate 18 16 Blood Pressure 154/51 H 151/50 H Pulse Oximetry 97 98 98 Oxygen Delivery Nasal Cannula Oxygen Flow Rate 5 04/18/25 20:00 04/18/25 20:12 04/18/25 20:15 Temperature Pulse Rate 73 73 Respiratory Rate 18 Blood Pressure Pulse Oximetry 96 Oxygen Delivery Nasal Cannula Oxygen Flow Rate 5 04/18/25 20:19 04/18/25 22:00 04/18/25 22:00 Temperature 99.7 F H Pulse Rate 71 80 80 Respiratory Rate 18 20 Blood Pressure 160/50 H Pulse Oximetry 95 Oxygen Delivery Oxygen Flow Rate 04/19/25 00:00 04/19/25 00:00 04/19/25 00:00 Temperature 99.7 F H Pulse Rate 69 72 Respiratory Rate 16 Blood Pressure 151/46 H Pulse Oximetry 94 94 Oxygen Delivery Nasal Cannula Oxygen Flow Rate 3 04/19/25 02:00 04/19/25 02:00 04/19/25 02:00 Temperature 99.3 F Pulse Rate 68 68 Respiratory Rate 20 20 Blood Pressure 157/54 H Pulse Oximetry 94 88 L Oxygen Delivery Nasal Cannula Oxygen Flow Rate 6 04/19/25 02:27 04/19/25 02:33 04/19/25 04:00 Temperature 98.7 F Pulse Rate 67 68 66 Respiratory Rate 22 H 19 21 H Blood Pressure 143/46 H Pulse Oximetry 95 Oxygen Delivery Oxygen Flow Rate 04/19/25 04:00 04/19/25 04:00 04/19/25 06:00 Temperature Pulse Rate 66 63 Respiratory Rate Blood Pressure Pulse Oximetry 94 Oxygen Delivery Nasal Cannula Oxygen Flow Rate 3 04/19/25 06:00 04/19/25 06:00 04/19/25 07:47 Temperature 98.5 F Pulse Rate 632 H Respiratory Rate 22 H Blood Pressure 145/54 H Pulse Oximetry 99 99 98 Oxygen Delivery Nasal Cannula Nasal Cannula Oxygen Flow Rate 3 3 04/19/25 07:47 04/19/25 07:55 04/19/25 08:00 Temperature 98.7 F Pulse Rate 65 65 66 Respiratory Rate 19 18 17 Blood Pressure 151/50 H Pulse Oximetry 96 Oxygen Delivery Oxygen Flow Rate 04/19/25 08:00 04/19/25 08:00 04/19/25 08:17 Temperature Pulse Rate 62 Respiratory Rate Blood Pressure Pulse Oximetry 97 95 Oxygen Delivery Nasal Cannula Nasal Cannula Oxygen Flow Rate 3 2 04/19/25 10:00 04/19/25 10:00 04/19/25 10:15 Temperature 98.9 F Pulse Rate 69 70 Respiratory Rate 20 Blood Pressure 157/54 H Pulse Oximetry 96 Oxygen Delivery Nasal Cannula Oxygen Flow Rate 2 Intake/Output Intake/Output: Intake & Output 04/16/25 04/17/25 04/18/25 04/19/25 23:59 23:59 23:59 23:59 Intake Total 1737.1 3026.5 942.9 600 Output Total 3050 2350 3900 1200 Balance -1312.9 676.5 -2957.1 -600 Meds/Results Medications: Active Medications Generic Name Dose Route Start Last Admin Trade Name Freq PRN Reason Stop Dose Admin Albuterol/Ipratropium 3 ml 04/15/25 07:30 04/19/25 07:46 Ipratropium 0.5 Mg/Albuterol Sulfate 2.5 Mg Ampul.Neb 3 Ml INHALATION 3 ml Q6HRT FARHANA Administration Dextrose 12.5 gm 04/17/25 09:09 Dextrose 50% 25 Gm/50 Ml Syringe IV PUSH PRN PRN Hypoglycemia Protocol Glucagon 1 mg 04/17/25 09:09 Glucagon For Inj 1 Mg Vial IM PRN PRN Hypoglycemia Protocol Glucose 15 gm 04/17/25 09:09 Glucose Oral Gel 15 Gm Of Glucse In 37.5 Gm Tube PO PRN PRN Hypoglycemia Protocol Hydralazine HCl 10 mg 04/18/25 11:43 Hydralazine Hcl 20 Mg/Ml Vial IV PUSH Q4H PRN Blood Pressure - High Doxycycline Hyclate 100 mg/ 100 mls @ 100 mls/hr 04/15/25 10:15 04/19/25 09:15 Sodium Chloride IVPB 04/19/25 21:59 Infused Q12HR FARHANA Infusion Dextrose 1,000 mls @ 100 mls/hr 04/17/25 09:09 Dextrose 5% 1,000 Ml IVPB PRN PRN Hypoglycemia Protocol Vancomycin HCl 1,500 mg in 500 mls @ 250 mls/hr 04/19/25 03:00 04/19/25 05:00 Vancomycin 1,500 Mg/Ns 500 Ml IVPB Infused Q18H FARHANA Infusion Insulin Aspart 3 - 6 units 04/17/25 12:00 04/19/25 11:18 Insulin Aspart (*Bkc) 100 Units/Ml SUB-Q Not Given Q6HR FARHANA Protocol Pantoprazole Sodium 40 mg 04/15/25 08:00 04/19/25 08:12 Pantoprazole Sodium Iv 40 Mg Vial IV PUSH 40 mg QAM FARHANA Administration Sodium Chloride 10 ml 04/15/25 06:00 04/19/25 06:05 Central Line Flush IV PUSH 10 ml Q8HR FARHANA Administration Sodium Chloride 20 ml 04/15/25 02:07 Central Line Flush IV PUSH PRN PRN after blood draws Radiology Results: ITS Impressions Abdomen X-Ray 04/14/25 20:46 IMPRESSION: 1. Endotracheal tube and orogastric tube in expected positions. 2. Decreased left lung volume with elevation the left hemidiaphragm and patchy airspace opacities throughout the left lung which could represent atelectasis and/or pneumonia. 3. Pulmonary vascular congestion with increased interstitial pattern in the right perihilar region which could represent mild pulmonary edema and/or pneumonia. Head CT 04/15/25 08:50 IMPRESSION: 1. No acute intracranial abnormality. Labs Labs: Laboratory Results - last 24 hr 04/18/25 04/18/25 04/18/25 12:00 17:49 23:59 WBC RBC Hgb Hct MCV MCH MCHC RDW Plt Count MPV Immature Gran % (Auto) Neut % (Auto) Lymph % (Auto) [place] % (Auto) Eos % (Auto) Baso % (Auto) Lymph # (Auto) [place] # (Auto) Eos # (Auto) Baso # (Auto) Abs Immat Gran (auto) Absolute Neuts (auto) Absolute Nucleated RBC Nucleated RBC % Sodium Potassium Chloride Carbon Dioxide Anion Gap BUN Creatinine Estim Creat Clear Calc Estimated GFR Glucose POC Capillary Glucose 199 H 198 H 174 H Calcium Phosphorus Magnesium Total Bilirubin AST ALT Alkaline Phosphatase Total Protein Albumin 04/19/25 04/19/25 03:41 11:14 WBC 8.1 RBC 3.27 L Hgb 9.5 L Hct 30.8 L MCV 94.2 MCH 29.1 MCHC 30.8 L RDW 15.3 H Plt Count 116 L MPV 10.5 H Immature Gran % (Auto) 0.4 Neut % (Auto) 75.6 H Lymph % (Auto) 12.3 L [place] % (Auto) 9.2 H Eos % (Auto) 2.0 Baso % (Auto) 0.5 Lymph # (Auto) 0.99 [place] # (Auto) 0.7 H Eos # (Auto) 0.2 Baso # (Auto) 0.0 Abs Immat Gran (auto) 0.03 Absolute Neuts (auto) 6.1 Absolute Nucleated RBC 0.000 Nucleated RBC % 0.0 Sodium 143 Potassium 4.0 Chloride 112 H Carbon Dioxide 25 Anion Gap 6 BUN 36 H Creatinine 1.05 H Estim Creat Clear Calc 69 Estimated GFR 52 L Glucose 174 H POC Capillary Glucose 156 H Calcium 9.3 Phosphorus 3.7 Magnesium 2.2 Total Bilirubin 0.4 AST 29 ALT 22 Alkaline Phosphatase 132 H Total Protein 6.1 L Albumin 3.2 L Quality VTE Prophylaxis VTE prophylaxis: mechanical ordered
--- NOTE | 2025-04-19 12:18 | PCFNICU ---
ICU Rounding Note: Pt current nutrition is NPO. Nutrition recommendation: advance diet per speech recommendations Last recorded weight is 140 kg. Bowel Motility: No BM recorded at this time Labs Reviewed: Hgb:9.8, HCT:30.8, alb:3.2, BUN:36, Cr:1.05, Glu:174 Meds Noted: insulin, protonix Skin: WNL Additional Notes: Pt extubated, working with speech for swallow. Pt to continue NPO today. Recommend to advance diet as tolerated and per speech recommendations. Following daily in ICU rounds. Will monitor weight, labs, skin, diet orders, meds, Follow up in 3 days.
[2025-04-19] MEDS: FUROSEMIDE INJ 40 MG/4 ML VIAL IV PUSH (16:55)
[2025-04-19] MEDS: LIDOCAINE 5% PATCH 1 PATCH TRANSDERM (21:54)
[2025-04-19] MEDS: METOPROLOL TARTRATE INJ 5 MG/5 ML VIAL IV PUSH (21:54)
--- NOTE | 2025-04-19 22:49 | PC.NURSE ---
2047 Discussed elevated blood pressures, c/o of pain in shoulders, and inability to take PO medications due to aspiration risk with Dr Grayson. Lopressor 5mg IVP q6 while NPO ordered. Hold if sys BP <100 or HR<50. Lidocaine patch also ordered for shoulders. Patient can also have heating pad or ice pack.
[2025-04-20] VITALS (22 sets, daily range): BP systolic 150–193; BP diastolic 48–75; PULSE 71–88; RESP 15–30; TEMP 36.6–36.8; O2SAT 86–96
[2025-04-20] MEDS: IPRATROPIUM 0.5 MG/ALBUTEROL SULFATE 2.5 MG AMPUL.NEB 3 ML INHALATION ×4 (01:07→20:47)
[2025-04-20] MEDS: METOPROLOL TARTRATE INJ 5 MG/5 ML VIAL IV PUSH ×3 (03:05→15:18)
[2025-04-20 06:09] LABS: Hematocrit 31.1 % (37.0-47.0); Hemoglobin 9.7 g/dL (12.0-15.0); Immature Granulocyte Percent A 0.5 % (0-0.5); Lymphocytes Absolute Auto 0.81 K/mm3 (0.9-3.2); Mean Corpuscular HGB Conc 31.2 g/dl (32-36); Mean Corpuscular Hemoglobin 29.4 pg (26-34); Mean Corpuscular Volume 94.2 fl (80-100); Nucleated Red Blood Cells Absolute Auto 0.000 K/mm3 (0.0-0.012); Nucleated Red Blood Cells Perc 0.0 % (0.0-0.2); Platelet Count Result 123 k/mm3 (150-375); Red Blood Count 3.30 M/mm3 (4.2-5.4); White Blood Count 9.1 K/mm3 (4.5-10.0)
[2025-04-20] MEDS: CENTRAL LINE FLUSH 10 ML IV PUSH ×2 (06:24→13:57)
[2025-04-20] MEDS: CENTRAL LINE FLUSH 20 ML IV PUSH (06:24)
[2025-04-20 06:28] LABS: Alanine Aminotransferase 26 U/L (6-35); Albumin Level 3.4 g/dL (3.5-5.1); Alkaline Phosphatase 142 U/L (38-126); Anion Gap 9 mmol/L (4-12); Aspartate Amino Transferase 30 U/L (14-36); Bilirubin,Total 0.5 mg/dL (0.2-1.3); Blood Urea Nitrogen 39 mg/dL (7-17); Calcium 9.8 mg/dL (8.4-10.2); Carbon Dioxide 23 mmol/L (22-30); Chloride 115 mmol/L (98-107); Estimated CRCL calculation 67 ml/min; Estimated Glomerular Filt Rate 52; Glucose 170 mg/dL (65-110); Magnesium 2.2 mg/dL (1.6-2.3); Potassium 3.6 mmol/L (3.4-5.0); Sodium 147 mmol/L (137-145); Total Protein 6.4 g/dL (6.3-8.2)
--- NOTE | 2025-04-20 08:46 | P.PNIM_ITS ---
Progress Note: A&P Assessment and Plan (1) Intentional overdose of calcium-channel ryne: Code(s): T46.1X2A - Poisoning by calcium-channel blockers, intentional self-harm, initial encounter Status: Acute Assessment and Plan: Patient with calcium channel ryne/amlodipine overdose causing severe hypotension, bradycardia. Poison Control was notified and following and recommended insulin infusion. Status post multiple doses of calcium chloride, calcium gluconate, epinephrine infusion, insulin infusion BP 172/55, heart rate be tuned 90-93 Hold hydralazine if heart rate is greater than 90, will add labetalol Hold labetalol if blood pressure is less than 90/60, heart rate less than 60 Continue to monitor vital signs (2) Intentional drug overdose: Code(s): T50.902A - Poisoning by unspecified drugs, medicaments and biological substances, intentional self-harm, initial encounter Status: Acute Assessment and Plan: Patient overdosed on multiple other medications, most concerning are Tylenol, losartan, baclofen, aripiprazole, duloxetine, gabapentin, clopidogrel, rivaroxaban Psychiatric evaluation before discharge-consult is ordered. -INR is 1.3 -status post IV fluids, -continue monitor urine output (3) Suicide attempt: Code(s): T14.91XA - Suicide attempt, initial encounter Status: Acute Assessment and Plan: Likely suicidal attempt/ideation - According the family she did tell them just over life, cannot do it anymore -once patient is medically stable will have care coordination and crisis management evaluate the patient for inpatient psych (4) Shock circulatory: Code(s): R57.9 - Shock, unspecified Status: Acute Assessment and Plan: Circulatory shock likely related to losartan, amlodipine and multiple other medications Resolved, lactic acid normalized, blood culture no growth to date 04/14/2025, The sputum grows E coli and MRSA, urine culture grows E coli- susceptible for ceftriaxone Complete ceftriaxone 5 days Continue doxycycline and vancomycin for now Upon discharge we can switch to linezolid (5) Respiratory failure: Code(s): J96.90 - Respiratory failure, unspecified, unspecified whether with hypoxia or hypercapnia Status: Acute Assessment and Plan: Acute respiratory failure likely related to altered mental status, aspiration pneumonia due to emesis upon arrival to the ER off of mechanical ventilation and intubation Continue bronchodilator, chest physiotherapy, and incentive spirometry CPAP/BiPAP at HS p.r.n. Resolved, on room air. (6) Aspiration pneumonia: Code(s): J69.0 - Pneumonitis due to inhalation of food and vomit Status: Acute Assessment and Plan: Patient had emesis with altered mental status, chest x-ray showed possible atelectasis versus pneumonia likely aspiration -continue ceftriaxone, vancomycin and doxycycline (04/15) (7) Diabetes mellitus: Code(s): E11.9 - Type 2 diabetes mellitus without complications Status: Acute Assessment and Plan: At home she takes NovoLog 2 units t.i.d. , Soliqua () 45 units b.i.d. POCT, sliding scale, hypoglycemia protocol (8) Electrolyte imbalance: Code(s): E87.8 - Other disorders of electrolyte and fluid balance, not elsewhere classified Status: Acute Assessment and Plan: Potassium improved after Lokelma x1 and bicarb (04/16) Continue to monitor (9) Peripheral arterial disease with history of revascularization: Code(s): I73.9 - Peripheral vascular disease, unspecified; Z98.890 - Other specified postprocedural states Status: Acute Assessment and Plan: History of revascularization and stent placement Continue home does Xarelto 2.5 mg b.i.d. and Plavix 75 mg p.o. daily, aspirin 81 mg daily, atorvastatin 80 mg HS Time Spent With Patient Time: 35 minutes Subjective Date/time seen: 04/20/25 08:46 Interval history: She wore CPAP overnight. She failed bedside swallow study yesterday. Acute hypoxia resolved. she is on room air now. No fever or chills or chest pain overnight. She complains feeling hungry. Exam Narrative: General: Morbidly obese HEENT:? Pupils equal and reactive, sclera is clear Neck:? Supple Respiratory:? Clear to auscultation bilaterally, no wheezing/rhonchi/crackles Cardiac:? Regular rate rhythm, S1 and S2 appreciated. No murmur/gallop/regurgitation Abdomen:? 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 Alert and oriented to person, place, and situation. She has smack her lip. Right hand tremor. Skin:? Multiple healing wounds on the bilateral lower extremity Psych:? Mood appropriate Objective Data Vital Signs Vital Signs: Vital Signs - 24 hr 04/19/25 10:00 04/19/25 10:00 04/19/25 10:15 Temperature 37.2 C Pulse Rate 69 70 Respiratory Rate 20 Blood Pressure 157/54 H Pulse Oximetry 96 Oxygen Delivery Nasal Cannula Oxygen Flow Rate 2 04/19/25 13:36 04/19/25 13:45 04/19/25 16:00 Temperature 36.6 C Pulse Rate 74 76 76 Respiratory Rate 18 18 24 H Blood Pressure 184/59 H Pulse Oximetry 97 Oxygen Delivery Oxygen Flow Rate 04/19/25 17:48 04/19/25 18:38 04/19/25 19:43 Temperature Pulse Rate 83 Respiratory Rate 17 Blood Pressure 183/63 H 164/58 H Pulse Oximetry Oxygen Delivery Oxygen Flow Rate 04/19/25 19:43 04/19/25 19:48 04/19/25 20:00 Temperature Pulse Rate 85 80 Respiratory Rate 17 24 H Blood Pressure Pulse Oximetry 93 97 Oxygen Delivery Nasal Cannula Nasal Cannula Oxygen Flow Rate 2 2 04/19/25 21:54 04/20/25 00:00 04/20/25 01:10 Temperature Pulse Rate 80 80 Respiratory Rate 17 Blood Pressure 153/64 H Pulse Oximetry 96 Oxygen Delivery Oxygen Flow Rate 04/20/25 01:21 04/20/25 01:25 04/20/25 03:05 Temperature Pulse Rate 85 83 72 Respiratory Rate 17 17 Blood Pressure Pulse Oximetry 95 Oxygen Delivery Autopap Oxygen Flow Rate 04/20/25 03:07 04/20/25 08:08 04/20/25 08:10 Temperature Pulse Rate 72 80 Respiratory Rate 20 17 Blood Pressure 150/48 H Pulse Oximetry 94 93 Oxygen Delivery Nasal Cannula Oxygen Flow Rate 2 Intake/Output Intake/Output: Intake & Output 04/17/25 04/18/25 04/19/25 04/20/25 23:59 23:59 23:59 23:59 Intake Total 3026.5 942.9 940 30 Output Total 2350 3900 3900 1375 Balance 676.5 -2957.1 -2960 -1345 Meds/Results Medications: Active Medications Generic Name Dose Route Start Last Admin Trade Name Freq PRN Reason Stop Dose Admin Albuterol/Ipratropium 3 ml 04/15/25 07:30 04/20/25 01:07 Ipratropium 0.5 Mg/Albuterol Sulfate 2.5 Mg Ampul.Neb 3 Ml INHALATION 3 ml Q6HRT FARHANA Administration Aripiprazole 5 mg 04/19/25 14:30 04/19/25 14:52 Aripiprazole 5 Mg Tablet PO Not Given DAILY FARHANA Aspirin 81 mg 04/19/25 14:30 04/19/25 14:52 Aspirin 81 Mg Enteric Tablet PO Not Given DAILY FARHANA Atorvastatin Calcium 80 mg 04/19/25 14:30 04/19/25 14:52 Atorvastatin 40 Mg Tablet PO Not Given DAILY FARHANA Clopidogrel Bisulfate 75 mg 04/19/25 14:30 04/19/25 14:52 Clopidogrel Bisulfate 75 Mg Tablet PO Not Given DAILY [facility] Dextrose 12.5 gm 04/17/25 09:09 Dextrose 50% 25 Gm/50 Ml Syringe IV PUSH PRN PRN Hypoglycemia Protocol Duloxetine HCl 60 mg 04/19/25 14:30 04/19/25 14:52 Duloxetine Hcl 60 Mg Capsule.Dr PO Not Given QAM [facility] Ezetimibe 10 mg 04/19/25 14:30 04/19/25 14:52 Ezetimibe 10 Mg Tablet PO Not Given DAILY [facility] Empagliflozin 25 mg 04/19/25 14:35 04/19/25 14:52 Empagliflozin 25 Mg Tablet PO 05/20/25 14:34 Not Given DAILY [facility] Glucagon 1 mg 04/17/25 09:09 Glucagon For Inj 1 Mg Vial IM PRN PRN Hypoglycemia Protocol Glucose 15 gm 04/17/25 09:09 Glucose Oral Gel 15 Gm Of Glucse In 37.5 Gm Tube PO PRN PRN Hypoglycemia Protocol Hydralazine HCl 10 mg 04/18/25 11:43 04/20/25 08:33 Hydralazine Hcl 20 Mg/Ml Vial IV PUSH 10 mg Q4H PRN Administration Blood Pressure - High Hydralazine HCl 50 mg 04/19/25 14:00 04/19/25 19:54 Hydralazine Hcl 50 Mg Tablet PO Not Given 0900,1400,2100 FARHANA Dextrose 1,000 mls @ 100 mls/hr 04/17/25 09:09 Dextrose 5% 1,000 Ml IVPB PRN PRN Hypoglycemia Protocol Vancomycin HCl 1,500 mg in 500 mls @ 250 mls/hr 04/19/25 03:00 04/19/25 21:55 Vancomycin 1,500 Mg/Ns 500 Ml IVPB 250 mls/hr Q18H FARHANA Administration Insulin Aspart 3 - 6 units 04/17/25 12:00 04/20/25 07:01 Insulin Aspart (*Bkc) 100 Units/Ml SUB-Q Not Given Q6HR [facility] Protocol Metoprolol Tartrate 5 mg 04/19/25 21:00 04/20/25 03:05 Metoprolol Tartrate Inj 5 Mg/5 Ml Vial IV PUSH 5 mg Q6H FARHANA Administration Pantoprazole Sodium 40 mg 04/15/25 08:00 04/19/25 08:12 Pantoprazole Sodium Iv 40 Mg Vial IV PUSH 40 mg QAM FARHANA Administration Rivaroxaban 2.5 mg 04/19/25 21:00 04/19/25 19:55 Rivaroxaban 2.5 Mg Tablet PO Not Given Q12H [facility] Sodium Chloride 10 ml 04/15/25 06:00 04/20/25 06:24 Central Line Flush IV PUSH 10 ml Q8HR FARHANA Administration Sodium Chloride 20 ml 04/15/25 02:07 04/20/25 06:24 Central Line Flush IV PUSH 20 ml PRN PRN Administration after blood draws Radiology Results: ITS Impressions Abdomen X-Ray 04/14/25 20:46 IMPRESSION: 1. Endotracheal tube and orogastric tube in expected positions. 2. Decreased left lung volume with elevation the left hemidiaphragm and patchy airspace opacities throughout the left lung which could represent atelectasis and/or pneumonia. 3. Pulmonary vascular congestion with increased interstitial pattern in the right perihilar region which could represent mild pulmonary edema and/or pneumonia. Head CT 04/15/25 08:50 IMPRESSION: 1. No acute intracranial abnormality. Labs Labs: Laboratory Results - last 24 hr 04/19/25 04/19/25 04/19/25 11:14 17:40 20:14 WBC RBC Hgb Hct MCV MCH MCHC RDW Plt Count MPV Immature Gran % (Auto) Neut % (Auto) Lymph % (Auto) Good[place] % (Auto) Eos % (Auto) Baso % (Auto) Lymph # (Auto) Gooding # (Auto) Eos # (Auto) Baso # (Auto) Abs Immat Gran (auto) Absolute Neuts (auto) Absolute Nucleated RBC Nucleated RBC % Sodium Potassium Chloride Carbon Dioxide Anion Gap BUN Creatinine Estim Creat Clear Calc Estimated GFR Glucose POC Capillary Glucose 156 H 172 H Calcium Phosphorus Magnesium Total Bilirubin AST ALT Alkaline Phosphatase Total Protein Albumin Vancomycin Trough 16.7 04/20/25 04/20/25 00:42 06:00 WBC 9.1 RBC 3.30 L Hgb 9.7 L Hct 31.1 L MCV 94.2 MCH 29.4 MCHC 31.2 L RDW 15.4 H Plt Count 123 L MPV 9.9 Immature Gran % (Auto) 0.5 Neut % (Auto) 82.1 H Lymph % (Auto) 8.9 L Gooding % (Auto) 7.4 Eos % (Auto) 0.7 Baso % (Auto) 0.4 Lymph # (Auto) 0.81 L Gooding # (Auto) 0.7 H Eos # (Auto) 0.1 Baso # (Auto) 0.0 Abs Immat Gran (auto) 0.05 H Absolute Neuts (auto) 7.5 H Absolute Nucleated RBC 0.000 Nucleated RBC % 0.0 Sodium 147 H Potassium 3.6 Chloride 115 H Carbon Dioxide 23 Anion Gap 9 BUN 39 H Creatinine 1.06 H Estim Creat Clear Calc 67 Estimated GFR 52 L Glucose 170 H POC Capillary Glucose 156 H Calcium 9.8 Phosphorus 3.7 Magnesium 2.2 Total Bilirubin 0.5 AST 30 ALT 26 Alkaline Phosphatase 142 H Total Protein 6.4 Albumin 3.4 L Vancomycin Trough Quality VTE Prophylaxis VTE prophylaxis: mechanical ordered and pharmacologic ordered (xarelto)
[2025-04-20] MEDS: PANTOPRAZOLE SODIUM IV 40 MG VIAL IV PUSH (09:39)
--- NOTE | 2025-04-20 12:37 | PCSTNOTE ---
Please refer to the Bedside Swallow Evaluation in the EMR. Please note, silent aspiration cannot be ruled out at bedside. The patient is a 69 year old female referred for a repeat BSE. The patient was initially assessed 04/18/25 following being extubating and had noted coughing with thin liquid and mildly thick liquid. An MBS was attempted Monday04/18/25 but canceled due to patient's medical status for completing. Speech treatment was initiated 04/19/25 the patient was able to complete an effortful swallow with ice chip trials and had a consistent clear vocal quality without CSA. The RADIOLOGY ADMINISTRATOR advanced the patient to ice chip one at a time for comfort and discussed re-assessing swallow function for advancement to PO intake on 04/20 if patient's overall alertness and strength continued to improve. Orders received to evaluate the patient with a new BSE for possible diet initiation as noted above. Family is at bedside. Oral Motor Exam: Patient is without dentures as they are at home, she does have some lingual pumping and extra time is required for bolus formation but otherwise the patient had timely oral preparation for 5cc/tsp thin, cup thin, straw thin, and puree. The patient required extra time for solids due to being edentulous and had some minimal oral residual on the tongue base. Pharyngeal stage: The patient demonstrated a timely swallow across consistencies, with good laryngeal elevation, and no CSA such as coughing, choking, or vocal quality change. Discussed results with family, Nurse Shahla and physician Dr. Anderson. Recommend diet initiation to the following 1. Puree Diet / Level 4, 2. Thin Liquid / Level 0 3. Small bites and Drinks 4. Upright with meals 5. Staff assistance with meals. 6. Will assess for possible further diet advancement tomorrow to minced and moist / Level 5. The patient may not require MBS on Monday. Speech services to continue to follow.
[2025-04-20] MEDS: VANCOMYCIN 1,500 MG/NS 500 ML 1,500 MG/500 ML BAG 250 MG IVPB (15:18)
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
[2025-04-20] MEDS: RIVAROXABAN 2.5 MG TABLET PO (21:07)
[2025-04-21] VITALS (17 sets, daily range): BP systolic 167–179; BP diastolic 59–60; PULSE 55–78; RESP 18–27; TEMP 36.9; O2SAT 86–99
[2025-04-21] MEDS: IPRATROPIUM 0.5 MG/ALBUTEROL SULFATE 2.5 MG AMPUL.NEB 3 ML INHALATION ×4 (01:52→20:26)
[2025-04-21 05:21] LABS: Hematocrit 32.2 % (37.0-47.0); Hemoglobin 9.9 g/dL (12.0-15.0); Immature Granulocyte Percent A 0.8 % (0-0.5); Lymphocytes Absolute Auto 0.89 K/mm3 (0.9-3.2); Mean Corpuscular HGB Conc 30.7 g/dl (32-36); Mean Corpuscular Hemoglobin 29.1 pg (26-34); Mean Corpuscular Volume 94.7 fl (80-100); Nucleated Red Blood Cells Absolute Auto 0.000 K/mm3 (0.0-0.012); Nucleated Red Blood Cells Perc 0.0 % (0.0-0.2); Platelet Count Result 138 k/mm3 (150-375); Red Blood Count 3.40 M/mm3 (4.2-5.4); White Blood Count 8.7 K/mm3 (4.5-10.0)
[2025-04-21 05:48] LABS: Alanine Aminotransferase 33 U/L (6-35); Albumin Level 3.4 g/dL (3.5-5.1); Alkaline Phosphatase 130 U/L (38-126); Anion Gap 10 mmol/L (4-12); Aspartate Amino Transferase 44 U/L (14-36); Bilirubin,Total 0.6 mg/dL (0.2-1.3); Blood Urea Nitrogen 46 mg/dL (7-17); Calcium 9.6 mg/dL (8.4-10.2); Carbon Dioxide 19 mmol/L (22-30); Chloride 118 mmol/L (98-107); Estimated CRCL calculation 74 ml/min; Estimated Glomerular Filt Rate 59; Glucose 185 mg/dL (65-110); Magnesium 2.4 mg/dL (1.6-2.3); Potassium 3.5 mmol/L (3.4-5.0); Sodium 147 mmol/L (137-145); Total Protein 6.5 g/dL (6.3-8.2)
--- NOTE | 2025-04-21 08:31 | PM.IMPN ---
Progress Note: A&P Assessment and Plan (1) Intentional overdose of calcium-channel ryne: Code(s): T46.1X2A - Poisoning by calcium-channel blockers, intentional self-harm, initial encounter Status: Acute Assessment and Plan: Patient with calcium channel ryne/amlodipine overdose causing severe hypotension, bradycardia. Poison Control was notified and following and recommended insulin infusion. Status post multiple doses of calcium chloride, calcium gluconate, epinephrine infusion, insulin infusion BP 172/55, heart rate be tuned 90-93 Hold hydralazine if heart rate is greater than 90, will add labetalol Hold labetalol if blood pressure is less than 90/60, heart rate less than 60 Restart her home medication including losartan and amlodipine Blood pressure goal 130/80 Continue to monitor vital signs (2) Intentional drug overdose: Code(s): T50.902A - Poisoning by unspecified drugs, medicaments and biological substances, intentional self-harm, initial encounter Status: Acute Assessment and Plan: Patient overdosed on multiple other medications, most concerning are Tylenol, losartan, baclofen, aripiprazole, duloxetine, gabapentin, clopidogrel, rivaroxaban Psychiatric evaluation before discharge-consult is ordered. -INR is 1.3 -status post IV fluids, -continue monitor urine output (3) Suicide attempt: Code(s): T14.91XA - Suicide attempt, initial encounter Status: Acute Assessment and Plan: Likely suicidal attempt/ideation - According the family she did tell them just over life, cannot do it anymore -once patient is medically stable will have care coordination and crisis management evaluate the patient for inpatient psych (4) Shock circulatory: Code(s): R57.9 - Shock, unspecified Status: Acute Assessment and Plan: Circulatory shock likely related to losartan, amlodipine and multiple other medications Resolved, lactic acid normalized, blood culture no growth to date 04/14/2025, The sputum grows E coli and MRSA, urine culture grows E coli- susceptible for ceftriaxone Continue doxycycline for 8 days (5) Respiratory failure: Code(s): J96.90 - Respiratory failure, unspecified, unspecified whether with hypoxia or hypercapnia Status: Acute Assessment and Plan: Acute respiratory failure likely related to altered mental status, aspiration pneumonia due to emesis upon arrival to the ER off of mechanical ventilation and intubation Continue bronchodilator, chest physiotherapy, and incentive spirometry CPAP/BiPAP at HS p.r.n. Resolved, on room air. (6) Aspiration pneumonia: Code(s): J69.0 - Pneumonitis due to inhalation of food and vomit Status: Acute Assessment and Plan: Patient had emesis with altered mental status, chest x-ray showed possible atelectasis versus pneumonia likely aspiration Continue doxycycline for 8 days (7) Diabetes mellitus: Code(s): E11.9 - Type 2 diabetes mellitus without complications Status: Acute Assessment and Plan: At home she takes NovoLog 2 units t.i.d. , Soliqua () 45 units b.i.d. POCT, sliding scale, hypoglycemia protocol (8) Electrolyte imbalance: Code(s): E87.8 - Other disorders of electrolyte and fluid balance, not elsewhere classified Status: Acute Assessment and Plan: Potassium improved after Lokelma x1 and bicarb (04/16) Continue to monitor (9) Peripheral arterial disease with history of revascularization: Code(s): I73.9 - Peripheral vascular disease, unspecified; Z98.890 - Other specified postprocedural states Status: Acute Assessment and Plan: History of revascularization and stent placement Continue home does Xarelto 2.5 mg b.i.d. and Plavix 75 mg p.o. daily, aspirin 81 mg daily, atorvastatin 80 mg HS (10) Bipolar 1 disorder, depressed, severe: Code(s): F31.4 - Bipolar disorder, current episode depressed, severe, without psychotic features Status: Acute Assessment and Plan: Recent suicidal attempt Psychiatry was consulted, appreciate recs Discontinue lamotrigine and amplify Continue duloxetine Start Seroquel; day 1- 50 mg q.h.s., day 2 -100 mg q.h.s., days 3- 150 mg q.h.s. and day 4. 200 mg q.h.s. Patient was provided with National suicide and crisis lifeline (720) Patient was counseled to follow outpatient psychotherapy for mood and anxiety management Time Spent With Patient Time: 35 minutes Subjective Date/time seen: 04/21/25 08:31 Interval history: She passed swallow study yesterday. She is in the room air. Psychiatry evaluated her yesterday and recommended with Seroquel increasing dose. Will discontinue lamotrigine and Abilify. She was given that life crisis line. She was counseled with outpatient follow-up with the psychotherapy. She denies any shortness of breath or chest pain. Exam Narrative: General: Morbidly obese HEENT:? Pupils equal and reactive, sclera is clear Neck:? Supple Respiratory:? Clear to auscultation bilaterally, no wheezing/rhonchi/crackles Cardiac:? Regular rate rhythm, S1 and S2 appreciated. No murmur/gallop/regurgitation Abdomen:? 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 Alert and oriented to person, place, and situation. She has smack her lip. Right hand tremor. Skin:? Multiple healing wounds on the bilateral lower extremity Psych:? Mood appropriate Objective Data Vital Signs Vital Signs: Vital Signs - 24 hr 04/20/25 09:39 04/20/25 14:00 04/20/25 14:26 Temperature Pulse Rate 76 71 76 Respiratory Rate 17 Blood Pressure 168/73 H Pulse Oximetry Oxygen Delivery Oxygen Flow Rate 04/20/25 15:18 04/20/25 16:00 04/20/25 16:21 Temperature 36.6 C Pulse Rate 88 86 Respiratory Rate 18 Blood Pressure 193/75 H 193/75 H Pulse Oximetry 94 Oxygen Delivery Oxygen Flow Rate 04/20/25 20:00 04/20/25 20:00 04/20/25 20:47 Temperature 36.8 C Pulse Rate 76 73 Respiratory Rate 24 H 17 Blood Pressure 187/58 H Pulse Oximetry 90 86 L Oxygen Delivery Nasal Cannula Oxygen Flow Rate 4 04/20/25 20:59 04/20/25 21:02 04/20/25 22:04 Temperature Pulse Rate 76 75 75 Respiratory Rate 17 Blood Pressure 184/58 H Pulse Oximetry Oxygen Delivery Oxygen Flow Rate 04/20/25 22:21 04/20/25 22:22 04/21/25 01:55 Temperature Pulse Rate 74 74 Respiratory Rate 30 H 26 H Blood Pressure Pulse Oximetry 95 93 95 Oxygen Delivery Autopap Nasal Cannula Autopap Oxygen Flow Rate 3 04/21/25 01:56 04/21/25 02:04 04/21/25 07:20 Temperature 36.9 C Pulse Rate 76 76 62 Respiratory Rate 26 H 26 H 22 H Blood Pressure 179/60 H Pulse Oximetry 98 Oxygen Delivery Oxygen Flow Rate 04/21/25 08:18 04/21/25 08:18 Temperature Pulse Rate 70 Respiratory Rate 26 H Blood Pressure Pulse Oximetry 96 Oxygen Delivery Nasal Cannula Oxygen Flow Rate 3 Intake/Output Intake/Output: Intake & Output 04/18/25 04/19/25 04/20/25 04/21/25 23:59 23:59 23:59 23:59 Intake Total 942.9 1440 350 100 Output Total 3900 3900 2325 1000 [facility]2957.1 -2460 -1975 -900 Meds/Results Medications: Active Medications Generic Name Dose Route Start Last Admin Trade Name Freq PRN Reason Stop Dose Admin Albuterol/Ipratropium 3 ml 04/15/25 07:30 04/21/25 08:17 Ipratropium 0.5 Mg/Albuterol Sulfate 2.5 Mg Ampul.Neb 3 Ml INHALATION 3 ml Q6HRT [facility] Administration Amlodipine Besylate 10 mg 04/21/25 09:00 Amlodipine Besylate 10 Mg Tablet PO DAILY [facility] Aspirin 81 mg 04/19/25 14:30 04/20/25 09:32 Aspirin 81 Mg Enteric Tablet PO Not Given DAILY [facility] Atorvastatin Calcium 80 mg 04/19/25 14:30 04/20/25 09:33 Atorvastatin 40 Mg Tablet PO Not Given DAILY [facility] Baclofen 10 mg 04/21/25 08:19 Baclofen 10 Mg Tablet PO TID PRN Muscle Spasm Calcium Carbonate 500 mg 04/21/25 09:00 Calcium Carbonate (Oscal) 500 Mg Tablet PO QAM [facility] Clopidogrel Bisulfate 75 mg 04/19/25 14:30 04/20/25 09:33 Clopidogrel Bisulfate 75 Mg Tablet PO Not Given DAILY [facility] Dextrose 12.5 gm 04/17/25 09:09 Dextrose 50% 25 Gm/50 Ml Syringe IV PUSH PRN PRN Hypoglycemia Protocol Duloxetine HCl 60 mg 04/19/25 14:30 04/20/25 09:33 Duloxetine Hcl 60 Mg Capsule.Dr PO Not Given QAM [facility] Ezetimibe 10 mg 04/19/25 14:30 04/20/25 09:33 Ezetimibe 10 Mg Tablet PO Not Given DAILY [facility] Empagliflozin 25 mg 04/19/25 14:35 04/20/25 09:33 Empagliflozin 25 Mg Tablet PO 05/20/25 14:34 Not Given DAILY [facility] Gabapentin 300 mg 04/21/25 09:00 Gabapentin 300 Mg Capsule PO DAILY@0900,1400,2100 [facility] Glucagon 1 mg 04/17/25 09:09 Glucagon For Inj 1 Mg Vial IM PRN PRN Hypoglycemia Protocol Glucose 15 gm 04/17/25 09:09 Glucose Oral Gel 15 Gm Of Glucse In 37.5 Gm Tube PO PRN PRN Hypoglycemia Protocol Hydralazine HCl 10 mg 04/18/25 11:43 04/21/25 01:50 Hydralazine Hcl 20 Mg/Ml Vial IV PUSH 10 mg Q4H PRN Administration Blood Pressure - High Hydralazine HCl 50 mg 04/19/25 14:00 04/20/25 21:07 Hydralazine Hcl 50 Mg Tablet PO 50 mg 0900,1400,2100 [facility] Administration Dextrose 1,000 mls @ 100 mls/hr 04/17/25 09:09 Dextrose 5% 1,000 Ml IVPB PRN PRN Hypoglycemia Protocol Vancomycin HCl 1,500 mg in 500 mls @ 250 mls/hr 04/19/25 03:00 04/20/25 15:18 Vancomycin 1,500 Mg/Ns 500 Ml IVPB 250 mls/hr Q18H [facility] Administration Insulin Aspart 3 - 6 units 04/17/25 12:00 04/21/25 06:00 Insulin Aspart (*Bkc) 100 Units/Ml SUB-Q Not Given Q6HR [facility] Protocol Labetalol HCl 10 mg 04/20/25 11:43 Labetalol Hcl Inj 100 Mg/20 Ml Vial IV PUSH BID PRN Blood Pressure - High Losartan Potassium 100 mg 04/21/25 09:00 Losartan Potassium 100 Mg Tablet PO DAILY [facility] Melatonin 5 mg 04/21/25 21:00 Melatonin 5 Mg Tablet PO HS [facility] Metoprolol Tartrate 5 mg 04/19/25 21:00 04/21/25 03:32 Metoprolol Tartrate Inj 5 Mg/5 Ml Vial IV PUSH Not Given Q6H [facility] Pantoprazole Sodium 40 mg 04/15/25 08:00 04/20/25 09:39 Pantoprazole Sodium Iv 40 Mg Vial IV PUSH 40 mg QAM [facility] Administration Quetiapine Fumarate 50 mg 04/21/25 21:00 Quetiapine Fumarate 25 Mg Tablet PO HS [facility] Quetiapine Fumarate 100 mg 04/22/25 21:00 Quetiapine Fumarate 100 Mg Tablet PO HS [facility] Quetiapine Fumarate 100 mg/ 150 mg 04/23/25 21:00 Quetiapine Fumarate 50 mg PO HS [facility] Quetiapine Fumarate 200 mg 04/24/25 21:00 Quetiapine Fumarate 100 Mg Tablet PO HS [facility] Rivaroxaban 2.5 mg 04/19/25 21:00 04/20/25 21:07 Rivaroxaban 2.5 Mg Tablet PO 2.5 mg Q12H [facility] Administration Senna/Docusate Sodium 2 tab 04/21/25 08:19 Senna/Docusate Sodium Tablet PO BID PRN Constipation Sodium Chloride 20 ml 04/15/25 02:07 04/20/25 06:24 Central Line Flush IV PUSH 20 ml PRN PRN Administration after blood draws Radiology Results: ITS Impressions Abdomen X-Ray 04/14/25 20:46 IMPRESSION: 1. Endotracheal tube and orogastric tube in expected positions. 2. Decreased left lung volume with elevation the left hemidiaphragm and patchy airspace opacities throughout the left lung which could represent atelectasis and/or pneumonia. 3. Pulmonary vascular congestion with increased interstitial pattern in the right perihilar region which could represent mild pulmonary edema and/or pneumonia. Head CT 04/15/25 08:50 IMPRESSION: 1. No acute intracranial abnormality. Chest X-Ray 04/20/25 10:15 Impression: 1: Bilateral interstitial infiltrates with consolidation in the left lung base. Findings compatible with edema with superimposed atelectasis/pneumonia. Labs Labs: Laboratory Results - last 24 hr 04/20/25 04/20/25 04/21/25 12:02 18:03 00:40 WBC RBC Hgb Hct MCV MCH MCHC RDW Plt Count MPV Immature Gran % (Auto) Neut % (Auto) Lymph % (Auto) Graves % (Auto) Eos % (Auto) Baso % (Auto) Lymph # (Auto) Graves # (Auto) Eos # (Auto) Baso # (Auto) Abs Immat Gran (auto) Absolute Neuts (auto) Absolute Nucleated RBC Nucleated RBC % Sodium Potassium Chloride Carbon Dioxide Anion Gap BUN Creatinine Estim Creat Clear Calc Estimated GFR Glucose POC Capillary Glucose 163 H 171 H 163 H Calcium Magnesium Total Bilirubin AST ALT Alkaline Phosphatase Total Protein Albumin 04/21/25 05:12 WBC 8.7 RBC 3.40 L Hgb 9.9 L Hct 32.2 L MCV 94.7 MCH 29.1 MCHC 30.7 L RDW 15.5 H Plt Count 138 L MPV 10.0 Immature Gran % (Auto) 0.8 H Neut % (Auto) 80.6 H Lymph % (Auto) 10.2 L Graves % (Auto) 7.1 Eos % (Auto) 0.8 Baso % (Auto) 0.5 Lymph # (Auto) 0.89 L Graves # (Auto) 0.6 Eos # (Auto) 0.1 Baso # (Auto) 0.0 Abs Immat Gran (auto) 0.07 H Absolute Neuts (auto) 7.0 H Absolute Nucleated RBC 0.000 Nucleated RBC % 0.0 Sodium 147 H Potassium 3.5 Chloride 118 H Carbon Dioxide 19 L Anion Gap 10 BUN 46 H Creatinine 0.95 Estim Creat Clear Calc 74 Estimated GFR 59 Glucose 185 H POC Capillary Glucose Calcium 9.6 Magnesium 2.4 H Total Bilirubin 0.6 AST 44 H ALT 33 Alkaline Phosphatase 130 H Total Protein 6.5 Albumin 3.4 L Quality VTE Prophylaxis VTE prophylaxis: mechanical ordered and pharmacologic ordered (xarelto)
[2025-04-21] MEDS: LOSARTAN POTASSIUM 100 MG TABLET PO (09:47)
[2025-04-21] MEDS: RIVAROXABAN 2.5 MG TABLET PO ×2 (09:47→21:30)
[2025-04-21] MEDS: EZETIMIBE 10 MG TABLET PO (09:47)
[2025-04-21] MEDS: CLOPIDOGREL BISULFATE 75 MG TABLET PO (09:47)
[2025-04-21] MEDS: DULoxetine HCL 60 MG CAPSULE.DR PO (09:47)
[2025-04-21] MEDS: METOPROLOL TARTRATE INJ 5 MG/5 ML VIAL IV PUSH ×3 (09:48→21:30)
[2025-04-21] MEDS: ATORVASTATIN 40 MG TABLET 80 MG PO (09:48)
[2025-04-21] MEDS: EMPAGLIFLOZIN 25 MG TABLET PO (09:48)
[2025-04-21] MEDS: ASPIRIN 81 MG ENTERIC TABLET PO (09:48)
[2025-04-21] MEDS: CALCIUM CARBONATE (OSCAL) 500 MG TABLET PO (09:49)
[2025-04-21] MEDS: PANTOPRAZOLE SODIUM IV 40 MG VIAL IV PUSH (09:50)
[2025-04-21] MEDS: GABAPENTIN 300 MG CAPSULE PO ×3 (09:55→21:30)
[2025-04-21] MEDS: INSULIN ASPART (*BKC) 100 UNITS/ML SUB-Q ×2 (12:56→18:34)
[2025-04-21] MEDS: DOXYCYCLINE HYCLATE 100 MG TABLET PO ×2 (12:56→21:30)
[2025-04-21] MEDS: LIDOCAINE 5% PATCH 1 PATCH TRANSDERM (18:31)
[2025-04-21] MEDS: MELATONIN 5 MG TABLET PO (21:30)
[2025-04-22] VITALS (19 sets, daily range): BP systolic 125–164; BP diastolic 47–87; PULSE 53–84; RESP 14–23; TEMP 36.5–36.8; O2SAT 96–100
[2025-04-22] MEDS: IPRATROPIUM 0.5 MG/ALBUTEROL SULFATE 2.5 MG AMPUL.NEB 3 ML INHALATION ×4 (01:58→20:11)
[2025-04-22] MEDS: METOPROLOL TARTRATE INJ 5 MG/5 ML VIAL IV PUSH ×2 (03:25→09:50)
[2025-04-22 04:10] LABS: Hematocrit 32.4 % (37.0-47.0); Hemoglobin 10.1 g/dL (12.0-15.0); Immature Granulocyte Percent A 0.3 % (0-0.5); Lymphocytes Absolute Auto 1.19 K/mm3 (0.9-3.2); Mean Corpuscular HGB Conc 31.2 g/dl (32-36); Mean Corpuscular Hemoglobin 29.4 pg (26-34); Mean Corpuscular Volume 94.2 fl (80-100); Nucleated Red Blood Cells Absolute Auto 0.000 K/mm3 (0.0-0.012); Nucleated Red Blood Cells Perc 0.0 % (0.0-0.2); Platelet Count Result 134 k/mm3 (150-375); Red Blood Count 3.44 M/mm3 (4.2-5.4); White Blood Count 7.7 K/mm3 (4.5-10.0)
[2025-04-22 04:33] LABS: Alanine Aminotransferase 44 U/L (6-35); Albumin Level 3.3 g/dL (3.5-5.1); Alkaline Phosphatase 139 U/L (38-126); Anion Gap 10 mmol/L (4-12); Aspartate Amino Transferase 40 U/L (14-36); Bilirubin,Total 0.5 mg/dL (0.2-1.3); Blood Urea Nitrogen 49 mg/dL (7-17); Calcium 9.5 mg/dL (8.4-10.2); Carbon Dioxide 21 mmol/L (22-30); Chloride 116 mmol/L (98-107); Estimated CRCL calculation 66 ml/min; Estimated Glomerular Filt Rate 52; Glucose 192 mg/dL (65-110); Magnesium 2.5 mg/dL (1.6-2.3); Potassium 3.1 mmol/L (3.4-5.0); Sodium 147 mmol/L (137-145); Total Protein 6.3 g/dL (6.3-8.2)
--- NOTE | 2025-04-22 08:09 | PCRCNOTE ---
patient refusing vest therapy.
[2025-04-22] MEDS: DOXYCYCLINE HYCLATE 100 MG TABLET PO ×2 (09:49→21:06)
[2025-04-22] MEDS: ASPIRIN 81 MG ENTERIC TABLET PO (09:49)
[2025-04-22] MEDS: RIVAROXABAN 2.5 MG TABLET PO ×2 (09:49→21:07)
[2025-04-22] MEDS: CLOPIDOGREL BISULFATE 75 MG TABLET PO (09:49)
[2025-04-22] MEDS: LOSARTAN POTASSIUM 100 MG TABLET PO (09:49)
[2025-04-22] MEDS: EZETIMIBE 10 MG TABLET PO (09:49)
[2025-04-22] MEDS: CALCIUM CARBONATE (OSCAL) 500 MG TABLET PO (09:49)
[2025-04-22] MEDS: GABAPENTIN 300 MG CAPSULE PO ×3 (09:49→21:06)
[2025-04-22] MEDS: ATORVASTATIN 40 MG TABLET 80 MG PO (09:49)
[2025-04-22] MEDS: EMPAGLIFLOZIN 25 MG TABLET PO (09:49)
[2025-04-22] MEDS: DULoxetine HCL 60 MG CAPSULE.DR PO (09:49)
[2025-04-22] MEDS: PANTOPRAZOLE SODIUM IV 40 MG VIAL IV PUSH (09:50)
[2025-04-22] MEDS: LIDOCAINE 5% PATCH 1 PATCH TRANSDERM (09:51)
--- NOTE | 2025-04-22 10:16 | REHSTMBS ---
Assessment and note entered by RHIANNA Rainey Modified Barium Swallow Evaluation Feeding Type Recommended Oral Food Consistency Minced and Moist, Level 5 Treatment Recommendations Effortful Swallow,Laryngeal Elevation Exercise, Tongue Base Exercise ST Clinical Summary The patient is a 69 year old female seen for a MBS study based on BSE recommendations and noted coughing with thin liquid. The patient has been followed by [facility] over the weekend and advanced to a Puree/thin liquid diet with small controlled drinks and upright posture. The patient was seen in a lateral view and presented the following consistencies: 5cc/tsp thin liquid barium, straw trials thin liquid barium, pudding mixed with barium paste, and cracker coated with barium paste. Oral Stage: Timely oral preparation and transit for all consistencies. The patient is edentulous and states she normally eats without her dentures. Extra time was allowed for mastication but was functional. Pharyngeal Stage: Swallow initiation was timely and within normal limits without viewed aspiration or penetration, for 5cc/tsp thin, pudding mixed with barium paste and cracker coated with barium paste. Recommend: 1. Minced and Moist Diet / Level 5 (May advance as tolerated) 2. Thin liquid / Level 0 3. Small drinks (with straw or cup) 4. Chin -tuck position with drinks 5. Upright with meals 6. [facility] to complete training with new compensatory techniques and address laryngeal elevation and Tongue base retraction. When presented thin liquid via straw the patient was viewed to have flash to trace laryngeal penetration during the swallow. Penetrated material was ejected with completion of the swallow. Penetration was secondary to reduced laryngeal elevation. In addition trace residual was viewed to remain in the valleculae secondary to reduced tongue base retraction. The patient independently cleared residual in the vallecula with a repeat swallow. Laryngeal penetration was eliminated with a chin-flexed position during the swallow and small controlled bolus drinks. The patient was able to comply with the chin tuck techniques with cup and straw trials.
--- NOTE | 2025-04-22 11:08 | PCNFU ---
Nutrition Follow-Up Complete: Suboptimal Energy Intake as related to mechanical as evidenced by NPO. Goal: Meet estimated nutritional needs Pt current nutrition is Pureed, Level 4/DBCC. Nutrition recommendation: Minced and Moist, Level 5/DBCC Last recorded weight is 136.6 kg, down from 141.5 kg. Bowel Motility: +BM reported 04/22 Labs Reviewed:Mg 2.5, BUN 49, Cr 1.06, K 3.1, Hct 32.4, Hgb 10.1, Alb 3.3, Na 147 Meds Noted:Protonix, Cymbalta Skin: WNL Additional Notes: Patient had bedside swallow eval 04/20. Diet order advanced to Pureed, Level 4. MBS today 04/22 recommending Minced and Moist, Level 5/DBCC. Agree with diet orders. Will monitor weight, labs, skin, diet orders, meds, every 5 days.
[2025-04-22] MEDS: BACLOFEN 10 MG TABLET PO ×2 (11:44→19:24)
--- NOTE | 2025-04-22 15:08 | PCOTNOTE ---
Per RN, Patient has crisis coming to see her, unavailable at this time. He states she could be transferred to a different facility this evening. Patient has decreased motivation and participation will all activity.
--- NOTE | 2025-04-22 17:31 | P.PNIM_ITS ---
Progress Note: A&P Assessment and Plan (1) Intentional overdose of calcium-channel ryne: Code(s): T46.1X2A - Poisoning by calcium-channel blockers, intentional self-harm, initial encounter Status: Acute Assessment and Plan: Patient with calcium channel ryne/amlodipine overdose causing severe hypotension, bradycardia. Poison Control was notified and following and recommended insulin infusion. Status post multiple doses of calcium chloride, calcium gluconate, epinephrine infusion, insulin infusion BP 172/55, heart rate be tuned 90-93 Hold hydralazine if heart rate is greater than 90, will add labetalol Hold labetalol if blood pressure is less than 90/60, heart rate less than 60 Restart her home medication including losartan and amlodipine Blood pressure goal 130/80 Continue to monitor vital signs Crisis management signed contract with the patient and noted patient can discharge to SNF WIll follow up with Psych in week post discharge and outpatient CBT/DBT (2) Intentional drug overdose: Code(s): T50.902A - Poisoning by unspecified drugs, medicaments and biological substances, intentional self-harm, initial encounter Status: Acute Assessment and Plan: Patient overdosed on multiple other medications, most concerning are Tylenol, losartan, baclofen, aripiprazole, duloxetine, gabapentin, clopidogrel, rivaroxaban Psychiatric evaluation before discharge-consult is ordered. -INR is 1.3 -status post IV fluids, -continue monitor urine output (3) Suicide attempt: Code(s): T14.91XA - Suicide attempt, initial encounter Status: Acute Assessment and Plan: Likely suicidal attempt/ideation - According the family she did tell them just over life, cannot do it anymore -medically stable -Psych eval noted Crisis management now okay with SNF discharge as noted above F/u with psych as noted above (4) Shock circulatory: Code(s): R57.9 - Shock, unspecified Status: Acute Assessment and Plan: Circulatory shock likely related to losartan, amlodipine and multiple other medications Resolved, lactic acid normalized, blood culture no growth to date 04/14/2025, The sputum grows E coli and MRSA, urine culture grows E coli- susceptible for ceftriaxone Continue doxycycline for 8 days, to complete on 04/24 (5) Respiratory failure: Code(s): J96.90 - Respiratory failure, unspecified, unspecified whether with hypoxia or hypercapnia Status: Acute Assessment and Plan: Acute respiratory failure likely related to altered mental status, aspiration pneumonia due to emesis upon arrival to the ER off of mechanical ventilation and intubation Continue bronchodilator, chest physiotherapy, and incentive spirometry CPAP/BiPAP at HS p.r.n. Resolved, on room air. (6) Aspiration pneumonia: Code(s): J69.0 - Pneumonitis due to inhalation of food and vomit Status: Acute Assessment and Plan: Patient had emesis with altered mental status, chest x-ray showed possible atelectasis versus pneumonia likely aspiration Continue doxycycline for 8 days (7) Diabetes mellitus: Code(s): E11.9 - Type 2 diabetes mellitus without complications Status: Acute Assessment and Plan: At home she takes NovoLog 2 units t.i.d. , Soliqua () 45 units b.i.d. POCT, sliding scale, hypoglycemia protocol (8) Electrolyte imbalance: Code(s): E87.8 - Other disorders of electrolyte and fluid balance, not elsewhere classified Status: Acute Assessment and Plan: Potassium improved after Lokelma x1 and bicarb (04/16) Continue to monitor (9) Peripheral arterial disease with history of revascularization: Code(s): I73.9 - Peripheral vascular disease, unspecified; Z98.890 - Other specified postprocedural states Status: Acute Assessment and Plan: History of revascularization and stent placement Continue home does Xarelto 2.5 mg b.i.d. and Plavix 75 mg p.o. daily, aspirin 81 mg daily, atorvastatin 80 mg HS (10) Bipolar 1 disorder, depressed, severe: Code(s): F31.4 - Bipolar disorder, current episode depressed, severe, without psychotic features Status: Acute Assessment and Plan: Recent suicidal attempt Psychiatry was consulted, appreciate recs Discontinue lamotrigine, Abilify adn Amantadine per pSych Continue duloxetine Start Seroquel; day 1- 50 mg q.h.s., day 2 -100 mg q.h.s., days 3- 150 mg q.h.s. and day 4. 200 mg q.h.s. Patient was provided with National suicide and crisis lifeline (694) Patient was counseled to follow outpatient psychotherapy for mood and anxiety management Contineu Seroquel and DUloxetine psych following Plan DVT prophylaxis on Xarelto Removed Olvera and place purewick possibel discharge tomorrow Subjective Date/time seen: 04/22/25 17:31 Interval history: Comfortable at bedside Crisis evaluated this evening and had patient sign a contract, thus patient will be discharged to [facility] Review of Systems Review of Systems: All systems reviewed & are unremarkable except as noted in HPI and below ROS unobtainable: Yes unobtainable due to endotracheal tube, unobtainable due to medical condition and unobtainable due to mental status Exam Narrative: General: Morbidly obese HEENT:? Pupils equal and reactive, sclera is clear Neck:? Supple Respiratory:? Clear to auscultation bilaterally, no wheezing/rhonchi/crackles Cardiac:? Regular rate rhythm, S1 and S2 appreciated. No murmur/gallop/regurgitation Abdomen:? 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 Alert and oriented to person, place, and situation. She has smack her lip. Right hand tremor. Skin:? Multiple healing wounds on the bilateral lower extremity Psych:? Mood appropriate Objective Data Vital Signs Vital Signs: Vital Signs - 24 hr 04/21/25 20:00 04/21/25 20:26 04/21/25 20:27 Temperature Pulse Rate 70 60 65 Respiratory Rate 18 20 20 Blood Pressure Pulse Oximetry 99 91 Oxygen Delivery Room Air Room Air Fraction of Inspired Oxygen 30 2 04/21/25 20:36 04/21/25 23:21 04/22/25 01:59 Temperature Pulse Rate 65 55 L 70 Respiratory Rate 20 27 H 15 Blood Pressure Pulse Oximetry 97 Oxygen Delivery Autopap Fraction of Inspired Oxygen 04/22/25 02:01 04/22/25 02:08 04/22/25 03:25 Temperature Pulse Rate 65 71 78 Respiratory Rate 15 15 Blood Pressure Pulse Oximetry 97 Oxygen Delivery Autopap Fraction of Inspired Oxygen 04/22/25 04:52 04/22/25 06:00 04/22/25 07:38 Temperature 98.3 F 97.8 F Pulse Rate 67 76 54 L Respiratory Rate 14 18 16 Blood Pressure 150/47 H Pulse Oximetry 97 97 99 Oxygen Delivery Autopap Fraction of Inspired Oxygen 04/22/25 08:00 04/22/25 08:04 04/22/25 08:19 Temperature Pulse Rate 70 84 55 L Respiratory Rate 18 16 15 Blood Pressure Pulse Oximetry 99 Oxygen Delivery Room Air Fraction of Inspired Oxygen 30 04/22/25 13:40 04/22/25 13:41 04/22/25 13:53 Temperature Pulse Rate 57 L 57 L 53 L Respiratory Rate 18 18 18 Blood Pressure Pulse Oximetry 96 Oxygen Delivery Room Air Fraction of Inspired Oxygen Intake/Output Intake/Output: Intake & Output 04/19/25 04/20/25 04/21/25 04/22/25 23:59 23:59 23:59 23:59 Intake Total 0888 545 5246 1121 Output Total 3900 2325 2200 1200 Balance -2460 -1975 -720 -79 Meds/Results Medications: Active Medications Generic Name Dose Route Start Last Admin Trade Name Freq PRN Reason Stop Dose Admin Albuterol/Ipratropium 3 ml 04/15/25 07:30 04/22/25 13:38 Ipratropium 0.5 Mg/Albuterol Sulfate 2.5 Mg Ampul.Neb 3 Ml INHALATION 3 ml Q6HRT FARHANA Administration Amlodipine Besylate 10 mg 04/21/25 09:00 04/22/25 09:49 Amlodipine Besylate 10 Mg Tablet PO 10 mg DAILY FARHANA Administration Aspirin 81 mg 04/19/25 14:30 04/22/25 09:49 Aspirin 81 Mg Enteric Tablet PO 81 mg DAILY FARHANA Administration Atorvastatin Calcium 80 mg 04/19/25 14:30 04/22/25 09:49 Atorvastatin 40 Mg Tablet PO 80 mg DAILY FARHANA Administration Baclofen 10 mg 04/21/25 08:19 04/22/25 11:44 Baclofen 10 Mg Tablet PO 10 mg TID PRN Administration Muscle Spasm Calcium Carbonate 500 mg 04/21/25 09:00 04/22/25 09:49 Calcium Carbonate (Oscal) 500 Mg Tablet PO 500 mg QAM FARHANA Administration Clopidogrel Bisulfate 75 mg 04/19/25 14:30 04/22/25 09:49 Clopidogrel Bisulfate 75 Mg Tablet PO 75 mg DAILY FARHANA Administration Dextrose 12.5 gm 04/17/25 09:09 Dextrose 50% 25 Gm/50 Ml Syringe IV PUSH PRN PRN Hypoglycemia Protocol Doxycycline Hyclate 100 mg 04/21/25 12:00 04/22/25 09:49 Doxycycline Hyclate 100 Mg Tablet PO 04/24/25 21:01 100 mg Q12HR FARHANA Administration Duloxetine HCl 60 mg 04/19/25 14:30 04/22/25 09:49 Duloxetine Hcl 60 Mg Capsule. PO 60 mg QAM FARHANA Administration Ezetimibe 10 mg 04/19/25 14:30 04/22/25 09:49 Ezetimibe 10 Mg Tablet PO 10 mg DAILY FARHANA Administration Empagliflozin 25 mg 04/19/25 14:35 04/22/25 09:49 Empagliflozin 25 Mg Tablet PO 05/20/25 14:34 25 mg DAILY FARHANA Administration Gabapentin 300 mg 04/21/25 21:10 04/22/25 16:04 Gabapentin 300 Mg Capsule PO 300 mg 0900,1400,2100 FARHANA Administration Glucagon 1 mg 04/17/25 09:09 Glucagon For Inj 1 Mg Vial IM PRN PRN Hypoglycemia Protocol Glucose 15 gm 04/17/25 09:09 Glucose Oral Gel 15 Gm Of Glucse In 37.5 Gm Tube PO PRN PRN Hypoglycemia Protocol Hydralazine HCl 10 mg 04/18/25 11:43 04/21/25 18:31 Hydralazine Hcl 20 Mg/Ml Vial IV PUSH 10 mg Q4H PRN Administration Blood Pressure - High Hydralazine HCl 50 mg 04/19/25 14:00 04/22/25 16:04 Hydralazine Hcl 50 Mg Tablet PO 50 mg 0900,1400,2100 FARHANA Administration Dextrose 1,000 mls @ 100 mls/hr 04/17/25 09:09 Dextrose 5% 1,000 Ml IVPB PRN PRN Hypoglycemia Protocol Insulin Aspart 3 - 6 units 04/17/25 12:00 04/22/25 16:03 Insulin Aspart (*Bkc) 100 Units/Ml SUB-Q Not Given Q6HR FARHANA Protocol Labetalol HCl 10 mg 04/20/25 11:43 Labetalol Hcl Inj 100 Mg/20 Ml Vial IV PUSH BID PRN Blood Pressure - High Lidocaine 1 patch 04/21/25 18:00 04/22/25 09:51 Lidocaine 5% Patch TRANSDERM 1 patch DAILY FARHANA Administration Losartan Potassium 100 mg 04/21/25 09:00 04/22/25 09:49 Losartan Potassium 100 Mg Tablet PO 100 mg DAILY FARHAAN Administration Melatonin 5 mg 04/21/25 21:00 04/21/25 21:30 Melatonin 5 Mg Tablet PO 5 mg HS FARHANA Administration Metoprolol Tartrate 5 mg 04/19/25 21:00 04/22/25 16:32 Metoprolol Tartrate Inj 5 Mg/5 Ml Vial IV PUSH Not Given Q6H FARHANA Pantoprazole Sodium 40 mg 04/15/25 08:00 04/22/25 09:50 Pantoprazole Sodium Iv 40 Mg Vial IV PUSH 40 mg QAM FARHANA Administration Quetiapine Fumarate 50 mg 04/21/25 21:00 04/21/25 21:30 Quetiapine Fumarate 25 Mg Tablet PO 50 mg HS FARHANA Administration Quetiapine Fumarate 100 mg 04/22/25 21:00 Quetiapine Fumarate 100 Mg Tablet PO HS FARHANA Quetiapine Fumarate 100 mg/ 150 mg 04/23/25 21:00 Quetiapine Fumarate 50 mg PO HS FARHANA Quetiapine Fumarate 200 mg 04/24/25 21:00 Quetiapine Fumarate 100 Mg Tablet PO HS FARHANA Rivaroxaban 2.5 mg 04/19/25 21:00 04/22/25 09:49 Rivaroxaban 2.5 Mg Tablet PO 2.5 mg Q12H FARHANA Administration Senna/Docusate Sodium 2 tab 04/21/25 08:19 Senna/Docusate Sodium Tablet PO BID PRN Constipation Sodium Chloride 20 ml 04/15/25 02:07 04/20/25 06:24 Central Line Flush IV PUSH 20 ml PRN PRN Administration after blood draws Radiology Results: ITS Impressions Abdomen X-Ray 04/14/25 20:46 IMPRESSION: 1. Endotracheal tube and orogastric tube in expected positions. 2. Decreased left lung volume with elevation the left hemidiaphragm and patchy airspace opacities throughout the left lung which could represent atelectasis and/or pneumonia. 3. Pulmonary vascular congestion with increased interstitial pattern in the right perihilar region which could represent mild pulmonary edema and/or pneumonia. Head CT 04/15/25 08:50 IMPRESSION: 1. No acute intracranial abnormality. Chest X-Ray 04/20/25 10:15 Impression: 1: Bilateral interstitial infiltrates with consolidation in the left lung base. Findings compatible with edema with superimposed atelectasis/pneumonia. Modified Barium Swallow 04/22/25 11:21 IMPRESSION: Laryngeal penetration without aspiration with thin liquids which improved with chin tuck position and decreased bolus size. Please correlate wit h speech pathologist findings and specific feeding recommendations. Labs Labs: Laboratory Results - last 24 hr 04/21/25 04/22/25 04/22/25 18:32 04:02 11:59 WBC 7.7 RBC 3.44 L Hgb 10.1 L Hct 32.4 L MCV 94.2 MCH 29.4 MCHC 31.2 L RDW 15.5 H Plt Count 134 L MPV 10.0 Immature Gran % (Auto) 0.3 Neut % (Auto) 74.3 H Lymph % (Auto) 15.4 L [place] % (Auto) 7.9 Eos % (Auto) 1.6 Baso % (Auto) 0.5 Lymph # (Auto) 1.19 [place] # (Auto) 0.6 Eos # (Auto) 0.1 Baso # (Auto) 0.0 Abs Immat Gran (auto) 0.02 Absolute Neuts (auto) 5.8 Absolute Nucleated RBC 0.000 Nucleated RBC % 0.0 Sodium 147 H Potassium 3.1 L Chloride 116 H Carbon Dioxide 21 L Anion Gap 10 BUN 49 H Creatinine 1.06 H Estim Creat Clear Calc 66 Estimated GFR 52 L Glucose 192 H POC Capillary Glucose 215 H 195 H Calcium 9.5 Magnesium 2.5 H Total Bilirubin 0.5 AST 40 H ALT 44 H Alkaline Phosphatase 139 H Total Protein 6.3 Albumin 3.3 L Quality VTE Prophylaxis VTE prophylaxis: mechanical ordered and pharmacologic ordered (xarelto)
[2025-04-22] MEDS: MELATONIN 5 MG TABLET PO (21:27)
--- NOTE | 2025-04-22 22:09 | PC.NURSE ---
This patient, Cassi Yo, was transferred to [facility] on 04/22/25 at 2205 via bed with one nurse and no issues. Personal belongings sent with patient. Report given to Bryon ANDRE. Appropriate documentation sent with patient.
[2025-04-23] VITALS (15 sets, daily range): BP systolic 142–165; BP diastolic 40–57; PULSE 46–67; RESP 12–27; TEMP 36.1–36.6; O2SAT 96–100
[2025-04-23] MEDS: IPRATROPIUM 0.5 MG/ALBUTEROL SULFATE 2.5 MG AMPUL.NEB 3 ML INHALATION ×4 (01:27→19:45)
[2025-04-23 04:55] LABS: Hematocrit 32.4 % (37.0-47.0); Hemoglobin 10.0 g/dL (12.0-15.0); Immature Granulocyte Percent A 0.3 % (0-0.5); Lymphocytes Absolute Auto 1.02 K/mm3 (0.9-3.2); Mean Corpuscular HGB Conc 30.9 g/dl (32-36); Mean Corpuscular Hemoglobin 28.9 pg (26-34); Mean Corpuscular Volume 93.6 fl (80-100); Nucleated Red Blood Cells Absolute Auto 0.000 K/mm3 (0.0-0.012); Nucleated Red Blood Cells Perc 0.0 % (0.0-0.2); Platelet Count Result 115 k/mm3 (150-375); Red Blood Count 3.46 M/mm3 (4.2-5.4); White Blood Count 6.8 K/mm3 (4.5-10.0)
[2025-04-23] MEDS: INSULIN ASPART (*BKC) 100 UNITS/ML SUB-Q ×2 (05:25→12:44)
[2025-04-23] MEDS: CLOPIDOGREL BISULFATE 75 MG TABLET PO (09:02)
[2025-04-23] MEDS: ASPIRIN 81 MG ENTERIC TABLET PO (09:02)
[2025-04-23] MEDS: DOXYCYCLINE HYCLATE 100 MG TABLET PO ×2 (09:02→20:11)
[2025-04-23] MEDS: DULoxetine HCL 60 MG CAPSULE.DR PO (09:02)
[2025-04-23] MEDS: CALCIUM CARBONATE (OSCAL) 500 MG TABLET PO (09:02)
[2025-04-23] MEDS: EMPAGLIFLOZIN 25 MG TABLET PO (09:02)
[2025-04-23] MEDS: EZETIMIBE 10 MG TABLET PO (09:02)
[2025-04-23] MEDS: RIVAROXABAN 2.5 MG TABLET PO ×2 (09:02→20:10)
[2025-04-23] MEDS: ATORVASTATIN 40 MG TABLET 80 MG PO (09:02)
[2025-04-23] MEDS: GABAPENTIN 300 MG CAPSULE PO ×3 (09:05→20:15)
[2025-04-23] MEDS: LOSARTAN POTASSIUM 100 MG TABLET PO (09:06)
[2025-04-23] MEDS: PANTOPRAZOLE SODIUM IV 40 MG VIAL IV PUSH (09:06)
[2025-04-23 09:12] LABS: Arterial Blood Gas Tidal Volume 450 ml; Arterial Blood Gas Ventilator rate 18 /MIN
--- NOTE | 2025-04-23 13:08 | PM.IMPN ---
Progress Note: A&P Assessment and Plan (1) Suicide attempt: Code(s): T14.91XA - Suicide attempt, initial encounter Status: Acute (2) Intentional drug overdose: Code(s): T50.902A - Poisoning by unspecified drugs, medicaments and biological substances, intentional self-harm, initial encounter Status: Acute (3) Intentional overdose of calcium-channel ryne: Code(s): T46.1X2A - Poisoning by calcium-channel blockers, intentional self-harm, initial encounter Status: Acute (4) Bipolar 1 disorder, depressed, severe: Code(s): F31.4 - Bipolar disorder, current episode depressed, severe, without psychotic features Status: Acute (5) Polysubstance abuse: Code(s): F19.10 - Other psychoactive substance abuse, uncomplicated Status: Acute (6) Diabetes mellitus: Code(s): E11.9 - Type 2 diabetes mellitus without complications Status: Acute (7) Urinary retention: Code(s): R33.9 - Retention of urine, unspecified Status: Acute Plan 69-year-old female who presented after an intentional overdose of her morning medications, reportedly due to suicidal ideation (just over life, can't do it anymore). Family members called EMS when she told them she took 10 of each of her morning medications. 1. Intentional drug overdose: Patient with calcium channel ryne/amlodipine overdose causing severe hypotension, bradycardia. Poison Control was notified and following and recommended insulin infusion. Status post multiple doses of calcium chloride, calcium gluconate, epinephrine infusion, insulin infusion Crisis management signed contract with the patient and noted patient can discharge to SNF WIll follow up with Psych in week post discharge and outpatient CBT/DBT 2. Circulatory shock: Resolved 3. Respiratory failure: Resolved, currently on room air Requiring CPAP at night Possible aspiration pneumonia due to emesis in the ER upon arrival Was intubated,/extubated now Currently on doxycycline Might have a component of obstructive sleep apnea due to her body habitus Might benefit from outpatient sleep study 4. Type 2 diabetes mellitus: Switch to blood glucose checked t.i.d. a.c. and HS Will start on Lantus 20 units Mealtime 7 units insulin t.i.d. a.c. Adjust dose as needed 5.History of revascularization and stent placement Continue home does Xarelto 2.5 mg b.i.d. and Plavix 75 mg p.o. daily, aspirin 81 mg daily, atorvastatin 80 mg HS 6. Elevated blood pressure: Continue with Norvasc, losartan Increase hydralazine to 75 mg t.i.d. 7. Weakness in extremities: ? Physical deconditioning ICU stay Obtain CT cervical spine, lumbar spine Cannot do MRI due to body habitus here 8. DVT prophylaxis: On Xarelto 9. Code status: DNR 10. Disposition: Pending placement Time Spent With Patient Time: 38 minutes Subjective Date/time seen: 04/23/25 13:08 Interval history: Multiple complaints, weakness in upper and lower extremity Refusing to participate in PT/OT Review of Systems Review of Systems: All systems reviewed & are unremarkable except as noted in HPI and below Exam Narrative: General: Morbidly obese HEENT:? Pupils equal and reactive, sclera is clear Neck:? Supple Respiratory:? Clear to auscultation bilaterally, no wheezing/rhonchi/crackles Cardiac:? Regular rate rhythm, S1 and S2 appreciated. No murmur/gallop/regurgitation Abdomen:? 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 Alert and oriented to person, place, and situation. She has smack her lip. Right hand tremor. Skin:? Multiple healing wounds on the bilateral lower extremity Psych:? Mood appropriate Objective Data Vital Signs Vital Signs: Vital Signs - 24 hr 04/22/25 13:40 04/22/25 13:41 04/22/25 13:53 Temperature Pulse Rate 57 L 57 L 53 L Respiratory Rate 18 18 18 Blood Pressure Pulse Oximetry 96 Oxygen Delivery Room Air 04/22/25 16:00 04/22/25 20:12 04/22/25 20:25 Temperature 98 F Pulse Rate 54 L 65 61 Respiratory Rate 20 20 20 Blood Pressure 125/87 Pulse Oximetry 100 Oxygen Delivery 04/22/25 20:33 04/22/25 21:09 04/22/25 23:14 Temperature 97.7 F Pulse Rate 58 L 58 L 61 Respiratory Rate 20 23 H Blood Pressure 164/61 H Pulse Oximetry 99 97 Oxygen Delivery Autopap 04/23/25 00:00 04/23/25 01:29 04/23/25 04:32 Temperature 97.6 F 97.6 F Pulse Rate 54 L 55 L 46 L Respiratory Rate 20 20 Blood Pressure 142/55 H 151/57 H Pulse Oximetry 99 100 Oxygen Delivery 04/23/25 07:40 04/23/25 07:40 04/23/25 07:49 Temperature Pulse Rate 52 L 48 L Respiratory Rate 16 16 Blood Pressure Pulse Oximetry 97 Oxygen Delivery Room Air 04/23/25 09:05 04/23/25 09:06 04/23/25 09:09 Temperature Pulse Rate 47 L 48 L Respiratory Rate 12 Blood Pressure 162/56 H Pulse Oximetry 98 98 Oxygen Delivery Room Air Intake/Output Intake/Output: Intake & Output 04/20/25 04/21/25 04/22/25 04/23/25 23:59 23:59 23:59 23:59 Intake Total 350 1480 2802 240 Output Total 2325 2200 1200 Balance -1975 -720 1602 240 Meds/Results Medications: Active Medications Generic Name Dose Route Start Last Admin Trade Name Freq PRN Reason Stop Dose Admin Albuterol/Ipratropium 3 ml 04/15/25 07:30 04/23/25 07:38 Ipratropium 0.5 Mg/Albuterol Sulfate 2.5 Mg Ampul.Neb 3 Ml INHALATION 3 ml Q6HRT FARHANA Administration Amlodipine Besylate 10 mg 04/21/25 09:00 04/23/25 09:06 Amlodipine Besylate 10 Mg Tablet PO 10 mg DAILY FARHANA Administration Aspirin 81 mg 04/19/25 14:30 04/23/25 09:02 Aspirin 81 Mg Enteric Tablet PO 81 mg DAILY FARHANA Administration Atorvastatin Calcium 80 mg 04/19/25 14:30 04/23/25 09:02 Atorvastatin 40 Mg Tablet PO 80 mg DAILY FARHANA Administration Baclofen 10 mg 04/21/25 08:19 04/22/25 19:24 Baclofen 10 Mg Tablet PO 10 mg TID PRN Administration Muscle Spasm Calcium Carbonate 500 mg 04/21/25 09:00 04/23/25 09:02 Calcium Carbonate (Oscal) 500 Mg Tablet PO 500 mg QAM FARHANA Administration Clopidogrel Bisulfate 75 mg 04/19/25 14:30 04/23/25 09:02 Clopidogrel Bisulfate 75 Mg Tablet PO 75 mg DAILY FARHANA Administration Dextrose 12.5 gm 04/23/25 13:05 Dextrose 50% 25 Gm/50 Ml Syringe IV PUSH PRN PRN Hypoglycemia Protocol Doxycycline Hyclate 100 mg 04/21/25 12:00 04/23/25 09:02 Doxycycline Hyclate 100 Mg Tablet PO 04/24/25 21:01 100 mg Q12HR FARHANA Administration Duloxetine HCl 60 mg 04/19/25 14:30 04/23/25 09:02 Duloxetine Hcl 60 Mg Capsule. PO 60 mg QAM FARHANA Administration Ezetimibe 10 mg 04/19/25 14:30 04/23/25 09:02 Ezetimibe 10 Mg Tablet PO 10 mg DAILY FARHANA Administration Empagliflozin 25 mg 04/19/25 14:35 04/23/25 09:02 Empagliflozin 25 Mg Tablet PO 05/20/25 14:34 25 mg DAILY FARHANA Administration Gabapentin 300 mg 04/21/25 21:10 04/23/25 09:05 Gabapentin 300 Mg Capsule PO 300 mg 0900,1400,2100 FARHANA Administration Glucagon 1 mg 04/17/25 09:09 Glucagon For Inj 1 Mg Vial IM PRN PRN Hypoglycemia Protocol Glucagon 1 mg 04/23/25 13:05 Glucagon For Inj 1 Mg Vial IM PRN PRN Hypoglycemia Protocol Glucose 15 gm 04/17/25 09:09 Glucose Oral Gel 15 Gm Of Glucse In 37.5 Gm Tube PO PRN PRN Hypoglycemia Protocol Glucose 15 gm 04/23/25 13:05 Glucose Oral Gel 15 Gm Of Glucse In 37.5 Gm Tube PO PRN PRN Hypoglycemia Protocol Hydralazine HCl 10 mg 04/18/25 11:43 04/21/25 18:31 Hydralazine Hcl 20 Mg/Ml Vial IV PUSH 10 mg Q4H PRN Administration Blood Pressure - High Hydralazine HCl 50 mg 04/19/25 14:00 04/23/25 09:06 Hydralazine Hcl 50 Mg Tablet PO 50 mg 0900,1400,2100 FARHANA Administration Dextrose 1,000 mls @ 100 mls/hr 04/23/25 13:05 Dextrose 5% 1,000 Ml IVPB PRN PRN Hypoglycemia Protocol Insulin Aspart 7 units 04/23/25 17:00 Insulin Aspart (*Bkc) 100 Units/Ml 0.05 units/kg (7 units) SUB-Q TIDWM FARHANA Insulin Glargine 20 units 04/23/25 13:10 Insulin Glargine (*Bkc) 100 Units/Ml 0.15 units/kg (20 units) SUB-Q DAILY FARHANA Labetalol HCl 10 mg 04/20/25 11:43 Labetalol Hcl Inj 100 Mg/20 Ml Vial IV PUSH BID PRN Blood Pressure - High Lidocaine 1 patch 04/21/25 18:00 04/23/25 09:03 Lidocaine 5% Patch TRANSDERM Not Given DAILY FARHANA Losartan Potassium 100 mg 04/21/25 09:00 04/23/25 09:06 Losartan Potassium 100 Mg Tablet PO 100 mg DAILY FARHANA Administration Melatonin 5 mg 04/21/25 21:00 04/22/25 21:27 Melatonin 5 Mg Tablet PO 5 mg HS FARHANA Administration Pantoprazole Sodium 40 mg 04/24/25 09:00 Pantoprazole 40 Mg Tablet PO QAM FARHANA Quetiapine Fumarate 100 mg/ 150 mg 04/23/25 21:00 Quetiapine Fumarate 50 mg PO 04/23/25 21:01 HS FARHANA Quetiapine Fumarate 200 mg 04/24/25 21:00 Quetiapine Fumarate 100 Mg Tablet PO HS FARHANA Rivaroxaban 2.5 mg 04/19/25 21:00 04/23/25 09:02 Rivaroxaban 2.5 Mg Tablet PO 2.5 mg Q12H FARHANA Administration Senna/Docusate Sodium 2 tab 04/21/25 08:19 Senna/Docusate Sodium Tablet PO BID PRN Constipation Sodium Chloride 20 ml 04/15/25 02:07 04/20/25 06:24 Central Line Flush IV PUSH 20 ml PRN PRN Administration after blood draws Radiology Results: ITS Impressions Abdomen X-Ray 04/14/25 20:46 IMPRESSION: 1. Endotracheal tube and orogastric tube in expected positions. 2. Decreased left lung volume with elevation the left hemidiaphragm and patchy airspace opacities throughout the left lung which could represent atelectasis and/or pneumonia. 3. Pulmonary vascular congestion with increased interstitial pattern in the right perihilar region which could represent mild pulmonary edema and/or pneumonia. Head CT 04/15/25 08:50 IMPRESSION: 1. No acute intracranial abnormality. Chest X-Ray 04/20/25 10:15 Impression: 1: Bilateral interstitial infiltrates with consolidation in the left lung base. Findings compatible with edema with superimposed atelectasis/pneumonia. Modified Barium Swallow 04/22/25 11:21 IMPRESSION: Laryngeal penetration without aspiration with thin liquids which improved with chin tuck position and decreased bolus size. Please correlate with speech pathologist findings and specific feeding recommendations. Labs Labs: Laboratory Results - last 24 hr 04/18/25 04/23/25 04/23/25 04:56 00:48 04:40 WBC 6.8 RBC 3.46 L Hgb 10.0 L Hct 32.4 L MCV 93.6 MCH 28.9 MCHC 30.9 L RDW 14.8 H Plt Count 115 L MPV 10.2 Immature Gran % (Auto) 0.3 Neut % (Auto) 72.9 Lymph % (Auto) 15.1 L [place] % (Auto) 7.7 Eos % (Auto) 3.4 Baso % (Auto) 0.6 Lymph # (Auto) 1.02 [place] # (Auto) 0.5 Eos # (Auto) 0.2 Baso # (Auto) 0.0 Abs Immat Gran (auto) 0.02 Absolute Neuts (auto) 4.9 Absolute Nucleated RBC 0.000 Nucleated RBC % 0.0 Puncture Site Not Reportable O2 Delivery Device Ventilator O2 Liters/Min Not Reportable Minute Volume Not Reportable Vent Rate 18 Vent Mode Cmv Tidal Volume 450 PEEP 8 Peak Inspir Pressure Not Reportable Pressure Support Not Reportable POC Capillary Glucose 216 H 04/23/25 04/23/25 04:42 11:51 WBC RBC Hgb Hct MCV MCH MCHC RDW Plt Count MPV Immature Gran % (Auto) Neut % (Auto) Lymph % (Auto) [place] % (Auto) Eos % (Auto) Baso % (Auto) Lymph # (Auto) [place] # (Auto) Eos # (Auto) Baso # (Auto) Abs Immat Gran (auto) Absolute Neuts (auto) Absolute Nucleated RBC Nucleated RBC % Puncture Site O2 Delivery Device O2 Liters/Min Minute Volume Vent Rate Vent Mode Tidal Volume PEEP Peak Inspir Pressure Pressure Support POC Capillary Glucose 210 H 201 H Quality VTE Prophylaxis VTE prophylaxis: pharmacologic ordered
[2025-04-23] MEDS: ACETAMINOPHEN 325 MG TABLET 650 MG PO ×2 (14:15→20:14)
[2025-04-23] MEDS: INSULIN ASPART (*BKC) 100 UNITS/ML 7 UNITS SUB-Q (17:35)
[2025-04-23] MEDS: MELATONIN 5 MG TABLET PO (20:11)
[2025-04-23] MEDS: BACLOFEN 10 MG TABLET PO (20:15)
[2025-04-24] VITALS (17 sets, daily range): BP systolic 140–168; BP diastolic 49–64; PULSE 50–62; RESP 13–23; TEMP 36.2–36.5; O2SAT 97–100; BMI 11.0
[2025-04-24] MEDS: IPRATROPIUM 0.5 MG/ALBUTEROL SULFATE 2.5 MG AMPUL.NEB 3 ML INHALATION ×4 (01:15→20:07)
[2025-04-24 05:00] LABS: Hematocrit 31.9 % (37.0-47.0); Hemoglobin 9.6 g/dL (12.0-15.0); Immature Granulocyte Percent A 0.5 % (0-0.5); Immature Platelet Fraction Pct 2.8 % (0.9-11.2); Lymphocytes Absolute Auto 0.83 K/mm3 (0.9-3.2); Mean Corpuscular HGB Conc 30.1 g/dl (32-36); Mean Corpuscular Hemoglobin 28.4 pg (26-34); Mean Corpuscular Volume 94.4 fl (80-100); Nucleated Red Blood Cells Absolute Auto 0.000 K/mm3 (0.0-0.012); Nucleated Red Blood Cells Perc 0.0 % (0.0-0.2); Platelet Count Result 101 k/mm3 (150-375); Red Blood Count 3.38 M/mm3 (4.2-5.4); White Blood Count 5.8 K/mm3 (4.5-10.0)
[2025-04-24 05:11] LABS: Hemoglobin A1C 6.6 % (<5.7)
[2025-04-24 05:13] LABS: Anion Gap 6 mmol/L (4-12); Blood Urea Nitrogen 46 mg/dL (7-17); Calcium 9.0 mg/dL (8.4-10.2); Carbon Dioxide 23 mmol/L (22-30); Chloride 110 mmol/L (98-107); Estimated CRCL calculation 77 ml/min; Estimated Glomerular Filt Rate > 60; Glucose 207 mg/dL (65-110); Potassium 3.2 mmol/L (3.4-5.0); Sodium 139 mmol/L (137-145)
--- NOTE | 2025-04-24 08:12 | PCSTNOTE ---
04/24/25: Attempted to see patient with morning meal and tongue base retraction exercises. Unable to arouse still receiving CPAP. PHYSICAL EDUCATION SPECIALIST stated patient was up early and stated she was tired this AM. Will re-attempt later in day if able.
[2025-04-24] MEDS: EMPAGLIFLOZIN 25 MG TABLET PO (09:12)
[2025-04-24] MEDS: RIVAROXABAN 2.5 MG TABLET PO ×2 (09:12→20:28)
[2025-04-24] MEDS: DOXYCYCLINE HYCLATE 100 MG TABLET PO ×2 (09:12→20:28)
[2025-04-24] MEDS: DULoxetine HCL 60 MG CAPSULE.DR PO (09:12)
[2025-04-24] MEDS: EZETIMIBE 10 MG TABLET PO (09:12)
[2025-04-24] MEDS: ACETAMINOPHEN 325 MG TABLET 650 MG PO ×2 (09:12→20:27)
[2025-04-24] MEDS: CALCIUM CARBONATE (OSCAL) 500 MG TABLET PO (09:12)
[2025-04-24] MEDS: ATORVASTATIN 40 MG TABLET 80 MG PO (09:12)
[2025-04-24] MEDS: CLOPIDOGREL BISULFATE 75 MG TABLET PO (09:12)
[2025-04-24] MEDS: PANTOPRAZOLE 40 MG TABLET PO (09:12)
[2025-04-24] MEDS: ASPIRIN 81 MG ENTERIC TABLET PO (09:12)
[2025-04-24] MEDS: GABAPENTIN 300 MG CAPSULE PO ×2 (09:12→20:30)
[2025-04-24] MEDS: INSULIN GLARGINE (*BKC) 100 UNITS/ML 20 UNITS SUB-Q (09:13)
[2025-04-24] MEDS: INSULIN ASPART (*BKC) 100 UNITS/ML 7 UNITS SUB-Q ×3 (09:14→16:50)
[2025-04-24] MEDS: LOSARTAN POTASSIUM 100 MG TABLET PO (09:14)
[2025-04-24] MEDS: BACLOFEN 10 MG TABLET PO ×2 (09:17→20:27)
--- NOTE | 2025-04-24 12:58 | PM.IMPN ---
Progress Note: A&P Assessment and Plan (1) Suicide attempt: Code(s): T14.91XA - Suicide attempt, initial encounter Status: Acute (2) Intentional drug overdose: Code(s): T50.902A - Poisoning by unspecified drugs, medicaments and biological substances, intentional self-harm, initial encounter Status: Acute (3) Intentional overdose of calcium-channel ryne: Code(s): T46.1X2A - Poisoning by calcium-channel blockers, intentional self-harm, initial encounter Status: Acute (4) Bipolar 1 disorder, depressed, severe: Code(s): F31.4 - Bipolar disorder, current episode depressed, severe, without psychotic features Status: Acute (5) Polysubstance abuse: Code(s): F19.10 - Other psychoactive substance abuse, uncomplicated Status: Acute (6) Diabetes mellitus: Code(s): E11.9 - Type 2 diabetes mellitus without complications Status: Acute (7) Urinary retention: Code(s): R33.9 - Retention of urine, unspecified Status: Acute Plan 69-year-old female who presented after an intentional overdose of her morning medications, reportedly due to suicidal ideation (just over life, can't do it anymore). Family members called EMS when she told them she took 10 of each of her morning medications. 1. Intentional drug overdose: Patient with calcium channel ryne/amlodipine overdose causing severe hypotension, bradycardia. Poison Control was notified and following and recommended insulin infusion. Status post multiple doses of calcium chloride, calcium gluconate, epinephrine infusion, insulin infusion Crisis management signed contract with the patient and noted patient can discharge to SNF WIll follow up with Psych in week post discharge and outpatient CBT/DBT 2. Circulatory shock: Resolved 3. Respiratory failure: Resolved, currently on room air Requiring CPAP at night Possible aspiration pneumonia due to emesis in the ER upon arrival Was intubated,/extubated now Currently on doxycycline Might have a component of obstructive sleep apnea due to her body habitus Might benefit from outpatient sleep study 4. Type 2 diabetes mellitus: Switch to blood glucose checked t.i.d. a.c. and HS Will start on Lantus 20 units Mealtime 7 units insulin t.i.d. a.c. Adjust dose as needed 5.History of revascularization and stent placement Continue home does Xarelto 2.5 mg b.i.d. and Plavix 75 mg p.o. daily, aspirin 81 mg daily, atorvastatin 80 mg HS 6. Elevated blood pressure: Continue with Norvasc, losartan Increase hydralazine to 75 mg t.i.d. 7. Weakness in extremities: ? Physical deconditioning ICU stay Obtain CT cervical spine, lumbar spine Cannot do MRI due to body habitus here 8. DVT prophylaxis: On Xarelto 9. Code status: DNR 10. Disposition: Pending placement Subjective Date/time seen: 04/24/25 12:58 Interval history: Comfortable at bedside and awaiting placement Review of Systems Review of Systems: All systems reviewed & are unremarkable except as noted in HPI and below ROS unobtainable: Yes unobtainable due to endotracheal tube, unobtainable due to medical condition and unobtainable due to mental status Exam Narrative: General: Morbidly obese HEENT:? Pupils equal and reactive, sclera is clear Neck:? Supple Respiratory:? Clear to auscultation bilaterally, no wheezing/rhonchi/crackles Cardiac:? Regular rate rhythm, S1 and S2 appreciated. No murmur/gallop/regurgitation Abdomen:? 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 Alert and oriented to person, place, and situation. She has smack her lip. Right hand tremor. Skin:? Multiple healing wounds on the bilateral lower extremity Psych:? Mood appropriate Objective Data Vital Signs Vital Signs: Vital Signs - 24 hr 04/23/25 13:31 04/23/25 13:43 04/23/25 16:00 Temperature 97.8 F Pulse Rate 56 L 60 67 Respiratory Rate 16 16 19 Blood Pressure 146/40 H Pulse Oximetry 98 Oxygen Delivery 04/23/25 19:45 04/23/25 19:45 04/23/25 19:50 Temperature Pulse Rate 58 L 60 Respiratory Rate 14 14 Blood Pressure Pulse Oximetry 96 Oxygen Delivery Room Air 04/23/25 20:00 04/23/25 21:25 04/23/25 22:35 Temperature 97 F L Pulse Rate 57 L 62 Respiratory Rate 18 27 H Blood Pressure 165/44 H Pulse Oximetry 97 97 Oxygen Delivery Room Air Autopap 04/24/25 01:15 04/24/25 01:16 04/24/25 01:24 Temperature Pulse Rate 60 60 62 Respiratory Rate 20 17 20 Blood Pressure Pulse Oximetry 97 Oxygen Delivery Autopap 04/24/25 04:59 04/24/25 07:40 04/24/25 07:44 Temperature Pulse Rate 51 L 51 L 51 L Respiratory Rate 23 H 18 13 Blood Pressure Pulse Oximetry 100 99 Oxygen Delivery Autopap Autopap 04/24/25 07:50 04/24/25 08:00 04/24/25 09:15 Temperature 97.2 F L Pulse Rate 50 L 58 L Respiratory Rate 18 18 Blood Pressure 152/64 H Pulse Oximetry 100 99 Oxygen Delivery Room Air Intake/Output Intake/Output: Intake & Output 04/21/25 04/22/25 04/23/25 04/24/25 23:59 23:59 23:59 23:59 Intake Total 1480 2802 1060 930 Output Total 2200 1200 1850 1000 Balance -720 1602 -790 -70 Meds/Results Medications: Active Medications Generic Name Dose Route Start Last Admin Trade Name Freq PRN Reason Stop Dose Admin Acetaminophen 650 mg 04/23/25 14:09 04/24/25 09:12 Acetaminophen 325 Mg Tablet PO 650 mg Q4H PRN Administration Mild Pain (1-3) or Fever Albuterol/Ipratropium 3 ml 04/15/25 07:30 04/24/25 07:43 Ipratropium 0.5 Mg/Albuterol Sulfate 2.5 Mg Ampul.Neb 3 Ml INHALATION 3 ml Q6HRT FARHANA Administration Amlodipine Besylate 10 mg 04/21/25 09:00 04/24/25 09:14 Amlodipine Besylate 10 Mg Tablet PO 10 mg DAILY FARHANA Administration Aspirin 81 mg 04/19/25 14:30 04/24/25 09:12 Aspirin 81 Mg Enteric Tablet PO 81 mg DAILY FARHANA Administration Atorvastatin Calcium 80 mg 04/19/25 14:30 04/24/25 09:12 Atorvastatin 40 Mg Tablet PO 80 mg DAILY FARHANA Administration Baclofen 10 mg 04/21/25 08:19 04/24/25 09:17 Baclofen 10 Mg Tablet PO 10 mg TID PRN Administration Muscle Spasm Calcium Carbonate 500 mg 04/21/25 09:00 04/24/25 09:12 Calcium Carbonate (Oscal) 500 Mg Tablet PO 500 mg QAM FARHANA Administration Clopidogrel Bisulfate 75 mg 04/19/25 14:30 04/24/25 09:12 Clopidogrel Bisulfate 75 Mg Tablet PO 75 mg DAILY FARHANA Administration Dextrose 12.5 gm 04/23/25 13:05 Dextrose 50% 25 Gm/50 Ml Syringe IV PUSH PRN PRN Hypoglycemia Protocol Doxycycline Hyclate 100 mg 04/21/25 12:00 04/24/25 09:12 Doxycycline Hyclate 100 Mg Tablet PO 04/24/25 21:01 100 mg Q12HR FARHANA Administration Duloxetine HCl 60 mg 04/19/25 14:30 04/24/25 09:12 Duloxetine Hcl 60 Mg Capsule. PO 60 mg QAM FARHANA Administration Ezetimibe 10 mg 04/19/25 14:30 04/24/25 09:12 Ezetimibe 10 Mg Tablet PO 10 mg DAILY FARHANA Administration Empagliflozin 25 mg 04/19/25 14:35 04/24/25 09:12 Empagliflozin 25 Mg Tablet PO 05/20/25 14:34 25 mg DAILY FARHANA Administration Gabapentin 300 mg 04/21/25 21:10 04/24/25 09:12 Gabapentin 300 Mg Capsule PO 300 mg 0900,1400,2100 FARHANA Administration Glucagon 1 mg 04/23/25 13:05 Glucagon For Inj 1 Mg Vial IM PRN PRN Hypoglycemia Protocol Glucose 15 gm 04/23/25 13:05 Glucose Oral Gel 15 Gm Of Glucse In 37.5 Gm Tube PO PRN PRN Hypoglycemia Protocol Hydralazine HCl 10 mg 04/18/25 11:43 04/21/25 18:31 Hydralazine Hcl 20 Mg/Ml Vial IV PUSH 10 mg Q4H PRN Administration Blood Pressure - High Hydralazine HCl 50 mg 04/19/25 14:00 04/24/25 09:14 Hydralazine Hcl 50 Mg Tablet PO Not Given 0900,1400,2100 [facility] Dextrose 1,000 mls @ 100 mls/hr 04/23/25 13:05 Dextrose 5% 1,000 Ml IVPB PRN PRN Hypoglycemia Protocol Insulin Aspart 7 units 04/23/25 17:00 04/24/25 12:51 Insulin Aspart (*Bkc) 100 Units/Ml 0.05 units/kg (7 units) 7 units SUB-Q Administration TIDWM [facility] Insulin Glargine 20 units 04/23/25 13:10 04/24/25 09:13 Insulin Glargine (*Bkc) 100 Units/Ml 0.15 units/kg (20 units) 20 units SUB-Q Administration DAILY FARHANA Labetalol HCl 10 mg 04/20/25 11:43 Labetalol Hcl Inj 100 Mg/20 Ml Vial IV PUSH BID PRN Blood Pressure - High Lidocaine 1 patch 04/21/25 18:00 04/24/25 09:13 Lidocaine 5% Patch TRANSDERM Not Given DAILY FARHANA Losartan Potassium 100 mg 04/21/25 09:00 04/24/25 09:14 Losartan Potassium 100 Mg Tablet PO 100 mg DAILY FARHANA Administration Melatonin 5 mg 04/21/25 21:00 04/23/25 20:11 Melatonin 5 Mg Tablet PO 5 mg HS FARHANA Administration Pantoprazole Sodium 40 mg 04/24/25 09:00 04/24/25 09:12 Pantoprazole 40 Mg Tablet PO 40 mg QAM FARHANA Administration Quetiapine Fumarate 200 mg 04/24/25 21:00 Quetiapine Fumarate 100 Mg Tablet PO HS FARHANA Rivaroxaban 2.5 mg 04/19/25 21:00 04/24/25 09:12 Rivaroxaban 2.5 Mg Tablet PO 2.5 mg Q12H FARHANA Administration Senna/Docusate Sodium 2 tab 04/21/25 08:19 Senna/Docusate Sodium Tablet PO BID PRN Constipation Sodium Chloride 20 ml 04/15/25 02:07 04/20/25 06:24 Central Line Flush IV PUSH 20 ml PRN PRN Administration after blood draws Radiology Results: ITS Impressions Abdomen X-Ray 04/14/25 20:46 IMPRESSION: 1. Endotracheal tube and orogastric tube in expected positions. 2. Decreased left lung volume with elevation the left hemidiaphragm and patchy airspace opacities throughout the left lung which could represent atelectasis and/or pneumonia. 3. Pulmonary vascular congestion with increased interstitial pattern in the right perihilar region which could represent mild pulmonary edema and/or pneumonia. Head CT 04/15/25 08:50 IMPRESSION: 1. No acute intracranial abnormality. Chest X-Ray 04/20/25 10:15 Impression: 1: Bilateral interstitial infiltrates with consolidation in the left lung base. Findings compatible with edema with superimposed atelectasis/pneumonia. Modified Barium Swallow 04/22/25 11:21 IMPRESSION: Laryngeal penetration without aspiration with thin liquids which improved with chin tuck position and decreased bolus size. Please correlate with speech pathologist findings and specific feeding recommendations. Cervical Spine CT 04/24/25 08:34 IMPRESSION: No evidence for cervical spine fracture or traumatic subluxation. Multilevel degenerative changes of the cervical spine. Labs Labs: Laboratory Results - last 24 hr 04/23/25 04/23/25 04/24/25 17:01 20:59 04:23 WBC 5.8 RBC 3.38 L Hgb 9.6 L Hct 31.9 L MCV 94.4 MCH 28.4 MCHC 30.1 L RDW 14.7 H Plt Count 101 L MPV 10.6 H Immature Gran % (Auto) 0.5 Neut % (Auto) 73.5 H Lymph % (Auto) 14.3 L [place] % (Auto) 8.3 Eos % (Auto) 3.1 Baso % (Auto) 0.3 Lymph # (Auto) 0.83 L [place] # (Auto) 0.5 Eos # (Auto) 0.2 Baso # (Auto) 0.0 Abs Immat Gran (auto) 0.03 Absolute Neuts (auto) 4.3 Absolute Nucleated RBC 0.000 Nucleated RBC % 0.0 % Immature Plt Fraction 2.8 Sodium 139 Potassium 3.2 L Chloride 110 H Carbon Dioxide 23 Anion Gap 6 BUN 46 H Creatinine 0.88 Estim Creat Clear Calc 77 Estimated GFR > 60 Glucose 207 H POC Capillary Glucose 233 H 220 H Hemoglobin A1c 6.6 H Calcium 9.0 04/24/25 04/24/25 07:45 11:40 WBC RBC Hgb Hct MCV MCH MCHC RDW Plt Count MPV Immature Gran % (Auto) Neut % (Auto) Lymph % (Auto) [place] % (Auto) Eos % (Auto) Baso % (Auto) Lymph # (Auto) [place] # (Auto) Eos # (Auto) Baso # (Auto) Abs Immat Gran (auto) Absolute Neuts (auto) Absolute Nucleated RBC Nucleated RBC % % Immature Plt Fraction Sodium Potassium Chloride Carbon Dioxide Anion Gap BUN Creatinine Estim Creat Clear Calc Estimated GFR Glucose POC Capillary Glucose 177 H 221 H Hemoglobin A1c Calcium Quality VTE Prophylaxis VTE prophylaxis: pharmacologic ordered
[2025-04-24] MEDS: MELATONIN 5 MG TABLET PO (20:28)
[2025-04-25] VITALS (15 sets, daily range): BP systolic 146–181; BP diastolic 44–50; PULSE 52–79; RESP 15–20; TEMP 36.6–36.9; O2SAT 68–98
[2025-04-25] MEDS: IPRATROPIUM 0.5 MG/ALBUTEROL SULFATE 2.5 MG AMPUL.NEB 3 ML INHALATION ×4 (02:01→20:30)
[2025-04-25] MEDS: PANTOPRAZOLE 40 MG TABLET PO (08:44)
[2025-04-25] MEDS: CLOPIDOGREL BISULFATE 75 MG TABLET PO (08:44)
[2025-04-25] MEDS: LOSARTAN POTASSIUM 100 MG TABLET PO (08:45)
[2025-04-25] MEDS: EZETIMIBE 10 MG TABLET PO (08:45)
[2025-04-25] MEDS: EMPAGLIFLOZIN 25 MG TABLET PO (08:45)
[2025-04-25] MEDS: RIVAROXABAN 2.5 MG TABLET PO ×2 (08:45→20:12)
[2025-04-25] MEDS: CALCIUM CARBONATE (OSCAL) 500 MG TABLET PO (08:45)
[2025-04-25] MEDS: DULoxetine HCL 60 MG CAPSULE.DR PO (08:45)
[2025-04-25] MEDS: ATORVASTATIN 40 MG TABLET 80 MG PO (08:45)
[2025-04-25] MEDS: ASPIRIN 81 MG ENTERIC TABLET PO (08:45)
[2025-04-25] MEDS: GABAPENTIN 300 MG CAPSULE PO ×3 (09:00→20:15)
[2025-04-25] MEDS: BACLOFEN 10 MG TABLET PO ×3 (09:00→20:13)
[2025-04-25] MEDS: LIDOCAINE 5% PATCH 1 PATCH TRANSDERM (09:01)
--- NOTE | 2025-04-25 11:26 | PCSTNOTE ---
Please refer to the Bedside Swallow Evaluation in the EMR. Please note, silent aspiration cannot be ruled out at bedside.
--- NOTE | 2025-04-25 11:50 | PM.IMPN ---
Progress Note: A&P Assessment and Plan (1) Suicide attempt: Code(s): T14.91XA - Suicide attempt, initial encounter Status: Acute (2) Intentional drug overdose: Code(s): T50.902A - Poisoning by unspecified drugs, medicaments and biological substances, intentional self-harm, initial encounter Status: Acute (3) Intentional overdose of calcium-channel ryne: Code(s): T46.1X2A - Poisoning by calcium-channel blockers, intentional self-harm, initial encounter Status: Acute (4) Bipolar 1 disorder, depressed, severe: Code(s): F31.4 - Bipolar disorder, current episode depressed, severe, without psychotic features Status: Acute (5) Polysubstance abuse: Code(s): F19.10 - Other psychoactive substance abuse, uncomplicated Status: Acute (6) Diabetes mellitus: Code(s): E11.9 - Type 2 diabetes mellitus without complications Status: Acute (7) Urinary retention: Code(s): R33.9 - Retention of urine, unspecified Status: Acute Plan 69-year-old female who presented after an intentional overdose of her morning medications, reportedly due to suicidal ideation (just over life, can't do it anymore). Family members called EMS when she told them she took 10 of each of her morning medications. 1. Intentional drug overdose: Patient with calcium channel ryne/amlodipine overdose causing severe hypotension, bradycardia. Poison Control was notified and following and recommended insulin infusion. Status post multiple doses of calcium chloride, calcium gluconate, epinephrine infusion, insulin infusion Crisis management signed contract with the patient and noted patient can discharge to SNF WIll follow up with Psych in week post discharge and outpatient CBT/DBT 2. Circulatory shock: Resolved 3. Respiratory failure: Resolved, currently on room air Requiring CPAP at night Possible aspiration pneumonia due to emesis in the ER upon arrival Was intubated,/extubated now Currently on doxycycline Might have a component of obstructive sleep apnea due to her body habitus Might benefit from outpatient sleep study 4. Type 2 diabetes mellitus: Switch to blood glucose checked t.i.d. a.c. and HS Will start on Lantus 20 units Mealtime 7 units insulin t.i.d. a.c. Adjust dose as needed 5.History of revascularization and stent placement Continue home does Xarelto 2.5 mg b.i.d. and Plavix 75 mg p.o. daily, aspirin 81 mg daily, atorvastatin 80 mg HS 6. Elevated blood pressure: Continue with Norvasc, losartan Increase hydralazine to 75 mg t.i.d. 7. Weakness in extremities: ? Physical deconditioning ICU stay Obtain CT cervical spine, lumbar spine Cannot do MRI due to body habitus here 8. DVT prophylaxis: On Xarelto 9. Code status: DNR 10. Disposition: Pending placement Subjective Date/time seen: 04/25/25 11:50 Interval history: Comfortable at bedside and awaiting placement Review of Systems Review of Systems: All systems reviewed & are unremarkable except as noted in HPI and below ROS unobtainable: Yes unobtainable due to endotracheal tube, unobtainable due to medical condition and unobtainable due to mental status Exam Narrative: General: Morbidly obese HEENT:? Pupils equal and reactive, sclera is clear Neck:? Supple Respiratory:? Clear to auscultation bilaterally, no wheezing/rhonchi/crackles Cardiac:? Regular rate rhythm, S1 and S2 appreciated. No murmur/gallop/regurgitation Abdomen:? 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 Alert and oriented to person, place, and situation. She has smack her lip. Right hand tremor. Skin:? Multiple healing wounds on the bilateral lower extremity Psych:? Mood appropriate Objective Data Vital Signs Vital Signs: Vital Signs - 24 hr 04/24/25 13:35 04/24/25 13:42 04/24/25 16:00 Temperature 97.5 F L Pulse Rate 53 L 55 L 57 L Respiratory Rate 19 19 18 Blood Pressure 140/49 L Pulse Oximetry 97 Oxygen Delivery 04/24/25 20:00 04/24/25 20:09 04/24/25 20:10 Temperature Pulse Rate 55 L Respiratory Rate 18 Blood Pressure Pulse Oximetry 97 Oxygen Delivery Room Air Room Air 04/24/25 20:15 04/24/25 20:26 04/24/25 21:30 Temperature 97.7 F Pulse Rate 56 L 60 55 L Respiratory Rate 18 20 18 Blood Pressure 168/53 H Pulse Oximetry 98 97 Oxygen Delivery Autopap 04/25/25 02:04 04/25/25 02:04 04/25/25 02:10 Temperature Pulse Rate 52 L 52 L 54 L Respiratory Rate 18 18 18 Blood Pressure Pulse Oximetry 97 Oxygen Delivery Autopap 04/25/25 06:07 04/25/25 06:10 04/25/25 07:50 Temperature 97.9 F Pulse Rate 52 L 52 L 58 L Respiratory Rate 16 15 18 Blood Pressure 146/49 H Pulse Oximetry 98 98 Oxygen Delivery Autopap 04/25/25 08:00 04/25/25 08:04 04/25/25 08:49 Temperature Pulse Rate 58 L Respiratory Rate 18 Blood Pressure Pulse Oximetry 97 Oxygen Delivery Room Air Room Air 04/25/25 08:55 Temperature Pulse Rate 65 Respiratory Rate Blood Pressure 146/50 H Pulse Oximetry 98 Oxygen Delivery Intake/Output Intake/Output: Intake & Output 04/22/25 04/23/25 04/24/25 04/25/25 23:59 23:59 23:59 23:59 Intake Total 2802 1060 2850 450 Output Total 1200 1850 2525 1500 Balance 1602 -790 325 -1050 Meds/Results Medications: Active Medications Generic Name Dose Route Start Last Admin Trade Name Freq PRN Reason Stop Dose Admin Acetaminophen 650 mg 04/23/25 14:09 04/24/25 20:27 Acetaminophen 325 Mg Tablet PO 650 mg Q4H PRN Administration Mild Pain (1-3) or Fever Albuterol/Ipratropium 3 ml 04/15/25 07:30 04/25/25 08:03 Ipratropium 0.5 Mg/Albuterol Sulfate 2.5 Mg Ampul.Neb 3 Ml INHALATION 3 ml Q6HRT FARHANA Administration Amlodipine Besylate 10 mg 04/21/25 09:00 04/25/25 08:44 Amlodipine Besylate 10 Mg Tablet PO 10 mg DAILY FARHANA Administration Aspirin 81 mg 04/19/25 14:30 04/25/25 08:45 Aspirin 81 Mg Enteric Tablet PO 81 mg DAILY FARHANA Administration Atorvastatin Calcium 80 mg 04/19/25 14:30 04/25/25 08:45 Atorvastatin 40 Mg Tablet PO 80 mg DAILY FARHANA Administration Baclofen 10 mg 04/21/25 08:19 04/25/25 09:00 Baclofen 10 Mg Tablet PO 10 mg TID PRN Administration Muscle Spasm Calcium Carbonate 500 mg 04/21/25 09:00 04/25/25 08:45 Calcium Carbonate (Oscal) 500 Mg Tablet PO 500 mg QAM FARHANA Administration Clopidogrel Bisulfate 75 mg 04/19/25 14:30 04/25/25 08:44 Clopidogrel Bisulfate 75 Mg Tablet PO 75 mg DAILY FARHANA Administration Dextrose 12.5 gm 04/23/25 13:05 Dextrose 50% 25 Gm/50 Ml Syringe IV PUSH PRN PRN Hypoglycemia Protocol Duloxetine HCl 60 mg 04/19/25 14:30 04/25/25 08:45 Duloxetine Hcl 60 Mg Capsule.Dr PO 60 mg QAM FARHANA Administration Ezetimibe 10 mg 04/19/25 14:30 04/25/25 08:45 Ezetimibe 10 Mg Tablet PO 10 mg DAILY FARHANA Administration Empagliflozin 25 mg 04/19/25 14:35 04/25/25 08:45 Empagliflozin 25 Mg Tablet PO 05/20/25 14:34 25 mg DAILY FARHANA Administration Gabapentin 300 mg 04/21/25 21:10 04/25/25 09:00 Gabapentin 300 Mg Capsule PO 300 mg 0900,1400,2100 FARHANA Administration Glucagon 1 mg 04/23/25 13:05 Glucagon For Inj 1 Mg Vial IM PRN PRN Hypoglycemia Protocol Glucose 15 gm 04/23/25 13:05 Glucose Oral Gel 15 Gm Of Glucse In 37.5 Gm Tube PO PRN PRN Hypoglycemia Protocol Hydralazine HCl 10 mg 04/18/25 11:43 04/21/25 18:31 Hydralazine Hcl 20 Mg/Ml Vial IV PUSH 10 mg Q4H PRN Administration Blood Pressure - High Hydralazine HCl 50 mg 04/19/25 14:00 04/25/25 09:00 Hydralazine Hcl 50 Mg Tablet PO 50 mg 0900,1400,2100 FARHANA Administration Dextrose 1,000 mls @ 100 mls/hr 04/23/25 13:05 Dextrose 5% 1,000 Ml IVPB PRN PRN Hypoglycemia Protocol Insulin Aspart 7 units 04/23/25 17:00 04/25/25 09:00 Insulin Aspart (*Bkc) 100 Units/Ml 0.05 units/kg (7 units) Not Given SUB-Q TIDWM FARHANA Insulin Glargine 20 units 04/23/25 13:10 04/24/25 09:13 Insulin Glargine (*Bkc) 100 Units/Ml 0.15 units/kg (20 units) 20 units SUB-Q Administration DAILY FARHANA Labetalol HCl 10 mg 04/20/25 11:43 Labetalol Hcl Inj 100 Mg/20 Ml Vial IV PUSH BID PRN Blood Pressure - High Lidocaine 1 patch 04/21/25 18:00 04/25/25 09:01 Lidocaine 5% Patch TRANSDERM 1 patch DAILY FARHANA Administration Losartan Potassium 100 mg 04/21/25 09:00 04/25/25 08:45 Losartan Potassium 100 Mg Tablet PO 100 mg DAILY FARHANA Administration Melatonin 5 mg 04/21/25 21:00 04/24/25 20:28 Melatonin 5 Mg Tablet PO 5 mg HS FARHANA Administration Pantoprazole Sodium 40 mg 04/24/25 09:00 04/25/25 08:44 Pantoprazole 40 Mg Tablet PO 40 mg QAM FARHANA Administration Quetiapine Fumarate 200 mg 04/24/25 21:00 04/24/25 20:28 Quetiapine Fumarate 100 Mg Tablet PO 200 mg HS FARHANA Administration Rivaroxaban 2.5 mg 04/19/25 21:00 04/25/25 08:45 Rivaroxaban 2.5 Mg Tablet PO 2.5 mg Q12H FARHANA Administration Senna/Docusate Sodium 2 tab 04/21/25 08:19 Senna/Docusate Sodium Tablet PO BID PRN Constipation Sodium Chloride 20 ml 04/15/25 02:07 04/20/25 06:24 Central Line Flush IV PUSH 20 ml PRN PRN Administration after blood draws Radiology Results: ITS Impressions Abdomen X-Ray 04/14/25 20:46 IMPRESSION: 1. Endotracheal tube and orogastric tube in expected positions. 2. Decreased left lung volume with elevation the left hemidiaphragm and patchy airspace opacities throughout the left lung which could represent atelectasis and/or pneumonia. 3. Pulmonary vascular congestion with increased interstitial pattern in the right perihilar region which could represent mild pulmonary edema and/or pneumonia. Head CT 04/15/25 08:50 IMPRESSION: 1. No acute intracranial abnormality. Modified Barium Swallow 04/22/25 11:21 IMPRESSION: Laryngeal penetration without aspiration with thin liquids which improved with chin tuck position and decreased bolus size. Please correlate with speech pathologist findings and specific feeding recommendations. Cervical Spine CT 04/24/25 08:34 IMPRESSION: No evidence for cervical spine fracture or traumatic subluxation. Multilevel degenerative changes of the cervical spine. Lumbar Spine CT 04/24/25 14:05 IMPRESSION: 1. Severe lower thoracic and lumbar spondylosis with multilevel central canal and bilateral neural foraminal narrowing. Chest X-Ray 04/25/25 07:37 IMPRESSION: 1. Chronic elevation the left hemidiaphragm with persistent left basilar opacities opacities and favor atelectasis over pneumonia. Labs Labs: Laboratory Results - last 24 hr 04/24/25 04/24/25 04/25/25 16:45 20:23 07:57 POC Capillary Glucose 205 H 210 H 219 H Quality VTE Prophylaxis VTE prophylaxis: pharmacologic ordered
[2025-04-25] MEDS: INSULIN ASPART (*BKC) 100 UNITS/ML 7 UNITS SUB-Q ×2 (12:21→17:33)
[2025-04-25] MEDS: INSULIN GLARGINE (*BKC) 100 UNITS/ML 20 UNITS SUB-Q (12:22)
--- NOTE | 2025-04-25 13:37 | PCSTNOTE ---
Patient had been on treatment list 2-3x/week however she had a status change 04/25 that involved possible aspiration on water with coughing noted for several hours later on thin liquids. RN assessed mildly thick liquids and coughing persisted. Therapist assessed moderately thick liquid per spoon and no coughing/aspiration was noted. Therapy was increased to 3-5x weekly in order to assess patient's swallowing in the next [address] Deras in agreement and JES Jimenez, was in agreement and voiced understanding.
[2025-04-25] MEDS: ACETAMINOPHEN 325 MG TABLET 650 MG PO (20:12)
[2025-04-25] MEDS: MELATONIN 5 MG TABLET PO (20:13)
[2025-04-26] VITALS (12 sets, daily range): BP systolic 137–168; BP diastolic 45–55; PULSE 62–72; RESP 18–20; TEMP 36.4–36.6; O2SAT 91–100; BMI 10.0
[2025-04-26] MEDS: IPRATROPIUM 0.5 MG/ALBUTEROL SULFATE 2.5 MG AMPUL.NEB 3 ML INHALATION ×4 (02:14→20:26)
[2025-04-26] MEDS: CLOPIDOGREL BISULFATE 75 MG TABLET PO (09:02)
[2025-04-26] MEDS: ASPIRIN 81 MG ENTERIC TABLET PO (09:02)
[2025-04-26] MEDS: CALCIUM CARBONATE (OSCAL) 500 MG TABLET PO (09:02)
[2025-04-26] MEDS: DULoxetine HCL 60 MG CAPSULE.DR PO (09:02)
[2025-04-26] MEDS: EMPAGLIFLOZIN 25 MG TABLET PO (09:02)
[2025-04-26] MEDS: ATORVASTATIN 40 MG TABLET 80 MG PO (09:02)
[2025-04-26] MEDS: EZETIMIBE 10 MG TABLET PO (09:03)
[2025-04-26] MEDS: INSULIN ASPART (*BKC) 100 UNITS/ML 7 UNITS SUB-Q ×3 (09:03→16:58)
[2025-04-26] MEDS: PANTOPRAZOLE 40 MG TABLET PO (09:03)
[2025-04-26] MEDS: RIVAROXABAN 2.5 MG TABLET PO ×2 (09:03→21:15)
[2025-04-26] MEDS: BACLOFEN 10 MG TABLET PO ×2 (09:03→14:12)
[2025-04-26] MEDS: LIDOCAINE 5% PATCH 1 PATCH TRANSDERM (09:03)
[2025-04-26] MEDS: LOSARTAN POTASSIUM 100 MG TABLET PO (09:03)
[2025-04-26] MEDS: GABAPENTIN 300 MG CAPSULE PO ×3 (09:03→21:17)
[2025-04-26] MEDS: INSULIN GLARGINE (*BKC) 100 UNITS/ML 20 UNITS SUB-Q (09:06)
--- NOTE | 2025-04-26 11:39 | P.PNIM_ITS ---
Progress Note: A&P Assessment and Plan (1) Suicide attempt: Code(s): T14.91XA - Suicide attempt, initial encounter Status: Acute (2) Intentional drug overdose: Code(s): T50.902A - Poisoning by unspecified drugs, medicaments and biological substances, intentional self-harm, initial encounter Status: Acute (3) Intentional overdose of calcium-channel ryne: Code(s): T46.1X2A - Poisoning by calcium-channel blockers, intentional self-harm, initial encounter Status: Acute (4) Bipolar 1 disorder, depressed, severe: Code(s): F31.4 - Bipolar disorder, current episode depressed, severe, without psychotic features Status: Acute (5) Polysubstance abuse: Code(s): F19.10 - Other psychoactive substance abuse, uncomplicated Status: Acute (6) Diabetes mellitus: Code(s): E11.9 - Type 2 diabetes mellitus without complications Status: Acute (7) Urinary retention: Code(s): R33.9 - Retention of urine, unspecified Status: Acute Plan 69-year-old female who presented after an intentional overdose of her morning medications, reportedly due to suicidal ideation (just over life, can't do it anymore). Family members called EMS when she told them she took 10 of each of her morning medications. 1. Intentional drug overdose: Patient with calcium channel ryne/amlodipine overdose causing severe hypotension, bradycardia. Poison Control was notified and following and recommended insulin infusion. Status post multiple doses of calcium chloride, calcium gluconate, epinephrine infusion, insulin infusion Crisis management signed contract with the patient and noted patient can discharge to SNF WIll follow up with Psych in week post discharge and outpatient CBT/DBT 2. Circulatory shock: Resolved 3. Respiratory failure: Resolved, currently on room air Requiring CPAP at night Possible aspiration pneumonia due to emesis in the ER upon arrival Was intubated,/extubated now Currently on doxycycline Might have a component of obstructive sleep apnea due to her body habitus Might benefit from outpatient sleep study 4. Type 2 diabetes mellitus: Switch to blood glucose checked t.i.d. a.c. and HS Will start on Lantus 20 units Mealtime 7 units insulin t.i.d. a.c. Adjust dose as needed 5.History of revascularization and stent placement Continue home does Xarelto 2.5 mg b.i.d. and Plavix 75 mg p.o. daily, aspirin 81 mg daily, atorvastatin 80 mg HS 6. Elevated blood pressure: Continue with Norvasc, losartan Increase hydralazine to 75 mg t.i.d. 7. Weakness in extremities: ? Physical deconditioning ICU stay Obtain CT cervical spine, lumbar spine Cannot do MRI due to body habitus here Urinary retention Patient failed voiding trial Started on Tamsulosin and urology consulted DVT prophylaxis: On Xarelto Code status: DNR Disposition: Pending placement Subjective Date/time seen: 04/26/25 11:39 Interval history: Comfortable at bedside and awaiting placement Patient failed voiding trial Review of Systems Review of Systems: All systems reviewed & are unremarkable except as noted in HPI and below ROS unobtainable: Yes unobtainable due to endotracheal tube, unobtainable due to medical condition and unobtainable due to mental status Exam Narrative: General: Morbidly obese HEENT:? Pupils equal and reactive, sclera is clear Neck:? Supple Respiratory:? Clear to auscultation bilaterally, no wheezing/rhonchi/crackles Cardiac:? Regular rate rhythm, S1 and S2 appreciated. No murmur/gallop/regurgitation Abdomen:? 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 Alert and oriented to person, place, and situation. She has smack her lip. Right hand tremor. Skin:? Multiple healing wounds on the bilateral lower extremity Psych:? Mood appropriate Objective Data Vital Signs Vital Signs: Vital Signs - 24 hr 04/25/25 13:49 04/25/25 14:42 04/25/25 16:00 Temperature 98.4 F Pulse Rate 68 Respiratory Rate 18 20 Blood Pressure 169/50 H 181/44 H Pulse Oximetry 68 L Oxygen Delivery Fraction of Inspired Oxygen 04/25/25 19:45 04/25/25 20:00 04/25/25 20:30 Temperature 97.9 F Pulse Rate 79 78 Respiratory Rate 20 18 Blood Pressure 172/48 H Pulse Oximetry 92 Oxygen Delivery Room Air Fraction of Inspired Oxygen 04/25/25 20:34 04/25/25 20:37 04/26/25 02:14 Temperature Pulse Rate 71 65 Respiratory Rate 18 18 Blood Pressure Pulse Oximetry 92 Oxygen Delivery Room Air Fraction of Inspired Oxygen 04/26/25 02:23 04/26/25 03:28 04/26/25 08:07 Temperature 97.6 F Pulse Rate 63 65 69 Respiratory Rate 18 20 18 Blood Pressure 137/48 L Pulse Oximetry 94 91 Oxygen Delivery Room Air Fraction of Inspired Oxygen 21 04/26/25 08:07 04/26/25 09:00 04/26/25 09:20 Temperature Pulse Rate 69 65 Respiratory Rate 18 Blood Pressure 153/45 H Pulse Oximetry Oxygen Delivery Room Air Fraction of Inspired Oxygen Intake/Output Intake/Output: Intake & Output 04/23/25 04/24/25 04/25/25 04/26/25 23:59 23:59 23:59 23:59 Intake Total 1060 2850 2090 480 Output Total 1850 2525 2700 700 Balance -790 325 -610 -220 Meds/Results Medications: Active Medications Generic Name Dose Route Start Last Admin Trade Name Freq PRN Reason Stop Dose Admin Acetaminophen 650 mg 04/23/25 14:09 04/25/25 20:12 Acetaminophen 325 Mg Tablet PO 650 mg Q4H PRN Administration Mild Pain (1-3) or Fever Albuterol/Ipratropium 3 ml 04/15/25 07:30 04/26/25 08:07 Ipratropium 0.5 Mg/Albuterol Sulfate 2.5 Mg Ampul.Neb 3 Ml INHALATION 3 ml Q6HRT FARHANA Administration Amlodipine Besylate 10 mg 04/21/25 09:00 04/26/25 09:02 Amlodipine Besylate 10 Mg Tablet PO 10 mg DAILY FARHANA Administration Aspirin 81 mg 04/19/25 14:30 04/26/25 09:02 Aspirin 81 Mg Enteric Tablet PO 81 mg DAILY FARHANA Administration Atorvastatin Calcium 80 mg 04/19/25 14:30 04/26/25 09:02 Atorvastatin 40 Mg Tablet PO 80 mg DAILY FARHANA Administration Baclofen 10 mg 04/21/25 08:19 04/26/25 09:03 Baclofen 10 Mg Tablet PO 10 mg TID PRN Administration Muscle Spasm Calcium Carbonate 500 mg 04/21/25 09:00 04/26/25 09:02 Calcium Carbonate (Oscal) 500 Mg Tablet PO 500 mg QAM FARHANA Administration Clopidogrel Bisulfate 75 mg 04/19/25 14:30 04/26/25 09:02 Clopidogrel Bisulfate 75 Mg Tablet PO 75 mg DAILY FARHANA Administration Dextrose 12.5 gm 04/23/25 13:05 Dextrose 50% 25 Gm/50 Ml Syringe IV PUSH PRN PRN Hypoglycemia Protocol Duloxetine HCl 60 mg 04/19/25 14:30 04/26/25 09:02 Duloxetine Hcl 60 Mg Capsule. PO 60 mg QAM FARHANA Administration Ezetimibe 10 mg 04/19/25 14:30 04/26/25 09:03 Ezetimibe 10 Mg Tablet PO 10 mg DAILY FARHANA Administration Empagliflozin 25 mg 04/19/25 14:35 04/26/25 09:02 Empagliflozin 25 Mg Tablet PO 05/20/25 14:34 25 mg DAILY FARHANA Administration Gabapentin 300 mg 04/21/25 21:10 04/26/25 09:03 Gabapentin 300 Mg Capsule PO 300 mg 0900,1400,2100 FARHANA Administration Glucagon 1 mg 04/23/25 13:05 Glucagon For Inj 1 Mg Vial IM PRN PRN Hypoglycemia Protocol Glucose 15 gm 04/23/25 13:05 Glucose Oral Gel 15 Gm Of Glucse In 37.5 Gm Tube PO PRN PRN Hypoglycemia Protocol Hydralazine HCl 10 mg 04/18/25 11:43 04/21/25 18:31 Hydralazine Hcl 20 Mg/Ml Vial IV PUSH 10 mg Q4H PRN Administration Blood Pressure - High Hydralazine HCl 50 mg 04/19/25 14:00 04/26/25 09:03 Hydralazine Hcl 50 Mg Tablet PO 50 mg 0900,1400,2100 FARHANA Administration Dextrose 1,000 mls @ 100 mls/hr 04/23/25 13:05 Dextrose 5% 1,000 Ml IVPB PRN PRN Hypoglycemia Protocol Insulin Aspart 7 units 04/23/25 17:00 04/26/25 09:03 Insulin Aspart (*Bkc) 100 Units/Ml 0.05 units/kg (7 units) 7 units SUB-Q Administration TIDWM [facility] Insulin Glargine 20 units 04/23/25 13:10 04/26/25 09:06 Insulin Glargine (*Bkc) 100 Units/Ml 0.15 units/kg (20 units) 20 units SUB-Q Administration DAILY [facility] Labetalol HCl 10 mg 04/20/25 11:43 Labetalol Hcl Inj 100 Mg/20 Ml Vial IV PUSH BID PRN Blood Pressure - High Lidocaine 1 patch 04/21/25 18:00 04/26/25 09:03 Lidocaine 5% Patch TRANSDERM 1 patch DAILY FARHANA Administration Losartan Potassium 100 mg 04/21/25 09:00 04/26/25 09:03 Losartan Potassium 100 Mg Tablet PO 100 mg DAILY FARHANA Administration Melatonin 5 mg 04/21/25 21:00 04/25/25 20:13 Melatonin 5 Mg Tablet PO 5 mg HS FARHANA Administration Pantoprazole Sodium 40 mg 04/24/25 09:00 04/26/25 09:03 Pantoprazole 40 Mg Tablet PO 40 mg QAM FARHANA Administration Quetiapine Fumarate 200 mg 04/24/25 21:00 04/25/25 20:12 Quetiapine Fumarate 100 Mg Tablet PO 200 mg HS FARHANA Administration Rivaroxaban 2.5 mg 04/19/25 21:00 04/26/25 09:03 Rivaroxaban 2.5 Mg Tablet PO 2.5 mg Q12H FARHANA Administration Senna/Docusate Sodium 2 tab 04/21/25 08:19 Senna/Docusate Sodium Tablet PO BID PRN Constipation Sodium Chloride 20 ml 04/15/25 02:07 04/20/25 06:24 Central Line Flush IV PUSH 20 ml PRN PRN Administration after blood draws Radiology Results: ITS Impressions Abdomen X-Ray 04/14/25 20:46 IMPRESSION: 1. Endotracheal tube and orogastric tube in expected positions. 2. Decreased left lung volume with elevation the left hemidiaphragm and patchy airspace opacities throughout the left lung which could represent atelectasis and/or pneumonia. 3. Pulmonary vascular congestion with increased interstitial pattern in the right perihilar region which could represent mild pulmonary edema and/or pneumonia. Head CT 04/15/25 08:50 IMPRESSION: 1. No acute intracranial abnormality. Modified Barium Swallow 04/22/25 11:21 IMPRESSION: Laryngeal penetration without aspiration with thin liquids which improved with chin tuck position and decreased bolus size. Please correlate with speech pathologist findings and specific feeding recommendations. Cervical Spine CT 04/24/25 08:34 IMPRESSION: No evidence for cervical spine fracture or traumatic subluxation. Multilevel degenerative changes of the cervical spine. Lumbar Spine CT 04/24/25 14:05 IMPRESSION: 1. Severe lower thoracic and lumbar spondylosis with multilevel central canal an d bilateral neural foraminal narrowing. Chest X-Ray 04/25/25 07:37 IMPRESSION: 1. Chronic elevation the left hemidiaphragm with persistent left basilar opacities opacities and favor atelectasis over pneumonia. Labs Labs: Laboratory Results - last 24 hr 04/25/25 04/25/25 04/25/25 11:52 17:22 19:55 POC Capillary Glucose 171 H 192 H 229 H Quality VTE Prophylaxis VTE prophylaxis: pharmacologic ordered
[2025-04-26] MEDS: TAMSULOSIN HCL 0.4 MG CAPSULE PO (12:11)
[2025-04-26] MEDS: MELATONIN 5 MG TABLET PO (21:15)
--- NOTE | 2025-04-26 22:17 | WPDURCON ---
Assessment and Plan Assessment and plan (1) Urinary retention: Code(s): R33.9 - Retention of urine, unspecified Status: Acute Assessment and Plan: 69 yo female with multiple medical issues, diabetes, bipolar, severe obesity admitted to ICU for shock from intentional overdose with urinary retention clemons patent and draining. -minimize narcotics, anticholinergics and sedatives, increase activity/ ambulation for deconditioning, agressive bowel regimen - voiding trial in future Urology Consult Note HPI Date Seen: 04/26/25 Requesting Physician: Josh Brooks MD Primary Care Provider: Soy Kelly, Consult Narrative Narrative: Cassi Yo is a 69 year old female who has numerous medical problems including HTN, severe morbid obesity, DM, bipolar disorder, admitted for intentional overdose, ICU stay. consulted for urinary retention. Pt denies prior retention issues. states her last BM was 1 week ago. Has some baseline urge incontinence due to poor mobility. Denies seeing a urologist prior. Had clemons removed when she was extubated and transfered out of ICU. Unable to void, clemons replaced. Denies frequent UTI's. Review of Systems Constitutional: Constitutional: Reports no additional constitutional complaints Eyes: Eyes: Reports as per HPI ENT: Reports system reviewed and no additional complaints, except as documented Cardiovascular: Cardiovascular: Reports no additional cardiovascular complaints Respiratory: Respiratory: Reports as per HPI Gastrointestinal: Gastrointestinal: Reports constipation Genitourinary: Genitourinary: Reports no additional female genitourinary complaints PMFSH Past Medical History Medical History (Updated 04/20/25 @ 15:56 by Isacc Flores APRN) Generalized anxiety disorder Surgical History Surgical History (Updated 04/15/25 @ 04:55 by Riley Sullivan APRN) Hx of left BKA Family History Family History Father Acute myocardial infarction Mother Diabetes mellitus Social History Social History Smoking status: Smoker, status unknown Tobacco type: cigarettes Second hand tobacco smoke exposure: Yes Alcohol intake: unknown Drinks per week: 0 Substance use: unknown Substance use type: does not use Do You Feel Safe in your Home?: Yes Lack of Transportation: No Lack of Food: Never True Current Housing: I Have Housing Concerned About Future Housing: No Difficulty Paying Gas/Electric Bills: No Difficulty Paying for Meds: No Currently Unemployed: No Education: Decline to Answer Difficulty w/ Childcare or Family Care: No Spiritual care concerns: No Meds Home Medications and Allergies Home Medications ?Medication ?Instructions ?Recorded ?Confirmed ?Type acetaminophen 325 mg tablet 325 mg PO 0900,1400,209902/13/25 04/15/25 History amlodipine 10 mg tablet 10 mg PO DAILY 02/13/25 04/15/25 History ascorbic acid (vitamin C) 500 mg 500 mg PO DAILY 02/13/25 04/15/25 History tablet (C-500) aspirin 81 mg tablet,delayed 81 mg PO DAILY 02/13/25 04/15/25 History release (Adult Low Dose Aspirin) atorvastatin 80 mg tablet 80 mg PO DAILY 02/13/25 04/15/25 History baclofen 10 mg tablet 10 mg PO TID PRN muscle spasm 02/13/25 04/15/25 History calcium carbonate (Super Calcium) 600 mg PO DAILY 02/13/25 04/15/25 History cholecalciferol (vitamin D3) 50 2,000 unit PO DAILY 02/13/25 04/15/25 History mcg (2,000 unit) capsule (Vitamin D3) clopidogrel 75 mg tablet 75 mg PO DAILY 02/13/25 04/15/25 History dapagliflozin propanediol 10 mg 10 mg PO DAILY 02/13/25 04/15/25 History tablet (Farxiga) duloxetine 60 mg capsule,delayed 60 mg PO QAM 02/13/25 04/15/25 History release ezetimibe 10 mg tablet 10 mg PO DAILY 02/13/25 04/15/25 History gabapentin 300 mg capsule 300 mg PO 0900,1400,209902/13/25 04/15/25 History hydralazine 50 mg tablet 50 mg PO 0900,1400,209902/13/25 04/15/25 History insulin aspart U-100 100 unit/mL 20 unit subcut TIDWM 02/13/25 04/15/25 History (3 mL) subcutaneous pen (Novolog FlexPen U-100 Insulin aspart) insulin glargine 100 45 unit subcut Q12H 02/13/25 04/15/25 History unit-lixisenatide 33 mcg/mL subcutaneous pen (Soliqua 100/33) lamotrigine 100 mg tablet 100 mg PO Q12H 02/13/25 04/15/25 History losartan 100 mg tablet 100 mg PO DAILY 02/13/25 04/15/25 History melatonin 5 mg tablet 5 mg PO HS 02/13/25 04/15/25 History multivitamin (Daily Multi-Vitamin 1 tablet PO DAILY 02/13/25 04/15/25 History tablet) rivaroxaban 2.5 mg tablet (Xarelto) 2.5 mg PO Q12H 02/13/25 04/15/25 History tamsulosin 0.4 mg capsule 0.4 mg PO HS #30 caps 02/18/25 04/15/25 Rx aripiprazole 5 mg tablet 5 mg PO DAILY 04/15/25 04/15/25 History sennosides 8.6 mg-docusate sodium 2 tab PO BID PRN constipation 04/15/25 04/15/25 History 50 mg tablet (Senokot-S) Allergies Allergy/AdvReac Type Severity Reaction Status Date / Time latex Allergy Unknown Unknown Verified 02/12/25 22:38 Vital Signs Vital Signs - 24 hr 04/26/25 02:14 04/26/25 02:23 04/26/25 03:28 Temperature 36.4 C Pulse Rate 65 63 65 Respiratory Rate 18 18 20 Blood Pressure 137/48 L Pulse Oximetry 94 Oxygen Delivery Fraction of Inspired Oxygen 04/26/25 08:07 04/26/25 08:07 04/26/25 09:00 Temperature Pulse Rate 69 69 65 Respiratory Rate 18 18 Blood Pressure 153/45 H Pulse Oximetry 91 Oxygen Delivery Room Air Fraction of Inspired Oxygen 21 04/26/25 09:20 04/26/25 14:11 04/26/25 16:00 Temperature 36.6 C Pulse Rate 72 72 Respiratory Rate 18 Blood Pressure 153/45 H 168/52 H Pulse Oximetry 100 Oxygen Delivery Room Air Fraction of Inspired Oxygen 04/26/25 20:28 04/26/25 20:32 04/26/25 20:36 Temperature Pulse Rate 62 65 Respiratory Rate 18 18 Blood Pressure Pulse Oximetry 96 Oxygen Delivery Room Air Fraction of Inspired Oxygen 21 Exam Const: General: comfortable and no acute distress HENMT: Face/Nose/Sinus: Normal nares present Eyes: General: appearance normal, both eyes and all related structures Resp: Effort & Inspection: normal respiratory effort GI: Inspection: non-distended Urinary Catheter: Urinary Catheter: patent and draining and urine clear Neuro: Speech: normal speech Extrem: General: normal to inspection Results Labs 04/24/25 04:23 04/24/25 04:23
[2025-04-27] VITALS (13 sets, daily range): BP systolic 142–153; BP diastolic 42–46; PULSE 66–75; RESP 18–20; TEMP 36.7–37.6; O2SAT 91–94
[2025-04-27] MEDS: IPRATROPIUM 0.5 MG/ALBUTEROL SULFATE 2.5 MG AMPUL.NEB 3 ML INHALATION ×4 (02:49→20:04)
[2025-04-27] MEDS: INSULIN ASPART (*BKC) 100 UNITS/ML 7 UNITS SUB-Q ×3 (08:42→17:01)
[2025-04-27] MEDS: INSULIN GLARGINE (*BKC) 100 UNITS/ML 20 UNITS SUB-Q (08:42)
[2025-04-27] MEDS: EZETIMIBE 10 MG TABLET PO (08:43)
[2025-04-27] MEDS: EMPAGLIFLOZIN 25 MG TABLET PO (08:43)
[2025-04-27] MEDS: RIVAROXABAN 2.5 MG TABLET PO ×2 (08:43→20:50)
[2025-04-27] MEDS: CLOPIDOGREL BISULFATE 75 MG TABLET PO (08:43)
[2025-04-27] MEDS: PANTOPRAZOLE 40 MG TABLET PO (08:43)
[2025-04-27] MEDS: TAMSULOSIN HCL 0.4 MG CAPSULE PO (08:43)
[2025-04-27] MEDS: DULoxetine HCL 60 MG CAPSULE.DR PO (08:43)
[2025-04-27] MEDS: CALCIUM CARBONATE (OSCAL) 500 MG TABLET PO (08:43)
[2025-04-27] MEDS: LOSARTAN POTASSIUM 100 MG TABLET PO (08:43)
[2025-04-27] MEDS: ASPIRIN 81 MG ENTERIC TABLET PO (08:43)
[2025-04-27] MEDS: LIDOCAINE 5% PATCH 1 PATCH TRANSDERM (08:44)
[2025-04-27] MEDS: GABAPENTIN 300 MG CAPSULE PO ×3 (08:48→20:49)
[2025-04-27] MEDS: ATORVASTATIN 40 MG TABLET 80 MG PO (08:48)
--- NOTE | 2025-04-27 11:06 | PC.NURSE ---
Patient refusing thickened liquid diet. Educated about risk for aspiration. Patient verbalized risk and is alert and oriented. Provider notified
--- NOTE | 2025-04-27 11:06 | PM.IMPN ---
Progress Note: A&P Assessment and Plan (1) Suicide attempt: Code(s): T14.91XA - Suicide attempt, initial encounter Status: Acute (2) Intentional drug overdose: Code(s): T50.902A - Poisoning by unspecified drugs, medicaments and biological substances, intentional self-harm, initial encounter Status: Acute (3) Intentional overdose of calcium-channel ryne: Code(s): T46.1X2A - Poisoning by calcium-channel blockers, intentional self-harm, initial encounter Status: Acute (4) Bipolar 1 disorder, depressed, severe: Code(s): F31.4 - Bipolar disorder, current episode depressed, severe, without psychotic features Status: Acute (5) Polysubstance abuse: Code(s): F19.10 - Other psychoactive substance abuse, uncomplicated Status: Acute (6) Diabetes mellitus: Code(s): E11.9 - Type 2 diabetes mellitus without complications Status: Acute (7) Urinary retention: Code(s): R33.9 - Retention of urine, unspecified Status: Acute Plan 69-year-old female who presented after an intentional overdose of her morning medications, reportedly due to suicidal ideation (just over life, can't do it anymore). Family members called EMS when she told them she took 10 of each of her morning medications. 1. Intentional drug overdose: Patient with calcium channel ryne/amlodipine overdose causing severe hypotension, bradycardia. Poison Control was notified and following and recommended insulin infusion. Status post multiple doses of calcium chloride, calcium gluconate, epinephrine infusion, insulin infusion Crisis management signed contract with the patient and noted patient can discharge to SNF WIll follow up with Psych in week post discharge and outpatient CBT/DBT 2. Circulatory shock: Resolved 3. Respiratory failure: Resolved, currently on room air Requiring CPAP at night Possible aspiration pneumonia due to emesis in the ER upon arrival Was intubated,/extubated now Currently on doxycycline Might have a component of obstructive sleep apnea due to her body habitus Might benefit from outpatient sleep study 4. Type 2 diabetes mellitus: Switch to blood glucose checked t.i.d. a.c. and HS Will start on Lantus 20 units Mealtime 7 units insulin t.i.d. a.c. Adjust dose as needed 5.History of revascularization and stent placement Continue home does Xarelto 2.5 mg b.i.d. and Plavix 75 mg p.o. daily, aspirin 81 mg daily, atorvastatin 80 mg HS 6. Elevated blood pressure: Continue with Norvasc, losartan Increase hydralazine to 75 mg t.i.d. 7. Weakness in extremities: ? Physical deconditioning ICU stay Obtain CT cervical spine, lumbar spine Cannot do MRI due to body habitus here Urinary retention Patient failed voiding trial Started on Tamsulosin Urology eval noted Aspiration risk patient refusing diet recommendation per Speech therapy eval Counseled about adherence to avoid aspiration DVT prophylaxis: On Xarelto Code status: DNR Disposition: Pending placement Subjective Date/time seen: 04/27/25 11:06 Interval history: Comfortable at bedside and awaiting placement Patient refusing diet recommendation per ST and asking for her Review of Systems Review of Systems: All systems reviewed & are unremarkable except as noted in HPI and below ROS unobtainable: Yes unobtainable due to endotracheal tube, unobtainable due to medical condition and unobtainable due to mental status Exam Narrative: General: Morbidly obese HEENT:? Pupils equal and reactive, sclera is clear Neck:? Supple Respiratory:? Clear to auscultation bilaterally, no wheezing/rhonchi/crackles Cardiac:? Regular rate rhythm, S1 and S2 appreciated. No murmur/gallop/regurgitation Abdomen:? 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 Alert and oriented to person, place, and situation. She has smack her lip. Right hand tremor. Skin:? Multiple healing wounds on the bilateral lower extremity Psych:? Mood appropriate Objective Data Vital Signs Vital Signs: Vital Signs - 24 hr 04/26/25 14:11 04/26/25 16:00 04/26/25 20:00 Temperature 97.8 F Pulse Rate 72 72 Respiratory Rate 18 Blood Pressure 153/45 H 168/52 H Pulse Oximetry 100 Oxygen Delivery Room Air Fraction of Inspired Oxygen 04/26/25 20:28 04/26/25 20:32 04/26/25 20:36 Temperature Pulse Rate 62 65 Respiratory Rate 18 18 Blood Pressure Pulse Oximetry 96 Oxygen Delivery Room Air Fraction of Inspired Oxygen 21 04/26/25 21:27 04/27/25 02:51 04/27/25 02:59 Temperature 97.7 F Pulse Rate 72 66 68 Respiratory Rate 18 18 18 Blood Pressure 165/55 H Pulse Oximetry 96 Oxygen Delivery Fraction of Inspired Oxygen 04/27/25 05:55 Temperature 98.7 F Pulse Rate 69 Respiratory Rate 20 Blood Pressure 145/44 H Pulse Oximetry 91 Oxygen Delivery Fraction of Inspired Oxygen Intake/Output Intake/Output: Intake & Output 04/24/25 04/25/25 04/26/25 04/27/25 23:59 23:59 23:59 23:59 Intake Total 2850 2090 2460 970 Output Total 2525 2700 2300 1100 Balance 325 -610 160 -130 Meds/Results Medications: Active Medications Generic Name Dose Route Start Last Admin Trade Name Freq PRN Reason Stop Dose Admin Acetaminophen 650 mg 04/23/25 14:09 04/25/25 20:12 Acetaminophen 325 Mg Tablet PO 650 mg Q4H PRN Administration Mild Pain (1-3) or Fever Albuterol/Ipratropium 3 ml 04/15/25 07:30 04/27/25 07:49 Ipratropium 0.5 Mg/Albuterol Sulfate 2.5 Mg Ampul.Neb 3 Ml INHALATION 3 ml Q6HRT FARHANA Administration Amlodipine Besylate 10 mg 04/21/25 09:00 04/27/25 08:43 Amlodipine Besylate 10 Mg Tablet PO 10 mg DAILY FARHANA Administration Aspirin 81 mg 04/19/25 14:30 04/27/25 08:43 Aspirin 81 Mg Enteric Tablet PO 81 mg DAILY FARHANA Administration Atorvastatin Calcium 80 mg 04/19/25 14:30 04/27/25 08:48 Atorvastatin 40 Mg Tablet PO 80 mg DAILY FARHANA Administration Baclofen 10 mg 04/21/25 08:19 04/26/25 14:12 Baclofen 10 Mg Tablet PO 10 mg TID PRN Administration Muscle Spasm Calcium Carbonate 500 mg 04/21/25 09:00 04/27/25 08:43 Calcium Carbonate (Oscal) 500 Mg Tablet PO 500 mg QAM FARHANA Administration Clopidogrel Bisulfate 75 mg 04/19/25 14:30 04/27/25 08:43 Clopidogrel Bisulfate 75 Mg Tablet PO 75 mg DAILY FARHANA Administration Dextrose 12.5 gm 04/23/25 13:05 Dextrose 50% 25 Gm/50 Ml Syringe IV PUSH PRN PRN Hypoglycemia Protocol Duloxetine HCl 60 mg 04/19/25 14:30 04/27/25 08:43 Duloxetine Hcl 60 Mg Capsule.Dr PO 60 mg QAM FARHANA Administration Ezetimibe 10 mg 04/19/25 14:30 04/27/25 08:43 Ezetimibe 10 Mg Tablet PO 10 mg DAILY FARHANA Administration Empagliflozin 25 mg 04/19/25 14:35 04/27/25 08:43 Empagliflozin 25 Mg Tablet PO 05/20/25 14:34 25 mg DAILY FARHANA Administration Gabapentin 300 mg 04/21/25 21:10 04/27/25 08:48 Gabapentin 300 Mg Capsule PO 300 mg 0900,1400,2100 FARHANA Administration Glucagon 1 mg 04/23/25 13:05 Glucagon For Inj 1 Mg Vial IM PRN PRN Hypoglycemia Protocol Glucose 15 gm 04/23/25 13:05 Glucose Oral Gel 15 Gm Of Glucse In 37.5 Gm Tube PO PRN PRN Hypoglycemia Protocol Hydralazine HCl 10 mg 04/18/25 11:43 04/21/25 18:31 Hydralazine Hcl 20 Mg/Ml Vial IV PUSH 10 mg Q4H PRN Administration Blood Pressure - High Hydralazine HCl 50 mg 04/19/25 14:00 04/27/25 08:48 Hydralazine Hcl 50 Mg Tablet PO 50 mg 0900,1400,2100 FARHANA Administration Dextrose 1,000 mls @ 100 mls/hr 04/23/25 13:05 Dextrose 5% 1,000 Ml IVPB PRN PRN Hypoglycemia Protocol Insulin Aspart 7 units 04/23/25 17:00 04/27/25 08:42 Insulin Aspart (*Bkc) 100 Units/Ml 0.05 units/kg (7 units) 7 units SUB-Q Administration TIDWM [facility] Insulin Glargine 20 units 04/23/25 13:10 04/27/25 08:42 Insulin Glargine (*Bkc) 100 Units/Ml 0.15 units/kg (20 units) 20 units SUB-Q Administration DAILY [facility] Labetalol HCl 10 mg 04/20/25 11:43 Labetalol Hcl Inj 100 Mg/20 Ml Vial IV PUSH BID PRN Blood Pressure - High Lidocaine 1 patch 04/21/25 18:00 04/27/25 08:44 Lidocaine 5% Patch TRANSDERM 1 patch DAILY FARHANA Administration Losartan Potassium 100 mg 04/21/25 09:00 04/27/25 08:43 Losartan Potassium 100 Mg Tablet PO 100 mg DAILY FARHANA Administration Melatonin 5 mg 04/21/25 21:00 04/26/25 21:15 Melatonin 5 Mg Tablet PO 5 mg HS FARHANA Administration Pantoprazole Sodium 40 mg 04/24/25 09:00 04/27/25 08:43 Pantoprazole 40 Mg Tablet PO 40 mg QAM FARHANA Administration Quetiapine Fumarate 200 mg 04/24/25 21:00 04/26/25 21:15 Quetiapine Fumarate 100 Mg Tablet PO 200 mg HS FARHANA Administration Rivaroxaban 2.5 mg 04/19/25 21:00 04/27/25 08:43 Rivaroxaban 2.5 Mg Tablet PO 2.5 mg Q12H FARHANA Administration Senna/Docusate Sodium 2 tab 04/21/25 08:19 Senna/Docusate Sodium Tablet PO BID PRN Constipation Sodium Chloride 20 ml 04/15/25 02:07 04/20/25 06:24 Central Line Flush IV PUSH 20 ml PRN PRN Administration after blood draws Tamsulosin HCl 0.4 mg 04/26/25 11:40 04/27/25 08:43 Tamsulosin Hcl 0.4 Mg Capsule PO 0.4 mg QAM FARHANA Administration Radiology Results: ITS Impressions Abdomen X-Ray 04/14/25 20:46 IMPRESSION: 1. Endotracheal tube and orogastric tube in expected positions. 2. Decreased left lung volume with elevation the left hemidiaphragm and patchy airspace opacities throughout the left lung which could represent atelectasis and/or pneumonia. 3. Pulmonary vascular congestion with increased interstitial pattern in the right perihilar region which could represent mild pulmonary edema and/or pneumonia. Head CT 04/15/25 08:50 IMPRESSION: 1. No acute intracranial abnormality. Modified Barium Swallow 04/22/25 11:21 IMPRESSION: Laryngeal penetration without aspiration with thin liquids which improved with chin tuck position and decreased bolus size. Please correlate with speech pathologist findings and specific feeding recommendations. Cervical Spine CT 04/24/25 08:34 IMPRESSION: No evidence for cervical spine fracture or traumatic subluxation. Multilevel degenerative changes of the cervical spine. Lumbar Spine CT 04/24/25 14:05 IMPRESSION: 1. Severe lower thoracic and lumbar spondylosis with multilevel central canal and bilateral neural foraminal narrowing. Chest X-Ray 04/25/25 07:37 IMPRESSION: 1. Chronic elevation the left hemidiaphragm with persistent left basilar opacities opacities and favor atelectasis over pneumonia. Labs Labs: Laboratory Results - last 24 hr 04/26/25 04/26/25 04/26/25 08:19 11:59 16:47 POC Capillary Glucose 149 H 167 H 173 H 04/26/25 04/27/25 21:03 07:25 POC Capillary Glucose 182 H 153 H Quality VTE Prophylaxis VTE prophylaxis: pharmacologic ordered
--- NOTE | 2025-04-27 11:58 | WPDUROPN2 ---
Progress Note: A&P Assessment and Plan (1) Intentional overdose of calcium-channel ryne: Code(s): T46.1X2A - Poisoning by calcium-channel blockers, intentional self-harm, initial encounter Status: Acute (2) Aspiration pneumonia: Code(s): J69.0 - Pneumonitis due to inhalation of food and vomit Status: Acute (3) Urinary retention: Code(s): R33.9 - Retention of urine, unspecified Status: Acute Assessment and Plan: continue clemons. increase activity/ambulation, consider PT eval -minimize narcotics/anticholinergics/sedatives -void trial in future Subjective Subjective Date/Time Seen: 04/27/25 11:58 Interval history: no complaints. Clemons clear. No BM yet, not ambulated Review of Systems Constitutional: Constitutional: Reports no additional constitutional complaints Eyes: Eyes: Reports as per HPI ENT: Reports system reviewed and no additional complaints, except as documented Cardiovascular: Cardiovascular: Reports no additional cardiovascular complaints Respiratory: Respiratory: Reports as per HPI Gastrointestinal: Gastrointestinal: Reports constipation Genitourinary: Genitourinary: Reports no additional female genitourinary complaints Exam Const: General: comfortable and no acute distress HENMT: Face/Nose/Sinus: Normal nares present Eyes: General: appearance normal, both eyes and all related structures Resp: Effort & Inspection: normal respiratory effort GI: Inspection: non-distended Urinary Catheter: Urinary Catheter: patent and draining and urine clear Neuro: Speech: normal speech Extrem: General: normal to inspection Objective Data Vital Signs Vital Signs: Vital Signs - 24 hr 04/26/25 14:11 04/26/25 16:00 04/26/25 20:00 Temperature 36.6 C Pulse Rate 72 72 Respiratory Rate 18 Blood Pressure 153/45 H 168/52 H Pulse Oximetry 100 Oxygen Delivery Room Air Fraction of Inspired Oxygen 04/26/25 20:28 04/26/25 20:32 04/26/25 20:36 Temperature Pulse Rate 62 65 Respiratory Rate 18 18 Blood Pressure Pulse Oximetry 96 Oxygen Delivery Room Air Fraction of Inspired Oxygen 21 04/26/25 21:27 04/27/25 02:51 04/27/25 02:59 Temperature 36.5 C Pulse Rate 72 66 68 Respiratory Rate 18 18 18 Blood Pressure 165/55 H Pulse Oximetry 96 Oxygen Delivery Fraction of Inspired Oxygen 04/27/25 05:55 Temperature 37.1 C Pulse Rate 69 Respiratory Rate 20 Blood Pressure 145/44 H Pulse Oximetry 91 Oxygen Delivery Fraction of Inspired Oxygen Intake/Output Intake/Output: Intake & Output 04/24/25 04/25/25 04/26/25 04/27/25 23:59 23:59 23:59 23:59 Intake Total 2850 2090 2460 970 Output Total 2525 2700 2300 1100 Balance 325 -610 160 -130 Meds/Results Medications: Active Medications Generic Name Dose Route Start Last Admin Trade Name Freq PRN Reason Stop Dose Admin Acetaminophen 650 mg 04/23/25 14:09 04/25/25 20:12 Acetaminophen 325 Mg Tablet PO 650 mg Q4H PRN Administration Mild Pain (1-3) or Fever Albuterol/Ipratropium 3 ml 04/15/25 07:30 04/27/25 07:49 Ipratropium 0.5 Mg/Albuterol Sulfate 2.5 Mg Ampul.Neb 3 Ml INHALATION 3 ml Q6HRT FARHANA Administration Amlodipine Besylate 10 mg 04/21/25 09:00 04/27/25 08:43 Amlodipine Besylate 10 Mg Tablet PO 10 mg DAILY FARHANA Administration Aspirin 81 mg 04/19/25 14:30 04/27/25 08:43 Aspirin 81 Mg Enteric Tablet PO 81 mg DAILY FARHANA Administration Atorvastatin Calcium 80 mg 04/19/25 14:30 04/27/25 08:48 Atorvastatin 40 Mg Tablet PO 80 mg DAILY FARHANA Administration Baclofen 10 mg 04/21/25 08:19 04/26/25 14:12 Baclofen 10 Mg Tablet PO 10 mg TID PRN Administration Muscle Spasm Calcium Carbonate 500 mg 04/21/25 09:00 04/27/25 08:43 Calcium Carbonate (Oscal) 500 Mg Tablet PO 500 mg QAM FARHANA Administration Clopidogrel Bisulfate 75 mg 04/19/25 14:30 04/27/25 08:43 Clopidogrel Bisulfate 75 Mg Tablet PO 75 mg DAILY FARHANA Administration Dextrose 12.5 gm 04/23/25 13:05 Dextrose 50% 25 Gm/50 Ml Syringe IV PUSH PRN PRN Hypoglycemia Protocol Duloxetine HCl 60 mg 04/19/25 14:30 04/27/25 08:43 Duloxetine Hcl 60 Mg Capsule.Dr PO 60 mg QAM FARHANA Administration Ezetimibe 10 mg 04/19/25 14:30 04/27/25 08:43 Ezetimibe 10 Mg Tablet PO 10 mg DAILY FARHANA Administration Empagliflozin 25 mg 04/19/25 14:35 04/27/25 08:43 Empagliflozin 25 Mg Tablet PO 05/20/25 14:34 25 mg DAILY FARHANA Administration Gabapentin 300 mg 04/21/25 21:10 04/27/25 08:48 Gabapentin 300 Mg Capsule PO 300 mg 0900,1400,2100 FARHANA Administration Glucagon 1 mg 04/23/25 13:05 Glucagon For Inj 1 Mg Vial IM PRN PRN Hypoglycemia Protocol Glucose 15 gm 04/23/25 13:05 Glucose Oral Gel 15 Gm Of Glucse In 37.5 Gm Tube PO PRN PRN Hypoglycemia Protocol Hydralazine HCl 10 mg 04/18/25 11:43 04/21/25 18:31 Hydralazine Hcl 20 Mg/Ml Vial IV PUSH 10 mg Q4H PRN Administration Blood Pressure - High Hydralazine HCl 50 mg 04/19/25 14:00 04/27/25 08:48 Hydralazine Hcl 50 Mg Tablet PO 50 mg 0900,1400,2100 FARHANA Administration Dextrose 1,000 mls @ 100 mls/hr 04/23/25 13:05 Dextrose 5% 1,000 Ml IVPB PRN PRN Hypoglycemia Protocol Insulin Aspart 7 units 04/23/25 17:00 04/27/25 08:42 Insulin Aspart (*Bkc) 100 Units/Ml 0.05 units/kg (7 units) 7 units SUB-Q Administration TIDWM FARHANA Insulin Glargine 20 units 04/23/25 13:10 04/27/25 08:42 Insulin Glargine (*Bkc) 100 Units/Ml 0.15 units/kg (20 units) 20 units SUB-Q Administration DAILY FARHANA Labetalol HCl 10 mg 04/20/25 11:43 Labetalol Hcl Inj 100 Mg/20 Ml Vial IV PUSH BID PRN Blood Pressure - High Lidocaine 1 patch 04/21/25 18:00 04/27/25 08:44 Lidocaine 5% Patch TRANSDERM 1 patch DAILY FARHANA Administration Losartan Potassium 100 mg 04/21/25 09:00 04/27/25 08:43 Losartan Potassium 100 Mg Tablet PO 100 mg DAILY FARHANA Administration Melatonin 5 mg 04/21/25 21:00 04/26/25 21:15 Melatonin 5 Mg Tablet PO 5 mg HS FARHANA Administration Pantoprazole Sodium 40 mg 04/24/25 09:00 04/27/25 08:43 Pantoprazole 40 Mg Tablet PO 40 mg QAM FARHANA Administration Quetiapine Fumarate 200 mg 04/24/25 21:00 04/26/25 21:15 Quetiapine Fumarate 100 Mg Tablet PO 200 mg HS FARHANA Administration Rivaroxaban 2.5 mg 04/19/25 21:00 04/27/25 08:43 Rivaroxaban 2.5 Mg Tablet PO 2.5 mg Q12H FARHANA Administration Senna/Docusate Sodium 2 tab 04/21/25 08:19 Senna/Docusate Sodium Tablet PO BID PRN Constipation Sodium Chloride 20 ml 04/15/25 02:07 04/20/25 06:24 Central Line Flush IV PUSH 20 ml PRN PRN Administration after blood draws Tamsulosin HCl 0.4 mg 04/26/25 11:40 04/27/25 08:43 Tamsulosin Hcl 0.4 Mg Capsule PO 0.4 mg QAM FARHANA Administration Radiology Results: ITS Impressions Abdomen X-Ray 04/14/25 20:46 IMPRESSION: 1. Endotracheal tube and orogastric tube in expected positions. 2. Decreased left lung volume with elevation the left hemidiaphragm and patchy airspace opacities throughout the left lung which could represent atelectasis and/or pneumonia. 3. Pulmonary vascular congestion with increased interstitial pattern in the right perihilar region which could represent mild pulmonary edema and/or pneumonia. Head CT 04/15/25 08:50 IMPRESSION: 1. No acute intracranial abnormality. Modified Barium Swallow 04/22/25 11:21 IMPRESSION: Laryngeal penetration without aspiration with thin liquids which improved with chin tuck position and decreased bolus size. Please correlate with speech pathologist findings and specific feeding recommendations. Cervical Spine CT 04/24/25 08:34 IMPRESSION: No evidence for cervical spine fracture or traumatic subluxation. Multilevel degenerative changes of the cervical spine. Lumbar Spine CT 04/24/25 14:05 IMPRESSION: 1. Severe lower thoracic and lumbar spondylosis with multilevel central canal and bilateral neural foraminal narrowing. Chest X-Ray 04/25/25 07:37 IMPRESSION: 1. Chronic elevation the left hemidiaphragm with persistent left basilar opacities opacities and favor atelectasis over pneumonia. Labs Labs: Laboratory Results - last 24 hr 04/26/25 04/26/25 04/26/25 08:19 11:59 16:47 POC Capillary Glucose 149 H 167 H 173 H 04/26/25 04/27/25 04/27/25 21:03 07:25 11:29 POC Capillary Glucose 182 H 153 H 207 H
[2025-04-27] MEDS: ACETAMINOPHEN 325 MG TABLET 650 MG PO (14:38)
[2025-04-27] MEDS: MELATONIN 5 MG TABLET PO (20:51)
[2025-04-28] VITALS (13 sets, daily range): BP systolic 145–164; BP diastolic 44–48; PULSE 62–72; RESP 18–20; TEMP 36.4–36.8; O2SAT 90–99; BMI 49.4; BMI 10.0
[2025-04-28] MEDS: IPRATROPIUM 0.5 MG/ALBUTEROL SULFATE 2.5 MG AMPUL.NEB 3 ML INHALATION ×4 (01:53→19:28)
[2025-04-28 04:50] LABS: Hematocrit 31.3 % (37.0-47.0); Hemoglobin 9.5 g/dL (12.0-15.0); Immature Granulocyte Percent A 0.4 % (0-0.5); Immature Platelet Fraction Pct 4.3 % (0.9-11.2); Lymphocytes Absolute Auto 1.15 K/mm3 (0.9-3.2); Mean Corpuscular HGB Conc 30.4 g/dl (32-36); Mean Corpuscular Hemoglobin 29.1 pg (26-34); Mean Corpuscular Volume 96.0 fl (80-100); Nucleated Red Blood Cells Absolute Auto 0.000 K/mm3 (0.0-0.012); Nucleated Red Blood Cells Perc 0.0 % (0.0-0.2); Platelet Count Result 84 k/mm3 (150-375); Red Blood Count 3.26 M/mm3 (4.2-5.4); White Blood Count 9.7 K/mm3 (4.5-10.0)
[2025-04-28 05:07] LABS: Alanine Aminotransferase 25 U/L (6-35); Albumin Level 2.9 g/dL (3.5-5.1); Alkaline Phosphatase 120 U/L (38-126); Anion Gap 7 mmol/L (4-12); Aspartate Amino Transferase 40 U/L (14-36); Bilirubin,Total 0.5 mg/dL (0.2-1.3); Blood Urea Nitrogen 29 mg/dL (7-17); Calcium 9.1 mg/dL (8.4-10.2); Carbon Dioxide 25 mmol/L (22-30); Chloride 113 mmol/L (98-107); Estimated CRCL calculation 70 ml/min; Estimated Glomerular Filt Rate 54; Glucose 185 mg/dL (65-110); Magnesium 2.4 mg/dL (1.6-2.3); Potassium 4.0 mmol/L (3.4-5.0); Sodium 145 mmol/L (137-145); Total Protein 5.6 g/dL (6.3-8.2)
[2025-04-28] MEDS: INSULIN GLARGINE (*BKC) 100 UNITS/ML 20 UNITS SUB-Q (08:07)
[2025-04-28] MEDS: LIDOCAINE 5% PATCH 1 PATCH TRANSDERM (08:07)
[2025-04-28] MEDS: INSULIN ASPART (*BKC) 100 UNITS/ML 7 UNITS SUB-Q ×3 (08:07→17:18)
[2025-04-28] MEDS: ATORVASTATIN 40 MG TABLET 80 MG PO (08:08)
[2025-04-28] MEDS: EMPAGLIFLOZIN 25 MG TABLET PO (08:08)
[2025-04-28] MEDS: EZETIMIBE 10 MG TABLET PO (08:08)
[2025-04-28] MEDS: CLOPIDOGREL BISULFATE 75 MG TABLET PO (08:08)
[2025-04-28] MEDS: ASPIRIN 81 MG ENTERIC TABLET PO (08:08)
[2025-04-28] MEDS: DULoxetine HCL 60 MG CAPSULE.DR PO (08:08)
[2025-04-28] MEDS: LOSARTAN POTASSIUM 100 MG TABLET PO (08:08)
[2025-04-28] MEDS: GABAPENTIN 300 MG CAPSULE PO ×3 (08:08→20:29)
[2025-04-28] MEDS: TAMSULOSIN HCL 0.4 MG CAPSULE PO (08:08)
[2025-04-28] MEDS: PANTOPRAZOLE 40 MG TABLET PO (08:08)
[2025-04-28] MEDS: RIVAROXABAN 2.5 MG TABLET PO ×2 (08:08→20:28)
[2025-04-28] MEDS: CALCIUM CARBONATE (OSCAL) 500 MG TABLET PO (08:23)
--- NOTE | 2025-04-28 12:03 | PM.IMPN ---
Progress Note: A&P Assessment and Plan (1) Suicide attempt: Code(s): T14.91XA - Suicide attempt, initial encounter Status: Acute (2) Intentional drug overdose: Code(s): T50.902A - Poisoning by unspecified drugs, medicaments and biological substances, intentional self-harm, initial encounter Status: Acute (3) Intentional overdose of calcium-channel ryne: Code(s): T46.1X2A - Poisoning by calcium-channel blockers, intentional self-harm, initial encounter Status: Acute (4) Bipolar 1 disorder, depressed, severe: Code(s): F31.4 - Bipolar disorder, current episode depressed, severe, without psychotic features Status: Acute (5) Polysubstance abuse: Code(s): F19.10 - Other psychoactive substance abuse, uncomplicated Status: Acute (6) Diabetes mellitus: Code(s): E11.9 - Type 2 diabetes mellitus without complications Status: Acute (7) Urinary retention: Code(s): R33.9 - Retention of urine, unspecified Status: Acute Plan 69-year-old female who presented after an intentional overdose of her morning medications, reportedly due to suicidal ideation (just over life, can't do it anymore). Family members called EMS when she told them she took 10 of each of her morning medications. 1. Intentional drug overdose: Patient with calcium channel ryne/amlodipine overdose causing severe hypotension, bradycardia. Poison Control was notified and following and recommended insulin infusion. Status post multiple doses of calcium chloride, calcium gluconate, epinephrine infusion, insulin infusion Crisis management signed contract with the patient and noted patient can discharge to SNF WIll follow up with Psych in week post discharge and outpatient CBT/DBT 2. Circulatory shock: Resolved 3. Respiratory failure: Resolved, currently on room air Requiring CPAP at night Possible aspiration pneumonia due to emesis in the ER upon arrival Was intubated,/extubated now Completed antibiotics Might have a component of obstructive sleep apnea due to her body habitus Might benefit from outpatient sleep study 4. Type 2 diabetes mellitus: Switch to blood glucose checked t.i.d. a.c. and HS Will start on Lantus 20 units Mealtime 7 units insulin t.i.d. a.c. Adjust dose as needed 5.History of revascularization and stent placement Continue home does Xarelto 2.5 mg b.i.d. and Plavix 75 mg p.o. daily, aspirin 81 mg daily, atorvastatin 80 mg HS 6. Elevated blood pressure: Continue with Norvasc, losartan Increase hydralazine to 75 mg t.i.d. added HCTZ monitor 7. Weakness in extremities: ? Physical deconditioning ICU stay Obtain CT cervical spine, lumbar spine Cannot do MRI due to body habitus here Urinary retention Patient failed voiding trial Started on Tamsulosin Urology eval noted Aspiration risk patient refusing diet recommendation per Speech therapy eval Counseled about adherence to avoid aspiration Continue speech therapy DVT prophylaxis: On Xarelto Code status: DNR Disposition: Pending placement Subjective Date/time seen: 04/28/25 12:03 Interval history: Comfortable at bedside counseled patient to adhere to the ST recs to avoid aspiration FOr voiding trial today Review of Systems Review of Systems: All systems reviewed & are unremarkable except as noted in HPI and below ROS unobtainable: Yes unobtainable due to endotracheal tube, unobtainable due to medical condition and unobtainable due to mental status Exam Narrative: General: Morbidly obese HEENT:? Pupils equal and reactive, sclera is clear Neck:? Supple Respiratory:? Clear to auscultation bilaterally, no wheezing/rhonchi/crackles Cardiac:? Regular rate rhythm, S1 and S2 appreciated. No murmur/gallop/regurgitation Abdomen:? 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 Alert and oriented to person, place, and situation. She has smack her lip. Right hand tremor. Skin:? Multiple healing wounds on the bilateral lower extremity Psych:? Mood appropriate Objective Data Vital Signs Vital Signs: Vital Signs - 24 hr 04/27/25 14:13 04/27/25 14:13 04/27/25 14:37 Temperature 99.7 F H Pulse Rate 71 71 75 Respiratory Rate 20 20 20 Blood Pressure 153/42 H Pulse Oximetry 93 94 Oxygen Delivery Room Air Fraction of Inspired Oxygen 21 04/27/25 14:38 04/27/25 15:38 04/27/25 20:00 Temperature 99.7 F H 98.8 F Pulse Rate Respiratory Rate Blood Pressure Pulse Oximetry Oxygen Delivery Room Air Fraction of Inspired Oxygen 04/27/25 20:05 04/27/25 20:06 04/27/25 20:17 Temperature Pulse Rate 70 68 Respiratory Rate 18 18 Blood Pressure Pulse Oximetry 92 Oxygen Delivery Room Air Fraction of Inspired Oxygen 04/27/25 20:37 04/28/25 01:54 04/28/25 02:02 Temperature 98.1 F Pulse Rate 73 72 70 Respiratory Rate 18 18 18 Blood Pressure 142/46 H Pulse Oximetry 92 Oxygen Delivery Fraction of Inspired Oxygen 04/28/25 05:10 04/28/25 07:59 04/28/25 08:00 Temperature 97.7 F Pulse Rate 68 67 Respiratory Rate 18 18 Blood Pressure 164/44 H Pulse Oximetry 90 Oxygen Delivery Room Air Fraction of Inspired Oxygen 04/28/25 08:06 04/28/25 08:08 Temperature Pulse Rate 63 67 Respiratory Rate 18 18 Blood Pressure Pulse Oximetry 94 Oxygen Delivery Room Air Fraction of Inspired Oxygen Intake/Output Intake/Output: Intake & Output 04/25/25 04/26/25 04/27/25 04/28/25 23:59 23:59 23:59 23:59 Intake Total 2090 2460 1210 300 Output Total 2700 2300 2725 750 Balance -610 160 -1515 -450 Meds/Results Medications: Active Medications Generic Name Dose Route Start Last Admin Trade Name Freq PRN Reason Stop Dose Admin Acetaminophen 650 mg 04/23/25 14:09 04/27/25 14:38 Acetaminophen 325 Mg Tablet PO 650 mg Q4H PRN Administration Mild Pain (1-3) or Fever Albuterol/Ipratropium 3 ml 04/15/25 07:30 04/28/25 07:59 Ipratropium 0.5 Mg/Albuterol Sulfate 2.5 Mg Ampul.Neb 3 Ml INHALATION 3 ml Q6HRT FARHANA Administration Amlodipine Besylate 10 mg 04/21/25 09:00 04/28/25 08:08 Amlodipine Besylate 10 Mg Tablet PO 10 mg DAILY FARHANA Administration Aspirin 81 mg 04/19/25 14:30 04/28/25 08:08 Aspirin 81 Mg Enteric Tablet PO 81 mg DAILY FARHANA Administration Atorvastatin Calcium 80 mg 04/19/25 14:30 04/28/25 08:08 Atorvastatin 40 Mg Tablet PO 80 mg DAILY FARHANA Administration Baclofen 10 mg 04/21/25 08:19 04/26/25 14:12 Baclofen 10 Mg Tablet PO 10 mg TID PRN Administration Muscle Spasm Calcium Carbonate 500 mg 04/21/25 09:00 04/28/25 08:23 Calcium Carbonate (Oscal) 500 Mg Tablet PO 500 mg QAM FARHANA Administration Clopidogrel Bisulfate 75 mg 04/19/25 14:30 04/28/25 08:08 Clopidogrel Bisulfate 75 Mg Tablet PO 75 mg DAILY FARHANA Administration Dextrose 12.5 gm 04/23/25 13:05 Dextrose 50% 25 Gm/50 Ml Syringe IV PUSH PRN PRN Hypoglycemia Protocol Duloxetine HCl 60 mg 04/19/25 14:30 04/28/25 08:08 Duloxetine Hcl 60 Mg Capsule. PO 60 mg QAM FARHANA Administration Ezetimibe 10 mg 04/19/25 14:30 04/28/25 08:08 Ezetimibe 10 Mg Tablet PO 10 mg DAILY FARHANA Administration Empagliflozin 25 mg 04/19/25 14:35 04/28/25 08:08 Empagliflozin 25 Mg Tablet PO 05/20/25 14:34 25 mg DAILY FARHANA Administration Gabapentin 300 mg 04/21/25 21:10 04/28/25 08:08 Gabapentin 300 Mg Capsule PO 300 mg 0900,1400,2100 FARHANA Administration Glucagon 1 mg 04/23/25 13:05 Glucagon For Inj 1 Mg Vial IM PRN PRN Hypoglycemia Protocol Glucose 15 gm 04/23/25 13:05 Glucose Oral Gel 15 Gm Of Glucse In 37.5 Gm Tube PO PRN PRN Hypoglycemia Protocol Hydralazine HCl 10 mg 04/18/25 11:43 04/21/25 18:31 Hydralazine Hcl 20 Mg/Ml Vial IV PUSH 10 mg Q4H PRN Administration Blood Pressure - High Hydralazine HCl 50 mg 04/19/25 14:00 04/28/25 08:23 Hydralazine Hcl 50 Mg Tablet PO 50 mg 0900,1400,2100 FARHANA Administration Dextrose 1,000 mls @ 100 mls/hr 04/23/25 13:05 Dextrose 5% 1,000 Ml IVPB PRN PRN Hypoglycemia Protocol Insulin Aspart 7 units 04/23/25 17:00 04/28/25 08:07 Insulin Aspart (*Bkc) 100 Units/Ml 0.05 units/kg (7 units) 7 units SUB-Q Administration TIDWM [facility] Insulin Glargine 20 units 04/23/25 13:10 04/28/25 08:07 Insulin Glargine (*Bkc) 100 Units/Ml 0.15 units/kg (20 units) 20 units SUB-Q Administration DAILY FARHANA Labetalol HCl 10 mg 04/20/25 11:43 Labetalol Hcl Inj 100 Mg/20 Ml Vial IV PUSH BID PRN Blood Pressure - High Lidocaine 1 patch 04/21/25 18:00 04/28/25 08:07 Lidocaine 5% Patch TRANSDERM 1 patch DAILY FARHANA Administration Losartan Potassium 100 mg 04/21/25 09:00 04/28/25 08:08 Losartan Potassium 100 Mg Tablet PO 100 mg DAILY FARHANA Administration Melatonin 5 mg 04/21/25 21:00 04/27/25 20:51 Melatonin 5 Mg Tablet PO 5 mg HS FARHANA Administration Pantoprazole Sodium 40 mg 04/24/25 09:00 04/28/25 08:08 Pantoprazole 40 Mg Tablet PO 40 mg QAM FARHANA Administration Quetiapine Fumarate 200 mg 04/24/25 21:00 04/27/25 20:50 Quetiapine Fumarate 100 Mg Tablet PO 200 mg HS FARHANA Administration Rivaroxaban 2.5 mg 04/19/25 21:00 04/28/25 08:08 Rivaroxaban 2.5 Mg Tablet PO 2.5 mg Q12H FARHANA Administration Senna/Docusate Sodium 2 tab 04/21/25 08:19 Senna/Docusate Sodium Tablet PO BID PRN Constipation Sodium Chloride 20 ml 04/15/25 02:07 04/20/25 06:24 Central Line Flush IV PUSH 20 ml PRN PRN Administration after blood draws Tamsulosin HCl 0.4 mg 04/26/25 11:40 04/28/25 08:08 Tamsulosin Hcl 0.4 Mg Capsule PO 0.4 mg QAM FARHANA Administration Radiology Results: ITS Impressions Abdomen X-Ray 04/14/25 20:46 IMPRESSION: 1. Endotracheal tube and orogastric tube in expected positions. 2. Decreased left lung volume with elevation the left hemidiaphragm and patchy airspace opacities throughout the left lung which could represent atelectasis and/or pneumonia. 3. Pulmonary vascular congestion with increased interstitial pattern in the right perihilar region which could represent mild pulmonary edema and/or pneumonia. Head CT 04/15/25 08:50 IMPRESSION: 1. No acute intracranial abnormality. Modified Barium Swallow 04/22/25 11:21 IMPRESSION: Laryngeal penetration without aspiration with thin liquids which improved with chin tuck position and decreased bolus size. Please correlate with speech pathologist findings and specific feeding recommendations. Cervical Spine CT 04/24/25 08:34 IMPRESSION: No evidence for cervical spine fracture or traumatic subluxation. Multilevel degenerative changes of the cervical spine. Lumbar Spine CT 04/24/25 14:05 IMPRESSION: 1. Severe lower thoracic and lumbar spondylosis with multilevel central canal and bilateral neural foraminal narrowing. Chest X-Ray 04/27/25 18:21 Impression: CHF. Early basilar pneumonia suspected Labs Labs: Laboratory Results - last 24 hr 04/27/25 04/27/25 04/28/25 16:47 20:43 04:18 WBC 9.7 RBC 3.26 L Hgb 9.5 L Hct 31.3 L MCV 96.0 MCH 29.1 MCHC 30.4 L RDW 15.5 H Plt Count 84 L MPV 12.2 H Immature Gran % (Auto) 0.4 Neut % (Auto) 77.3 H Lymph % (Auto) 11.9 L [place] % (Auto) 7.2 Eos % (Auto) 2.9 Baso % (Auto) 0.3 Lymph # (Auto) 1.15 [place] # (Auto) 0.7 H Eos # (Auto) 0.3 Baso # (Auto) 0.0 Abs Immat Gran (auto) 0.04 H Absolute Neuts (auto) 7.5 H Absolute Nucleated RBC 0.000 Nucleated RBC % 0.0 % Immature Plt Fraction 4.3 Sodium 145 Potassium 4.0 Chloride 113 H Carbon Dioxide 25 Anion Gap 7 BUN 29 H D Creatinine 1.02 H Estim Creat Clear Calc 70 Estimated GFR 54 L Glucose 185 H POC Capillary Glucose 179 H 176 H Calcium 9.1 Magnesium 2.4 H Total Bilirubin 0.5 AST 40 H ALT 25 Alkaline Phosphatase 120 Total Protein 5.6 L Albumin 2.9 L 04/28/25 07:41 WBC RBC Hgb Hct MCV MCH MCHC RDW Plt Count MPV Immature Gran % (Auto) Neut % (Auto) Lymph % (Auto) [place] % (Auto) Eos % (Auto) Baso % (Auto) Lymph # (Auto) [place] # (Auto) Eos # (Auto) Baso # (Auto) Abs Immat Gran (auto) Absolute Neuts (auto) Absolute Nucleated RBC Nucleated RBC % % Immature Plt Fraction Sodium Potassium Chloride Carbon Dioxide Anion Gap BUN Creatinine Estim Creat Clear Calc Estimated GFR Glucose POC Capillary Glucose 168 H Calcium Magnesium Total Bilirubin AST ALT Alkaline Phosphatase Total Protein Albumin Quality VTE Prophylaxis VTE prophylaxis: pharmacologic ordered
[2025-04-28] MEDS: SENNA/DOCUSATE SODIUM TABLET 2 TAB PO (12:37)
--- NOTE | 2025-04-28 15:53 | P.PNUR_ITS ---
Progress Note: A&P Assessment and Plan (1) Intentional overdose of calcium-channel ryne: Code(s): T46.1X2A - Poisoning by calcium-channel blockers, intentional self-harm, initial encounter Status: Acute (2) Aspiration pneumonia: Qualifiers: Aspiration pneumonia type: unspecified Laterality: unspecified laterality Lung location: unspecified part of lung Qualified Code(s): J69.0 - Pneumonitis due to inhalation of food and vomit Code(s): J69.0 - Pneumonitis due to inhalation of food and vomit Status: Acute (3) Urinary retention: Code(s): R33.9 - Retention of urine, unspecified Status: Acute Plan Maintin indwelling Olvera. Void trial in AM. Ok to use PureWick/incontinence briefs. Brenda-lift dependent, nonambulatory. -minimize narcotics/anticholinergics/sedatives - recommend scheduled bowel regimen Subjective Subjective Date/Time Seen: 04/28/25 15:53 Interval history: NAEO; afebrile Patient OOB to chair, no distress Olvera draining yellow urine, patient wants it removed Incontinent at baseline Exam Const: General: comfortable and no acute distress HENMT: Face/Nose/Sinus: Normal nares present Eyes: General: appearance normal, both eyes and all related structures Resp: Effort & Inspection: normal respiratory effort GI: Inspection: non-distended Urinary Catheter: Urinary Catheter: patent and draining and urine clear Neuro: Speech: normal speech Extrem: General: normal to inspection Psych: Other: Pleasant, normal affect Objective Data Vital Signs Vital Signs: Vital Signs - 24 hr 04/27/25 20:00 04/27/25 20:05 04/27/25 20:06 Temperature Pulse Rate 70 Respiratory Rate 18 Blood Pressure Pulse Oximetry 92 Oxygen Delivery Room Air Room Air 04/27/25 20:17 04/27/25 20:37 04/28/25 01:54 Temperature 98.1 F Pulse Rate 68 73 72 Respiratory Rate 18 18 18 Blood Pressure 142/46 H Pulse Oximetry 92 Oxygen Delivery 04/28/25 02:02 04/28/25 05:10 04/28/25 07:59 Temperature 97.7 F Pulse Rate 70 68 67 Respiratory Rate 18 18 18 Blood Pressure 164/44 H Pulse Oximetry 90 Oxygen Delivery 04/28/25 08:00 04/28/25 08:06 04/28/25 08:08 Temperature Pulse Rate 63 67 Respiratory Rate 18 18 Blood Pressure Pulse Oximetry 94 Oxygen Delivery Room Air Room Air 04/28/25 14:25 04/28/25 15:10 04/28/25 15:19 Temperature 98.2 F Pulse Rate 66 62 72 Respiratory Rate 19 18 18 Blood Pressure 147/44 H Pulse Oximetry 96 Oxygen Delivery Intake/Output Intake/Output: Intake & Output 04/25/25 04/26/25 04/27/25 04/28/25 23:59 23:59 23:59 23:59 Intake Total 2090 2460 1210 420 Output Total 2700 2300 2725 750 Balance -610 160 -1515 -330 Meds/Results Medications: Active Medications Generic Name Dose Route Start Last Admin Trade Name Freq PRN Reason Stop Dose Admin Acetaminophen 650 mg 04/23/25 14:09 04/27/25 14:38 Acetaminophen 325 Mg Tablet PO 650 mg Q4H PRN Administration Mild Pain (1-3) or Fever Albuterol/Ipratropium 3 ml 04/15/25 07:30 04/28/25 15:09 Ipratropium 0.5 Mg/Albuterol Sulfate 2.5 Mg Ampul.Neb 3 Ml INHALATION 3 ml Q6HRT FARHANA Administration Amlodipine Besylate 10 mg 04/21/25 09:00 04/28/25 08:08 Amlodipine Besylate 10 Mg Tablet PO 10 mg DAILY FARHANA Administration Aspirin 81 mg 04/19/25 14:30 04/28/25 08:08 Aspirin 81 Mg Enteric Tablet PO 81 mg DAILY FARHANA Administration Atorvastatin Calcium 80 mg 04/19/25 14:30 04/28/25 08:08 Atorvastatin 40 Mg Tablet PO 80 mg DAILY FARHANA Administration Baclofen 10 mg 04/21/25 08:19 04/26/25 14:12 Baclofen 10 Mg Tablet PO 10 mg TID PRN Administration Muscle Spasm Calcium Carbonate 500 mg 04/21/25 09:00 04/28/25 08:23 Calcium Carbonate (Oscal) 500 Mg Tablet PO 500 mg QAM FARHANA Administration Clopidogrel Bisulfate 75 mg 04/19/25 14:30 04/28/25 08:08 Clopidogrel Bisulfate 75 Mg Tablet PO 75 mg DAILY FARHANA Administration Dextrose 12.5 gm 04/23/25 13:05 Dextrose 50% 25 Gm/50 Ml Syringe IV PUSH PRN PRN Hypoglycemia Protocol Duloxetine HCl 60 mg 04/19/25 14:30 04/28/25 08:08 Duloxetine Hcl 60 Mg Capsule.Dr PO 60 mg QAM FARHANA Administration Ezetimibe 10 mg 04/19/25 14:30 04/28/25 08:08 Ezetimibe 10 Mg Tablet PO 10 mg DAILY FARHANA Administration Empagliflozin 25 mg 04/19/25 14:35 04/28/25 08:08 Empagliflozin 25 Mg Tablet PO 05/20/25 14:34 25 mg DAILY FARHANA Administration Gabapentin 300 mg 04/21/25 21:10 04/28/25 15:13 Gabapentin 300 Mg Capsule PO 300 mg 0900,1400,2100 FARHANA Administration Glucagon 1 mg 04/23/25 13:05 Glucagon For Inj 1 Mg Vial IM PRN PRN Hypoglycemia Protocol Glucose 15 gm 04/23/25 13:05 Glucose Oral Gel 15 Gm Of Glucse In 37.5 Gm Tube PO PRN PRN Hypoglycemia Protocol Hydralazine HCl 10 mg 04/18/25 11:43 04/21/25 18:31 Hydralazine Hcl 20 Mg/Ml Vial IV PUSH 10 mg Q4H PRN Administration Blood Pressure - High Hydralazine HCl 50 mg 04/19/25 14:00 04/28/25 15:13 Hydralazine Hcl 50 Mg Tablet PO 50 mg 0900,1400,2100 FARHANA Administration Hydrochlorothiazide 12.5 mg 04/28/25 12:15 04/28/25 12:37 Hydrochlorothiazide 12.5 Mg Capsule PO 12.5 mg QAM FARHANA Administration Dextrose 1,000 mls @ 100 mls/hr 04/23/25 13:05 Dextrose 5% 1,000 Ml IVPB PRN PRN Hypoglycemia Protocol Insulin Aspart 7 units 04/23/25 17:00 04/28/25 12:37 Insulin Aspart (*Bkc) 100 Units/Ml 0.05 units/kg (7 units) 7 units SUB-Q Administration [facility] Insulin Glargine 20 units 04/23/25 13:10 04/28/25 08:07 Insulin Glargine (*Bkc) 100 Units/Ml 0.15 units/kg (20 units) 20 units SUB-Q Administration DAILY FARHANA Labetalol HCl 10 mg 04/20/25 11:43 Labetalol Hcl Inj 100 Mg/20 Ml Vial IV PUSH BID PRN Blood Pressure - High Lidocaine 1 patch 04/21/25 18:00 04/28/25 08:07 Lidocaine 5% Patch TRANSDERM 1 patch DAILY FARHANA Administration Losartan Potassium 100 mg 04/21/25 09:00 04/28/25 08:08 Losartan Potassium 100 Mg Tablet PO 100 mg DAILY FARHANA Administration Melatonin 5 mg 04/21/25 21:00 04/27/25 20:51 Melatonin 5 Mg Tablet PO 5 mg HS FARHANA Administration Pantoprazole Sodium 40 mg 04/24/25 09:00 04/28/25 08:08 Pantoprazole 40 Mg Tablet PO 40 mg QAM FARHANA Administration Quetiapine Fumarate 200 mg 04/24/25 21:00 04/27/25 20:50 Quetiapine Fumarate 100 Mg Tablet PO 200 mg HS FARHANA Administration Rivaroxaban 2.5 mg 04/19/25 21:00 04/28/25 08:08 Rivaroxaban 2.5 Mg Tablet PO 2.5 mg Q12H FARHANA Administration Senna/Docusate Sodium 2 tab 04/21/25 08:19 04/28/25 12:37 Senna/Docusate Sodium Tablet PO 2 tab BID PRN Administration Constipation Sodium Chloride 20 ml 04/15/25 02:07 04/20/25 06:24 Central Line Flush IV PUSH 20 ml PRN PRN Administration after blood draws Tamsulosin HCl 0.4 mg 04/26/25 11:40 04/28/25 08:08 Tamsulosin Hcl 0.4 Mg Capsule PO 0.4 mg QAM FARHANA Administration Radiology Results: ITS Impressions Abdomen X-Ray 04/14/25 20:46 IMPRESSION: 1. Endotracheal tube and orogastric tube in expected positions. 2. Decreased left lung volume with elevation the left hemidiaphragm and patchy airspace opacities throughout the left lung which could represent atelectasis and/or pneumonia. 3. Pulmonary vascular congestion with increased interstitial pattern in the right perihilar region which could represent mild pulmonary edema and/or pneumonia. Head CT 04/15/25 08:50 IMPRESSION: 1. No acute intracranial abnormality. Cervical Spine CT 04/24/25 08:34 IMPRESSION: No evidence for cervical spine fracture or traumatic subluxation. Multilevel degenerative changes of the cervical spine. Lumbar Spine CT 04/24/25 14:05 IMPRESSION: 1. Severe lower thoracic and lumbar spondylosis with multilevel central canal and bilateral neural foraminal narrowing. Chest X-Ray 04/27/25 18:21 Impression: CHF. Early basilar pneumonia suspected Modified Barium Swallow 04/28/25 14:53 IMPRESSION: Virtual dysphagia with trace laryngeal penetration without aspiration with thin liquids. Please correlate with speech pathologist findings and specific feeding recommendations. Labs Labs: Laboratory Results - last 24 hr 04/27/25 04/27/25 04/28/25 16:47 20:43 04:18 WBC 9.7 RBC 3.26 L Hgb 9.5 L Hct 31.3 L MCV 96.0 MCH 29.1 MCHC 30.4 L RDW 15.5 H Plt Count 84 L MPV 12.2 H Immature Gran % (Auto) 0.4 Neut % (Auto) 77.3 H Lymph % (Auto) 11.9 L [place] % (Auto) 7.2 Eos % (Auto) 2.9 Baso % (Auto) 0.3 Lymph # (Auto) 1.15 [place] # (Auto) 0.7 H Eos # (Auto) 0.3 Baso # (Auto) 0.0 Abs Immat Gran (auto) 0.04 H Absolute Neuts (auto) 7.5 H Absolute Nucleated RBC 0.000 Nucleated RBC % 0.0 % Immature Plt Fraction 4.3 Sodium 145 Potassium 4.0 Chloride 113 H Carbon Dioxide 25 Anion Gap 7 BUN 29 H D Creatinine 1.02 H Estim Creat Clear Calc 70 Estimated GFR 54 L Glucose 185 H POC Capillary Glucose 179 H 176 H Calcium 9.1 Magnesium 2.4 H Total Bilirubin 0.5 AST 40 H ALT 25 Alkaline Phosphatase 120 Total Protein 5.6 L Albumin 2.9 L 04/28/25 04/28/25 07:41 11:46 WBC RBC Hgb Hct MCV MCH MCHC RDW Plt Count MPV Immature Gran % (Auto) Neut % (Auto) Lymph % (Auto) [place] % (Auto) Eos % (Auto) Baso % (Auto) Lymph # (Auto) [place] # (Auto) Eos # (Auto) Baso # (Auto) Abs Immat Gran (auto) Absolute Neuts (auto) Absolute Nucleated RBC Nucleated RBC % % Immature Plt Fraction Sodium Potassium Chloride Carbon Dioxide Anion Gap BUN Creatinine Estim Creat Clear Calc Estimated GFR Glucose POC Capillary Glucose 168 H 169 H Calcium Magnesium Total Bilirubin AST ALT Alkaline Phosphatase Total Protein Albumin
--- NOTE | 2025-04-28 16:20 | PCSTNOTE ---
Please refer to the Modified Barium Swallow Evaluation in the EMR. The patient is a 69 year old female seen for a repeat MBS Study. The original MBS was completed 04-22-25 with recommendations for small controlled bites and drinks, chin tuck posture, and minced and moist diet. The patient has had a change in swallow function and medical status and a repeat MBS was requested based on the most recent BSE. The patient was seen in a lateral view and presented the following consistencies: 5cc/tsp thin liquid barium, straw amounts thin liquid barium, straw amounts mildly thick liquid barium, pudding mixed with barium paste, and cracker coated with barium. Oral Stage: Timely oral preparation with all consistencies. Additional time required for mastication of solids due to patient is edentulous. Pharyngeal Stage: The When presented thin liquid via straw the patient was viewed to have flash to trace laryngeal penetration during the swallow. Penetrated material was ejected with completion of the swallow. Penetration was secondary to reduced laryngeal elevation. Laryngeal penetration was reduced with a chin-flexed position during the swallow and small controlled bolus drinks. However still flash penetration viewed intermittently. Penetration consistently eliminated with small drinks of mildly thick liquid and chin tuck posture. The patient was independent in use of the chin tuck posture. No aspiration or penetration noted with pudding and cracker trials. In addition no residual viewed to remain in the vallecula or pyriform sinus for all trials completed. Recommend 1. Minced and Moist Diet/Level 5 2. Mildly Thick liquid/Level 2 3. Upright with meals 4. Frequent Observation 5. Small drinks and bites. 6. Chin tuck posture all bites and drinks 7. Speech services for tongue base retraction exercises and laryngeal elevation. [ End ]
[2025-04-28] MEDS: MELATONIN 5 MG TABLET PO (20:30)
--- NOTE | 2025-04-28 21:22 | WNDPHOTO ---
PHOTO ONLY - See Nursing Notes and/ or assessments for documentation.
[2025-04-29] VITALS (13 sets, daily range): BP systolic 132–176; BP diastolic 41–46; PULSE 58–72; RESP 15–20; TEMP 36.3–37.1; O2SAT 93–100
[2025-04-29] MEDS: IPRATROPIUM 0.5 MG/ALBUTEROL SULFATE 2.5 MG AMPUL.NEB 3 ML INHALATION ×4 (02:04→19:47)
[2025-04-29] MEDS: ACETAMINOPHEN 325 MG TABLET 650 MG PO (02:22)
[2025-04-29] MEDS: PANTOPRAZOLE 40 MG TABLET PO (08:53)
[2025-04-29] MEDS: CALCIUM CARBONATE (OSCAL) 500 MG TABLET PO (08:53)
[2025-04-29] MEDS: ASPIRIN 81 MG ENTERIC TABLET PO (08:53)
[2025-04-29] MEDS: EMPAGLIFLOZIN 25 MG TABLET PO (08:53)
[2025-04-29] MEDS: ATORVASTATIN 40 MG TABLET 80 MG PO (08:53)
[2025-04-29] MEDS: GABAPENTIN 300 MG CAPSULE PO ×3 (08:53→21:06)
[2025-04-29] MEDS: LOSARTAN POTASSIUM 100 MG TABLET PO (08:54)
[2025-04-29] MEDS: TAMSULOSIN HCL 0.4 MG CAPSULE PO (08:54)
[2025-04-29] MEDS: RIVAROXABAN 2.5 MG TABLET PO ×2 (08:54→21:06)
[2025-04-29] MEDS: CLOPIDOGREL BISULFATE 75 MG TABLET PO (08:54)
[2025-04-29] MEDS: EZETIMIBE 10 MG TABLET PO (08:54)
[2025-04-29] MEDS: DULoxetine HCL 60 MG CAPSULE.DR PO (08:54)
[2025-04-29] MEDS: BACLOFEN 10 MG TABLET PO (08:54)
[2025-04-29] MEDS: INSULIN GLARGINE (*BKC) 100 UNITS/ML 20 UNITS SUB-Q (08:55)
[2025-04-29] MEDS: INSULIN ASPART (*BKC) 100 UNITS/ML 7 UNITS SUB-Q ×3 (08:55→17:46)
--- NOTE | 2025-04-29 12:19 | P.PNUR_ITS ---
Progress Note: A&P Assessment and Plan (1) Urinary retention: Code(s): R33.9 - Retention of urine, unspecified Status: Acute Plan - Post void residual to evaluate bladder emptying - Recommend catheter replacement for elevated PVR > 175 ml - Minimize narcotics/anticholinergics/sedatives - Recommend scheduled bowel regimen Subjective Subjective Date/Time Seen: 04/29/25 12:19 NAEO; Olvera catheter removed at 0600 this morning. Pt has not sensed any voids at this time; minimal sensation at home when voiding into diaper. Denies suprapubic pain. Review of Systems Constitutional: Constitutional: Reports no additional constitutional complaints Eyes: Eyes: Reports as per HPI ENT: Reports system reviewed and no additional complaints, except as documented Cardiovascular: Cardiovascular: Reports no additional cardiovascular complaints Respiratory: Respiratory: Reports as per HPI Gastrointestinal: Gastrointestinal: Reports constipation Genitourinary: Genitourinary: Reports no additional female genitourinary complaints Exam Const: General: comfortable and no acute distress HENMT: Face/Nose/Sinus: Normal nares present Eyes: General: appearance normal, both eyes and all related structures Resp: Effort & Inspection: normal respiratory effort GI: Inspection: non-distended Urinary Catheter: Urinary Catheter: patent and draining and urine clear Neuro: Speech: normal speech Extrem: General: normal to inspection Psych: Other: Pleasant, normal affect Objective Data Vital Signs Vital Signs: Vital Signs - 24 hr 04/28/25 14:25 04/28/25 15:10 04/28/25 15:19 Temperature 36.8 C Pulse Rate 66 62 72 Respiratory Rate 19 18 18 Blood Pressure 147/44 H Pulse Oximetry 96 Oxygen Delivery 04/28/25 19:29 04/28/25 19:50 04/28/25 19:56 Temperature 36.4 C Pulse Rate 67 70 70 Respiratory Rate 20 20 18 Blood Pressure 145/48 H Pulse Oximetry 99 Oxygen Delivery 04/28/25 20:00 04/29/25 02:06 04/29/25 02:14 Temperature Pulse Rate 68 72 Respiratory Rate 20 20 Blood Pressure Pulse Oximetry Oxygen Delivery Room Air 04/29/25 04:45 04/29/25 08:13 04/29/25 08:14 Temperature 36.6 C Pulse Rate 62 68 68 Respiratory Rate 18 18 20 Blood Pressure 139/46 L Pulse Oximetry 94 93 Oxygen Delivery Room Air 04/29/25 08:55 Temperature Pulse Rate Respiratory Rate Blood Pressure Pulse Oximetry Oxygen Delivery Room Air Intake/Output Intake/Output: Intake & Output 04/26/25 04/27/25 04/28/25 04/29/25 23:59 23:59 23:59 23:59 Intake Total 2460 1210 900 120 Output Total 2300 2725 2050 750 Balance 073 -1515 -1150 -630 Meds/Results Medications: Active Medications Generic Name Dose Route Start Last Admin Trade Name Freq PRN Reason Stop Dose Admin Acetaminophen 650 mg 04/23/25 14:09 04/29/25 02:22 Acetaminophen 325 Mg Tablet PO 650 mg Q4H PRN Administration Mild Pain (1-3) or Fever Albuterol/Ipratropium 3 ml 04/15/25 07:30 04/29/25 08:11 Ipratropium 0.5 Mg/Albuterol Sulfate 2.5 Mg Ampul.Neb 3 Ml INHALATION 3 ml Q6HRT FARHANA Administration Amlodipine Besylate 10 mg 04/21/25 09:00 04/29/25 09:06 Amlodipine Besylate 10 Mg Tablet PO Not Given DAILY FARHANA Aspirin 81 mg 04/19/25 14:30 04/29/25 08:53 Aspirin 81 Mg Enteric Tablet PO 81 mg DAILY FARHANA Administration Atorvastatin Calcium 80 mg 04/19/25 14:30 04/29/25 08:53 Atorvastatin 40 Mg Tablet PO 80 mg DAILY FARHANA Administration Baclofen 10 mg 04/21/25 08:19 04/29/25 08:54 Baclofen 10 Mg Tablet PO 10 mg TID PRN Administration Muscle Spasm Calcium Carbonate 500 mg 04/21/25 09:00 04/29/25 08:53 Calcium Carbonate (Oscal) 500 Mg Tablet PO 500 mg QAM FARHANA Administration Clopidogrel Bisulfate 75 mg 04/19/25 14:30 04/29/25 08:54 Clopidogrel Bisulfate 75 Mg Tablet PO 75 mg DAILY FARHANA Administration Dextrose 12.5 gm 04/23/25 13:05 Dextrose 50% 25 Gm/50 Ml Syringe IV PUSH PRN PRN Hypoglycemia Protocol Duloxetine HCl 60 mg 04/19/25 14:30 04/29/25 08:54 Duloxetine Hcl 60 Mg Capsule.Dr PO 60 mg QAM FARHANA Administration Ezetimibe 10 mg 04/19/25 14:30 04/29/25 08:54 Ezetimibe 10 Mg Tablet PO 10 mg DAILY FARHANA Administration Empagliflozin 25 mg 04/19/25 14:35 04/29/25 08:53 Empagliflozin 25 Mg Tablet PO 05/20/25 14:34 25 mg DAILY FARHANA Administration Gabapentin 300 mg 04/21/25 21:10 04/29/25 08:53 Gabapentin 300 Mg Capsule PO 300 mg 0900,1400,2100 FARHANA Administration Glucagon 1 mg 04/23/25 13:05 Glucagon For Inj 1 Mg Vial IM PRN PRN Hypoglycemia Protocol Glucose 15 gm 04/23/25 13:05 Glucose Oral Gel 15 Gm Of Glucse In 37.5 Gm Tube PO PRN PRN Hypoglycemia Protocol Hydralazine HCl 10 mg 04/18/25 11:43 04/21/25 18:31 Hydralazine Hcl 20 Mg/Ml Vial IV PUSH 10 mg Q4H PRN Administration Blood Pressure - High Hydralazine HCl 50 mg 04/19/25 14:00 04/29/25 09:05 Hydralazine Hcl 50 Mg Tablet PO Not Given 0900,1400,2100 [facility] Hydrochlorothiazide 12.5 mg 04/28/25 12:15 04/29/25 09:01 Hydrochlorothiazide 12.5 Mg Capsule PO 12.5 mg QAM FARHANA Administration Dextrose 1,000 mls @ 100 mls/hr 04/23/25 13:05 Dextrose 5% 1,000 Ml IVPB PRN PRN Hypoglycemia Protocol Insulin Aspart 7 units 04/23/25 17:00 04/29/25 08:55 Insulin Aspart (*Bkc) 100 Units/Ml 0.05 units/kg (7 units) 7 units SUB-Q Administration [facility]ID[facility] Insulin Glargine 20 units 04/23/25 13:10 04/29/25 08:55 Insulin Glargine (*Bkc) 100 Units/Ml 0.15 units/kg (20 units) 20 units SUB-Q Administration DAILY FARHANA Labetalol HCl 10 mg 04/20/25 11:43 Labetalol Hcl Inj 100 Mg/20 Ml Vial IV PUSH BID PRN Blood Pressure - High Lidocaine 1 patch 04/21/25 18:00 04/29/25 08:54 Lidocaine 5% Patch TRANSDERM Not Given DAILY [facility] Losartan Potassium 100 mg 04/21/25 09:00 04/29/25 08:54 Losartan Potassium 100 Mg Tablet PO 100 mg DAILY FARHANA Administration Melatonin 5 mg 04/21/25 21:00 04/28/25 20:30 Melatonin 5 Mg Tablet PO 5 mg HS FARHANA Administration Pantoprazole Sodium 40 mg 04/24/25 09:00 04/29/25 08:53 Pantoprazole 40 Mg Tablet PO 40 mg QAM FARHANA Administration Quetiapine Fumarate 200 mg 04/24/25 21:00 04/28/25 20:28 Quetiapine Fumarate 100 Mg Tablet PO 200 mg HS FARHANA Administration Rivaroxaban 2.5 mg 04/19/25 21:00 04/29/25 08:54 Rivaroxaban 2.5 Mg Tablet PO 2.5 mg Q12H FARHANA Administration Senna/Docusate Sodium 2 tab 04/21/25 08:19 04/28/25 12:37 Senna/Docusate Sodium Tablet PO 2 tab BID PRN Administration Constipation Sodium Chloride 20 ml 04/15/25 02:07 04/20/25 06:24 Central Line Flush IV PUSH 20 ml PRN PRN Administration after blood draws Tamsulosin HCl 0.4 mg 04/26/25 11:40 04/29/25 08:54 Tamsulosin Hcl 0.4 Mg Capsule PO 0.4 mg QAM FARHANA Administration Radiology Results: ITS Impressions Abdomen X-Ray 04/14/25 20:46 IMPRESSION: 1. Endotracheal tube and orogastric tube in expected positions. 2. Decreased left lung volume with elevation the left hemidiaphragm and patchy airspace opacities throughout the left lung which could represent atelectasis and/or pneumonia. 3. Pulmonary vascular congestion with increased interstitial pattern in the right perihilar region which could represent mild pulmonary edema and/or pneumonia. Head CT 04/15/25 08:50 IMPRESSION: 1. No acute intracranial abnormality. Cervical Spine CT 04/24/25 08:34 IMPRESSION: No evidence for cervical spine fracture or traumatic subluxation. Multilevel degenerative changes of the cervical spine. Lumbar Spine CT 04/24/25 14:05 IMPRESSION: 1. Severe lower thoracic and lumbar spondylosis with multilevel central canal and bilateral neural foraminal narrowing. Chest X-Ray 04/27/25 18:21 Impression: CHF. Early basilar pneumonia suspected Modified Barium Swallow 04/28/25 14:53 IMPRESSION: Virtual dysphagia with trace laryngeal penetration without aspiration with thin liquids. Please correlate with speech pathologist findings and specific feeding recommendations. Labs Labs: Laboratory Results - last 24 hr 04/28/25 04/28/25 04/29/25 16:35 19:55 07:50 POC Capillary Glucose 168 H 201 H 166 H 04/29/25 11:38 POC Capillary Glucose 179 H
--- NOTE | 2025-04-29 12:24 | PC.NURSE ---
Patient refusing thickened liquids as recommended by ST. Educated on risks of aspiration. MD notified. Thin liquids given to patient.
--- NOTE | 2025-04-29 15:47 | P.PNIM_ITS ---
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 Urology recommendations appreciated. Olvera replaced and to remain. Advised to follow-up with tertiary center for retention, likely related to her polyneuropathy. Polyneuropathy, only slightly improved. Cannot obtain MRI as body habitus precludes imaging here. Consult Neurology for their opinion. Patient wishes to be DNR. Continue SHOW GIRL Xarelto Normal saline at 75 cc/hour. Subjective Date/time seen: 04/29/25 15:47 Interval history: No major acute overnight events. Patient refuses to follow modified diet guidelines for her dysphagia. She understands the risk of aspiration including morbidity and mortality. She continues to want to be DNR. She feels her weakness is slightly improving but generally severely weak and can only twist her wrist but not bend them. She has trivial motor function in her lower extremities. Feels she is breathing fine but dehydrated and would like fluids. Review of Systems Review of Systems: All systems reviewed & are unremarkable except as noted in HPI and below (Subjective) Exam Const: General: comfortable and no acute distress Other: A&O x3 HENMT: Mouth: Yes dry mucous membranes Resp: Effort & Inspection: normal respiratory effort Auscultation: clear to auscultation bilaterally Cardio: Rate: regular rate Rhythm: regular rhythm GI: Inspection: non-distended GI Palp: Yes Soft to palpation Skin: Other: Poor skin turgor Neuro: Other: 1/5 motor strength at the bilateral elbo ws and bilateral hips. Extrem: General: edema (Trace pitting edema bilateral lower extremities) Objective Data Vital Signs Vital Signs: Vital Signs - 24 hr 04/28/25 19:29 04/28/25 19:50 04/28/25 19:56 Temperature 97.6 F Pulse Rate 67 70 70 Respiratory Rate 20 20 18 Blood Pressure 145/48 H Pulse Oximetry 99 Oxygen Delivery 04/28/25 20:00 04/29/25 02:06 04/29/25 02:14 Temperature Pulse Rate 68 72 Respiratory Rate 20 20 Blood Pressure Pulse Oximetry Oxygen Delivery Room Air 04/29/25 04:45 04/29/25 08:13 04/29/25 08:14 Temperature 97.9 F Pulse Rate 62 68 68 Respiratory Rate 18 18 20 Blood Pressure 139/46 L Pulse Oximetry 94 93 Oxygen Delivery Room Air 04/29/25 08:55 04/29/25 13:15 04/29/25 13:24 Temperature Pulse Rate 70 72 Respiratory Rate 20 20 Blood Pressure Pulse Oximetry Oxygen Delivery Room Air 04/29/25 14:00 Temperature 98.8 F Pulse Rate 63 Respiratory Rate 15 Blood Pressure 132/41 L Pulse Oximetry 100 Oxygen Delivery Intake/Output Intake/Output: Intake & Output 04/26/25 04/27/25 04/28/25 04/29/25 23:59 23:59 23:59 23:59 Intake Total 2460 1210 900 600 Output Total 2300 2725 2050 750 Balance 160 -1515 -1150 -150 Meds/Results Medications: Active Medications Generic Name Dose Route Start Last Admin Trade Name Melina PRN Reason Stop Dose Admin Acetaminophen 650 mg 04/23/25 14:09 04/29/25 02:22 Acetaminophen 325 Mg Tablet PO 650 mg Q4H PRN Administration Mild Pain (1-3) or Fever Albuterol/Ipratropium 3 ml 04/15/25 07:30 04/29/25 13:21 Ipratropium 0.5 Mg/Albuterol Sulfate 2.5 Mg Ampul.Neb 3 Ml INHALATION 3 ml Q6HRT FARHANA Administration Amlodipine Besylate 10 mg 04/21/25 09:00 04/29/25 09:06 Amlodipine Besylate 10 Mg Tablet PO Not Given DAILY [facility] Aspirin 81 mg 04/19/25 14:30 04/29/25 08:53 Aspirin 81 Mg Enteric Tablet PO 81 mg DAILY FARHANA Administration Atorvastatin Calcium 80 mg 04/19/25 14:30 04/29/25 08:53 Atorvastatin 40 Mg Tablet PO 80 mg DAILY FARHANA Administration Baclofen 10 mg 04/21/25 08:19 04/29/25 08:54 Baclofen 10 Mg Tablet PO 10 mg TID PRN Administration Muscle Spasm Calcium Carbonate 500 mg 04/21/25 09:00 04/29/25 08:53 Calcium Carbonate (Oscal) 500 Mg Tablet PO 500 mg QAM FARHANA Administration Clopidogrel Bisulfate 75 mg 04/19/25 14:30 04/29/25 08:54 Clopidogrel Bisulfate 75 Mg Tablet PO 75 mg DAILY FARHANA Administration Dextrose 12.5 gm 04/23/25 13:05 Dextrose 50% 25 Gm/50 Ml Syringe IV PUSH PRN PRN Hypoglycemia Protocol Duloxetine HCl 60 mg 04/19/25 14:30 04/29/25 08:54 Duloxetine Hcl 60 Mg Capsule.Dr PO 60 mg QAM FARHANA Administration Ezetimibe 10 mg 04/19/25 14:30 04/29/25 08:54 Ezetimibe 10 Mg Tablet PO 10 mg DAILY FARHANA Administration Empagliflozin 25 mg 04/19/25 14:35 04/29/25 08:53 Empagliflozin 25 Mg Tablet PO 05/20/25 14:34 25 mg DAILY FARHANA Administration Gabapentin 300 mg 04/21/25 21:10 04/29/25 08:53 Gabapentin 300 Mg Capsule PO 300 mg 0900,1400,2100 FARHANA Administration Glucagon 1 mg 04/23/25 13:05 Glucagon For Inj 1 Mg Vial IM PRN PRN Hypoglycemia Protocol Glucose 15 gm 04/23/25 13:05 Glucose Oral Gel 15 Gm Of Glucse In 37.5 Gm Tube PO PRN PRN Hypoglycemia Protocol Hydralazine HCl 10 mg 04/18/25 11:43 04/21/25 18:31 Hydralazine Hcl 20 Mg/Ml Vial IV PUSH 10 mg Q4H PRN Administration Blood Pressure - High Hydralazine HCl 50 mg 04/19/25 14:00 04/29/25 09:05 Hydralazine Hcl 50 Mg Tablet PO Not Given 0900,1400,2100 FARHANA Hydrochlorothiazide 12.5 mg 04/28/25 12:15 04/29/25 09:01 Hydrochlorothiazide 12.5 Mg Capsule PO 12.5 mg QAM FARHANA Administration Dextrose 1,000 mls @ 100 mls/hr 04/23/25 13:05 Dextrose 5% 1,000 Ml IVPB PRN PRN Hypoglycemia Protocol Sodium Chloride 1,000 mls @ 75 mls/hr 04/29/25 15:50 Normal Saline Iv IV CONT .[id number] FARHANA Insulin Aspart 7 units 04/23/25 17:00 04/29/25 12:57 Insulin Aspart (*Bkc) 100 Units/Ml 0.05 units/kg (7 units) 7 units SUB-Q Administration TIDWM FARHANA Insulin Glargine 20 units 04/23/25 13:10 04/29/25 08:55 Insulin Glargine (*Bkc) 100 Units/Ml 0.15 units/kg (20 units) 20 units SUB-Q Administration DAILY FARHANA Labetalol HCl 10 mg 04/20/25 11:43 Labetalol Hcl Inj 100 Mg/20 Ml Vial IV PUSH BID PRN Blood Pressure - High Lidocaine 1 patch 04/21/25 18:00 04/29/25 08:54 Lidocaine 5% Patch TRANSDERM Not Given DAILY FARHANA Losartan Potassium 100 mg 04/21/25 09:00 04/29/25 08:54 Losartan Potassium 100 Mg Tablet PO 100 mg DAILY FARHANA Administration Melatonin 5 mg 04/21/25 21:00 04/28/25 20:30 Melatonin 5 Mg Tablet PO 5 mg HS FARHANA Administration Pantoprazole Sodium 40 mg 04/24/25 09:00 04/29/25 08:53 Pantoprazole 40 Mg Tablet PO 40 mg QAM FARHANA Administration Quetiapine Fumarate 200 mg 04/24/25 21:00 04/28/25 20:28 Quetiapine Fumarate 100 Mg Tablet PO 200 mg HS FARHANA Administration Rivaroxaban 2.5 mg 04/19/25 21:00 04/29/25 08:54 Rivaroxaban 2.5 Mg Tablet PO 2.5 mg Q12H FARHANA Administration Senna/Docusate Sodium 2 tab 04/21/25 08:19 04/28/25 12:37 Senna/Docusate Sodium Tablet PO 2 tab BID PRN Administration Constipation Sodium Chloride 20 ml 04/15/25 02:07 04/20/25 06:24 Central Line Flush IV PUSH 20 ml PRN PRN Administration after blood draws Tamsulosin HCl 0.4 mg 04/26/25 11:40 04/29/25 08:54 Tamsulosin Hcl 0.4 Mg Capsule PO 0.4 mg QAM FARHANA Administration Radiology Results: ITS Impressions Abdomen X-Ray 04/14/25 20:46 IMPRESSION: 1. Endotracheal tube and orogastric tube in expected positions. 2. Decreased left lung volume with elevation the left hemidiaphragm and patchy airspace opacities throughout the left lung which could represent atelectasis and/or pneumonia. 3. Pulmonary vascular congestion with increased interstitial pattern in the right perihilar region which could represent mild pulmonary edema and/or pneumonia. Head CT 04/15/25 08:50 IMPRESSION: 1. No acute intracranial abnormality. Cervical Spine CT 04/24/25 08:34 IMPRESSION: No evidence for cervical spine fracture or traumatic subluxation. Multilevel degenerative changes of the cervical spine. Lumbar Spine CT 04/24/25 14:05 IMPRESSION: 1. Severe lower thoracic and lumbar spondylosis with multilevel central canal and bilateral neural foraminal narrowing. Chest X-Ray 04/27/25 18:21 Impression: CHF. Early basilar pneumonia suspected Modified Barium Swallow 04/28/25 14:53 IMPRESSION: Virtual dysphagia with trace laryngeal penetration without aspiration with thin liquids. Please correlate with speech pathologist findings and specific feeding recommendations. Labs Labs: Laboratory Results - last 24 hr 04/28/25 04/28/25 04/29/25 16:35 19:55 07:50 POC Capillary Glucose 168 H 201 H 166 H 04/29/25 11:38 POC Capillary Glucose 179 H
--- NOTE | 2025-04-29 15:58 | PC.NURSE ---
On 04/29/25, the student, [Reanna Cook], provided care and completed [facility] documentation on this patient. I have reviewed the student's documentation and agree with the findings.
[2025-04-29] MEDS: SODIUM CHLORIDE 0.9% IV 1,000 ML 75 ML IV CONT (17:48)
[2025-04-29] MEDS: MELATONIN 5 MG TABLET PO (21:07)
[2025-04-30] VITALS (10 sets, daily range): BP systolic 129–173; BP diastolic 42–49; PULSE 56–64; RESP 16–26; TEMP 36.3–36.9; O2SAT 91–98
[2025-04-30] MEDS: IPRATROPIUM 0.5 MG/ALBUTEROL SULFATE 2.5 MG AMPUL.NEB 3 ML INHALATION ×3 (02:06→13:04)
[2025-04-30 05:11] LABS: Hematocrit 30.2 % (37.0-47.0); Hemoglobin 9.2 g/dL (12.0-15.0); Immature Granulocyte Percent A 0.5 % (0-0.5); Lymphocytes Absolute Auto 1.46 K/mm3 (0.9-3.2); Mean Corpuscular HGB Conc 30.5 g/dl (32-36); Mean Corpuscular Hemoglobin 28.8 pg (26-34); Mean Corpuscular Volume 94.7 fl (80-100); Nucleated Red Blood Cells Absolute Auto 0.000 K/mm3 (0.0-0.012); Nucleated Red Blood Cells Perc 0.0 % (0.0-0.2); Platelet Count Result 110 k/mm3 (150-375); Red Blood Count 3.19 M/mm3 (4.2-5.4); White Blood Count 8.3 K/mm3 (4.5-10.0)
[2025-04-30 05:37] LABS: Anion Gap 6 mmol/L (4-12); Blood Urea Nitrogen 22 mg/dL (7-17); Calcium 8.7 mg/dL (8.4-10.2); Carbon Dioxide 24 mmol/L (22-30); Chloride 108 mmol/L (98-107); Estimated CRCL calculation 74 ml/min; Estimated Glomerular Filt Rate 58; Glucose 168 mg/dL (65-110); Magnesium 2.2 mg/dL (1.6-2.3); Potassium 3.8 mmol/L (3.4-5.0); Sodium 138 mmol/L (137-145)
[2025-04-30] MEDS: SODIUM CHLORIDE 0.9% IV 1,000 ML 75 ML IV CONT (06:48)
[2025-04-30] MEDS: EMPAGLIFLOZIN 25 MG TABLET PO (08:56)
[2025-04-30] MEDS: DULoxetine HCL 60 MG CAPSULE.DR PO (08:56)
[2025-04-30] MEDS: RIVAROXABAN 2.5 MG TABLET PO (08:56)
[2025-04-30] MEDS: EZETIMIBE 10 MG TABLET PO (08:57)
[2025-04-30] MEDS: GABAPENTIN 300 MG CAPSULE PO ×2 (08:57→13:17)
[2025-04-30] MEDS: BACLOFEN 10 MG TABLET PO (08:57)
[2025-04-30] MEDS: ASPIRIN 81 MG ENTERIC TABLET PO (08:57)
[2025-04-30] MEDS: CLOPIDOGREL BISULFATE 75 MG TABLET PO (08:57)
[2025-04-30] MEDS: ATORVASTATIN 40 MG TABLET 80 MG PO (08:57)
[2025-04-30] MEDS: PANTOPRAZOLE 40 MG TABLET PO (08:57)
[2025-04-30] MEDS: LOSARTAN POTASSIUM 100 MG TABLET PO (08:57)
[2025-04-30] MEDS: TAMSULOSIN HCL 0.4 MG CAPSULE PO (08:57)
[2025-04-30] MEDS: CALCIUM CARBONATE (OSCAL) 500 MG TABLET PO (08:57)
[2025-04-30] MEDS: INSULIN ASPART (*BKC) 100 UNITS/ML 7 UNITS SUB-Q ×2 (08:58→12:06)
[2025-04-30] MEDS: INSULIN GLARGINE (*BKC) 100 UNITS/ML 20 UNITS SUB-Q (08:58)
--- NOTE | 2025-04-30 12:11 | PCNFU ---
Nutrition Follow-Up Complete: Inadequate oral intake related to swallowing difficulties as evidenced by need for modified textures and thickened liquids, MBS Intakes >75% goal: Diet textures appropriate for patient needs Patient will continue current goal. Pt current nutrition is Minced and Moist, Level 5/ DBCC diet with Glucerna shakes BID. Nutrition recommendation: Michael BID Last recorded weight is 144.2 kg, up from 141.3 kg on admit. Bowel Motility: Last reported BM 04/28 Labs Reviewed:Glu 168, Alb 2.9, Hct 30.2, Hgb 9.2, BUN 22 Meds Noted: Protonix, Lantus, NovoLog Skin: Deep Tissue-sacrum Additional Notes: Patient remains on Minced and Moist, Level 5 diet today. Spoke with MD and nursing today regarding thickened liquids. Oral Intake's have been < 75% of meals. Patient is refusing thickened liquids. Speech today is recommending thin liquids. Diet orders changed per MD orders. Michael BID added for wound healing. Glucerna shake providing an additional 240 kcal and 8 gm protein. Will monitor swallowing ability, weight, labs, skin, diet orders, meds, every 5 days
--- NOTE | 2025-04-30 13:22 | WPDUROPN2 ---
Progress Note: A&P Assessment and Plan (1) Urinary retention: Code(s): R33.9 - Retention of urine, unspecified Status: Acute Plan - Olvera catheter replaced for being unable to urinate with a bladder volume of greater than 700ml. Retention has been an ongoing issue for this patient. We may At some point have to consider long-term solution such as an SP tube. - Minimize narcotics/anticholinergics/sedatives - Recommend scheduled bowel regimen Subjective Subjective Date/Time Seen: 04/30/25 13:22 Interval history: No major acute overnight events. patient failed voiding trial. She had greater than 700ml in her bladder after more than 6 hours of trial and so a catheter was replaced. It is draining clear yellow urine at this time. Review of Systems Constitutional: Constitutional: Reports no additional constitutional complaints Exam Const: General: comfortable and no acute distress HENMT: Face/Nose/Sinus: Normal nares present Eyes: General: appearance normal, both eyes and all related structures Resp: Effort & Inspection: normal respiratory effort GI: Inspection: non-distended Urinary Catheter: Urinary Catheter: patent and draining and urine clear Neuro: Speech: normal speech Extrem: General: normal to inspection Psych: Other: Pleasant, normal affect Objective Data Vital Signs Vital Signs: Vital Signs - 24 hr 04/29/25 13:24 04/29/25 14:00 04/29/25 19:45 Temperature 98.8 F Pulse Rate 72 63 Respiratory Rate 20 15 Blood Pressure 132/41 L Pulse Oximetry 100 95 Oxygen Delivery Room Air 04/29/25 19:48 04/29/25 19:57 04/29/25 20:00 Temperature Pulse Rate 60 62 Respiratory Rate 20 20 Blood Pressure Pulse Oximetry Oxygen Delivery Autopap 04/29/25 21:37 04/29/25 22:15 04/30/25 02:07 Temperature 97.3 F L Pulse Rate 61 58 L 59 L Respiratory Rate 20 17 20 Blood Pressure 176/46 H Pulse Oximetry 95 96 98 Oxygen Delivery Autopap Autopap 04/30/25 02:08 04/30/25 02:14 04/30/25 06:20 Temperature 97.4 F L Pulse Rate 59 L 60 60 Respiratory Rate 20 20 20 Blood Pressure 173/49 H Pulse Oximetry 95 Oxygen Delivery 04/30/25 07:38 04/30/25 07:38 04/30/25 07:49 Temperature Pulse Rate 61 64 Respiratory Rate 16 16 Blood Pressure Pulse Oximetry 91 Oxygen Delivery Room Air 04/30/25 08:00 04/30/25 09:00 04/30/25 13:06 Temperature 98.4 F Pulse Rate 62 60 Respiratory Rate 26 H 16 Blood Pressure 129/42 L Pulse Oximetry 94 Oxygen Delivery Room Air 04/30/25 13:15 04/30/25 13:16 Temperature 97.6 F Pulse Rate 56 L 59 L Respiratory Rate 16 16 Blood Pressure 144/42 H Pulse Oximetry 96 Oxygen Delivery Intake/Output Intake/Output: Intake & Output 04/27/25 04/28/25 04/29/25 04/30/25 23:59 23:59 23:59 23:59 Intake Total 9343 004 6788 1185 Output Total 0154 2260 6305 850 [facility] -1515 -1150 -410 335 Meds/Results Medications: Active Medications Generic Name Dose Route Start Last Admin Trade Name Freq PRN Reason Stop Dose Admin Acetaminophen 650 mg 04/23/25 14:09 04/29/25 02:22 Acetaminophen 325 Mg Tablet PO 650 mg Q4H PRN Administration Mild Pain (1-3) or Fever Albuterol/Ipratropium 3 ml 04/15/25 07:30 04/30/25 13:04 Ipratropium 0.5 Mg/Albuterol Sulfate 2.5 Mg Ampul.Neb 3 Ml INHALATION 3 ml Q6HRT FARHANA Administration Amlodipine Besylate 10 mg 04/21/25 09:00 04/30/25 08:57 Amlodipine Besylate 10 Mg Tablet PO 10 mg DAILY FARHANA Administration Aspirin 81 mg 04/19/25 14:30 04/30/25 08:57 Aspirin 81 Mg Enteric Tablet PO 81 mg DAILY FARHANA Administration Atorvastatin Calcium 80 mg 04/19/25 14:30 04/30/25 08:57 Atorvastatin 40 Mg Tablet PO 80 mg DAILY FARHANA Administration Baclofen 10 mg 04/21/25 08:19 04/30/25 08:57 Baclofen 10 Mg Tablet PO 10 mg TID PRN Administration Muscle Spasm Calcium Carbonate 500 mg 04/21/25 09:00 04/30/25 08:57 Calcium Carbonate (Oscal) 500 Mg Tablet PO 500 mg QAM FARHANA Administration Clopidogrel Bisulfate 75 mg 04/19/25 14:30 04/30/25 08:57 Clopidogrel Bisulfate 75 Mg Tablet PO 75 mg DAILY FARHANA Administration Dextrose 12.5 gm 04/23/25 13:05 Dextrose 50% 25 Gm/50 Ml Syringe IV PUSH PRN PRN Hypoglycemia Protocol Duloxetine HCl 60 mg 04/19/25 14:30 04/30/25 08:56 Duloxetine Hcl 60 Mg Capsule. PO 60 mg QAM FARHANA Administration Ezetimibe 10 mg 04/19/25 14:30 04/30/25 08:57 Ezetimibe 10 Mg Tablet PO 10 mg DAILY FARHANA Administration Empagliflozin 25 mg 04/19/25 14:35 04/30/25 08:56 Empagliflozin 25 Mg Tablet PO 05/20/25 14:34 25 mg DAILY FARHANA Administration Gabapentin 300 mg 04/21/25 21:10 04/30/25 13:17 Gabapentin 300 Mg Capsule PO 300 mg 0900,1400,2100 FARHANA Administration Glucagon 1 mg 04/23/25 13:05 Glucagon For Inj 1 Mg Vial IM PRN PRN Hypoglycemia Protocol Glucose 15 gm 04/23/25 13:05 Glucose Oral Gel 15 Gm Of Glucse In 37.5 Gm Tube PO PRN PRN Hypoglycemia Protocol Hydralazine HCl 10 mg 04/18/25 11:43 04/21/25 18:31 Hydralazine Hcl 20 Mg/Ml Vial IV PUSH 10 mg Q4H PRN Administration Blood Pressure - High Hydralazine HCl 50 mg 04/19/25 14:00 04/30/25 13:17 Hydralazine Hcl 50 Mg Tablet PO 50 mg 0900,1400,2100 FARHANA Administration Hydrochlorothiazide 12.5 mg 04/28/25 12:15 04/30/25 08:57 Hydrochlorothiazide 12.5 Mg Capsule PO 12.5 mg QAM FARHANA Administration Dextrose 1,000 mls @ 100 mls/hr 04/23/25 13:05 Dextrose 5% 1,000 Ml IVPB PRN PRN Hypoglycemia Protocol Sodium Chloride 1,000 mls @ 75 mls/hr 04/29/25 15:50 04/30/25 06:48 Normal Saline Iv IV CONT 75 mls/hr .[id number] FARHANA Administration Insulin Aspart 7 units 04/23/25 17:00 04/30/25 12:06 Insulin Aspart (*Bkc) 100 Units/Ml 0.05 units/kg (7 units) 7 units SUB-Q Administration TIDWM FARHANA Insulin Glargine 20 units 04/23/25 13:10 04/30/25 08:58 Insulin Glargine (*Bkc) 100 Units/Ml 0.15 units/kg (20 units) 20 units SUB-Q Administration DAILY FARHANA Labetalol HCl 10 mg 04/20/25 11:43 Labetalol Hcl Inj 100 Mg/20 Ml Vial IV PUSH BID PRN Blood Pressure - High Lidocaine 1 patch 04/21/25 18:00 04/30/25 08:57 Lidocaine 5% Patch TRANSDERM Not Given DAILY [facility] Losartan Potassium 100 mg 04/21/25 09:00 04/30/25 08:57 Losartan Potassium 100 Mg Tablet PO 100 mg DAILY FARHANA Administration Melatonin 5 mg 04/21/25 21:00 04/29/25 21:07 Melatonin 5 Mg Tablet PO 5 mg HS FARHANA Administration Pantoprazole Sodium 40 mg 04/24/25 09:00 04/30/25 08:57 Pantoprazole 40 Mg Tablet PO 40 mg QAM FARHANA Administration Quetiapine Fumarate 200 mg 04/24/25 21:00 04/29/25 21:06 Quetiapine Fumarate 100 Mg Tablet PO 200 mg HS FARHANA Administration Rivaroxaban 2.5 mg 04/19/25 21:00 04/30/25 08:56 Rivaroxaban 2.5 Mg Tablet PO 2.5 mg Q12H FARHANA Administration Senna/Docusate Sodium 2 tab 04/21/25 08:19 04/28/25 12:37 Senna/Docusate Sodium Tablet PO 2 tab BID PRN Administration Constipation Sodium Chloride 20 ml 04/15/25 02:07 04/20/25 06:24 Central Line Flush IV PUSH 20 ml PRN PRN Administration after blood draws Tamsulosin HCl 0.4 mg 04/26/25 11:40 04/30/25 08:57 Tamsulosin Hcl 0.4 Mg Capsule PO 0.4 mg QAM FARHANA Administration Radiology Results: ITS Impressions Abdomen X-Ray 04/14/25 20:46 IMPRESSION: 1. Endotracheal tube and orogastric tube in expected positions. 2. Decreased left lung volume with elevation the left hemidiaphragm and patchy airspace opacities throughout the left lung which could represent atelectasis and/or pneumonia. 3. Pulmonary vascular congestion with increased interstitial pattern in the right perihilar region which could represent mild pulmonary edema and/or pneumonia. Head CT 04/15/25 08:50 IMPRESSION: 1. No acute intracranial abnormality. Cervical Spine CT 04/24/25 08:34 IMPRESSION: No evidence for cervical spine fracture or traumatic subluxation. Multilevel degenerative changes of the cervical spine. Lumbar Spine CT 04/24/25 14:05 IMPRESSION: 1. Severe lower thoracic and lumbar spondylosis with multilevel central canal and bilateral neural foraminal narrowing. Chest X-Ray 04/27/25 18:21 Impression: CHF. Early basilar pneumonia suspected Modified Barium Swallow 04/28/25 14:53 IMPRESSION: Virtual dysphagia with trace laryngeal penetration without aspiration with thin liquids. Please correlate with speech pathologist findings and specific feeding recommendations. Labs Labs: Laboratory Results - last 24 hr 04/29/25 04/29/25 04/30/25 17:06 21:36 05:05 WBC 8.3 RBC 3.19 L Hgb 9.2 L Hct 30.2 L MCV 94.7 MCH 28.8 MCHC 30.5 L RDW 14.5 Plt Count 110 L MPV 11.4 H Immature Gran % (Auto) 0.5 Neut % (Auto) 69.2 Lymph % (Auto) 17.6 L [place] % (Auto) 6.8 Eos % (Auto) 5.2 H Baso % (Auto) 0.7 Lymph # (Auto) 1.46 [place] # (Auto) 0.6 Eos # (Auto) 0.4 H Baso # (Auto) 0.1 Abs Immat Gran (auto) 0.04 H Absolute Neuts (auto) 5.7 Absolute Nucleated RBC 0.000 Nucleated RBC % 0.0 Sodium 138 Potassium 3.8 Chloride 108 H Carbon Dioxide 24 Anion Gap 6 BUN 22 H Creatinine 0.96 Estim Creat Clear Calc 74 Estimated GFR 58 L Glucose 168 H POC Capillary Glucose 183 H 160 H Calcium 8.7 Magnesium 2.2 04/30/25 04/30/25 08:22 11:49 WBC RBC Hgb Hct MCV MCH MCHC RDW Plt Count MPV Immature Gran % (Auto) Neut % (Auto) Lymph % (Auto) [place] % (Auto) Eos % (Auto) Baso % (Auto) Lymph # (Auto) [place] # (Auto) Eos # (Auto) Baso # (Auto) Abs Immat Gran (auto) Absolute Neuts (auto) Absolute Nucleated RBC Nucleated RBC % Sodium Potassium Chloride Carbon Dioxide Anion Gap BUN Creatinine Estim Creat Clear Calc Estimated GFR Glucose POC Capillary Glucose 152 H 129 H Calcium Magnesium
--- NOTE | 2025-04-30 14:28 | PM.DS ---
DS: Admitting Diagnosis Discharge Date 04/30/2025 Admitting Diagnosis Intentional overdose DS: Discharge Diagnosis Discharge Diagnosis (1) Suicide attempt: Code(s): T14.91XA - Suicide attempt, initial encounter Status: Acute (2) Intentional drug overdose: Code(s): T50.902A - Poisoning by unspecified drugs, medicaments and biological substances, intentional self-harm, initial encounter Status: Acute (3) Acute muscle weakness: Code(s): M62.81 - Muscle weakness (generalized) Status: Acute DS: Summary Hospital Course Hospital Course: A 69-year-old female with PMH insulin-dependent diabetes, hypertension, chronic wounds, status post left BKA, right lower extremity neuropathy and chronic weakness, impression, anxiety, chronic low back pain muscle spasms, hyperlipidemia, arthritis presents to [facility] ED on 04/14/2026 with intentional poly medication overdose with suicide attempt. She told the family ?she is over it, cannot do it anymore?. She took 10 of each of her morning medications. She has a long list including amlodipine losartan baclofen aripiprazole duloxetine gabapentin rivaroxaban, lamotrigine, clopidogrel, Tylenol. Patient received insulin infusion, patient was hypotensive. She had altered mental status. She is intubated for airway protection. Received large volume fluid resuscitation. Received vasopressors. She was liberated from mechanical ventilation successfully and her circulatory shock and respiratory failure resolved. She was treated with antibiotics for possible aspiration pneumonia. Post extubation he had severe muscle weakness of her bilateral upper extremities with hypotonia. This could have been due to critical care myopathy or baclofen/gabapentin overdose. At 1st, she was unable to move her upper extremities at all, eventually on discharge she has 1/5 strength of bilateral upper extremities and she feels it is progressively improving. She was seen by Neurology and they did not have any further recommendations aside from to continue PT/OT. She was seen by Psychiatry. Patient feels like she has a reset in no longer has any suicidal ideation. Resources were given. She is advised to follow with psychiatry. She was up titrated to a goal dose of Seroquel to 100 mg q.h.s. and tolerating. QTC at serum steady state is acceptable. Telemetry again aripiprazole and amantadine discontinued. Outpatient evaluation for sleep apnea to be arranged. A suicide safety plan was formed. Patient has sister support and a PET. Hydrochlorothiazide initiated for better control of blood pressure. Baclofen gabapentin and Soliqua on hold, to be reviewed as she she is eating more and increasing her strength. She had urinary retention could be due to the neuropathy as well. She failed a voiding trial and will be discharged with a Olvera catheter. Follow-up with Urology. The patient wishes to be DNR. He is stable for discharge to [facility] for rehab. All of her questions and concerns were answered to satisfaction. Time Spent with Patient Time attestation: Total time spent providing and/or coordinating discharge services: DS: Data Data Completed and Pending Labs on day of discharge: Labs from last 24 hours 04/30/25 04/30/25 04/30/25 11:49 08:22 05:05 WBC 8.3 RBC 3.19 L Hgb 9.2 L Hct 30.2 L MCV 94.7 MCH 28.8 MCHC 30.5 L RDW 14.5 Plt Count 110 L MPV 11.4 H Immature Gran % (Auto) 0.5 Neut % (Auto) 69.2 Lymph % (Auto) 17.6 L Gaines % (Auto) 6.8 Eos % (Auto) 5.2 H Baso % (Auto) 0.7 Lymph # (Auto) 1.46 Gaines # (Auto) 0.6 Eos # (Auto) 0.4 H Baso # (Auto) 0.1 Abs Immat Gran (auto) 0.04 H Absolute Neuts (auto) 5.7 Absolute Nucleated RBC 0.000 Nucleated RBC % 0.0 Sodium 138 Potassium 3.8 Chloride 108 H Carbon Dioxide 24 Anion Gap 6 BUN 22 H Creatinine 0.96 Estim Creat Clear Calc 74 Estimated GFR 58 L Glucose 168 H POC Capillary Glucose 129 H 152 H Calcium 8.7 Magnesium 2.2 04/29/25 04/29/25 21:36 17:06 WBC RBC Hgb Hct MCV MCH MCHC RDW Plt Count MPV Immature Gran % (Auto) Neut % (Auto) Lymph % (Auto) Gaines % (Auto) Eos % (Auto) Baso % (Auto) Lymph # (Auto) Gaines # (Auto) Eos # (Auto) Baso # (Auto) Abs Immat Gran (auto) Absolute Neuts (auto) Absolute Nucleated RBC Nucleated RBC % Sodium Potassium Chloride Carbon Dioxide Anion Gap BUN Creatinine Estim Creat Clear Calc Estimated GFR Glucose POC Capillary Glucose 160 H 183 H Calcium Magnesium Discharge Plan Discharge Attending physician on discharge: Padma Berrios Consulting providers: Keith Parada; Yong Mercado; Antione Deras; Tu Ayoub; Swapnil Murillo Discharging Clinician: Padma Berrios Patient Disposition: SNF Activity: may shower Diet: diabetic and other - see discharge instructions Wound Care Instructions: other - see discharge instructions Discharge Instructions: Minced and moist, level 5 diet. Thin liquids. Michael b.i.d. for wound healing. Glucerna shake. Continue dietitian evaluations. Continue PT/OT evaluations and treatment. Continue close follow-up with Psychiatry. Set up follow-up with Urology. Follow-up with pulmonology for evaluation of sleep apnea. Patient Instructions: Rivaroxaban (By mouth) Patient Language: Cape Verdean Stand Alone Forms: General Discharge Information, Shelter Discharge Follow-up/Referrals: Isacc Flores APRN [Advanced Practice Nurse, Psychiatry] Referral Note: follow up with primary psychiatric care provider Penny Rivera DNP, PMHNP-. Problems: Suicide attempt Jillian Marrero APRN [Advanced Practice Nurse, Urology] - 2 Weeks Problems: Urinary retention Discharge Medications: New quetiapine [Seroquel] 100 mg Tablet 200 mg PO HS Qty: 0 0RF hydrochlorothiazide 12.5 mg Capsule 12.5 mg PO QAM Qty: 0 0RF Continued atorvastatin 80 mg tablet 80 mg PO DAILY clopidogrel 75 mg tablet 75 mg PO DAILY amlodipine 10 mg tablet 10 mg PO DAILY hydralazine 50 mg tablet 50 mg PO 0900,1400,2100 ezetimibe 10 mg tablet 10 mg PO DAILY duloxetine 60 mg capsule,delayed release(DR/EC) 60 mg PO QAM dapagliflozin propanediol [Farxiga] 10 mg tablet 10 mg PO DAILY aspirin [Adult Low Dose Aspirin] 81 mg tablet,delayed release (DR/EC) 81 mg PO DAILY calcium carbonate [Super Calcium] 600 mg calcium (1,500 mg) tablet 600 mg PO DAILY cholecalciferol (vitamin D3) [Vitamin D3] 50 mcg (2,000 unit) capsule 2,000 unit PO DAILY losartan 100 mg tablet 100 mg PO DAILY melatonin 5 mg tablet 5 mg PO HS rivaroxaban [Xarelto] 2.5 mg tablet 2.5 mg PO Q12H multivitamin [Daily Multi-Vitamin] Tablet 1 tablet PO DAILY ascorbic acid (vitamin C) [C-500] 500 mg tablet 500 mg PO DAILY insulin aspart U-100 [Novolog FlexPen U-100 Insulin] 100 unit/mL (3 mL) insulin pen 20 unit SUBCUT TIDWM tamsulosin 0.4 mg Capsule 0.4 mg PO HS Qty: 30 0RF sennosides-docusate sodium [Senokot-S] 8.6-50 mg Tablet 2 tab PO BID PRN (Reason: constipation) Held baclofen 10 mg tablet 10 mg PO TID PRN (Reason: muscle spasm) Hold Instructions: Hold until the weakness has resolved. Patient Comments: it is not prn she takes 0900,1400,2100 gabapentin 300 mg capsule 300 mg PO 0900,1400,2100 Hold Instructions: Hold until muscle weakness has resolved Soliqua 100/33 100 unit-33 mcg/mL insulin pen 45 unit subcut Q12H Hold Instructions: Revisit appropriate use of this medication as you begin to eat more. Discontinued acetaminophen 325 mg tablet 325 mg PO 0900,1400,2100 lamotrigine 100 mg tablet 100 mg PO Q12H aripiprazole 5 mg tablet 5 mg PO DAILY Date of admission: 04/14/25 23:03 Primary Care Provider: TcSoy Admitting Provider: Josh Brooks Attending physician on admission: Josh Brooks Condition: Improved
--- NOTE | 2025-04-30 14:37 | ECG_ITS ---
Test Date: 2025-04-30 14:57:14 Measurements Intervals [place] Rate: 62 P: 40 VT: 133 QRS: -25 QRSD: 121 T: 22 QT: 405 QTc: 414 Interpretive Statements SINUS RHYTHM BORDERLINE LEFT AXIS DEVIATION [QRS AXIS < -20] LEFT VENTRICULAR HYPERTROPHY AND ST-T CHANGE [VOLTAGE CRITERIA PLUS ST/T ABNORMALITY] INCOMPLETE LEFT BUNDLE BRANCH BLOCK ABNORMAL ECG Compared to ECG 04/14/2025 21:01:46 NO DIFFERENCE Electronically Signed On 04-30-2025 16:28:27 CDT by Soy Bryant M.D.
--- NOTE | 2025-04-30 15:29 | WNDPHOTO ---
PHOTO ONLY - See Nursing Notes and/ or assessments for documentation.
== END 2025-04-30 16:10 | DRG 917 ==
LOC: ANHED 19:54 → ANHICU 23:19 → ANH2MED 04-22 22:08
PROVIDERS: Internal Medicine; Nurse Practitioner; Admitting Provider Internal Medicine; Emergency Provider Emergency Medicine; PCP Internal Medicine; Visit Provider General Practice
DX: T46.1X2A Poisoning by calcium-channel blockers, intentional self-harm, initial encounter (principal); J69.0 Pneumonitis due to inhalation of food and vomit; R57.8 Other shock; J96.90 Respiratory failure, unspecified, unspecified whether with hypoxia or hypercapnia; N17.9 Acute kidney failure, unspecified; F31.5 Bipolar disorder, current episode depressed, severe, with psychotic features; Z68.42 Body mass index [BMI] 45.0-49.9, adult; T39.1X2A Poisoning by 4-Aminophenol derivatives, intentional self-harm, initial encounter; T46.5X2A Poisoning by other antihypertensive drugs, intentional self-harm, initial encounter; T42.8X2A Poisoning by antiparkinsonism drugs and other central muscle-tone depressants, intentional self-harm, initial encounter; T42.6X2A Poisoning by other antiepileptic and sedative-hypnotic drugs, intentional self-harm, initial encounter; T45.522A Poisoning by antithrombotic drugs, intentional self-harm, initial encounter; T50.992A Poisoning by other drugs, medicaments and biological substances, intentional self-harm, initial encounter; E87.5 Hyperkalemia; E11.51 Type 2 diabetes mellitus with diabetic peripheral angiopathy without gangrene; I73.9 Peripheral vascular disease, unspecified; F41.1 Generalized anxiety disorder; G47.33 Obstructive sleep apnea (adult) (pediatric); E66.01 Morbid (severe) obesity due to excess calories; I10 Essential (primary) hypertension; R33.9 Retention of urine, unspecified; R13.10 Dysphagia, unspecified; M62.81 Muscle weakness (generalized); Z20.822 Contact with and (suspected) exposure to COVID-19; Z79.82 Long term (current) use of aspirin; Z79.01 Long term (current) use of anticoagulants; Z79.4 Long term (current) use of insulin; Z89.512 Acquired absence of left leg below knee
CPT/HCPCS: 31500; 36415; 36556; 36600; 70450; 71045; 72125; 72131; 74230; 80048; 80053; 80143; 80179; 80202; 80307; 81001; 82077; 82140; 82310; 82330; 82375; 82805; 82948; 83036; 83050; 83605; 83690; 83735; 84100; 84443; 84484; 85018; 85025; 85055; 85610; 85730; 87040; 87070; 87086; 87205; 87637; 87641; 92526; 92610; 92611; 93005; 94002; 94003; 94640; 94667; 94668; 94669; 96365; 96367; 96375; 97110; 97162; 97166; 97530; 99291; A9270; C1751; J0166; J0168; J0360; J0612; J0616; J0692; J0696; J1815; J1836; J1938; J2250; J2405; J2470; J2543; J3010; J3373; J7030; J7050; J7060; J7120

== ENCOUNTER 2025-05-27 23:10 | Emergency (ER) | payer MEDICARE, SELFPAY ==
--- NOTE | ~2025-05-27 | XR_ITS ---
Examination: XR chest 1V portable Clinical History: Weakness Comparison: Weakness Technique: Portable AP Findings: Heart size normal. Right paratracheal linear interface. Mild left basilar atelectasis. Lungs otherwise clear. No acute bony abnormality. IMPRESSION: 1. Right paratracheal linear interface likely skinfold rather than pneumomediastinum. Recommend repeat x-rays and/or CT chest. Reviewed, dictated and finalized at location R. IMPRESSION: 1. Right paratracheal linear interface likely skinfold rather than pneumomedia stinum. Recommend repeat x-rays and/or CT chest.
--- NOTE | ~2025-05-27 | CT_ITS ---
CT abdomen pelvis w con Clinical History: Sacral wound . Comparison: 02/13/2025 Technique: Axial images lung bases to symphysis pubis 100 mL Omnipaque 350 Coronal, sagittal reformats CT images acquired with automatic exposure control for dose reduction DLP: 2131 mGy-cm Findings: Lung bases: Dependent atelectasis. Visualized heart and pericardium: Unremarkable. Liver: Cirrhosis. Enlarged. Steatosis. Gallbladder: Removed. Spleen: Enlarged. Pancreas: Unremarkable. Adrenal glands: Unremarkable. Kidneys: Right kidney- No hydronephrosis. No renal stones. Left kidney- No hydronephrosis. Probable small stone. Distal esophagus/stomach: Unremarkable. Small bowel loops: Normal caliber and wall thickness. Colon: Normal caliber and wall thickness. Normal RLQ appendix. Rectum stool-filled Nodes: No enlarged nodes. Peritoneum: No ascites. No free air. Urinary bladder: Olvera. Uterus: Atrophic and/or removed. Adnexa: No masses. Bones: No acute bony abnormality. Soft tissues: Extensive sacral and left buttock subcutaneous emphysema.. Aorta: No aneurysm or dissection. Atherosclerotic disease. IVC: Unremarkable. Main portal vein/SMV/splenic vein: Patent. IMPRESSION: 1. Extensive sacral and left buttock subcutaneous emphysema highly worrisome for gas forming infection/necrotizing infection. Urgent surgical consultation recommended. Reviewed, dictated and finalized at location R. IMPRESSION: 1. Extensive sacral and left buttock subcutaneous emphysema highly worrisome f or gas forming infection/necrotizing infection. Urgent surgical consultation re commended.
[2025-05-27 23:14] VITALS: BP 118/47; PULSE 72; RESP 19; TEMP 37.1; O2SAT 96
[2025-05-27 23:33] VITALS: PULSE 73; RESP 22; O2SAT 96
[2025-05-27 23:52] VITALS: PULSE 70; RESP 17; O2SAT 96
[2025-05-28] VITALS (41 sets, daily range): BP systolic 89–135; BP diastolic 40–59; PULSE 50–76; RESP 10–24; O2SAT 94–100
[2025-05-28 00:50] LABS: Alanine Aminotransferase 37 U/L (6-35); Albumin Level 2.9 g/dL (3.5-5.1); Alkaline Phosphatase 128 U/L (38-126); Anion Gap 9 mmol/L (4-12); Aspartate Amino Transferase 35 U/L (14-36); Bilirubin,Total 0.9 mg/dL (0.2-1.3); Blood Urea Nitrogen 37 mg/dL (7-17); Calcium 11.1 mg/dL (8.4-10.2); Carbon Dioxide 20 mmol/L (22-30); Chloride 99 mmol/L (98-107); Estimated CRCL calculation 84 ml/min; Estimated Glomerular Filt Rate > 60; Glucose 174 mg/dL (65-110); Magnesium 2.2 mg/dL (1.6-2.3); Potassium 3.3 mmol/L (3.4-5.0); Sodium 128 mmol/L (137-145); Total Protein 6.2 g/dL (6.3-8.2)
[2025-05-28 01:21] LABS: CRP 25.9 mg/dL (<1.0)
[2025-05-28 02:08] LABS: Hematocrit 28.6 % (37.0-47.0); Hemoglobin 9.2 g/dL (12.0-15.0); Immature Granulocyte Percent A 0.7 % (0-0.5); Lymphocytes Absolute Auto 0.59 K/mm3 (0.9-3.2); Mean Corpuscular HGB Conc 32.2 g/dl (32-36); Mean Corpuscular Hemoglobin 27.9 pg (26-34); Mean Corpuscular Volume 86.7 fl (80-100); Nucleated Red Blood Cells Absolute Auto 0.000 K/mm3 (0.0-0.012); Nucleated Red Blood Cells Perc 0.0 % (0.0-0.2); Platelet Count Result 183 k/mm3 (150-375); Red Blood Count 3.30 M/mm3 (4.2-5.4); White Blood Count 15.6 K/mm3 (4.5-10.0)
[2025-05-28] MEDS: CLINDAMYCIN 900 MG/D5W 50 ML 900 MG/50 ML PIGGYBACK 50 MG IVPB (02:09)
[2025-05-28] MEDS: VANCOMYCIN 1,250 MG/NS 250 ML 1,250 MG/250 ML BAG 166.67 MG IVPB ×2 (02:10)
--- NOTE | 2025-05-28 02:15 | ED.GENADULT ---
HPI - General Adult General Chief complaint: Skin/Abscess/Foreign Body Stated complaint: Bed sores getting worse Time Seen by Provider: 05/27/25 23:43 History of Present Illness HPI narrative: Patient is a 69-year-old female who presents emergency department with chief complaint of bedsores the patient was a recent admission at [facility] and has had increasing wounds in her buttock area the staff reported that the wounds have become more open and are draining Related Data Home Medications ?Medication ?Instructions ?Recorded ?Confirmed ?Last Taken ?Type amlodipine 10 mg tablet 10 mg PO DAILY 02/13/25 04/15/25 02/12/25 History ascorbic acid (vitamin C) 500 mg 500 mg PO DAILY 02/13/25 04/15/25 02/12/25 09:00 History tablet (C-500) aspirin 81 mg tablet,delayed 81 mg PO DAILY 02/13/25 04/15/25 02/12/25 09:00 History release (Adult Low Dose Aspirin) atorvastatin 80 mg tablet 80 mg PO DAILY 02/13/25 04/15/25 02/12/25 History baclofen 10 mg tablet 10 mg PO TID PRN muscle spasm 02/13/25 04/15/25 Unknown History Held on 04/30/25. Instructions: Hold until the weakness has resolved. calcium carbonate (Super Calcium) 600 mg PO DAILY 02/13/25 04/15/25 02/12/25 09:00 History cholecalciferol (vitamin D3) 50 2,000 unit PO DAILY 02/13/25 04/15/25 02/12/25 09:00 History mcg (2,000 unit) capsule (Vitamin D3) clopidogrel 75 mg tablet 75 mg PO DAILY 02/13/25 04/15/25 02/12/25 History dapagliflozin propanediol 10 mg 10 mg PO DAILY 02/13/25 04/15/25 02/12/25 History tablet (Farxiga) duloxetine 60 mg capsule,delayed 60 mg PO QAM 02/13/25 04/15/25 02/12/25 History release ezetimibe 10 mg tablet 10 mg PO DAILY 02/13/25 04/15/25 02/12/25 History gabapentin 300 mg capsule 300 mg PO 0900,1400,2100 02/13/25 04/15/25 02/12/25 09:00 History Held on 04/30/25. Instructions: Hold until muscle weakness has resolved hydralazine 50 mg tablet 50 mg PO 0900,1400,2100 02/13/25 04/15/25 02/12/25 09:00 History insulin aspart U-100 100 unit/mL 20 unit subcut TIDWM 02/13/25 04/15/25 02/12/25 12:00 History (3 mL) subcutaneous pen (Novolog FlexPen U-100 Insulin aspart) insulin glargine 100 45 unit subcut Q12H 02/13/25 04/15/25 02/12/25 09:00 History unit-lixisenatide 33 mcg/mL subcutaneous pen (Soliqua 100/33) Held on 04/30/25. Instructions: Revisit appropriate use of this medication as you begin to eat more. losartan 100 mg tablet 100 mg PO DAILY 02/13/25 04/15/25 02/12/25 09:00 History melatonin 5 mg tablet 5 mg PO HS 02/13/25 04/15/25 02/11/25 21:00 History multivitamin (Daily Multi-Vitamin 1 tablet PO DAILY 02/13/25 04/15/25 02/12/25 09:00 History tablet) rivaroxaban 2.5 mg tablet (Xarelto) 2.5 mg PO Q12H 02/13/25 04/15/25 02/12/25 09:00 History sennosides 8.6 mg-docusate sodium 2 tab PO BID PRN constipation 04/15/25 04/15/25 Unknown History 50 mg tablet (Senokot-S) Allergies Allergy/AdvReac Type Severity Reaction Status Date / Time latex Allergy Unknown Unknown Verified 02/12/25 22:38 Review of Systems Review of Systems: A 10 system review of systems was completed on the patient and is negative except for what is stated in the HPI. Nursing and ancillary documentation was reviewed. [facility] Past Medical History Medical History Generalized anxiety disorder Surgical History Surgical History Hx of left BKA Family History Family History Father Acute myocardial infarction Mother Diabetes mellitus Social History Social History Smoking status: Smoker, status unknown Tobacco type: cigarettes Second hand tobacco smoke exposure: Yes Alcohol intake: unknown Drinks per week: 0 Substance use: unknown Substance use type: does not use Do You Feel Safe in your Home?: Yes Lack of Transportation: No Lack of Food: Never True Current Housing: I Have Housing Concerned About Future Housing: No Difficulty Paying Gas/Electric Bills: No Difficulty Paying for Meds: No Currently Unemployed: No Education: Decline to Answer Difficulty w/ Childcare or Family Care: No Spiritual care concerns: No Exam Narrative: GENERAL: Well-appearing, well-nourished, and in no acute distress. HEAD: Normocephalic, atraumatic. EYES: PERRLA and EOMI. ENT: Nares clear, no rhinorrhea or epistaxis. Mucous membranes moist. NECK: Supple. CHEST: Clear to auscultation. No respiratory distress. HEART: Regular rate and rhythm. No murmur heard. Normal peripheral pulses. ABDOMEN: Soft, nontender, nondistended, normal active bowel sounds. EXTREMITIES: Normal range of motion lower extremities left BKA, decreased movement of the upper extremities that is currently chronic. No edema. SKIN: Warm, dry, no rash. Large wound with eschar in the sacral area NEURO: No focal deficits. Alert and oriented x3. PSYCH: Normal mood and affect. Course Vital Signs Vital signs: Vital Signs Temperature 37.1 C 05/27/25 23:14 Pulse Rate 72 05/27/25 23:14 Respiratory Rate 19 05/27/25 23:14 Blood Pressure 118/47 L 05/27/25 23:14 Pulse Oximetry 96 05/27/25 23:14 Temperature 37.1 C 05/27/25 23:14 Pulse Rate 52 L 05/28/25 05:01 Respiratory Rate 14 05/28/25 05:01 Blood Pressure 117/43 L 05/28/25 05:01 Pulse Oximetry 99 05/28/25 05:01 Medical Decision Making [facility] Narrative Medical decision making narrative: Differential diagnosis includes cellulitis, abscess, necrotizing fasciitis, CT scan was obtained that shows extensive left buttocks and sacral soft tissue emphysema concerning for necrotizing soft tissue infection White count was 15.6 electrolytes showed a BUN of 37 and a creatinine of 0.88 lactic acid 0.7 CRP was 25.9 pro callus 0.8 urinalysis was turbid with greater than 100 white blood cells also yeast was present in the urine Patient was started on clindamycin meropenem and vancomycin The case was discussed with our on-call surgeon who recommended due to the necrotizing infection the patient be transferred to a higher level care The case was discussed with the transfer center at [facility] general surgery recommended the patient come to the emergency department the case was accepted by Dr. Nelson in the emergency department. Vital Signs Vital Signs: Vital Signs Temperature 37.1 C 05/27/25 23:14 Pulse Rate 72 05/27/25 23:14 Respiratory Rate 19 05/27/25 23:14 Blood Pressure 118/47 L 05/27/25 23:14 Pulse Oximetry 96 05/27/25 23:14 Temperature 37.1 C 05/27/25 23:14 Pulse Rate 52 L 05/28/25 05:01 Respiratory Rate 14 05/28/25 05:01 Blood Pressure 117/43 L 05/28/25 05:01 Pulse Oximetry 99 05/28/25 05:01 Lab Data 05/28/25 02:00 05/28/25 00:36 Labs: Lab Results 05/28/25 05/28/25 Range/Units 00:36 02:00 WBC 15.6 H (4.5-10.0) K/mm3 RBC 3.30 L (4.2-5.4) M/mm3 Hgb 9.2 L (12.0-15.0) g/dL Hct 28.6 L (37.0-47.0) % MCV 86.7 (80-100) fl MCH 27.9 (26-34) pg MCHC 32.2 (32-36) g/dl RDW 13.4 (11.5-14.5) % Plt Count 183 D (150-375) k/mm3 MPV 9.5 (7.4-10.4) fl Immature Gran % (Auto) 0.7 H (0-0.5) % Neut % (Auto) 87.3 H (45.5-73.1) % Lymph % (Auto) 3.8 L (18.3-44.2) % Gem % (Auto) 7.1 (2.6-8.5) % Eos % (Auto) 0.8 (0-4.4) % Baso % (Auto) 0.3 (0.2-1.2) % Lymph # (Auto) 0.59 L (0.9-3.2) K/mm3 Gem # (Auto) 1.1 H (0.1-0.6) K/mm3 Eos # (Auto) 0.1 (0-0.3) K/mm3 Baso # (Auto) 0.1 (0.0-0.1) K/mm3 Abs Immat Gran (auto) 0.11 H (0.00-0.031) K/mm3 Absolute Neuts (auto) 13.6 H (1.3-6.7) K/mm3 Absolute Nucleated RBC 0.000 (0.0-0.012) K/mm3 Nucleated RBC % 0.0 (0.0-0.2) % ESR > 140 H (0-20) mm/hr PT 17.3 H (11.1-14.7) Seconds INR 1.4 APTT 39.3 H (22.3-36.8) Seconds Sodium 128 L (137-145) mmol/L Potassium 3.3 L (3.4-5.0) mmol/L Chloride 99 (98-107) mmol/L Carbon Dioxide 20 L (22-30) mmol/L Anion Gap 9 (4-12) mmol/L BUN 37 H D (7-17) mg/dL Creatinine 0.88 (0.7-1.0) mg/dL Estim Creat Clear Calc 84 ml/min Estimated GFR > 60 (59 - ) Glucose 174 H (65-110) mg/dL Lactic Acid 0.7 (0.7-2.0) mmol/L Calcium 11.1 H (8.4-10.2) mg/dL Magnesium 2.2 (1.6-2.3) mg/dL Total Bilirubin 0.9 (0.2-1.3) mg/dL AST 35 (14-36) U/L ALT 37 H (6-35) U/L Alkaline Phosphatase 128 H (38-126) U/L C-Reactive Protein 25.9 H (<1.0) mg/dL Total Protein 6.2 L (6.3-8.2) g/dL Albumin 2.9 L (3.5-5.1) g/dL Procalcitonin 0.8 ng/mL Urine Color Dark yellow (Yellow) Urine Appearance Turbid H (Clear) Urine pH 5.0 (5.0-9.0) Ur Specific [place] 1.037 H (1.001-1.035) Urine Protein 2+ H (Negative) mg/dL Urine Glucose (UA) Trace H (Negative) mg/dL Urine Ketones Trace H (Negative) mg/dL Ur Blood (Man) Trace (Negative) Urine Nitrate Negative (Negative) Urine Bilirubin 1+ H (Negative) Urine Urobilinogen 1.0 (<2.0) mg/dL Add Ur Microanalysis Reviewed Leukocyte Esterase Rfl 3+ H (Negative) RAVINDER/UL Urine RBC 51-100 H (0-2) /hpf Urine WBC >100 H (0-3) /hpf Ur Squamous Epith Cells Few (Few) /hpf Urine Bacteria Rare /hpf Urine Casts >20 Hyaline Casts Present (None) /lpf Urine Yeast (Budding) Present H (None) /hpf Critical Care Time Critical Care Time Critical Care Time: Yes Total Critical Care Time: 35 Discharge Plan Discharge Clinical Impression: Decubitus ulcer of sacral area, Necrotizing fasciitis Patient Disposition: Acute Care Hospital Condition: Stable Patient Language: Ukrainian Prescriptions: No Action atorvastatin 80 mg tablet 80 mg PO DAILY clopidogrel 75 mg tablet 75 mg PO DAILY baclofen 10 mg tablet 10 mg PO TID PRN (Reason: muscle spasm) Patient Comments: it is not prn she takes 0900,1400,2100 amlodipine 10 mg tablet 10 mg PO DAILY hydralazine 50 mg tablet 50 mg PO 0900,1400,2100 ezetimibe 10 mg tablet 10 mg PO DAILY duloxetine 60 mg capsule,delayed release(DR/EC) 60 mg PO QAM dapagliflozin propanediol [Farxiga] 10 mg tablet 10 mg PO DAILY aspirin [Adult Low Dose Aspirin] 81 mg tablet,delayed release (DR/EC) 81 mg PO DAILY calcium carbonate [Super Calcium] 600 mg calcium (1,500 mg) tablet 600 mg PO DAILY cholecalciferol (vitamin D3) [Vitamin D3] 50 mcg (2,000 unit) capsule 2,000 unit PO DAILY gabapentin 300 mg capsule 300 mg PO 0900,1400,2100 losartan 100 mg tablet 100 mg PO DAILY melatonin 5 mg tablet 5 mg PO HS rivaroxaban [Xarelto] 2.5 mg tablet 2.5 mg PO Q12H multivitamin [Daily Multi-Vitamin] Tablet 1 tablet PO DAILY ascorbic acid (vitamin C) [C-500] 500 mg tablet 500 mg PO DAILY insulin aspart U-100 [Novolog FlexPen U-100 Insulin] 100 unit/mL (3 mL) insulin pen 20 unit SUBCUT TIDWM Soliqua 100/33 100 unit-33 mcg/mL insulin pen 45 unit subcut Q12H tamsulosin 0.4 mg Capsule 0.4 mg PO HS Qty: 30 0RF sennosides-docusate sodium [Senokot-S] 8.6-50 mg Tablet 2 tab PO BID PRN (Reason: constipation) quetiapine [Seroquel] 100 mg Tablet 200 mg PO HS Qty: 0 0RF hydrochlorothiazide 12.5 mg Capsule 12.5 mg PO QAM Qty: 0 0RF Follow-up/Referrals: Robin,MD Soy [Primary Care Provider]
[2025-05-28 02:19] LABS: INR 1.4; Prothrombin Time 17.3 Seconds (11.1-14.7)
[2025-05-28 02:20] LABS: Partial Thromboplastin Time 39.3 Seconds (22.3-36.8)
[2025-05-28 02:25] LABS: Add Urine Microscopic? YES; Appearance Urine Turbid (Clear); Budding Yeast Urine Present /hpf; Glucose Urine UA Trace mg/dL (Negative); Leukocyte Esterase Ur 3+ LEU/UL (Negative); Need Manual Microscopic Reviewed; Nitrate Urine Negative (Negative); Non Pathogenic Casts >20; Specific Grav Ur 1.037 (1.001-1.035)
[2025-05-28] MEDS: MEROPENEM 1 GM in SODIUM CHLORIDE 0.9% IV 100 ML 200 ML IVPB (02:31)
[2025-05-28 02:34] LABS: Procalcitonin 0.8 ng/mL
[2025-05-28] MEDS: SODIUM CHLORIDE 0.9% IV 1,000 ML 999 ML IV CONT ×3 (02:59)
[2025-05-28] MEDS: SODIUM CHLORIDE 0.9% IV 800 ML 999 ML IV CONT (02:59)
--- NOTE | 2025-05-28 05:08 | PC.NURSE ---
Update given to [facility].
== END 2025-05-28 06:18 | disposition short-term general hospital (02) ==
PROVIDERS: Emergency Provider Emergency Medicine; PCP Internal Medicine
DX: L89.159 Pressure ulcer of sacral region, unspecified stage (principal); M72.6 Necrotizing fasciitis; R82.998 Other abnormal findings in urine; F41.1 Generalized anxiety disorder; Z89.512 Acquired absence of left leg below knee; Z77.22 Contact with and (suspected) exposure to environmental tobacco smoke (acute) (chronic); Z79.01 Long term (current) use of anticoagulants; Z79.02 Long term (current) use of antithrombotics/antiplatelets; Z79.4 Long term (current) use of insulin
CPT/HCPCS: 36415; 71045; 74177; 80053; 81001; 83605; 83735; 84145; 85025; 85610; 85652; 85730; 86140; 87040; 87077; 87086; 87186; 96365; 96367; 99285; J2185; J3373; J7030; Q9967